=== PATIENT | male | born 1960 | race Caucasian/White ===

== ENCOUNTER 2024-03-14 17:17 | Inpatient (IN) | payer MEDICARE, SELFPAY ==
[2024-03-14] VITALS (10 sets, daily range): BP systolic 117–171; BP diastolic 55–83; PULSE 87–112; RESP 10–32; TEMP 37.6–38.9; O2SAT 90–95; BMI 43.5
--- NOTE | ~2024-03-14 | XR_ITS ---
EXAMINATION: XR CHEST CLINICAL INFORMATION: ET tube and OG tube placement COMPARISON: Earlier same day, and 03/14/2024. TECHNIQUE: AP portable view of the chest was obtained. FINDINGS: ET tube has been placed, lying approximately 1.9 cm above the krystyna. This is satisfactory although retraction of approximately 1 cm should be considered for ideal placement. Enteric tube has been place, with sidehole and tip subdiaphragmatic in the fundus of the stomach. Cardiomegaly and pulmonary abnormalities are unchanged. There is no pneumothorax. No soft tissue or bone abnormality. XR/XR chest 1V IMPRESSION: 1. ET tube and OG tube as detailed. 2. Otherwise no change. No pneumothorax. Electronically signed by: Moose Silva MD 03/19/2024 02:57 PM [facility]
--- NOTE | ~2024-03-14 | CT_ITS ---
CLINICAL HISTORY: altered mentation CT head without contrast Comparison: None Findings: No intra-axial mass, midline shift, hydrocephalus, or acute hemorrhage. There is bilateral frontal encephalomalacia. No significant atrophy-like change or white matter disease. The visualized paranasal sinuses and mastoid air cells are normal. The orbits are within normal limits. No skull fracture. IMPRESSION: 1. No acute intracranial findings. This document has been electronically signed by: Hira Garza MD on 03/14/2024 20:34:26
--- NOTE | ~2024-03-14 | CT_ITS ---
CLINICAL HISTORY: Hypoxia and dyspnea, sudden onset CT angiography chest with contrast. 3D Postprocessing. Comparison: None Findings: The heart size is normal. RV/LV ratio is normal. Unremarkable thoracic aorta and great vessels. No aneurysm. No pulmonary artery filling defects. There is coronary arterial calcification. The visualized thyroid and mediastinum are otherwise unremarkable. There is calcified left pleural plaque and underlying pulmonary scarring versus atelectasis.. The visualized upper abdomen is unremarkable. The bones are intact. IMPRESSION: 1. No pulmonary emboli. This document has been electronically signed by: Hira Garza MD on 03/14/2024 20:36:54
--- NOTE | ~2024-03-14 | CT_ITS ---
CLINICAL HISTORY: Abdominal bloating, unable to obtain history CT abdomen and pelvis with contrast Comparison: None Findings: See report from today's contemporaneously performed chest CT for information regarding findings in the lower chest There are gallstones in a contracted gallbladder with the gallbladder otherwise unremarkable. Unremarkable solid organs. There is right renal parenchymal calculus. There is minimal right hydroureteronephrosis without readily apparent etiology. Correlate for recently passed calculus No bowel obstruction, pneumoperitoneum, or pneumatosis. Urinary bladder is decompressed with indwelling Martins catheter limiting evaluation. Pelvic contents are otherwise unremarkable. Normal appendix. The bones are intact. IMPRESSION: Minimal right hydroureteronephrosis possibly related to recently passed calculus. Correlate clinically.. This document has been electronically signed by: Hira Garza MD on 03/14/2024 20:42:21
--- NOTE | ~2024-03-14 | XR_ITS ---
CLINICAL HISTORY: hypoxia and dyspnea 1 view chest x-ray Comparison: None Findings: Portions of the exam are obscured by overlying material. There is consolidation in the left upper lobe, possible pneumonia, atelectasis, or scarring. Normal size heart. No acute fracture. IMPRESSION: 1. Left upper lobe consolidation, differential considerations noted. This document has been electronically signed by: Hira Garza MD on 03/14/2024 18:22:07
--- NOTE | ~2024-03-14 | XR_ITS ---
EXAMINATION: XR CHEST CLINICAL INFORMATION: f/u PNA COMPARISON: 03/14/2024 chest x-ray and CTPA. TECHNIQUE: Frontal view of the chest was obtained. FINDINGS: Cardiomegaly redemonstrated. Prominence of the vascular pedicle, likely magnification from AP technique. Aortic calcifications. Mild vascular engorgement in the hilar regions. There has been development of nodular appearing parenchymal opacities in the right lower lung, and there are stable linear segmental opacities in the retrocardiac region left lower lobe. Suspect a small left effusion. No discrete soft tissue or osseous abnormality. XR/XR chest 1V IMPRESSION: 1. Developing/worsening nodular opacities right lower lobe, suspect worsening pneumonia. 2. Stable linear segmental opacities at left lower lobe, atelectasis versus pneumonia. 3. Cardiomegaly with vascular congestion in the hilar regions. There may be a mild component of underlying interstitial pulmonary edema. Electronically signed by: Moose Silva MD 03/19/2024 09:12 AM [facility]
--- NOTE | ~2024-03-14 | XR_ITS ---
CLINICAL HISTORY: ?Aspiration 1 view chest x-ray Comparison: 03/19/2024 Findings: Stable left basilar densities noted. Right lung remains clear. No pneumothorax. Heart size enlarged. No acute bony abnormalities. Impression: Stable left basilar findings without new abnormality This document has been electronically signed by: Orlando Healy MD on 04/02/2024 20:34:20
--- NOTE | 2024-03-14 17:31 | ECG_ITS ---
Test Reason : SOB Blood Pressure : */* mmHG Vent. Rate : 110 BPM Atrial Rate : 110 BPM P-R Int : 184 ms QRS Dur : 150 ms QT Int : 362 ms P-R-T Axes : 100 266 57 degrees QTcB Int : 489 ms Suspect limb lead reversal, interpretation assumes no reversal Sinus tachycardia Right bundle branch block Possible Lateral infarct , age undetermined Abnormal ECG No previous ECGs available Referred By: Jaspal Calvo Electronically Signed By: Gabe Sloan
[2024-03-14] MEDS: methylPREDNISolone Sod Succ 125 MG/2 ML VIAL IVPUSH (17:47)
[2024-03-14] MEDS: Albuterol Sulfate 5 MG, Albuterol/Iprat 2.5/0.5MG 3 ML 3 ML INHALE (17:54)
[2024-03-14 17:56] LABS: MANUAL DIFF FLAG NO
--- NOTE | 2024-03-14 17:58 | ED.SOB ---
HPI - SOB/Dyspnea General Chief Complaint: Dyspnea Stated Complaint: sob from snf, cyanotic per rn Time Seen by Provider: 03/14/24 17:31 Source: EMS and RN notes reviewed Mode of arrival: EMS Limitations: altered mental status History of Present Illness ED Provider: Jaspal Calvo DO HPI Narrative: 63-year-old DNR/DNI (per VIVIANAShlomo Carly Tran [phone]) male with past medical history of COPD unknown if he is on O2 with prescriptions noted to include Breo Ellipta and Spiriva, hyperlipidemia, insulin-dependent diabetes, traumatic brain injury with seizures on topiramate, schizophrenia, BPH, obstructive sleep apnea, coronary artery disease, insomnia, current tobacco use and obesity who presents to the ED due to hypoxia and cyanosis as well as tachypnea that was noticed to progressively worsened over the last hour prior to arrival. EMS reports the patient was still hypoxic on 15 L of non-rebreather. They administered [address] CP[address] with improvement in saturations. They state the patient was not allowing for them to obtain an IV but was not providing any additional history due to his condition. At this time history is unavailable from the patient secondary to his condition. Due to concern for immediate deterioration, the patient required my immediate attention. When daughter arrives, she confirms that the patient is DNR/DNI and not on oxygen. Related Data Allergies Allergy/AdvReac Type Severity Reaction Status Date / Time No Known Allergies Allergy Verified 03/14/24 17:49 Review of Systems Review of Systems: Yes Unobtainable due to mental condition PMFSH Social History Social History Advance Directives: No Advance Directives Information Provided: No Do you have a plan to hurt others: No Plan Physical Exam Vital Signs: Vital Signs: Last Vital Signs Temp 99.7 F 03/14/24 21:16 Pulse 87 03/14/24 21:16 Resp 10 L 03/14/24 21:16 BP 117/55 L 03/14/24 21:16 Pulse Ox 91 L 03/14/24 21:16 O2 Del Method High Flow Nasal C annula, Oxymask 03/14/24 21:16 BMI result Body Mass Index 43.5 Constitutional: ?Obtunded, but responds to light physical stimuli, opening his eyes, not speaking HEENT: ?Normocephalic, atraumatic. Eyes: ?PERRL, EOMI Neck: ?Supple, nontender Chest: ?No chest wall tenderness Respiratory: ?Tachypnea, increased work of breathing, diminished lung sounds throughout all lung coffey, no inspiratory crackles, BiPAP in place Cardio: ?Tachycardic with regular rhythm, no murmur, 1+ radial and DP pulses symmetrically GI: ?Soft, nondistended, nontender Back: ?Unable to sit up on his own. Nontender back. Skin: ?No rash, no lesions Neuro: ?Confused, limited exam due to medical condition, moves all 4 extremities, no focal deficits Extremities: ?No swelling or tenderness, full range of motion Psych: ?Calm, alert and cooperative, appropriate behavior Medications Administered Discontinued Medications Generic Name Dose Route Start Last Admin Trade Name Freq PRN Reason Stop Dose Admin Ceftriaxone Sodium 1 gm 03/14/24 18:26 03/14/24 18:38 Ceftriaxone Sodium 1 Gm Vial IVPUSH 03/14/24 18:27 1 gm ONCE ONE Administration Albuterol Sulfate 5 mg/ 0 mg 03/14/24 17:39 03/14/24 17:54 Albuterol/Ipratropium 3 ml INHALE 03/14/24 17:40 7.5 each ONCE ONE Administration Azithromycin 500 mg/ Sodium 250 mls @ 125 mls/hr 03/14/24 18:26 03/14/24 20:47 Chloride IV 03/14/24 20:25 Infused ONCE ONE Infusion Acetaminophen 1,000 mg in 100 mls @ 400 mls/hr 03/14/24 18:37 03/14/24 19:13 Ofirmev IV 03/14/24 18:51 Infused ONCE ONE Infusion Iohexol 100 ml 03/14/24 19:45 03/14/24 19:45 Iohexol 350 Mg/Ml 100 Ml Infus..Btl IV 03/14/24 19:46 100 ml ONCE ONE Administration Methylprednisolone Sodium Succinate 125 mg 03/14/24 17:33 03/14/24 17:47 Methylprednisolone Sod Succ 125 Mg/2 Ml Vial IVPUSH 03/14/24 17:34 125 mg ONCE ONE Administration Medical Decision Making Medical Decision Making [facility] Narrative: This is a critically ill patient presenting with hypoxia, dyspnea and tachypnea. The patient is saturating at 78% on nasal cannula upon arrival and is immediately placed on BiPAP with escalating pressure is to 20/8. Lungs do not show any signs of fluid with absence of B lines on bedside pocus. There is no peripheral edema. Differential diagnosis includes respiratory infection, COPD exacerbation, unlikely CHF exacerbation, ischemia. The patient started to have some improvement on BiPAP and is not requiring intubation immediately but we will continue to evaluate. He is also receiving methylprednisolone and a broad workup for any etiologies of his symptoms. Unstable for CT imaging at this time. Patient improved on BiPAP therapy requiring less IPAP to maintain good volumes in the 6-700 mL range. He remains obtunded. He has had no vomiting. He has increased elevation in his troponin over 100% and will be provided rectal aspirin. CT imaging of the brain shows no acute findings. CT imaging of the chest, abdomen and pelvis shows atelectasis and possible pyelonephritis per Radiology. I spoke to the radiologist on the phone. My review of the CT images show a possible pneumonia. The patient received his antibiotics. His urinalysis is unremarkable. Unfortunately the patient's venous blood gas on high-flow nasal cannula at worsened to 7.18 and pCO2 of 99. He will you placed on BiPAP therapy. No available ICU beds at this hospital currently. The patient will be signed out to the next provider pending transfer to another facility for ICU level of care. Admission/Observation Consideration of admission/observation: Escalation of care including admission/observation considered Lab Data MDM Lab Attestation statement: I reviewed the patient's lab results. No other labs to compare. Patient has a neutrophilic predominant leukocytosis at 21.8, a venous blood gas showing mild respiratory acidosis with a pH of 7.32 and a pCO2 of 68 as well as a metabolic alkalosis with a bicarb of 35, equivocal BNP at 130, mild elevation of troponin to 21. Elevated bicarb to 31, otherwise unremarkable CMP. Negative COVID, influenza and RSV. There is blood and protein in the urine but no signs of cystitis. 03/14/24 17:45 03/14/24 18:33 Labs: Lab Results 03/14/24 03/14/24 03/14/24 Range/Units 17:45 17:56 18:33 WBC 21.8 H (4.8-10.8) X10*3/uL RBC 5.07 (4.60-5.80) X10*6/uL Hgb 14.8 (14.0-18.0) g/dl Hct 47.5 (42.0-52.0) % MCV 93.7 (80.0-98.0) fL MCH 29.2 (27.0-33.0) pg MCHC 31.2 (31.0-36.0) g/dl RDW 14.2 (11.0-16.0) % Plt Count 197 (160-400) X10*3/uL MPV 10.5 (9.4-12.4) fL Immature Gran % (Auto) 0.6 H (0.0-0.4) % Neut % (Auto) 86.0 H (45-73) % Lymph % (Auto) 6.3 L (20-40) % Wilcox % (Auto) 5.7 (2-11) % Eos % (Auto) 1.1 (0-4) % Baso % (Auto) 0.3 (0-2) % Lymph # (Auto) 1.4 (1.2-4.9) X10*3/uL Wilcox # (Auto) 1.2 (0.1-1.2) X10*3/uL Eos # (Auto) 0.2 (0.0-0.4) X10*3/uL Baso # (Auto) 0.1 (0.0-0.2) X10*3/uL Abs Immat Gran (auto) 0.13 H (0.00-0.03) X10*3/uL Absolute Neuts (auto) 18.8 H (2.0-8.3) x10*3/uL Absolute Nucleated RBC 0.000 (0.0-0.012) X10*3/uL Nucleated RBC % (auto) 0.0 (0.0-0.2) /100WBC VBG pH 7.32 (7.32-7.43) VBG pCO2 68 mmHg VBG pO2 53 mmHg VBG HCO3 35 H (22-26) mmol/L VBG O2 Saturation 81.0 % VBG Base Excess 6.8 mmol/L Sodium 137 (135-145) mmol/L Potassium 4.3 (3.3-5.1) mmol/L Chloride 98 (96-108) mmol/L Carbon Dioxide 31 H (22-29) mmol/L Anion Gap 12 (12-20) BUN 17 H (9-16) mg/dL Creatinine 0.91 (0.5-1.4) mg/dL Estim Creat Clear Calc 123.4 Estimated GFR > 60 Random Glucose 210 H (60-115) mg/dL Lactic Acid 1.4 (0.5-2.0) mmol/L Calcium 8.6 (8.4-10.2) mg/dL Magnesium 2.2 (1.6-2.6) mg/dL Total Bilirubin 0.5 (0.0-1.0) mg/dL AST 19 (5-37) U/L ALT 17 (0-40) U/L Alkaline Phosphatase 86 (39-117) U/L Troponin I High Sens 21.2 (<3.5-35.0) ng/L B-Natriuretic Peptide 130 H (<100) pg/mL Total Protein 7.7 (6.5-8.0) g/dL Albumin 3.8 (3.5-5.0) g/dL Lipase 21 (8-78) U/L Urine Color Urine Appearance Urine pH (5.0-9.0) Ur Specific [place] (1.005-1.025) Urine Protein (Neg-Trace) mg/dL Urine Glucose (UA) (Negative) mg/dL Urine Ketones (Negative) mg/dL Urine Blood (Negative) Urine Nitrite (Negative) Ur Leukocyte Esterase (Negative) Urine RBC (0-2) /HPF Urine WBC (0-5) /HPF Ur Squamous Epith Cells (0-2) /HPF Urine Bacteria (None Seen) Hyaline Casts (0-2) /LPF Influenza Type A (PCR) NEGATIVE (Negative) Influenza Type B (PCR) NEGATIVE (Negative) RSV RNA Qual (PCR) NEGATIVE (Negative) SARS-CoV-2 RNA (RT-PCR) NEGATIVE (Negative) 03/14/24 03/14/24 03/14/24 Range/Units 18:36 20:52 21:27 WBC (4.8-10.8) X10*3/uL RBC (4.60-5.80) X10*6/uL Hgb (14.0-18.0) g/dl Hct (42.0-52.0) % MCV (80.0-98.0) fL MCH (27.0-33.0) pg MCHC (31.0-36.0) g/dl RDW (11.0-16.0) % Plt Count (160-400) X10*3/uL MPV (9.4-12.4) fL Immature Gran % (Auto) (0.0-0.4) % Neut % (Auto) (45-73) % Lymph % (Auto) (20-40) % Wilcox % (Auto) (2-11) % Eos % (Auto) (0-4) % Baso % (Auto) (0-2) % Lymph # (Auto) (1.2-4.9) X10*3/uL Wilcox # (Auto) (0.1-1.2) X10*3/uL Eos # (Auto) (0.0-0.4) X10*3/uL Baso # (Auto) (0.0-0.2) X10*3/uL Abs Immat Gran (auto) (0.00-0.03) X10*3/uL Absolute Neuts (auto) (2.0-8.3) x10*3/uL Absolute Nucleated RBC (0.0-0.012) X10*3/uL Nucleated RBC % (auto) (0.0-0.2) /100WBC VBG pH 7.18 L* (7.32-7.43) VBG pCO2 99 mmHg VBG pO2 62 mmHg VBG HCO3 37 H (22-26) mmol/L VBG O2 Saturation 84.0 % VBG Base Excess 4.8 mmol/L Sodium (135-145) mmol/L Potassium (3.3-5.1) mmol/L Chloride (96-108) mmol/L Carbon Dioxide (22-29) mmol/L Anion Gap (12-20) BUN (9-16) mg/dL Creatinine (0.5-1.4) mg/dL Estim Creat Clear Calc Estimated GFR Random Glucose (60-115) mg/dL Lactic Acid (0.5-2.0) mmol/L Calcium (8.4-10.2) mg/dL Magnesium (1.6-2.6) mg/dL Total Bilirubin (0.0-1.0) mg/dL AST (5-37) U/L ALT (0-40) U/L Alkaline Phosphatase (39-117) U/L Troponin I High Sens 46.2 H D (<3.5-35.0) ng/L B-Natriuretic Peptide (<100) pg/mL Total Protein (6.5-8.0) g/dL Albumin (3.5-5.0) g/dL Lipase (8-78) U/L Urine Color Yellow Urine Appearance Clear Urine pH 6.0 (5.0-9.0) Ur Specific [place] 1.015 (1.005-1.025) Urine Protein 300 (3+) H (Neg-Trace) mg/dL Urine Glucose (UA) Negative (Negative) mg/dL Urine Ketones Negative (Negative) mg/dL Urine Blood Large (3+) H (Negative) Urine Nitrite Negative (Negative) Ur Leukocyte Esterase Negative (Negative) Urine RBC >20 H (0-2) /HPF Urine WBC 0-5 (0-5) /HPF Ur Squamous Epith Cells 0-2 (0-2) /HPF Urine Bacteria None Seen (None Seen) Hyaline Casts 3-5 (0-2) /LPF Influenza Type A (PCR) (Negative) Influenza Type B (PCR) (Negative) RSV RNA Qual (PCR) (Negative) SARS-CoV-2 RNA (RT-PCR) (Negative) Independent Interpretation I performed an independent interpretation of an: EKG Interpretation: Sinus tachycardia at 110 beats per minute, right bundle-branch block, no diagnostic ST wave abnormalities, unremarkable intervals otherwise and no prior for comparison. Critical Care Time Critical Care Time Critical Care Time: Yes Total Critical Care Time: 75 Attestation: Patient requiring immediate attention at the bedside for impending respiratory and airway deterioration, placed on BiPAP therapy, provided bronchodilator therapy and assess for mental status improvements. Transitioned to high-flow nasal cannula. Administered aspirin for NSTEMI, likely demand ischemia. Spoke to family at the bedside about patient's wishes. Spoke to hospitalist and social work specialist. Jaspal Calvo, DO Discharge Plan Discharge Clinical Impression: Acute exacerbation of chronic obstructive pulmonary disease (COPD), Respiratory failure with hypoxia and hypercapnia, Non-ST elevation [place] (NSTEMI), Pneumonia, Encephalopathy Patient Disposition: Still a Patient Print Language: Latvian
[2024-03-14 18:03] LABS: VBG Base Excess 6.8 mmol/L; VBG HCO3 35 mmol/L (22-26); VBG pCO2 68 mmHg; VBG pH 7.32 (7.32-7.43); VBG pO2 53 mmHg
[2024-03-14 18:05] LABS: Venous Blood Gas Refer to POC result
[2024-03-14 18:06] LABS: Basophils Absolute Auto 0.1 X10*3/uL (0.0-0.2); Basophils Percent Auto 0.3 % (0-2); Eosinophils Absolute Auto 0.2 X10*3/uL (0.0-0.4); Eosinophils Percent Auto 1.1 % (0-4); Hematocrit 47.5 % (42.0-52.0); Hemoglobin 14.8 g/dl (14.0-18.0); Imm Gran Abs Auto 0.13 X10*3/uL (0.00-0.03); Imm Gran Pct Auto 0.6 % (0.0-0.4); Lymphocytes Absolute Auto 1.4 X10*3/uL (1.2-4.9); Lymphocytes Percent Auto 6.3 % (20-40); Mean Corpuscular HGB Conc 31.2 g/dl (31.0-36.0); Mean Corpuscular Hemoglobin 29.2 pg (27.0-33.0); Mean Corpuscular Volume 93.7 fL (80.0-98.0); Mean Platelet Volume 10.5 fL (9.4-12.4); Monocytes Absolute Auto 1.2 X10*3/uL (0.1-1.2); Monocytes Percent Auto 5.7 % (2-11); Neutrophils Absolute Auto 18.8 x10*3/uL (2.0-8.3); Platelet Count 197 X10*3/uL (160-400); Red Blood Count 5.07 X10*6/uL (4.60-5.80); Red Cell Distribution Width 14.2 % (11.0-16.0); White Blood Count 21.8 X10*3/uL (4.8-10.8)
[2024-03-14 18:11] LABS: Lactic Acid 1.4 mmol/L (0.5-2.0)
[2024-03-14 18:18] LABS: B Type Natriuretic Peptide 130 pg/mL (<100); Troponin-I High Sensitivity 21.2 ng/L (<3.5-35.0)
[2024-03-14] MEDS: cefTRIAXone sodium 1 GM VIAL IVPUSH (18:38)
[2024-03-14] MEDS: Azithromycin 500 MG in 0.9 % Sodium Chloride 250 ML 125 MG IV (18:38)
[2024-03-14] MEDS: Acetaminophen 1,000 MG/100 ML PIGGYBACK 400 MG IV (18:39)
[2024-03-14 19:00] LABS: Alanine Aminotransferase 17 U/L (0-40); Albumin Level 3.8 g/dL (3.5-5.0); Alkaline Phosphatase 86 U/L (39-117); Anion Gap 12 (12-20); Aspartate Amino Transferase 19 U/L (5-37); Bilirubin Total 0.5 mg/dL (0.0-1.0); Blood Urea Nitrogen 17 mg/dL (9-16); Calcium 8.6 mg/dL (8.4-10.2); Carbon Dioxide 31 mmol/L (22-29); Chloride 98 mmol/L (96-108); Creatinine Clr Calc Pharmacy 123.4; Estimated Glomerular Filt Rate > 60; Glucose Random 210 mg/dL (60-115); Lipase 21 U/L (8-78); Magnesium 2.2 mg/dL (1.6-2.6); Potassium 4.3 mmol/L (3.3-5.1); Sodium 137 mmol/L (135-145); Total Protein 7.7 g/dL (6.5-8.0)
[2024-03-14 19:07] LABS: Influenza A PCR NEGATIVE (Negative); Influenza B PCR NEGATIVE (Negative); Resp Syncy Virus RNA Qual PCR NEGATIVE (Negative); SARS COV2 PCR INHOUSE NEGATIVE (Negative)
[2024-03-14 19:15] LABS: Appearance Urine Clear; Color Urine Yellow; Glucose Urine UA Negative (Negative); Leukocyte Esterase Urine Negative (Negative); Nitrite Urine Negative (Negative); Specific Gravity - Urine 1.015 (1.005-1.025); UMIC TRIGGER UACC YES; Urine Blood Large (3+) (Negative); Urine Ketones Negative (Negative); Urine Protein 300 (3+) mg/dL (Neg-Trace)
[2024-03-14 19:20] LABS: Bacteria Urine None Seen (None Seen); RBC Urine >20 /HPF (0-2); Squamous Epithelial Cell Urine 0-2 /HPF (0-2); WBC Urine 0-5 /HPF (0-5)
[2024-03-14] MEDS: iohexoL 350 MG/ML 100 ML INFUS..BTL IV (19:45)
--- NOTE | 2024-03-14 21:11 | PC.NURSE ---
patient oxygen at 86% on hiflow reached out to respiratory, d/t patient having mouth open suggested this RN place oxymask. 4LOxymask placed over hi flow O2 at 90%
[2024-03-14 21:22] LABS: Troponin-I High Sensitivity 46.2 ng/L (<3.5-35.0)
[2024-03-14 21:35] LABS: VBG Base Excess 4.8 mmol/L; VBG HCO3 37 mmol/L (22-26); VBG pCO2 99 mmHg; VBG pH 7.18 (7.32-7.43); VBG pO2 62 mmHg
[2024-03-14 21:35] LABS: Venous Blood Gas Refer to POC result
[2024-03-14] MEDS: Aspirin 300 MG SUPP.RECT PR (21:43)
[2024-03-15] VITALS (18 sets, daily range): BP systolic 99–130; BP diastolic 52–89; PULSE 63–92; RESP 13–24; TEMP 36.5–37.4; O2SAT 88–95
[2024-03-15 01:28] LABS: Venous Blood Gas Refer to POC result
--- NOTE | 2024-03-15 01:31 | PC.NURSE ---
patient riping off Bipap, swearing at this RN stating this RN needs to get away from him and stop bothering him, O2 when off BIPAP down to 79%, placed oxymask at 5L and 02 at 96%
[2024-03-15 01:32] LABS: VBG Base Excess 4.1 mmol/L; VBG HCO3 35 mmol/L (22-26); VBG pCO2 85 mmHg; VBG pH 7.22 (7.32-7.43); VBG pO2 31 mmHg
[2024-03-15] MEDS: Albuterol/Iprat 2.5/0.5MG 3 ML AMPUL.NEB INHALE ×4 (02:11→19:57)
[2024-03-15] MEDS: methylPREDNISolone Sod Succ 125 MG/2 ML VIAL 60 MG IVPUSH (03:04)
[2024-03-15 03:32] LABS: Troponin-I High Sensitivity 22.3 ng/L (<3.5-35.0)
--- NOTE | 2024-03-15 03:35 | PC.NURSE ---
Patient taking BIPAP off again, this RN educated patient on importance of wearing the mask patient swearing and stated i dont care , BIPAP removed by patient O2 dropped to 79% placed Oxymask and 4L and pt at 94%
--- NOTE | 2024-03-15 03:50 | PC.NURSE ---
Doctor at bedside d/t patient noncompliance with BIPAP. educated patient again on risks of not wearing BIPAP and patient declined and stated he was okay with the risks, oxymask still in place and decreased to 4L
--- NOTE | 2024-03-15 05:58 | P.HPHOSP_ITS ---
History of Present Illness Date of Service: 03/15/24 Chief Complaint: COPD Exacerbation A 63 years old male with PMH of TBI, seizure disorder, COPD not on O2 presented from snf with sudden onset SOB, dyspnea and hypoxia. DNR\DNI per HCP (his sister). The patient was unable to provide much of history. he reported feeling SOB and having (breathing problem). placed on Bipap and weaned down to high flow oxygen. The patient became obtunded and repeat blood gas showed hypercapnia and respiratory acidosis. he was placed on BiPap again and plan was to transfer him to different hospital. He improved and started to remove the bipap and asking not to be moved. his HCP was contacted by ER provider and reported not to try to bother him with BiPAP if he refuses it. the patient looks more alert at time of interview and reports feeling better but was confused about his time in ER. CXR negative for any acute findings. Negative for Covid,RSV and Flu. Has Leukocytosis, and elevated tro that trended down. Admitted for further management and treatment. Review of Systems 2 Review of Systems: No fever, chills or weakness No chest pain, palpitation reporting shortness of breath or coughing No abdominal pain, nausea or vomiting No urinary symptoms No any rash or wounds [facility] Medical History (Updated 03/17/24 @ 16:45 by Bee Garcia MD) Leukocytosis COPD (chronic obstructive pulmonary disease) TBI (traumatic brain injury) Social History Household Members: None Housing: Assisted Living Facility Do you presently have visiting nurse or other home services: No ([facility]) Patient Tobacco Use Status: Current everyday Tobacco user Tobacco use type: Cigarette Cigarettes Per Day: 8 e-Cigarette/Vaping Use: Never Used Second Hand Smoke Exposure: No Advance Directives Date on File: 03/15/24 Meds Allergies Allergy/AdvReac Type Severity Reaction Status Date / Time No Known Allergies Allergy Verified 03/14/24 17:49 Home Medications ?Medication ?Instructions ?Recorded ?Confirmed ?Last Taken ?Type acetaminophen 325 mg tablet 650 mg PO Q6H PRN Fever Or Pain 03/15/24 03/15/24 Unknown History albuterol sulfate 90 mcg/actuation 2 puff inhalation Q6H PRN 03/15/24 03/15/24 Unknown History aerosol inhaler Bronchospasm aspirin 81 mg tablet,delayed 81 mg PO DAILY 03/15/24 03/15/24 Unknown History release atorvastatin 10 mg tablet 10 mg PO BEDTIME 03/15/24 03/15/24 Unknown History bisacodyl 10 mg rectal suppository 10 mg SD DAILY PRN constipation if 03/15/24 03/15/24 Unknown History senna ineffective fexofenadine 180 mg tablet 180 mg PO DAILY 03/15/24 03/15/24 Unknown History fluticasone furoate 100 1 inh inhalation DAILY 03/15/24 03/15/24 Unknown History mcg-vilanterol 25 mcg/dose inhalation powder (Breo Ellipta) guaifenesin 200 mg/5 mL oral liquid 400 mg PO Q4H PRN Congestion 03/15/24 03/15/24 Unknown History ibuprofen 600 mg tablet 600 mg PO Q8H PRN Pain 03/15/24 03/15/24 Unknown History insulin NPH isoph U-100 human 100 12 unit subcut BEDTIME 03/15/24 03/15/24 Unknown History unit/mL subcutaneous suspension (Humulin N NPH U-100 Insulin (isophane susp)) insulin NPH isoph U-100 human 100 18 unit subcut DAILY 03/15/24 03/15/24 Unknown History unit/mL subcutaneous suspension (Humulin N NPH U-100 Insulin (isophane susp)) lithium carbonate 150 mg capsule 150 mg PO BID 03/15/24 03/15/24 Unknown History lithium carbonate 300 mg capsule 300 mg PO BID 03/15/24 03/15/24 Unknown History lorazepam 1 mg tablet 1 mg PO BID 03/15/24 03/15/24 Unknown History melatonin 3 mg tablet 9 mg PO BEDTIME 03/15/24 03/15/24 Unknown History metformin 500 mg tablet 500 mg PO BID 03/15/24 03/15/24 Unknown History ondansetron HCl 8 mg tablet 8 mg PO Q6H PRN nausea/vomiting 03/15/24 03/15/24 Unknown History peg [id number] 1 2 drp ophthalmic (eye) Q8H PRN 03/15/24 03/15/24 Unknown History %-0.2 %-0.2 % eye drops itchy eyes (Artificial Tears ([id number])) propranolol 10 mg tablet 5 mg PO BID 03/15/24 03/15/24 Unknown History sennosides 8.6 mg-docusate sodium 1 tab-cap PO BID 03/15/24 03/15/24 Unknown History 50 mg tablet (Senna with Docusate Sodium) simethicone 80 mg tablet 80 mg PO Q6H PRN 03/15/24 03/15/24 Unknown History flatulence/bloating sodium phosphates 19 gram-7 118 ml SD DAILY PRN constipation 03/15/24 03/15/24 Unknown History gram/118 mL enema (Fleet Enema) if bisacodyl supp ineffective tamsulosin 0.4 mg capsule 0.4 mg PO BEDTIME 03/15/24 03/15/24 Unknown History tiotropium bromide 2.5 2 puff inhalation DAILY 03/15/24 03/15/24 Unknown History mcg/actuation mist for inhalation (Spiriva Respimat) topiramate 50 mg tablet 50 mg PO BID 03/15/24 03/15/24 Unknown History trazodone 50 mg tablet 75 mg PO BEDTIME 03/15/24 03/15/24 Unknown History Physical Exam 2 Vital Signs and Narrative: Vital Signs: Last Vital Signs Temp 98.2 F 03/15/24 03:11 Pulse 76 03/15/24 03:11 Resp 16 03/15/24 03:11 BP 130/58 L 03/15/24 03:11 Pulse Ox 90 L 03/15/24 03:11 O2 Del Method BiPAP 03/15/24 03:11 O2 Flow Rate 5 03/15/24 01:32 BMI result Body Mass Index 43.5 Const: Other: Constitutional : Awake, interactive, not in distress Neck : Normal inspection, Supple Cardiovascular : RRR, no JVP, no lower extremity edema Respiratory : decreased bilateral air entry, no crackles, bilateral expiratory wheezes Gastrointestinal: soft, lax, Normal bowel sounds, Non tender Skin : Warm, Dry Neurological : Alert & oriented to self and place, No focal deficit Results Labs 03/19/24 06:12 03/19/24 06:11 Labs: Laboratory Results - last 24 hr 03/14/24 03/14/24 03/14/24 17:45 17:56 18:33 MCV 93.7 MCH 29.2 MCHC 31.2 RDW 14.2 Plt Count 197 MPV 10.5 Immature Gran % (Auto) 0.6 H Neut % (Auto) 86.0 H Lymph % (Auto) 6.3 L [place] % (Auto) 5.7 Eos % (Auto) 1.1 Baso % (Auto) 0.3 Lymph # (Auto) 1.4 [place] # (Auto) 1.2 Eos # (Auto) 0.2 Baso # (Auto) 0.1 Abs Immat Gran (auto) 0.13 H Absolute Neuts (auto) 18.8 H Absolute Nucleated RBC 0.000 Nucleated RBC % (auto) 0.0 VBG pH 7.32 VBG pCO2 68 VBG pO2 53 VBG HCO3 35 H VBG O2 Saturation 81.0 VBG Base Excess 6.8 Anion Gap 12 Estim Creat Clear Calc 123.4 Estimated GFR > 60 Random Glucose 210 H Lactic Acid 1.4 Calcium 8.6 Magnesium 2.2 Total Bilirubin 0.5 AST 19 ALT 17 Alkaline Phosphatase 86 Troponin I High Sens 21.2 B-Natriuretic Peptide 130 H Total Protein 7.7 Albumin 3.8 Lipase 21 Urine Color Urine Appearance Urine pH Ur Specific [place] Urine Protein Urine Glucose (UA) Urine Ketones Urine Blood Urine Nitrite Ur Leukocyte Esterase Urine RBC Urine WBC Ur Squamous Epith Cells Urine Bacteria Hyaline Casts Influenza Type A (PCR) NEGATIVE Influenza Type B (PCR) NEGATIVE RSV RNA Qual (PCR) NEGATIVE SARS-CoV-2 RNA (RT-PCR) NEGATIVE 03/14/24 03/14/24 03/14/24 18:36 20:52 21:27 MCV MCH MCHC RDW Plt Count MPV Immature Gran % (Auto) Neut % (Auto) Lymph % (Auto) [place] % (Auto) Eos % (Auto) Baso % (Auto) Lymph # (Auto) [place] # (Auto) Eos # (Auto) Baso # (Auto) Abs Immat Gran (auto) Absolute Neuts (auto) Absolute Nucleated RBC Nucleated RBC % (auto) VBG pH 7.18 L* VBG pCO2 99 VBG pO2 62 VBG HCO3 37 H VBG O2 Saturation 84.0 VBG Base Excess 4.8 Anion Gap Estim Creat Clear Calc Estimated GFR Random Glucose Lactic Acid Calcium Magnesium Total Bilirubin AST ALT Alkaline Phosphatase Troponin I High Sens 46.2 H D B-Natriuretic Peptide Total Protein Albumin Lipase Urine Color Yellow Urine Appearance Clear Urine pH 6.0 Ur Specific [place] 1.015 Urine Protein 300 (3+) H Urine Glucose (UA) Negative Urine Ketones Negative Urine Blood Large (3+) H Urine Nitrite Negative Ur Leukocyte Esterase Negative Urine RBC >20 H Urine WBC 0-5 Ur Squamous Epith Cells 0-2 Urine Bacteria None Seen Hyaline Casts 3-5 Influenza Type A (PCR) Influenza Type B (PCR) RSV RNA Qual (PCR) SARS-CoV-2 RNA (RT-PCR) 03/15/24 03/15/24 01:26 03:09 MCV MCH MCHC RDW Plt Count MPV Immature Gran % (Auto) Neut % (Auto) Lymph % (Auto) [place] % (Auto) Eos % (Auto) Baso % (Auto) Lymph # (Auto) [place] # (Auto) Eos # (Auto) Baso # (Auto) Abs Immat Gran (auto) Absolute Neuts (auto) Absolute Nucleated RBC Nucleated RBC % (auto) VBG pH 7.22 L VBG pCO2 85 VBG pO2 31 VBG HCO3 35 H VBG O2 Saturation 33.0 VBG Base Excess 4.1 Anion Gap Estim Creat Clear Calc Estimated GFR Random Glucose Lactic Acid Calcium Magnesium Total Bilirubin AST ALT Alkaline Phosphatase Troponin I High Sens 22.3 D B-Natriuretic Peptide Total Protein Albumin Lipase Urine Color Urine Appearance Urine pH Ur Specific [place] Urine Protein Urine Glucose (UA) Urine Ketones Urine Blood Urine Nitrite Ur Leukocyte Esterase Urine RBC Urine WBC Ur Squamous Epith Cells Urine Bacteria Hyaline Casts Influenza Type A (PCR) Influenza Type B (PCR) RSV RNA Qual (PCR) SARS-CoV-2 RNA (RT-PCR) Assessment and Plan (1) Encephalopathy: Qualifiers: Encephalopathy type: unspecified encephalopathy Qualified Code(s): G 93.40 - Encephalopathy, unspecified Status: Acute (2) Respiratory failure with hypoxia and hypercapnia: Qualifiers: Chronicity: acute Qualified Code(s): J96.01 - Acute respiratory failure with hypoxia; J96.02 - Acute respiratory failure with hypercapnia Status: Acute (3) Acute exacerbation of chronic obstructive pulmonary disease (COPD): Status: Acute Plan A 63 years old male with PMH of TBI, seizure disorder, COPD not on O2 presented from snf with sudden onset SOB, dyspnea and hypoxia. DNR\DNI per HCP (his sister). Acute hypoxic\hypercapnic respiratory failure 2/2 COPD exacerbation complicated with acute metabolic encephalopathy CXR, CTA chest negative for any acute findings IV steroids repeat VBG Bronchodilator nebulizers received Abx in ED, Azithromycin for pleomorphic effect Wean O2 down as tolerated (Highflow caused resp acidosis requiring Bipap) he is DNR\DNI, BiPAP as needed (confirm HCP: sister is POA and HCP?) DMII w hyperglycemia SSI, diabetic diet Hx seizure post TBI we do not have medication list Lorazepam PRN if any seizures pending Med Rec DVT PPX Lovenox The patient will need 2 overnight hospital stay for treatment of acute hypoxic\hypercapnic failure pending weaning down O2 Quality Stroke Does the patient have a stroke diagnosis?: No VTE Prior VTE?: No VTE Risk Level:: Medical - moderate - high VTE Device Contraindication: Treatment Not Indicated VTE Drug Contraindication: N/A - Med Ordered
[2024-03-15 07:33] LABS: Glucose, Whole Blood 280 mg/dL (60-115)
--- NOTE | 2024-03-15 07:47 | HO.PM.IMPN ---
Subjective Subjective Date of Service: 03/15/24 Interval History: f/u on acute hypoxic, hypercarbic resp failure d/t copd, pna causing metabolic encephalopathy with periods of aggression, refusing bipap and care Physical Exam Vital Signs: Vital Signs: Last Vital Signs Temp 98.8 F 03/15/24 07:39 Pulse 77 03/15/24 07:39 Resp 18 03/15/24 07:39 BP 105/89 03/15/24 07:39 Pulse Ox 95 03/15/24 07:39 O2 Del Method Oxymask 03/15/24 07:39 O2 Flow Rate 3 03/15/24 07:39 BMI result Body Mass Index 43.5 Const: Other: General: Awake, alert and very agresive stating he's going ot sing himself out Resp: no wheezes, normal effort CVS: S1,S2,RRR GI: +BS, NT, no distention Skin: No rash Neuro: motor grossly intact Psych: appropriate affect Objective Data Active Medications Acetaminophen (Acetaminophen 325 Mg Tablet) 650 mg PO Q6H PRN PRN Reason: Pain, Mild 1-3,fever,headache Albuterol Sulfate (Albuterol Sulfate (0.083%) 2.5 Mg/3 Ml Vial.Neb) 2.5 mg INHALE Q4H PRN PRN Reason: Shortness of Breath/Wheezing Albuterol/Ipratropium (Albuterol/Iprat 2.5/0.5mg 3 Ml Ampul.Neb) 3 ml INHALE RQ4H WHILE AWAKE JENNIFER Benzonatate (Benzonatate 100 Mg Capsule) 100 mg PO TID PRN PRN Reason: Cough Calcium Carbonate (Calcium Carbonate 750 Mg Tab.Chew) 750 mg PO Q4H PRN PRN Reason: Heartburn Enoxaparin Sodium (Enoxaparin Sodium 40 Mg/0.4 Ml Syringe) 40 mg SUBCUT Q24H JENNIFER Guaifenesin (Guaifenesin [place] 600 Mg Tab.Er.12h) 600 mg PO BID JENNIFER Azithromycin 500 mg/ Sodium (Chloride) 250 mls @ 125 mls/hr IV Q24H [facility] Insulin Human Lispro (Insulin Lispro 100 Unit/Ml 3 Ml Vial) 0 unit SUBCUT QIDACHS JENNIFER; Protocol Lorazepam (Lorazepam 2 Mg/Ml Vial) 2 mg IVPUSH ONCE PRN PRN Reason: Seizures Magnesium Hydroxide (Milk Of Magnesia 30 Ml Oral.Susp) 30 ml PO DAILY PRN PRN Reason: Constipation Melatonin (Melatonin 3 Mg Tablet) 6 mg PO BEDTIME PRN PRN Reason: Insomnia Methylprednisolone Sodium Succinate (Methylprednisolone Sod Succ 40 Mg/Ml Vial) 40 mg IVPUSH Q12H [facility] Ondansetron HCl (Ondansetron Hcl 4 Mg/2 Ml Vial) 4 mg IVPUSH Q8H PRN PRN Reason: Nausea and Vomiting Sodium Chloride (0.9 % Sodium Chloride Flush 3 Ml Syringe) 3 ml IVFLUSH QSHIFT [facility] Labs 03/15/24 09:38 03/15/24 09:38 Labs: Laboratory Results - last 24 hr 03/14/24 03/14/24 03/14/24 17:45 17:56 18:33 MCV 93.7 MCH 29.2 MCHC 31.2 RDW 14.2 Plt Count 197 MPV 10.5 Immature Gran % (Auto) 0.6 H Neut % (Auto) 86.0 H Lymph % (Auto) 6.3 L [place] % (Auto) 5.7 Eos % (Auto) 1.1 Baso % (Auto) 0.3 Lymph # (Auto) 1.4 [place] # (Auto) 1.2 Eos # (Auto) 0.2 Baso # (Auto) 0.1 Abs Immat Gran (auto) 0.13 H Absolute Neuts (auto) 18.8 H Absolute Nucleated RBC 0.000 Nucleated RBC % (auto) 0.0 VBG pH 7.32 VBG pCO2 68 VBG pO2 53 VBG HCO3 35 H VBG O2 Saturation 81.0 VBG Base Excess 6.8 Anion Gap 12 Estim Creat Clear Calc 123.4 Estimated GFR > 60 POC Glucose Random Glucose 210 H Lactic Acid 1.4 Calcium 8.6 Magnesium 2.2 Total Bilirubin 0.5 AST 19 ALT 17 Alkaline Phosphatase 86 Troponin I High Sens 21.2 B-Natriuretic Peptide 130 H Total Protein 7.7 Albumin 3.8 Lipase 21 Urine Color Urine Appearance Urine pH Ur Specific [place] Urine Protein Urine Glucose (UA) Urine Ketones Urine Blood Urine Nitrite Ur Leukocyte Esterase Urine RBC Urine WBC Ur Squamous Epith Cells Urine Bacteria Hyaline Casts Influenza Type A (PCR) NEGATIVE Influenza Type B (PCR) NEGATIVE RSV RNA Qual (PCR) NEGATIVE SARS-CoV-2 RNA (RT-PCR) NEGATIVE 03/14/24 03/14/24 03/14/24 18:36 20:52 21:27 MCV MCH MCHC RDW Plt Count MPV Immature Gran % (Auto) Neut % (Auto) Lymph % (Auto) [place] % (Auto) Eos % (Auto) Baso % (Auto) Lymph # (Auto) [place] # (Auto) Eos # (Auto) Baso # (Auto) Abs Immat Gran (auto) Absolute Neuts (auto) Absolute Nucleated RBC Nucleated RBC % (auto) VBG pH 7.18 L* VBG pCO2 99 VBG pO2 62 VBG HCO3 37 H VBG O2 Saturation 84.0 VBG Base Excess 4.8 Anion Gap Estim Creat Clear Calc Estimated GFR POC Glucose Random Glucose Lactic Acid Calcium Magnesium Total Bilirubin AST ALT Alkaline Phosphatase Troponin I High Sens 46.2 H D B-Natriuretic Peptide Total Protein Albumin Lipase Urine Color Yellow Urine Appearance Clear Urine pH 6.0 Ur Specific [place] 1.015 Urine Protein 300 (3+) H Urine Glucose (UA) Negative Urine Ketones Negative Urine Blood Large (3+) H Urine Nitrite Negative Ur Leukocyte Esterase Negative Urine RBC >20 H Urine WBC 0-5 Ur Squamous Epith Cells 0-2 Urine Bacteria None Seen Hyaline Casts 3-5 Influenza Type A (PCR) Influenza Type B (PCR) RSV RNA Qual (PCR) SARS-CoV-2 RNA (RT-PCR) 03/15/24 03/15/24 03/15/24 01:26 03:09 07:13 MCV MCH MCHC RDW Plt Count MPV Immature Gran % (Auto) Neut % (Auto) Lymph % (Auto) [place] % (Auto) Eos % (Auto) Baso % (Auto) Lymph # (Auto) [place] # (Auto) Eos # (Auto) Baso # (Auto) Abs Immat Gran (auto) Absolute Neuts (auto) Absolute Nucleated RBC Nucleated RBC % (auto) VBG pH 7.22 L VBG pCO2 85 VBG pO2 31 VBG HCO3 35 H VBG O2 Saturation 33.0 VBG Base Excess 4.1 Anion Gap Estim Creat Clear Calc Estimated GFR POC Glucose 280 H Random Glucose Lactic Acid Calcium Magnesium Total Bilirubin AST ALT Alkaline Phosphatase Troponin I High Sens 22.3 D B-Natriuretic Peptide Total Protein Albumin Lipase Urine Color Urine Appearance Urine pH Ur Specific [place] Urine Protein Urine Glucose (UA) Urine Ketones Urine Blood Urine Nitrite Ur Leukocyte Esterase Urine RBC Urine WBC Ur Squamous Epith Cells Urine Bacteria Hyaline Casts Influenza Type A (PCR) Influenza Type B (PCR) RSV RNA Qual (PCR) SARS-CoV-2 RNA (RT-PCR) Assessment and Plan (1) Acute exacerbation of chronic obstructive pulmonary disease (COPD): Status: Acute (2) Respiratory failure with hypoxia and hypercapnia: Status: Acute (3) Pneumonia: Status: Acute Plan A 63 years old male with PMH of TBI, history of schizophrenia, seizure disorder, COPD not on O2 [facility] with sudden onset SOB, dyspnea and hypoxia. DNR\DNI per HCP (his sister). He has COPD exacerbation with hypoxia and hypercarbia. Acute hypoxic\hypercapnic respiratory failure d/t COPD exacerbation complicated by acute metabolic encephalopathy, and resp acidodis he has been refusing bipap blood gas seems to be improving from earlier initially discussed with sister who is HCP and was ok with patient refusing care, i had another conversation with her and she was ok with rescue bipap, and sedation if needed, one ought to be very careful with Psychotropics given history history neuroleptic malignant syndrome and therefore use ativan if needed for anxiety. ICU/pulmonology consulation. Repeat ABG later CXR [place] PNA, however CTA chest negative for any acute findings IV steroids Bronchodilator by nebulizers Azithro + Ceftriaxone for proable PNA BiPAP if retaining CO2 DMII w hyperglycemia He is on NPH 18 in am and 12 at night, and metformin add Lantus 12 in am, 8 at night, slidding scale and diabetic diet Hx seizure post TBI, schizophrenia, mood d/o restart home med including lithium, topomax, trazadone, ativan HLD--statin BPH--flomax HCP is sister Tran Pillai, I confirmed DNR/DNI status, bipap OK, and [facility] proxy invoked DVT PPX Lovenox The patient will need 2 overnight hospital stay for treatment of acute hypoxic\hypercapnic failure pending weaning down O2 Quality Stroke Does the patient have a stroke diagnosis?: No VTE Prior VTE?: No VTE Risk Level:: Medical - moderate - high VTE Device Contraindication: Treatment Not Indicated VTE Drug Contraindication: N/A - Med Ordered
[2024-03-15 08:14] LABS: ABG Base Excess 6.2 mmol/L; ABG HCO3 36 mmol/L (22-26); ABG pCO2 75 mmHg (32-45); ABG pH 7.28 (7.35-7.45); ABG pO2 108 mmHg (83-108)
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
[2024-03-15 08:40] LABS: ABG Refer to POC result
--- NOTE | 2024-03-15 08:50 | PC.RT ---
Repeat ABG this am shows a respiratory acidosis. RT attempted to place pt on bipap, pt began yelling and shoving mask away. Pt refusing to wear bipap. RT explained the necessity of bipap and the severity of the blood test, pt states he does not care and won't wear it. MD Grover aware of pt refusal. Pt on oxy mask at this time.
[2024-03-15] MEDS: methylPREDNISolone Sod Succ 40 MG/ML VIAL IVPUSH (09:06)
[2024-03-15] MEDS: Enoxaparin Sodium 40 MG/0.4 ML SYRINGE SUBCUT (09:06)
[2024-03-15] MEDS: Insulin Lispro 100 UNIT/ML 3 ML VIAL SUBCUT ×4 (09:14→20:24)
[2024-03-15] MEDS: 0.9 % Sodium Chloride Flush 3 ML SYRINGE IVFLUSH ×3 (09:15→20:27)
[2024-03-15] MEDS: guaiFENesin LA 600 MG TAB.ER.12H PO (09:16)
--- NOTE | 2024-03-15 09:18 | PC.NURSE ---
Patient able to be redirected, currently calm and cooperative. Ate well for breakfast, agreeable to take am meds that he initially declined. Sitting up in bed watching t.v at this time. Patient declining bipap and oxy mask. Sating 90% on 2.5 liters 02.
[2024-03-15 09:45] LABS: Hematocrit 43.3 % (42.0-52.0); Hemoglobin 13.3 g/dl (14.0-18.0); Mean Corpuscular HGB Conc 30.7 g/dl (31.0-36.0); Mean Corpuscular Hemoglobin 29.5 pg (27.0-33.0); Mean Platelet Volume 10.6 fL (9.4-12.4); Platelet Count 178 X10*3/uL (160-400); Red Blood Count 4.51 X10*6/uL (4.60-5.80); Red Cell Distribution Width 14.5 % (11.0-16.0); White Blood Count 26.4 X10*3/uL (4.8-10.8)
[2024-03-15 09:47] LABS: Venous Blood Gas Refer to POC result
[2024-03-15 09:48] LABS: VBG Base Excess 3.7 mmol/L; VBG HCO3 33 mmol/L (22-26); VBG pCO2 72 mmHg; VBG pH 7.26 (7.32-7.43); VBG pO2 32 mmHg
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
--- NOTE | 2024-03-15 09:57 | PHA.MEDREC ---
Pharmacy Consult ? Medication Reconciliation Pharmacy has completed the medication reconciliation, utilized list from [facility].
[2024-03-15 10:17] LABS: Anion Gap 16 (12-20); Blood Urea Nitrogen 25 mg/dL (9-16); Calcium 8.6 mg/dL (8.4-10.2); Carbon Dioxide 28 mmol/L (22-29); Chloride 94 mmol/L (96-108); Creatinine Clr Calc Pharmacy 95.9; Estimated Glomerular Filt Rate > 60; Glucose Random 385 mg/dL (60-115); Potassium 5.2 mmol/L (3.3-5.1); Sodium 133 mmol/L (135-145)
--- NOTE | 2024-03-15 10:42 | MHC.EDTECH ---
Pt is verbally aggressive towards staff. States unhappy, states getting sued, requests help then states to leave the room.
[2024-03-15] MEDS: LORazepam 2 MG/ML VIAL IVPUSH (11:08)
[2024-03-15 11:15] LABS: Venous Blood Gas Refer to POC result
[2024-03-15 11:16] LABS: VBG Base Excess 3.8 mmol/L; VBG HCO3 33 mmol/L (22-26); VBG pCO2 74 mmHg; VBG pH 7.26 (7.32-7.43); VBG pO2 48 mmHg
[2024-03-15 11:56] LABS: MRSA Nasal PCR NEGATIVE (Negative); SA Nasal PCR NEGATIVE (Negative)
--- NOTE | 2024-03-15 12:10 | PC.RT ---
Pt SATs reading low 80'2 on monitor. RT found pt w O2 off. RT attempted to place pt back on oxy mask (which was on pt forehead). Pt started yelling and said he won't wear it. RT asked pt if he would rather wear a NC. Pt agreed. NC 2L in pt nose at this time, SATs increased to 93%.
--- NOTE | 2024-03-15 12:19 | PC.NURSE ---
Report called to JAIRON Soto/ICU
[2024-03-15 12:38] LABS: Glucose, Whole Blood 327 mg/dL (60-115)
[2024-03-15] MEDS: Aspirin Enteric Coated 81 MG TABLET.DR PO (13:01)
[2024-03-15] MEDS: Topiramate 25 MG TABLET 50 MG PO ×2 (13:01→20:19)
--- NOTE | 2024-03-15 13:01 | PM.CCPN ---
Subjective Subjective Date of Service: 03/15/24 Interval History: 63-year-old gentleman with underlying diabetes mellitus, TBI, seizure disorder, COPD admitted on 03/15/2024 with dyspnea. Patient initially noted to be in respiratory acidosis that improved with application of BiPAP. Patient was titrated to nasal cannula, however he started to retain CO2 again and was to intensive care unit for close monitoring. His respiratory viral panel is negative. CT angio chest showed evidence of pulmonary emboli, but some pulmonary edema. Critical Care Time (minutes): 0 Physical Exam Vital Signs: Vital Signs: Last Vital Signs Temp 99.3 F 03/15/24 12:15 Pulse 92 03/15/24 12:15 Resp 24 H 03/15/24 12:15 BP 115/53 L 03/15/24 12:15 Pulse Ox 92 03/15/24 12:15 O2 Del Method Nasal Cannula 03/15/24 12:15 O2 Flow Rate 2.5 03/15/24 12:15 BMI result Body Mass Index 43.5 Const: General: no acute distress, alert and awake Nutritional Appearance: obese Eyes: Sclerae: sclerae normal EOM: EOMs intact bilaterally Neck: Neck: Yes no lymphadenopathy, Yes trachea midline and Yes supple Resp: Effort & Inspection: normal respiratory effort and no respiratory distress Auscultation: crackles bilateral Cardio: Rate: regular rate Rhythm: regular rhythm Heart sounds: no gallops, no murmurs and no rubs GI: Palpation (GI): Soft to palpation and Other GI palpation findings present ( Nontender) Auscultation: normal bowel sounds Extrem: General: No clubbing, No cyanosis and Yes edema (Trace bilateral) Objective Data Labs 03/15/24 09:38 03/15/24 09:38 Labs: Laboratory Results - last 24 hr 03/14/24 03/14/24 03/14/24 17:45 17:56 18:33 WBC 21.8 H RBC 5.07 Hgb 14.8 Hct 47.5 MCV 93.7 MCH 29.2 MCHC 31.2 RDW 14.2 Plt Count 197 MPV 10.5 Immature Gran % (Auto) 0.6 H Neut % (Auto) 86.0 H Lymph % (Auto) 6.3 L Simpson % (Auto) 5.7 Eos % (Auto) 1.1 Baso % (Auto) 0.3 Lymph # (Auto) 1.4 Simpson # (Auto) 1.2 Eos # (Auto) 0.2 Baso # (Auto) 0.1 Abs Immat Gran (auto) 0.13 H Absolute Neuts (auto) 18.8 H Absolute Nucleated RBC 0.000 Nucleated RBC % (auto) 0.0 O2 Saturation ABG pH at Pt Temp ABG pCO2 at Pt Temp ABG pO2 at Pt Temp ABG HCO3 ABG Base Excess (Actual) VBG pH 7.32 VBG pCO2 68 VBG pO2 53 VBG HCO3 35 H VBG O2 Saturation 81.0 VBG Base Excess 6.8 Sodium 137 Potassium 4.3 Chloride 98 Carbon Dioxide 31 H Anion Gap 12 BUN 17 H Creatinine 0.91 Estim Creat Clear Calc 123.4 Estimated GFR > 60 POC Glucose Random Glucose 210 H Lactic Acid 1.4 Calcium 8.6 Magnesium 2.2 Total Bilirubin 0.5 AST 19 ALT 17 Alkaline Phosphatase 86 Troponin I High Sens 21.2 B-Natriuretic Peptide 130 H Total Protein 7.7 Albumin 3.8 Lipase 21 Urine Color Urine Appearance Urine pH Ur Specific [place] Urine Protein Urine Glucose (UA) Urine Ketones Urine Blood Urine Nitrite Ur Leukocyte Esterase Urine RBC Urine WBC Ur Squamous Epith Cells Urine Bacteria Hyaline Casts Nasal Screen MRSA (PCR) Nasal S. aureus Screen Nasal MRSA/S.aureus Interp Influenza Type A (PCR) NEGATIVE Influenza Type B (PCR) NEGATIVE RSV RNA Qual (PCR) NEGATIVE SARS-CoV-2 RNA (RT-PCR) NEGATIVE 03/14/24 03/14/24 03/14/24 18:36 20:52 21:27 WBC RBC Hgb Hct MCV MCH MCHC RDW Plt Count MPV Immature Gran % (Auto) Neut % (Auto) Lymph % (Auto) [place] % (Auto) Eos % (Auto) Baso % (Auto) Lymph # (Auto) [place] # (Auto) Eos # (Auto) Baso # (Auto) Abs Immat Gran (auto) Absolute Neuts (auto) Absolute Nucleated RBC Nucleated RBC % (auto) O2 Saturation ABG pH at Pt Temp ABG pCO2 at Pt Temp ABG pO2 at Pt Temp ABG HCO3 ABG Base Excess (Actual) VBG pH 7.18 L* VBG pCO2 99 VBG pO2 62 VBG HCO3 37 H VBG O2 Saturation 84.0 VBG Base Excess 4.8 Sodium Potassium Chloride Carbon Dioxide Anion Gap BUN Creatinine Estim Creat Clear Calc Estimated GFR POC Glucose Random Glucose Lactic Acid Calcium Magnesium Total Bilirubin AST ALT Alkaline Phosphatase Troponin I High Sens 46.2 H D B-Natriuretic Peptide Total Protein Albumin Lipase Urine Color Yellow Urine Appearance Clear Urine pH 6.0 Ur Specific [place] 1.015 Urine Protein 300 (3+) H Urine Glucose (UA) Negative Urine Ketones Negative Urine Blood Large (3+) H Urine Nitrite Negative Ur Leukocyte Esterase Negative Urine RBC >20 H Urine WBC 0-5 Ur Squamous Epith Cells 0-2 Urine Bacteria None Seen Hyaline Casts 3-5 Nasal Screen MRSA (PCR) NEGATIVE Nasal S. aureus Screen NEGATIVE Nasal MRSA/S.aureus Interp SEE NOTE Influenza Type A (PCR) Influenza Type B (PCR) RSV RNA Qual (PCR) SARS-CoV-2 RNA (RT-PCR) 03/15/24 03/15/24 03/15/24 01:26 03:09 07:13 WBC RBC Hgb Hct MCV MCH MCHC RDW Plt Count MPV Immature Gran % (Auto) Neut % (Auto) Lymph % (Auto) Simpson % (Auto) Eos % (Auto) Baso % (Auto) Lymph # (Auto) Simpson # (Auto) Eos # (Auto) Baso # (Auto) Abs Immat Gran (auto) Absolute Neuts (auto) Absolute Nucleated RBC Nucleated RBC % (auto) O2 Saturation ABG pH at Pt Temp ABG pCO2 at Pt Temp ABG pO2 at Pt Temp ABG HCO3 ABG Base Excess (Actual) VBG pH 7.22 L VBG pCO2 85 VBG pO2 31 VBG HCO3 35 H VBG O2 Saturation 33.0 VBG Base Excess 4.1 Sodium Potassium Chloride Carbon Dioxide Anion Gap BUN Creatinine Estim Creat Clear Calc Estimated GFR POC Glucose 280 H Random Glucose Lactic Acid Calcium Magnesium Total Bilirubin AST ALT Alkaline Phosphatase Troponin I High Sens 22.3 D B-Natriuretic Peptide Total Protein Albumin Lipase Urine Color Urine Appearance Urine pH Ur Specific [place] Urine Protein Urine Glucose (UA) Urine Ketones Urine Blood Urine Nitrite Ur Leukocyte Esterase Urine RBC Urine WBC Ur Squamous Epith Cells Urine Bacteria Hyaline Casts Nasal Screen MRSA (PCR) Nasal S. aureus Screen Nasal MRSA/S.aureus Interp Influenza Type A (PCR) Influenza Type B (PCR) RSV RNA Qual (PCR) SARS-CoV-2 RNA (RT-PCR) 03/15/24 03/15/24 03/15/24 08:04 09:38 09:42 WBC 26.4 H RBC 4.51 L Hgb 13.3 L Hct 43.3 MCV 96.0 MCH 29.5 MCHC 30.7 L RDW 14.5 Plt Count 178 MPV 10.6 Immature Gran % (Auto) Neut % (Auto) Lymph % (Auto) Simpson % (Auto) Eos % (Auto) Baso % (Auto) Lymph # (Auto) Simpson # (Auto) Eos # (Auto) Baso # (Auto) Abs Immat Gran (auto) Absolute Neuts (auto) Absolute Nucleated RBC 0.000 Nucleated RBC % (auto) 0.0 O2 Saturation 100.0 ABG pH at Pt Temp 7.28 L ABG pCO2 at Pt Temp 75 H* ABG pO2 at Pt Temp 108 ABG HCO3 36 H ABG Base Excess (Actual) 6.2 VBG pH 7.26 L VBG pCO2 72 VBG pO2 32 VBG HCO3 33 H VBG O2 Saturation 44.0 VBG Base Excess 3.7 Sodium 133 L Potassium 5.2 H D Chloride 94 L Carbon Dioxide 28 Anion Gap 16 BUN 25 H Creatinine 1.17 Estim Creat Clear Calc 95.9 Estimated GFR > 60 POC Glucose Random Glucose 385 H* Lactic Acid Calcium 8.6 Magnesium Total Bilirubin AST ALT Alkaline Phosphatase Troponin I High Sens B-Natriuretic Peptide Total Protein Albumin Lipase Urine Color Urine Appearance Urine pH Ur Specific [place] Urine Protein Urine Glucose (UA) Urine Ketones Urine Blood Urine Nitrite Ur Leukocyte Esterase Urine RBC Urine WBC Ur Squamous Epith Cells Urine Bacteria Hyaline Casts Nasal Screen MRSA (PCR) Nasal S. aureus Screen Nasal MRSA/S.aureus Interp Influenza Type A (PCR) Influenza Type B (PCR) RSV RNA Qual (PCR) SARS-CoV-2 RNA (RT-PCR) 03/15/24 03/15/24 11:08 12:34 WBC RBC Hgb Hct MCV MCH MCHC RDW Plt Count MPV Immature Gran % (Auto) Neut % (Auto) Lymph % (Auto) Simpson % (Auto) Eos % (Auto) Baso % (Auto) Lymph # (Auto) Simpson # (Auto) Eos # (Auto) Baso # (Auto) Abs Immat Gran (auto) Absolute Neuts (auto) Absolute Nucleated RBC Nucleated RBC % (auto) O2 Saturation ABG pH at Pt Temp ABG pCO2 at Pt Temp ABG pO2 at Pt Temp ABG HCO3 ABG Base Excess (Actual) VBG pH 7.26 L VBG pCO2 74 VBG pO2 48 VBG HCO3 33 H VBG O2 Saturation 77.0 VBG Base Excess 3.8 Sodium Potassium Chloride Carbon Dioxide Anion Gap BUN Creatinine Estim Creat Clear Calc Estimated GFR POC Glucose 327 H Random Glucose Lactic Acid Calcium Magnesium Total Bilirubin AST ALT Alkaline Phosphatase Troponin I High Sens B-Natriuretic Peptide Total Protein Albumin Lipase Urine Color Urine Appearance Urine pH Ur Specific [place] Urine Protein Urine Glucose (UA) Urine Ketones Urine Blood Urine Nitrite Ur Leukocyte Esterase Urine RBC Urine WBC Ur Squamous Epith Cells Urine Bacteria Hyaline Casts Nasal Screen MRSA (PCR) Nasal S. aureus Screen Nasal MRSA/S.aureus Interp Influenza Type A (PCR) Influenza Type B (PCR) RSV RNA Qual (PCR) SARS-CoV-2 RNA (RT-PCR) Progress Note: A&P Assessment and plan (1) Acute respiratory failure with hypercapnia: Status: Acute (2) COPD (chronic obstructive pulmonary disease): Status: Acute (3) Pulmonary edema: Status: Acute Plan Assessment: 63-year-old gentleman with underlying TBI, seizure disorder, and COPD admitted with acute hypercapnic respiratory failure secondary pulmonary edema. Plan: Neuro: No acute issues. Underlying TBI/seizure disorder, continue lithium and topiramate. Cardiac: No acute issues. Pulmonary: Acute hypercapnic respiratory failure secondary to pulmonary edema improved with BiPAP, but record off BiPAP requiring close monitoring, expect to improve with diuresis. Underlying COPD. Renal: No acute issues. Endo: No acute issues. Underlying diabetes mellitus, continue Lantus/sliding scale insulin. GI: No acute issues. ID: No acute issues Heme/Onc: No acute issues. Psych: No acute issues. Miscellaneous: No acute issues. Prophylaxis: Lovenox Diet: Diabetic Quality Stroke Does the patient have a stroke diagnosis?: No VTE Prior VTE?: No VTE Risk Level:: Medical - moderate - high VTE Device Contraindication: Treatment Not Indicated VTE Drug Contraindication: N/A - Med Ordered
[2024-03-15] MEDS: Lithium Carbonate 300 MG CAPSULE PO ×2 (13:02→20:18)
[2024-03-15] MEDS: Insulin Glargine,Hum.rec.anlog 100 UNIT/ML 10 ML VIAL 12 UNIT SUBCUT (13:02)
[2024-03-15] MEDS: Furosemide 40 MG/4 ML VIAL IVPUSH (13:50)
[2024-03-15 16:24] LABS: Glucose, Whole Blood 271 mg/dL (60-115)
[2024-03-15 17:31] LABS: Lithium 0.94 mmol/L (0.60-1.20)
[2024-03-15] MEDS: cefTRIAXone sodium 1 GM VIAL IVPUSH (17:52)
[2024-03-15] MEDS: Azithromycin 500 MG in 0.9 % Sodium Chloride 250 ML 125 MG IV (17:52)
[2024-03-15] MEDS: Melatonin 3 MG TABLET 9 MG PO (20:18)
[2024-03-15] MEDS: Lithium Carbonate 300 MG TABLET 150 MG PO (20:18)
[2024-03-15] MEDS: traZODone HCL 25 MG HALFTAB 75 MG PO (20:19)
[2024-03-15] MEDS: LORazepam 1 MG TABLET PO (20:19)
[2024-03-15] MEDS: Tamsulosin HCL 0.4 MG CAPSULE PO (20:19)
[2024-03-15] MEDS: Propranolol HCL 10 MG TABLET 5 MG PO (20:19)
[2024-03-15] MEDS: Sennosides/Docusate Sodium TABLET 1 TAB PO (20:19)
[2024-03-15 20:23] LABS: Glucose, Whole Blood 295 mg/dL (60-115)
[2024-03-15 20:31] LABS: Anion Gap 13 (12-20); Blood Urea Nitrogen 29 mg/dL (9-16); Calcium 8.5 mg/dL (8.4-10.2); Carbon Dioxide 30 mmol/L (22-29); Chloride 93 mmol/L (96-108); Creatinine Clr Calc Pharmacy 114.5; Estimated Glomerular Filt Rate > 60; Glucose Random 287 mg/dL (60-115); Potassium 5.2 mmol/L (3.3-5.1); Sodium 131 mmol/L (135-145)
[2024-03-15 20:34] LABS: VBG Base Excess 5.7 mmol/L; VBG HCO3 33 mmol/L (22-26); VBG pCO2 62 mmHg; VBG pH 7.33 (7.32-7.43); VBG pO2 37 mmHg
[2024-03-15 22:07] LABS: Venous Blood Gas Refer to POC result
[2024-03-16] VITALS (14 sets, daily range): BP systolic 105–146; BP diastolic 52–85; PULSE 56–103; RESP 12–20; TEMP 36.4–37.6; O2SAT 92–100; BMI 33.2
[2024-03-16 05:23] LABS: VBG Base Excess 10.2 mmol/L; VBG HCO3 38 mmol/L (22-26); VBG pCO2 62 mmHg; VBG pH 7.38 (7.32-7.43); VBG pO2 30 mmHg
[2024-03-16 05:32] LABS: Basophils Absolute Auto 0.1 X10*3/uL (0.0-0.2); Basophils Percent Auto 0.3 % (0-2); Eosinophils Percent Auto 0.1 % (0-4); Hemoglobin 13.1 g/dl (14.0-18.0); Imm Gran Abs Auto 0.27 X10*3/uL (0.00-0.03); Imm Gran Pct Auto 1.1 % (0.0-0.4); Lymphocytes Absolute Auto 1.1 X10*3/uL (1.2-4.9); Lymphocytes Percent Auto 4.5 % (20-40); MANUAL DIFF FLAG SCAN; Mean Corpuscular HGB Conc 31.2 g/dl (31.0-36.0); Mean Corpuscular Hemoglobin 29.6 pg (27.0-33.0); Mean Corpuscular Volume 94.8 fL (80.0-98.0); Mean Platelet Volume 10.6 fL (9.4-12.4); Monocytes Percent Auto 3.8 % (2-11); Neutrophils Absolute Auto 22.8 x10*3/uL (2.0-8.3); Neutrophils Percent Auto 90.2 % (45-73); Platelet Count 168 X10*3/uL (160-400); Red Blood Count 4.43 X10*6/uL (4.60-5.80); Red Cell Distribution Width 14.3 % (11.0-16.0); SCAN SMEAR FLAG 1; White Blood Count 25.3 X10*3/uL (4.8-10.8)
[2024-03-16 05:51] LABS: Albumin Level 3.6 g/dL (3.5-5.0); Anion Gap 13 (12-20); Blood Urea Nitrogen 29 mg/dL (9-16); Calcium 8.9 mg/dL (8.4-10.2); Carbon Dioxide 31 mmol/L (22-29); Chloride 94 mmol/L (96-108); Creatinine Clr Calc Pharmacy 97.4; Estimated Glomerular Filt Rate > 60; Glucose Random 153 mg/dL (60-115); Magnesium 2.8 mg/dL (1.6-2.6); Phosphorus 2.5 mg/dL (2.7-4.5); Potassium 5.1 mmol/L (3.3-5.1); SLIDE REVIEW VERIFIED; Sodium 133 mmol/L (135-145)
[2024-03-16 06:32] LABS: Venous Blood Gas Refer to POC result
--- NOTE | 2024-03-16 07:00 | CA_ITS ---
Transthoracic Echocardiogram Patient (Last, First, Middle): Orlando Gilbert, Gender: Male Date of : 1960 Age: 63 Procedure Date: 03/16/2024 Procedure Type: Transthoracic Echocardiogram Location: [facility] [place] Height: 185.42 cm Weight: 113.85 kg BSA: 2.37 m2 Heart Rate: bpm BP: 121 / 52 mmHg Hand Sprayer: ANA LILIA Referring MD: Daniel Blanton MD Symptoms: dyspnea Study Quality: Adequate ECG Rhythm: Sinus Conclusions: - Normal left ventricular size and systolic function. There is mildly increased left ventricular wall thickness. The visually estimated ejection fraction is between 60-65%. - E/E prime ratio is between 8 and 15 consistent with indeterminate filling pressures. - Mildly increased right ventricular cavity size. There is normal right ventricular systolic function. - There is mild dilatation of the sinuses of Valsalva measuring 3.80 cm. Findings Procedure Information Contrast agent, definity, is being given per protocol without apparent complications. Left Ventricle Normal left ventricular size and systolic function. There is mildly increased left ventricular wall thickness. The visually estimated ejection fraction is between 60-65%. There is no evidence of regional wall motion abnormalities. Abnormal diastolic function is noted. Spectral Doppler is indicative of a pseudonormal filling pattern. E/E prime ratio is between 8 and 15 consistent with indeterminate filling pressures. Right Ventricle Mildly increased right ventricular cavity size. There is normal right ventricular systolic function. Atria The left atrium is normal in size. The right atrium is normal in size. Aortic Valve There is a normal trileaflet aortic valve. There is no aortic valve stenosis. There is no aortic valve regurgitation. Mitral Valve The mitral valve appears normal. There is trace mitral valve regurgitation. There is no mitral valve stenosis. Pulmonic Valve The pulmonic valve is likely normal. Tricuspid Valve Normal tricuspid valve structure. There is trace tricuspid valve regurgitation. Indeterminate right atrial pressure. Great Vessels There is mild dilatation of the sinuses of Valsalva measuring 3.80 cm. Venous The inferior vena cava was not well visualized. Pericardium/Pleural There is no evidence of pericardial effusion. Prior Study Comparison No prior study available for comparison. Measurements 2D Linear Measurements IVSd: 1.17 0.6-0.9/0.6-1.0 cm LVIDd: 4.85 3.9-5.3/4.2-5.9 cm LVIDd Index: 2.05 2.4-3.2/2.2-3.1 cm/m2 LVIDs: 2.79 2.0-3.6 cm LVPWd: 1.22 0.7-1.1 cm Ao Root: 3.80 2.1-3.5 cm LA Diam: 3.80 2.7-3.8/3.0-4.0 cm LAIDs Index: 1.60 1.5-2.3 cm/m2 LV Mass: 276.04 67-162/88-224 g LV Mass Index: 116.47 43-95/49-115 g/m2 LVOT Diam: 2.20 3.0+(-)1.3 cm 2D Systolic Function EF 4C: 71.70 >55% EF 2C: 65.30 >55% EF BiP: 68.80 >55% Mitral Valve MV Pk E: 1.00 MV PK A: 0.66 MV Decel Time: 151.00 E/A: 1.50 E'Lateral: 9.57 E'Medial: 5.55 E/E' Med: 18.00 E/E' Lat: 10.40 PHT: 44.00 MVA PHT: 5.00 Decel [place]: 6.63 Aortic Valve AoV Pk Aki: 1.43 AoV Mn Aki: 0.94 AoV VTI: 0.26 AoV Pk Grad: 8.00 Aov Mn Grad: 4.00 TANIKA Cont.VTI: 3.42 LVOT LVOT Pk Aki: 1.02 LVOT Mn Aki: 0.81 LVOT VTI: 0.23 LVOT Pk Grad: 4.00 LVOT Mn Grad: 3.00 LVOT Diam: 2.20 LVOT Area: 3.80 Diastolic Function MV Pk E: 1.00 MV Pk A: 0.66 E/A: 1.50 E'Medial: 5.55 E/E' Med: 18.00 E' Laterial: 9.57 E/E' Lat: 10.40 Right Ventricle TAPSE (mm): 28.00 TVS' Aki: 12.00 Tricuspid Valve TR Pk Aki: 1.59 TR Pk Grad: 10.00 RA Press: 3.00 RVSP: 13.00 Great Vessels Aorta Ao Root-2D: 3.80 2.0-3.7 cm Sinus of Valsalva: 3.80 2.0-3.5 cm Ao Asc: 3.30 2.1-3.4 cm Pulmonary Valve PV Pk Aki: 0.95 Peak PV Grad: 4.00 Updated in Other Vendor System with Status of Final Gabe Sloan MD electronically signed on 03/16/2024 7:39:03 PM with status of Final
[2024-03-16 07:13] LABS: Glucose, Whole Blood 146 mg/dL (60-115)
[2024-03-16] MEDS: 0.9 % Sodium Chloride Flush 3 ML SYRINGE IVFLUSH ×3 (07:15→20:31)
[2024-03-16] MEDS: Albuterol/Iprat 2.5/0.5MG 3 ML AMPUL.NEB INHALE ×3 (08:00→19:47)
[2024-03-16] MEDS: Lithium Carbonate 300 MG TABLET 150 MG PO ×2 (08:04→20:33)
[2024-03-16] MEDS: Insulin Glargine,Hum.rec.anlog 100 UNIT/ML 10 ML VIAL 12 UNIT SUBCUT (08:04)
[2024-03-16] MEDS: Topiramate 25 MG TABLET 50 MG PO ×2 (08:05→20:33)
[2024-03-16] MEDS: Sennosides/Docusate Sodium TABLET 1 TAB PO ×2 (08:05→20:33)
[2024-03-16] MEDS: Propranolol HCL 10 MG TABLET 5 MG PO ×2 (08:05→20:34)
[2024-03-16] MEDS: Aspirin Enteric Coated 81 MG TABLET.DR PO (08:05)
[2024-03-16] MEDS: Lithium Carbonate 300 MG CAPSULE PO ×2 (08:05→20:33)
[2024-03-16] MEDS: LORazepam 1 MG TABLET PO ×2 (08:05→20:33)
[2024-03-16] MEDS: Sodium,Potassium Phosphates POWD.PACK 1 PACKET PO (08:19)
[2024-03-16] MEDS: Enoxaparin Sodium 40 MG/0.4 ML SYRINGE SUBCUT (08:33)
--- NOTE | 2024-03-16 09:24 | P.PNCC_ITS ---
Subjective Subjective Date of Service: 03/16/24 Interval History: 63-year-old gentleman with underlying diabetes mellitus, TBI, seizure disorder, COPD admitted on 03/15/2024 with dyspnea. Patient initially noted to be in respiratory acidosis that improved with application of BiPAP. Patient was titrated to nasal cannula, however he started to retain CO2 again and was to intensive care unit for close monitoring. His respiratory viral panel is negative. CT angio chest showed no evidence of pulmonary emboli, but some pulmonary edema. Patient started on empiric diuresis with significant improvement. No events overnight. Critical Care Time (minutes): 0 Physical Exam 2 Vital Signs: Vital Signs: Last Vital Signs Temp 97.5 F 03/16/24 06:00 Pulse 71 03/16/24 08:05 Resp 18 03/16/24 08:00 BP 121/52 L 03/16/24 08:05 Pulse Ox 100 03/16/24 08:00 O2 Del Method Nasal Cannula 03/16/24 08:00 O2 Flow Rate 1 03/16/24 08:00 BMI result Body Mass Index 33.2 Const: General: no acute distress, alert and awake Eyes: Sclerae: sclerae normal EOM: EOMs intact bilaterally Neck: Neck: Yes no lymphadenopathy, Yes trachea midline and Yes supple Resp: Effort & Inspection: normal respiratory effort and no respiratory distress Auscultation: clear to auscultation bilaterally Cardio: Rate: regular rate Rhythm: regular rhythm Heart sounds: no gallops, no murmurs and no rubs GI: Palpation (GI): Soft to palpation and Other GI palpation findings present ( Nontender) Auscultation: normal bowel sounds Extrem: General: No clubbing, No cyanosis and Yes edema (trace bilateral) Objective Data Labs 03/16/24 05:18 03/16/24 05:18 Labs: Laboratory Results - last 24 hr 03/14/24 03/15/24 03/15/24 20:52 09:38 09:42 WBC 26.4 H RBC 4.51 L Hgb 13.3 L Hct 43.3 MCV 96.0 MCH 29.5 MCHC 30.7 L RDW 14.5 Plt Count 178 MPV 10.6 Immature Gran % (Auto) Neut % (Auto) Lymph % (Auto) [place] % (Auto) Eos % (Auto) Baso % (Auto) Lymph # (Auto) [place] # (Auto) Eos # (Auto) Baso # (Auto) Abs Immat Gran (auto) Absolute Neuts (auto) Absolute Nucleated RBC 0.000 Nucleated RBC % (auto) 0.0 Smear Tech's Comments Hold Purple Top VBG pH 7.26 L VBG pCO2 72 VBG pO2 32 VBG HCO3 33 H VBG O2 Saturation 44.0 VBG Base Excess 3.7 Sodium 133 L Potassium 5.2 H D Chloride 94 L Carbon Dioxide 28 Anion Gap 16 BUN 25 H Creatinine 1.17 Estim Creat Clear Calc 95.9 Estimated GFR > 60 POC Glucose Random Glucose 385 H* Calcium 8.6 Phosphorus Magnesium Albumin Nasal Screen MRSA (PCR) NEGATIVE Nasal S. aureus Screen NEGATIVE Nasal MRSA/S.aureus Interp SEE NOTE [place] 03/15/24 03/15/24 03/15/24 11:08 12:34 16:21 WBC RBC Hgb Hct MCV MCH MCHC RDW Plt Count MPV Immature Gran % (Auto) Neut % (Auto) Lymph % (Auto) [place] % (Auto) Eos % (Auto) Baso % (Auto) Lymph # (Auto) [place] # (Auto) Eos # (Auto) Baso # (Auto) Abs Immat Gran (auto) Absolute Neuts (auto) Absolute Nucleated RBC Nucleated RBC % (auto) Smear Tech's Comments Hold Purple Top VBG pH 7.26 L VBG pCO2 74 VBG pO2 48 VBG HCO3 33 H VBG O2 Saturation 77.0 VBG Base Excess 3.8 Sodium Potassium Chloride Carbon Dioxide Anion Gap BUN Creatinine Estim Creat Clear Calc Estimated GFR POC Glucose 327 H 271 H Random Glucose Calcium Phosphorus Magnesium Albumin Nasal Screen MRSA (PCR) Nasal S. aureus Screen Nasal MRSA/S.aureus Interp [place] 03/15/24 03/15/24 03/15/24 16:58 20:19 20:22 WBC RBC Hgb Hct MCV MCH MCHC RDW Plt Count MPV Immature Gran % (Auto) Neut % (Auto) Lymph % (Auto) [place] % (Auto) Eos % (Auto) Baso % (Auto) Lymph # (Auto) [place] # (Auto) Eos # (Auto) Baso # (Auto) Abs Immat Gran (auto) Absolute Neuts (auto) Absolute Nucleated RBC Nucleated RBC % (auto) Smear Tech's Comments Hold Purple Top SEE NOTE VBG pH 7.33 VBG pCO2 62 VBG pO2 37 VBG HCO3 33 H VBG O2 Saturation 57.0 VBG Base Excess 5.7 Sodium 131 L Potassium 5.2 H Chloride 93 L Carbon Dioxide 30 H Anion Gap 13 BUN 29 H Creatinine 0.98 Estim Creat Clear Calc 114.5 Estimated GFR > 60 POC Glucose 295 H Random Glucose 287 H Calcium 8.5 Phosphorus Magnesium Albumin Nasal Screen MRSA (PCR) Nasal S. aureus Screen Nasal MRSA/S.aureus Interp [place] 0.94 03/16/24 03/16/24 03/16/24 05:12 05:18 07:06 WBC 25.3 H RBC 4.43 L Hgb 13.1 L Hct 42.0 MCV 94.8 MCH 29.6 MCHC 31.2 RDW 14.3 Plt Count 168 MPV 10.6 Immature Gran % (Auto) 1.1 H Neut % (Auto) 90.2 H Lymph % (Auto) 4.5 L [place] % (Auto) 3.8 Eos % (Auto) 0.1 Baso % (Auto) 0.3 Lymph # (Auto) 1.1 L [place] # (Auto) 1.0 Eos # (Auto) 0.0 Baso # (Auto) 0.1 Abs Immat Gran (auto) 0.27 H Absolute Neuts (auto) 22.8 H Absolute Nucleated RBC 0.000 Nucleated RBC % (auto) 0.0 Smear Tech's Comments VERIFIED Hold Purple Top VBG pH 7.38 VBG pCO2 62 VBG pO2 30 VBG HCO3 38 H VBG O2 Saturation 43.0 VBG Base Excess 10.2 Sodium 133 L Potassium 5.1 Chloride 94 L Carbon Dioxide 31 H Anion Gap 13 BUN 29 H Creatinine 1.00 Estim Creat Clear Calc 97.4 Estimated GFR > 60 POC Glucose 146 H Random Glucose 153 H Calcium 8.9 Phosphorus 2.5 L Magnesium 2.8 H Albumin 3.6 Nasal Screen MRSA (PCR) Nasal S. aureus Screen Nasal MRSA/S.aureus Interp [place] Microbiology Microbiology Results: Microbiology 03/14/24 17:45 Blood - Venous Blood Culture - Preliminary No growth after 24 hours. 03/14/24 17:45 Blood - Venous Blood Culture - Preliminary No growth after 24 hours. Progress Note: A&P Assessment and plan (1) Pulmonary edema: Status: Acute (2) Respiratory failure with hypoxia and hypercapnia: Status: Acute (3) COPD (chronic obstructive pulmonary disease): Status: Acute Plan Assessment: 63-year-old gentleman with underlying TBI, seizure disorder, and COPD admitted with acute hypercapnic respiratory failure secondary pulmonary edema. Plan: Neuro: No acute issues. Underlying TBI/seizure disorder, continue lithium and topiramate. Cardiac: No acute issues. Suspicion for underlying undiagnosed congestive heart failure 2D echo is pending. Pulmonary: Acute hypercapnic respiratory failure secondary to pulmonary edema improved with BiPAP, but recurred off BiPAP requiring close monitoring, resolved with diuresis. Underlying COPD. Renal: No acute issues. Endo: No acute issues. Underlying diabetes mellitus, continue Lantus/sliding scale insulin. GI: No acute issues. ID: No acute issues Heme/Onc: No acute issues. Psych: No acute issues. Miscellaneous: No acute issues. Prophylaxis: Lovenox Diet: Diabetic Quality Stroke Does the patient have a stroke diagnosis?: No VTE Prior VTE?: No VTE Risk Level:: Medical - moderate - high VTE Device Contraindication: Treatment Not Indicated VTE Drug Contraindication: N/A - Med Ordered
--- NOTE | 2024-03-16 09:26 | P.CDIM_ITS ---
PROVIDER RESPONSE TEXT: To clarify, the appropriate diagnosis supported by the clinical indicators: Other (explain): likely underlying undiagnosed congestive heart failure QUERY TEXT: PHYSICIAN'S DOCUMENTATION REQUEST Date of Query: 03/16/2024 08:55 AM EST Patient Name: Orlando Gilbert Admit Date: 03/15/2024 Dear Daniel Blanton MD, A review of the medical record indicates additional documentation may be needed. Please review below and update the documentation accordingly. Clinical Indicators: Patient admitted with COPD with acute hypercapnic respiratory failure secondary to pulmonary edema. CT angio chest showed evidence of pulmonary emboli, but some pulmonary edema. Patient titrated to NC however he started to retain CO2 again and was to intensive care unit for clos e monitoring. Based on the above, could you please provide, in the Progress Notes, further specificity regarding th e acuity of the documented pulmonary edema within the written Plan: Acute non-cardiac pulmonary edema Chronic pulmonary edema due to non-cardiac etiology Other specifics to the pulmonary edema Other (explain) Clinically unable to determine (explain) Thank you, Jacqui Mckeon, CCS, CDIS Use of terms such as suspected, likely, concern for, or probable (associated with a specific diagnosi s that is being evaluated, monitored, or treated as if it exists) are acceptable and can be coded in the inpatient se tting, when documented at the time of discharge. Please use your independent medical judgment in providing your response. THIS QUERY IS PART OF THE PERMANENT MEDICAL RECORD
--- NOTE | 2024-03-16 10:38 | PC.NURSE ---
Med-tele transfer ordered - Eliezer removed in ICU - DTV [id number]. Handoff given to Christina Arciniega RN. Transport called.
[2024-03-16 11:32] LABS: Glucose, Whole Blood 170 mg/dL (60-115)
--- NOTE | 2024-03-16 12:52 | MHC.CM.PN ---
JOSE received a call from Pt. sister, Tran Shanks, she is his DPOA for health care. She said that pt. has a DNR from a long time ago, but he recently said he wants to be a full code. She wants to honor his wish. JOSE rec. she come in to complete a MOLST with here, she lives in [place], [place] and said she will try to come in. Pt. lives at [facility], JOSE messaged them to request updated MOLST be faxed here, sister said they may have it. notified of POA's wishes.
[2024-03-16 16:14] LABS: Glucose, Whole Blood 170 mg/dL (60-115)
[2024-03-16] MEDS: Azithromycin 500 MG in 0.9 % Sodium Chloride 250 ML 125 MG IV ×2 (18:18→22:13)
[2024-03-16] MEDS: Insulin Lispro 100 UNIT/ML 3 ML VIAL SUBCUT ×2 (18:19→21:38)
[2024-03-16] MEDS: Melatonin 3 MG TABLET 9 MG PO (20:32)
[2024-03-16] MEDS: traZODone HCL 25 MG HALFTAB 75 MG PO (20:33)
[2024-03-16] MEDS: Tamsulosin HCL 0.4 MG CAPSULE PO (20:33)
[2024-03-16 21:23] LABS: Glucose, Whole Blood 211 mg/dL (60-115)
--- NOTE | 2024-03-16 21:55 | PC.NURSE ---
During report this RN told by previous RN pt's ABX was running. When this RN went into assess pt, ABX was mixed, spiked, and hung but not running. Called pharmacy to re-time ABX and administer. Pt has been verbally abusive to staff. This RN has spoken w/ pt about not swearing at staff and to please be polite. Pt continues to swear at staff.
--- NOTE | 2024-03-17 03:30 | PC.NURSE ---
Pt noncompliant w/IV ABX. Pt continually bending arm so IV would stop and pump would beep. Then he would complain about the beeping. It was explained to the pt multiple times by different staff members to do his best to leave his arm straight so the ABX could infuse. Pt continued to bend his arm and complain. Pt then threatening to remove IV and leave and I'll see you all in court . Eventually this RN stopped the infusion d/t the pt repeatedly and rapidly bending his arm. Pt also continues to verbally berate staff, security called bedside for help in de-escalating pt's aggressiveness.
[2024-03-17 03:59] VITALS: BP 133/63; PULSE 88; TEMP 36.3; O2SAT 98
[2024-03-17 06:52] VITALS: BP 130/62; PULSE 88; RESP 20; TEMP 36.5; O2SAT 98
[2024-03-17 06:55] LABS: Glucose, Whole Blood 154 mg/dL (60-115)
[2024-03-17 07:33] LABS: Basophils Absolute Auto 0.1 X10*3/uL (0.0-0.2); Basophils Percent Auto 0.2 % (0-2); Eosinophils Absolute Auto 0.8 X10*3/uL (0.0-0.4); Eosinophils Percent Auto 2.5 % (0-4); Hematocrit 48.1 % (42.0-52.0); Hemoglobin 14.8 g/dl (14.0-18.0); Imm Gran Abs Auto 0.67 X10*3/uL (0.00-0.03); Imm Gran Pct Auto 2.2 % (0.0-0.4); Lymphocytes Absolute Auto 1.2 X10*3/uL (1.2-4.9); Lymphocytes Percent Auto 3.8 % (20-40); MANUAL DIFF FLAG SCAN; Mean Corpuscular HGB Conc 30.8 g/dl (31.0-36.0); Mean Corpuscular Hemoglobin 29.4 pg (27.0-33.0); Mean Corpuscular Volume 95.6 fL (80.0-98.0); Mean Platelet Volume 10.3 fL (9.4-12.4); Monocytes Absolute Auto 1.2 X10*3/uL (0.1-1.2); Monocytes Percent Auto 4.1 % (2-11); Neutrophils Absolute Auto 26.2 x10*3/uL (2.0-8.3); Neutrophils Percent Auto 87.2 % (45-73); Platelet Count 193 X10*3/uL (160-400); Red Blood Count 5.03 X10*6/uL (4.60-5.80); Red Cell Distribution Width 14.6 % (11.0-16.0); SCAN SMEAR FLAG 1
[2024-03-17 07:35] LABS: VBG Base Excess 7.9 mmol/L; VBG HCO3 39 mmol/L (22-26); VBG pCO2 90 mmHg; VBG pH 7.25 (7.32-7.43); VBG pO2 58 mmHg
[2024-03-17 07:39] LABS: Venous Blood Gas Refer to POC result
[2024-03-17 07:52] LABS: SLIDE REVIEW VERIFIED
[2024-03-17 07:55] LABS: Albumin Level 3.5 g/dL (3.5-5.0); Anion Gap 12 (12-20); Blood Urea Nitrogen 29 mg/dL (9-16); Calcium 8.6 mg/dL (8.4-10.2); Carbon Dioxide 33 mmol/L (22-29); Chloride 91 mmol/L (96-108); Creatinine Clr Calc Pharmacy 86.9; Estimated Glomerular Filt Rate > 60; Glucose Random 185 mg/dL (60-115); Magnesium 2.6 mg/dL (1.6-2.6); Phosphorus 3.1 mg/dL (2.7-4.5); Potassium 4.5 mmol/L (3.3-5.1); Sodium 131 mmol/L (135-145)
[2024-03-17] MEDS: Albuterol/Iprat 2.5/0.5MG 3 ML AMPUL.NEB INHALE (07:58)
[2024-03-17 08:00] VITALS: PULSE 77; RESP 20; O2SAT 94
[2024-03-17] MEDS: LORazepam 1 MG TABLET PO ×2 (10:05→19:54)
[2024-03-17] MEDS: Piperacillin Sodium/Tazobactam 4.5 GM in 0.9 % Sodium Chloride 100 ML IV ×3 (10:23→19:49)
[2024-03-17] MEDS: methylPREDNISolone Sod Succ 125 MG/2 ML VIAL IVPUSH (10:24)
[2024-03-17] MEDS: Lithium Carbonate 300 MG TABLET 150 MG PO ×2 (10:25→19:58)
[2024-03-17] MEDS: Topiramate 25 MG TABLET 50 MG PO ×2 (10:26→19:54)
[2024-03-17] MEDS: 0.9 % Sodium Chloride Flush 3 ML SYRINGE IVFLUSH ×3 (10:26→20:02)
[2024-03-17] MEDS: Sennosides/Docusate Sodium TABLET 1 TAB PO ×2 (10:26→19:58)
[2024-03-17] MEDS: Propranolol HCL 10 MG TABLET 5 MG PO ×2 (10:26→19:51)
[2024-03-17] MEDS: Lithium Carbonate 300 MG CAPSULE PO ×2 (10:27→19:55)
[2024-03-17] MEDS: Aspirin Enteric Coated 81 MG TABLET.DR PO (10:27)
[2024-03-17] MEDS: diphenhydrAMINE HCL 50 MG/ML VIAL 25 MG IVPUSH (10:27)
[2024-03-17] MEDS: Insulin Glargine,Hum.rec.anlog 100 UNIT/ML 10 ML VIAL 12 UNIT SUBCUT (10:29)
[2024-03-17] MEDS: Insulin Lispro 100 UNIT/ML 3 ML VIAL SUBCUT ×3 (10:29→19:50)
[2024-03-17 10:47] VITALS: BP 130/70; PULSE 81; RESP 20; TEMP 36.7; O2SAT 98
[2024-03-17 10:55] LABS: Glucose, Whole Blood 182 mg/dL (60-115)
--- NOTE | 2024-03-17 12:17 | P.PNIM_ITS ---
Subjective Subjective Date of Service: 03/17/24 Interval History: Showed a vegetation overnight. Noted to have a diffuse erythematous reaction over all his body this a.m.. No respiratory distress Physical Exam 2 Vital Signs: Vital Signs: Last Vital Signs Temp 98.0 F 03/17/24 10:47 Pulse 81 03/17/24 10:47 Resp 20 03/17/24 10:47 BP 130/70 03/17/24 10:47 Pulse Ox 98 03/17/24 10:47 O2 Del Method Nasal Cannula 03/17/24 10:47 O2 Flow Rate 4 03/17/24 10:47 BMI result Body Mass Index 33.2 Objective Data Active Medications Albuterol/Ipratropium (Albuterol/Iprat 2.5/0.5mg 3 Ml Ampul.Neb) 3 ml INHALE RQ6H WHILE AWAKE [facility] Last Admin: 03/17/24 07:58 Dose: 3 ml Documented By: KENZIE Aspirin (Aspirin Enteric Coated 81 Mg Tablet.Dr) 81 mg PO DAILY [facility] Last Admin: 03/17/24 10:27 Dose: 81 mg Documented By: BERNARDO Enoxaparin Sodium (Enoxaparin Sodium 40 Mg/0.4 Ml Syringe) 40 mg SUBCUT Q24H [facility] Last Admin: 03/17/24 11:09 Dose: Not Given Documented By: BERNARDO Non-Admin Reason: Patient Refused Piperacillin Sod/Tazobactam (Sod 4.5 gm/ Sodium Chloride) 100 mls @ 200 mls/hr IV Q6H [facility] Last Admin: 03/17/24 10:23 Dose: 200 mls/hr Documented By: BERNARDO Insulin Glargine (Insulin Glargine,Hum.Rec.Anlog 100 Unit/Ml 10 Ml Vial) 12 unit SUBCUT DAILY [facility] Last Admin: 03/17/24 10:29 Dose: 12 unit Documented By: BERNARDO Insulin Human Lispro (Insulin Lispro 100 Unit/Ml 3 Ml Vial) 0 unit SUBCUT QIDACHS [facility]; Protocol Last Admin: 03/17/24 10:29 Dose: 2 unit Documented By: BERNARDO [place] Carbonate ([place] Carbonate 300 Mg Capsule) 300 mg PO BID [facility] Last Admin: 03/17/24 10:27 Dose: 300 mg Documented By: BERNARDO [place] Carbonate ([place] Carbonate 300 Mg Tablet) 150 mg PO BID [facility] Last Admin: 03/17/24 10:25 Dose: 150 mg Documented By: BERNARDO Lorazepam (Lorazepam 2 Mg/Ml Vial) 2 mg IVPUSH ONCE PRN PRN Reason: Seizures Lorazepam (Lorazepam 2 Mg/Ml Vial) 2 mg IVPUSH Q4H PRN PRN Reason: anxiety/restlessness Last Admin: 03/15/24 11:08 Dose: 2 mg Documented By: CARMELITA Lorazepam (Lorazepam 1 Mg Tablet) 1 mg PO BID [facility] Last Admin: 03/17/24 10:05 Dose: 1 mg Documented By: BERNARDO Melatonin (Melatonin 3 Mg Tablet) 9 mg PO BEDTIME [facility] Last Admin: 03/16/24 20:32 Dose: 9 mg Documented By: MARANDA Ondansetron HCl (Ondansetron Hcl 4 Mg/2 Ml Vial) 4 mg IVPUSH Q8H PRN PRN Reason: Nausea and Vomiting Pharmacy Consult (Consult Rx Vancomycin Dosing) 1 each MISCELLANE DAILY PRN PRN Reason: Consult order Propranolol HCl (Propranolol Hcl 10 Mg Tablet) 5 mg PO BID [facility]; Protocol Last Admin: 03/17/24 10:26 Dose: 5 mg Documented By: BERNARDO Comments: Senna/Docusate Sodium (Sennosides/Docusate Sodium Tablet) 1 tab PO BID [facility] Last Admin: 03/17/24 10:26 Dose: 1 tab Documented By: BERNARDO Sodium Chloride (0.9 % Sodium Chloride Flush 3 Ml Syringe) 3 ml IVFLUSH [facility] Last Admin: 03/17/24 10:26 Dose: 3 ml Documented By: BERNARDO Tamsulosin HCl (Tamsulosin Hcl 0.4 Mg Capsule) 0.4 mg PO BEDTIME [facility] Last Admin: 03/16/24 20:33 Dose: 0.4 mg Documented By: MARANDA Topiramate (Topiramate 25 Mg Tablet) 50 mg PO BID [facility] Last Admin: 03/17/24 10:26 Dose: 50 mg Documented By: BERNARDO Trazodone HCl (Trazodone Hcl 25 Mg Halftab) 75 mg PO BEDTIME [facility] Last Admin: 03/16/24 20:33 Dose: 75 mg Documented By: MARANDA Labs 03/17/24 07:19 03/17/24 07:19 Labs: Laboratory Results - last 24 hr 03/16/24 03/16/24 03/17/24 16:09 20:47 06:51 MCV MCH MCHC RDW Plt Count MPV Immature Gran % (Auto) Neut % (Auto) Lymph % (Auto) [place] % (Auto) Eos % (Auto) Baso % (Auto) Lymph # (Auto) [place] # (Auto) Eos # (Auto) Baso # (Auto) Abs Immat Gran (auto) Absolute Neuts (auto) Absolute Nucleated RBC Nucleated RBC % (auto) Smear Tech's Comments VBG pH VBG pCO2 VBG pO2 VBG HCO3 VBG O2 Saturation VBG Base Excess Anion Gap Estim Creat Clear Calc Estimated GFR POC Glucose 170 H 211 H 154 H Random Glucose Calcium Phosphorus Magnesium Albumin 03/17/24 03/17/24 03/17/24 07:19 07:30 10:48 MCV 95.6 MCH 29.4 MCHC 30.8 L RDW 14.6 Plt Count 193 MPV 10.3 Immature Gran % (Auto) 2.2 H Neut % (Auto) 87.2 H Lymph % (Auto) 3.8 L [place] % (Auto) 4.1 Eos % (Auto) 2.5 Baso % (Auto) 0.2 Lymph # (Auto) 1.2 [place] # (Auto) 1.2 Eos # (Auto) 0.8 H Baso # (Auto) 0.1 Abs Immat Gran (auto) 0.67 H Absolute Neuts (auto) 26.2 H Absolute Nucleated RBC 0.000 Nucleated RBC % (auto) 0.0 Smear Tech's Comments VERIFIED VBG pH 7.25 L VBG pCO2 90 VBG pO2 58 VBG HCO3 39 H VBG O2 Saturation 84.0 VBG Base Excess 7.9 Anion Gap 12 Estim Creat Clear Calc 86.9 Estimated GFR > 60 POC Glucose 182 H Random Glucose 185 H Calcium 8.6 Phosphorus 3.1 Magnesium 2.6 Albumin 3.5 Microbiology Microbiology Results: Microbiology 03/14/24 17:45 Blood Culture - Preliminary Blood - Venous No growth after 48 hours. 03/14/24 17:45 Blood Culture - Preliminary Blood - Venous No growth after 48 hours. Assessment and Plan (1) Pneumonia: Status: Acute (2) Acute respiratory failure with hypercapnia: Status: Acute Plan A 63 years old male with PMH of TBI, history of schizophrenia, seizure disorder, COPD not on O2 presented from long-term with sudden onset SOB, dyspnea and hypoxia. DNR\DNI per HCP (his sister). He has COPD exacerbation with hypoxia and hypercarbia. Transferred to ICU briefly for BiPAP then transferred out to general medical floor. Sister has revoked DNR DNI in favor of full code [facility] stand at [facility] 1.Acute hypoxic\hypercapnic respiratory failure d/t COPD exacerbation complicated by acute metabolic encephalopathy, and resp acidodis -encourage BiPAP use -avoid Haldol for agitation 2. Left upper lobe pneumonia -experienced a generalized red rash overall torso and arms and legs -question allergic reaction to azithromycin; given Benadryl and Solu-Medrol -given white count, broaden antibiotic coverage to vanco and Zosyn (1) -ID consult 3.DMII requiring insulin -acceptable control on outpatient therapies -lispro correctional scale -adjust as indicated 4.Hx seizure post TBI, schizophrenia, mood d/o -topomax, trazadone, ativan Full code Lovenox Patient will require ongoing hospitalization for ID consult and continue antibiotics to pneumonia along with specialty consultation Quality Stroke Does the patient have a stroke diagnosis?: No VTE Prior VTE?: No VTE Risk Level:: Medical - moderate - high VTE Device Contraindication: Treatment Not Indicated VTE Drug Contraindication: N/A - Med Ordered
--- NOTE | 2024-03-17 13:26 | PC.NURSE ---
unable to administer vanko at scheduled time due to lack of iv access md dela cruz
--- NOTE | 2024-03-17 13:44 | MHC.CM.PN ---
Per rounds, pt in not ready to DC. He will DC to [facility] [place] where he lives LTC, when DC. CM to follow for DC needs.
[2024-03-17 15:34] VITALS: BP 121/68; PULSE 76; RESP 23; TEMP 36.1; O2SAT 98
[2024-03-17 15:37] LABS: Glucose, Whole Blood 142 mg/dL (60-115)
--- NOTE | 2024-03-17 16:41 | P.CNID_ITS ---
History of Present Illness Data of Consult Service Date: 03/17/24 Requesting physician: Hilario Blank Primary Care Provider: Hilario Blank DO HPI Reason for consult: leukocytosis He presents on 03/14 with shortness of breath. He did receive 60 mg solumedrol in ER. He has [place] pneumonia with some consolidation. He has COPD,DM with TBI and schizophrenia. His WBC count was 21.8 and now 30,000. He has blood cultures / negative x2 x 48 hours. He has no lymphadenopathy or cavities reported in lung. Review of Systems 2 Review of Systems: Yes Unobtainable due to mental condition COUNTS INCLUDE 234 BEDS AT THE [facility] Past Medical History Medical History (Updated 03/17/24 @ 16:45 by Bee Garcia MD) Leukocytosis COPD (chronic obstructive pulmonary disease) TBI (traumatic brain injury) Family History Family history: reviewed and not pertinent Social History Social History Household Members: None Housing: Assisted Living Facility Do you presently have visiting nurse or other home services: No ([facility]ident) Patient Tobacco Use Status: Current everyday Tobacco user Tobacco use type: Cigarette Cigarettes Per Day: 8 e-Cigarette/Vaping Use: Never Used Second Hand Smoke Exposure: No Advance Directives Date on File: 03/15/24 Meds Allergies Allergy/AdvReac Type Severity Reaction Status Date / Time No Known Allergies Allergy Verified 03/14/24 17:49 Active Medications: Current Medications Albuterol/Ipratropium (Albuterol/Iprat 2.5/0.5mg 3 Ml Ampul.Neb) 3 ml INHALE RQ6H WHILE AWAKE [facility] Last Admin: 03/17/24 14:59 Dose: Not Given Aspirin (Aspirin Enteric Coated 81 Mg Tablet.) 81 mg PO DAILY [facility] Last Admin: 03/17/24 10:27 Dose: 81 mg Enoxaparin Sodium (Enoxaparin Sodium 40 Mg/0.4 Ml Syringe) 40 mg SUBCUT Q24H [facility] Last Admin: 03/17/24 11:09 Dose: Not Given Piperacillin Sod/Tazobactam (Sod 4.5 gm/ Sodium Chloride) 100 mls @ 200 mls/hr IV Q6H [facility] Last Infusion: 03/17/24 13:17 Dose: Infused Insulin Glargine (Insulin Glargine,Hum.Rec.Anlog 100 Unit/Ml 10 Ml Vial) 12 unit SUBCUT DAILY [facility] Last Admin: 03/17/24 10:29 Dose: 12 unit Insulin Human Lispro (Insulin Lispro 100 Unit/Ml 3 Ml Vial) 0 unit SUBCUT QIDACHS [facility]; Protocol Last Admin: 03/17/24 16:31 Dose: Not Given [place] Carbonate ([place] Carbonate 300 Mg Capsule) 300 mg PO BID [facility] Last Admin: 03/17/24 10:27 Dose: 300 mg [place] Carbonate ([place] Carbonate 300 Mg Tablet) 150 mg PO BID [facility] Last Admin: 03/17/24 10:25 Dose: 150 mg Lorazepam (Lorazepam 2 Mg/Ml Vial) 2 mg IVPUSH ONCE PRN PRN Reason: Seizures Lorazepam (Lorazepam 2 Mg/Ml Vial) 2 mg IVPUSH Q4H PRN PRN Reason: anxiety/restlessness Last Admin: 03/15/24 11:08 Dose: 2 mg Lorazepam (Lorazepam 1 Mg Tablet) 1 mg PO BID [facility] Last Admin: 03/17/24 10:05 Dose: 1 mg Melatonin (Melatonin 3 Mg Tablet) 9 mg PO BEDTIME [facility] Last Admin: 03/16/24 20:32 Dose: 9 mg Ondansetron HCl (Ondansetron Hcl 4 Mg/2 Ml Vial) 4 mg IVPUSH Q8H PRN PRN Reason: Nausea and Vomiting Propranolol HCl (Propranolol Hcl 10 Mg Tablet) 5 mg PO BID [facility]; Protocol Last Admin: 03/17/24 10:26 Dose: 5 mg Senna/Docusate Sodium (Sennosides/Docusate Sodium Tablet) 1 tab PO BID [facility] Last Admin: 03/17/24 10:26 Dose: 1 tab Sodium Chloride (0.9 % Sodium Chloride Flush 3 Ml Syringe) 3 ml IVFLUSH QSHIFT [facility] Last Admin: 03/17/24 10:26 Dose: 3 ml Tamsulosin HCl (Tamsulosin Hcl 0.4 Mg Capsule) 0.4 mg PO BEDTIME [facility] Last Admin: 03/16/24 20:33 Dose: 0.4 mg Topiramate (Topiramate 25 Mg Tablet) 50 mg PO BID [facility] Last Admin: 03/17/24 10:26 Dose: 50 mg Trazodone HCl (Trazodone Hcl 25 Mg Halftab) 75 mg PO BEDTIME [facility] Last Admin: 03/16/24 20:33 Dose: 75 mg Home Medications ?Medication ?Instructions ?Recorded ?Confirmed ?Last Taken ?Type acetaminophen 325 mg tablet 650 mg PO Q6H PRN Fever Or Pain 03/15/24 03/15/24 Unknown History albuterol sulfate 90 mcg/actuation 2 puff inhalation Q6H PRN 03/15/24 03/15/24 Unknown History aerosol inhaler Bronchospasm aspirin 81 mg tablet,delayed 81 mg PO DAILY 03/15/24 03/15/24 Unknown History release atorvastatin 10 mg tablet 10 mg PO BEDTIME 03/15/24 03/15/24 Unknown History bisacodyl 10 mg rectal suppository 10 mg MS DAILY PRN constipation if 03/15/24 03/15/24 Unknown History senna ineffective fexofenadine 180 mg tablet 180 mg PO DAILY 03/15/24 03/15/24 Unknown History fluticasone furoate 100 1 inh inhalation DAILY 03/15/24 03/15/24 Unknown History mcg-vilanterol 25 mcg/dose inhalation powder (Breo Ellipta) guaifenesin 200 mg/5 mL oral liquid 400 mg PO Q4H PRN Congestion 03/15/24 03/15/24 Unknown History ibuprofen 600 mg tablet 600 mg PO Q8H PRN Pain 03/15/24 03/15/24 Unknown History insulin NPH isoph U-100 human 100 12 unit subcut BEDTIME 03/15/24 03/15/24 Unknown History unit/mL subcutaneous suspension (Humulin N NPH U-100 Insulin (isophane susp)) insulin NPH isoph U-100 human 100 18 unit subcut DAILY 03/15/24 03/15/24 Unknown History unit/mL subcutaneous suspension (Humulin N NPH U-100 Insulin (isophane susp)) lithium carbonate 150 mg capsule 150 mg PO BID 03/15/24 03/15/24 Unknown History lithium carbonate 300 mg capsule 300 mg PO BID 03/15/24 03/15/24 Unknown History lorazepam 1 mg tablet 1 mg PO BID 03/15/24 03/15/24 Unknown History melatonin 3 mg tablet 9 mg PO BEDTIME 03/15/24 03/15/24 Unknown History metformin 500 mg tablet 500 mg PO BID 03/15/24 03/15/24 Unknown History ondansetron HCl 8 mg tablet 8 mg PO Q6H PRN nausea/vomiting 03/15/24 03/15/24 Unknown History peg [id number] 1 2 drp ophthalmic (eye) Q8H PRN 03/15/24 03/15/24 Unknown History %-0.2 %-0.2 % eye drops itchy eyes (Artificial Tears ([id number])) propranolol 10 mg tablet 5 mg PO BID 03/15/24 03/15/24 Unknown History sennosides 8.6 mg-docusate sodium 1 tab-cap PO BID 03/15/24 03/15/24 Unknown History 50 mg tablet (Senna with Docusate Sodium) simethicone 80 mg tablet 80 mg PO Q6H PRN 03/15/24 03/15/24 Unknown History flatulence/bloating sodium phosphates 19 gram-7 118 ml MS DAILY PRN constipation 03/15/24 03/15/24 Unknown History gram/118 mL enema (Fleet Enema) if bisacodyl supp ineffective tamsulosin 0.4 mg capsule 0.4 mg PO BEDTIME 03/15/24 03/15/24 Unknown History tiotropium bromide 2.5 2 puff inhalation DAILY 03/15/24 03/15/24 Unknown History mcg/actuation mist for inhalation (Spiriva Respimat) topiramate 50 mg tablet 50 mg PO BID 03/15/24 03/15/24 Unknown History trazodone 50 mg tablet 75 mg PO BEDTIME 03/15/24 03/15/24 Unknown History Physical Exam 2 Vital Signs: Vital Signs: Last Vital Signs Temp 96.9 F 03/17/24 15:34 Pulse 76 03/17/24 15:34 Resp 23 H 03/17/24 15:34 BP 121/68 03/17/24 15:34 Pulse Ox 98 03/17/24 15:34 O2 Del Method Room Air 03/17/24 15:34 O2 Flow Rate 4 03/17/24 10:47 BMI result Body Mass Index 33.2 Const: General: cooperative HEENT: Head: Yes normal to inspection Face and sinus: Yes normal facial exam Mouth: Normal oral and palatal mucosa present Teeth and gingiva: d entition normal Eyes: General: appearance normal, both eyes and all related structures P upils: Equal, round and reactive pupils present Resp: Other: decreased breath sounds bases Cardio: Rate: regular rate Rhythm: regular rhythm GI: Palpation (GI): Soft to palpation and nontender : General: Yes no CVA tenderness Back/Spine/Pelvis: Back: no CVA tenderness Skin: General skin exam: no rashes or lesions noted Neuro: General: moves all extremities Cranial nerves: Yes Equal, round and reactive pupils present Extrem: General: Yes normal to inspection Psych: Appearance: grossly normal Results Labs 03/17/24 07:19 03/17/24 07:19 Labs: Short CBC 03/17/24 Range/Units 07:19 WBC 30.0 H* (4.8-10.8) X10*3/uL Hgb 14.8 (14.0-18.0) g/dl Hct 48.1 (42.0-52.0) % Plt Count 193 (160-400) X10*3/uL BMP 03/17/24 07:19 Sodium 131 L Potassium 4.5 Chloride 91 L Carbon Dioxide 33 H BUN 29 H Creatinine 1.12 Calcium 8.6 Liver Function 03/17/24 Range/Units 07:19 Albumin 3.5 (3.5-5.0) g/dL Microbiology Microbiology Results: Microbiology 03/14/24 17:45 Blood - Venous Blood Culture - Preliminary No growth after 48 hours. 03/14/24 17:45 Blood - Venous Blood Culture - Preliminary No growth after 48 hours. Assessment and Plan (1) Pulmonary edema: Status: Acute (2) COPD (chronic obstructive pulmonary disease): Status: Acute (3) Leukocytosis: Status: Acute Plan He has leukocytosis likely due to pneumonia and persists into leukemoid response after steroids. THere is no ongoing sepsis and no PE or bacteremia seen. He has nonobstructive hydronephrosis. He is on piperacillin/tazobactam. There is no HIV risk known. Would consider HIV test. He has oxygen saturation in mid 90s on 2l Would change to po Augmentin and Doxycycline for seven days outpatient as long as remains off oxygen.
[2024-03-17 19:35] VITALS: BP 146/70; PULSE 97; RESP 23; TEMP 35.8; O2SAT 95
[2024-03-17] MEDS: Tamsulosin HCL 0.4 MG CAPSULE PO (19:51)
[2024-03-17 19:52] LABS: Glucose, Whole Blood 223 mg/dL (60-115)
[2024-03-17] MEDS: traZODone HCL 25 MG HALFTAB 75 MG PO (19:56)
[2024-03-17] MEDS: Melatonin 3 MG TABLET 9 MG PO (19:58)
[2024-03-18] VITALS (14 sets, daily range): BP systolic 120–180; BP diastolic 58–115; PULSE 77–98; RESP 18–22; TEMP 36.1–36.8; O2SAT 57–98
[2024-03-18] MEDS: Piperacillin Sodium/Tazobactam 4.5 GM in 0.9 % Sodium Chloride 100 ML IV ×2 (03:00→09:23)
[2024-03-18 06:59] LABS: Glucose, Whole Blood 172 mg/dL (60-115)
[2024-03-18 07:54] LABS: Hematocrit 46.6 % (42.0-52.0); Hemoglobin 14.2 g/dl (14.0-18.0); Mean Corpuscular HGB Conc 30.5 g/dl (31.0-36.0); Mean Corpuscular Hemoglobin 29.2 pg (27.0-33.0); Mean Corpuscular Volume 95.7 fL (80.0-98.0); Mean Platelet Volume 10.2 fL (9.4-12.4); Platelet Count 198 X10*3/uL (160-400); Red Blood Count 4.87 X10*6/uL (4.60-5.80); Red Cell Distribution Width 14.1 % (11.0-16.0); White Blood Count 25.3 X10*3/uL (4.8-10.8)
[2024-03-18 08:22] LABS: SLIDE REVIEW MANUAL DIFF
[2024-03-18 08:25] LABS: Band Neutrophils Percent 3 % (3-5); Lymphocytes Percent Manual 4 % (20-40); Neutrophils Absolute Manual 24.3 X10*3/uL (2.0-8.3); Neutrophils Percent Manual 93 % (45-73); Platelet Estimate NORMAL (NORMAL); Platelet Morphology Comment NORMAL; RBC Morphology NORMAL
[2024-03-18] MEDS: LORazepam 1 MG TABLET PO (09:20)
[2024-03-18] MEDS: Aspirin Enteric Coated 81 MG TABLET.DR PO (09:20)
[2024-03-18] MEDS: Topiramate 25 MG TABLET 50 MG PO (09:20)
[2024-03-18] MEDS: Sennosides/Docusate Sodium TABLET 1 TAB PO (09:20)
[2024-03-18] MEDS: Propranolol HCL 10 MG TABLET 5 MG PO (09:21)
[2024-03-18] MEDS: Lithium Carbonate 300 MG TABLET 150 MG PO (09:21)
[2024-03-18] MEDS: Lithium Carbonate 300 MG CAPSULE PO (09:21)
[2024-03-18] MEDS: 0.9 % Sodium Chloride Flush 3 ML SYRINGE IVFLUSH ×2 (09:22→17:02)
[2024-03-18] MEDS: Insulin Glargine,Hum.rec.anlog 100 UNIT/ML 10 ML VIAL 12 UNIT SUBCUT (09:22)
[2024-03-18] MEDS: Insulin Lispro 100 UNIT/ML 3 ML VIAL SUBCUT ×3 (09:22→22:52)
[2024-03-18] MEDS: Enoxaparin Sodium 40 MG/0.4 ML SYRINGE SUBCUT (09:35)
[2024-03-18 10:53] LABS: Glucose, Whole Blood 170 mg/dL (60-115)
[2024-03-18 14:24] LABS: VBG Base Excess 15.5 mmol/L; VBG HCO3 46 mmol/L (22-26); VBG pCO2 87 mmHg; VBG pH 7.33 (7.32-7.43); VBG pO2 44 mmHg
[2024-03-18 14:24] LABS: Venous Blood Gas Refer to POC result
[2024-03-18 14:35] LABS: Anion Gap 12 (12-20); Blood Urea Nitrogen 31 mg/dL (9-16); Calcium 9.2 mg/dL (8.4-10.2); Carbon Dioxide 38 mmol/L (22-29); Chloride 96 mmol/L (96-108); Creatinine Clr Calc Pharmacy 95.5; Estimated Glomerular Filt Rate > 60; Glucose Random 136 mg/dL (60-115); Potassium 4.6 mmol/L (3.3-5.1); Sodium 141 mmol/L (135-145)
[2024-03-18] MEDS: Doxycycline Hyclate 100 MG in 0.9 % Sodium Chloride 250 ML 166.67 MG IV (14:41)
--- NOTE | 2024-03-18 14:42 | HO.PM.IMPN ---
Subjective Subjective Date of Service: 03/18/24 Interval History: generalized redness no respiratory distress no fever trying to refuse Physical Exam Vital Signs: Vital Signs: Last Vital Signs Temp 98.0 F 03/18/24 11:05 Pulse 77 03/18/24 11:05 Resp 22 H 03/18/24 11:05 BP 133/58 L 03/18/24 11:05 Pulse Ox 93 03/18/24 11:05 O2 Del Method Nasal Cannula 03/18/24 11:05 O2 Flow Rate 4 03/18/24 11:05 BMI result Body Mass Index 33.2 Gen: in no acute distress HEENT: sclera anicteric, moist mucus membranes Neck: supple Lungs: diminished Heart: regular rate and rhythm, no murmurs Abd: soft, non-tender, non-distended Ext: no edema Skin: warm/well-perfused Neuro: alert and oriented to self + place, moving all extremities Psych: appropriate affect Objective Data Active Medications Albuterol/Ipratropium (Albuterol/Iprat 2.5/0.5mg 3 Ml Ampul.Neb) 3 ml INHALE RQ6H WHILE AWAKE [facility] Last Admin: 03/18/24 11:12 Dose: Not Given Documented By: KENZIE Non-Admin Reason: Patient Asleep Aspirin (Aspirin Enteric Coated 81 Mg Tablet.) 81 mg PO DAILY [facility] Last Admin: 03/18/24 09:20 Dose: 81 mg Documented By: RETA Enoxaparin Sodium (Enoxaparin Sodium 40 Mg/0.4 Ml Syringe) 40 mg SUBCUT Q24H [facility] Last Admin: 03/18/24 09:35 Dose: 40 mg Documented By: RETA Piperacillin Sod/Tazobactam (Sod 4.5 gm/ Sodium Chloride) 100 mls @ 200 mls/hr IV Q6H [facility] Last Infusion: 03/18/24 10:37 Dose: Infused Documented By: RETA Doxycycline Hyclate 100 mg/ (Sodium Chloride) 250 mls @ 166.67 mls/hr IV Q12H [facility] Insulin Glargine (Insulin Glargine,Hum.Rec.Anlog 100 Unit/Ml 10 Ml Vial) 12 unit SUBCUT DAILY [facility] Last Admin: 03/18/24 09:22 Dose: 12 unit Documented By: RETA Insulin Human Lispro (Insulin Lispro 100 Unit/Ml 3 Ml Vial) 0 unit SUBCUT QIDACHS [facility]; Protocol Last Admin: 03/18/24 12:15 Dose: 2 unit Documented By: RETA [place] Carbonate ([place] Carbonate 300 Mg Capsule) 300 mg PO BID [facility] Last Admin: 03/18/24 09:21 Dose: 300 mg Documented By: RETA [place] Carbonate ([place] Carbonate 300 Mg Tablet) 150 mg PO BID [facility] Last Admin: 03/18/24 09:21 Dose: 150 mg Documented By: RETA Lorazepam (Lorazepam 2 Mg/Ml Vial) 2 mg IVPUSH ONCE PRN PRN Reason: Seizures Lorazepam (Lorazepam 2 Mg/Ml Vial) 2 mg IVPUSH Q4H PRN PRN Reason: anxiety/restlessness Last Admin: 03/15/24 11:08 Dose: 2 mg Documented By: CARMELITA Lorazepam (Lorazepam 1 Mg Tablet) 1 mg PO BID [facility] Last Admin: 03/18/24 09:20 Dose: 1 mg Documented By: RETA Melatonin (Melatonin 3 Mg Tablet) 9 mg PO BEDTIME [facility] Last Admin: 03/17/24 19:58 Dose: 9 mg Documented By: MARKUS Ondansetron HCl (Ondansetron Hcl 4 Mg/2 Ml Vial) 4 mg IVPUSH Q8H PRN PRN Reason: Nausea and Vomiting Propranolol HCl (Propranolol Hcl 10 Mg Tablet) 5 mg PO BID [facility]; Protocol Last Admin: 03/18/24 09:21 Dose: 5 mg Documented By: RETA Senna/Docusate Sodium (Sennosides/Docusate Sodium Tablet) 1 tab PO BID [facility] Last Admin: 03/18/24 09:20 Dose: 1 tab Documented By: RETA Sodium Chloride (0.9 % Sodium Chloride Flush 3 Ml Syringe) [facility] Last Admin: 03/18/24 09:22 Dose: 3 ml Documented By: RETA Tamsulosin HCl (Tamsulosin Hcl 0.4 Mg Capsule) 0.4 mg PO BEDTIME [facility] Last Admin: 03/17/24 19:51 Dose: 0.4 mg Documented By: MARKUS Topiramate (Topiramate 25 Mg Tablet) 50 mg PO BID [facility] Last Admin: 03/18/24 09:20 Dose: 50 mg Documented By: RETA Trazodone HCl (Trazodone Hcl 25 Mg Halftab) 75 mg PO BEDTIME [facility] Last Admin: 03/17/24 19:56 Dose: 75 mg Documented By: MARKUS Labs 03/18/24 07:33 03/18/24 14:12 Labs: Laboratory Results - last 24 hr 03/17/24 03/17/24 03/18/24 15:31 19:49 06:55 MCV MCH MCHC RDW Plt Count MPV Immature Gran % (Auto) Neut % (Auto) Lymph % (Auto) [place] % (Auto) Eos % (Auto) Baso % (Auto) Lymph # (Auto) [place] # (Auto) Eos # (Auto) Baso # (Auto) Abs Immat Gran (auto) Absolute Neuts (auto) Absolute Nucleated RBC Nucleated RBC % (auto) Neutrophils % (Manual) Band Neutrophils % Lymphocytes % (Manual) Abs Neuts (Manual) Lymphocytes # (Manual) Platelet Estimate Plt Morphology Comment RBC Morphology Smear Tech's Comments VBG pH VBG pCO2 VBG pO2 VBG HCO3 VBG O2 Saturation VBG Base Excess Anion Gap Estim Creat Clear Calc Estimated GFR POC Glucose 142 H 223 H 172 H Random Glucose Calcium 03/18/24 03/18/24 03/18/24 07:33 10:50 14:12 MCV 95.7 MCH 29.2 MCHC 30.5 L RDW 14.1 Plt Count 198 MPV 10.2 Immature Gran % (Auto) Cancelled Neut % (Auto) Cancelled Lymph % (Auto) Cancelled [place] % (Auto) Cancelled Eos % (Auto) Cancelled Baso % (Auto) Cancelled Lymph # (Auto) Cancelled [place] # (Auto) Cancelled Eos # (Auto) Cancelled Baso # (Auto) Cancelled Abs Immat Gran (auto) Cancelled Absolute Neuts (auto) Cancelled Absolute Nucleated RBC 0.000 Nucleated RBC % (auto) 0.0 Neutrophils % (Manual) 93 H Band Neutrophils % 3 Lymphocytes % (Manual) 4 L Abs Neuts (Manual) 24.3 H Lymphocytes # (Manual) 1.0 L Platelet Estimate NORMAL Plt Morphology Comment NORMAL RBC Morphology NORMAL Smear Tech's Comments MANUAL DIFF VBG pH VBG pCO2 VBG pO2 VBG HCO3 VBG O2 Saturation VBG Base Excess Anion Gap 12 Estim Creat Clear Calc 95.5 Estimated GFR > 60 POC Glucose 170 H Random Glucose 136 H Calcium 9.2 D 03/18/24 14:18 MCV MCH MCHC RDW Plt Count MPV Immature Gran % (Auto) Neut % (Auto) Lymph % (Auto) [place] % (Auto) Eos % (Auto) Baso % (Auto) Lymph # (Auto) [place] # (Auto) Eos # (Auto) Baso # (Auto) Abs Immat Gran (auto) Absolute Neuts (auto) Absolute Nucleated RBC Nucleated RBC % (auto) Neutrophils % (Manual) Band Neutrophils % Lymphocytes % (Manual) Abs Neuts (Manual) Lymphocytes # (Manual) Platelet Estimate Plt Morphology Comment RBC Morphology Smear Tech's Comments VBG pH 7.33 VBG pCO2 87 VBG pO2 44 VBG HCO3 46 H VBG O2 Saturation 74.0 VBG Base Excess 15.5 Anion Gap Estim Creat Clear Calc Estimated GFR POC Glucose Random Glucose Calcium Assessment and Plan (1) Respiratory failure with hypoxia and hypercapnia: Status: Acute (2) Pneumonia: Status: Acute (3) Acute respiratory failure with hypercapnia: Status: Acute Plan d4 for 63yo M resident of [facility] with TBI, schizophrenia, seizure disorder, COPD not on O2 sent in with dyspnea + hypoxia, admitted for COPD exacerbation with hypoxia + hypercarbia transferred to ICU 03/15 for BiPAP but refused it, transferred to telemetry unit 03/16 acute/chronic hypoxic/hypercapneic respiratory failure due to COPD exacerbation + pneumonia - continue IV methylprednisolone [he got 125mg on 03/14, 60mg + 40mg on 03/15, nothing on 03/16, and 125 mg on 03/17] 40 mg bid, nebs - ID consulted, continue piperacillin-tazobactam 03/17- and add doxycycline 03/18- [possibly had allergic reaction to azithromycin, for which given methylprednisolone + diphenhydramine] - blood cultures negative, MRSA swab negative, trend PCT, send urinary antigens for Legionella and pneumococcus - goal SaO2 no greater than 92% given hypercarbia [which is compensated] - TTE 03/16/24: - Normal left ventricular size and systolic function. There is mildly increased left ventricular wall thickness. The visually estimated ejection fraction is between 60-65%. - E/E prime ratio is between 8 and 15 consistent with indeterminate filling pressures. - Mildly increased right ventricular cavity size. There is normal right ventricular systolic function. - There is mild dilatation of the sinuses of Valsalva measuring 3.80 cm. DM2 - basal-bolus insulin HTN - propranolol seizure disorder - topiramate schizoaffective disorder - trazodone, lithium, lorazepam VTE prophylaxis - enoxaparin dispo - eventual return to [facility] In my clinical judgment, the patient requires continued inpatient hospitalization for the following reasons: IV ABX, hypercarbia Total time managing care of this patient today: 45 minutes. Quality Stroke Does the patient have a stroke diagnosis?: No VTE Prior VTE?: No VTE Risk Level:: Medical - moderate - high VTE Device Contraindication: Treatment Not Indicated VTE Drug Contraindication: N/A - Med Ordered
[2024-03-18 15:19] LABS: Glucose, Whole Blood 122 mg/dL (60-115)
[2024-03-18] MEDS: methylPREDNISolone Sod Succ 40 MG/ML VIAL IVPUSH (15:26)
[2024-03-18] MEDS: Furosemide 40 MG/4 ML VIAL IVPUSH (15:26)
[2024-03-18] MEDS: LORazepam 2 MG/ML VIAL IVPUSH (15:36)
--- NOTE | 2024-03-18 15:54 | PM.EVENT ---
Event Note Date of Service: 03/18/24 Event Note: SENIOR CLINICAL DATA COORDINATOR called for pt becoming hypoxic and having difficulty breathing. SaO2 down to 57. Tachypneic with wet crackles. Given Lasix 40 mg IV + Solumedrol 40 mg IV Pt has been repeatedly pulling off oxygen and reportedly was actually never on BiPAP or HFNC in the ICU because he kept pulling it off. VBG 7.33/87 Placed on oxymask then NC, SaO2 now 90 and pt more comfortable. Will consult Pulm Time Spent With Patient Time: Total time managing care of this patient today ____ minutes.
[2024-03-18 16:17] LABS: Procalcitonin 0.09 ng/mL
[2024-03-18] MEDS: levoFLOXacin/D5W 500 MG/100 ML PIGGYBACK 100 MG IV (17:01)
[2024-03-18] MEDS: levoFLOXacin/D5W 250 MG/50 ML PIGGYBACK 50 MG IV (17:02)
[2024-03-18] MEDS: acetaZOLAMIDE sodium 500 MG VIAL 250 MG IVPUSH (17:02)
[2024-03-18 21:33] LABS: Glucose, Whole Blood 171 mg/dL (60-115)
[2024-03-19] VITALS (27 sets, daily range): BP systolic 77–171; BP diastolic 40–83; PULSE 52–96; RESP 16–26; TEMP 34.7–38.4; O2SAT 90–100
[2024-03-19 00:13] LABS: Strep Pneumo Ag urine Not Detected (Not Detected)
[2024-03-19] MEDS: Doxycycline Hyclate 100 MG in 0.9 % Sodium Chloride 250 ML 166.67 MG IV ×2 (00:30→13:00)
--- NOTE | 2024-03-19 02:33 | PC.RT ---
Attempted ABG with help of RN and tech. Patient became combative. This RT as well as the RN agree that it is unsafe to proceed. RN contacted MD to notify of patients behaviors.
[2024-03-19] MEDS: methylPREDNISolone Sod Succ 40 MG/ML VIAL IVPUSH (03:02)
[2024-03-19 06:53] LABS: Hematocrit 46.3 % (42.0-52.0); Hemoglobin 13.8 g/dl (14.0-18.0); Mean Corpuscular HGB Conc 29.8 g/dl (31.0-36.0); Mean Corpuscular Hemoglobin 29.5 pg (27.0-33.0); Mean Corpuscular Volume 98.9 fL (80.0-98.0); Mean Platelet Volume 10.4 fL (9.4-12.4); Platelet Count 197 X10*3/uL (160-400); Red Blood Count 4.68 X10*6/uL (4.60-5.80); Red Cell Distribution Width 14.1 % (11.0-16.0); White Blood Count 25.6 X10*3/uL (4.8-10.8)
[2024-03-19 07:29] LABS: Alanine Aminotransferase 32 U/L (0-40); Albumin Level 3.6 g/dL (3.5-5.0); Alkaline Phosphatase 117 U/L (39-117); Anion Gap 14 (12-20); Aspartate Amino Transferase 18 U/L (5-37); B Type Natriuretic Peptide 64 pg/mL (<100); Bilirubin Total 0.4 mg/dL (0.0-1.0); Blood Urea Nitrogen 35 mg/dL (9-16); Calcium 8.6 mg/dL (8.4-10.2); Carbon Dioxide 38 mmol/L (22-29); Chloride 95 mmol/L (96-108); Creatinine Clr Calc Pharmacy 99.4; Estimated Glomerular Filt Rate > 60; Glucose Fasting 147 mg/dL (60-99); Glucose Random 146 mg/dL (60-115); Potassium 4.2 mmol/L (3.3-5.1); Sodium 143 mmol/L (135-145); Total Protein 7.4 g/dL (6.5-8.0)
[2024-03-19 07:45] LABS: Procalcitonin 0.07 ng/mL
[2024-03-19 07:50] LABS: Glucose, Whole Blood 159 mg/dL (60-115)
[2024-03-19 07:58] LABS: HIV AB/AG Nonreactive (Nonreactive); HIV Num 1 0.05 S/CO (0.00-0.99)
[2024-03-19 08:27] LABS: Venous Blood Gas Refer to POC result
[2024-03-19 08:29] LABS: VBG Base Excess 12.6 mmol/L; VBG HCO3 44 mmol/L (22-26); VBG pCO2 88 mmHg; VBG pO2 60 mmHg
[2024-03-19 09:44] LABS: Glucose, Whole Blood 169 mg/dL (60-115)
[2024-03-19] MEDS: LORazepam 2 MG/ML VIAL IVPUSH (10:15)
[2024-03-19] MEDS: Enoxaparin Sodium 40 MG/0.4 ML SYRINGE SUBCUT (10:19)
[2024-03-19] MEDS: Insulin Glargine,Hum.rec.anlog 100 UNIT/ML 10 ML VIAL 12 UNIT SUBCUT (10:19)
--- NOTE | 2024-03-19 10:42 | P.CONPL_ITS ---
History of Present Illness History of Present Illness Consult date: 03/19/24 Chief complaint: Hypercapnia, Hypoxia Narrative: 63-year-old gentleman with underlying diabetes mellitus, TBI, seizure disorder, COPD admitted on 03/15/2024 with dyspnea. Patient initially noted to be in respiratory acidosis that improved with application of BiPAP. Patient was titrated to nasal cannula, however he started to retain CO2 again and was admitted to intensive care unit for close monitoring. His respiratory viral panel was negative. CT angio chest showed evidence of pulmonary emboli, but some pulmonary edema. He was treated with diuretic with improvement in his blood gases and downgraded to telemetry victoria. Patient continued with intermittent CO2 retention and noncompliance with nocturnal BiPAP therapy. Review of Systems 2 Review of Systems: Yes Unobtainable due to mental condition [facility] Past Medical History Medical History (Updated 03/17/24 @ 16:45 by Bee Garcia MD) Leukocytosis COPD (chronic obstructive pulmonary disease) TBI (traumatic brain injury) Family History Family history: reviewed and not pertinent Social History Social History Household Members: None Housing: Assisted Living Facility Do you presently have visiting nurse or other home services: No ([facility]) Patient Tobacco Use Status: Current everyday Tobacco user Tobacco use type: Cigarette Cigarettes Per Day: 8 e-Cigarette/Vaping Use: Never Used Second Hand Smoke Exposure: No Advance Directives Date on File: 03/15/24 Meds Allergies Allergy/AdvReac Type Severity Reaction Status Date / Time No Known Allergies Allergy Verified 03/14/24 17:49 Active Medications: Current Medications Acetazolamide (Acetazolamide Sodium 500 Mg Vial) 500 mg IVPUSH ONCE ONE Stop: 03/19/24 10:25 Albuterol/Ipratropium (Albuterol/Iprat 2.5/0.5mg 3 Ml Ampul.Neb) 3 ml INHALE RQ6H WHILE AWAKE [facility] Last Admin: 03/19/24 07:51 Dose: Not Given Aspirin (Aspirin Enteric Coated 81 Mg Tablet.) 81 mg PO DAILY [facility] Last Admin: 03/19/24 10:20 Dose: Not Given Diphenhydramine HCl (Diphenhydramine Hcl 50 Mg/Ml Vial) 25 mg IVPUSH Q6H PRN PRN Reason: itching Enoxaparin Sodium (Enoxaparin Sodium 40 Mg/0.4 Ml Syringe) 40 mg SUBCUT Q24H [facility] Last Admin: 03/19/24 10:19 Dose: 40 mg Doxycycline Hyclate 100 mg/ (Sodium Chloride) 250 mls @ 166.67 mls/hr IV Q12H [facility] Last Infusion: 03/19/24 02:38 Dose: Infused Insulin Glargine (Insulin Glargine,Hum.Rec.Anlog 100 Unit/Ml 10 Ml Vial) 12 unit SUBCUT DAILY [facility] Last Admin: 03/19/24 10:19 Dose: 12 unit Insulin Human Lispro (Insulin Lispro 100 Unit/Ml 3 Ml Vial) 0 unit SUBCUT QIDACHS [facility]; Protocol Last Admin: 03/19/24 10:20 Dose: Not Given Levofloxacin (Levofloxacin 750 Mg Tablet) 750 mg PO Q24H [facility] [place] Carbonate ([place] Carbonate 300 Mg Capsule) 300 mg PO BID [facility] Last Admin: 03/19/24 10:21 Dose: Not Given [place] Carbonate ([place] Carbonate 300 Mg Tablet) 150 mg PO BID [facility] Last Admin: 03/19/24 10:21 Dose: Not Given Lorazepam (Lorazepam 2 Mg/Ml Vial) 2 mg IVPUSH ONCE PRN PRN Reason: Seizures Lorazepam (Lorazepam 2 Mg/Ml Vial) 2 mg IVPUSH Q4H PRN PRN Reason: anxiety/restlessness Last Admin: 03/19/24 10:15 Dose: 2 mg Lorazepam (Lorazepam 1 Mg Tablet) 1 mg PO BID [facility] Last Admin: 03/19/24 10:21 Dose: Not Given Melatonin (Melatonin 3 Mg Tablet) 9 mg PO BEDTIME [facility] Last Admin: 03/18/24 22:50 Dose: Not Given Methylprednisolone Sodium Succinate (Methylprednisolone Sod Succ 40 Mg/Ml Vial) 40 mg IVPUSH Q12H [facility] Last Admin: 03/19/24 03:02 Dose: 40 mg Ondansetron HCl (Ondansetron Hcl 4 Mg/2 Ml Vial) 4 mg IVPUSH Q8H PRN PRN Reason: Nausea and Vomiting Propranolol HCl (Propranolol Hcl 10 Mg Tablet) 5 mg PO BID [facility]; Protocol Last Admin: 03/19/24 10:21 Dose: Not Given Senna/Docusate Sodium (Sennosides/Docusate Sodium Tablet) 1 tab PO BID [facility] Last Admin: 03/19/24 10:21 Dose: Not Given Sodium Chloride (0.9 % Sodium Chloride Flush 3 Ml Syringe) 3 ml IVFLUSH QSHIFT [facility] Last Admin: 03/18/24 23:26 Dose: Not Given Tamsulosin HCl (Tamsulosin Hcl 0.4 Mg Capsule) 0.4 mg PO BEDTIME [facility] Last Admin: 03/18/24 22:51 Dose: Not Given Topiramate (Topiramate 25 Mg Tablet) 50 mg PO BID [facility] Last Admin: 03/19/24 10:21 Dose: Not Given Trazodone HCl (Trazodone Hcl 25 Mg Halftab) 75 mg PO BEDTIME [facility] Last Admin: 03/18/24 22:51 Dose: Not Given Home Medications ?Medication ?Instructions ?Recorded ?Confirmed ?Last Taken ?Type acetaminophen 325 mg tablet 650 mg PO Q6H PRN Fever Or Pain 03/15/24 03/15/24 Unknown History albuterol sulfate 90 mcg/actuation 2 puff inhalation Q6H PRN 03/15/24 03/15/24 Unknown History aerosol inhaler Bronchospasm aspirin 81 mg tablet,delayed 81 mg PO DAILY 03/15/24 03/15/24 Unknown History release atorvastatin 10 mg tablet 10 mg PO BEDTIME 03/15/24 03/15/24 Unknown History bisacodyl 10 mg rectal suppository 10 mg MS DAILY PRN constipation if 03/15/24 03/15/24 Unknown History senna ineffective fexofenadine 180 mg tablet 180 mg PO DAILY 03/15/24 03/15/24 Unknown History fluticasone furoate 100 1 inh inhalation DAILY 03/15/24 03/15/24 Unknown History mcg-vilanterol 25 mcg/dose inhalation powder (Breo Ellipta) guaifenesin 200 mg/5 mL oral liquid 400 mg PO Q4H PRN Congestion 03/15/24 03/15/24 Unknown History ibuprofen 600 mg tablet 600 mg PO Q8H PRN Pain 03/15/24 03/15/24 Unknown History insulin NPH isoph U-100 human 100 12 unit subcut BEDTIME 03/15/24 03/15/24 Unknown History unit/mL subcutaneous suspension (Humulin N NPH U-100 Insulin (isophane susp)) insulin NPH isoph U-100 human 100 18 unit subcut DAILY 03/15/24 03/15/24 Unknown History unit/mL subcutaneous suspension (Humulin N NPH U-100 Insulin (isophane susp)) lithium carbonate 150 mg capsule 150 mg PO BID 03/15/24 03/15/24 Unknown History lithium carbonate 300 mg capsule 300 mg PO BID 03/15/24 03/15/24 Unknown History lorazepam 1 mg tablet 1 mg PO BID 03/15/24 03/15/24 Unknown History melatonin 3 mg tablet 9 mg PO BEDTIME 03/15/24 03/15/24 Unknown History metformin 500 mg tablet 500 mg PO BID 03/15/24 03/15/24 Unknown History ondansetron HCl 8 mg tablet 8 mg PO Q6H PRN nausea/vomiting 03/15/24 03/15/24 Unknown History peg [id number] 1 2 drp ophthalmic (eye) Q8H PRN 03/15/24 03/15/24 Unknown History %-0.2 %-0.2 % eye drops itchy eyes (Artificial Tears ([id number])) propranolol 10 mg tablet 5 mg PO BID 03/15/24 03/15/24 Unknown History sennosides 8.6 mg-docusate sodium 1 tab-cap PO BID 03/15/24 03/15/24 Unknown History 50 mg tablet (Senna with Docusate Sodium) simethicone 80 mg tablet 80 mg PO Q6H PRN 03/15/24 03/15/24 Unknown History flatulence/bloating sodium phosphates 19 gram-7 118 ml MS DAILY PRN constipation 03/15/24 03/15/24 Unknown History gram/118 mL enema (Fleet Enema) if bisacodyl supp ineffective tamsulosin 0.4 mg capsule 0.4 mg PO BEDTIME 03/15/24 03/15/24 Unknown History tiotropium bromide 2.5 2 puff inhalation DAILY 03/15/24 03/15/24 Unknown History mcg/actuation mist for inhalation (Spiriva Respimat) topiramate 50 mg tablet 50 mg PO BID 03/15/24 03/15/24 Unknown History trazodone 50 mg tablet 75 mg PO BEDTIME 03/15/24 03/15/24 Unknown History Physical Exam 2 Vital Signs: Vital Signs: Last Vital Signs Temp 98.6 F 03/19/24 08:00 Pulse 83 03/19/24 08:00 Resp 20 03/19/24 10:32 BP 145/68 H 03/19/24 08:00 Pulse Ox 94 03/19/24 08:00 O2 Del Method Nasal Cannula 03/19/24 08:00 O2 Flow Rate 7 03/19/24 08:00 Oxygen Flow Rate 11 03/18/24 15:30 BMI result Body Mass Index 33.2 Const: General: no acute distress, alert and awake Eyes: Sclerae: sclerae normal EOM: EOMs intact bilaterally Neck: Neck: Yes no lymphadenopathy, Yes trachea midline and Yes supple Resp: Effort & Inspection: normal respiratory effort and no respiratory distress Auscultation: clear to auscultation bilaterally Cardio: Rate: regular rate Rhythm: regular rhythm Heart sounds: no gallops, no murmurs and no rubs GI: Palpation (GI): Soft to palpation and Other GI palpation findings present ( Nontender) Auscultation: normal bowel sounds Extrem: General: No clubbing, No cyanosis, Yes edema (Trace bilateral) and Yes venous stasis dermatitis Results Laboratory Findings 03/19/24 06:12 03/19/24 06:11 Abnormal lab findings: Abnormal Labs 03/14/24 03/14/24 03/14/24 17:45 17:56 18:33 WBC 21.8 H RBC Hgb MCV MCHC Immature Gran % (Auto) 0.6 H Neut % (Auto) 86.0 H Lymph % (Auto) 6.3 L Lymph # (Auto) Eos # (Auto) Abs Immat Gran (auto) 0.13 H Absolute Neuts (auto) 18.8 H Neutrophils % (Manual) Lymphocytes % (Manual) Abs Neuts (Manual) Lymphocytes # (Manual) ABG pH at Pt Temp ABG pCO2 at Pt Temp ABG HCO3 VBG pH VBG HCO3 35 H Sodium Potassium Chloride Carbon Dioxide 31 H BUN 17 H POC Glucose Random Glucose 210 H Fasting Glucose Phosphorus Magnesium Troponin I High Sens B-Natriuretic Peptide 130 H Urine Protein Urine Blood Urine RBC 03/14/24 03/14/24 03/14/24 18:36 20:52 21:27 WBC RBC Hgb MCV MCHC Immature Gran % (Auto) Neut % (Auto) Lymph % (Auto) Lymph # (Auto) Eos # (Auto) Abs Immat Gran (auto) Absolute Neuts (auto) Neutrophils % (Manual) Lymphocytes % (Manual) Abs Neuts (Manual) Lymphocytes # (Manual) ABG pH at Pt Temp ABG pCO2 at Pt Temp ABG HCO3 VBG pH 7.18 L* VBG HCO3 37 H Sodium Potassium Chloride Carbon Dioxide BUN POC Glucose Random Glucose Fasting Glucose Phosphorus Magnesium Troponin I High Sens 46.2 H D B-Natriuretic Peptide Urine Protein 300 (3+) H Urine Blood Large (3+) H Urine RBC >20 H 03/15/24 03/15/24 03/15/24 01:26 07:13 08:04 WBC RBC Hgb MCV MCHC Immature Gran % (Auto) Neut % (Auto) Lymph % (Auto) Lymph # (Auto) Eos # (Auto) Abs Immat Gran (auto) Absolute Neuts (auto) Neutrophils % (Manual) Lymphocytes % (Manual) Abs Neuts (Manual) Lymphocytes # (Manual) ABG pH at Pt Temp 7.28 L ABG pCO2 at Pt Temp 75 H* ABG HCO3 36 H VBG pH 7.22 L VBG HCO3 35 H Sodium Potassium Chloride Carbon Dioxide BUN POC Glucose 280 H Random Glucose Fasting Glucose Phosphorus Magnesium Troponin I High Sens B-Natriuretic Peptide Urine Protein Urine Blood Urine RBC 03/15/24 03/15/24 03/15/24 09:38 09:42 11:08 WBC 26.4 H RBC 4.51 L Hgb 13.3 L MCV MCHC 30.7 L Immature Gran % (Auto) Neut % (Auto) Lymph % (Auto) Lymph # (Auto) Eos # (Auto) Abs Immat Gran (auto) Absolute Neuts (auto) Neutrophils % (Manual) Lymphocytes % (Manual) Abs Neuts (Manual) Lymphocytes # (Manual) ABG pH at Pt Temp ABG pCO2 at Pt Temp ABG HCO3 VBG pH 7.26 L 7.26 L VBG HCO3 33 H 33 H Sodium 133 L Potassium 5.2 H D Chloride 94 L Carbon Dioxide BUN 25 H POC Glucose Random Glucose 385 H* Fasting Glucose Phosphorus Magnesium Troponin I High Sens B-Natriuretic Peptide Urine Protein Urine Blood Urine RBC 03/15/24 03/15/24 03/15/24 12:34 16:21 16:58 WBC RBC Hgb MCV MCHC Immature Gran % (Auto) Neut % (Auto) Lymph % (Auto) Lymph # (Auto) Eos # (Auto) Abs Immat Gran (auto) Absolute Neuts (auto) Neutrophils % (Manual) Lymphocytes % (Manual) Abs Neuts (Manual) Lymphocytes # (Manual) ABG pH at Pt Temp ABG pCO2 at Pt Temp ABG HCO3 VBG pH VBG HCO3 Sodium 131 L Potassium 5.2 H Chloride 93 L Carbon Dioxide 30 H BUN 29 H POC Glucose 327 H 271 H Random Glucose 287 H Fasting Glucose Phosphorus Magnesium Troponin I High Sens B-Natriuretic Peptide Urine Protein Urine Blood Urine RBC 03/15/24 03/15/24 03/16/24 20:19 20:22 05:12 WBC RBC Hgb MCV MCHC Immature Gran % (Auto) Neut % (Auto) Lymph % (Auto) Lymph # (Auto) Eos # (Auto) Abs Immat Gran (auto) Absolute Neuts (auto) Neutrophils % (Manual) Lymphocytes % (Manual) Abs Neuts (Manual) Lymphocytes # (Manual) ABG pH at Pt Temp ABG pCO2 at Pt Temp ABG HCO3 VBG pH VBG HCO3 33 H 38 H Sodium Potassium Chloride Carbon Dioxide BUN POC Glucose 295 H Random Glucose Fasting Glucose Phosphorus Magnesium Troponin I High Sens B-Natriuretic Peptide Urine Protein Urine Blood Urine RBC 03/16/24 03/16/24 03/16/24 05:18 07:06 11:26 WBC 25.3 H RBC 4.43 L Hgb 13.1 L MCV MCHC Immature Gran % (Auto) 1.1 H Neut % (Auto) 90.2 H Lymph % (Auto) 4.5 L Lymph # (Auto) 1.1 L Eos # (Auto) Abs Immat Gran (auto) 0.27 H Absolute Neuts (auto) 22.8 H Neutrophils % (Manual) Lymphocytes % (Manual) Abs Neuts (Manual) Lymphocytes # (Manual) ABG pH at Pt Temp ABG pCO2 at Pt Temp ABG HCO3 VBG pH VBG HCO3 Sodium 133 L Potassium Chloride 94 L Carbon Dioxide 31 H BUN 29 H POC Glucose 146 H 170 H Random Glucose 153 H Fasting Glucose Phosphorus 2.5 L Magnesium 2.8 H Troponin I High Sens B-Natriuretic Peptide Urine Protein Urine Blood Urine RBC 03/16/24 03/16/24 03/17/24 16:09 20:47 06:51 WBC RBC Hgb MCV MCHC Immature Gran % (Auto) Neut % (Auto) Lymph % (Auto) Lymph # (Auto) Eos # (Auto) Abs Immat Gran (auto) Absolute Neuts (auto) Neutrophils % (Manual) Lymphocytes % (Manual) Abs Neuts (Manual) Lymphocytes # (Manual) ABG pH at Pt Temp ABG pCO2 at Pt Temp ABG HCO3 VBG pH VBG HCO3 Sodium Potassium Chloride Carbon Dioxide BUN POC Glucose 170 H 211 H 154 H Random Glucose Fasting Glucose Phosphorus Magnesium Troponin I High Sens B-Natriuretic Peptide Urine Protein Urine Blood Urine RBC 03/17/24 03/17/24 03/17/24 07:19 07:30 10:48 WBC 30.0 H* RBC Hgb MCV MCHC 30.8 L Immature Gran % (Auto) 2.2 H Neut % (Auto) 87.2 H Lymph % (Auto) 3.8 L Lymph # (Auto) Eos # (Auto) 0.8 H Abs Immat Gran (auto) 0.67 H Absolute Neuts (auto) 26.2 H Neutrophils % (Manual) Lymphocytes % (Manual) Abs Neuts (Manual) Lymphocytes # (Manual) ABG pH at Pt Temp ABG pCO2 at Pt Temp ABG HCO3 VBG pH 7.25 L VBG HCO3 39 H Sodium 131 L Potassium Chloride 91 L Carbon Dioxide 33 H BUN 29 H POC Glucose 182 H Random Glucose 185 H Fasting Glucose Phosphorus Magnesium Troponin I High Sens B-Natriuretic Peptide Urine Protein Urine Blood Urine RBC 03/17/24 03/17/24 03/18/24 15:31 19:49 06:55 WBC RBC Hgb MCV MCHC Immature Gran % (Auto) Neut % (Auto) Lymph % (Auto) Lymph # (Auto) Eos # (Auto) Abs Immat Gran (auto) Absolute Neuts (auto) Neutrophils % (Manual) Lymphocytes % (Manual) Abs Neuts (Manual) Lymphocytes # (Manual) ABG pH at Pt Temp ABG pCO2 at Pt Temp ABG HCO3 VBG pH VBG HCO3 Sodium Potassium Chloride Carbon Dioxide BUN POC Glucose 142 H 223 H 172 H Random Glucose Fasting Glucose Phosphorus Magnesium Troponin I High Sens B-Natriuretic Peptide Urine Protein Urine Blood Urine RBC 03/18/24 03/18/24 03/18/24 07:33 10:50 14:12 WBC 25.3 H RBC Hgb MCV MCHC 30.5 L Immature Gran % (Auto) Neut % (Auto) Lymph % (Auto) Lymph # (Auto) Eos # (Auto) Abs Immat Gran (auto) Absolute Neuts (auto) Neutrophils % (Manual) 93 H Lymphocytes % (Manual) 4 L Abs Neuts (Manual) 24.3 H Lymphocytes # (Manual) 1.0 L ABG pH at Pt Temp ABG pCO2 at Pt Temp ABG HCO3 VBG pH VBG HCO3 Sodium Potassium Chloride Carbon Dioxide 38 H BUN 31 H POC Glucose 170 H Random Glucose 136 H Fasting Glucose Phosphorus Magnesium Troponin I High Sens B-Natriuretic Peptide Urine Protein Urine Blood Urine RBC 03/18/24 03/18/24 03/18/24 14:18 15:16 21:29 WBC RBC Hgb MCV MCHC Immature Gran % (Auto) Neut % (Auto) Lymph % (Auto) Lymph # (Auto) Eos # (Auto) Abs Immat Gran (auto) Absolute Neuts (auto) Neutrophils % (Manual) Lymphocytes % (Manual) Abs Neuts (Manual) Lymphocytes # (Manual) ABG pH at Pt Temp ABG pCO2 at Pt Temp ABG HCO3 VBG pH VBG HCO3 46 H Sodium Potassium Chloride Carbon Dioxide BUN POC Glucose 122 H 171 H Random Glucose Fasting Glucose Phosphorus Magnesium Troponin I High Sens B-Natriuretic Peptide Urine Protein Urine Blood Urine RBC 03/19/24 03/19/24 03/19/24 06:11 06:12 07:27 WBC 25.6 H RBC Hgb 13.8 L MCV 98.9 H MCHC 29.8 L Immature Gran % (Auto) Neut % (Auto) Lymph % (Auto) Lymph # (Auto) Eos # (Auto) Abs Immat Gran (auto) Absolute Neuts (auto) Neutrophils % (Manual) Lymphocytes % (Manual) Abs Neuts (Manual) Lymphocytes # (Manual) ABG pH at Pt Temp ABG pCO2 at Pt Temp ABG HCO3 VBG pH VBG HCO3 Sodium Potassium Chloride 95 L Carbon Dioxide 38 H BUN 35 H POC Glucose 159 H Random Glucose 146 H Fasting Glucose 147 H Phosphorus Magnesium Troponin I High Sens B-Natriuretic Peptide Urine Protein Urine Blood Urine RBC 03/19/24 03/19/24 08:24 09:32 WBC RBC Hgb MCV MCHC Immature Gran % (Auto) Neut % (Auto) Lymph % (Auto) Lymph # (Auto) Eos # (Auto) Abs Immat Gran (auto) Absolute Neuts (auto) Neutrophils % (Manual) Lymphocytes % (Manual) Abs Neuts (Manual) Lymphocytes # (Manual) ABG pH at Pt Temp ABG pCO2 at Pt Temp ABG HCO3 VBG pH 7.30 L VBG HCO3 44 H Sodium Potassium Chloride Carbon Dioxide BUN POC Glucose 169 H Random Glucose Fasting Glucose Phosphorus Magnesium Troponin I High Sens B-Natriuretic Peptide Urine Protein Urine Blood Urine RBC Microbiology: Microbiology 03/14/24 17:45 Blood - Venous Blood Culture - Preliminary No growth after 48 hours. 03/14/24 17:45 Blood - Venous Blood Culture - Preliminary No growth after 48 hours. Assessment and Plan (1) Acute respiratory failure with hypercapnia: Status: Acute (2) COPD (chronic obstructive pulmonary disease): Status: Acute Plan Impression: 63-year-old gentleman with underlying TBI, COPD, and CO2 retention admitted with dyspnea secondary to acute on chronic respiratory failure with hypoxia and hypercapnia intermittently requiring BiPAP support with suboptimal compliance with BiPAP. Patient continues with intermittent episode of hypercapnia as his somewhat resistant to scheduled BiPAP use. Recommendations: Agree with BiPAP trial. Would continue with nocturnal BiPAP consider tapering off systemic glucocorticoids. Agree with empiric CAP coverage. Agree with scheduled acetazolamide. Procedures Date of Service Date of Service: 03/19/24
[2024-03-19] MEDS: acetaZOLAMIDE sodium 500 MG VIAL IVPUSH (10:49)
[2024-03-19] MEDS: 0.9 % Sodium Chloride Flush 3 ML SYRINGE IVFLUSH ×2 (10:59→17:43)
[2024-03-19 11:27] LABS: ABG Base Excess 11.2 mmol/L; ABG HCO3 42 mmol/L (22-26); ABG pCO2 85 mmHg (32-45); ABG pO2 66 mmHg (83-108)
[2024-03-19] MEDS: diphenhydrAMINE HCL 50 MG/ML VIAL 25 MG IVPUSH (11:28)
--- NOTE | 2024-03-19 11:38 | MHC.CM.PN ---
Per rounds and EMR review, pt is not ready to DC, he requires ongoing treatment for hypercarbia and he is on IV ABX. DCP is for pt to return tO LTC at [facility] via [facility].
[2024-03-19 11:40] LABS: Glucose, Whole Blood 188 mg/dL (60-115)
[2024-03-19] MEDS: Insulin Lispro 100 UNIT/ML 3 ML VIAL SUBCUT ×2 (11:54→17:59)
--- NOTE | 2024-03-19 12:43 | HO.PM.IMPN ---
Subjective Subjective Date of Service: 03/19/24 Interval History: This AM was on 7L O2 with SaO2 98%. I decreased to 2L O2 with SaO2 90-91%. Subsequently pt became cyanotic and hypoxic with SaO2 57%. He finally agreed to BiPAP. Review of Systems Review of Systems: Yes Unobtainable due to mental status Physical Exam Vital Signs: Vital Signs: Last Vital Signs Temp 97.8 F 03/19/24 11:34 Pulse 96 03/19/24 11:34 Resp 26 H 03/19/24 11:34 BP 149/83 H 03/19/24 11:34 Pulse Ox 92 03/19/24 11:34 O2 Del Method BiPAP 03/19/24 11:34 O2 Flow Rate 7 03/19/24 08:00 FiO2 30 03/19/24 11:34 Oxygen Flow Rate 11 03/18/24 15:30 BMI result Body Mass Index 33.2 Gen: comfortable on BiPAP HEENT: sclera anicteric, moist mucus membranes Neck: supple Lungs: diminished Heart: regular rate and rhythm, no murmurs Abd: soft, non-tender, non-distended Ext: no edema Skin: warm/well-perfused Neuro: alert and oriented to self + place, moving all extremities Psych: appropriate affect Objective Data Active Medications Albuterol/Ipratropium (Albuterol/Iprat 2.5/0.5mg 3 Ml Ampul.Neb) 3 ml INHALE RQ6H WHILE AWAKE [facility] Last Admin: 03/19/24 07:51 Dose: Not Given Documented By: INDIRA Non-Admin Reason: Agitation Aspirin (Aspirin Enteric Coated 81 Mg Tablet.) 81 mg PO DAILY [facility] Last Admin: 03/19/24 10:20 Dose: Not Given Documented By: BHAVIN Non-Admin Reason: Physician Held Med Diphenhydramine HCl (Diphenhydramine Hcl 50 Mg/Ml Vial) 25 mg IVPUSH Q6H PRN PRN Reason: itching Last Admin: 03/19/24 11:28 Dose: 25 mg Documented By: BHAVIN Enoxaparin Sodium (Enoxaparin Sodium 40 Mg/0.4 Ml Syringe) 40 mg SUBCUT Q24H [facility] Last Admin: 03/19/24 10:19 Dose: 40 mg Documented By: BHAVIN Doxycycline Hyclate 100 mg/ (Sodium Chloride) 250 mls @ 166.67 mls/hr IV Q12H [facility] Last Infusion: 03/19/24 02:38 Dose: Infused Documented By: MAYCOL Insulin Glargine (Insulin Glargine,Hum.Rec.Anlog 100 Unit/Ml 10 Ml Vial) 12 unit SUBCUT DAILY [facility] Last Admin: 03/19/24 10:19 Dose: 12 unit Documented By: BHAVIN Insulin Human Lispro (Insulin Lispro 100 Unit/Ml 3 Ml Vial) 0 unit SUBCUT QIDACHS [facility]; Protocol Last Admin: 03/19/24 11:54 Dose: 2 unit Documented By: BHAVIN Levofloxacin (Levofloxacin 750 Mg Tablet) 750 mg PO Q24H [facility] [place] Carbonate ([place] Carbonate 300 Mg Capsule) 300 mg PO BID [facility] Last Admin: 03/19/24 10:21 Dose: Not Given Documented By: BHAVIN Non-Admin Reason: Physician Held Med [place] Carbonate ([place] Carbonate 300 Mg Tablet) 150 mg PO BID [facility] Last Admin: 03/19/24 10:21 Dose: Not Given Documented By: BHAVIN Non-Admin Reason: Physician Held Med Lorazepam (Lorazepam 2 Mg/Ml Vial) 2 mg IVPUSH ONCE PRN PRN Reason: Seizures Lorazepam (Lorazepam 2 Mg/Ml Vial) 2 mg IVPUSH Q4H PRN PRN Reason: anxiety/restlessness Last Admin: 03/19/24 10:15 Dose: 2 mg Documented By: BHAVIN Lorazepam (Lorazepam 1 Mg Tablet) 1 mg PO BID [facility] Last Admin: 03/19/24 10:21 Dose: Not Given Documented By: BHAVIN Non-Admin Reason: Physician Held Med Melatonin (Melatonin 3 Mg Tablet) 9 mg PO BEDTIME [facility] Last Admin: 03/18/24 22:50 Dose: Not Given Documented By: MAYCOL Non-Admin Reason: Patient Refused Ondansetron HCl (Ondansetron Hcl 4 Mg/2 Ml Vial) 4 mg IVPUSH Q8H PRN PRN Reason: Nausea and Vomiting Propranolol HCl (Propranolol Hcl 10 Mg Tablet) 5 mg PO BID [facility]; Protocol Last Admin: 03/19/24 10:21 Dose: Not Given Documented By: BHAVIN Non-Admin Reason: Physician Held Med [place]/Docusate Sodium (Sennosides/Docusate Sodium Tablet) 1 tab PO BID [facility] Last Admin: 03/19/24 10:21 Dose: Not Given Documented By: BHAVIN Non-Admin Reason: Physician Held Med Sodium Chloride (0.9 % Sodium Chloride Flush 3 Ml Syringe) 3 ml IVFLUSH QSHIFT [facility] Last Admin: 03/19/24 10:59 Dose: 3 ml Documented By: BHAVIN Tamsulosin HCl (Tamsulosin Hcl 0.4 Mg Capsule) 0.4 mg PO BEDTIME [facility] Last Admin: 03/18/24 22:51 Dose: Not Given Documented By: MAYCOL Non-Admin Reason: Patient Refused Topiramate (Topiramate 25 Mg Tablet) 50 mg PO BID [facility] Last Admin: 03/19/24 10:21 Dose: Not Given Documented By: BHAVIN Non-Admin Reason: Physician Held Med Trazodone HCl (Trazodone Hcl 25 Mg Halftab) 75 mg PO BEDTIME [facility] Last Admin: 03/18/24 22:51 Dose: Not Given Documented By: MAYCOL Non-Admin Reason: Patient Refused Labs 03/19/24 06:12 03/19/24 06:11 Labs: Laboratory Results - last 24 hr 03/14/24 03/18/24 03/18/24 18:36 14:12 14:18 MCV MCH MCHC RDW Plt Count MPV Absolute Nucleated RBC Nucleated RBC % (auto) O2 Saturation ABG pH at Pt Temp ABG pCO2 at Pt Temp ABG pO2 at Pt Temp ABG HCO3 ABG Base Excess (Actual) VBG pH 7.33 VBG pCO2 87 VBG pO2 44 VBG HCO3 46 H VBG O2 Saturation 74.0 VBG Base Excess 15.5 Anion Gap 12 Estim Creat Clear Calc 95.5 Estimated GFR > 60 POC Glucose Random Glucose 136 H Fasting Glucose Calcium 9.2 D Total Bilirubin AST ALT Alkaline Phosphatase B-Natriuretic Peptide Total Protein Albumin Procalcitonin 0.09 HIV 1&2 Ab/P24 Ag 4thGn Ur Strep pneumoniae Ag Not Detected 03/18/24 03/18/24 03/19/24 15:16 21:29 06:11 MCV MCH MCHC RDW Plt Count MPV Absolute Nucleated RBC Nucleated RBC % (auto) O2 Saturation ABG pH at Pt Temp ABG pCO2 at Pt Temp ABG pO2 at Pt Temp ABG HCO3 ABG Base Excess (Actual) VBG pH VBG pCO2 VBG pO2 VBG HCO3 VBG O2 Saturation VBG Base Excess Anion Gap 14 Estim Creat Clear Calc 99.4 Estimated GFR > 60 POC Glucose 122 H 171 H Random Glucose 146 H Fasting Glucose 147 H Calcium 8.6 D Total Bilirubin 0.4 AST 18 ALT 32 Alkaline Phosphatase 117 B-Natriuretic Peptide 64 Total Protein 7.4 Albumin 3.6 Procalcitonin 0.07 HIV 1&2 Ab/P24 Ag 4thGn Nonreactive Ur Strep pneumoniae Ag 03/19/24 03/19/24 03/19/24 06:12 07:27 08:24 MCV 98.9 H MCH 29.5 MCHC 29.8 L RDW 14.1 Plt Count 197 MPV 10.4 Absolute Nucleated RBC 0.000 Nucleated RBC % (auto) 0.0 O2 Saturation ABG pH at Pt Temp ABG pCO2 at Pt Temp ABG pO2 at Pt Temp ABG HCO3 ABG Base Excess (Actual) VBG pH 7.30 L VBG pCO2 88 VBG pO2 60 VBG HCO3 44 H VBG O2 Saturation 86.0 VBG Base Excess 12.6 Anion Gap Estim Creat Clear Calc Estimated GFR POC Glucose 159 H Random Glucose Fasting Glucose Calcium Total Bilirubin AST ALT Alkaline Phosphatase B-Natriuretic Peptide Total Protein Albumin Procalcitonin HIV 1&2 Ab/P24 Ag 4thGn Ur Strep pneumoniae Ag 03/19/24 03/19/24 03/19/24 09:32 11:23 11:31 MCV MCH MCHC RDW Plt Count MPV Absolute Nucleated RBC Nucleated RBC % (auto) O2 Saturation 90.0 ABG pH at Pt Temp 7.30 L ABG pCO2 at Pt Temp 85 H* ABG pO2 at Pt Temp 66 L ABG HCO3 42 H ABG Base Excess (Actual) 11.2 VBG pH VBG pCO2 VBG pO2 VBG HCO3 VBG O2 Saturation VBG Base Excess Anion Gap Estim Creat Clear Calc Estimated GFR POC Glucose 169 H 188 H Random Glucose Fasting Glucose Calcium Total Bilirubin AST ALT Alkaline Phosphatase B-Natriuretic Peptide Total Protein Albumin Procalcitonin HIV 1&2 Ab/P24 Ag 4thGn Ur Strep pneumoniae Ag Assessment and Plan (1) Respiratory failure with hypoxia and hypercapnia: Status: Acute (2) Pneumonia: Status: Acute (3) Acute respiratory failure with hypercapnia: Status: Acute Plan d5 for 63yo M resident of [facility] with TBI, schizophrenia, seizure disorder, COPD not on O2 sent in with dyspnea + hypoxia, admitted for COPD exacerbation with hypoxia + hypercarbia transferred to ICU 03/15 for BiPAP but refused it, transferred to telemetry unit 03/16 acute/chronic hypoxic/hypercapnic respiratory failure due to COPD exacerbation + pneumonia - continue steroids, nebs, levofloxacin, doxycycline - MRSA negative, pneumococcal urine antigen negative, Legionella pending, HIV negative, procalcitonin low - will give another dose of acetazolamide now - now on BiPAP, transfer to ICU for monitoring given respiratory acidosis - goal SaO2 no greater than 92% given hypercarbia - TTE 03/16/24: - Normal left ventricular size and systolic function. There is mildly increased left ventricular wall thickness. The visually estimated ejection fraction is between 60-65%. - E/E prime ratio is between 8 and 15 consistent with indeterminate filling pressures. - Mildly increased right ventricular cavity size. There is normal right ventricular systolic function. - There is mild dilatation of the sinuses of Valsalva measuring 3.80 cm. DM2 - basal-bolus insulin HTN - propranolol seizure disorder - topiramate schizoaffective disorder - trazodone, lithium, lorazepam VTE prophylaxis - enoxaparin dispo - eventual return to [facility] In my clinical judgment, the patient requires continued inpatient hospitalization for the following reasons: IV ABX, hypercarbic resp failure Total time managing care of this patient today: 50 minutes. Quality Stroke Does the patient have a stroke diagnosis?: No VTE Prior VTE?: No VTE Risk Level:: Medical - moderate - high VTE Device Contraindication: Treatment Not Indicated VTE Drug Contraindication: N/A - Med Ordered
[2024-03-19] MEDS: Albuterol/Iprat 2.5/0.5MG 3 ML AMPUL.NEB INHALE ×2 (12:53→20:47)
[2024-03-19] MEDS: dexmedeTOMIDidine HCL/NS 400 MCG/100 ML INFUS..BTL 42.75 MCG IVCONT (12:55)
--- NOTE | 2024-03-19 13:00 | PM.CCN ---
Critical Care Event Note Summary Date of Service: 03/19/24 Code activated: No Narrative: Patient with on-going CO2 retention despite BiPAP support and also with increased agitation taken off his BiPAP despite maximum rate of Precedex drip requiring emergent intubation for acute hypercapnic respiratory failure. Critical Care Time (minutes): 45
[2024-03-19 13:47] LABS: ABG HCO3 42 mmol/L (22-26); ABG pCO2 77 mmHg (32-45); ABG pH 7.34 (7.35-7.45); ABG pO2 58 mmHg (83-108)
[2024-03-19 14:16] LABS: ABG Refer to POC result
[2024-03-19 14:18] LABS: ABG Refer to POC result
[2024-03-19] MEDS: propofoL 200 MG/20 ML VIAL 100 MG IVPUSH (14:25)
[2024-03-19] MEDS: Cisatracurium Besylate 20 MG/10 ML VIAL IVPUSH (14:28)
[2024-03-19] MEDS: propofoL 1,000 MG/100 ML VIAL 20.52 MG IVCONT (14:28)
--- NOTE | 2024-03-19 14:29 | MHC.CM.PN ---
Addendum entered by Kierra Rae 03/19/24 14:39: Per conversion w/[facility] RN Cynthia: Pt is listed as FULL CODE at the facility Original Note: Pt transferred to ICU for worsening ABG's despite Bipap. Combative and required Precedex for behavior management. Pt is a LTC resident from [facility] and will return when medically stable via BLS. CM to follow
[2024-03-19] MEDS: Norepinephrine Bitartrate/D5W 8 MG/250 ML PLAST..BAG 10.69 MG IVCONT (14:30)
--- NOTE | 2024-03-19 14:40 | PC.RT ---
Pt had hypercarbia and respiratory acidosis on bipap w/o significant improvement. Pt was uncooperative to bipap mask and MD ordered to intubate pt per code status. Pt control intubated in the ICU by MD w/o difficultly. 7.5 ETT 26 cm @lip. Tube confirmed w./ colormetric, bilateral breath sounds and chest rise, condensation, and CXR. Pt placed on mechanical ventilation ACPC settings as documented. Will repeat ABG as ordered and continue to monitor.
--- NOTE | 2024-03-19 14:46 | W.PM.CCHP ---
Procedures Date of Service Date of Service: 03/19/24 Intubation Intubation Comments: Emergently intubated for acute hypercapnic respiratory failure noncompliant with BiPAP therapy with 7.5 cuffed ET tube under glide scope guidance with no immediate complications. ET tube position verified on chest x-ray. Consent for Procedure: Emergent-no informed consent obtained Sedative: propofol Mg given: 100
[2024-03-19 15:13] LABS: ABG Base Excess 14.2 mmol/L; ABG HCO3 39 mmol/L (22-26); ABG pCO2 50 mmHg (32-45); ABG pO2 111 mmHg (83-108)
[2024-03-19] MEDS: levoFLOXacin 750 MG TABLET PO (17:43)
[2024-03-19] MEDS: propofoL 1,000 MG/100 ML VIAL 34.2 MG IVCONT ×3 (17:43→23:18)
[2024-03-19] MEDS: Chlorhexidine Gluc Oral Rinse 15 ML MOUTHWASH BUCCAL ×2 (17:43→20:20)
[2024-03-19 17:54] LABS: Glucose, Whole Blood 162 mg/dL (60-115)
--- NOTE | 2024-03-19 18:10 | PC.NURSE ---
Assumed care at approx 0915- Pt. drowsy, arouses to loud repeated verbal stimuli, AO to self only. Pt. occasionally answers questions and follows commands, but is resistive to care and combative at times. Frequently pulling at tubes/wires. 1:[address] for pt[address] safety[address] Pt. on 2L NC, O2 88-92%, RR 12-18, respirations even and unlabored. At approx 0956, pt. Cyanotic, shallow respirations, O2 sat 50s. MD, RT, and monorail charger operator called to bedside. Responsive to sternal rub. O2 titrated to maintain O2 sat 88-92%. Pt. placed on bipap per MD. Pt. unable to tolerate bipap, continuously pulling off mask- PRN ativan given per APR with slight effect.? At Approx 1045 Pt. pulled off bipap, combative, refusing for bipap to be replaced. Pt. O2 sat 60s-70s. MD called to the bedside again. This RN discussed concern for pt. deterioration in respiratory status without bipap in place. VBG ordered by Hospitalist- see results. Hospitalist discussing ICU transfer with disability rater.RN able to replace bipap.?Pt. c/o full body itching, diffuse red rash. aware. PRN benadryl given per APR.? Pt. transferred to ICU by this RN and RT at approx 1245. This RN continues to care for Pt. in ICU. Pt. continues to pull at lines/remove bipap mask. Precedex gtt started and titrated per APR. 1:[address]. Repeat VBG done at approx 1345- see results.? Pt. continues to pull off bipap on max precedex rate. called to bedside-decision made by to intubate. MD, RT, and this RN at bedside- 100mg propofol IVP given per APR, pt. Intubated at 1426 with 7.5 ETT 26cm at the lip. Propofol gtt started per APR. Pt. dyssynchronous with vent- 20 mg Nimbex given per APR with good effect. SBPs 80s with MAPs <65- norepinephrine gtt started and titrated per APR. HR sustaining 50s-60s, MD aware. OGT placed by this RN, CXR obtained to confirm ETT and OGT placement- see report. Repeat ABG obtained post intubation- see results.? Pt. with no spontaneous void since approx 1000- pt. Bladder scanned at 1730 for 507 cc. MD notified, samuels placed per MD order with 500cc dark yellow output initially.? Currently pt. RASS -2/-3, tolerating vent on sedation. HR 61, O2 sat 95% on ACPC 16 16/8 40%, BP 131/60 (89). Q2 oral care and repositioning performed. B/L soft wrist restraints in place per MD order. Plan of care ongoing.
[2024-03-19 20:28] LABS: ABG Refer to POC result
[2024-03-19 20:28] LABS: ABG Refer to POC result
[2024-03-19] MEDS: Sennosides Oral Syrup 8.8 MG/5 ML PO (22:12)
[2024-03-19 23:44] LABS: Glucose, Whole Blood 129 mg/dL (60-115)
[2024-03-20] VITALS (44 sets, daily range): BP systolic 84–139; BP diastolic 42–71; PULSE 42–62; RESP 18–19; TEMP 34.3–38.7; O2SAT 92–98; BMI 31.8
[2024-03-20] MEDS: 0.9 % Sodium Chloride Flush 3 ML SYRINGE IVFLUSH ×3 (00:37→15:23)
[2024-03-20] MEDS: Doxycycline Hyclate 100 MG in 0.9 % Sodium Chloride 250 ML 166 MG IV (00:37)
[2024-03-20] MEDS: propofoL 1,000 MG/100 ML VIAL 34.2 MG IVCONT ×4 (01:50→10:43)
[2024-03-20] MEDS: Acetaminophen Oral Liquid 650 MG/20.3 ML SOLUTION PO (03:00)
[2024-03-20 04:53] LABS: VBG Base Excess 14.3 mmol/L; VBG HCO3 38 mmol/L (22-26); VBG pCO2 46 mmHg; VBG pH 7.53 (7.32-7.43); VBG pO2 76 mmHg
[2024-03-20 05:30] LABS: Basophils Percent Auto 0.2 % (0-2); Eosinophils Absolute Auto 0.3 X10*3/uL (0.0-0.4); Eosinophils Percent Auto 1.3 % (0-4); Hematocrit 41.8 % (42.0-52.0); Hemoglobin 12.6 g/dl (14.0-18.0); Imm Gran Abs Auto 0.22 X10*3/uL (0.00-0.03); Imm Gran Pct Auto 0.9 % (0.0-0.4); Lymphocytes Absolute Auto 1.2 X10*3/uL (1.2-4.9); Lymphocytes Percent Auto 4.7 % (20-40); MANUAL DIFF FLAG SCAN; Mean Corpuscular HGB Conc 30.1 g/dl (31.0-36.0); Mean Corpuscular Hemoglobin 28.9 pg (27.0-33.0); Mean Corpuscular Volume 95.9 fL (80.0-98.0); Mean Platelet Volume 10.3 fL (9.4-12.4); Monocytes Absolute Auto 1.5 X10*3/uL (0.1-1.2); Monocytes Percent Auto 5.7 % (2-11); Neutrophils Absolute Auto 22.5 x10*3/uL (2.0-8.3); Neutrophils Percent Auto 87.2 % (45-73); Platelet Count 205 X10*3/uL (160-400); Red Blood Count 4.36 X10*6/uL (4.60-5.80); Red Cell Distribution Width 14.4 % (11.0-16.0); SCAN SMEAR FLAG 1; White Blood Count 25.8 X10*3/uL (4.8-10.8)
[2024-03-20 05:47] LABS: Alanine Aminotransferase 16 U/L (0-40); Albumin Level 3.2 g/dL (3.5-5.0); Alkaline Phosphatase 87 U/L (39-117); Anion Gap 14 (12-20); Aspartate Amino Transferase 16 U/L (5-37); Bilirubin Total 0.6 mg/dL (0.0-1.0); Blood Urea Nitrogen 38 mg/dL (9-16); Calcium 8.7 mg/dL (8.4-10.2); Carbon Dioxide 32 mmol/L (22-29); Chloride 100 mmol/L (96-108); Creatinine Clr Calc Pharmacy 96.4; Estimated Glomerular Filt Rate > 60; Glucose Random 181 mg/dL (60-115); Magnesium 2.5 mg/dL (1.6-2.6); Phosphorus 0.9 mg/dL (2.7-4.5); Potassium 3.9 mmol/L (3.3-5.1); SLIDE REVIEW VERIFIED; Sodium 142 mmol/L (135-145); Total Protein 6.5 g/dL (6.5-8.0)
[2024-03-20] MEDS: Insulin Lispro 100 UNIT/ML 3 ML VIAL SUBCUT (06:06)
[2024-03-20] MEDS: Potassium Phosphate/NS 15 MMOL/250 ML PLAST..BAG 62.5 MMOL IV ×4 (06:28→20:12)
[2024-03-20] MEDS: Albuterol/Iprat 2.5/0.5MG 3 ML AMPUL.NEB INHALE ×3 (08:00→21:13)
[2024-03-20] MEDS: Chlorhexidine Gluc Oral Rinse 15 ML MOUTHWASH BUCCAL ×3 (08:03→20:16)
[2024-03-20] MEDS: Insulin Glargine,Hum.rec.anlog 100 UNIT/ML 10 ML VIAL 12 UNIT SUBCUT (08:04)
[2024-03-20] MEDS: Famotidine/PF 20 MG/2 ML VIAL IVPUSH (08:04)
[2024-03-20] MEDS: Enoxaparin Sodium 40 MG/0.4 ML SYRINGE SUBCUT (08:45)
--- NOTE | 2024-03-20 10:13 | PM.CCPN ---
Subjective Subjective Date of Service: 03/20/24 Interval History: 63-year-old gentleman with underlying diabetes mellitus, TBI, seizure disorder, COPD admitted on 03/15/2024 with dyspnea. Patient initially noted to be in respiratory acidosis that improved with application of BiPAP. Patient was titrated to nasal cannula, however he started to retain CO2 again and was admitted to intensive care unit for close monitoring. His respiratory viral panel was negative. CT angio chest showed evidence of pulmonary emboli, but some pulmonary edema. He was treated with diuretic with improvement in his blood gases and downgraded to telemetry victoria. Patient continued with intermittent CO2 retention and noncompliance with nocturnal BiPAP therapy resulting worsening CO2 retention requiring daytime BiPAP application. However, patient was not compliant with daytime BiPAP requiring intubation and ventilatory support. Critical Care Time (minutes): 45 Physical Exam Vital Signs: Vital Signs: Last Vital Signs Temp 100.2 F 03/20/24 09:00 Pulse 61 03/20/24 09:00 Resp 18 03/20/24 09:00 BP 121/58 L 03/20/24 09:00 Pulse Ox 97 03/20/24 09:00 O2 Del Method Mechanical Ventil ation 03/20/24 09:00 O2 Flow Rate 7 03/19/24 08:00 FiO2 35 03/20/24 09:00 Oxygen Flow Rate 11 03/18/24 15:30 BMI result Body Mass Index 31.8 Const: General: no acute distress and other (Sedated on ventilatory support) Eyes: Sclerae: sclerae normal EOM: EOMs intact bilaterally Neck: Neck: Yes no lymphadenopathy, Yes trachea midline and Yes supple Resp: Auscultation: clear to auscultation bilaterally Cardio: Rate: bradycardic Rhythm: regular rhythm Heart sounds: no gallops, no murmurs and no rubs GI: Palpation (GI): Soft to palpation and Other GI palpation findings present ( Nontender) Auscultation: normal bowel sounds Extrem: General: Yes no pedal edema, No clubbing and No cyanosis Objective Data Labs 03/20/24 04:47 03/20/24 04:47 Labs: Laboratory Results - last 24 hr 03/19/24 03/19/24 03/19/24 11:23 11:31 13:44 WBC RBC Hgb Hct MCV MCH MCHC RDW Plt Count MPV Immature Gran % (Auto) Neut % (Auto) Lymph % (Auto) [place] % (Auto) Eos % (Auto) Baso % (Auto) Lymph # (Auto) [place] # (Auto) Eos # (Auto) Baso # (Auto) Abs Immat Gran (auto) Absolute Neuts (auto) Absolute Nucleated RBC Nucleated RBC % (auto) Smear Tech's Comments O2 Saturation 90.0 86.0 ABG pH at Pt Temp 7.30 L 7.34 L ABG pCO2 at Pt Temp 85 H* 77 H* ABG pO2 at Pt Temp 66 L 58 L ABG HCO3 42 H 42 H ABG Base Excess (Actual) 11.2 13.0 VBG pH VBG pCO2 VBG pO2 VBG HCO3 VBG O2 Saturation VBG Base Excess Sodium Potassium Chloride Carbon Dioxide Anion Gap BUN Creatinine Estim Creat Clear Calc Estimated GFR POC Glucose 188 H Random Glucose Calcium Phosphorus Magnesium Total Bilirubin AST ALT Alkaline Phosphatase Total Protein Albumin 03/19/24 03/19/24 03/19/24 15:08 17:50 23:41 WBC RBC Hgb Hct MCV MCH MCHC RDW Plt Count MPV Immature Gran % (Auto) Neut % (Auto) Lymph % (Auto) [place] % (Auto) Eos % (Auto) Baso % (Auto) Lymph # (Auto) [place] # (Auto) Eos # (Auto) Baso # (Auto) Abs Immat Gran (auto) Absolute Neuts (auto) Absolute Nucleated RBC Nucleated RBC % (auto) Smear Tech's Comments O2 Saturation 100.0 ABG pH at Pt Temp 7.50 H ABG pCO2 at Pt Temp 50 H ABG pO2 at Pt Temp 111 H ABG HCO3 39 H ABG Base Excess (Actual) 14.2 VBG pH VBG pCO2 VBG pO2 VBG HCO3 VBG O2 Saturation VBG Base Excess Sodium Potassium Chloride Carbon Dioxide Anion Gap BUN Creatinine Estim Creat Clear Calc Estimated GFR POC Glucose 162 H 129 H Random Glucose Calcium Phosphorus Magnesium Total Bilirubin AST ALT Alkaline Phosphatase Total Protein Albumin 03/20/24 03/20/24 04:47 04:49 WBC 25.8 H RBC 4.36 L Hgb 12.6 L Hct 41.8 L MCV 95.9 MCH 28.9 MCHC 30.1 L RDW 14.4 Plt Count 205 MPV 10.3 Immature Gran % (Auto) 0.9 H Neut % (Auto) 87.2 H Lymph % (Auto) 4.7 L [place] % (Auto) 5.7 Eos % (Auto) 1.3 Baso % (Auto) 0.2 Lymph # (Auto) 1.2 [place] # (Auto) 1.5 H Eos # (Auto) 0.3 Baso # (Auto) 0.0 Abs Immat Gran (auto) 0.22 H Absolute Neuts (auto) 22.5 H Absolute Nucleated RBC 0.000 Nucleated RBC % (auto) 0.0 Smear Tech's Comments VERIFIED O2 Saturation ABG pH at Pt Temp ABG pCO2 at Pt Temp ABG pO2 at Pt Temp ABG HCO3 ABG Base Excess (Actual) VBG pH 7.53 H VBG pCO2 46 VBG pO2 76 VBG HCO3 38 H VBG O2 Saturation 97.0 VBG Base Excess 14.3 Sodium 142 Potassium 3.9 Chloride 100 Carbon Dioxide 32 H Anion Gap 14 BUN 38 H Creatinine 0.99 Estim Creat Clear Calc 96.4 Estimated GFR > 60 POC Glucose Random Glucose 181 H Calcium 8.7 Phosphorus 0.9 L* Magnesium 2.5 Total Bilirubin 0.6 AST 16 ALT 16 Alkaline Phosphatase 87 Total Protein 6.5 Albumin 3.2 L Microbiology Microbiology Results: Microbiology 03/14/24 17:45 Blood - Venous Blood Culture - Final No growth after 5 days. 03/14/24 17:45 Blood - Venous Blood Culture - Final No growth after 5 days. Progress Note: A&P Assessment and plan (1) Acute respiratory failure with hypercapnia: Status: Acute (2) COPD (chronic obstructive pulmonary disease): Status: Acute Plan Assessment: 63-year-old gentleman with acute on chronic hypercapnic respiratory failure requiring ventilatory support Plan: Neuro: No acute issues. Underlying TBI. Cardiac: No acute issues. Pulmonary: Acute hypercapnic respiratory failure requiring ventilatory support. Continue to titrate off as tolerated. Renal: No acute issues. Endo: No acute issues. GI: No acute issues. ID: No acute issues Heme/Onc: No acute issues. Psych: No acute issues. Miscellaneous: No acute issues. Prophylaxis: Heparin, famotidine Diet: Tube feeds Critical care time spent: 45 minute Quality Stroke Does the patient have a stroke diagnosis?: No VTE Prior VTE?: No VTE Risk Level:: Medical - moderate - high VTE Device Contraindication: Treatment Not Indicated VTE Drug Contraindication: N/A - Med Ordered
[2024-03-20] MEDS: fentaNYL citrate/NS 1,000 MCG/100 ML PLAST..BAG 2.5 MCG IVCONT (10:40)
[2024-03-20 11:34] LABS: Glucose, Whole Blood 115 mg/dL (60-115)
[2024-03-20 12:23] LABS: Venous Blood Gas Refer to POC result
[2024-03-20] MEDS: propofoL 1,000 MG/100 ML VIAL 27.36 MG IVCONT ×4 (13:05→23:36)
[2024-03-20 17:27] LABS: Glucose, Whole Blood 113 mg/dL (60-115)
--- NOTE | 2024-03-20 19:41 | PC.NURSE ---
patient continues to be sedated and intubated, on pressors see MAR, Fentanyl started and Propofol titrated, see MAR. HR decreased to low of 38, MD aware no new orders, asmuels patient and draining. OG tube clamped.
[2024-03-20] MEDS: Norepinephrine Bitartrate/D5W 8 MG/250 ML PLAST..BAG 4.28 MG IVCONT (20:14)
[2024-03-20] MEDS: Lithium Carbonate 300 MG CAPSULE PO (20:20)
[2024-03-20] MEDS: Lithium Carbonate 300 MG TABLET 150 MG PO (20:21)
[2024-03-20 23:56] LABS: Glucose, Whole Blood 119 mg/dL (60-115)
[2024-03-21] VITALS (39 sets, daily range): BP systolic 102–146; BP diastolic 47–66; PULSE 44–62; RESP 15–19; TEMP 34.7–37.7; O2SAT 94–98; BMI 31.7
[2024-03-21] MEDS: 0.9 % Sodium Chloride Flush 3 ML SYRINGE IVFLUSH ×4 (00:31→23:22)
[2024-03-21] MEDS: propofoL 1,000 MG/100 ML VIAL 27.36 MG IVCONT ×6 (02:49→20:01)
--- NOTE | 2024-03-21 04:38 | PC.NURSE ---
Patient intubated on ventilator. Sedated with propofol and fentanyl. Remained on low dose of levophed. Patient sinus bradycardia on telemetry, Rupesh Garcia NP aware. Promote tube feeding started at 11:00 pm, currently infusing at 30ml/hr, goal is 50ml/hr.
[2024-03-21 05:12] LABS: VBG HCO3 35 mmol/L (22-26); VBG pCO2 50 mmHg; VBG pH 7.45 (7.32-7.43); VBG pO2 65 mmHg
[2024-03-21 05:15] LABS: MANUAL DIFF FLAG NO
[2024-03-21 05:18] LABS: Basophils Percent Auto 0.2 % (0-2); Eosinophils Absolute Auto 0.8 X10*3/uL (0.0-0.4); Eosinophils Percent Auto 5.4 % (0-4); Hematocrit 40.4 % (42.0-52.0); Hemoglobin 12.4 g/dl (14.0-18.0); Imm Gran Abs Auto 0.13 X10*3/uL (0.00-0.03); Imm Gran Pct Auto 0.9 % (0.0-0.4); Lymphocytes Absolute Auto 1.7 X10*3/uL (1.2-4.9); Lymphocytes Percent Auto 11.6 % (20-40); Mean Corpuscular HGB Conc 30.7 g/dl (31.0-36.0); Mean Corpuscular Hemoglobin 29.1 pg (27.0-33.0); Mean Corpuscular Volume 94.8 fL (80.0-98.0); Mean Platelet Volume 9.8 fL (9.4-12.4); Monocytes Absolute Auto 0.9 X10*3/uL (0.1-1.2); Monocytes Percent Auto 6.1 % (2-11); Neutrophils Absolute Auto 10.8 x10*3/uL (2.0-8.3); Neutrophils Percent Auto 75.8 % (45-73); Platelet Count 159 X10*3/uL (160-400); Red Blood Count 4.26 X10*6/uL (4.60-5.80); Red Cell Distribution Width 14.9 % (11.0-16.0); White Blood Count 14.2 X10*3/uL (4.8-10.8)
[2024-03-21 05:34] LABS: Anion Gap 11 (12-20); Blood Urea Nitrogen 31 mg/dL (9-16); Calcium 8.2 mg/dL (8.4-10.2); Carbon Dioxide 32 mmol/L (22-29); Chloride 104 mmol/L (96-108); Creatinine Clr Calc Pharmacy 96.4; Estimated Glomerular Filt Rate > 60; Glucose Random 173 mg/dL (60-115); Magnesium 2.6 mg/dL (1.6-2.6); Phosphorus 3.6 mg/dL (2.7-4.5); Potassium 3.4 mmol/L (3.3-5.1); Sodium 144 mmol/L (135-145)
[2024-03-21] MEDS: Insulin Lispro 100 UNIT/ML 3 ML VIAL SUBCUT ×4 (06:18→23:31)
[2024-03-21] MEDS: Potassium Chloride Packet 20 MEQ PACKET 40 MEQ PO (06:19)
[2024-03-21 06:39] LABS: Venous Blood Gas Refer to POC result
[2024-03-21] MEDS: Albuterol/Iprat 2.5/0.5MG 3 ML AMPUL.NEB INHALE ×3 (07:49→20:21)
[2024-03-21] MEDS: Chlorhexidine Gluc Oral Rinse 15 ML MOUTHWASH BUCCAL ×3 (08:04→20:23)
[2024-03-21] MEDS: Lithium Carbonate 300 MG CAPSULE PO ×2 (08:04→20:25)
[2024-03-21] MEDS: Lithium Carbonate 300 MG TABLET 150 MG PO ×2 (08:05→20:25)
[2024-03-21] MEDS: Famotidine/PF 20 MG/2 ML VIAL IVPUSH (08:06)
[2024-03-21] MEDS: Insulin Glargine,Hum.rec.anlog 100 UNIT/ML 10 ML VIAL 12 UNIT SUBCUT (08:06)
[2024-03-21] MEDS: Enoxaparin Sodium 40 MG/0.4 ML SYRINGE SUBCUT (09:30)
--- NOTE | 2024-03-21 10:07 | P.PNCC_ITS ---
Subjective Subjective Date of Service: 03/21/24 Interval History: 63-year-old gentleman with underlying diabetes mellitus, TBI, seizure disorder, COPD admitted on 03/15/2024 with dyspnea. Patient initially noted to be in respiratory acidosis that improved with application of BiPAP. Patient was titrated to nasal cannula, however he started to retain CO2 again and was admitted to intensive care unit for close monitoring. His respiratory viral panel was negative. CT angio chest showed evidence of pulmonary emboli, but some pulmonary edema. He was treated with diuretic with improvement in his blood gases and downgraded to telemetry victoria. Patient continued with intermittent CO2 retention and noncompliance with nocturnal BiPAP therapy resulting worsening CO2 retention requiring daytime BiPAP application. However, patient was not compliant with daytime BiPAP requiring intubation and ventilatory support. No events overnight. Critical Care Time (minutes): 45 Physical Exam 2 Vital Signs: Vital Signs: Last Vital Signs Temp 98.6 F 03/21/24 09:00 Pulse 59 03/21/24 09:00 Resp 18 03/21/24 09:00 BP 140/62 H 03/21/24 09:00 Pulse Ox 95 03/21/24 09:00 O2 Del Method Mechanical Ventil ation 03/21/24 09:00 O2 Flow Rate 7 03/19/24 08:00 FiO2 35 03/21/24 09:00 Oxygen Flow Rate 11 03/18/24 15:30 BMI result Body Mass Index 31.7 Const: General: no acute distress and other (Sedated on the vent) N utritional Appearance: obese Eyes: Sclerae: sclerae normal EOM: EOMs intact bilaterally Neck: Neck: Yes no lymphadenopathy, Yes trachea midline and Yes supple Resp: Auscultation: clear to auscultation bilaterally Cardio: Rate: bradycardic Rhythm: regular rhythm Heart sounds: no gallops, no murmurs and no rubs GI: Palpation (GI): Soft to palpation and Other GI palpation findings present ( Nontender) Auscultation: normal bowel sounds Extrem: General: Yes no pedal edema, No clubbing and No cyanosis Objective Data Labs 03/21/24 05:06 03/21/24 05:06 Labs: Laboratory Results - last 24 hr 03/20/24 03/20/24 03/20/24 11:29 17:23 23:53 WBC RBC Hgb Hct MCV MCH MCHC RDW Plt Count MPV Immature Gran % (Auto) Neut % (Auto) Lymph % (Auto) [place] % (Auto) Eos % (Auto) Baso % (Auto) Lymph # (Auto) [place] # (Auto) Eos # (Auto) Baso # (Auto) Abs Immat Gran (auto) Absolute Neuts (auto) Absolute Nucleated RBC Nucleated RBC % (auto) VBG pH VBG pCO2 VBG pO2 VBG HCO3 VBG O2 Saturation VBG Base Excess Sodium Potassium Chloride Carbon Dioxide Anion Gap BUN Creatinine Estim Creat Clear Calc Estimated GFR POC Glucose 115 113 119 H Random Glucose Calcium Phosphorus Magnesium Albumin 03/21/24 03/21/24 05:06 05:08 WBC 14.2 H RBC 4.26 L Hgb 12.4 L Hct 40.4 L MCV 94.8 MCH 29.1 MCHC 30.7 L RDW 14.9 Plt Count 159 L MPV 9.8 Immature Gran % (Auto) 0.9 H Neut % (Auto) 75.8 H Lymph % (Auto) 11.6 L [place] % (Auto) 6.1 Eos % (Auto) 5.4 H Baso % (Auto) 0.2 Lymph # (Auto) 1.7 [place] # (Auto) 0.9 Eos # (Auto) 0.8 H Baso # (Auto) 0.0 Abs Immat Gran (auto) 0.13 H Absolute Neuts (auto) 10.8 H Absolute Nucleated RBC 0.000 Nucleated RBC % (auto) 0.0 VBG pH 7.45 H VBG pCO2 50 VBG pO2 65 VBG HCO3 35 H VBG O2 Saturation 91.0 VBG Base Excess 10.0 Sodium 144 Potassium 3.4 Chloride 104 Carbon Dioxide 32 H Anion Gap 11 L BUN 31 H Creatinine 0.99 Estim Creat Clear Calc 96.4 Estimated GFR > 60 POC Glucose Random Glucose 173 H Calcium 8.2 L Phosphorus 3.6 Magnesium 2.6 Albumin 3.0 L Microbiology Microbiology Results: Microbiology 03/14/24 17:45 Blood - Venous Blood Culture - Final No growth after 5 days. 03/14/24 17:45 Blood - Venous Blood Culture - Final No growth after 5 days. Progress Note: A&P Assessment and plan (1) Acute respiratory failure with hypercapnia: Status: Acute (2) COPD (chronic obstructive pulmonary disease): Status: Acute (3) TBI (traumatic brain injury): Status: Acute (4) Leukocytosis: Status: Acute Plan Assessment: 63-year-old gentleman with acute on chronic hypercapnic respiratory failure requiring ventilatory support Plan: Neuro: No acute issues. Underlying TBI. Continue lithium, unable to crush topiramate. Cardiac: No acute issues. Pulmonary: Acute hypercapnic respiratory failure requiring ventilatory support. Continue to titrate off as tolerated. Renal: No acute issues. Endo: No acute issues. GI: No acute issues. ID: Leukocytosis is improving. Cultures negative to date. Continue to monitor off antibiotics. Heme/Onc: No acute issues. Psych: No acute issues. Miscellaneous: No acute issues. Prophylaxis: Heparin, famotidine Diet: Tube feeds Critical care time spent: 45 minute Quality Stroke Does the patient have a stroke diagnosis?: No VTE Prior VTE?: No VTE Risk Level:: Medical - moderate - high VTE Device Contraindication: Treatment Not Indicated VTE Drug Contraindication: N/A - Med Ordered
[2024-03-21 11:51] LABS: Glucose, Whole Blood 161 mg/dL (60-115)
[2024-03-21] MEDS: fentaNYL citrate/NS 1,000 MCG/100 ML PLAST..BAG 2.5 MCG IVCONT (14:50)
[2024-03-21 17:40] LABS: Glucose, Whole Blood 164 mg/dL (60-115)
--- NOTE | 2024-03-21 18:48 | PC.NURSE ---
patient continues to be intubated and sedated, asynchrony noted and sedation adjusted, see APR. 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 tube feeds increased to goal of 50ml/hr, residual at 10ml or less this shift.
[2024-03-21] MEDS: propofoL 1,000 MG/100 ML VIAL 34.2 MG IVCONT (23:22)
[2024-03-21 23:30] LABS: Glucose, Whole Blood 192 mg/dL (60-115)
[2024-03-22] VITALS (39 sets, daily range): BP systolic 85–137; BP diastolic 40–61; PULSE 51–70; RESP 18–20; TEMP 34.6–38.3; O2SAT 87–98; BMI 31.7
[2024-03-22] MEDS: propofoL 1,000 MG/100 ML VIAL 34.2 MG IVCONT ×4 (01:33→09:46)
[2024-03-22 05:47] LABS: Glucose, Whole Blood 189 mg/dL (60-115)
[2024-03-22] MEDS: Insulin Lispro 100 UNIT/ML 3 ML VIAL SUBCUT ×2 (05:50→11:42)
[2024-03-22] MEDS: fentaNYL citrate/NS 1,000 MCG/100 ML PLAST..BAG 10 MCG IVCONT ×2 (05:52→14:32)
[2024-03-22] MEDS: Albuterol/Iprat 2.5/0.5MG 3 ML AMPUL.NEB INHALE ×2 (07:18→13:01)
[2024-03-22] MEDS: 0.9 % Sodium Chloride Flush 3 ML SYRINGE IVFLUSH ×3 (08:01→23:14)
[2024-03-22] MEDS: Lithium Carbonate 300 MG CAPSULE PO ×2 (08:01→20:10)
[2024-03-22] MEDS: Enoxaparin Sodium 40 MG/0.4 ML SYRINGE SUBCUT (08:01)
[2024-03-22] MEDS: Chlorhexidine Gluc Oral Rinse 15 ML MOUTHWASH BUCCAL ×3 (08:01→20:09)
[2024-03-22] MEDS: Insulin Glargine,Hum.rec.anlog 100 UNIT/ML 10 ML VIAL 12 UNIT SUBCUT (08:01)
[2024-03-22] MEDS: Lithium Carbonate 300 MG TABLET 150 MG PO ×2 (08:01→20:10)
[2024-03-22] MEDS: Famotidine/PF 20 MG/2 ML VIAL IVPUSH (08:01)
[2024-03-22 09:14] LABS: MANUAL DIFF FLAG NO
[2024-03-22 09:15] LABS: Basophils Percent Auto 0.2 % (0-2); Eosinophils Absolute Auto 0.6 X10*3/uL (0.0-0.4); Eosinophils Percent Auto 5.3 % (0-4); Hemoglobin 13.2 g/dl (14.0-18.0); Imm Gran Pct Auto 0.9 % (0.0-0.4); Lymphocytes Absolute Auto 1.2 X10*3/uL (1.2-4.9); Lymphocytes Percent Auto 10.5 % (20-40); Mean Corpuscular Hemoglobin 29.7 pg (27.0-33.0); Mean Corpuscular Volume 98.9 fL (80.0-98.0); Mean Platelet Volume 10.3 fL (9.4-12.4); Monocytes Absolute Auto 0.6 X10*3/uL (0.1-1.2); Monocytes Percent Auto 5.3 % (2-11); Neutrophils Absolute Auto 8.5 x10*3/uL (2.0-8.3); Neutrophils Percent Auto 77.8 % (45-73); Platelet Count 134 X10*3/uL (160-400); Red Blood Count 4.45 X10*6/uL (4.60-5.80); Red Cell Distribution Width 14.8 % (11.0-16.0)
[2024-03-22 09:18] LABS: Venous Blood Gas Refer to POC result
[2024-03-22 09:19] LABS: VBG Base Excess 11.8 mmol/L; VBG HCO3 39 mmol/L (22-26); VBG pCO2 61 mmHg; VBG pH 7.41 (7.32-7.43); VBG pO2 48 mmHg
[2024-03-22 09:32] LABS: Alanine Aminotransferase 22 U/L (0-40); Alkaline Phosphatase 76 U/L (39-117); Anion Gap 10 (12-20); Aspartate Amino Transferase 24 U/L (5-37); Bilirubin Total 0.6 mg/dL (0.0-1.0); Blood Urea Nitrogen 23 mg/dL (9-16); Calcium 8.4 mg/dL (8.4-10.2); Carbon Dioxide 32 mmol/L (22-29); Chloride 107 mmol/L (96-108); Creatinine Clr Calc Pharmacy 109.5; Estimated Glomerular Filt Rate > 60; Glucose Random 190 mg/dL (60-115); Magnesium 2.7 mg/dL (1.6-2.6); Phosphorus 3.7 mg/dL (2.7-4.5); Potassium 3.8 mmol/L (3.3-5.1); Sodium 145 mmol/L (135-145); Total Protein 6.3 g/dL (6.5-8.0)
[2024-03-22] MEDS: polyethylene glycoL 3350 17 GM POWD.PACK PO (09:46)
[2024-03-22] MEDS: bisacodyL 10 MG SUPP.RECT PR (09:46)
[2024-03-22 11:25] LABS: Glucose, Whole Blood 156 mg/dL (60-115)
[2024-03-22] MEDS: propofoL 1,000 MG/100 ML VIAL 27.36 MG IVCONT ×4 (11:52→22:36)
--- NOTE | 2024-03-22 12:11 | MHC.CLN ---
PT REQUIRES TF FOR NUTRITION SUPPORT R/T PROLONGED NPO STATUS PT IS INTUBATED AND SEDATED PT RECEIVING PROMOTE AT 50ML/HR PROVIDES 1200KCALS (2103KCALS WITH SEDATION; 23KCALS/KG), 75G PROTEIN (.8G/KG), 1007ML FREE WATER FROM FORMULA RECOMMEND ADDING 240ML FREE WATER FLUSHES Q 6 HRS TO PROVIDE 1967ML TOTAL FREE WATER FROM FORMULA AND FLUSHES (23ML/KG) MONITOR TOLERANCE AND LYTES SEE ALSO FULL CLINICAL NUTRITION ASSESSMENT
--- NOTE | 2024-03-22 14:49 | MHC.CM.PN ---
Pt transferred to ICU for worsening respiratory function in the setting of non compliance with BiPAP. Intubated: Pt is a L[facility] resident [facility]: HCP completed in [place] from 2011 in chart: lists his sister Tran as his agent. No plans to wean today: clinical updates sent to [facility] Jan[facility]
--- NOTE | 2024-03-22 16:44 | P.PNCC_ITS ---
Subjective Subjective Date of Service: 03/22/24 Critical Care Time (minutes): 35 Comment: Remains on ventilator support this morning No new events overnight Had rashes from vancomycin which is improving Physical Exam 2 Vital Signs: Vital Signs: Last Vital Signs Temp 100.2 F 03/22/24 16:00 Pulse 64 03/22/24 16:00 Resp 18 03/22/24 16:00 BP 111/53 L 03/22/24 16:00 Pulse Ox 90 L 03/22/24 15:18 O2 Del Method Mechanical Ventil ation 03/22/24 16:00 O2 Flow Rate 7 03/19/24 08:00 FiO2 25 03/22/24 16:00 Oxygen Flow Rate 11 03/18/24 15:30 BMI result Body Mass Index 31.7 General: In somewhat acute distress, ill appearing and tired appearing Nutritional Appearance: well nourished and overweight Eyes: appearance normal, both eyes and all related structures; Alignment and Position: alignment normal and position normal Neck: No lymphadenopathy, no thyromegaly Resp: bilateral air entry equal, occasional added sounds present Cardio: Regular rate, regular rhythm; Heart sounds: S1 normal heart sound present and S2 normal heart sound present GI: soft, nontender, no guarding, no hepatosplenomegaly : bladder normal to inspection, bladder normal to palpation, no renal angle tenderness Skin: no rashes or lesions noted and elasticity normal Neuro: Sedated, not following any commands Objective Data Labs 03/22/24 09:08 03/22/24 09:08 Labs: Laboratory Results - last 24 hr 03/18/24 03/18/24 03/18/24 06:55 07:33 10:50 WBC 25.3 H RBC 4.87 Hgb 14.2 Hct 46.6 MCV 95.7 MCH 29.2 MCHC 30.5 L RDW 14.1 Plt Count 198 MPV 10.2 Immature Gran % (Auto) Cancelled Neut % (Auto) Cancelled Lymph % (Auto) Cancelled [place] % (Auto) Cancelled Eos % (Auto) Cancelled Baso % (Auto) Cancelled Lymph # (Auto) Cancelled [place] # (Auto) Cancelled Eos # (Auto) Cancelled Baso # (Auto) Cancelled Abs Immat Gran (auto) Cancelled Absolute Neuts (auto) Cancelled Absolute Nucleated RBC 0.000 Nucleated RBC % (auto) 0.0 Neutrophils % (Manual) 93 H Band Neutrophils % 3 Lymphocytes % (Manual) 4 L Abs Neuts (Manual) 24.3 H Lymphocytes # (Manual) 1.0 L Platelet Estimate NORMAL Plt Morphology Comment NORMAL RBC Morphology NORMAL Smear Tech's Comments MANUAL DIFF O2 Saturation ABG pH at Pt Temp ABG pCO2 at Pt Temp ABG pO2 at Pt Temp ABG HCO3 ABG Base Excess (Actual) VBG pH VBG pCO2 VBG pO2 VBG HCO3 VBG O2 Saturation VBG Base Excess Sodium Potassium Chloride Carbon Dioxide Anion Gap BUN Creatinine Estim Creat Clear Calc Estimated GFR POC Glucose 172 H 170 H Random Glucose Fasting Glucose Calcium Phosphorus Magnesium Total Bilirubin AST ALT Alkaline Phosphatase B-Natriuretic Peptide Total Protein Albumin Procalcitonin HIV 1&2 Ab/P24 Ag 4thGn 03/18/24 03/18/24 03/18/24 14:12 14:18 15:16 WBC RBC Hgb Hct MCV MCH MCHC RDW Plt Count MPV Immature Gran % (Auto) Neut % (Auto) Lymph % (Auto) [place] % (Auto) Eos % (Auto) Baso % (Auto) Lymph # (Auto) [place] # (Auto) Eos # (Auto) Baso # (Auto) Abs Immat Gran (auto) Absolute Neuts (auto) Absolute Nucleated RBC Nucleated RBC % (auto) Neutrophils % (Manual) Band Neutrophils % Lymphocytes % (Manual) Abs Neuts (Manual) Lymphocytes # (Manual) Platelet Estimate Plt Morphology Comment RBC Morphology Smear Tech's Comments O2 Saturation ABG pH at Pt Temp ABG pCO2 at Pt Temp ABG pO2 at Pt Temp ABG HCO3 ABG Base Excess (Actual) VBG pH 7.33 VBG pCO2 87 VBG pO2 44 VBG HCO3 46 H VBG O2 Saturation 74.0 VBG Base Excess 15.5 Sodium 141 Potassium 4.6 Chloride 96 Carbon Dioxide 38 H Anion Gap 12 BUN 31 H Creatinine 1.02 Estim Creat Clear Calc 95.5 Estimated GFR > 60 POC Glucose 122 H Random Glucose 136 H Fasting Glucose Calcium 9.2 D Phosphorus Magnesium Total Bilirubin AST ALT Alkaline Phosphatase B-Natriuretic Peptide Total Protein Albumin Procalcitonin 0.09 HIV 1&2 Ab/P24 Ag 4thGn 03/18/24 03/19/24 03/19/24 21:29 06:11 06:12 WBC 25.6 H RBC 4.68 Hgb 13.8 L Hct 46.3 MCV 98.9 H MCH 29.5 MCHC 29.8 L RDW 14.1 Plt Count 197 MPV 10.4 Immature Gran % (Auto) Neut % (Auto) Lymph % (Auto) [place] % (Auto) Eos % (Auto) Baso % (Auto) Lymph # (Auto) [place] # (Auto) Eos # (Auto) Baso # (Auto) Abs Immat Gran (auto) Absolute Neuts (auto) Absolute Nucleated RBC 0.000 Nucleated RBC % (auto) 0.0 Neutrophils % (Manual) Band Neutrophils % Lymphocytes % (Manual) Abs Neuts (Manual) Lymphocytes # (Manual) Platelet Estimate Plt Morphology Comment RBC Morphology Smear Tech's Comments O2 Saturation ABG pH at Pt Temp ABG pCO2 at Pt Temp ABG pO2 at Pt Temp ABG HCO3 ABG Base Excess (Actual) VBG pH VBG pCO2 VBG pO2 VBG HCO3 VBG O2 Saturation VBG Base Excess Sodium 143 Potassium 4.2 Chloride 95 L Carbon Dioxide 38 H Anion Gap 14 BUN 35 H Creatinine 0.98 Estim Creat Clear Calc 99.4 Estimated GFR > 60 POC Glucose 171 H Random Glucose 146 H Fasting Glucose 147 H Calcium 8.6 D Phosphorus Magnesium Total Bilirubin 0.4 AST 18 ALT 32 Alkaline Phosphatase 117 B-Natriuretic Peptide 64 Total Protein 7.4 Albumin 3.6 Procalcitonin 0.07 HIV 1&2 Ab/P24 Ag 4thGn Nonreactive 03/19/24 03/19/24 03/19/24 07:27 08:24 09:32 WBC RBC Hgb Hct MCV MCH MCHC RDW Plt Count MPV Immature Gran % (Auto) Neut % (Auto) Lymph % (Auto) [place] % (Auto) Eos % (Auto) Baso % (Auto) Lymph # (Auto) [place] # (Auto) Eos # (Auto) Baso # (Auto) Abs Immat Gran (auto) Absolute Neuts (auto) Absolute Nucleated RBC Nucleated RBC % (auto) Neutrophils % (Manual) Band Neutrophils % Lymphocytes % (Manual) Abs Neuts (Manual) Lymphocytes # (Manual) Platelet Estimate Plt Morphology Comment RBC Morphology Smear Tech's Comments O2 Saturation ABG pH at Pt Temp ABG pCO2 at Pt Temp ABG pO2 at Pt Temp ABG HCO3 ABG Base Excess (Actual) VBG pH 7.30 L VBG pCO2 88 VBG pO2 60 VBG HCO3 44 H VBG O2 Saturation 86.0 VBG Base Excess 12.6 Sodium Potassium Chloride Carbon Dioxide Anion Gap BUN Creatinine Estim Creat Clear Calc Estimated GFR POC Glucose 159 H 169 H Random Glucose Fasting Glucose Calcium Phosphorus Magnesium Total Bilirubin AST ALT Alkaline Phosphatase B-Natriuretic Peptide Total Protein Albumin Procalcitonin HIV 1&2 Ab/P24 Ag 4thGn 03/19/24 03/19/24 03/19/24 11:23 11:31 13:44 WBC RBC Hgb Hct MCV MCH MCHC RDW Plt Count MPV Immature Gran % (Auto) Neut % (Auto) Lymph % (Auto) [place] % (Auto) Eos % (Auto) Baso % (Auto) Lymph # (Auto) [place] # (Auto) Eos # (Auto) Baso # (Auto) Abs Immat Gran (auto) Absolute Neuts (auto) Absolute Nucleated RBC Nucleated RBC % (auto) Neutrophils % (Manual) Band Neutrophils % Lymphocytes % (Manual) Abs Neuts (Manual) Lymphocytes # (Manual) Platelet Estimate Plt Morphology Comment RBC Morphology Smear Tech's Comments O2 Saturation 90.0 86.0 ABG pH at Pt Temp 7.30 L 7.34 L ABG pCO2 at Pt Temp 85 H* 77 H* ABG pO2 at Pt Temp 66 L 58 L ABG HCO3 42 H 42 H ABG Base Excess (Actual) 11.2 13.0 VBG pH VBG pCO2 VBG pO2 VBG HCO3 VBG O2 Saturation VBG Base Excess Sodium Potassium Chloride Carbon Dioxide Anion Gap BUN Creatinine Estim Creat Clear Calc Estimated GFR POC Glucose 188 H Random Glucose Fasting Glucose Calcium Phosphorus Magnesium Total Bilirubin AST ALT Alkaline Phosphatase B-Natriuretic Peptide Total Protein Albumin Procalcitonin HIV 1&2 Ab/P24 Ag 4thGn 03/19/24 03/19/24 03/19/24 15:08 17:50 23:41 WBC RBC Hgb Hct MCV MCH MCHC RDW Plt Count MPV Immature Gran % (Auto) Neut % (Auto) Lymph % (Auto) [place] % (Auto) Eos % (Auto) Baso % (Auto) Lymph # (Auto) [place] # (Auto) Eos # (Auto) Baso # (Auto) Abs Immat Gran (auto) Absolute Neuts (auto) Absolute Nucleated RBC Nucleated RBC % (auto) Neutrophils % (Manual) Band Neutrophils % Lymphocytes % (Manual) Abs Neuts (Manual) Lymphocytes # (Manual) Platelet Estimate Plt Morphology Comment RBC Morphology Smear Tech's Comments O2 Saturation 100.0 ABG pH at Pt Temp 7.50 H ABG pCO2 at Pt Temp 50 H ABG pO2 at Pt Temp 111 H ABG HCO3 39 H ABG Base Excess (Actual) 14.2 VBG pH VBG pCO2 VBG pO2 VBG HCO3 VBG O2 Saturation VBG Base Excess Sodium Potassium Chloride Carbon Dioxide Anion Gap BUN Creatinine Estim Creat Clear Calc Estimated GFR POC Glucose 162 H 129 H Random Glucose Fasting Glucose Calcium Phosphorus Magnesium Total Bilirubin AST ALT Alkaline Phosphatase B-Natriuretic Peptide Total Protein Albumin Procalcitonin HIV 1&2 Ab/P24 Ag 4thGn 03/21/24 03/21/24 03/22/24 17:37 23:25 05:44 WBC RBC Hgb Hct MCV MCH MCHC RDW Plt Count MPV Immature Gran % (Auto) Neut % (Auto) Lymph % (Auto) [place] % (Auto) Eos % (Auto) Baso % (Auto) Lymph # (Auto) [place] # (Auto) Eos # (Auto) Baso # (Auto) Abs Immat Gran (auto) Absolute Neuts (auto) Absolute Nucleated RBC Nucleated RBC % (auto) Neutrophils % (Manual) Band Neutrophils % Lymphocytes % (Manual) Abs Neuts (Manual) Lymphocytes # (Manual) Platelet Estimate Plt Morphology Comment RBC Morphology Smear Tech's Comments O2 Saturation ABG pH at Pt Temp ABG pCO2 at Pt Temp ABG pO2 at Pt Temp ABG HCO3 ABG Base Excess (Actual) VBG pH VBG pCO2 VBG pO2 VBG HCO3 VBG O2 Saturation VBG Base Excess Sodium Potassium Chloride Carbon Dioxide Anion Gap BUN Creatinine Estim Creat Clear Calc Estimated GFR POC Glucose 164 H 192 H 189 H Random Glucose Fasting Glucose Calcium Phosphorus Magnesium Total Bilirubin AST ALT Alkaline Phosphatase B-Natriuretic Peptide Total Protein Albumin Procalcitonin HIV 1&2 Ab/P24 Ag 4thGn 03/22/24 03/22/24 03/22/24 09:08 09:13 11:21 WBC 11.0 H RBC 4.45 L Hgb 13.2 L Hct 44.0 MCV 98.9 H MCH 29.7 MCHC 30.0 L RDW 14.8 Plt Count 134 L MPV 10.3 Immature Gran % (Auto) 0.9 H Neut % (Auto) 77.8 H Lymph % (Auto) 10.5 L [place] % (Auto) 5.3 Eos % (Auto) 5.3 H Baso % (Auto) 0.2 Lymph # (Auto) 1.2 [place] # (Auto) 0.6 Eos # (Auto) 0.6 H Baso # (Auto) 0.0 Abs Immat Gran (auto) 0.10 H Absolute Neuts (auto) 8.5 H Absolute Nucleated RBC 0.000 Nucleated RBC % (auto) 0.0 Neutrophils % (Manual) Band Neutrophils % Lymphocytes % (Manual) Abs Neuts (Manual) Lymphocytes # (Manual) Platelet Estimate Plt Morphology Comment RBC Morphology Smear Tech's Comments O2 Saturation ABG pH at Pt Temp ABG pCO2 at Pt Temp ABG pO2 at Pt Temp ABG HCO3 ABG Base Excess (Actual) VBG pH 7.41 VBG pCO2 61 VBG pO2 48 VBG HCO3 39 H VBG O2 Saturation 81.0 VBG Base Excess 11.8 Sodium 145 Potassium 3.8 Chloride 107 Carbon Dioxide 32 H Anion Gap 10 L BUN 23 H Creatinine 0.87 Estim Creat Clear Calc 109.5 Estimated GFR > 60 POC Glucose 156 H Random Glucose 190 H Fasting Glucose Calcium 8.4 Phosphorus 3.7 Magnesium 2.7 H Total Bilirubin 0.6 AST 24 ALT 22 Alkaline Phosphatase 76 B-Natriuretic Peptide Total Protein 6.3 L Albumin 3.0 L Procalcitonin HIV 1&2 Ab/P24 Ag 4thGn Microbiology Microbiology Results: Microbiology 03/14/24 17:45 Blood - Venous Blood Culture - Final No growth after 5 days. 03/14/24 17:45 Blood - Venous Blood Culture - Final No growth after 5 days. Progress Note: A&P Assessment and plan (1) Acute exacerbation of chronic obstructive pulmonary disease (COPD): Status: Acute (2) Respiratory failure with hypoxia and hypercapnia: Status: Acute (3) Pneumonia: Status: Acute (4) COPD (chronic obstructive pulmonary disease): Status: Acute (5) Acute respiratory failure with hypercapnia: Status: Acute (6) Pulmonary edema: Status: Acute Plan 63-year-old gentleman with underlying diabetes mellitus, TBI, seizure disorder, COPD admitted on 03/15/2024 with dyspnea. Patient initially noted to be in respiratory acidosis that improved with application of BiPAP. Patient was titrated to nasal cannula, however he started to retain CO2 again and was admitted to intensive care unit for close monitoring. His respiratory viral panel was negative. CT angio chest showed evidence of pulmonary emboli, but some pulmonary edema. He was treated with diuretic with improvement in his blood gases and downgraded to telemetry victoria. Patient continued with intermittent CO2 retention and noncompliance with nocturnal BiPAP therapy resulting worsening CO2 retention requiring daytime BiPAP application. However, patient was not compliant with daytime BiPAP requiring intubation and ventilatory support. Neuro: Acute encephalopathy possibly due to metabolic encephalopathy On propofol for sedation, fentanyl for analgesia Close neurological status monitoring in the ICU every hour Continue lithium and topiramate given significant history of schizoaffective disorder Cardiac: Shock: Possibly secondary to positive pressure ventilation On Levophed support, titrate Levophed to keep map above 65 mm Hg TTE showed normal EF Respiratory: Acute hypoxemic respiratory failure due to Currently on ventilator support On PRVC mode FiO2 35%, PEEP 5, TV 400, RR 20 Peak pressures and plateau pressures are under the curve Ventilator management bundle with head end elevation, aspiration precaution, chlorhexidine mouthwash, daily awakening trials, daily spontaneous breathing trials GI: Continue tube feeds Renal: Normal renal function We will closely monitor I's and O's Avoid nephrotoxic medications Heme: Chronic anemia, closely monitor H&H, transfuse for hemoglobin less than 7 grams/deciliter Endocrine: Diabetes mellitus: Blood sugars under control On Lantus 12 units nightly Sliding scale insulin as needed Infectious disease: Pancultures negative, leukocytosis improving Musculoskeletal: Decubitus ulcer prevention protocol Lines: Prophylaxis: Heparin, famotidine Quality Stroke Does the patient have a stroke diagnosis?: No VTE Prior VTE?: No VTE Risk Level:: Medical - moderate - high VTE Device Contraindication: Treatment Not Indicated VTE Drug Contraindication: N/A - Med Ordered
[2024-03-22 17:09] LABS: Glucose, Whole Blood 142 mg/dL (60-115)
--- NOTE | 2024-03-22 18:41 | PC.NURSE ---
Assumed care at 0700- pt. remains intubated and sedated through shift. Sedation titrated as tolerated per MAR. No BM since 03/14, faint bowel sounds auscultated- MD notified. Miralax and bisacodyl suppository given per MAR. Approx 1600 pt. with small white/cohen gelatinous BM- MD aware, no new orders at this time. Currently Pt. on ACPC settings- see vent assessment. Current VS HR 62, RR 18, Spo2 90%, 129/57 (74). Oral care and repositioning performed Q2HR, hovermat system in place. Plan of care ongoing.
[2024-03-22] MEDS: Norepinephrine Bitartrate/D5W 8 MG/250 ML PLAST..BAG 10.69 MG IVCONT (20:44)
[2024-03-22 21:28] LABS: Glucose, Whole Blood 183 mg/dL (60-115)
[2024-03-22 23:52] LABS: Glucose, Whole Blood 212 mg/dL (60-115)
[2024-03-23] VITALS (36 sets, daily range): BP systolic 95–144; BP diastolic 47–78; PULSE 50–85; RESP 17–94; TEMP 34.9–39; O2SAT 86–99
[2024-03-23] MEDS: Insulin Lispro 100 UNIT/ML 3 ML VIAL SUBCUT ×4 (00:05→17:53)
[2024-03-23] MEDS: fentaNYL citrate/NS 1,000 MCG/100 ML PLAST..BAG 7.5 MCG IVCONT (01:11)
[2024-03-23] MEDS: propofoL 1,000 MG/100 ML VIAL 27.36 MG IVCONT ×2 (02:02→04:52)
[2024-03-23 05:14] LABS: VBG HCO3 34 mmol/L (22-26); VBG pCO2 58 mmHg; VBG pH 7.37 (7.32-7.43); VBG pO2 48 mmHg
[2024-03-23 05:15] LABS: MANUAL DIFF FLAG NO
[2024-03-23 05:19] LABS: Basophils Absolute Auto 0.1 X10*3/uL (0.0-0.2); Basophils Percent Auto 0.4 % (0-2); Eosinophils Absolute Auto 0.7 X10*3/uL (0.0-0.4); Eosinophils Percent Auto 5.1 % (0-4); Hematocrit 45.8 % (42.0-52.0); Hemoglobin 13.6 g/dl (14.0-18.0); Imm Gran Pct Auto 1.4 % (0.0-0.4); Lymphocytes Absolute Auto 1.7 X10*3/uL (1.2-4.9); Lymphocytes Percent Auto 11.5 % (20-40); Mean Corpuscular HGB Conc 29.7 g/dl (31.0-36.0); Mean Corpuscular Hemoglobin 28.9 pg (27.0-33.0); Mean Corpuscular Volume 97.4 fL (80.0-98.0); Mean Platelet Volume 10.7 fL (9.4-12.4); Monocytes Absolute Auto 0.7 X10*3/uL (0.1-1.2); Monocytes Percent Auto 5.1 % (2-11); Neutrophils Percent Auto 76.5 % (45-73); Platelet Count 162 X10*3/uL (160-400); White Blood Count 14.4 X10*3/uL (4.8-10.8)
[2024-03-23 05:22] LABS: Venous Blood Gas Refer to POC result
[2024-03-23 05:49] LABS: Legionella Ag Urine Not Detected (Not Detected)
[2024-03-23 05:49] LABS: Alanine Aminotransferase 28 U/L (0-40); Albumin Level 3.2 g/dL (3.5-5.0); Alkaline Phosphatase 89 U/L (39-117); Anion Gap 10 (12-20); Aspartate Amino Transferase 35 U/L (5-37); Bilirubin Total 0.7 mg/dL (0.0-1.0); Blood Urea Nitrogen 20 mg/dL (9-16); Calcium 8.7 mg/dL (8.4-10.2); Carbon Dioxide 32 mmol/L (22-29); Chloride 104 mmol/L (96-108); Creatinine Clr Calc Pharmacy 109.5; Estimated Glomerular Filt Rate > 60; Glucose Random 217 mg/dL (60-115); Magnesium 2.6 mg/dL (1.6-2.6); Phosphorus 3.6 mg/dL (2.7-4.5); Potassium 3.9 mmol/L (3.3-5.1); Sodium 142 mmol/L (135-145)
--- NOTE | 2024-03-23 06:29 | PC.NURSE ---
Upon initial assessment at 1930, patient remains intubated sedated. Patient's ETT noted to be 19cm?@ lip, previously 26cm. CÉSAR Merino and RT notified immediately. RT advanced ETT back to 26cm?@ lip without issue. SB on tele, HR 50s. Patient remains edematous to BUE. Patient continues on mechanical ventilation, see vent assessment for settings. Abdomen large and round, bowel sounds auscultated x4. TF infusing at goal and tolerating well. Martins draining clear pale green urine, approx 50-100mL/hr. Skin persistently red with diffuse rash, showing signs of slight improvement. Gluteal fold and perineal area macerated, cleaned thoroughly and interdry applied. Prophylactic foam dressing to coccyx clean dry and intact. Oral care and repositioning provided Q2H, bed locked in lowest possible position, bed alarm on.? 2044: SBPs noted to be 80s persistently, Levophed gtt started per CÉSAR Merino, see MAR for titrations. 2100: Patient's sister Tran updated via phone by this RN.? No other acute changes, plan of care ongoing.?
[2024-03-23] MEDS: propofoL 1,000 MG/100 ML VIAL 20.52 MG IVCONT (08:33)
[2024-03-23] MEDS: Lithium Carbonate 300 MG CAPSULE PO ×2 (08:34→20:15)
[2024-03-23] MEDS: Lithium Carbonate 300 MG TABLET 150 MG PO ×2 (08:34→20:15)
[2024-03-23] MEDS: 0.9 % Sodium Chloride Flush 3 ML SYRINGE IVFLUSH ×2 (08:34→14:36)
[2024-03-23] MEDS: Insulin Glargine,Hum.rec.anlog 100 UNIT/ML 10 ML VIAL 12 UNIT SUBCUT (08:34)
[2024-03-23] MEDS: Enoxaparin Sodium 40 MG/0.4 ML SYRINGE SUBCUT (08:34)
[2024-03-23] MEDS: Famotidine/PF 20 MG/2 ML VIAL IVPUSH (08:34)
[2024-03-23] MEDS: Chlorhexidine Gluc Oral Rinse 15 ML MOUTHWASH BUCCAL ×3 (08:34→20:15)
[2024-03-23] MEDS: polyethylene glycoL 3350 17 GM POWD.PACK PO (08:34)
[2024-03-23] MEDS: Furosemide 20 MG/2 ML VIAL 40 MG IVPUSH (09:35)
[2024-03-23] MEDS: Lactulose 20 GM/30 ML SOLUTION 40 GM PO (10:14)
[2024-03-23] MEDS: bisacodyL 5 MG TABLET.DR 10 MG PO (10:14)
[2024-03-23 11:17] LABS: Glucose, Whole Blood 224 mg/dL (60-115)
--- NOTE | 2024-03-23 11:23 | MHC.CLN ---
F/U PT REMAINS INTUBATED AND SEDATED PT RECEIVING PROMOTE AT 50ML/HR 240ML FREE WATER FLUSHES Q 6 HRS PROVIDES 1200KCALS (1742KCALS WITH SEDATION), 75G PROTEIN (.8G/KG), 1967ML TOTAL FREE WATER FROM FORMULA AND FLUSHES (23ML/KG) RECOMMEND INCREASING TF PROMOTE AT MAX GOAL RATE 70ML/HR WITH 240ML Q 8 HRS TO PROVIDE 1680KCALS (2222KCALS WITH SEDATION; 24KCALS/KG BASED ON CMW), 105G PROTEIN (1.1G/KG), 2129ML TOTAL WATER FROM FORMULA AND FLUSHES (25KCALS/KG BASED ON IBW) MONITOR TOLERANCE AND LYTES
--- NOTE | 2024-03-23 11:55 | P.PNCC_ITS ---
Subjective Subjective Date of Service: 03/23/24 Critical Care Time (minutes): 35 Comment: Still remains on ventilator support this morning Tapering off fentanyl and propofol for weaning from ventilator Physical Exam 2 Vital Signs: Vital Signs: Last Vital Signs Temp 100.2 F 03/23/24 11:00 Pulse 85 03/23/24 11:00 Resp 23 H 03/23/24 11:00 BP 138/76 03/23/24 11:00 Pulse Ox 90 L 03/23/24 11:31 O2 Del Method Mechanical Ventil ation 03/23/24 11:00 O2 Flow Rate 7 03/19/24 08:00 FiO2 25 03/23/24 11:31 Oxygen Flow Rate 11 03/18/24 15:30 BMI result Body Mass Index 31.7 General: In somewhat acute distress, ill appearing and tired appearing Nutritional Appearance: well nourished and overweight Eyes: appearance normal, both eyes and all related structures; Alignment and Position: alignment normal and position normal Neck: No lymphadenopathy, no thyromegaly Resp: bilateral air entry equal, bilateral wheeze heard Cardio: Regular rate, regular rhythm; Heart sounds: S1 normal heart sound present and S2 normal heart sound present GI: soft, nontender, no guarding, no hepatosplenomegaly : bladder normal to inspection, bladder normal to palpation, no renal angle tenderness Skin: no rashes or lesions noted and elasticity normal Neuro: Sedated, no focal deficits moves all extremities Objective Data Labs 03/23/24 05:08 03/23/24 05:08 Labs: Laboratory Results - last 24 hr 03/14/24 03/18/24 03/18/24 18:36 06:55 07:33 WBC 25.3 H RBC 4.87 Hgb 14.2 Hct 46.6 MCV 95.7 MCH 29.2 MCHC 30.5 L RDW 14.1 Plt Count 198 MPV 10.2 Immature Gran % (Auto) Cancelled Neut % (Auto) Cancelled Lymph % (Auto) Cancelled [place] % (Auto) Cancelled Eos % (Auto) Cancelled Baso % (Auto) Cancelled Lymph # (Auto) Cancelled [place] # (Auto) Cancelled Eos # (Auto) Cancelled Baso # (Auto) Cancelled Abs Immat Gran (auto) Cancelled Absolute Neuts (auto) Cancelled Absolute Nucleated RBC 0.000 Nucleated RBC % (auto) 0.0 Neutrophils % (Manual) 93 H Band Neutrophils % 3 Lymphocytes % (Manual) 4 L Abs Neuts (Manual) 24.3 H Lymphocytes # (Manual) 1.0 L Platelet Estimate NORMAL Plt Morphology Comment NORMAL RBC Morphology NORMAL Smear Tech's Comments MANUAL DIFF O2 Saturation ABG pH at Pt Temp ABG pCO2 at Pt Temp ABG pO2 at Pt Temp ABG HCO3 ABG Base Excess (Actual) VBG pH VBG pCO2 VBG pO2 VBG HCO3 VBG O2 Saturation VBG Base Excess Sodium Potassium Chloride Carbon Dioxide Anion Gap BUN Creatinine Estim Creat Clear Calc Estimated GFR POC Glucose 172 H Random Glucose Fasting Glucose Calcium Phosphorus Magnesium Total Bilirubin AST ALT Alkaline Phosphatase B-Natriuretic Peptide Total Protein Albumin Procalcitonin HIV 1&2 Ab/P24 Ag 4thGn Ur L.pneumophila Ag Not Detected 03/18/24 03/18/24 03/18/24 10:50 14:18 15:16 WBC RBC Hgb Hct MCV MCH MCHC RDW Plt Count MPV Immature Gran % (Auto) Neut % (Auto) Lymph % (Auto) [place] % (Auto) Eos % (Auto) Baso % (Auto) Lymph # (Auto) [place] # (Auto) Eos # (Auto) Baso # (Auto) Abs Immat Gran (auto) Absolute Neuts (auto) Absolute Nucleated RBC Nucleated RBC % (auto) Neutrophils % (Manual) Band Neutrophils % Lymphocytes % (Manual) Abs Neuts (Manual) Lymphocytes # (Manual) Platelet Estimate Plt Morphology Comment RBC Morphology Smear Tech's Comments O2 Saturation ABG pH at Pt Temp ABG pCO2 at Pt Temp ABG pO2 at Pt Temp ABG HCO3 ABG Base Excess (Actual) VBG pH 7.33 VBG pCO2 87 VBG pO2 44 VBG HCO3 46 H VBG O2 Saturation 74.0 VBG Base Excess 15.5 Sodium Potassium Chloride Carbon Dioxide Anion Gap BUN Creatinine Estim Creat Clear Calc Estimated GFR POC Glucose 170 H 122 H Random Glucose Fasting Glucose Calcium Phosphorus Magnesium Total Bilirubin AST ALT Alkaline Phosphatase B-Natriuretic Peptide Total Protein Albumin Procalcitonin HIV 1&2 Ab/P24 Ag 4thGn Ur L.pneumophila Ag 03/18/24 03/19/24 03/19/24 21:29 06:11 06:12 WBC 25.6 H RBC 4.68 Hgb 13.8 L Hct 46.3 MCV 98.9 H MCH 29.5 MCHC 29.8 L RDW 14.1 Plt Count 197 MPV 10.4 Immature Gran % (Auto) Neut % (Auto) Lymph % (Auto) [place] % (Auto) Eos % (Auto) Baso % (Auto) Lymph # (Auto) [place] # (Auto) Eos # (Auto) Baso # (Auto) Abs Immat Gran (auto) Absolute Neuts (auto) Absolute Nucleated RBC 0.000 Nucleated RBC % (auto) 0.0 Neutrophils % (Manual) Band Neutrophils % Lymphocytes % (Manual) Abs Neuts (Manual) Lymphocytes # (Manual) Platelet Estimate Plt Morphology Comment RBC Morphology Smear Tech's Comments O2 Saturation ABG pH at Pt Temp ABG pCO2 at Pt Temp ABG pO2 at Pt Temp ABG HCO3 ABG Base Excess (Actual) VBG pH VBG pCO2 VBG pO2 VBG HCO3 VBG O2 Saturation VBG Base Excess Sodium 143 Potassium 4.2 Chloride 95 L Carbon Dioxide 38 H Anion Gap 14 BUN 35 H Creatinine 0.98 Estim Creat Clear Calc 99.4 Estimated GFR > 60 POC Glucose 171 H Random Glucose 146 H Fasting Glucose 147 H Calcium 8.6 D Phosphorus Magnesium Total Bilirubin 0.4 AST 18 ALT 32 Alkaline Phosphatase 117 B-Natriuretic Peptide 64 Total Protein 7.4 Albumin 3.6 Procalcitonin 0.07 HIV 1&2 Ab/P24 Ag 4thGn Nonreactive Ur L.pneumophila Ag 03/19/24 03/19/24 03/19/24 07:27 08:24 09:32 WBC RBC Hgb Hct MCV MCH MCHC RDW Plt Count MPV Immature Gran % (Auto) Neut % (Auto) Lymph % (Auto) [place] % (Auto) Eos % (Auto) Baso % (Auto) Lymph # (Auto) [place] # (Auto) Eos # (Auto) Baso # (Auto) Abs Immat Gran (auto) Absolute Neuts (auto) Absolute Nucleated RBC Nucleated RBC % (auto) Neutrophils % (Manual) Band Neutrophils % Lymphocytes % (Manual) Abs Neuts (Manual) Lymphocytes # (Manual) Platelet Estimate Plt Morphology Comment RBC Morphology Smear Tech's Comments O2 Saturation ABG pH at Pt Temp ABG pCO2 at Pt Temp ABG pO2 at Pt Temp ABG HCO3 ABG Base Excess (Actual) VBG pH 7.30 L VBG pCO2 88 VBG pO2 60 VBG HCO3 44 H VBG O2 Saturation 86.0 VBG Base Excess 12.6 Sodium Potassium Chloride Carbon Dioxide Anion Gap BUN Creatinine Estim Creat Clear Calc Estimated GFR POC Glucose 159 H 169 H Random Glucose Fasting Glucose Calcium Phosphorus Magnesium Total Bilirubin AST ALT Alkaline Phosphatase B-Natriuretic Peptide Total Protein Albumin Procalcitonin HIV 1&2 Ab/P24 Ag 4thGn Ur L.pneumophila Ag 03/19/24 03/19/24 03/19/24 11:23 11:31 13:44 WBC RBC Hgb Hct MCV MCH MCHC RDW Plt Count MPV Immature Gran % (Auto) Neut % (Auto) Lymph % (Auto) [place] % (Auto) Eos % (Auto) Baso % (Auto) Lymph # (Auto) [place] # (Auto) Eos # (Auto) Baso # (Auto) Abs Immat Gran (auto) Absolute Neuts (auto) Absolute Nucleated RBC Nucleated RBC % (auto) Neutrophils % (Manual) Band Neutrophils % Lymphocytes % (Manual) Abs Neuts (Manual) Lymphocytes # (Manual) Platelet Estimate Plt Morphology Comment RBC Morphology Smear Tech's Comments O2 Saturation 90.0 86.0 ABG pH at Pt Temp 7.30 L 7.34 L ABG pCO2 at Pt Temp 85 H* 77 H* ABG pO2 at Pt Temp 66 L 58 L ABG HCO3 42 H 42 H ABG Base Excess (Actual) 11.2 13.0 VBG pH VBG pCO2 VBG pO2 VBG HCO3 VBG O2 Saturation VBG Base Excess Sodium Potassium Chloride Carbon Dioxide Anion Gap BUN Creatinine Estim Creat Clear Calc Estimated GFR POC Glucose 188 H Random Glucose Fasting Glucose Calcium Phosphorus Magnesium Total Bilirubin AST ALT Alkaline Phosphatase B-Natriuretic Peptide Total Protein Albumin Procalcitonin HIV 1&2 Ab/P24 Ag 4thGn Ur L.pneumophila Ag 03/19/24 03/19/24 03/19/24 15:08 17:50 23:41 WBC RBC Hgb Hct MCV MCH MCHC RDW Plt Count MPV Immature Gran % (Auto) Neut % (Auto) Lymph % (Auto) [place] % (Auto) Eos % (Auto) Baso % (Auto) Lymph # (Auto) [place] # (Auto) Eos # (Auto) Baso # (Auto) Abs Immat Gran (auto) Absolute Neuts (auto) Absolute Nucleated RBC Nucleated RBC % (auto) Neutrophils % (Manual) Band Neutrophils % Lymphocytes % (Manual) Abs Neuts (Manual) Lymphocytes # (Manual) Platelet Estimate Plt Morphology Comment RBC Morphology Smear Tech's Comments O2 Saturation 100.0 ABG pH at Pt Temp 7.50 H ABG pCO2 at Pt Temp 50 H ABG pO2 at Pt Temp 111 H ABG HCO3 39 H ABG Base Excess (Actual) 14.2 VBG pH VBG pCO2 VBG pO2 VBG HCO3 VBG O2 Saturation VBG Base Excess Sodium Potassium Chloride Carbon Dioxide Anion Gap BUN Creatinine Estim Creat Clear Calc Estimated GFR POC Glucose 162 H 129 H Random Glucose Fasting Glucose Calcium Phosphorus Magnesium Total Bilirubin AST ALT Alkaline Phosphatase B-Natriuretic Peptide Total Protein Albumin Procalcitonin HIV 1&2 Ab/P24 Ag 4thGn Ur L.pneumophila Ag 03/22/24 03/22/24 03/22/24 17:01 21:05 23:42 WBC RBC Hgb Hct MCV MCH MCHC RDW Plt Count MPV Immature Gran % (Auto) Neut % (Auto) Lymph % (Auto) [place] % (Auto) Eos % (Auto) Baso % (Auto) Lymph # (Auto) [place] # (Auto) Eos # (Auto) Baso # (Auto) Abs Immat Gran (auto) Absolute Neuts (auto) Absolute Nucleated RBC Nucleated RBC % (auto) Neutrophils % (Manual) Band Neutrophils % Lymphocytes % (Manual) Abs Neuts (Manual) Lymphocytes # (Manual) Platelet Estimate Plt Morphology Comment RBC Morphology Smear Tech's Comments O2 Saturation ABG pH at Pt Temp ABG pCO2 at Pt Temp ABG pO2 at Pt Temp ABG HCO3 ABG Base Excess (Actual) VBG pH VBG pCO2 VBG pO2 VBG HCO3 VBG O2 Saturation VBG Base Excess Sodium Potassium Chloride Carbon Dioxide Anion Gap BUN Creatinine Estim Creat Clear Calc Estimated GFR POC Glucose 142 H 183 H 212 H Random Glucose Fasting Glucose Calcium Phosphorus Magnesium Total Bilirubin AST ALT Alkaline Phosphatase B-Natriuretic Peptide Total Protein Albumin Procalcitonin HIV 1&2 Ab/P24 Ag 4thGn Ur L.pneumophila Ag 03/23/24 03/23/24 03/23/24 05:08 05:09 11:08 WBC 14.4 H RBC 4.70 Hgb 13.6 L Hct 45.8 MCV 97.4 MCH 28.9 MCHC 29.7 L RDW 15.0 Plt Count 162 MPV 10.7 Immature Gran % (Auto) 1.4 H Neut % (Auto) 76.5 H Lymph % (Auto) 11.5 L [place] % (Auto) 5.1 Eos % (Auto) 5.1 H Baso % (Auto) 0.4 Lymph # (Auto) 1.7 [place] # (Auto) 0.7 Eos # (Auto) 0.7 H Baso # (Auto) 0.1 Abs Immat Gran (auto) 0.20 H Absolute Neuts (auto) 11.0 H Absolute Nucleated RBC 0.000 Nucleated RBC % (auto) 0.0 Neutrophils % (Manual) Band Neutrophils % Lymphocytes % (Manual) Abs Neuts (Manual) Lymphocytes # (Manual) Platelet Estimate Plt Morphology Comment RBC Morphology Smear Tech's Comments O2 Saturation ABG pH at Pt Temp ABG pCO2 at Pt Temp ABG pO2 at Pt Temp ABG HCO3 ABG Base Excess (Actual) VBG pH 7.37 VBG pCO2 58 VBG pO2 48 VBG HCO3 34 H VBG O2 Saturation 72.0 VBG Base Excess 7.0 Sodium 142 Potassium 3.9 Chloride 104 Carbon Dioxide 32 H Anion Gap 10 L BUN 20 H Creatinine 0.87 Estim Creat Clear Calc 109.5 Estimated GFR > 60 POC Glucose 224 H Random Glucose 217 H Fasting Glucose Calcium 8.7 Phosphorus 3.6 Magnesium 2.6 Total Bilirubin 0.7 AST 35 ALT 28 Alkaline Phosphatase 89 B-Natriuretic Peptide Total Protein 7.0 Albumin 3.2 L Procalcitonin HIV 1&2 Ab/P24 Ag 4thGn Ur L.pneumophila Ag Microbiology Microbiology Results: Microbiology 03/14/24 17:45 Blood - Venous Blood Culture - Final No growth after 5 days. 03/14/24 17:45 Blood - Venous Blood Culture - Final No growth after 5 days. Progress Note: A&P Assessment and plan (1) Pulmonary edema: Status: Acute (2) Acute respiratory failure with hypercapnia: Status: Acute (3) COPD (chronic obstructive pulmonary disease): Status: Acute (4) Acute exacerbation of chronic obstructive pulmonary disease (COPD): Status: Acute (5) Respiratory failure with hypoxia and hypercapnia: Status: Acute (6) Encephalopathy: Status: Acute Plan 63-year-old gentleman with underlying diabetes mellitus, TBI, seizure disorder, COPD admitted on 03/15/2024 with dyspnea. Patient initially noted to be in respiratory acidosis that improved with application of BiPAP. His respiratory viral panel was negative. CT angio chest showed evidence of pulmonary emboli, but some pulmonary edema. He was treated with diuretic with improvement in his blood gases and downgraded to telemetry victoria. Patient continued with intermittent CO2 retention and noncompliance with nocturnal BiPAP therapy resulting worsening CO2 retention requiring daytime BiPAP application. However, patient was not compliant with daytime BiPAP requiring intubation and ventilatory support. Neuro: Acute encephalopathy possibly due to metabolic encephalopathy On propofol for sedation, fentanyl for analgesia. Fentanyl turned off, tapering propofol for pressor support trials Close neurological status monitoring in the ICU every hour Continue lithium and topiramate given significant history of schizoaffective disorder Cardiac: Shock: Possibly secondary to positive pressure ventilation On Levophed support 0.07 this morning, titrate Levophed to keep map above 65 mm Hg TTE showed normal EF Respiratory: Acute hypoxemic respiratory failure due to Currently on ventilator support On PRVC mode FiO2 35%, PEEP 5, TV 400, RR 20, placing the patient on pressor support for weaning trials if he does well we will extubate the patient. However he has a high-risk for intubation given noncompliance to BiPAP had underlying severe COPD. This has been explained to his sister Tran, who stated that he had similar episode 1.5 years ago where he was intubated multiple times due to noncompliance to BiPAP at [facility]. He has been stable without BiPAP since then. If the time comes where he needs repeated re-intubation due to noncompliance to the BiPAP she might consider making him DNI. Peak pressures and plateau pressures are under the curve Ventilator management bundle with head end elevation, aspiration precaution, chlorhexidine mouthwash, daily awakening trials, daily spontaneous breathing trials GI: Continue tube feeds Renal: Normal renal function We will closely monitor I's and O's Avoid nephrotoxic medications Heme: Chronic anemia, closely monitor H&H, transfuse for hemoglobin less than 7 grams/deciliter Endocrine: Diabetes mellitus: Blood sugars under control On Lantus 12 units nightly Sliding scale insulin as needed Infectious disease: Pancultures negative, leukocytosis improving Musculoskeletal: Decubitus ulcer prevention protocol Lines: Prophylaxis: Heparin, famotidine Quality Stroke Does the patient have a stroke diagnosis?: No VTE Prior VTE?: No VTE Risk Level:: Medical - moderate - high VTE Device Contraindication: Treatment Not Indicated VTE Drug Contraindication: N/A - Med Ordered
[2024-03-23] MEDS: Piperacillin Sodium/Tazobactam 4.5 GM in 0.9 % Sodium Chloride 100 ML IV ×2 (15:09→20:15)
--- NOTE | 2024-03-23 15:12 | MHC.CM.PN ---
Pt to begin vent weaning today: concern is for pt's lack of compliance with BiPAP and repeated hypercapnic events: Pt was his own decision maker prior to admission with his sister as HCP. Pt is a LTC resident of [facility]. It may be helpful to assess pt's decision making ability via formal evaluation once his is able to respond for assistance with goals of care needs. CM to follow
[2024-03-23] MEDS: dexmedeTOMIDidine HCL/NS 400 MCG/100 ML INFUS..BTL 40.84 MCG IVCONT ×4 (16:21→23:30)
[2024-03-23 17:22] LABS: Glucose, Whole Blood 204 mg/dL (60-115)
[2024-03-23] MEDS: Acetaminophen Oral Liquid 650 MG/20.3 ML SOLUTION 975 MG PO (19:22)
--- NOTE | 2024-03-23 20:47 | PC.NURSE ---
Assumed care at 0700- pt mechanically vented and sedated on propofol and fentanyl gtts. Sedation Vacation performed- see APR for titrations. PSV trial initiated- see vent assessment. Pt. on PSV for approx 4 hours before he became fatigued as evidenced by decreasing TV and increasing RR. MD and RT notified, pt. placed back on ACPC to rest- precedex gtt started and titrated per APR. Tmax 102.2- MD notified- pt. packed with ice and one time tylenol dose given per APR- effectiveness pending. Scheduled IV abx started and administered per APR. No BM since 03/14- MD aware. PO bisacodyl and lactulose administered per APR this AM. At approx 1600, pt. still with no BM- MD notified, soap suds enema administered at approx 1800 with no effect, Wero LINDSEY notified. Currently pt. RASS -3 on precedex gtt, SR HR 50s, SBP 90s-110s with MAPs >65, O2 sat 96% on 35% FiO2. Oral care and repositioning performed Q2HR, hovermat system in place. Plan of care ongoing.
[2024-03-23 23:39] LABS: Glucose, Whole Blood 266 mg/dL (60-115)
[2024-03-24] VITALS (34 sets, daily range): BP systolic 90–137; BP diastolic 42–87; PULSE 45–77; RESP 18–28; TEMP 35–39.1; O2SAT 94–100
[2024-03-24] MEDS: 0.9 % Sodium Chloride Flush 3 ML SYRINGE IVFLUSH ×2 (00:26→23:03)
[2024-03-24] MEDS: Insulin Lispro 100 UNIT/ML 3 ML VIAL SUBCUT ×5 (00:27→23:43)
[2024-03-24] MEDS: fentaNYL citrate/PF 100 MCG/2 ML VIAL IVPUSH (01:36)
[2024-03-24] MEDS: dexmedeTOMIDidine HCL/NS 400 MCG/100 ML INFUS..BTL 35.39 MCG IVCONT ×2 (02:16→23:04)
[2024-03-24] MEDS: Piperacillin Sodium/Tazobactam 4.5 GM in 0.9 % Sodium Chloride 100 ML IV ×4 (04:26→20:32)
[2024-03-24] MEDS: dexmedeTOMIDidine HCL/NS 400 MCG/100 ML INFUS..BTL 40.84 MCG IVCONT ×3 (05:09→20:20)
[2024-03-24 05:16] LABS: VBG Base Excess 6.5 mmol/L; VBG HCO3 30 mmol/L (22-26); VBG pCO2 39 mmHg; VBG pH 7.49 (7.32-7.43); VBG pO2 53 mmHg
[2024-03-24 05:25] LABS: Venous Blood Gas Refer to POC result
[2024-03-24 05:32] LABS: Basophils Percent Auto 0.2 % (0-2); Imm Gran Abs Auto 0.18 X10*3/uL (0.00-0.03); Imm Gran Pct Auto 0.9 % (0.0-0.4); MANUAL DIFF FLAG SCAN; Monocytes Absolute Auto 0.6 X10*3/uL (0.1-1.2); Monocytes Percent Auto 3.1 % (2-11); Neutrophils Percent Auto 90.6 % (45-73); PLT CLUMP 1; SCAN SMEAR FLAG 1
[2024-03-24 05:33] LABS: Eosinophils Absolute Auto 0.4 X10*3/uL (0.0-0.4); Hematocrit 44.9 % (42.0-52.0); Hemoglobin 13.6 g/dl (14.0-18.0); Lymphocytes Absolute Auto 0.7 X10*3/uL (1.2-4.9); Lymphocytes Percent Auto 3.2 % (20-40); Mean Corpuscular HGB Conc 30.3 g/dl (31.0-36.0); Mean Corpuscular Hemoglobin 29.4 pg (27.0-33.0); Mean Corpuscular Volume 97.2 fL (80.0-98.0); Mean Platelet Volume 11.4 fL (9.4-12.4); Neutrophils Absolute Auto 18.6 x10*3/uL (2.0-8.3); Red Blood Count 4.62 X10*6/uL (4.60-5.80); Red Cell Distribution Width 14.7 % (11.0-16.0)
[2024-03-24 05:43] LABS: Platelet Count 137 X10*3/uL (160-400); White Blood Count 20.5 X10*3/uL (4.8-10.8)
[2024-03-24 05:53] LABS: Alanine Aminotransferase 28 U/L (0-40); Alkaline Phosphatase 88 U/L (39-117); Anion Gap 12 (12-20); Aspartate Amino Transferase 29 U/L (5-37); Bilirubin Total 0.9 mg/dL (0.0-1.0); Blood Urea Nitrogen 30 mg/dL (9-16); Calcium 8.3 mg/dL (8.4-10.2); Carbon Dioxide 27 mmol/L (22-29); Chloride 104 mmol/L (96-108); Creatinine Clr Calc Pharmacy 89.9; Estimated Glomerular Filt Rate > 60; Glucose Random 336 mg/dL (60-115); Magnesium 2.6 mg/dL (1.6-2.6); Phosphorus 3.2 mg/dL (2.7-4.5); Potassium 4.3 mmol/L (3.3-5.1); Sodium 139 mmol/L (135-145); Total Protein 6.8 g/dL (6.5-8.0)
[2024-03-24 05:55] LABS: SLIDE REVIEW VERIFIED
[2024-03-24 06:06] LABS: Glucose, Whole Blood 310 mg/dL (60-115)
--- NOTE | 2024-03-24 07:10 | HO.SKINPHOTO ---
Addendum entered by Yusef Oakes RN 03/24/24 07:18: additional photo. Original Note: Location: Upper Lip and Bilateral Inner Gums Category: MDPI Description: ET Tube tilley related maceration to skin. Additionally, pressure injury to skin externally and gums internally causing ulcer to mucous membranes.
--- NOTE | 2024-03-24 08:45 | PM.CCPN ---
Subjective Subjective Date of Service: 03/24/24 Critical Care Time (minutes): 35 Comment: Failed weaning trials yesterday due to tachypnea and low minute ventilation. Currently on volume control. On Precedex for anxiolysis Physical Exam Vital Signs: Vital Signs: Last Vital Signs Temp 100.7 F H 03/24/24 08:00 Pulse 56 03/24/24 08:00 Resp 23 H 03/24/24 08:00 BP 127/82 03/24/24 08:00 Pulse Ox 96 03/24/24 08:00 O2 Del Method Mechanical Ventil ation 03/24/24 08:00 O2 Flow Rate 7 03/19/24 08:00 FiO2 25 03/24/24 08:00 Oxygen Flow Rate 11 03/18/24 15:30 BMI result Body Mass Index 31.7 General: Patient is mild acute distress, ill appearing and tired appearing Nutritional Appearance: well nourished and overweight Eyes: appearance normal, both eyes and all related structures; Alignment and Position: alignment normal and position normal Neck: No lymphadenopathy, no thyromegaly Resp: bilateral air entry equal, bilateral occasional wheeze heard Cardio: Regular rate, regular rhythm; Heart sounds: S1 normal heart sound present and S2 normal heart sound present GI: soft, nontender, no guarding, no hepatosplenomegaly : bladder normal to inspection, bladder normal to palpation, no renal angle tenderness Skin: no rashes or lesions noted and elasticity normal Neuro: No focal deficit, moves all extremities Objective Data Labs 03/24/24 05:11 03/24/24 05:11 Labs: Laboratory Results - last 24 hr 03/23/24 03/23/24 03/23/24 11:08 17:09 23:35 WBC RBC Hgb Hct MCV MCH MCHC RDW Plt Count MPV Immature Gran % (Auto) Neut % (Auto) Lymph % (Auto) [place] % (Auto) Eos % (Auto) Baso % (Auto) Lymph # (Auto) [place] # (Auto) Eos # (Auto) Baso # (Auto) Abs Immat Gran (auto) Absolute Neuts (auto) Absolute Nucleated RBC Nucleated RBC % (auto) Smear Tech's Comments VBG pH VBG pCO2 VBG pO2 VBG HCO3 VBG O2 Saturation VBG Base Excess Sodium Potassium Chloride Carbon Dioxide Anion Gap BUN Creatinine Estim Creat Clear Calc Estimated GFR POC Glucose 224 H 204 H 266 H Random Glucose Calcium Phosphorus Magnesium Total Bilirubin AST ALT Alkaline Phosphatase Total Protein Albumin 03/24/24 03/24/24 03/24/24 05:11 05:12 05:47 WBC 20.5 H RBC 4.62 Hgb 13.6 L Hct 44.9 MCV 97.2 MCH 29.4 MCHC 30.3 L RDW 14.7 Plt Count 137 L MPV 11.4 Immature Gran % (Auto) 0.9 H Neut % (Auto) 90.6 H Lymph % (Auto) 3.2 L [place] % (Auto) 3.1 Eos % (Auto) 2.0 Baso % (Auto) 0.2 Lymph # (Auto) 0.7 L [place] # (Auto) 0.6 Eos # (Auto) 0.4 Baso # (Auto) 0.0 Abs Immat Gran (auto) 0.18 H Absolute Neuts (auto) 18.6 H Absolute Nucleated RBC 0.000 Nucleated RBC % (auto) 0.0 Smear Tech's Comments VERIFIED VBG pH 7.49 H VBG pCO2 39 VBG pO2 53 VBG HCO3 30 H VBG O2 Saturation 84.0 VBG Base Excess 6.5 Sodium 139 Potassium 4.3 Chloride 104 Carbon Dioxide 27 Anion Gap 12 BUN 30 H Creatinine 1.06 Estim Creat Clear Calc 89.9 Estimated GFR > 60 POC Glucose 310 H Random Glucose 336 H Calcium 8.3 L Phosphorus 3.2 Magnesium 2.6 Total Bilirubin 0.9 AST 29 ALT 28 Alkaline Phosphatase 88 Total Protein 6.8 Albumin 3.0 L Microbiology Microbiology Results: Microbiology 03/14/24 17:45 Blood - Venous Blood Culture - Final No growth after 5 days. 03/14/24 17:45 Blood - Venous Blood Culture - Final No growth after 5 days. Progress Note: A&P Assessment and plan (1) Acute exacerbation of chronic obstructive pulmonary disease (COPD): Status: Acute (2) Respiratory failure with hypoxia and hypercapnia: Status: Acute (3) Pneumonia: Status: Acute (4) COPD (chronic obstructive pulmonary disease): Status: Acute (5) Acute respiratory failure with hypercapnia: Status: Acute (6) Pulmonary edema: Status: Acute (7) Encephalopathy: Status: Acute Plan 63-year-old gentleman with underlying diabetes mellitus, TBI, seizure disorder, COPD admitted on 03/15/2024 with dyspnea. Patient initially noted to be in respiratory acidosis that improved with application of BiPAP. His respiratory viral panel was negative. CT angio chest showed evidence of pulmonary emboli, but some pulmonary edema. He was treated with diuretic with improvement in his blood gases and downgraded to telemetry victoria. Patient continued with intermittent CO2 retention and noncompliance with nocturnal BiPAP therapy resulting worsening CO2 retention requiring daytime BiPAP application. However, patient was not compliant with daytime BiPAP requiring intubation and ventilatory support. Neuro: Acute encephalopathy possibly due to metabolic encephalopathy Propofol and fentanyl has been weaned off. Currently only on Precedex for anxiolysis Close neurological status monitoring in the ICU every hour Continue lithium and topiramate given significant history of schizoaffective disorder Cardiac: Shock: Possibly secondary to positive pressure ventilation Improved, off vasopressor support this TTE showed normal EF Respiratory: Acute hypoxemic respiratory failure due to Currently on ventilator support On PRVC mode FiO2 35%, PEEP 5, TV 400, RR 20, failed weaning trials yesterday due to tachypnea low minute ventilation, we will place him back on the pressor support trials today. However he remains off high-risk for intubation given noncompliance to BiPAP had underlying severe COPD. This has been explained to his sister Tran, who stated that he had similar episode 1.5 years ago where he was intubated multiple times due to noncompliance to BiPAP at [facility]. He has been stable without BiPAP since then. If the time comes where he needs repeated re-intubation due to noncompliance to the BiPAP she might consider making him DNI. Peak pressures and plateau pressures are under the curve Ventilator management bundle with head end elevation, aspiration precaution, chlorhexidine mouthwash, daily awakening trials, daily spontaneous breathing trials GI: Continue tube feeds Renal: Normal renal function, good urine output; net negative 300cc We will closely monitor I's and O's Avoid nephrotoxic medications Heme: Chronic anemia, closely monitor H&H, transfuse for hemoglobin less than 7 grams/deciliter Endocrine: Diabetes mellitus: Blood sugars under control On Lantus 12 units nightly Sliding scale insulin as needed Infectious disease: Pancultures negative Leukocytosis up to 20 K, low-grade fevers started on Zosyn for aspiration pneumonia will send sputum culture Musculoskeletal: Decubitus ulcer prevention protocol Lines: Peripheral Prophylaxis: Lovenox, famotidine Quality Stroke Does the patient have a stroke diagnosis?: No VTE Prior VTE?: No VTE Risk Level:: Medical - moderate - high VTE Device Contraindication: Treatment Not Indicated VTE Drug Contraindication: N/A - Med Ordered
[2024-03-24] MEDS: Chlorhexidine Gluc Oral Rinse 15 ML MOUTHWASH BUCCAL ×3 (10:35→20:33)
[2024-03-24] MEDS: Famotidine/PF 20 MG/2 ML VIAL IVPUSH (10:35)
[2024-03-24] MEDS: Lithium Carbonate 300 MG CAPSULE PO ×2 (10:37→20:33)
[2024-03-24] MEDS: Lactulose 20 GM/30 ML SOLUTION 40 GM PO (10:37)
[2024-03-24] MEDS: Lithium Carbonate 300 MG TABLET 150 MG PO ×2 (10:37→20:33)
[2024-03-24] MEDS: Enoxaparin Sodium 40 MG/0.4 ML SYRINGE SUBCUT (10:39)
[2024-03-24] MEDS: polyethylene glycoL 3350 17 GM POWD.PACK PO (10:39)
--- NOTE | 2024-03-24 12:03 | MHC.CLN ---
F/U PT REMAINS INTUBATED AND SEDATED PT RECEIVING TF PROMOTE AT MAX GOAL RATE 70ML/HR WITH 240ML Q 8 HRS TO PROVIDE 1680KCALS (2222KCALS WITH SEDATION; 24KCALS/KG BASED ON CMW), 105G PROTEIN (1.1G/KG), 2129ML TOTAL WATER FROM FORMULA AND FLUSHES (25KCALS/KG BASED ON IBW) CONTINUE TO MONITOR TOLERANCE AND LYTES
[2024-03-24 12:17] LABS: Glucose, Whole Blood 282 mg/dL (60-115)
[2024-03-24] MEDS: dexmedeTOMIDidine HCL/NS 400 MCG/100 ML INFUS..BTL 13.61 MCG IVCONT (12:45)
[2024-03-24] MEDS: Insulin Glargine,Hum.rec.anlog 100 UNIT/ML 10 ML VIAL 20 UNIT SUBCUT (13:00)
--- NOTE | 2024-03-24 14:18 | MHC.CM.PN ---
Pt remains vented: will trial PSV again today with precedex d/c to assist with return of cognitive status. Pt is a LTC resident of [facility] and is expeced to return once clinically stable. Updates remitted to facility. CM to follow
--- NOTE | 2024-03-24 16:46 | HO.WOUND ---
Wound Consult: Initial 63yr old?male admitted to [facility] [place] on 03/15/24 - See progress notes and H&P for detailed history.? Wound consult placed for wound to lip - device related.? Patient is intubated and remains in ICU level of care. Upper Lip Swelling and pink blanchable tissue noted Upper Lip - area of friction and mucosa pressure injury noted - of note the patient was noted to have a thick perez that was not shaved prior to Fredy ET Tube [place] application. This likely impacted the development of the friction / mucosal injury noted to the outer upper lip. Since has been shaved and converted to the [place] Anchorfast inverted to sit on chin - off loading pressure from site and eliminating friction. 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 irregular Sarai wound: ? Intact moist mucosa with some firm Induration noted to periwound, No Fluctuance noted Goals of Treatment: ? Off load pressure continue to not use Fredy ET Tube [place] and Frequent mouth care. Of note the Fredy ET Tube [place] was used beginning 03/19/24 - this was converted back to the [place] Anchorfast inverted to sit on chin in order to off load pressure from the lips. The Fredy was noted to not allow for the ET tube to be moved to off load pressure. Recommendations: 1. Turn and Reposition every 2 hours and as needed for patient comfort.? Use pillows or wedges to support off loading positions. 2. Off Load all bony prominences with use of pillows and heel boots if needed.? Apply Preventative foams where needed. ? 3. Monitor for incontinence and moisture control, use barrier creams when needed for prevention and treatment. 4. Provide adequate and supplemental nutrition.? 5. Order low air loss mattress. 6. When applicable maintain blood glucose levels per Providers order. 7. Outer Upper Lip - Cleanse with NS moist gauze, pat dry. Apply skin prep allow to dry. may leave open to air at this time. 8. Bilateral Inner Upper and Lower Lip - Provide frequent oral care and continue to off load pressure with frequent movement of the Tube resting site and the ET Tube [place] Device should remain on chin while injury is resolving. Re-consult wound care Nurse for wound deterioration or wound changes.
[2024-03-24] MEDS: dexmedeTOMIDidine HCL/NS 400 MCG/100 ML INFUS..BTL 24.5 MCG IVCONT (16:59)
[2024-03-24 17:55] LABS: Glucose, Whole Blood 193 mg/dL (60-115)
--- NOTE | 2024-03-24 23:03 | P.PNID_ITS ---
Subjective Subjective Date of Service: 03/24/24 Critical Care Time (minutes): 15 Comment: he has RLL pneumonia was constipated ,now stool Objective Data Labs 03/24/24 05:11 03/24/24 05:11 Labs: Laboratory Results - last 24 hr 03/23/24 03/24/24 03/24/24 23:35 05:11 05:12 WBC 20.5 H RBC 4.62 Hgb 13.6 L Hct 44.9 MCV 97.2 MCH 29.4 MCHC 30.3 L RDW 14.7 Plt Count 137 L MPV 11.4 Immature Gran % (Auto) 0.9 H Neut % (Auto) 90.6 H Lymph % (Auto) 3.2 L [place] % (Auto) 3.1 Eos % (Auto) 2.0 Baso % (Auto) 0.2 Lymph # (Auto) 0.7 L [place] # (Auto) 0.6 Eos # (Auto) 0.4 Baso # (Auto) 0.0 Abs Immat Gran (auto) 0.18 H Absolute Neuts (auto) 18.6 H Absolute Nucleated RBC 0.000 Nucleated RBC % (auto) 0.0 Smear Tech's Comments VERIFIED VBG pH 7.49 H VBG pCO2 39 VBG pO2 53 VBG HCO3 30 H VBG O2 Saturation 84.0 VBG Base Excess 6.5 Sodium 139 Potassium 4.3 Chloride 104 Carbon Dioxide 27 Anion Gap 12 BUN 30 H Creatinine 1.06 Estim Creat Clear Calc 89.9 Estimated GFR > 60 POC Glucose 266 H Random Glucose 336 H Calcium 8.3 L Phosphorus 3.2 Magnesium 2.6 Total Bilirubin 0.9 AST 29 ALT 28 Alkaline Phosphatase 88 Total Protein 6.8 Albumin 3.0 L 03/24/24 03/24/24 03/24/24 05:47 11:19 17:44 WBC RBC Hgb Hct MCV MCH MCHC RDW Plt Count MPV Immature Gran % (Auto) Neut % (Auto) Lymph % (Auto) [place] % (Auto) Eos % (Auto) Baso % (Auto) Lymph # (Auto) [place] # (Auto) Eos # (Auto) Baso # (Auto) Abs Immat Gran (auto) Absolute Neuts (auto) Absolute Nucleated RBC Nucleated RBC % (auto) Smear Tech's Comments VBG pH VBG pCO2 VBG pO2 VBG HCO3 VBG O2 Saturation VBG Base Excess Sodium Potassium Chloride Carbon Dioxide Anion Gap BUN Creatinine Estim Creat Clear Calc Estimated GFR POC Glucose 310 H 282 H 193 H Random Glucose Calcium Phosphorus Magnesium Total Bilirubin AST ALT Alkaline Phosphatase Total Protein Albumin Microbiology Microbiology Results: Microbiology 03/24/24 14:50 Sputum - Suctioned Gram Stain - Final 03/14/24 17:45 Blood - Venous Blood Culture - Final No growth after 5 days. 03/14/24 17:45 Blood - Venous Blood Culture - Final No growth after 5 days. Physical Exam 2 Vital Signs: Vital Signs: Last Vital Signs Temp 99.3 F 03/24/24 20:00 Pulse 55 03/24/24 22:00 Resp 18 03/24/24 22:00 BP 98/57 L 03/24/24 22:00 Pulse Ox 97 03/24/24 22:00 O2 Del Method Mechanical Ventil ation 03/24/24 22:00 O2 Flow Rate 7 03/19/24 08:00 FiO2 35 03/24/24 22:00 Oxygen Flow Rate 11 03/18/24 15:30 BMI result Body Mass Index 31.7 Const: General: cooperative HEENT: Head: Yes normal to inspection Face and sinus: Yes normal facial exam Mouth: Normal oral and palatal mucosa present Teeth and gingiva: d entition normal Eyes: General: appearance normal, both eyes and all related structures P upils: Equal, round and reactive pupils present Resp: Effort & Inspection: normal respiratory effort Cardio: Rate: regular rate Rhythm: regular rhythm GI: Palpation (GI): Soft to palpation and nontender : General: Yes no CVA tenderness Back/Spine/Pelvis: Back: no CVA tenderness Skin: General skin exam: no rashes or lesions noted Neuro: General: moves all extremities Cranial nerves: Yes Equal, round and reactive pupils present Extrem: General: Yes normal to inspection Psych: Appearance: grossly normal Assessment and Plan Assessment and plan (1) Leukocytosis: Status: Acute Assessment and Plan: Continue Zosyn,day 04/17 cover aspiration RLL (2) Acute respiratory failure with hypercapnia: Status: Acute Time Spent With Patient Time: Total time managing care of this patient today ____ minutes.
[2024-03-24 23:22] LABS: Glucose, Whole Blood 241 mg/dL (60-115)
[2024-03-25] VITALS (34 sets, daily range): BP systolic 91–138; BP diastolic 48–82; PULSE 46–75; RESP 15–31; TEMP 34.9–38.9; O2SAT 92–97
[2024-03-25] MEDS: dexmedeTOMIDidine HCL/NS 400 MCG/100 ML INFUS..BTL 35.39 MCG IVCONT ×2 (01:49→04:39)
[2024-03-25] MEDS: Piperacillin Sodium/Tazobactam 4.5 GM in 0.9 % Sodium Chloride 100 ML IV ×4 (03:20→20:41)
[2024-03-25 05:14] LABS: VBG HCO3 33 mmol/L (22-26); VBG pCO2 42 mmHg; VBG pO2 49 mmHg
[2024-03-25 05:38] LABS: Glucose, Whole Blood 289 mg/dL (60-115)
[2024-03-25 06:03] LABS: Alanine Aminotransferase 46 U/L (0-40); Albumin Level 2.9 g/dL (3.5-5.0); Alkaline Phosphatase 101 U/L (39-117); Anion Gap 14 (12-20); Aspartate Amino Transferase 46 U/L (5-37); Bilirubin Total 0.5 mg/dL (0.0-1.0); Blood Urea Nitrogen 27 mg/dL (9-16); Calcium 8.5 mg/dL (8.4-10.2); Carbon Dioxide 28 mmol/L (22-29); Chloride 104 mmol/L (96-108); Creatinine Clr Calc Pharmacy 103.6; Estimated Glomerular Filt Rate > 60; Glucose Random 288 mg/dL (60-115); Magnesium 2.7 mg/dL (1.6-2.6); Phosphorus 2.6 mg/dL (2.7-4.5); Potassium 4.5 mmol/L (3.3-5.1); Sodium 141 mmol/L (135-145); Total Protein 6.5 g/dL (6.5-8.0)
[2024-03-25] MEDS: Insulin Lispro 100 UNIT/ML 3 ML VIAL SUBCUT ×3 (06:03→19:10)
[2024-03-25 06:04] LABS: MANUAL DIFF FLAG NO
[2024-03-25 06:16] LABS: Basophils Percent Auto 0.2 % (0-2); Eosinophils Absolute Auto 0.5 X10*3/uL (0.0-0.4); Eosinophils Percent Auto 2.4 % (0-4); Hematocrit 39.3 % (42.0-52.0); Imm Gran Abs Auto 0.11 X10*3/uL (0.00-0.03); Imm Gran Pct Auto 0.6 % (0.0-0.4); Lymphocytes Absolute Auto 1.2 X10*3/uL (1.2-4.9); Lymphocytes Percent Auto 6.5 % (20-40); Mean Corpuscular HGB Conc 30.5 g/dl (31.0-36.0); Mean Corpuscular Hemoglobin 29.6 pg (27.0-33.0); Mean Corpuscular Volume 96.8 fL (80.0-98.0); Monocytes Absolute Auto 0.7 X10*3/uL (0.1-1.2); Monocytes Percent Auto 3.7 % (2-11); Neutrophils Absolute Auto 16.5 x10*3/uL (2.0-8.3); Neutrophils Percent Auto 86.6 % (45-73); Platelet Count 146 X10*3/uL (160-400); Red Blood Count 4.06 X10*6/uL (4.60-5.80); Red Cell Distribution Width 14.5 % (11.0-16.0)
[2024-03-25 06:48] LABS: Venous Blood Gas Refer to POC result
[2024-03-25] MEDS: dexmedeTOMIDidine HCL/NS 400 MCG/100 ML INFUS..BTL 40.84 MCG IVCONT ×5 (07:08→20:42)
[2024-03-25] MEDS: Aspirin Enteric Coated 81 MG TABLET.DR PO (07:52)
[2024-03-25] MEDS: Enoxaparin Sodium 40 MG/0.4 ML SYRINGE SUBCUT (07:52)
[2024-03-25] MEDS: Famotidine/PF 20 MG/2 ML VIAL IVPUSH (07:52)
[2024-03-25] MEDS: Lithium Carbonate 300 MG TABLET 150 MG PO (07:52)
[2024-03-25] MEDS: Chlorhexidine Gluc Oral Rinse 15 ML MOUTHWASH BUCCAL ×3 (07:52→20:44)
[2024-03-25] MEDS: Lithium Carbonate 300 MG CAPSULE PO (07:52)
[2024-03-25] MEDS: Insulin Glargine,Hum.rec.anlog 100 UNIT/ML 10 ML VIAL 20 UNIT SUBCUT (07:53)
[2024-03-25] MEDS: 0.9 % Sodium Chloride Flush 3 ML SYRINGE IVFLUSH ×3 (07:54→23:35)
--- NOTE | 2024-03-25 09:29 | PM.CCPN ---
Subjective Subjective Date of Service: 03/25/24 Critical Care Time (minutes): 35 Comment: continues to be on ventilator support precedex 1.5 for anxiolysis Physical Exam Vital Signs: Vital Signs: Last Vital Signs Temp 101.5 F H 03/25/24 09:00 Pulse 55 03/25/24 09:00 Resp 20 03/25/24 09:00 BP 118/74 03/25/24 09:00 Pulse Ox 97 03/25/24 09:00 O2 Del Method Mechanical Ventil ation 03/25/24 09:00 O2 Flow Rate 7 03/19/24 08:00 FiO2 30 03/25/24 09:00 Oxygen Flow Rate 11 03/18/24 15:30 BMI result Body Mass Index 31.7 General: In mild acute distress, chronically ill and tired appearing Nutritional Appearance: well nourished and overweight Eyes: appearance normal, both eyes and all related structures; Alignment and Position: alignment normal and position normal Neck: No lymphadenopathy, no thyromegaly Resp: bilateral air entry equal, bilateral wheezes heard Cardio: Regular rate, regular rhythm; Heart sounds: S1 normal heart sound present and S2 normal heart sound present GI: soft, nontender, no guarding, no hepatosplenomegaly : bladder normal to inspection, bladder normal to palpation, no renal angle tenderness Skin: no rashes or lesions noted and elasticity normal Neuro: No focal deficits, moves all extremities Objective Data Labs 03/25/24 04:46 03/25/24 04:46 Labs: Laboratory Results - last 24 hr 03/24/24 03/24/24 03/24/24 11:19 17:44 23:10 WBC RBC Hgb Hct MCV MCH MCHC RDW Plt Count MPV Immature Gran % (Auto) Neut % (Auto) Lymph % (Auto) [place] % (Auto) Eos % (Auto) Baso % (Auto) Lymph # (Auto) [place] # (Auto) Eos # (Auto) Baso # (Auto) Abs Immat Gran (auto) Absolute Neuts (auto) Absolute Nucleated RBC Nucleated RBC % (auto) VBG pH VBG pCO2 VBG pO2 VBG HCO3 VBG O2 Saturation VBG Base Excess Sodium Potassium Chloride Carbon Dioxide Anion Gap BUN Creatinine Estim Creat Clear Calc Estimated GFR POC Glucose 282 H 193 H 241 H Random Glucose Calcium Phosphorus Magnesium Total Bilirubin AST ALT Alkaline Phosphatase Total Protein Albumin 0203/25/24 03/25/24 04:46 04:52 05:35 WBC 19.0 H RBC 4.06 L Hgb 12.0 L Hct 39.3 L MCV 96.8 MCH 29.6 MCHC 30.5 L RDW 14.5 Plt Count 146 L MPV 12.0 Immature Gran % (Auto) 0.6 H Neut % (Auto) 86.6 H Lymph % (Auto) 6.5 L [place] % (Auto) 3.7 Eos % (Auto) 2.4 Baso % (Auto) 0.2 Lymph # (Auto) 1.2 [place] # (Auto) 0.7 Eos # (Auto) 0.5 H Baso # (Auto) 0.0 Abs Immat Gran (auto) 0.11 H Absolute Neuts (auto) 16.5 H Absolute Nucleated RBC 0.000 Nucleated RBC % (auto) 0.0 VBG pH 7.50 H VBG pCO2 42 VBG pO2 49 VBG HCO3 33 H VBG O2 Saturation 82.0 VBG Base Excess 9.0 Sodium 141 Potassium 4.5 Chloride 104 Carbon Dioxide 28 Anion Gap 14 BUN 27 H Creatinine 0.92 Estim Creat Clear Calc 103.6 Estimated GFR > 60 POC Glucose 289 H Random Glucose 288 H Calcium 8.5 Phosphorus 2.6 L Magnesium 2.7 H Total Bilirubin 0.5 AST 46 H ALT 46 H Alkaline Phosphatase 101 Total Protein 6.5 Albumin 2.9 L Microbiology Microbiology Results: Microbiology 03/24/24 14:50 Sputum - Suctioned Gram Stain - Final 03/14/24 17:45 Blood - Venous Blood Culture - Final No growth after 5 days. 03/14/24 17:45 Blood - Venous Blood Culture - Final No growth after 5 days. Progress Note: A&P Assessment and plan (1) Non-ST elevation [place] (NSTEMI): Status: Acute (2) Leukocytosis: Status: Acute (3) Encephalopathy: Status: Acute (4) Acute exacerbation of chronic obstructive pulmonary disease (COPD): Status: Acute (5) Respiratory failure with hypoxia and hypercapnia: Status: Acute (6) Pneumonia: Status: Acute (7) COPD (chronic obstructive pulmonary disease): Status: Acute (8) Acute respiratory failure with hypercapnia: Status: Acute (9) Pulmonary edema: Status: Acute Plan 63-year-old gentleman with underlying diabetes mellitus, TBI, seizure disorder, COPD admitted on 03/15/2024 with dyspnea. Patient initially noted to be in respiratory acidosis that improved with application of BiPAP. His respiratory viral panel was negative. CT angio chest showed evidence of pulmonary emboli, but some pulmonary edema. He was treated with diuretic with improvement in his blood gases and downgraded to telemetry victoria. Patient continued with intermittent CO2 retention and noncompliance with nocturnal BiPAP therapy resulting worsening CO2 retention requiring daytime BiPAP application. However, patient was not compliant with daytime BiPAP requiring intubation and ventilatory support. Neuro: Acute encephalopathy possibly due to metabolic encephalopathy Propofol and fentanyl has been weaned off. Currently only on Precedex for anxiolysis, weaning for pressure support trials Close neurological status monitoring in the ICU every hour Continue lithium and topiramate given significant history of schizoaffective disorder Cardiac: Shock: Improved, off vasopressor support TTE showed normal EF Respiratory: Acute hypoxemic respiratory failure due to Currently on ventilator support On PRVC mode FiO2 35%, PEEP 5, TV 400, RR 20, tolerated pressure support all night and this morning had poor minute ventilation. However he remains off high-risk for intubation given noncompliance to BiPAP had underlying severe COPD. This has been explained to his sister Tran, who stated that he had similar episode 1.5 years ago where he was intubated multiple times due to noncompliance to BiPAP at [facility]. He has been stable without BiPAP since then. If the time comes where he needs repeated re-intubation due to noncompliance to the BiPAP she might consider making him DNI. Peak pressures and plateau pressures are under the curve Ventilator management bundle with head end elevation, aspiration precaution, chlorhexidine mouthwash, daily awakening trials, daily spontaneous breathing trials GI: Continue tube feeds Renal: Normal renal function, good urine output We will closely monitor I's and O's Avoid nephrotoxic medications Heme: Chronic anemia, closely monitor H&H, transfuse for hemoglobin less than 7 grams/deciliter Endocrine: Diabetes mellitus: Blood sugars not under control On Lantus 20 units daily, will increase to 25U Sliding scale insulin as needed Infectious disease: Pancultures negative Leukocytosis slightly better 19k, low-grade fevers started on Zosyn for aspiration pneumonia pending sputum culture Musculoskeletal: Decubitus ulcer prevention protocol Lines: Peripheral Prophylaxis: Lovenox, famotidine Quality Stroke Does the patient have a stroke diagnosis?: No VTE Prior VTE?: No VTE Risk Level:: Medical - moderate - high VTE Device Contraindication: Treatment Not Indicated VTE Drug Contraindication: N/A - Med Ordered
--- NOTE | 2024-03-25 12:08 | HO.WOUND ---
Wound Consult: Follow up 63yr old?[place] [facility] [place] - See progress notes and H&P for detailed history.? Wound consult follow up for wound to lip - device related.? Patient is intubated and remains in ICU level of care. Upper lip pictures above. Significant improvment noted - the redness and swelling has resolved from the upper lip. The left site remains nonblanchable but is resolving. The upper inner lip was assessed again noted for decreased swelling. The site continues with yellow slough - suspect pseudo slough to wound bed given assessment of lower inner lip. Continue oral care and off loading site. The inner lower lip was assessed and too showed signs of tissue improvement the wound bed appears red moist and no observed yellow slough noted to the wound bed. Given the speed of the improvement pseudo slough may have been present. No new topical recommendations needed at this time. Continue to off load and perform oral care. Outer Upper Lip - Cleanse with NS moist gauze, pat dry. Apply skin prep allow to dry. may leave open to air at this time. Bilateral Inner Upper and Lower Lip - Provide frequent oral care and continue to off load pressure with frequent movement of the Tube resting site and the ET Tube [place] Device should remain on chin while injury is resolving. Detailed from previous admission: Upper Lip Swelling and pink blanchable tissue noted Upper Lip - area of friction and mucosa pressure injury noted - of note the patient was noted to have a thick perez that was not shaved prior to Fredy ET Tube [place] application. This likely impacted the development of the friction / mucosal injury noted to the outer upper lip. Since has been shaved and converted to the [place] Anchorfast inverted to sit on chin - off loading pressure from site and eliminating friction. 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 irregular Sarai wound: ? Intact moist mucosa with some firm Induration noted to periwound, No Fluctuance noted Goals of Treatment: ? Off load pressure continue to not use Fredy ET Tube [place] and Frequent mouth care. Of note the Fredy ET Tube [place] was used beginning 03/19/24 - this was converted back to the [place] Anchorfast inverted to sit on chin in order to off load pressure from the lips. The Fredy was noted to not allow for the ET tube to be moved to off load pressure. Recommendations: 1. Turn and Reposition every 2 hours and as needed for patient comfort.? Use pillows or wedges to support off loading positions. 2. Off Load all bony prominences with use of pillows and heel boots if needed.? Apply Preventative foams where needed. ? 3. Monitor for incontinence and moisture control, use barrier creams when needed for prevention and treatment. 4. Provide adequate and supplemental nutrition.? 5. Order low air loss mattress. 6. When applicable maintain blood glucose levels per Providers order. 7. Outer Upper Lip - Cleanse with NS moist gauze, pat dry. Apply skin prep allow to dry. may leave open to air at this time. 8. Bilateral Inner Upper and Lower Lip - Provide frequent oral care and continue to off load pressure with frequent movement of the Tube resting site and the ET Tube [place] Device should remain on chin while injury is resolving. Re-consult wound care Nurse for wound deterioration or wound changes.
[2024-03-25 12:14] LABS: Glucose, Whole Blood 299 mg/dL (60-115)
--- NOTE | 2024-03-25 14:46 | MHC.CM.PN ---
Pt remains intubated - slow weaning attempts in progress. Pt is a LTC resident of [facility] and will return when medically stable. CM to follow
[2024-03-25] MEDS: dexmedeTOMIDidine HCL/NS 400 MCG/100 ML INFUS..BTL 13.61 MCG IVCONT (17:26)
[2024-03-25 17:56] LABS: Glucose, Whole Blood 194 mg/dL (60-115)
[2024-03-25 23:23] LABS: Glucose, Whole Blood 143 mg/dL (60-115)
[2024-03-25] MEDS: dexmedeTOMIDidine HCL/NS 400 MCG/100 ML INFUS..BTL 27.23 MCG IVCONT (23:33)
[2024-03-26] VITALS (24 sets, daily range): BP systolic 92–122; BP diastolic 48–75; PULSE 45–61; RESP 13–32; TEMP 36.7–38.1; O2SAT 89–98; BMI 31.7
[2024-03-26] MEDS: Piperacillin Sodium/Tazobactam 4.5 GM in 0.9 % Sodium Chloride 100 ML IV ×4 (02:46→21:09)
[2024-03-26] MEDS: dexmedeTOMIDidine HCL/NS 400 MCG/100 ML INFUS..BTL 21.78 MCG IVCONT ×5 (03:15→21:18)
[2024-03-26 05:12] LABS: VBG Base Excess 8.6 mmol/L; VBG HCO3 36 mmol/L (22-26); VBG pCO2 66 mmHg; VBG pH 7.35 (7.32-7.43); VBG pO2 45 mmHg
[2024-03-26 05:39] LABS: MANUAL DIFF FLAG NO
[2024-03-26 05:42] LABS: Basophils Absolute Auto 0.1 X10*3/uL (0.0-0.2); Basophils Percent Auto 0.3 % (0-2); Eosinophils Absolute Auto 0.4 X10*3/uL (0.0-0.4); Eosinophils Percent Auto 2.7 % (0-4); Hemoglobin 12.4 g/dl (14.0-18.0); Imm Gran Abs Auto 0.11 X10*3/uL (0.00-0.03); Imm Gran Pct Auto 0.7 % (0.0-0.4); Lymphocytes Absolute Auto 1.4 X10*3/uL (1.2-4.9); Lymphocytes Percent Auto 8.8 % (20-40); Mean Corpuscular HGB Conc 30.2 g/dl (31.0-36.0); Mean Corpuscular Hemoglobin 29.7 pg (27.0-33.0); Mean Corpuscular Volume 98.3 fL (80.0-98.0); Mean Platelet Volume 11.7 fL (9.4-12.4); Monocytes Absolute Auto 0.8 X10*3/uL (0.1-1.2); Monocytes Percent Auto 4.8 % (2-11); Neutrophils Percent Auto 82.7 % (45-73); Platelet Count 155 X10*3/uL (160-400); Red Blood Count 4.17 X10*6/uL (4.60-5.80); Red Cell Distribution Width 14.5 % (11.0-16.0); White Blood Count 15.7 X10*3/uL (4.8-10.8)
[2024-03-26 05:44] LABS: Venous Blood Gas Refer to POC result
[2024-03-26 06:03] LABS: Alanine Aminotransferase 56 U/L (0-40); Alkaline Phosphatase 100 U/L (39-117); Anion Gap 13 (12-20); Aspartate Amino Transferase 41 U/L (5-37); Bilirubin Total 0.7 mg/dL (0.0-1.0); Blood Urea Nitrogen 24 mg/dL (9-16); Calcium 8.6 mg/dL (8.4-10.2); Carbon Dioxide 33 mmol/L (22-29); Chloride 105 mmol/L (96-108); Creatinine Clr Calc Pharmacy 101.3; Estimated Glomerular Filt Rate > 60; Glucose Random 154 mg/dL (60-115); Magnesium 2.7 mg/dL (1.6-2.6); Phosphorus 3.9 mg/dL (2.7-4.5); Potassium 4.7 mmol/L (3.3-5.1); Sodium 146 mmol/L (135-145); Total Protein 6.7 g/dL (6.5-8.0)
[2024-03-26 06:22] LABS: Glucose, Whole Blood 152 mg/dL (60-115)
--- NOTE | 2024-03-26 06:27 | HO.SKINPHOTO ---
Location: coccyx Category: Stage: Length: Width: Depth: cm Location:Stage: Length: Width: Depth: cm Location: Category: Stage: Length: Width: Depth: cm Location: Category: Stage: Length: Width: Depth: cm Location: Category: Stage: Length: Width: Depth: cm Category: Location: Category: Stage: Length: Width: Depth: cm
[2024-03-26] MEDS: Enoxaparin Sodium 40 MG/0.4 ML SYRINGE SUBCUT (08:20)
[2024-03-26] MEDS: Famotidine/PF 20 MG/2 ML VIAL IVPUSH (08:21)
[2024-03-26] MEDS: Insulin Glargine,Hum.rec.anlog 100 UNIT/ML 10 ML VIAL 15 UNIT SUBCUT (08:37)
--- NOTE | 2024-03-26 09:00 | PM.CCPN ---
Subjective Subjective Date of Service: 03/26/24 Critical Care Time (minutes): 35 Comment: Extubated yesterday, significant psychosis present and he is refusing BiPAP and oxygen support. Poor swallow, will withold feeds Physical Exam Vital Signs: Vital Signs: Last Vital Signs Temp 99.0 F 03/26/24 08:00 Pulse 57 03/26/24 08:00 Resp 25 H 03/26/24 08:00 BP 117/75 03/26/24 08:00 Pulse Ox 98 03/26/24 08:00 O2 Del Method Oxymask 03/26/24 08:00 O2 Flow Rate 2 03/26/24 08:00 FiO2 35 03/25/24 19:05 Oxygen Flow Rate 11 03/18/24 15:30 BMI result Body Mass Index 31.7 General: Not in acute distress, confused, lying in the bed Nutritional Appearance: well nourished and overweight Eyes: appearance normal, both eyes and all related structures; Alignment and Position: alignment normal and position normal Neck: No lymphadenopathy, no thyromegaly Resp: bilateral air entry equal, occasional added sounds present Cardio: Regular rate, regular rhythm; Heart sounds: S1 normal heart sound present and S2 normal heart sound present GI: soft, nontender, no guarding, no hepatosplenomegaly : bladder normal to inspection, bladder normal to palpation, no renal angle tenderness Skin: no rashes or lesions noted and elasticity normal Neuro: Confused, psychotic, no focal deficits moves all extremities Objective Data Labs 03/26/24 05:04 03/26/24 05:04 Labs: Laboratory Results - last 24 hr 03/25/24 03/25/24 03/25/24 12:10 17:52 23:15 WBC RBC Hgb Hct MCV MCH MCHC RDW Plt Count MPV Immature Gran % (Auto) Neut % (Auto) Lymph % (Auto) [place] % (Auto) Eos % (Auto) Baso % (Auto) Lymph # (Auto) [place] # (Auto) Eos # (Auto) Baso # (Auto) Abs Immat Gran (auto) Absolute Neuts (auto) Absolute Nucleated RBC Nucleated RBC % (auto) VBG pH VBG pCO2 VBG pO2 VBG HCO3 VBG O2 Saturation VBG Base Excess Sodium Potassium Chloride Carbon Dioxide Anion Gap BUN Creatinine Estim Creat Clear Calc Estimated GFR POC Glucose 299 H 194 H 143 H Random Glucose Calcium Phosphorus Magnesium Total Bilirubin AST ALT Alkaline Phosphatase Total Protein Albumin 03/26/24 03/26/24 03/26/24 05:04 05:06 06:18 WBC 15.7 H RBC 4.17 L Hgb 12.4 L Hct 41.0 L MCV 98.3 H MCH 29.7 MCHC 30.2 L RDW 14.5 Plt Count 155 L MPV 11.7 Immature Gran % (Auto) 0.7 H Neut % (Auto) 82.7 H Lymph % (Auto) 8.8 L [place] % (Auto) 4.8 Eos % (Auto) 2.7 Baso % (Auto) 0.3 Lymph # (Auto) 1.4 [place] # (Auto) 0.8 Eos # (Auto) 0.4 Baso # (Auto) 0.1 Abs Immat Gran (auto) 0.11 H Absolute Neuts (auto) 13.0 H Absolute Nucleated RBC 0.000 Nucleated RBC % (auto) 0.0 VBG pH 7.35 VBG pCO2 66 VBG pO2 45 VBG HCO3 36 H VBG O2 Saturation 68.0 VBG Base Excess 8.6 Sodium 146 H Potassium 4.7 Chloride 105 Carbon Dioxide 33 H Anion Gap 13 BUN 24 H Creatinine 0.94 Estim Creat Clear Calc 101.3 Estimated GFR > 60 POC Glucose 152 H Random Glucose 154 H Calcium 8.6 Phosphorus 3.9 Magnesium 2.7 H Total Bilirubin 0.7 AST 41 H ALT 56 H Alkaline Phosphatase 100 Total Protein 6.7 Albumin 3.0 L Microbiology Microbiology Results: Microbiology 03/24/24 14:50 Sputum - Suctioned Gram Stain - Final 03/24/24 14:50 Sputum - Suctioned Sputum Culture - Preliminary Culture in progress. 03/14/24 17:45 Blood - Venous Blood Culture - Final No growth after 5 days. 03/14/24 17:45 Blood - Venous Blood Culture - Final No growth after 5 days. Progress Note: A&P Assessment and plan (1) Non-ST elevation [place] (NSTEMI): Status: Acute (2) Acute exacerbation of chronic obstructive pulmonary disease (COPD): Status: Acute (3) Respiratory failure with hypoxia and hypercapnia: Status: Acute (4) Pneumonia: Status: Acute (5) COPD (chronic obstructive pulmonary disease): Status: Acute Plan 63-year-old gentleman with underlying diabetes mellitus, TBI, seizure disorder, COPD admitted on 03/15/2024 with dyspnea. Patient initially noted to be in respiratory acidosis that improved with application of BiPAP. His respiratory viral panel was negative. CT angio chest showed evidence of pulmonary emboli, but some pulmonary edema. He was treated with diuretic with improvement in his blood gases and downgraded to telemetry victoria. Patient continued with intermittent CO2 retention and noncompliance with nocturnal BiPAP therapy resulting worsening CO2 retention requiring daytime BiPAP application. However, patient was not compliant with daytime BiPAP requiring intubation and ventilatory support. Neuro: Acute encephalopathy possibly due to significant psych history On Precedex drip due to significant agitation, Close neurological status monitoring in the ICU every hour Can not give lithium and topiramate due to failed swallow eval, he has a significant history of schizoaffective disorder we will consult Psychiatry Cardiac: TTE showed normal EF Respiratory: Acute hypoxemic respiratory failure due to Extubated yesterday, currently saturations okay on OxyMask but patient continuously pulling the OxyMask. However he remains off high-risk for intubation given noncompliance to BiPAP had underlying severe COPD. This has been explained to his sister Tran, who stated that he had similar episode 1.5 years ago where he was intubated multiple times due to noncompliance to BiPAP at [facility]. He has been stable without BiPAP since then. If the time comes where he needs repeated re-intubation due to noncompliance to the BiPAP she might consider making him DNI. GI: Continue tube feeds Renal: Normal renal function, good urine output We will closely monitor I's and O's Avoid nephrotoxic medications Heme: Chronic anemia, closely monitor H&H, transfuse for hemoglobin less than 7 grams/deciliter Endocrine: Diabetes mellitus: Blood sugars under control On Lantus 20 units daily, will decrease to 15 units as he is NPO Sliding scale insulin as needed Infectious disease: Pancultures negative Leukocytosis slightly better 19k, low-grade fevers started on Zosyn for aspiration pneumonia pending sputum culture Musculoskeletal: Decubitus ulcer prevention protocol Lines: Peripheral Martins- will take it off Prophylaxis: Lovenox, famotidine Quality Stroke Does the patient have a stroke diagnosis?: No VTE Prior VTE?: No VTE Risk Level:: Medical - moderate - high VTE Device Contraindication: Treatment Not Indicated VTE Drug Contraindication: N/A - Med Ordered
--- NOTE | 2024-03-26 10:28 | MHC.CLN ---
Addendum entered by Beatriz Mckeon RD 03/26/24 13:49: SEEN BY DEPUTY DIRECTOR WITH REC FOR GROUND DIET WITH NECTAR THICK LIQUIDS. ORDER CHANGED PER MD. FOLLOW FOR PO INTAKE AND DIET TOLERANCE. Original Note: F/U PATIENT EXTUBATED 03/25 IN PM. DIET=NPO DUE TO POOR SWALLOW. FOLLOW FOR PLAN OF CARE FOR ALTERNATE NUTRITION.
[2024-03-26 12:08] LABS: Glucose, Whole Blood 126 mg/dL (60-115)
[2024-03-26] MEDS: Lithium Carbonate 300 MG CAPSULE PO ×2 (13:58→21:12)
[2024-03-26] MEDS: Aspirin Enteric Coated 81 MG TABLET.DR PO (13:58)
[2024-03-26] MEDS: Lithium Carbonate 300 MG TABLET 150 MG PO ×2 (13:58→21:12)
--- NOTE | 2024-03-26 14:07 | PC.NURSE ---
Addendum entered by Yohan Odonnell RN 03/26/24 17:13: MD stated to have RT deep suction pt and place pt on Bipap. RT informed Original Note: per ok to administer PO meds late now that pt was evaluated by ST and has diet order
--- NOTE | 2024-03-26 14:29 | MHC.SL.SWA ---
Speech Pathologist Impression: Risk of Aspiration Due to: Neurological Condition History of Pneumonia Hx of Recent Extubation Reduced Cognition Dysphasia Diet Status: Liquid Consistency and Strategies for Safe Swallow: Liquid Intake Recommendation: [place] Thick Liquid Intake Strategies: Small Sips Solid Food Consistency: Dietary Recommendations: Grnd/Mech Altered (NDD2) Additional Modifications to Solid Foods: Patient is able to move upper extremities and attempts to feed self, but is clumsy and will need direct assistance initially with meals. Patient should have at a minimum nasal cannula with meals, along with available oxy mask for frequent O2 breaks during meal and will need direction and assistance with this. Oral Medication Intake: Whole with Puree Please contact the pharmacy regarding appropriate crushable or liquid drug formulations that are available whenever modified delivery is recommended. Compensatory Strategies and Precautions to be Taken for Safe Swallow: Sitting Upright (90 deg) Liquids from Cup Liquids from Spoon Small Bites and Sips Alternate Liquids/Solids Supervision While Eating and Drinking for Safe Swallow: Total Supervision (1:1) Foods to Avoid: Conservative diet to start secondary to recent extubation and respiratory status. CHAMBER WALKER will follow and advance diet as indicated (Baseline is Regular/thin) Swallowing Recommended Treatments: Compens. Strategy Educat. Recommendation for Speech: Inpatient Speech Therapy Comment: Patient is s/p intubation and presents with vulnerable respiratory status, quickly de-sats when eating and off oxygen. Patient presents with mild to moderate oral phase dysphagia today, with difficulties secondary to oral coordination/bolus management. Recommend START diet of Ground/Mechanical (NDD2) with NECTAR THICK liquids by tsp or controlled cup sip, pills crushed or whole in puree. Patient demonstrates high level of impulsivity, may try to chug liquids if given cup. Patient will require nasal cannula during meals AND frequent breaks on 02 mask due to rapid desaturation noted off oxygen. Supervision of these elements with assistance as needed is required for meals at this time. MD, RN, RD notified of recommendation by secure text, also discussed with MD in person. CHAMBER WALKER will continue to follow. Frequency/Duration: M-F while inpatient. Date Range for Service Req: Timeline to reassess: Coffee Brewer Clinican/Clinical Fellow: No Supervisory Statement: I have reviewed and agree with the student/clinical fellow's documentation: N/A Speech Language Pathologist: Hali Barrera M.A., [facility]
--- NOTE | 2024-03-26 15:55 | P.CNHOSGPS_ITS ---
History of Present Illness Data of Consult Service Date: 03/26/24 Requesting physician: Emmett Comer Primary Care Provider: DO AGUSTO Dueñas Reason for consult: Assessment of psychosis The patient is a 63-year-old male with a past history of traumatic brain injury, pulmonary edema, COPD, acute respiratory failure was brought in admitted into the hospital after he was in respiratory failure. He was initially treated and later on transferred to ICU and intubated. The patient had been poorly compliant with BiPAP. On interview the patient was able to recall some of the facts how he come into the hospital, he has very poor memory he was confused at times but easily redirectable. He reported that he takes medications for Psychiatry but he does not know what kind of treatment. According to the chart, and discontinue records that we have from mental health, the patient has a diagnosis of traumatic brain injury and most likely mood disorder since he is on lithium but there is no evidence of use of antipsychotics. The case was discussed with Dr. Comer and most likely it will be dumont to start a low dose of Haldol and p.r.n. and stay away benzodiazepines the kill worsen his delirium. [facility] Medical History (Updated 03/21/24 @ 10:09 by Daniel Blanton MD) Leukocytosis COPD (chronic obstructive pulmonary disease) TBI (traumatic brain injury) Functional capacity: bed bound Social History Household Members: None Housing: Assisted Living Facility Do you presently have visiting nurse or other home services: No ([facility]) Patient Tobacco Use Status: Current everyday Tobacco user Tobacco use type: Cigarette Cigarettes Per Day: 8 e-Cigarette/Vaping Use: Never Used Second Hand Smoke Exposure: No Advance Directives Date on File: 03/15/24 Meds Allergies Allergy/AdvReac Type Severity Reaction Status Date / Time vancomycin Allergy Severe Redness of Verified 03/24/24 11:27 Skin Active Medications: Current Medications Aspirin (Aspirin Enteric Coated 81 Mg Tablet.) 81 mg PO DAILY [facility] Last Admin: 03/26/24 13:58 Dose: 81 mg Bisacodyl (Bisacodyl 5 Mg Tablet.) 10 mg PO BEDTIME [facility] Last Admin: 03/25/24 20:44 Dose: Not Given Chlorhexidine Gluconate (Chlorhexidine Gluc Oral Rinse 15 Ml Mouthwash) 15 ml BUCCAL TID [facility] Last Admin: 03/26/24 13:41 Dose: Not Given Diphenhydramine HCl (Diphenhydramine Hcl 50 Mg/Ml Vial) 25 mg IVPUSH Q6H PRN PRN Reason: itching Last Admin: 03/19/24 11:28 Dose: 25 mg Enoxaparin Sodium (Enoxaparin Sodium 40 Mg/0.4 Ml Syringe) 40 mg SUBCUT Q24H [facility] Last Admin: 03/26/24 08:20 Dose: 40 mg Famotidine (Famotidine/Pf 20 Mg/2 Ml Vial) 20 mg IVPUSH DAILY [facility] Last Admin: 03/26/24 08:21 Dose: 20 mg Norepinephrine Bitartrate (Levophed) 8 mg in 250 mls @ 0 mls/hr IVCONT .Q0M JENNIFER; Protocol Last Titration: 03/25/24 01:11 Dose: Infused Propofol (Diprivan) 1,000 mg in 100 mls @ 0 mls/hr IVCONT .Q0M JENNIFER; Protocol Last Titration: 03/23/24 14:36 Dose: Infused Dexmedetomidine HCl (Precedex) 400 mcg in 100 mls @ 0 mls/hr IVCONT .Q0M JENNIFER; Protocol Last Admin: 03/26/24 12:17 Dose: 0.8 mcg/kg/hr, 21.78 mls/hr Piperacillin Sod/Tazobactam (Sod 4.5 gm/ Sodium Chloride) 100 mls @ 200 mls/hr IV Q6H [facility] Last Infusion: 03/26/24 15:45 Dose: Infused Insulin Glargine (Insulin Glargine,Hum.Rec.Anlog 100 Unit/Ml 10 Ml Vial) 15 unit SUBCUT DAILY [facility] Last Admin: 03/26/24 08:37 Dose: 15 unit Insulin Human Lispro (Insulin Lispro 100 Unit/Ml 3 Ml Vial) 0 unit SUBCUT Q6H [facility]; Protocol Last Admin: 03/26/24 11:42 Dose: Not Given Marine Carbonate (Marine Carbonate 300 Mg Capsule) 300 mg PO BID [facility] Last Admin: 03/26/24 13:58 Dose: 300 mg Marine Carbonate (Marine Carbonate 300 Mg Tablet) 150 mg PO BID [facility] Last Admin: 03/26/24 13:58 Dose: 150 mg Ondansetron HCl (Ondansetron Hcl 4 Mg/2 Ml Vial) 4 mg IVPUSH Q8H PRN PRN Reason: Nausea and Vomiting Polyethylene Glycol (Polyethylene Glycol 3350 17 Gm Powd.Pack) 17 gm PO DAILY [facility] Last Admin: 03/26/24 07:59 Dose: Not Given Senna/Docusate Sodium (Sennosides/Docusate Sodium Tablet) 1 tab PO BID PRN PRN Reason: Constipation Sodium Chloride (0.9 % Sodium Chloride Flush 3 Ml Syringe) 3 ml IVFLUSH QSHIFT [facility] Last Admin: 03/26/24 14:01 Dose: Not Given Tamsulosin HCl (Tamsulosin Hcl 0.4 Mg Capsule) 0.4 mg PO BEDTIME [facility] Last Admin: 03/18/24 22:51 Dose: Not Given Topiramate (Topiramate 25 Mg Tablet) 50 mg PO BID [facility] Last Admin: 03/19/24 10:21 Dose: Not Given Home Medications ?Medication ?Instructions ?Recorded ?Confirmed ?Last Taken ?Type acetaminophen 325 mg tablet 650 mg PO Q6H PRN Fever Or Pain 03/15/24 03/15/24 Unknown History albuterol sulfate 90 mcg/actuation 2 puff inhalation Q6H PRN 03/15/24 03/15/24 Unknown History aerosol inhaler Bronchospasm aspirin 81 mg tablet,delayed 81 mg PO DAILY 03/15/24 03/15/24 Unknown History release atorvastatin 10 mg tablet 10 mg PO BEDTIME 03/15/24 03/15/24 Unknown History bisacodyl 10 mg rectal suppository 10 mg WA DAILY PRN constipation if 03/15/24 03/15/24 Unknown History senna ineffective fexofenadine 180 mg tablet 180 mg PO DAILY 03/15/24 03/15/24 Unknown History fluticasone furoate 100 1 inh inhalation DAILY 03/15/24 03/15/24 Unknown History mcg-vilanterol 25 mcg/dose inhalation powder (Breo Ellipta) guaifenesin 200 mg/5 mL oral liquid 400 mg PO Q4H PRN Congestion 03/15/24 03/15/24 Unknown History ibuprofen 600 mg tablet 600 mg PO Q8H PRN Pain 03/15/24 03/15/24 Unknown History insulin NPH isoph U-100 human 100 12 unit subcut BEDTIME 03/15/24 03/15/24 Unknown History unit/mL subcutaneous suspension (Humulin N NPH U-100 Insulin (isophane susp)) insulin NPH isoph U-100 human 100 18 unit subcut DAILY 03/15/24 03/15/24 Unknown History unit/mL subcutaneous suspension (Humulin N NPH U-100 Insulin (isophane susp)) lithium carbonate 150 mg capsule 150 mg PO BID 03/15/24 03/15/24 Unknown History lithium carbonate 300 mg capsule 300 mg PO BID 03/15/24 03/15/24 Unknown History lorazepam 1 mg tablet 1 mg PO BID 03/15/24 03/15/24 Unknown History melatonin 3 mg tablet 9 mg PO BEDTIME 03/15/24 03/15/24 Unknown History metformin 500 mg tablet 500 mg PO BID 03/15/24 03/15/24 Unknown History ondansetron HCl 8 mg tablet 8 mg PO Q6H PRN nausea/vomiting 03/15/24 03/15/24 Unknown History peg [id number] 1 2 drp ophthalmic (eye) Q8H PRN 03/15/24 03/15/24 Unknown History %-0.2 %-0.2 % eye drops itchy eyes (Artificial Tears ([id number])) propranolol 10 mg tablet 5 mg PO BID 03/15/24 03/15/24 Unknown History sennosides 8.6 mg-docusate sodium 1 tab-cap PO BID 03/15/24 03/15/24 Unknown History 50 mg tablet (Senna with Docusate Sodium) simethicone 80 mg tablet 80 mg PO Q6H PRN 03/15/24 03/15/24 Unknown History flatulence/bloating sodium phosphates 19 gram-7 118 ml [place] DAILY PRN constipation 03/15/24 03/15/24 Unknown History gram/118 mL enema (Fleet Enema) if bisacodyl supp ineffective tamsulosin 0.4 mg capsule 0.4 mg PO BEDTIME 03/15/24 03/15/24 Unknown History tiotropium bromide 2.5 2 puff inhalation DAILY 03/15/24 03/15/24 Unknown History mcg/actuation mist for inhalation (Spiriva Respimat) topiramate 50 mg tablet 50 mg PO BID 03/15/24 03/15/24 Unknown History trazodone 50 mg tablet 75 mg PO BEDTIME 03/15/24 03/15/24 Unknown History Results Labs 03/26/24 05:04 03/26/24 05:04 Labs: Laboratory Results - last 24 hr 03/25/24 03/25/24 03/26/24 17:52 23:15 05:04 MCV 98.3 H MCH 29.7 MCHC 30.2 L RDW 14.5 Plt Count 155 L MPV 11.7 Immature Gran % (Auto) 0.7 H Neut % (Auto) 82.7 H Lymph % (Auto) 8.8 L [place] % (Auto) 4.8 Eos % (Auto) 2.7 Baso % (Auto) 0.3 Lymph # (Auto) 1.4 [place] # (Auto) 0.8 Eos # (Auto) 0.4 Baso # (Auto) 0.1 Abs Immat Gran (auto) 0.11 H Absolute Neuts (auto) 13.0 H Absolute Nucleated RBC 0.000 Nucleated RBC % (auto) 0.0 VBG pH VBG pCO2 VBG pO2 VBG HCO3 VBG O2 Saturation VBG Base Excess Anion Gap 13 Estim Creat Clear Calc 101.3 Estimated GFR > 60 POC Glucose 194 H 143 H Random Glucose 154 H Calcium 8.6 Phosphorus 3.9 Magnesium 2.7 H Total Bilirubin 0.7 AST 41 H ALT 56 H Alkaline Phosphatase 100 Total Protein 6.7 Albumin 3.0 L 03/26/24 03/26/24 03/26/24 05:06 06:18 11:38 MCV MCH MCHC RDW Plt Count MPV Immature Gran % (Auto) Neut % (Auto) Lymph % (Auto) [place] % (Auto) Eos % (Auto) Baso % (Auto) Lymph # (Auto) [place] # (Auto) Eos # (Auto) Baso # (Auto) Abs Immat Gran (auto) Absolute Neuts (auto) Absolute Nucleated RBC Nucleated RBC % (auto) VBG pH 7.35 VBG pCO2 66 VBG pO2 45 VBG HCO3 36 H VBG O2 Saturation 68.0 VBG Base Excess 8.6 Anion Gap Estim Creat Clear Calc Estimated GFR POC Glucose 152 H 126 H Random Glucose Calcium Phosphorus Magnesium Total Bilirubin AST ALT Alkaline Phosphatase Total Protein Albumin Assessment and Plan (1) Encephalopathy: Qualifiers: Encephalopathy type: unspecified encephalopathy Qualified Code(s): G 93.40 - Encephalopathy, unspecified Status: Acute (2) TBI (traumatic brain injury): Status: Acute (3) COPD (chronic obstructive pulmonary disease): Status: Acute (4) Pulmonary edema: Status: Acute (5) Acute respiratory failure with hypercapnia: Status: Acute Plan The patient is a 63-year-old male, with a past history of traumatic brain injury, encephalopathy, COPD pulmonary edema admitted for respiratory failure that needed to be intubated the certain point. The patient has a past history of mental illness he is a very poor historian but apparently he lives in a fpc and suddenly he had respiratory symptoms and was admitted into the hospital for medical stabilization. The present consult was asked to assess for disorganized behavior. On interview, the patient was able to provide some information but he looks sporadically confused most likely on delirium. Diagnosis 1. Delirium induced to hypoxemia. 2. Traumatic brain injury 3. Mood disorder. Plan 1. Keep lithium as prescribed. Recheck levels in 3 days when he is more consistent and compliant.. 2. Haldol 0.5 p.o. t.i.d. to target delirium. 3. Avoid benzodiazepines that it could worsen the delirium and has a paradoxical response. 4. If the patient gets agitated add Haldol 1 mg p.o. Q 8 hours p.r.n. agitation. Did not use more than 5 mg of Haldol a day. 5. Reassessment as demand Total time managing care of this patient today: 40 minutes. Physical Exam Vital Signs: Last Vital Signs Temp 99.9 F 03/26/24 09:00 Pulse 60 03/26/24 15:00 Resp 20 03/26/24 15:00 BP 114/63 03/26/24 15:00 Pulse Ox 96 03/26/24 15:00 O2 Del Method Oxymask 03/26/24 15:00 O2 Flow Rate 2 03/26/24 15:00 FiO2 35 03/25/24 19:05 Oxygen Flow Rate 11 03/18/24 15:30 BMI result Body Mass Index 31.7 Neuro Cranial nerves: Yes CN's II-XII intact bilaterally Psych Appearance: disheveled Speech and movement: Slurred speech present Affect: Labile affect present Attitude: Guarded attititude/behavior present Thought process: Circumstantial thought process present Thought content: other (Poverty of content) Insight: Limited insight present (Psych) Judgement: Limited judgement present (Psych)
[2024-03-26] MEDS: Topiramate 25 MG TABLET 50 MG PO (21:11)
[2024-03-26] MEDS: bisacodyL 5 MG TABLET.DR 10 MG PO (21:11)
[2024-03-26] MEDS: Tamsulosin HCL 0.4 MG CAPSULE PO (21:11)
[2024-03-26] MEDS: HaloperidoL 0.5 MG TABLET PO (21:12)
[2024-03-26 23:50] LABS: Glucose, Whole Blood 128 mg/dL (60-115)
[2024-03-26 23:58] LABS: Glucose, Whole Blood 190 mg/dL (60-115)
[2024-03-27] VITALS (28 sets, daily range): BP systolic 96–162; BP diastolic 50–90; PULSE 46–94; RESP 14–30; TEMP 36.1–36.9; O2SAT 88–99
[2024-03-27] MEDS: Insulin Lispro 100 UNIT/ML 3 ML VIAL SUBCUT ×2 (00:01→12:11)
[2024-03-27] MEDS: 0.9 % Sodium Chloride Flush 3 ML SYRINGE IVFLUSH ×4 (00:03→20:09)
[2024-03-27] MEDS: dexmedeTOMIDidine HCL/NS 400 MCG/100 ML INFUS..BTL 32.67 MCG IVCONT (01:05)
[2024-03-27] MEDS: Piperacillin Sodium/Tazobactam 4.5 GM in 0.9 % Sodium Chloride 100 ML IV ×4 (02:32→20:18)
[2024-03-27] MEDS: dexmedeTOMIDidine HCL/NS 400 MCG/100 ML INFUS..BTL 27.23 MCG IVCONT ×2 (03:50→07:43)
[2024-03-27 04:19] LABS: VBG Base Excess 8.4 mmol/L; VBG HCO3 32 mmol/L (22-26); VBG pCO2 42 mmHg; VBG pH 7.49 (7.32-7.43); VBG pO2 69 mmHg
[2024-03-27 04:21] LABS: Venous Blood Gas Refer to POC result
[2024-03-27 04:36] LABS: Alkaline Phosphatase 95 U/L (39-117)
[2024-03-27 04:37] LABS: Alanine Aminotransferase 72 U/L (0-40); Albumin Level 2.8 g/dL (3.5-5.0); Anion Gap 14 (12-20); Aspartate Amino Transferase 64 U/L (5-37); Bilirubin Total 0.8 mg/dL (0.0-1.0); Blood Urea Nitrogen 22 mg/dL (9-16); Calcium 8.6 mg/dL (8.4-10.2); Carbon Dioxide 28 mmol/L (22-29); Chloride 109 mmol/L (96-108); Creatinine Clr Calc Pharmacy 105.9; Estimated Glomerular Filt Rate > 60; Glucose Random 168 mg/dL (60-115); Magnesium 2.8 mg/dL (1.6-2.6); Phosphorus 3.8 mg/dL (2.7-4.5); Potassium 5.8 mmol/L (3.3-5.1); Sodium 145 mmol/L (135-145); Total Protein 7.2 g/dL (6.5-8.0)
[2024-03-27 05:03] LABS: Basophils Absolute Auto 0.1 X10*3/uL (0.0-0.2); Basophils Percent Auto 0.4 % (0-2); Eosinophils Absolute Auto 0.4 X10*3/uL (0.0-0.4); Eosinophils Percent Auto 2.8 % (0-4); Hematocrit 42.1 % (42.0-52.0); Hemoglobin 12.7 g/dl (14.0-18.0); Imm Gran Abs Auto 0.23 X10*3/uL (0.00-0.03); Imm Gran Pct Auto 1.5 % (0.0-0.4); Lymphocytes Absolute Auto 1.3 X10*3/uL (1.2-4.9); Lymphocytes Percent Auto 8.5 % (20-40); MANUAL DIFF FLAG NO; Mean Corpuscular HGB Conc 30.2 g/dl (31.0-36.0); Mean Corpuscular Hemoglobin 29.3 pg (27.0-33.0); Mean Platelet Volume 11.7 fL (9.4-12.4); Monocytes Absolute Auto 0.9 X10*3/uL (0.1-1.2); Monocytes Percent Auto 5.5 % (2-11); Neutrophils Absolute Auto 12.9 x10*3/uL (2.0-8.3); Neutrophils Percent Auto 81.3 % (45-73); Platelet Count 163 X10*3/uL (160-400); Red Blood Count 4.34 X10*6/uL (4.60-5.80); Red Cell Distribution Width 14.2 % (11.0-16.0); White Blood Count 15.8 X10*3/uL (4.8-10.8)
[2024-03-27] MEDS: Albuterol Sulfate (0.083%) 2.5 MG/3 ML VIAL.NEB 5 MG INHALE (05:45)
[2024-03-27] MEDS: Dextrose 50 % 25 GM/50 ML SYRINGE IVPUSH (06:06)
[2024-03-27] MEDS: Insulin Regular, Human 100 UNIT/ML 10 ML VIAL IVPUSH (06:07)
--- NOTE | 2024-03-27 06:33 | PC.NURSE ---
Upon initial assessment, patient alert and oriented to self and place, vague to situation and time. Moves all extremities spontaneously, grasp weaker to the right hand. Able to follow commands, but resistive to care, often yelling and demanding. SB on tele, HR 40s-50s. Lung sounds rhonchorous, wet loose cough intermittently, able to cough up thick yellow sputum.? Abdomen large round and nontender, hypoactive bowel sounds. Patient 1-1 feed, see diet order for details. Martins catheter removed by previous shift, male purewick in place. Voiding concentrated light cody urine. Skin rash resolving, maceration?to perineal area, see skin assessment. MDPI to bilateral lips, see wound note. Oral care provided as tolerated, patient remains resistive. Denies pain. Patient able to reposition self, refuses help when offered. Bed in lowest possible position, bed alarm on, avasys camera in place for safety. PA aware of all critical labs and changes in patient status.
[2024-03-27] MEDS: Aspirin Enteric Coated 81 MG TABLET.DR PO (08:43)
[2024-03-27] MEDS: Topiramate 25 MG TABLET 50 MG PO ×2 (08:43→20:08)
[2024-03-27] MEDS: HaloperidoL 0.5 MG TABLET PO ×3 (08:44→20:06)
[2024-03-27] MEDS: Insulin Glargine,Hum.rec.anlog 100 UNIT/ML 10 ML VIAL 15 UNIT SUBCUT (08:44)
[2024-03-27] MEDS: Lithium Carbonate 300 MG TABLET 150 MG PO ×2 (08:44→20:06)
[2024-03-27] MEDS: Famotidine/PF 20 MG/2 ML VIAL IVPUSH (08:44)
[2024-03-27] MEDS: Lithium Carbonate 300 MG CAPSULE PO ×2 (08:44→20:09)
[2024-03-27] MEDS: Enoxaparin Sodium 40 MG/0.4 ML SYRINGE SUBCUT (08:45)
[2024-03-27] MEDS: polyethylene glycoL 3350 17 GM POWD.PACK PO (08:45)
[2024-03-27 10:13] LABS: Anion Gap 11 (12-20); Blood Urea Nitrogen 21 mg/dL (9-16); Calcium 8.8 mg/dL (8.4-10.2); Carbon Dioxide 34 mmol/L (22-29); Chloride 107 mmol/L (96-108); Creatinine Clr Calc Pharmacy 100.3; Estimated Glomerular Filt Rate > 60; Glucose Random 266 mg/dL (60-115); Potassium 4.8 mmol/L (3.3-5.1); Sodium 147 mmol/L (135-145)
[2024-03-27 11:59] LABS: Glucose, Whole Blood 262 mg/dL (60-115)
--- NOTE | 2024-03-27 12:59 | PC.RT ---
RT to pt room, ? aspiration of food. Pt color very dusky, spo2 in the 50's with poor to fair pleth. Pt was awke, and using a manual resuscitator was bagged via 100% with MD assist. Pt spo2 recovered, pt transitioned to PNRB, pt spo2 97% returned to 5 lpm n/c. Pt in no distress at this time.
--- NOTE | 2024-03-27 13:56 | PM.CCPN ---
Subjective Subjective Date of Service: 03/27/24 Critical Care Time (minutes): 35 Comment: Patient had episode of desaturations down to 30-40% SpO2 following an aspiration event after having lunch. Precedex tapered off Physical Exam Vital Signs: Vital Signs: Last Vital Signs Temp 98.5 F 03/27/24 12:00 Pulse 92 03/27/24 13:00 Resp 28 H 03/27/24 13:00 BP 162/69 H 03/27/24 13:00 Pulse Ox 98 03/27/24 13:00 O2 Del Method Nasal Cannula 03/27/24 13:00 O2 Flow Rate 4 03/27/24 13:00 FiO2 30 03/27/24 03:00 Oxygen Flow Rate 11 03/18/24 15:30 BMI result Body Mass Index 31.7 General: In somewhat acute distress, ill appearing and tired appearing Nutritional Appearance: well nourished and overweight Eyes: appearance normal, both eyes and all related structures; Alignment and Position: alignment normal and position normal Neck: No lymphadenopathy, no thyromegaly Resp: bilateral air entry equal, occasional added sounds present mostly in the lung bases, wheezes better Cardio: Regular rate, regular rhythm; Heart sounds: S1 normal heart sound present and S2 normal heart sound present GI: soft, nontender, no guarding, no hepatosplenomegaly : bladder normal to inspection, bladder normal to palpation, no renal angle tenderness Skin: no rashes or lesions noted and elasticity normal Neuro: Confusion present, moves all extremities Objective Data Labs 03/27/24 04:45 03/27/24 09:43 Labs: Laboratory Results - last 24 hr 03/26/24 03/26/24 03/27/24 17:35 23:50 04:07 WBC RBC Hgb Hct MCV MCH MCHC RDW Plt Count MPV Immature Gran % (Auto) Neut % (Auto) Lymph % (Auto) [place] % (Auto) Eos % (Auto) Baso % (Auto) Lymph # (Auto) [place] # (Auto) Eos # (Auto) Baso # (Auto) Abs Immat Gran (auto) Absolute Neuts (auto) Absolute Nucleated RBC Nucleated RBC % (auto) VBG pH VBG pCO2 VBG pO2 VBG HCO3 VBG O2 Saturation VBG Base Excess Sodium 145 Potassium 5.8 H D Chloride 109 H Carbon Dioxide 28 Anion Gap 14 BUN 22 H Creatinine 0.90 Estim Creat Clear Calc 105.9 Estimated GFR > 60 POC Glucose 128 H 190 H Random Glucose 168 H Calcium 8.6 Phosphorus 3.8 Magnesium 2.8 H Total Bilirubin 0.8 AST 64 H ALT 72 H Alkaline Phosphatase 95 Total Protein 7.2 Albumin 2.8 L 03/27/24 03/27/24 03/27/24 04:15 04:45 09:43 WBC 15.8 H RBC 4.34 L Hgb 12.7 L Hct 42.1 MCV 97.0 MCH 29.3 MCHC 30.2 L RDW 14.2 Plt Count 163 MPV 11.7 Immature Gran % (Auto) 1.5 H Neut % (Auto) 81.3 H Lymph % (Auto) 8.5 L [place] % (Auto) 5.5 Eos % (Auto) 2.8 Baso % (Auto) 0.4 Lymph # (Auto) 1.3 [place] # (Auto) 0.9 Eos # (Auto) 0.4 Baso # (Auto) 0.1 Abs Immat Gran (auto) 0.23 H Absolute Neuts (auto) 12.9 H Absolute Nucleated RBC 0.000 Nucleated RBC % (auto) 0.0 VBG pH 7.49 H VBG pCO2 42 VBG pO2 69 VBG HCO3 32 H VBG O2 Saturation 96.0 VBG Base Excess 8.4 Sodium 147 H Potassium 4.8 Chloride 107 Carbon Dioxide 34 H Anion Gap 11 L BUN 21 H Creatinine 0.95 Estim Creat Clear Calc 100.3 Estimated GFR > 60 POC Glucose Random Glucose 266 H Calcium 8.8 Phosphorus Magnesium Total Bilirubin AST ALT Alkaline Phosphatase Total Protein Albumin 03/27/24 11:38 WBC RBC Hgb Hct MCV MCH MCHC RDW Plt Count MPV Immature Gran % (Auto) Neut % (Auto) Lymph % (Auto) [place] % (Auto) Eos % (Auto) Baso % (Auto) Lymph # (Auto) [place] # (Auto) Eos # (Auto) Baso # (Auto) Abs Immat Gran (auto) Absolute Neuts (auto) Absolute Nucleated RBC Nucleated RBC % (auto) VBG pH VBG pCO2 VBG pO2 VBG HCO3 VBG O2 Saturation VBG Base Excess Sodium Potassium Chloride Carbon Dioxide Anion Gap BUN Creatinine Estim Creat Clear Calc Estimated GFR POC Glucose 262 H Random Glucose Calcium Phosphorus Magnesium Total Bilirubin AST ALT Alkaline Phosphatase Total Protein Albumin Microbiology Microbiology Results: Microbiology 03/24/24 14:50 Sputum - Suctioned Gram Stain - Final 03/24/24 14:50 Sputum - Suctioned Sputum Culture - Final Esthela dubliniensis 03/14/24 17:45 Blood - Venous Blood Culture - Final No growth after 5 days. 03/14/24 17:45 Blood - Venous Blood Culture - Final No growth after 5 days. Progress Note: A&P Assessment and plan (1) Non-ST elevation HI (NSTEMI): Status: Acute (2) Acute exacerbation of chronic obstructive pulmonary disease (COPD): Status: Acute (3) Respiratory failure with hypoxia and hypercapnia: Status: Acute (4) Pneumonia: Status: Acute (5) COPD (chronic obstructive pulmonary disease): Status: Acute (6) Acute respiratory failure with hypercapnia: Status: Acute (7) Pulmonary edema: Status: Acute Plan 63-year-old gentleman with underlying diabetes mellitus, TBI, seizure disorder, COPD admitted on 03/15/2024 with dyspnea. Patient initially noted to be in respiratory acidosis that improved with application of BiPAP. His respiratory viral panel was negative. CT angio chest showed evidence of pulmonary emboli, but some pulmonary edema. He was treated with diuretic with improvement in his blood gases and downgraded to telemetry victoria. Patient continued with intermittent CO2 retention and noncompliance with nocturnal BiPAP therapy resulting worsening CO2 retention requiring daytime BiPAP application. However, patient was not compliant with daytime BiPAP requiring intubation and ventilatory support. Neuro: Acute encephalopathy possibly due to significant psych history Tapered off Precedex drip this morning Close neurological status monitoring in the ICU every hour We will continue lithium and topiramate with thick and puree Psychiatry on board, advised p.rlluvia Toribio Cardiac: TTE showed normal EF Respiratory: Acute hypoxemic respiratory failure due to Extubated 2days ago, currently saturations okay on OxyMask but patient continuously pulling the OxyMask. However he remains off high-risk for intubation given noncompliance to BiPAP had underlying severe COPD. This has been explained to his sister Tran, who stated that he had similar episode 1.5 years ago where he was intubated multiple times due to noncompliance to BiPAP at [facility]. He has been stable without BiPAP since then. If the time comes where he needs repeated re-intubation due to noncompliance to the BiPAP she might consider making him DNI. She had an episode of desaturation to 30 and 40s, turning cyanosed following lunch. We will keep him NPO for now GI: Continue tube feeds Renal: Normal renal function, good urine output We will closely monitor I's and O's Avoid nephrotoxic medications Heme: Chronic anemia, closely monitor H&H, transfuse for hemoglobin less than 7 grams/deciliter Endocrine: Diabetes mellitus: Blood sugars under control On Lantus 15 units daily, sugars slightly higher this afternoon but patient will be NPO again Sliding scale insulin as needed Infectious disease: Pancultures negative Leukocytosis slightly better 15k, continue 8 aspiration pneumonia pending sputum culture Musculoskeletal: Decubitus ulcer prevention protocol Lines: Peripheral off Martins Prophylaxis: Lovenox, famotidine Quality Stroke Does the patient have a stroke diagnosis?: No VTE Prior VTE?: No VTE Risk Level:: Medical - moderate - high VTE Device Contraindication: Treatment Not Indicated VTE Drug Contraindication: N/A - Med Ordered
[2024-03-27 17:29] LABS: Glucose, Whole Blood 95 mg/dL (60-115)
[2024-03-27] MEDS: HaloperidoL 1 MG TABLET PO (17:55)
[2024-03-27] MEDS: diphenhydrAMINE HCL 50 MG/ML VIAL 25 MG IVPUSH (18:14)
--- NOTE | 2024-03-27 19:18 | PC.NURSE ---
Patient alert, oriented to self only, confused, forgetful, needing frequent redirections, constantly yelling out, demanding. Patient on 4L NC sat's above 90%, external catheter replaced after patient removed it, patient also pulled one of the IVs. NPO order placed for patient after choking incident at lunch time. Patient was on ground, nectar thick but still was not able to safely swallow, choking/coughing. Abdomen large, round no BM this shift. Patient continues to cough but resistive to suction. Complaint with medication, takes well whole in pudding. Dry/peeling skin to bilat arms and legs, patient c/o itching, PRN Benadryl administered.
[2024-03-27] MEDS: Tamsulosin HCL 0.4 MG CAPSULE PO (20:06)
[2024-03-27] MEDS: bisacodyL 5 MG TABLET.DR 10 MG PO (20:08)
[2024-03-27 21:30] LABS: Anion Gap 12 (12-20); Blood Urea Nitrogen 16 mg/dL (9-16); Calcium 8.9 mg/dL (8.4-10.2); Carbon Dioxide 34 mmol/L (22-29); Chloride 109 mmol/L (96-108); Creatinine Clr Calc Pharmacy 122.1; Estimated Glomerular Filt Rate > 60; Glucose Random 99 mg/dL (60-115); Potassium 3.7 mmol/L (3.3-5.1); Sodium 151 mmol/L (135-145)
[2024-03-27 22:22] LABS: Glucose, Whole Blood 105 mg/dL (60-115)
[2024-03-28] VITALS (22 sets, daily range): BP systolic 130–165; BP diastolic 60–84; PULSE 65–92; RESP 12–30; TEMP 36.4–36.8; O2SAT 93–99
[2024-03-28] MEDS: HaloperidoL 1 MG TABLET PO ×2 (00:51→13:00)
[2024-03-28] MEDS: Piperacillin Sodium/Tazobactam 4.5 GM in 0.9 % Sodium Chloride 100 ML IV ×4 (02:31→19:53)
[2024-03-28 04:23] LABS: VBG Base Excess 9.8 mmol/L; VBG HCO3 36 mmol/L (22-26); VBG pCO2 57 mmHg; VBG pH 7.41 (7.32-7.43); VBG pO2 49 mmHg
[2024-03-28 04:36] LABS: Venous Blood Gas Refer to POC result
[2024-03-28 04:43] LABS: MANUAL DIFF FLAG NO
[2024-03-28 04:50] LABS: Basophils Percent Auto 0.3 % (0-2); Eosinophils Absolute Auto 0.4 X10*3/uL (0.0-0.4); Eosinophils Percent Auto 3.6 % (0-4); Hematocrit 46.5 % (42.0-52.0); Hemoglobin 13.7 g/dl (14.0-18.0); Imm Gran Abs Auto 0.04 X10*3/uL (0.00-0.03); Imm Gran Pct Auto 0.4 % (0.0-0.4); Lymphocytes Percent Auto 9.1 % (20-40); Mean Corpuscular HGB Conc 29.5 g/dl (31.0-36.0); Mean Corpuscular Hemoglobin 29.3 pg (27.0-33.0); Mean Corpuscular Volume 99.6 fL (80.0-98.0); Mean Platelet Volume 11.1 fL (9.4-12.4); Monocytes Absolute Auto 0.6 X10*3/uL (0.1-1.2); Monocytes Percent Auto 5.6 % (2-11); Neutrophils Absolute Auto 8.9 x10*3/uL (2.0-8.3); Platelet Count 192 X10*3/uL (160-400); Red Blood Count 4.67 X10*6/uL (4.60-5.80); Red Cell Distribution Width 13.9 % (11.0-16.0)
[2024-03-28 04:55] LABS: Glucose, Whole Blood 146 mg/dL (60-115)
[2024-03-28 05:10] LABS: Alanine Aminotransferase 70 U/L (0-40); Albumin Level 3.2 g/dL (3.5-5.0); Alkaline Phosphatase 97 U/L (39-117); Anion Gap 12 (12-20); Aspartate Amino Transferase 38 U/L (5-37); Bilirubin Total 0.9 mg/dL (0.0-1.0); Blood Urea Nitrogen 15 mg/dL (9-16); Calcium 9.2 mg/dL (8.4-10.2); Carbon Dioxide 31 mmol/L (22-29); Chloride 109 mmol/L (96-108); Creatinine Clr Calc Pharmacy 110.8; Estimated Glomerular Filt Rate > 60; Glucose Random 145 mg/dL (60-115); Magnesium 2.5 mg/dL (1.6-2.6); Phosphorus 2.9 mg/dL (2.7-4.5); Sodium 148 mmol/L (135-145); Total Protein 7.1 g/dL (6.5-8.0)
[2024-03-28] MEDS: 0.9 % Sodium Chloride Flush 3 ML SYRINGE IVFLUSH (08:25)
[2024-03-28] MEDS: Famotidine/PF 20 MG/2 ML VIAL IVPUSH (08:31)
[2024-03-28] MEDS: polyethylene glycoL 3350 17 GM POWD.PACK PO (08:34)
[2024-03-28] MEDS: Lithium Carbonate 300 MG CAPSULE PO ×2 (08:41→19:54)
[2024-03-28] MEDS: Topiramate 25 MG TABLET 50 MG PO ×2 (08:41→19:54)
[2024-03-28] MEDS: Chlorhexidine Gluc Oral Rinse 15 ML MOUTHWASH BUCCAL ×2 (08:42→15:55)
[2024-03-28] MEDS: HaloperidoL 0.5 MG TABLET PO ×3 (08:42→19:53)
[2024-03-28] MEDS: Aspirin Enteric Coated 81 MG TABLET.DR PO (08:42)
[2024-03-28] MEDS: Enoxaparin Sodium 40 MG/0.4 ML SYRINGE SUBCUT (08:50)
[2024-03-28] MEDS: Lithium Carbonate 300 MG TABLET 150 MG PO ×2 (08:50→19:53)
[2024-03-28] MEDS: Insulin Glargine,Hum.rec.anlog 100 UNIT/ML 10 ML VIAL 15 UNIT SUBCUT (09:59)
[2024-03-28 10:05] LABS: Glucose, Whole Blood 148 mg/dL (60-115)
--- NOTE | 2024-03-28 10:46 | MHC.CLN ---
F/U NPO STARTING 03/27. ASPIRATED WITH LUNCH 03/27. CONTINUE TO FOLLOW FOR PLAN OF CARE AND NEED FOR NUTRITION SUPPORT.
[2024-03-28 11:33] LABS: Glucose, Whole Blood 144 mg/dL (60-115)
[2024-03-28] MEDS: diphenhydrAMINE HCL 50 MG/ML VIAL 25 MG IVPUSH (11:36)
--- NOTE | 2024-03-28 14:32 | PM.CCPN ---
Subjective Subjective Date of Service: 03/28/24 Critical Care Time (minutes): 35 Comment: Doing okay except for couple of episodes of agitation Saturations stable on nasal cannula oxygen, hemodynamically stable Physical Exam Vital Signs: Vital Signs: Last Vital Signs Temp 98.3 F 03/28/24 06:55 Pulse 65 03/28/24 14:00 Resp 12 03/28/24 14:00 BP 157/76 H 03/28/24 13:00 Pulse Ox 95 03/28/24 14:00 O2 Del Method Nasal Cannula 03/28/24 14:00 O2 Flow Rate 4 03/28/24 14:00 FiO2 30 03/27/24 21:58 Oxygen Flow Rate 11 03/18/24 15:30 BMI result Body Mass Index 31.7 General: male ill appearing and tired appearing, not in acute distress Nutritional Appearance: well nourished and overweight Eyes: appearance normal, both eyes and all related structures; Alignment and Position: alignment normal and position normal Neck: No lymphadenopathy, no thyromegaly Resp: bilateral air entry equal, occasional added sounds present and also occasional wheezes Cardio: Regular rate, regular rhythm; Heart sounds: S1 normal heart sound present and S2 normal heart sound present GI: soft, nontender, no guarding, no hepatosplenomegaly : bladder normal to inspection, bladder normal to palpation, no renal angle tenderness Skin: no rashes or lesions noted and elasticity normal Neuro: Follows commands, no focal deficits, moves all extremities Objective Data Labs 03/28/24 04:09 03/28/24 04:32 Labs: Laboratory Results - last 24 hr 03/27/24 03/27/24 03/27/24 17:24 20:43 22:17 WBC RBC Hgb Hct MCV MCH MCHC RDW Plt Count MPV Immature Gran % (Auto) Neut % (Auto) Lymph % (Auto) [place] % (Auto) Eos % (Auto) Baso % (Auto) Lymph # (Auto) [place] # (Auto) Eos # (Auto) Baso # (Auto) Abs Immat Gran (auto) Absolute Neuts (auto) Absolute Nucleated RBC Nucleated RBC % (auto) VBG pH VBG pCO2 VBG pO2 VBG HCO3 VBG O2 Saturation VBG Base Excess Sodium 151 H Potassium 3.7 D Chloride 109 H Carbon Dioxide 34 H Anion Gap 12 BUN 16 Creatinine 0.78 Estim Creat Clear Calc 122.1 Estimated GFR > 60 POC Glucose 95 105 Random Glucose 99 Calcium 8.9 Phosphorus Magnesium Total Bilirubin AST ALT Alkaline Phosphatase Total Protein Albumin 03/28/24 03/28/24 03/28/24 04:09 04:20 04:32 WBC 11.0 H RBC 4.67 Hgb 13.7 L Hct 46.5 MCV 99.6 H MCH 29.3 MCHC 29.5 L RDW 13.9 Plt Count 192 MPV 11.1 Immature Gran % (Auto) 0.4 Neut % (Auto) 81.0 H Lymph % (Auto) 9.1 L [place] % (Auto) 5.6 Eos % (Auto) 3.6 Baso % (Auto) 0.3 Lymph # (Auto) 1.0 L [place] # (Auto) 0.6 Eos # (Auto) 0.4 Baso # (Auto) 0.0 Abs Immat Gran (auto) 0.04 H Absolute Neuts (auto) 8.9 H Absolute Nucleated RBC 0.000 Nucleated RBC % (auto) 0.0 VBG pH 7.41 VBG pCO2 57 VBG pO2 49 VBG HCO3 36 H VBG O2 Saturation 80.0 VBG Base Excess 9.8 Sodium 148 H Potassium 4.0 Chloride 109 H Carbon Dioxide 31 H Anion Gap 12 BUN 15 Creatinine 0.86 Estim Creat Clear Calc 110.8 Estimated GFR > 60 POC Glucose Random Glucose 145 H Calcium 9.2 Phosphorus 2.9 Magnesium 2.5 Total Bilirubin 0.9 AST 38 H ALT 70 H Alkaline Phosphatase 97 Total Protein 7.1 Albumin 3.2 L 03/28/24 03/28/24 03/28/24 04:49 09:58 11:25 WBC RBC Hgb Hct MCV MCH MCHC RDW Plt Count MPV Immature Gran % (Auto) Neut % (Auto) Lymph % (Auto) [place] % (Auto) Eos % (Auto) Baso % (Auto) Lymph # (Auto) [place] # (Auto) Eos # (Auto) Baso # (Auto) Abs Immat Gran (auto) Absolute Neuts (auto) Absolute Nucleated RBC Nucleated RBC % (auto) VBG pH VBG pCO2 VBG pO2 VBG HCO3 VBG O2 Saturation VBG Base Excess Sodium Potassium Chloride Carbon Dioxide Anion Gap BUN Creatinine Estim Creat Clear Calc Estimated GFR POC Glucose 146 H 148 H 144 H Random Glucose Calcium Phosphorus Magnesium Total Bilirubin AST ALT Alkaline Phosphatase Total Protein Albumin Microbiology Microbiology Results: Microbiology 03/24/24 14:50 Sputum - Suctioned Gram Stain - Final 03/24/24 14:50 Sputum - Suctioned Sputum Culture - Final Esthela dubliniensis 03/14/24 17:45 Blood - Venous Blood Culture - Final No growth after 5 days. 03/14/24 17:45 Blood - Venous Blood Culture - Final No growth after 5 days. Progress Note: A&P Assessment and plan (1) Pulmonary edema: Status: Acute (2) Acute respiratory failure with hypercapnia: Status: Acute (3) COPD (chronic obstructive pulmonary disease): Status: Acute (4) Pneumonia: Status: Acute (5) Respiratory failure with hypoxia and hypercapnia: Status: Acute (6) Acute exacerbation of chronic obstructive pulmonary disease (COPD): Status: Acute Plan 63-year-old gentleman with underlying diabetes mellitus, TBI, seizure disorder, COPD admitted on 03/15/2024 with dyspnea. Patient initially noted to be in respiratory acidosis that improved with application of BiPAP. His respiratory viral panel was negative. CT angio chest showed evidence of pulmonary emboli, but some pulmonary edema. He was treated with diuretic with improvement in his blood gases and downgraded to telemetry victoria. Patient continued with intermittent CO2 retention and noncompliance with nocturnal BiPAP therapy resulting worsening CO2 retention requiring daytime BiPAP application. However, patient was not compliant with daytime BiPAP requiring intubation and ventilatory support. Neuro: Acute encephalopathy possibly due to significant psych history Off Precedex since yesterday morning Close neurological status monitoring in the ICU every hour We will continue lithium and topiramate with stan and yaakove Psychiatry on board, advised p.r.n. Haldol along with scheduled Haldol Cardiac: TTE showed normal EF Respiratory: Acute hypoxemic respiratory failure due to aspiration pneumonia on top of underlying COPD Extubated 3 days ago, currently saturations okay on OxyMask but patient continuously pulling the OxyMas, agitated, trying to get out of the bed and pulling oxygen leading to hypoxia. However he remains off high-risk for reintubation given noncompliance to BiPAP as he has underlying severe COPD. This has been explained to his sister Tran, who stated that he had similar episode 1.5 years ago where he was intubated multiple times due to noncompliance to BiPAP at [facility]. He has been stable without BiPAP since then. If the time comes where he needs repeated re-intubation due to noncompliance to the BiPAP she might consider making him DNI. NPO currently as he had episodes of desaturation during lunch yesterday GI: Continue tube feeds Renal: Normal renal function, good urine output We will closely monitor I's and O's Avoid nephrotoxic medications Heme: Chronic anemia, closely monitor H&H, transfuse for hemoglobin less than 7 grams/deciliter Endocrine: Diabetes mellitus: Blood sugars under control On Lantus 15 units daily Sliding scale insulin as needed Infectious disease: Pancultures negative Leukocytosis slightly better 11k, continue 8 aspiration pneumonia pending sputum culture Musculoskeletal: Decubitus ulcer prevention protocol Lines: Peripheral off [place] Prophylaxis: Lovenox, famotidine Quality Stroke Does the patient have a stroke diagnosis?: No VTE Prior VTE?: No VTE Risk Level:: Medical - moderate - high VTE Device Contraindication: Treatment Not Indicated VTE Drug Contraindication: N/A - Med Ordered
[2024-03-28 17:33] LABS: Glucose, Whole Blood 89 mg/dL (60-115)
--- NOTE | 2024-03-28 18:45 | PC.NURSE ---
Pt weaned down to 3L n/c today with only desaturations when pt removed his O2 entirely. No s/s resp distress today. He tolerated thickened water controlled by RN with strict aspiration precautions approved by verbal order of Dr. Comer. Pt's primary complaints today are thirst and itching. IV benadryl with some + effect. Dr. Comer aware and Ammonium lactate lotion ordered and awaiting delivery by pharmacy. Pt oriented to self, 2nd floor of hospital but not which hospital. He knows it's March but not the day or year. He lacks situational and safety awareness displayed by pt having multiple attempts to get OOB unassisted, pulling off his O2 and tubes and lines. Camera and safety precautions maintained.
[2024-03-28] MEDS: bisacodyL 5 MG TABLET.DR 10 MG PO (19:54)
[2024-03-28] MEDS: Tamsulosin HCL 0.4 MG CAPSULE PO (19:55)
[2024-03-28 20:28] LABS: Glucose, Whole Blood 118 mg/dL (60-115)
[2024-03-29] VITALS (28 sets, daily range): BP systolic 116–167; BP diastolic 59–104; PULSE 65–85; RESP 15–28; TEMP 36.3–37.1; O2SAT 89–98
[2024-03-29 00:18] LABS: Glucose, Whole Blood 115 mg/dL (60-115)
[2024-03-29] MEDS: HaloperidoL 1 MG TABLET PO (01:03)
[2024-03-29] MEDS: diphenhydrAMINE HCL 50 MG/ML VIAL 25 MG IVPUSH (01:05)
[2024-03-29] MEDS: Piperacillin Sodium/Tazobactam 4.5 GM in 0.9 % Sodium Chloride 100 ML IV ×3 (03:00→14:39)
[2024-03-29 04:24] LABS: VBG Base Excess 8.6 mmol/L; VBG HCO3 35 mmol/L (22-26); VBG pCO2 54 mmHg; VBG pH 7.41 (7.32-7.43); VBG pO2 48 mmHg
[2024-03-29 04:29] LABS: Venous Blood Gas Refer to POC result
[2024-03-29 04:36] LABS: MANUAL DIFF FLAG NO
[2024-03-29 04:38] LABS: Basophils Absolute Auto 0.1 X10*3/uL (0.0-0.2); Basophils Percent Auto 0.6 % (0-2); Eosinophils Absolute Auto 0.4 X10*3/uL (0.0-0.4); Eosinophils Percent Auto 4.1 % (0-4); Hematocrit 42.9 % (42.0-52.0); Hemoglobin 12.7 g/dl (14.0-18.0); Imm Gran Abs Auto 0.05 X10*3/uL (0.00-0.03); Imm Gran Pct Auto 0.5 % (0.0-0.4); Lymphocytes Absolute Auto 1.2 X10*3/uL (1.2-4.9); Lymphocytes Percent Auto 11.2 % (20-40); Mean Corpuscular HGB Conc 29.6 g/dl (31.0-36.0); Mean Corpuscular Hemoglobin 29.4 pg (27.0-33.0); Mean Corpuscular Volume 99.3 fL (80.0-98.0); Mean Platelet Volume 10.8 fL (9.4-12.4); Monocytes Absolute Auto 0.5 X10*3/uL (0.1-1.2); Monocytes Percent Auto 5.1 % (2-11); Neutrophils Absolute Auto 8.3 x10*3/uL (2.0-8.3); Neutrophils Percent Auto 78.5 % (45-73); Platelet Count 206 X10*3/uL (160-400); Red Blood Count 4.32 X10*6/uL (4.60-5.80); White Blood Count 10.6 X10*3/uL (4.8-10.8)
[2024-03-29 04:57] LABS: Alanine Aminotransferase 52 U/L (0-40); Albumin Level 3.3 g/dL (3.5-5.0); Alkaline Phosphatase 89 U/L (39-117); Anion Gap 15 (12-20); Aspartate Amino Transferase 27 U/L (5-37); Bilirubin Total 0.9 mg/dL (0.0-1.0); Blood Urea Nitrogen 12 mg/dL (9-16); Calcium 8.9 mg/dL (8.4-10.2); Carbon Dioxide 32 mmol/L (22-29); Chloride 107 mmol/L (96-108); Creatinine Clr Calc Pharmacy 101.3; Estimated Glomerular Filt Rate > 60; Glucose Random 132 mg/dL (60-115); Magnesium 2.5 mg/dL (1.6-2.6); Phosphorus 3.6 mg/dL (2.7-4.5); Potassium 3.7 mmol/L (3.3-5.1); Sodium 150 mmol/L (135-145); Total Protein 7.4 g/dL (6.5-8.0)
[2024-03-29 06:41] LABS: Glucose, Whole Blood 199 mg/dL (60-115)
[2024-03-29] MEDS: Insulin Lispro 100 UNIT/ML 3 ML VIAL SUBCUT (06:41)
[2024-03-29] MEDS: polyethylene glycoL 3350 17 GM POWD.PACK PO (08:08)
[2024-03-29] MEDS: Chlorhexidine Gluc Oral Rinse 15 ML MOUTHWASH BUCCAL ×3 (08:09→20:24)
[2024-03-29] MEDS: 0.9 % Sodium Chloride Flush 3 ML SYRINGE IVFLUSH (08:10)
[2024-03-29] MEDS: Insulin Glargine,Hum.rec.anlog 100 UNIT/ML 10 ML VIAL 15 UNIT SUBCUT (08:11)
[2024-03-29] MEDS: Famotidine/PF 20 MG/2 ML VIAL IVPUSH (08:17)
[2024-03-29] MEDS: Sennosides/Docusate Sodium TABLET 1 TAB PO (08:22)
[2024-03-29] MEDS: Aspirin Enteric Coated 81 MG TABLET.DR PO (08:22)
[2024-03-29] MEDS: HaloperidoL 0.5 MG TABLET PO (08:22)
[2024-03-29] MEDS: Lithium Carbonate 300 MG CAPSULE PO ×2 (08:22→20:24)
[2024-03-29] MEDS: Lithium Carbonate 300 MG TABLET 150 MG PO ×2 (08:23→20:23)
[2024-03-29] MEDS: Topiramate 25 MG TABLET 50 MG PO ×2 (08:24→20:23)
[2024-03-29] MEDS: Enoxaparin Sodium 40 MG/0.4 ML SYRINGE SUBCUT (08:34)
[2024-03-29] MEDS: Ammonium Lactate 12 % Cream 140 GM TUBE 1 APPL TOPICAL ×2 (08:34→23:51)
--- NOTE | 2024-03-29 09:50 | PM.CCPN ---
Subjective Subjective Date of Service: 03/29/24 Critical Care Time (minutes): 60 Physical Exam Vital Signs: Vital Signs: Last Vital Signs Temp 97.8 F 03/29/24 08:00 Pulse 83 03/29/24 08:00 Resp 19 03/29/24 08:00 BP 148/81 H 03/29/24 08:00 Pulse Ox 89 L 03/29/24 08:00 O2 Del Method Nasal Cannula 03/29/24 08:00 O2 Flow Rate 2 03/29/24 08:00 FiO2 30 03/27/24 21:58 Oxygen Flow Rate 11 03/18/24 15:30 BMI result Body Mass Index 31.7 Const: General: cooperative, healthy appearing, comfortable, no acute distress, well developed, alert, awake and Physically active Orientation/consciousness: oriented to person HEENT: Head: Yes normal to inspection, Yes normocephalic and Yes atraumatic Eyes: General: appearance normal, both eyes and all related structures Neck: Neck: Yes normal visual inspection, Yes full ROM, Yes no meningeal signs, Yes trachea midline and Yes supple Chest: Chest palpation & inspection: normal inspection of the chest Resp: Other: diminished breath sounds throughout; no appreciable overt rales, rhonchi, wheezing Cardio: Rate: regular rate Rhythm: regular rhythm GI: Inspection: Yes normal to inspection, No Abdominal wall edema and No distended Palpation (GI): Soft to palpation, not firm, nontender, no guarding and not rigid Skin: General skin exam: no rashes or lesions noted Neuro: General: oriented to person, tone normal, moves all extremities, no meningeal signs and no focal motor deficits Extrem: General: Yes normal to inspection, Yes full ROM, Yes capillary refill normal and Yes no clubbing, cyanosis or edema Psych: Appearance: grossly normal Objective Data Labs 03/29/24 04:12 03/29/24 04:12 Labs: Laboratory Results - last 24 hr 03/28/24 03/28/24 03/28/24 09:58 11:25 17:27 WBC RBC Hgb Hct MCV MCH MCHC RDW Plt Count MPV Immature Gran % (Auto) Neut % (Auto) Lymph % (Auto) [place] % (Auto) Eos % (Auto) Baso % (Auto) Lymph # (Auto) [place] # (Auto) Eos # (Auto) Baso # (Auto) Abs Immat Gran (auto) Absolute Neuts (auto) Absolute Nucleated RBC Nucleated RBC % (auto) VBG pH VBG pCO2 VBG pO2 VBG HCO3 VBG O2 Saturation VBG Base Excess Sodium Potassium Chloride Carbon Dioxide Anion Gap BUN Creatinine Estim Creat Clear Calc Estimated GFR POC Glucose 148 H 144 H 89 Random Glucose Calcium Phosphorus Magnesium Total Bilirubin AST ALT Alkaline Phosphatase Total Protein Albumin 03/28/24 03/29/24 03/29/24 20:25 00:15 04:12 WBC 10.6 RBC 4.32 L Hgb 12.7 L Hct 42.9 MCV 99.3 H MCH 29.4 MCHC 29.6 L RDW 14.0 Plt Count 206 MPV 10.8 Immature Gran % (Auto) 0.5 H Neut % (Auto) 78.5 H Lymph % (Auto) 11.2 L [place] % (Auto) 5.1 Eos % (Auto) 4.1 H Baso % (Auto) 0.6 Lymph # (Auto) 1.2 [place] # (Auto) 0.5 Eos # (Auto) 0.4 Baso # (Auto) 0.1 Abs Immat Gran (auto) 0.05 H Absolute Neuts (auto) 8.3 Absolute Nucleated RBC 0.000 Nucleated RBC % (auto) 0.0 VBG pH VBG pCO2 VBG pO2 VBG HCO3 VBG O2 Saturation VBG Base Excess Sodium 150 H Potassium 3.7 Chloride 107 Carbon Dioxide 32 H Anion Gap 15 BUN 12 Creatinine 0.94 Estim Creat Clear Calc 101.3 Estimated GFR > 60 POC Glucose 118 H 115 Random Glucose 132 H Calcium 8.9 Phosphorus 3.6 Magnesium 2.5 Total Bilirubin 0.9 AST 27 ALT 52 H Alkaline Phosphatase 89 Total Protein 7.4 Albumin 3.3 L 03/29/24 03/29/24 04:21 06:37 WBC RBC Hgb Hct MCV MCH MCHC RDW Plt Count MPV Immature Gran % (Auto) Neut % (Auto) Lymph % (Auto) [place] % (Auto) Eos % (Auto) Baso % (Auto) Lymph # (Auto) [place] # (Auto) Eos # (Auto) Baso # (Auto) Abs Immat Gran (auto) Absolute Neuts (auto) Absolute Nucleated RBC Nucleated RBC % (auto) VBG pH 7.41 VBG pCO2 54 VBG pO2 48 VBG HCO3 35 H VBG O2 Saturation 77.0 VBG Base Excess 8.6 Sodium Potassium Chloride Carbon Dioxide Anion Gap BUN Creatinine Estim Creat Clear Calc Estimated GFR POC Glucose 199 H Random Glucose Calcium Phosphorus Magnesium Total Bilirubin AST ALT Alkaline Phosphatase Total Protein Albumin Microbiology Microbiology Results: Microbiology 03/24/24 14:50 Sputum - Suctioned Gram Stain - Final 03/24/24 14:50 Sputum - Suctioned Sputum Culture - Final Esthela dubliniensis 03/14/24 17:45 Blood - Venous Blood Culture - Final No growth after 5 days. 03/14/24 17:45 Blood - Venous Blood Culture - Final No growth after 5 days. Progress Note: A&P Assessment and plan (1) Respiratory failure with hypoxia and hypercapnia: Status: Acute (2) Aspiration into airway: Status: Acute Plan Patient is a 63 Y M w/ diabetes mellitus, TBI c/b epilepsy, COPD presenting initially to emergency department on 03/15 w/ dyspea, found to be in hypercarbic respiratory failure, necessitating BiPAP and upgraded to ICU, subsequently downgraded to floor, re-developed hypercarbic respiratory failure and re-upgraded to ICU, intubated on 03/19, extubated on 03/25, maintained in ICU d/t c/f persistent recurrent aspiration N: alert, though oriented to person only CV: no acute issues R: acute hypoxic respiratory failure, likely multi-factorial, d/t COPD, recurrent aspiration; wean oxygen as tolerated GI: NPO; speech/swallow evaluation : no acute issues; to closely monitor renal indices, electrolytes H: no acute issues ID: no overt stigmata of infection; to closely monitor E: diabetes mellitus; insulin regimen S: ongoing [id number] discussions, specifically re: intubation Quality Stroke Does the patient have a stroke diagnosis?: No VTE Prior VTE?: No VTE Risk Level:: Medical - moderate - high VTE Device Contraindication: N/A - Device Ordered VTE Drug Contraindication: N/A - Med Ordered
[2024-03-29] MEDS: acetaZOLAMIDE sodium 500 MG VIAL 250 MG IVPUSH (11:01)
[2024-03-29] MEDS: Albuterol/Iprat 2.5/0.5MG 3 ML AMPUL.NEB INHALE ×2 (13:32→19:45)
[2024-03-29 13:35] LABS: Glucose, Whole Blood 133 mg/dL (60-115)
--- NOTE | 2024-03-29 13:46 | MHC.CLN ---
F/U CONTINUES NPO SINCE 03/27. HX ASPIRATION. FIRST AID INSTRUCTOR CONSULT PENDING. CONTINUE TO FOLLOW FOR PLAN OF CARE AND NEED FOR NUTRITION SUPPORT.
--- NOTE | 2024-03-29 14:35 | W.MHC.ACPN ---
Advanced Care Planning Note Advanced Care Planning Note Discussed with: family member(s) Time spent (in minutes): 30 Narrative: of note, Mr. Gilbert is alert, oriented only to person and otherwise unable to engage in higher-level conversation; I called and introduced myself to Mr. Gilbert's sister, Tran; I offered updates and clarifications regarding Mr. Gilbert's hospital course; we also discussed Mr. Gilbert's code status; Tran reports that she and her have had conversations with Mr. Gilbert regarding his code status, which seemed to be DNR/DNI; however, when Mr. Gilbert was relocated to [facility], Tran was told Mr. Gilbert had a conversation with [facility]'s high school social studies teacher and physician regarding goals of care, and he had changed his code status to full code; given this change, Tran hopes that Mr. Gilbert will be less altered in the near future and participate in his own goals of care converstation again; Tran does wonder how many times a person can tolerate intubation, especially given Mr. Gilbert does not tolerate even non-invasive ventilation; Tran did make it clear that tracheostomy would never be within Mr. Gilbert's philosophy of care Problems Discussed (1) Respiratory failure with hypoxia and hypercapnia: (2) Aspiration into airway:
[2024-03-29] MEDS: diphenhydrAMINE HCL 25 MG CAPSULE PO ×2 (14:39→23:48)
--- NOTE | 2024-03-29 17:11 | MHC.SL.SWA ---
Speech Pathologist Impression: Pharyngeal dysphagia exaccerbation Risk of Aspiration Due to: Neurological Condition History of Pneumonia Hx of Recent Extubation Reduced Cognition Dysphasia Diet Status: Recc NPO except meds crushed in puree. DUDE RANCH MANAGER to re-assess tomorrow, anticipate improved pharyngeal closure within a day or two. Liquid Consistency and Strategies for Safe Swallow: Liquid Intake Recommendation: [place] Thick Liquid Intake Strategies: Small Sips Solid Food Consistency: Dietary Recommendations: NPO Additional Modifications to Solid Foods: Oral Medication Intake: Crushed with Puree Please contact the pharmacy regarding appropriate crushable or liquid drug formulations that are available whenever modified delivery is recommended. Compensatory Strategies and Precautions to be Taken for Safe Swallow: Sitting Upright (90 deg) Liquids from Cup Liquids from Spoon Small Bites and Sips Alternate Liquids/Solids Supervision While Eating and Drinking for Safe Swallow: Total Supervision (1:1) Foods to Avoid: Swallowing Recommended Treatments: Compens. Strategy Educat. Recommendation for Speech: Inpatient Speech Therapy Comment:Patient had episode of desaturations down to 30-40% SpO2 following an aspiration event after having lunch 03/27, seen 03/29 for re-evaluation. Recc NPO except meds crushed in puree, DUDE RANCH MANAGER to evaluate tomorrow. Frequency/Duration: M-F while inpatient. Date Range for Service Req: Timeline to reassess: Survey Research Analyst Clinican/Clinical Fellow: No Supervisory Statement: I have reviewed and agree with the student/clinical fellow's documentation: N/A Speech Language Pathologist: Marybeth Phan M.S., [facility]-DUDE RANCH MANAGER
[2024-03-29 18:01] LABS: Glucose, Whole Blood 132 mg/dL (60-115)
[2024-03-29] MEDS: Tamsulosin HCL 0.4 MG CAPSULE PO (20:23)
[2024-03-30] VITALS (15 sets, daily range): BP systolic 107–169; BP diastolic 39–98; PULSE 70–93; RESP 15–27; TEMP 36.2–36.8; O2SAT 90–96
[2024-03-30 00:06] LABS: Glucose, Whole Blood 127 mg/dL (60-115)
[2024-03-30] MEDS: Piperacillin Sodium/Tazobactam 4.5 GM in 0.9 % Sodium Chloride 100 ML IV ×4 (00:19→17:43)
[2024-03-30] MEDS: 0.9 % Sodium Chloride Flush 3 ML SYRINGE IVFLUSH ×2 (00:20→09:00)
[2024-03-30] MEDS: LORazepam 2 MG/ML VIAL 0.5 MG IVPUSH (01:32)
[2024-03-30 05:32] LABS: VBG Base Excess 8.1 mmol/L; VBG HCO3 35 mmol/L (22-26); VBG pCO2 57 mmHg; VBG pH 7.39 (7.32-7.43); VBG pO2 38 mmHg
[2024-03-30 05:45] LABS: Glucose, Whole Blood 136 mg/dL (60-115)
[2024-03-30 05:56] LABS: MANUAL DIFF FLAG NO
[2024-03-30 06:02] LABS: Basophils Absolute Auto 0.1 X10*3/uL (0.0-0.2); Basophils Percent Auto 0.4 % (0-2); Eosinophils Absolute Auto 0.5 X10*3/uL (0.0-0.4); Eosinophils Percent Auto 4.3 % (0-4); Hematocrit 45.9 % (42.0-52.0); Hemoglobin 13.1 g/dl (14.0-18.0); Imm Gran Abs Auto 0.04 X10*3/uL (0.00-0.03); Imm Gran Pct Auto 0.3 % (0.0-0.4); Lymphocytes Absolute Auto 1.5 X10*3/uL (1.2-4.9); Lymphocytes Percent Auto 12.6 % (20-40); Mean Corpuscular HGB Conc 28.5 g/dl (31.0-36.0); Mean Corpuscular Hemoglobin 28.9 pg (27.0-33.0); Mean Corpuscular Volume 101.3 fL (80.0-98.0); Mean Platelet Volume 10.9 fL (9.4-12.4); Monocytes Absolute Auto 0.5 X10*3/uL (0.1-1.2); Monocytes Percent Auto 4.3 % (2-11); Neutrophils Absolute Auto 9.1 x10*3/uL (2.0-8.3); Neutrophils Percent Auto 78.1 % (45-73); Platelet Count 237 X10*3/uL (160-400); Red Blood Count 4.53 X10*6/uL (4.60-5.80); White Blood Count 11.7 X10*3/uL (4.8-10.8)
[2024-03-30 06:18] LABS: Anion Gap 14 (12-20); Blood Urea Nitrogen 14 mg/dL (9-16); Calcium 8.9 mg/dL (8.4-10.2); Carbon Dioxide 27 mmol/L (22-29); Chloride 112 mmol/L (96-108); Creatinine Clr Calc Pharmacy 99.2; Estimated Glomerular Filt Rate > 60; Glucose Random 130 mg/dL (60-115); Magnesium 2.7 mg/dL (1.6-2.6); Phosphorus 3.6 mg/dL (2.7-4.5); Potassium 3.8 mmol/L (3.3-5.1); Sodium 149 mmol/L (135-145)
[2024-03-30 06:29] LABS: Venous Blood Gas Refer to POC result
--- NOTE | 2024-03-30 07:17 | PC.NURSE ---
Home School Coordinator assumed care of this patient at 23:00. Patient seen in ICU. Pt is A&Ox1 to self only. Impulsive and confused/disoriented. The pt did not have IV access on assuming care (pt had pulled out his IV, per handoff report). An ultrasound IV was placed in the LUE cephalic and IV zosyn was administered and rescheduled appropriately as discussed with DISPENSER OPERATOR. The pt was on bipap 10/5/30% on assuming care, frequently found to be pulling off the bipap as evidenced by an alarming bipap mask and in-room VMT camera alarming, patient found with mask off in his hand multiple times. Of note, this pt has a hx of TBI, copd, and poor bipap tolerance per chart review. The Bipap mask was frequently replaced and education and reassurance attempts provided. At 01:10 the pt pulled off the bipap again and became agitated, pt attempted to hit staff when trying to replace it. Covering DISPENSER OPERATOR Marylu Garcia was made aware and the pt was placed on an oxymask and given a 1x IVP ativan with some effect for a brief period of time. Pt tolerated the oxymask better than the bipap though continued to require frequent redirecting as he remained impulsive. Spo2 was maintained per co2 retainer oxygen protocol per order. Breathing appeared even and unlabored without distress during auto service writer?s care. Bed alarm on and safety measures in place. Plan of care continues. Please see shift assessments, tasks in worklist, and MAR for full details. Handoff report given to oncoming RN.
--- NOTE | 2024-03-30 07:42 | HO.PM.IMPN ---
Subjective Subjective Date of Service: 03/31/24 Interval History: multiple issues -copd,asp pneumonitis Review of Systems sob dumont seems more comfortable seems somewhat anxious Physical Exam Vital Signs: Vital Signs: Last Vital Signs Temp 98.3 F 03/30/24 04:00 Pulse 86 03/30/24 07:00 Resp 27 H 03/30/24 07:00 BP 143/68 H 03/30/24 07:00 Pulse Ox 94 03/30/24 07:00 O2 Del Method Oxymask 03/30/24 07:00 O2 Flow Rate 2 03/30/24 07:00 FiO2 30 03/30/24 00:00 Oxygen Flow Rate 11 03/18/24 15:30 BMI result Body Mass Index 31.7 Appearance: awake. cvs: rrr, [id number] . res: air entry similar ,diminshed at bases abd: no rebound or guarding ,nt, bs present. ext pulses present , no cyanosis. neuro: axo3 , nonfocal. Objective Data Active Medications Albuterol/Ipratropium (Albuterol/Iprat 2.5/0.5mg 3 Ml Ampul.Neb) 3 ml INHALE RQ6H WHILE AWAKE [facility] Last Admin: 03/29/24 19:45 Dose: 3 ml Documented By: RHETT Aspirin (Aspirin Enteric Coated 81 Mg Tablet.) 81 mg PO DAILY [facility] Last Admin: 03/29/24 08:22 Dose: 81 mg Documented By: ELVIN Chlorhexidine Gluconate (Chlorhexidine Gluc Oral Rinse 15 Ml Mouthwash) 15 ml BUCCAL TID [facility] Last Admin: 03/29/24 20:24 Dose: 15 ml Documented By: EZIO Diphenhydramine HCl (Diphenhydramine Hcl 25 Mg Capsule) 25 mg PO Q6H PRN PRN Reason: Rash Last Admin: 03/29/24 23:48 Dose: 25 mg Documented By: BEVERLY Enoxaparin Sodium (Enoxaparin Sodium 40 Mg/0.4 Ml Syringe) 40 mg SUBCUT Q24H [facility] Last Admin: 03/29/24 08:34 Dose: 40 mg Documented By: ELVIN Piperacillin Sod/Tazobactam (Sod 4.5 gm/ Sodium Chloride) 100 mls @ 200 mls/hr IV Q6H [facility] Last Infusion: 03/30/24 06:21 Dose: Infused Documented By: BEVERLY Dextrose/Sodium Chloride (D51/2ns) 1,000 mls @ 50 mls/hr IVCONT .Q20H [facility] Insulin Glargine (Insulin Glargine,Hum.Rec.Anlog 100 Unit/Ml 10 Ml Vial) 15 unit SUBCUT DAILY [facility] Last Admin: 03/29/24 08:11 Dose: 15 unit Documented By: ELVIN Insulin Human Lispro (Insulin Lispro 100 Unit/Ml 3 Ml Vial) 0 unit SUBCUT Q6H [facility]; Protocol Last Admin: 03/30/24 05:53 Dose: Not Given Documented By: BEVERLY Non-Admin Reason: glucose out of range 136 Lactic Acid (Ammonium Lactate 12 % Cream 140 Gm Tube) 1 appl TOPICAL BID PRN; Protocol PRN Reason: Dry Skin Last Admin: 03/29/24 23:51 Dose: 1 appl Documented By: BEVERLY [place] Carbonate ([place] Carbonate 300 Mg Capsule) 300 mg PO BID [facility] Last Admin: 03/29/24 20:24 Dose: 300 mg Documented By: EZIO [place] Carbonate ([place] Carbonate 300 Mg Tablet) 150 mg PO BID [facility] Last Admin: 03/29/24 20:23 Dose: 150 mg Documented By: EZIO Sodium Chloride (0.9 % Sodium Chloride Flush 3 Ml Syringe) 3 ml IVFLUSH QSHIFT [facility] Last Admin: 03/30/24 00:20 Dose: 3 ml Documented By: BEVERLY Tamsulosin HCl (Tamsulosin Hcl 0.4 Mg Capsule) 0.4 mg PO BEDTIME [facility] Last Admin: 03/29/24 20:23 Dose: 0.4 mg Documented By: EZIO Topiramate (Topiramate 25 Mg Tablet) 50 mg PO BID [facility] Last Admin: 03/29/24 20:23 Dose: 50 mg Documented By: EZIO Labs 03/31/24 06:27 03/31/24 06:27 Labs: Laboratory Results - last 24 hr 03/29/24 03/29/24 03/29/24 13:29 17:55 23:50 MCV MCH MCHC RDW Plt Count MPV Immature Gran % (Auto) Neut % (Auto) Lymph % (Auto) [place] % (Auto) Eos % (Auto) Baso % (Auto) Lymph # (Auto) [place] # (Auto) Eos # (Auto) Baso # (Auto) Abs Immat Gran (auto) Absolute Neuts (auto) Absolute Nucleated RBC Nucleated RBC % (auto) VBG pH VBG pCO2 VBG pO2 VBG HCO3 VBG O2 Saturation VBG Base Excess Anion Gap Estim Creat Clear Calc Estimated GFR POC Glucose 133 H 132 H 127 H Random Glucose Calcium Phosphorus Magnesium 03/30/24 03/30/24 03/30/24 05:19 05:29 05:38 MCV 101.3 H MCH 28.9 MCHC 28.5 L RDW 14.0 Plt Count 237 MPV 10.9 Immature Gran % (Auto) 0.3 Neut % (Auto) 78.1 H Lymph % (Auto) 12.6 L [place] % (Auto) 4.3 Eos % (Auto) 4.3 H Baso % (Auto) 0.4 Lymph # (Auto) 1.5 [place] # (Auto) 0.5 Eos # (Auto) 0.5 H Baso # (Auto) 0.1 Abs Immat Gran (auto) 0.04 H Absolute Neuts (auto) 9.1 H Absolute Nucleated RBC 0.000 Nucleated RBC % (auto) 0.0 VBG pH 7.39 VBG pCO2 57 VBG pO2 38 VBG HCO3 35 H VBG O2 Saturation 59.0 VBG Base Excess 8.1 Anion Gap 14 Estim Creat Clear Calc 99.2 Estimated GFR > 60 POC Glucose 136 H Random Glucose 130 H Calcium 8.9 Phosphorus 3.6 Magnesium 2.7 H Assessment and Plan (1) Aspiration into airway: Status: Acute (2) COPD (chronic obstructive pulmonary disease): Status: Acute Plan as per ICU note: 63-year-old gentleman with underlying diabetes mellitus, TBI, seizure disorder, COPD admitted on 03/15/2024 with dyspnea. found to be in hypercarbic respiratory failure, necessitating BiPAP and upgraded to ICU, subsequently downgraded to floor, re-developed hypercarbic respiratory failure and re-upgraded to ICU, intubated on 03/19, extubated on 03/25, maintained in ICU d/t c/f persistent recurrent aspiration. Acute encephalopathy possibly due to significant psych history continue lithium and topiramate . Psychiatry in icu saw patient on 03/26 : advised hiren Toribio psych follwup diet advanced -seen by speech. Acute hypoxemic respiratory failure due to aspiration pneumonia on top of underlying COPd/? aspirational component : continue nebs ,oxygen ,antibiotics please see goal of care note from icu physician . dm : dm diet fs with sliding scale coverage. Hx seizure post TBI, schizophrenia, mood d/o: on topiramate and lithium dvt prophylax: s/c lovenox. Quality Stroke Does the patient have a stroke diagnosis?: No VTE Prior VTE?: No VTE Risk Level:: Medical - moderate - high VTE Device Contraindication: N/A - Device Ordered VTE Drug Contraindication: N/A - Med Ordered
[2024-03-30] MEDS: Lithium Carbonate 300 MG TABLET 150 MG PO ×2 (09:01→20:46)
[2024-03-30] MEDS: Topiramate 25 MG TABLET 50 MG PO ×2 (09:01→20:44)
[2024-03-30] MEDS: Lithium Carbonate 300 MG CAPSULE PO ×2 (09:02→20:45)
[2024-03-30] MEDS: Insulin Glargine,Hum.rec.anlog 100 UNIT/ML 10 ML VIAL 15 UNIT SUBCUT (09:02)
[2024-03-30] MEDS: Enoxaparin Sodium 40 MG/0.4 ML SYRINGE SUBCUT (09:03)
[2024-03-30] MEDS: Aspirin Enteric Coated 81 MG TABLET.DR PO (09:03)
[2024-03-30] MEDS: Dextrose 5 % and 0.45 % NaCl 1,000 ML 50 ML IVCONT (09:10)
--- NOTE | 2024-03-30 10:31 | MHC.CM.PN ---
Per rounds, pt is not ready for DC, he was moved to IMC today from ICU, DCP is return to LTC at [facility]. CM to follow for DC needs.
--- NOTE | 2024-03-30 11:27 | MHC.CLN ---
F/U NPO SINCE 03/27, DAY 4 NPO. PER SHOVEL HANDLE ASSEMBLER 03/29, CONTINUE NPO, AND WILL CONTINUE TO FOLLOW. CONTINUE TO FOLLOW FOR DIET ADVANCEMENT AND NUTRITIONAL NEEDS.
[2024-03-30 11:52] LABS: Glucose, Whole Blood 138 mg/dL (60-115)
--- NOTE | 2024-03-30 13:46 | MHC.SL.SWA ---
Speech Pathologist Impression: Risk of Aspiration, Oropharyngeal Dysphagia Risk of Aspiration Due to: Neurological Condition History of Pneumonia Hx of Recent Extubation Reduced Cognition Dysphasia Diet Status: Start NDD2/HTL Liquid Consistency and Strategies for Safe Swallow: Liquid Intake Recommendation: Honey Thick Liquid Intake Strategies: Small Sips No Straws Liquids by Teaspoon Only Solid Food Consistency: Dietary Recommendations: Grnd/Mech Altered (NDD2) Additional Modifications to Solid Foods: Recommend START on Ground/Mechanical (NDD2) diet with HONEY THICK liquids by tsp, pills crushed in puree. Patient demonstrates high level of impulsivity, may try to chug liquids if given cup. Patient will require nasal cannula during meals AND frequent breaks on 02 mask due to rapid desaturation noted off oxygen. Supervision of these elements with assistance as needed is required for meals at this time. Oral Medication Intake: Crushed with Puree Please contact the pharmacy regarding appropriate crushable or liquid drug formulations that are available whenever modified delivery is recommended. Compensatory Strategies and Precautions to be Taken for Safe Swallow: Sitting Upright (90 deg) Double Swallow No Straw Liquids from Spoon Small Bites and Sips Alternate Liquids/Solids Rate of Ingestion Change Oral Check Avoid Specific Foods Supervision While Eating and Drinking for Safe Swallow: Total Assistance (1:1) Foods to Avoid: Mixed consistencies Swallowing Recommended Treatments: Compens. Strategy Educat. Recommendation for Speech: Inpatient Speech Therapy Frequency/Duration: M-F while inpatient. Date Range for Service Req: Timeline to reassess: Machine Filler Shredder Clinican/Clinical Fellow: No Supervisory Statement: I have reviewed and agree with the student/clinical fellow's documentation: N/A Speech Language Pathologist: Lianne Ramirez M.A., CCC-FEDERAL JUDICIAL LAW CLERK
[2024-03-30 19:19] LABS: Sodium 148 mmol/L (135-145)
[2024-03-30] MEDS: Albuterol/Iprat 2.5/0.5MG 3 ML AMPUL.NEB INHALE (19:56)
[2024-03-30] MEDS: Tamsulosin HCL 0.4 MG CAPSULE PO (20:45)
[2024-03-30] MEDS: HaloperidoL 1 MG TABLET 0.5 MG PO (20:45)
[2024-03-31] VITALS (8 sets, daily range): BP systolic 124–163; BP diastolic 61–77; PULSE 60–88; RESP 16–20; TEMP 36.2–36.9; O2SAT 90–98
[2024-03-31] MEDS: Piperacillin Sodium/Tazobactam 4.5 GM in 0.9 % Sodium Chloride 100 ML IV ×4 (00:29→17:30)
[2024-03-31] MEDS: HaloperidoL 1 MG TABLET PO (00:30)
[2024-03-31 00:39] LABS: Glucose, Whole Blood 154 mg/dL (60-115)
[2024-03-31] MEDS: Insulin Lispro 100 UNIT/ML 3 ML VIAL SUBCUT ×4 (00:44→21:00)
[2024-03-31] MEDS: 0.9 % Sodium Chloride Flush 3 ML SYRINGE IVFLUSH ×3 (00:46→16:11)
[2024-03-31 05:18] LABS: Glucose, Whole Blood 179 mg/dL (60-115)
[2024-03-31 06:37] LABS: MANUAL DIFF FLAG NO
[2024-03-31 06:39] LABS: Glucose, Whole Blood 183 mg/dL (60-115)
[2024-03-31 06:55] LABS: Anion Gap 11 (12-20); Blood Urea Nitrogen 16 mg/dL (9-16); Carbon Dioxide 30 mmol/L (22-29); Chloride 108 mmol/L (96-108); Creatinine Clr Calc Pharmacy 84.3; Estimated Glomerular Filt Rate > 60; Glucose Random 193 mg/dL (60-115); Magnesium 2.7 mg/dL (1.6-2.6); Phosphorus 3.6 mg/dL (2.7-4.5); Potassium 3.8 mmol/L (3.3-5.1); Sodium 145 mmol/L (135-145)
[2024-03-31 07:14] LABS: Basophils Absolute Auto 0.1 X10*3/uL (0.0-0.2); Basophils Percent Auto 0.5 % (0-2); Eosinophils Absolute Auto 0.5 X10*3/uL (0.0-0.4); Eosinophils Percent Auto 4.4 % (0-4); Hematocrit 47.1 % (42.0-52.0); Hemoglobin 13.4 g/dl (14.0-18.0); Imm Gran Abs Auto 0.05 X10*3/uL (0.00-0.03); Imm Gran Pct Auto 0.5 % (0.0-0.4); Lymphocytes Absolute Auto 1.3 X10*3/uL (1.2-4.9); Lymphocytes Percent Auto 11.9 % (20-40); Mean Corpuscular HGB Conc 28.5 g/dl (31.0-36.0); Mean Corpuscular Volume 101.9 fL (80.0-98.0); Monocytes Absolute Auto 0.5 X10*3/uL (0.1-1.2); Monocytes Percent Auto 4.2 % (2-11); Neutrophils Absolute Auto 8.4 x10*3/uL (2.0-8.3); Neutrophils Percent Auto 78.5 % (45-73); Platelet Count 236 X10*3/uL (160-400); Red Blood Count 4.62 X10*6/uL (4.60-5.80); Red Cell Distribution Width 14.1 % (11.0-16.0); White Blood Count 10.6 X10*3/uL (4.8-10.8)
[2024-03-31] MEDS: Enoxaparin Sodium 40 MG/0.4 ML SYRINGE SUBCUT (08:20)
[2024-03-31] MEDS: Insulin Glargine,Hum.rec.anlog 100 UNIT/ML 10 ML VIAL 15 UNIT SUBCUT (08:20)
[2024-03-31] MEDS: Lithium Carbonate 300 MG CAPSULE PO ×2 (08:20→19:26)
[2024-03-31] MEDS: Aspirin Enteric Coated 81 MG TABLET.DR PO (08:20)
[2024-03-31] MEDS: Topiramate 25 MG TABLET 50 MG PO ×2 (08:21→19:26)
[2024-03-31] MEDS: Lithium Carbonate 300 MG TABLET 150 MG PO ×2 (08:21→19:25)
[2024-03-31] MEDS: HaloperidoL 1 MG TABLET 0.5 MG PO ×2 (08:28→16:10)
[2024-03-31 11:32] LABS: Glucose, Whole Blood 204 mg/dL (60-115)
--- NOTE | 2024-03-31 12:58 | MHC.SL.SWA ---
Speech Pathologist Impression: Variable moderate oral, and moderate to significant pharyngeal dysphagia Risk of Aspiration Due to: Neurological Condition History of Pneumonia Hx of Recent Extubation Reduced Cognition Dysphasia Diet Status: Recc NDD1 with HTL, 1:1 feeding d/t impulsivity, elevated risk for airway penetration of PO given behavioral and pysiological deficits (overstuffing mouth, work of breathing s/p swallow, increased secretions with poor mucous management) Liquid Consistency and Strategies for Safe Swallow: Liquid Intake Recommendation: Honey Thick Liquid Intake Strategies: Small Sips No Straws Liquids by Teaspoon Only Solid Food Consistency: Dietary Recommendations: Pureed (NDD1) Additional Modifications to Solid Foods: Recommend NDD1 (purees) with HONEY THICK liquids by tsp, pills crushed in puree. Patient demonstrates high level of impulsivity, may try to chug liquids if given cup. Patient will require nasal cannula during meals AND frequent breaks on 02 mask due to rapid desaturation noted off oxygen. Supervision of these elements with assistance as needed is required for meals at this time. Oral Medication Intake: Crushed with Puree Please contact the pharmacy regarding appropriate crushable or liquid drug formulations that are available whenever modified delivery is recommended. Compensatory Strategies and Precautions to be Taken for Safe Swallow: Sitting Upright (90 deg) Double Swallow No Straw Liquids from Spoon Small Bites and Sips Alternate Liquids/Solids Rate of Ingestion Change Oral Check Avoid Specific Foods Supervision While Eating and Drinking for Safe Swallow: Total Assistance (1:1) Foods to Avoid: Mixed consistencies Swallowing Recommended Treatments: Compens. Strategy Educat. Recommendation for Speech: Inpatient Speech Therapy Comment: Recc NDD1 with HTL, aspiration precautions, 1:1 feeding, slow pacing, upright position to highest degree pt will tolerate, meds crushed in puree, no straws. [employer] RECREATION DIRECTOR continues to follow. Patient will require nasal cannula during meals AND frequent breaks on 02 mask due to rapid desaturation noted off oxygen. Supervision of these elements with assistance as needed is required for meals at this time. Frequency/Duration: M-F while inpatient. Date Range for Service Req: Timeline to reassess: Phone Operator Clinican/Clinical Fellow: No Supervisory Statement: I have reviewed and agree with the student/clinical fellow's documentation: N/A Speech Language Pathologist: Marybeth Phan M.S., [facility] RECREATION DIRECTOR
--- NOTE | 2024-03-31 13:36 | MHC.CM.PN ---
EMR REVIEWED, PT W/COPD/ASPIRATION PNA, PT REMAINS ON IV ABX AND NPO, PLAN CONT'S TO BE TO RETURN TO LTC AT [facility], CM WILL CONT TO FOLLOW DC NEEDS.
--- NOTE | 2024-03-31 13:46 | MHC.CLN ---
F/U PER TECHNICAL ADVISOR 03/31, PUREE CONSISTENCY WITH HONEY THICK LIQUIDS. LIBERALIZED DIET FROM DIABETIC TO REGULAR TO PROMOTE INTAKE. ADDING FORTIFIED ICE CREAM (MAGIC CUP) TID TO PROVIDE 870 KCALS, 27 G PROTEIN. RECENT NPO STATUS X 4 DAYS DUE TO TO SWALLOWING CONCERNS. SKIN WITH REDNESS TO COCCYX AND QUESTION DTI. CONTINUE TO FOLLOW FOR DIET TOLERANCE AND NUTRITIONAL NEEDS.
[2024-03-31] MEDS: Albuterol/Iprat 2.5/0.5MG 3 ML AMPUL.NEB INHALE ×2 (15:21→18:46)
[2024-03-31 15:39] LABS: Glucose, Whole Blood 133 mg/dL (60-115)
[2024-03-31 15:39] LABS: Glucose, Whole Blood 137 mg/dL (60-115)
--- NOTE | 2024-03-31 16:15 | P.PNIM_ITS ---
Subjective Subjective Date of Service: 03/31/24 Interval History: multiple issues -copd,asp pneumonitis Review of Systems sob dumont seems more comfortable seems somewhat anxious Physical Exam 2 Vital Signs: Vital Signs: Last Vital Signs Temp 97.8 F 03/31/24 15:55 Pulse 60 03/31/24 15:55 Resp 20 03/31/24 15:55 BP 163/73 H 03/31/24 15:55 Pulse Ox 98 03/31/24 15:55 O2 Del Method Room Air 03/31/24 15:55 O2 Flow Rate 2 03/31/24 11:48 FiO2 30 03/30/24 00:00 Oxygen Flow Rate 11 03/18/24 15:30 BMI result Body Mass Index 31.7 Appearance: awake. cvs: rrr, [id number] . res: air entry similar ,diminshed at bases abd: no rebound or guarding ,nt, bs present. ext pulses present , no cyanosis. neuro: nonfocal. Objective Data Active Medications Albuterol/Ipratropium (Albuterol/Iprat 2.5/0.5mg 3 Ml Ampul.Neb) 3 ml INHALE RQ6H WHILE AWAKE [facility] Last Admin: 03/31/24 15:21 Dose: 3 ml Documented By: BARNEY Aspirin (Aspirin Enteric Coated 81 Mg Tablet.) 81 mg PO DAILY [facility] Last Admin: 03/31/24 08:20 Dose: 81 mg Documented By: NORI Diphenhydramine HCl (Diphenhydramine Hcl 25 Mg Capsule) 25 mg PO Q6H PRN PRN Reason: Rash Last Admin: 03/29/24 23:48 Dose: 25 mg Documented By: BEVERLY Enoxaparin Sodium (Enoxaparin Sodium 40 Mg/0.4 Ml Syringe) 40 mg SUBCUT Q24H [facility] Last Admin: 03/31/24 08:20 Dose: 40 mg Documented By: NORI Haloperidol (Haloperidol 1 Mg Tablet) 0.5 mg PO TID [facility] Last Admin: 03/31/24 16:10 Dose: 0.5 mg Documented By: NORI Haloperidol (Haloperidol 1 Mg Tablet) 2 mg PO Q8H PRN PRN Reason: anxiety/restlessness Piperacillin Sod/Tazobactam (Sod 4.5 gm/ Sodium Chloride) 100 mls @ 200 mls/hr IV Q6H [facility] Last Infusion: 03/31/24 13:33 Dose: Infused Documented By: NORI Insulin Glargine (Insulin Glargine,Hum.Rec.Anlog 100 Unit/Ml 10 Ml Vial) 15 unit SUBCUT DAILY [facility] Last Admin: 03/31/24 08:20 Dose: 15 unit Documented By: NORI Insulin Human Lispro (Insulin Lispro 100 Unit/Ml 3 Ml Vial) 0 unit SUBCUT QIDACHS [facility]; Protocol Last Admin: 03/31/24 16:00 Dose: Not Given Documented By: NORI Non-Admin Reason: No Insulin Coverage Lactic Acid (Ammonium Lactate 12 % Cream 140 Gm Tube) 1 appl TOPICAL BID PRN; Protocol PRN Reason: Dry Skin Last Admin: 03/29/24 23:51 Dose: 1 appl Documented By: BEVERLY [place] Carbonate ([place] Carbonate 300 Mg Capsule) 300 mg PO BID [facility] Last Admin: 03/31/24 08:20 Dose: 300 mg Documented By: NORI [place] Carbonate ([place] Carbonate 300 Mg Tablet) 150 mg PO BID [facility] Last Admin: 03/31/24 08:21 Dose: 150 mg Documented By: NORI Sodium Chloride (0.9 % Sodium Chloride Flush 3 Ml Syringe) 3 ml IVFLUSH QSHIFT [facility] Last Admin: 03/31/24 16:11 Dose: 3 ml Documented By: NORI Tamsulosin HCl (Tamsulosin Hcl 0.4 Mg Capsule) 0.4 mg PO BEDTIME [facility] Last Admin: 03/30/24 20:45 Dose: 0.4 mg Documented By: KEERTHI Topiramate (Topiramate 25 Mg Tablet) 50 mg PO BID [facility] Last Admin: 03/31/24 08:21 Dose: 50 mg Documented By: NORI Labs 03/31/24 06:27 03/31/24 06:27 Labs: Laboratory Results - last 24 hr 03/31/24 03/31/24 03/31/24 00:36 05:13 06:27 MCV 101.9 H MCH 29.0 MCHC 28.5 L RDW 14.1 Plt Count 236 MPV 11.0 Immature Gran % (Auto) 0.5 H Neut % (Auto) 78.5 H Lymph % (Auto) 11.9 L [place] % (Auto) 4.2 Eos % (Auto) 4.4 H Baso % (Auto) 0.5 Lymph # (Auto) 1.3 [place] # (Auto) 0.5 Eos # (Auto) 0.5 H Baso # (Auto) 0.1 Abs Immat Gran (auto) 0.05 H Absolute Neuts (auto) 8.4 H Absolute Nucleated RBC 0.000 Nucleated RBC % (auto) 0.0 Anion Gap 11 L Estim Creat Clear Calc 84.3 Estimated GFR > 60 POC Glucose 154 H 179 H Random Glucose 193 H Calcium 9.0 Phosphorus 3.6 Magnesium 2.7 H 03/31/24 03/31/24 03/31/24 06:34 11:28 15:22 MCV MCH MCHC RDW Plt Count MPV Immature Gran % (Auto) Neut % (Auto) Lymph % (Auto) [place] % (Auto) Eos % (Auto) Baso % (Auto) Lymph # (Auto) [place] # (Auto) Eos # (Auto) Baso # (Auto) Abs Immat Gran (auto) Absolute Neuts (auto) Absolute Nucleated RBC Nucleated RBC % (auto) Anion Gap Estim Creat Clear Calc Estimated GFR POC Glucose 183 H 204 H 137 H Random Glucose Calcium Phosphorus Magnesium 03/31/24 15:29 MCV MCH MCHC RDW Plt Count MPV Immature Gran % (Auto) Neut % (Auto) Lymph % (Auto) [place] % (Auto) Eos % (Auto) Baso % (Auto) Lymph # (Auto) [place] # (Auto) Eos # (Auto) Baso # (Auto) Abs Immat Gran (auto) Absolute Neuts (auto) Absolute Nucleated RBC Nucleated RBC % (auto) Anion Gap Estim Creat Clear Calc Estimated GFR POC Glucose 133 H Random Glucose Calcium Phosphorus Magnesium Assessment and Plan (1) Aspiration into airway: Status: Acute (2) COPD (chronic obstructive pulmonary disease): Status: Acute Plan as per ICU note: 63-year-old gentleman with underlying diabetes mellitus, TBI, seizure disorder, COPD admitted on 03/15/2024 with dyspnea. found to be in hypercarbic respiratory failure, necessitating BiPAP and upgraded to ICU, subsequently downgraded to floor, re-developed hypercarbic respiratory failure and re-upgraded to ICU, intubated on 03/19, extubated on 03/25, maintained in ICU d/t c/f persistent recurrent aspiration. Acute encephalopathy possibly due to significant psych history continue lithium and topiramate . Psychiatry in icu saw patient on 03/26 : advised hiren Toribio psych follwup diet advanced -seen by speech. Acute hypoxemic respiratory failure due to aspiration pneumonia on top of underlying COPd/? aspirational component : continue nebs ,oxygen ,antibiotics please see goal of care note from icu physician . dm : dm diet fs with sliding scale coverage. Hx seizure post TBI, schizophrenia, mood d/o: on topiramate and lithium dvt prophylax: s/c lovenox. Quality Stroke Does the patient have a stroke diagnosis?: No VTE Prior VTE?: No VTE Risk Level:: Medical - moderate - high VTE Device Contraindication: N/A - Device Ordered VTE Drug Contraindication: N/A - Med Ordered
--- NOTE | 2024-03-31 17:14 | HO.HSGERICON ---
History of Present Illness Data of Consult Service Date: 03/31/24 Requesting physician: Yordy Brandon Primary Care Provider: DO AGUSTO Dueñas Reason for consult: Follow-up by Psychiatry The patient is a 63-year-old male with a past history of traumatic brain injury, pulmonary edema, COPD, acute respiratory failure was brought in admitted into the hospital after he was in respiratory failure. He was initially treated and later on transferred to ICU and intubated. The patient was admitted back on 4 to the ICU twice. Eventually, he improved and he was transferred to telemetry [facility] floor. The present consult was asked as per request of the treating physician. Apparently the patient is now much better, he does not need the VPAP and he had been more alert and oriented. On interview the patient at bedside and he could not remember that he spoke with me, he stated that he has lost time and he does not remember a lot of 10 since he was on delirium. He was much awake and alert pleasant cooperative with some dysarthria due to the TBI. We discussed the case with the primary team and I suggested to discontinue the Haldol 0.5 p.o. t.i.d. since he is not on delirium anymore. Yes keep the Haldol 2 mg p.o. q.8 hours p.r.n. agitation. Review of Systems Review of Systems: Yes all other systems are reviewed and are negative [facility] Medical History Diabetes mellitus Epilepsy Acute respiratory failure with hypoxia and hypercarbia Aspiration pneumonia Leukocytosis COPD (chronic obstructive pulmonary disease) TBI (traumatic brain injury) Functional capacity: bed bound Social History Household Members: None Housing: Assisted Living Facility Do you presently have visiting nurse or other home services: No ([facility]) Comment: 1:1 sitter Patient Tobacco Use Status: Current everyday Tobacco user Tobacco use type: Cigarette Cigarettes Per Day: 8 e-Cigarette/Vaping Use: Never Used Second Hand Smoke Exposure: No Advance Directives Date on File: 03/15/24 Meds Allergies Allergy/AdvReac Type Severity Reaction Status Date / Time vancomycin Allergy Severe Redness of Verified 03/24/24 11:27 Skin Active Medications: Current Medications Albuterol/Ipratropium (Albuterol/Iprat 2.5/0.5mg 3 Ml Ampul.Neb) 3 ml INHALE RQ6H WHILE AWAKE [facility] Last Admin: 03/31/24 15:21 Dose: 3 ml Aspirin (Aspirin Enteric Coated 81 Mg Tablet.Dr) 81 mg PO DAILY [facility] Last Admin: 03/31/24 08:20 Dose: 81 mg Diphenhydramine HCl (Diphenhydramine Hcl 25 Mg Capsule) 25 mg PO Q6H PRN PRN Reason: Rash Last Admin: 03/29/24 23:48 Dose: 25 mg Enoxaparin Sodium (Enoxaparin Sodium 40 Mg/0.4 Ml Syringe) 40 mg SUBCUT Q24H [facility] Last Admin: 03/31/24 08:20 Dose: 40 mg Haloperidol (Haloperidol 1 Mg Tablet) 2 mg PO Q8H PRN PRN Reason: anxiety/restlessness Piperacillin Sod/Tazobactam (Sod 4.5 gm/ Sodium Chloride) 100 mls @ 200 mls/hr IV Q6H [facility] Last Infusion: 03/31/24 13:33 Dose: Infused Insulin Glargine (Insulin Glargine,Hum.Rec.Anlog 100 Unit/Ml 10 Ml Vial) 15 unit SUBCUT DAILY [facility] Last Admin: 03/31/24 08:20 Dose: 15 unit Insulin Human Lispro (Insulin Lispro 100 Unit/Ml 3 Ml Vial) 0 unit SUBCUT QIDACHS [facility]; Protocol Last Admin: 03/31/24 16:00 Dose: Not Given Lactic Acid (Ammonium Lactate 12 % Cream 140 Gm Tube) 1 appl TOPICAL BID PRN; Protocol PRN Reason: Dry Skin Last Admin: 03/29/24 23:51 Dose: 1 appl [place] Carbonate ([place] Carbonate 300 Mg Capsule) 300 mg PO BID [facility] Last Admin: 03/31/24 08:20 Dose: 300 mg [place] Carbonate ([place] Carbonate 300 Mg Tablet) 150 mg PO BID [facility] Last Admin: 03/31/24 08:21 Dose: 150 mg Sodium Chloride (0.9 % Sodium Chloride Flush 3 Ml Syringe) 3 ml IVFLUSH QSHIFT [facility] Last Admin: 03/31/24 16:11 Dose: 3 ml Tamsulosin HCl (Tamsulosin Hcl 0.4 Mg Capsule) 0.4 mg PO BEDTIME [facility] Last Admin: 03/30/24 20:45 Dose: 0.4 mg Topiramate (Topiramate 25 Mg Tablet) 50 mg PO BID [facility] Last Admin: 03/31/24 08:21 Dose: 50 mg Home Medications ?Medication ?Instructions ?Recorded ?Confirmed ?Last Taken ?Type acetaminophen 325 mg tablet 650 mg PO Q6H PRN Fever Or Pain 03/15/24 03/15/24 Unknown History albuterol sulfate 90 mcg/actuation 2 puff inhalation Q6H PRN 03/15/24 03/15/24 Unknown History aerosol inhaler Bronchospasm aspirin 81 mg tablet,delayed 81 mg PO DAILY 03/15/24 03/15/24 Unknown History release atorvastatin 10 mg tablet 10 mg PO BEDTIME 03/15/24 03/15/24 Unknown History bisacodyl 10 mg rectal suppository 10 mg TN DAILY PRN constipation if 03/15/24 03/15/24 Unknown History senna ineffective fexofenadine 180 mg tablet 180 mg PO DAILY 03/15/24 03/15/24 Unknown History fluticasone furoate 100 1 inh inhalation DAILY 03/15/24 03/15/24 Unknown History mcg-vilanterol 25 mcg/dose inhalation powder (Breo Ellipta) guaifenesin 200 mg/5 mL oral liquid 400 mg PO Q4H PRN Congestion 03/15/24 03/15/24 Unknown History ibuprofen 600 mg tablet 600 mg PO Q8H PRN Pain 03/15/24 03/15/24 Unknown History insulin NPH isoph U-100 human 100 12 unit subcut BEDTIME 03/15/24 03/15/24 Unknown History unit/mL subcutaneous suspension (Humulin N NPH U-100 Insulin (isophane susp)) insulin NPH isoph U-100 human 100 18 unit subcut DAILY 03/15/24 03/15/24 Unknown History unit/mL subcutaneous suspension (Humulin N NPH U-100 Insulin (isophane susp)) lithium carbonate 150 mg capsule 150 mg PO BID 03/15/24 03/15/24 Unknown History lithium carbonate 300 mg capsule 300 mg PO BID 03/15/24 03/15/24 Unknown History lorazepam 1 mg tablet 1 mg PO BID 03/15/24 03/15/24 Unknown History melatonin 3 mg tablet 9 mg PO BEDTIME 03/15/24 03/15/24 Unknown History metformin 500 mg tablet 500 mg PO BID 03/15/24 03/15/24 Unknown History ondansetron HCl 8 mg tablet 8 mg PO Q6H PRN nausea/vomiting 03/15/24 03/15/24 Unknown History peg [id number] 1 2 drp ophthalmic (eye) Q8H PRN 03/15/24 03/15/24 Unknown History %-0.2 %-0.2 % eye drops itchy eyes (Artificial Tears ([id number])) propranolol 10 mg tablet 5 mg PO BID 03/15/24 03/15/24 Unknown History sennosides 8.6 mg-docusate sodium 1 tab-cap PO BID 03/15/24 03/15/24 Unknown History 50 mg tablet (Senna with Docusate Sodium) simethicone 80 mg tablet 80 mg PO Q6H PRN 03/15/24 03/15/24 Unknown History flatulence/bloating sodium phosphates 19 gram-7 118 ml TN DAILY PRN constipation 03/15/24 03/15/24 Unknown History gram/118 mL enema (Fleet Enema) if bisacodyl supp ineffective tamsulosin 0.4 mg capsule 0.4 mg PO BEDTIME 03/15/24 03/15/24 Unknown History tiotropium bromide 2.5 2 puff inhalation DAILY 03/15/24 03/15/24 Unknown History mcg/actuation mist for inhalation (Spiriva Respimat) topiramate 50 mg tablet 50 mg PO BID 03/15/24 03/15/24 Unknown History trazodone 50 mg tablet 75 mg PO BEDTIME 03/15/24 03/15/24 Unknown History Results Labs 03/31/24 06:27 03/31/24 06:27 Labs: Laboratory Results - last 24 hr 03/31/24 03/31/24 03/31/24 00:36 05:13 06:27 MCV 101.9 H MCH 29.0 MCHC 28.5 L RDW 14.1 Plt Count 236 MPV 11.0 Immature Gran % (Auto) 0.5 H Neut % (Auto) 78.5 H Lymph % (Auto) 11.9 L [place] % (Auto) 4.2 Eos % (Auto) 4.4 H Baso % (Auto) 0.5 Lymph # (Auto) 1.3 [place] # (Auto) 0.5 Eos # (Auto) 0.5 H Baso # (Auto) 0.1 Abs Immat Gran (auto) 0.05 H Absolute Neuts (auto) 8.4 H Absolute Nucleated RBC 0.000 Nucleated RBC % (auto) 0.0 Anion Gap 11 L Estim Creat Clear Calc 84.3 Estimated GFR > 60 POC Glucose 154 H 179 H Random Glucose 193 H Calcium 9.0 Phosphorus 3.6 Magnesium 2.7 H 03/31/24 03/31/24 03/31/24 06:34 11:28 15:22 MCV MCH MCHC RDW Plt Count MPV Immature Gran % (Auto) Neut % (Auto) Lymph % (Auto) [place] % (Auto) Eos % (Auto) Baso % (Auto) Lymph # (Auto) [place] # (Auto) Eos # (Auto) Baso # (Auto) Abs Immat Gran (auto) Absolute Neuts (auto) Absolute Nucleated RBC Nucleated RBC % (auto) Anion Gap Estim Creat Clear Calc Estimated GFR POC Glucose 183 H 204 H 137 H Random Glucose Calcium Phosphorus Magnesium 03/31/24 15:29 MCV MCH MCHC RDW Plt Count MPV Immature Gran % (Auto) Neut % (Auto) Lymph % (Auto) [place] % (Auto) Eos % (Auto) Baso % (Auto) Lymph # (Auto) [place] # (Auto) Eos # (Auto) Baso # (Auto) Abs Immat Gran (auto) Absolute Neuts (auto) Absolute Nucleated RBC Nucleated RBC % (auto) Anion Gap Estim Creat Clear Calc Estimated GFR POC Glucose 133 H Random Glucose Calcium Phosphorus Magnesium Assessment and Plan (1) Encephalopathy: Qualifiers: Encephalopathy type: unspecified encephalopathy Qualified Code(s): G93.40 - Encephalopathy, unspecified Status: Acute (2) Acute respiratory failure with hypercapnia: Status: Acute (3) TBI (traumatic brain injury): Status: Acute Plan The patient is a 63-year-old male, with a past history of traumatic brain injury, encephalopathy, COPD pulmonary edema admitted for respiratory failure that needed to be intubated the certain point. The patient has a past history of mental illness he is a very poor historian but apparently he lives in a senior care and suddenly he had respiratory symptoms and was admitted into the hospital for medical stabilization. This time, the patient looks less delirious he looks more alert and oriented his aware that he was very sick and unable to remember details when he was on delirium due to hypoxemia. At this moment he is alert and oriented, no need of Haldol 0.5 p.o. scheduled. Diagnosis 1. Delirium induced to hypoxemia in resolution 2. Traumatic brain injury 3. Mood disorder. Plan 1. Keep lithium as prescribed. Level of lithium on therapeutic range the need to adjust at this moment 2. Discontinue Haldol 0.5 p.o. t.i.d. . 3. Avoid benzodiazepines t since it can depressed his respiratory function and worsening the delirium that is in resolution at this moment. 4. Keep Haldol 2 mg p.o. t.i.d. p.r.n. agitation 5. Reassessment as demand Total time managing care of this patient today: 45 minutes. Physical Exam Vital Signs: Last Vital Signs Temp 97.8 F 03/31/24 15:55 Pulse 60 03/31/24 15:55 Resp 20 03/31/24 15:55 BP 163/73 H 03/31/24 15:55 Pulse Ox 98 03/31/24 15:55 O2 Del Method Room Air 03/31/24 15:55 O2 Flow Rate 2 03/31/24 11:48 FiO2 30 03/30/24 00:00 Oxygen Flow Rate 11 03/18/24 15:30 BMI result Body Mass Index 31.7 Neuro Cranial nerves: Yes CN's II-XII intact bilaterally Psych Appearance: disheveled Speech and movement: Other speech and movement exam findings present (Psych) (Slightly dysarthric) Affect: normal affect Attitude: cooperative Thought content: other (Poverty of content) Insight: Fair insight present (Psych) Judgement: Fair judgement present (Psych)
[2024-03-31] MEDS: Tamsulosin HCL 0.4 MG CAPSULE PO (19:25)
[2024-03-31] MEDS: HaloperidoL 1 MG TABLET 2 MG PO (19:26)
[2024-03-31 20:57] LABS: Glucose, Whole Blood 226 mg/dL (60-115)
[2024-04-01] VITALS (7 sets, daily range): BP systolic 114–152; BP diastolic 64–81; PULSE 61–81; RESP 16–20; TEMP 36.7–37.1; O2SAT 91–97
[2024-04-01] MEDS: Piperacillin Sodium/Tazobactam 4.5 GM in 0.9 % Sodium Chloride 100 ML IV ×2 (00:31→05:00)
[2024-04-01] MEDS: 0.9 % Sodium Chloride Flush 3 ML SYRINGE IVFLUSH ×4 (01:38→19:34)
[2024-04-01 07:12] LABS: Glucose, Whole Blood 130 mg/dL (60-115)
[2024-04-01] MEDS: Albuterol/Iprat 2.5/0.5MG 3 ML AMPUL.NEB INHALE ×2 (07:55→20:05)
[2024-04-01 08:09] LABS: MANUAL DIFF FLAG NO
[2024-04-01 08:13] LABS: Basophils Absolute Auto 0.1 X10*3/uL (0.0-0.2); Basophils Percent Auto 0.5 % (0-2); Eosinophils Absolute Auto 0.6 X10*3/uL (0.0-0.4); Eosinophils Percent Auto 5.6 % (0-4); Hematocrit 44.3 % (42.0-52.0); Hemoglobin 12.9 g/dl (14.0-18.0); Imm Gran Abs Auto 0.02 X10*3/uL (0.00-0.03); Imm Gran Pct Auto 0.2 % (0.0-0.4); Lymphocytes Absolute Auto 1.2 X10*3/uL (1.2-4.9); Lymphocytes Percent Auto 12.3 % (20-40); Mean Corpuscular HGB Conc 29.1 g/dl (31.0-36.0); Mean Corpuscular Hemoglobin 29.3 pg (27.0-33.0); Mean Corpuscular Volume 100.5 fL (80.0-98.0); Mean Platelet Volume 10.7 fL (9.4-12.4); Monocytes Absolute Auto 0.3 X10*3/uL (0.1-1.2); Monocytes Percent Auto 3.5 % (2-11); Neutrophils Absolute Auto 7.6 x10*3/uL (2.0-8.3); Neutrophils Percent Auto 77.9 % (45-73); Platelet Count 218 X10*3/uL (160-400); Red Blood Count 4.41 X10*6/uL (4.60-5.80); White Blood Count 9.8 X10*3/uL (4.8-10.8)
[2024-04-01 08:27] LABS: Anion Gap 10 (12-20); Blood Urea Nitrogen 14 mg/dL (9-16); Calcium 8.9 mg/dL (8.4-10.2); Carbon Dioxide 32 mmol/L (22-29); Chloride 106 mmol/L (96-108); Creatinine Clr Calc Pharmacy 96.2; Estimated Glomerular Filt Rate > 60; Glucose Random 192 mg/dL (60-115); Magnesium 2.6 mg/dL (1.6-2.6); Phosphorus 3.5 mg/dL (2.7-4.5); Potassium 3.8 mmol/L (3.3-5.1); Sodium 144 mmol/L (135-145)
[2024-04-01] MEDS: Topiramate 25 MG TABLET 50 MG PO ×2 (10:43→19:27)
[2024-04-01] MEDS: Lithium Carbonate 300 MG CAPSULE PO ×2 (10:43→19:27)
[2024-04-01] MEDS: Aspirin Enteric Coated 81 MG TABLET.DR PO (10:43)
[2024-04-01] MEDS: Lithium Carbonate 300 MG TABLET 150 MG PO ×2 (10:44→19:27)
[2024-04-01] MEDS: Insulin Glargine,Hum.rec.anlog 100 UNIT/ML 10 ML VIAL 15 UNIT SUBCUT (10:46)
[2024-04-01] MEDS: Enoxaparin Sodium 40 MG/0.4 ML SYRINGE SUBCUT (10:46)
[2024-04-01 11:06] LABS: Glucose, Whole Blood 200 mg/dL (60-115)
--- NOTE | 2024-04-01 11:50 | MHC.CM.PN ---
Addendum entered by Hali Hinkle, RN 04/02/24 10:43: PT'S DC POSTONED D/T NEEDING CHART FAX[place] TO [place], PER [facility] THEY WILL NEED AUTH IN WRITING PRIOR TO PT RETURNING. Original Note: PT MEDICALLY CLEARED FOR DC TO RETUN TO [facility] W/NEW HOME O2 2L NC AND DIET, PT'S HCP [facility] CONTACTED AT 11:45AM AND UPDATED ON PLAN, IMM 04/01/24 DELIVERED, [facility] FOR TRANSPORT AT 3PM
--- NOTE | 2024-04-01 11:52 | PM.DS ---
DS: Providers Provider Date of Service: 04/01/24 Date of admission: 03/15/24 06:38 Date of discharge: 04/01/24 Primary care physician: Hilario Blank DO Consults: 03/18/24 15:34 Consult for Sitter Routine Reason for consultation: behavior 03/24/24 07:19 Consult to Wound Care Routine Reason for consultation: coccyx Has provider been notified: No 03/30/24 08:03 Consult to Wound Care Routine Reason for consultation: Inner mouth skin integrity issues improved 03/30/24 11:03 Consult to Psychiatry Routine Consulting Provider: [facility] Psych Covering Reason for consultation: Schizophrenic, agitation Has provider been notified: No Attending physician on discharge: Yordy Brandon Discharging clinician: Yordy Brandon DS: Diagnosis Discharge Diagnosis (1) Encephalopathy: Status: Acute (2) Acute respiratory failure with hypercapnia: Status: Acute (3) TBI (traumatic brain injury): Status: Acute DS: Summary Hospital Course Hospital Course: HPi:63 years old male with PMH of TBI, seizure disorder, COPD not on O2 presented from [facility] with sudden onset SOB, dyspnea and hypoxia. The patient was unable to provide much of history. he reported feeling SOB and having (breathing problem). placed on Bipap and weaned down to high flow oxygen. The patient became obtunded and repeat blood gas showed hypercapnia and respiratory acidosis. he was placed on BiPap again and plan was to transfer him to different hospital. He improved and started to remove the bipap and asking not to be moved. his HCP was contacted by ER provider and reported not to try to bother him with BiPAP if he refuses it. the patient looks more alert at time of interview and reports feeling better but was confused about his time in ER. CXR negative for any acute findings. Negative for Covid,RSV and Flu. Has Leukocytosis, and elevated tro that trended down. Admitted for further management and treatment. Hospital course: 63-year-old gentleman with underlying diabetes mellitus, TBI, seizure disorder, COPD admitted on 03/15/2024 with dyspnea. found to be in hypercarbic respiratory failure, necessitating BiPAP and upgraded to ICU, subsequently downgraded to floor, re-developed hypercarbic respiratory failure and re-upgraded to ICU, intubated on 03/19, extubated on 03/25, maintained in ICU d/t c/f persistent recurrent aspiration. Acute hypoxemic respiratory failure due to aspiration pneumonia on top of underlying COPd/? aspirational component : continue nebs ,oxygen , IV Zosyn: Patient respiratory status improved significantly currently only on 1 L oxygen and maintaining sats in 90s, please consider tapering down oxygen in [facility] . Patient will go to rehab with Augmentin p.o. 875 mg b.i.d for 3 more days. Discussed with the Pulmonary patient consider advised to wear BiPAP at night, patient is noncompliant at baseline. Acute encephalopathy possibly due to significant psych history Psychiatry in icu saw patient on 03/26 : advised p.r.n. Haldol, and trazodone and lorazepam was on hold as per psych. Subsequently patient's mental status seems to be improved the baseline with supportive care and treating respiratory failure. Discussed with the psych patient will continue his psych medications including lithium, topiramate, advised for changing lorazepam p.r.n for for intermittent agitation versus delirium. Seen by speech and swallow and dietary: Please see discharge instruction for diet changes. Hx seizure post TBI, schizophrenia, mood d/o: on topiramate and lithium . skin: Topical Wound Care Recommendations: Bilateral Inner Upper and Lower Lip - Provide frequent oral / mouth care. plan: complete augmentin 875mg po bid -please repeat chest imaging in 3-4 weeks to see resolution of pneumonia. discussed with pulm dr jett:he is noncomplaint with bipap, we strongly suggest night time bipap use. psych -his lorazepam 1 mg po bid prn for intermittent agitation. moniter respitory closely. Assessment and plan coordination time spent 40 minute. Time Attestation Total time managing care of this patient today: 40 mintues. Discharge Coordination Time (in mins): 40 minute. Quality: Safe Use of Opioids Does Pt have an Active Cancer Diagnosis on the Problem List?: No Quality: Stroke Does the patient have a stroke diagnosis?: No Physical Exam Vital Signs: Vital Signs: Last Vital Signs Temp 98.7 F 04/01/24 11:14 Pulse 73 04/01/24 11:14 Resp 20 04/01/24 11:14 BP 145/77 H 04/01/24 11:14 Pulse Ox 92 04/01/24 11:14 O2 Del Method Nasal Cannula 04/01/24 11:14 O2 Flow Rate 1 04/01/24 11:14 FiO2 30 03/30/24 00:00 Oxygen Flow Rate 11 03/18/24 15:30 BMI result Body Mass Index 31.7 Appearance: awake. cvs: rrr, [id number] . res: air entry fair , no rales or wheezing abd: no rebound or guarding ,nt, bs present. ext pulses present , no cyanosis. neuro: nonfocal. DS: Data Data Completed and Pending Labs on day of discharge: Laboratory Results - last 24 hr 03/31/24 03/31/24 03/31/24 15:22 15:29 20:52 WBC RBC Hgb Hct MCV MCH MCHC RDW Plt Count MPV Immature Gran % (Auto) Neut % (Auto) Lymph % (Auto) Stephen[place] % (Auto) Eos % (Auto) Baso % (Auto) Lymph # (Auto) [place] # (Auto) Eos # (Auto) Baso # (Auto) Abs Immat Gran (auto) Absolute Neuts (auto) Absolute Nucleated RBC Nucleated RBC % (auto) Sodium Potassium Chloride Carbon Dioxide Anion Gap BUN Creatinine Estim Creat Clear Calc Estimated GFR POC Glucose 137 H 133 H 226 H Random Glucose Calcium Phosphorus Magnesium 04/01/24 04/01/24 04/01/24 07:04 08:02 10:59 WBC 9.8 RBC 4.41 L Hgb 12.9 L Hct 44.3 MCV 100.5 H MCH 29.3 MCHC 29.1 L RDW 14.0 Plt Count 218 MPV 10.7 Immature Gran % (Auto) 0.2 Neut % (Auto) 77.9 H Lymph % (Auto) 12.3 L [place] % (Auto) 3.5 Eos % (Auto) 5.6 H Baso % (Auto) 0.5 Lymph # (Auto) 1.2 [place] # (Auto) 0.3 Eos # (Auto) 0.6 H Baso # (Auto) 0.1 Abs Immat Gran (auto) 0.02 Absolute Neuts (auto) 7.6 Absolute Nucleated RBC 0.000 Nucleated RBC % (auto) 0.0 Sodium 144 Potassium 3.8 Chloride 106 Carbon Dioxide 32 H Anion Gap 10 L BUN 14 Creatinine 0.99 Estim Creat Clear Calc 96.2 Estimated GFR > 60 POC Glucose 130 H 200 H Random Glucose 192 H Calcium 8.9 Phosphorus 3.5 Magnesium 2.6 Imaging Chest x-ray: Radiologist's impression: ITS Impressions Chest X-Ray 03/19/24 08:45 IMPRESSION: 1. Developing/worsening nodular opacities right lower lobe, suspect worsening pneumonia. 2. Stable linear segmental opacities at left lower lobe, atelectasis versus pneumonia. 3. Cardiomegaly with vascular congestion in the hilar regions. There may be a mild component of underlying interstitial pulmonary edema. Electronically signed by: Moose Silva MD 03/19/2024 09:12 AM EST RP Chest X-Ray 03/19/24 14:40 IMPRESSION: 1. ET tube and OG tube as detailed. 2. Otherwise no change. No pneumothorax. Electronically signed by: Moose Silva MD 03/19/2024 02:57 PM EST RP Discharge Plan Discharge Anticipated Discharge Date/Time: 04/01/24 11:43 Patient Disposition: Xfer SNF Discharge Diagnosis: Acute hypoxemic respiratory failure due to aspiration pneumonia on top of underlying COPD Referrals: [facility] [Outside] - 1 Day (RESUMPTION OF LTC) Hilario Blank DO [Primary Care Provider] - 1 Week Discharge Medications: New insulin glargine [Lantus U-100 Insulin] 100 unit/mL Solution 15 unit subcut DAILY Qty: 1 0RF insulin lispro [Admelog U-100 Insulin lispro] 100 unit/mL Solution See Protocol subcut QIDACHS Qty: 1 0RF Protocol: Insulin Correction Scale Less than or equal to 110 ---- Give (units): 0 111 to 150 Give (units): 0 151 to 200 Give (units): 2 201 to 250 Give (units): 4 251 to 300 Give (units): 6 301 to 350 Give (units): 8 Greater than 350 Give (units): 10 Call MD if Blood Glucose > : 350 Continued acetaminophen 325 mg Tablet 650 mg PO Q6H PRN (Reason: Fever Or Pain) atorvastatin 10 mg Tablet 10 mg PO BEDTIME fexofenadine 180 mg Tablet 180 mg PO DAILY aspirin 81 mg Tablet,Delayed Release (Dr/Ec) 81 mg PO DAILY bisacodyl 10 mg Suppository 10 mg NC DAILY PRN (Reason: constipation if senna ineffective) Fleet Enema 19-7 gram/118 mL Enema 118 ml NC DAILY PRN (Reason: constipation if bisacodyl supp ineffective) albuterol sulfate 90 mcg/actuation Hfa Aerosol Inhaler 2 puff INHALATION Q6H PRN (Reason: Bronchospasm) Artificial Tears(no-fbty-bolo) 1-0.2-0.2 % Drops 2 drp OPHTHALMIC (EYE) Q8H PRN (Reason: itchy eyes) guaifenesin 200 mg/5 mL Liquid 400 mg PO Q4H PRN (Reason: Congestion) fluticasone furoate-vilanterol [Breo Ellipta] 100-25 mcg/dose Blister With Device 1 inh INHALATION DAILY metformin 500 mg Tablet 500 mg PO BID trazodone 50 mg Tablet 75 mg PO BEDTIME ondansetron HCl 8 mg Tablet 8 mg PO Q6H PRN (Reason: nausea/vomiting) sennosides-docusate sodium [Senna with Docusate Sodium] 8.6-50 mg Tablet 1 tab-cap PO BID lithium carbonate 150 mg Capsule 150 mg PO BID melatonin 3 mg Tablet 9 mg PO BEDTIME propranolol 10 mg Tablet 5 mg PO BID tamsulosin 0.4 mg Capsule 0.4 mg PO BEDTIME lithium carbonate 300 mg Capsule 300 mg PO BID topiramate 50 mg Tablet 50 mg PO BID simethicone 80 mg Tablet 80 mg PO Q6H PRN (Reason: flatulence/bloating) Spiriva Respimat 2.5 mcg/actuation Mist 2 puff INHALATION DAILY Changed lorazepam 1 mg Tablet 1 mg PO BID PRN (Reason: anxiety) Qty: 1 0RF Discontinued Humulin N NPH U-100 Insulin 100 unit/mL Suspension 12 unit SUBCUT BEDTIME Humulin N NPH U-100 Insulin 100 unit/mL Suspension 18 unit SUBCUT DAILY ibuprofen 600 mg Tablet 600 mg PO Q8H PRN (Reason: Pain) Discharge Orders: Discharge Order (Routine); Ordered 04/01/24 Ordered By: Yordy Brandon Diet: Advance to usual diet Activity on Discharge: As tolerated Stand Alone Forms: Patient Portal Discharge page Print Language: Luxembourgish Activity Restrictions/Additional Instructions: dietary recommendations:PER [employer]ICAL [employer]ORATORY TECHNICIAN 03/31, PUREE CONSISTENCY WITH HONEY THICK LIQUIDS. LIBERALIZED DIET FROM DIABETIC TO REGULAR TO PROMOTE INTAKE. ADDING FORTIFIED ICE CREAM (MAGIC CUP) TID TO PROVIDE 870 KCALS, 27 G PROTEIN. RECENT NPO STATUS X 4 DAYS DUE TO TO SWALLOWING CONCERNS. CONTINUE TO FOLLOW FOR DIET TOLERANCE AND NUTRITIONAL NEEDS Topical Wound Care Recommendations: Bilateral Inner Upper and Lower Lip - Provide frequent oral / mouth care. Care Plan Goals: copd excerebation aspirational pneumonia Health Concerns: as above Plan of Treatment: complete augmentin 875mg po bid -please repeat chest imaging in 3-4 weeks to see resolution of pneumonia. discussed with pulm:he is noncomplaint with bipap, we strongly suggest night time bipap use. psych -his lorazepam 1 mg po bid prn for intermittent agitation. moniter respitory closely. Assessment: as above. Patient Instructions: Pneumonia (DC)
[2024-04-01] MEDS: Amoxicillin/Potassium Clav 4,000 MG/50 ML SUSP.RECON 875 MG PO ×2 (13:12→19:28)
[2024-04-01] MEDS: Insulin Lispro 100 UNIT/ML 3 ML VIAL SUBCUT ×3 (13:12→21:37)
--- NOTE | 2024-04-01 13:34 | HO.WOUND ---
Wound Consult: Follow up 63yr old?male admitted to [facility] on 03/15/24 - See progress notes and H&P for detailed history.? Wound consult follow up for wound to lip - device related.? Patient is currently on the Med Tele Unit no longer intubated and is prepping for d/c to SNF later today. Left Upper Maxilla - resurfaced injury - intact tissue at this time. Right Upper Inner Lip - Significant improvement noted - Resolving - remains with small opening thin veil of yellow slough - continue good oral care. Right Lower Inner Lip - Significant improvement noted - Resolving - remains with small opening thin veil of yellow slough - continue good oral care. Provider requested buttock assessment - Intact pink red hyperpigmented blanchable tissue no MASD no Pressure Injury noted - Sacral foam was in place and prevenetive measure were noted. No topical interventions needed at this time - may continue preventative measures. Of note throughout the patients skin he is noted for redness and dry desquamation per direct care nurse secondary to drug reaction - assessment confirms not pressure related. Recommendations: 1. Turn and Reposition every 2 hours and as needed for patient comfort.? Use pillows or wedges to support off loading positions. 2. Off Load all bony prominences with use of pillows and heel boots if needed.? Apply Preventative foams where needed. ? 3. Monitor for incontinence and moisture control, use barrier creams when needed for prevention and treatment. 4. Provide adequate and supplemental nutrition.? 5. Order low air loss mattress. 6. When applicable maintain blood glucose levels per Providers order. 7. Bilateral Inner Upper and Lower Lip - Provide frequent oral care. Re-consult wound care Nurse for wound deterioration or wound changes.
--- NOTE | 2024-04-01 14:45 | P.PNIM_ITS ---
Subjective Subjective Date of Service: 04/01/24 Interval History: copd,asp pneumonitis Review of Systems seems more calmer sats seems fine on 1 liter oxygen no new c/o Physical Exam 2 Vital Signs: Vital Signs: Last Vital Signs Temp 98.7 F 04/01/24 11:14 Pulse 73 04/01/24 11:14 Resp 20 04/01/24 11:14 BP 145/77 H 04/01/24 11:14 Pulse Ox 92 04/01/24 11:14 O2 Del Method Nasal Cannula 04/01/24 11:14 O2 Flow Rate 1 04/01/24 11:14 FiO2 30 03/30/24 00:00 Oxygen Flow Rate 11 03/18/24 15:30 BMI result Body Mass Index 31.7 Appearance: awake. cvs: rrr, [id number] . res: air entry similar ,diminshed at bases abd: no rebound or guarding ,nt, bs present. ext pulses present , no cyanosis. neuro: nonfocal. Objective Data Active Medications Albuterol/Ipratropium (Albuterol/Iprat 2.5/0.5mg 3 Ml Ampul.Neb) 3 ml INHALE RQ6H WHILE AWAKE [facility] Last Admin: 04/01/24 07:55 Dose: 3 ml Documented By: KENZIE Amoxicillin/Clavulanate Potassium (Amoxicillin/Potassium Clav 4,000 Mg/50 Ml Susp.Recon) 875 mg PO BID [facility] Last Admin: 04/01/24 13:12 Dose: 875 mg Documented By: AMMON Aspirin (Aspirin Enteric Coated 81 Mg Tablet.) 81 mg PO DAILY [facility] Last Admin: 04/01/24 10:43 Dose: 81 mg Documented By: AMMON Enoxaparin Sodium (Enoxaparin Sodium 40 Mg/0.4 Ml Syringe) 40 mg SUBCUT Q24H [facility] Last Admin: 04/01/24 10:46 Dose: 40 mg Documented By: AMMON Haloperidol (Haloperidol 1 Mg Tablet) 2 mg PO Q8H PRN PRN Reason: anxiety/restlessness Last Admin: 03/31/24 19:26 Dose: 2 mg Documented By: KEERTHI Insulin Glargine (Insulin Glargine,Hum.Rec.Anlog 100 Unit/Ml 10 Ml Vial) 15 unit SUBCUT DAILY [facility] Last Admin: 04/01/24 10:46 Dose: 15 unit Documented By: AMMON Insulin Human Lispro (Insulin Lispro 100 Unit/Ml 3 Ml Vial) 0 unit SUBCUT QIDACHS [facility]; Protocol Last Admin: 04/01/24 13:12 Dose: 2 unit Documented By: AMMON Lactic Acid (Ammonium Lactate 12 % Cream 140 Gm Tube) 1 appl TOPICAL BID PRN; Protocol PRN Reason: Dry Skin Last Admin: 03/29/24 23:51 Dose: 1 appl Documented By: BEVERLY [place] Carbonate ([place] Carbonate 300 Mg Capsule) 300 mg PO BID [facility] Last Admin: 04/01/24 10:43 Dose: 300 mg Documented By: AMMON [place] Carbonate ([place] Carbonate 300 Mg Tablet) 150 mg PO BID [facility] Last Admin: 04/01/24 10:44 Dose: 150 mg Documented By: AMMON Sodium Chloride (0.9 % Sodium Chloride Flush 3 Ml Syringe) 3 ml IVFLUSH QSHIFT [facility] Last Admin: 04/01/24 10:46 Dose: 3 ml Documented By: AMMON Tamsulosin HCl (Tamsulosin Hcl 0.4 Mg Capsule) 0.4 mg PO BEDTIME [facility] Last Admin: 03/31/24 19:25 Dose: 0.4 mg Documented By: KEERTHI Topiramate (Topiramate 25 Mg Tablet) 50 mg PO BID [facility] Last Admin: 04/01/24 10:43 Dose: 50 mg Documented By: AMMON Labs 04/01/24 08:02 04/01/24 08:02 Labs: Laboratory Results - last 24 hr 03/31/24 03/31/24 03/31/24 15:22 15:29 20:52 MCV MCH MCHC RDW Plt Count MPV Immature Gran % (Auto) Neut % (Auto) Lymph % (Auto) [place] % (Auto) Eos % (Auto) Baso % (Auto) Lymph # (Auto) [place] # (Auto) Eos # (Auto) Baso # (Auto) Abs Immat Gran (auto) Absolute Neuts (auto) Absolute Nucleated RBC Nucleated RBC % (auto) Anion Gap Estim Creat Clear Calc Estimated GFR POC Glucose 137 H 133 H 226 H Random Glucose Calcium Phosphorus Magnesium 04/01/24 04/01/24 04/01/24 07:04 08:02 10:59 MCV 100.5 H MCH 29.3 MCHC 29.1 L RDW 14.0 Plt Count 218 MPV 10.7 Immature Gran % (Auto) 0.2 Neut % (Auto) 77.9 H Lymph % (Auto) 12.3 L [place] % (Auto) 3.5 Eos % (Auto) 5.6 H Baso % (Auto) 0.5 Lymph # (Auto) 1.2 [place] # (Auto) 0.3 Eos # (Auto) 0.6 H Baso # (Auto) 0.1 Abs Immat Gran (auto) 0.02 Absolute Neuts (auto) 7.6 Absolute Nucleated RBC 0.000 Nucleated RBC % (auto) 0.0 Anion Gap 10 L Estim Creat Clear Calc 96.2 Estimated GFR > 60 POC Glucose 130 H 200 H Random Glucose 192 H Calcium 8.9 Phosphorus 3.5 Magnesium 2.6 Assessment and Plan (1) Aspiration into airway: Status: Acute (2) COPD (chronic obstructive pulmonary disease): Status: Acute Plan as per ICU note: 63-year-old gentleman with underlying diabetes mellitus, TBI, seizure disorder, COPD admitted on 03/15/2024 with dyspnea. found to be in hypercarbic respiratory failure, necessitating BiPAP and upgraded to ICU, subsequently downgraded to floor, re-developed hypercarbic respiratory failure and re-upgraded to ICU, intubated on 03/19, extubated on 03/25, maintained in ICU d/t c/f persistent recurrent aspiration. Acute encephalopathy possibly due to significant psych history continue lithium and topiramate . Psychiatry in icu saw patient on 03/26 : advised pcasey Toribio psych follwup noted. diet advanced -seen by speech. Acute hypoxemic respiratory failure due to aspiration pneumonia on top of underlying COPd/? aspirational component : continue nebs ,oxygen ,antibiotics please see goal of care note from icu physician . dm : dm diet fs with sliding scale coverage. Hx seizure post TBI, schizophrenia, mood d/o: on topiramate and lithium dvt prophylax: s/c lovenox. Quality Stroke Does the patient have a stroke diagnosis?: No VTE Prior VTE?: No VTE Risk Level:: Medical - moderate - high VTE Device Contraindication: N/A - Device Ordered VTE Drug Contraindication: N/A - Med Ordered
--- NOTE | 2024-04-01 14:47 | MHC.SL.SWA ---
Speech Pathologist Impression: Risk of Aspiration Due to: Neurological Condition History of Pneumonia Hx of Recent Extubation Reduced Cognition Dysphasia Diet Status: Upon return to [facility], it is recommended patient continue on current diet of PUREE (NDD1) with HONEY THICK liquids, Pills crushed or whole in puree. Patient will continue to need direct supervision at meals, with cuing and interruption of impulsive behaviors and monitoring for aspiration, O2 saturation Liquid Consistency and Strategies for Safe Swallow: Liquid Intake Recommendation: Honey Thick Liquid Intake Strategies: Small Sips No Straws Solid Food Consistency: Dietary Recommendations: Pureed (NDD1) Additional Modifications to Solid Foods: Recommend NDD1 (purees) with HONEY THICK liquids by tsp, pills crushed in puree. Patient demonstrates high level of impulsivity, may try to chug liquids if given cup. Patient will require nasal cannula during meals. Full supervision with direct cuing and intervention is needed if patient becomes impulsive or exhibits clinical signs of aspiration. Oral Medication Intake: Crushed with Puree Please contact the pharmacy regarding appropriate crushable or liquid drug formulations that are available whenever modified delivery is recommended. Compensatory Strategies and Precautions to be Taken for Safe Swallow: Sitting Upright (90 deg) No Straw Liquids from Cup Liquids from Spoon Small Bites and Sips Rate of Ingestion Change Oral Check Supervision While Eating and Drinking for Safe Swallow: Total Supervision (1:1) Foods to Avoid: Mixed consistencies Swallowing Recommended Treatments: Compens. Strategy Educat. Recommendation for Speech: Inpatient Speech Therapy Comment: Patient seen at lunch, with CUT LACE MACHINE OPERATOR present in room supervising patient, however having patient feed self independently. Patient stated that the food was delicious and was scooping mixtures of the purees on his tray with spoon to mouth. Patient was cued to slow rate and reduce the amount in each bite, which at times was heaping. Patient was reactive to cuing ( don't tell me what to do! ) but did take somewhat smaller bites. While eating, patient frequently coughed, with a notably wet and rancorous cough, appeared to swallow after coughing, and continued to eat (did not appear in distress, unclear if coughing was in response to food in airway). Patient also was taking sips of HT liquid from cup (with lid), when cued to take individual sips (patient attempting to chug ), patient again became defensive, warned FILTRATION OPERATOR to stop talking. Chart indicates patient is pending discharge today. Upon return to [facility], it is recommended patient continue on current diet of PUREE (NDD1) with HONEY THICK liquids, Pills crushed or whole in puree. Patient will continue to need direct supervision at meals, with cuing and interruption of impulsive behaviors and monitoring for aspiration, O2 saturation. Given significant risk of aspiration and change from baseline diet, patient would benefit from MBSS study as outpatient to further assess swallow issues, if patient is appropriate and able to tolerate this assessment. Frequency/Duration: M-F while inpatient. Date Range for Service Req: Timeline to reassess: Dump Motorman Clinican/Clinical Fellow: No Supervisory Statement: I have reviewed and agree with the student/clinical fellow's documentation: N/A Speech Language Pathologist: Hali Barrera M.A., CCC-FILTRATION OPERATOR
[2024-04-01 16:16] LABS: Glucose, Whole Blood 163 mg/dL (60-115)
--- NOTE | 2024-04-01 18:42 | PC.NURSE ---
Patient alert and oriented to person, place and situation, knows year but not oriented to month and day, patient on 2L NC, expiratory wheezing, sat's above 92%. Requires frequent redirecting re: O2 which he keeps removing and desat's to low 80 on RA. Patient using male purewick, draining dark yellow urine. Regular diet, pureed, thicken liquids, 1:1 feed, takes pill whole in applesauce. Patient has MDRPI to lips which has been improving. Some redness to buttocks. Patient is cleared to go back to [facility] pending authorization.
[2024-04-01] MEDS: Tamsulosin HCL 0.4 MG CAPSULE PO (19:27)
[2024-04-01 21:30] LABS: Glucose, Whole Blood 201 mg/dL (60-115)
[2024-04-02] VITALS (12 sets, daily range): BP systolic 94–172; BP diastolic 59–84; PULSE 67–90; RESP 13–33; TEMP 36–37.2; O2SAT 91–97
[2024-04-02 07:08] LABS: MANUAL DIFF FLAG NO
[2024-04-02 07:24] LABS: Basophils Percent Auto 0.4 % (0-2); Eosinophils Absolute Auto 0.5 X10*3/uL (0.0-0.4); Eosinophils Percent Auto 5.3 % (0-4); Hematocrit 42.2 % (42.0-52.0); Hemoglobin 12.4 g/dl (14.0-18.0); Imm Gran Abs Auto 0.04 X10*3/uL (0.00-0.03); Imm Gran Pct Auto 0.4 % (0.0-0.4); Lymphocytes Absolute Auto 1.5 X10*3/uL (1.2-4.9); Lymphocytes Percent Auto 15.7 % (20-40); Mean Corpuscular HGB Conc 29.4 g/dl (31.0-36.0); Mean Corpuscular Volume 98.8 fL (80.0-98.0); Mean Platelet Volume 10.7 fL (9.4-12.4); Monocytes Absolute Auto 0.4 X10*3/uL (0.1-1.2); Monocytes Percent Auto 4.3 % (2-11); Neutrophils Percent Auto 73.9 % (45-73); Platelet Count 220 X10*3/uL (160-400); Red Blood Count 4.27 X10*6/uL (4.60-5.80); Red Cell Distribution Width 13.9 % (11.0-16.0); White Blood Count 9.5 X10*3/uL (4.8-10.8)
[2024-04-02 07:39] LABS: Anion Gap 9 (12-20); Blood Urea Nitrogen 13 mg/dL (9-16); Carbon Dioxide 34 mmol/L (22-29); Chloride 104 mmol/L (96-108); Creatinine Clr Calc Pharmacy 125.4; Estimated Glomerular Filt Rate > 60; Glucose Random 161 mg/dL (60-115); Magnesium 2.6 mg/dL (1.6-2.6); Potassium 3.8 mmol/L (3.3-5.1); Sodium 143 mmol/L (135-145)
[2024-04-02] MEDS: Lithium Carbonate 300 MG TABLET 150 MG PO (08:05)
[2024-04-02] MEDS: Topiramate 25 MG TABLET 50 MG PO (08:05)
[2024-04-02] MEDS: Lithium Carbonate 300 MG CAPSULE PO (08:05)
[2024-04-02 08:06] LABS: Glucose, Whole Blood 151 mg/dL (60-115)
[2024-04-02] MEDS: Insulin Glargine,Hum.rec.anlog 100 UNIT/ML 10 ML VIAL 15 UNIT SUBCUT (08:07)
[2024-04-02] MEDS: Enoxaparin Sodium 40 MG/0.4 ML SYRINGE SUBCUT (08:07)
[2024-04-02] MEDS: Aspirin Enteric Coated 81 MG TABLET.DR PO (08:07)
[2024-04-02] MEDS: 0.9 % Sodium Chloride Flush 3 ML SYRINGE IVFLUSH ×3 (08:09→23:30)
--- NOTE | 2024-04-02 10:47 | MHC.CM.PN ---
PER CM OP SPECIAL ED ASSISTANT [facility] MEDICAID AUTH STILL PENDING, ANTIC PT WILL DC BACK TO [facility] ONCE AUTH RECEIVED, CM WILL CONT TO FOLLOW.
[2024-04-02] MEDS: Amoxicillin/Potassium Clav 4,000 MG/50 ML SUSP.RECON 875 MG PO (10:55)
[2024-04-02 11:32] LABS: Glucose, Whole Blood 207 mg/dL (60-115)
--- NOTE | 2024-04-02 13:19 | MHC.CLN ---
F/U DIET=REGULAR, PUREE CONSISTENCY WITH HONEY THICK LIQUIDS. FORTIFIED ICE CREAM (MAGIC CUP) TID TO PROVIDE 870 KCALS, 27 G PROTEIN. MOST RECENT PO INTAKE 75-100%. NO PRESSURE INJURY TO COCCYX. CONTINUE TO FOLLOW FOR DIET TOLERANCE AND PO INTAKE.
--- NOTE | 2024-04-02 14:46 | P.PNIM_ITS ---
Subjective Subjective Date of Service: 04/02/24 Interval History: copd Review of Systems no new changes Physical Exam 2 Vital Signs: Vital Signs: Last Vital Signs Temp 98.0 F 04/02/24 08:00 Pulse 72 04/02/24 08:00 Resp 18 04/02/24 08:00 BP 129/68 04/02/24 08:00 Pulse Ox 97 04/02/24 08:00 O2 Del Method Nasal Cannula 04/02/24 08:00 O2 Flow Rate 3 04/02/24 08:00 FiO2 30 03/30/24 00:00 Oxygen Flow Rate 11 03/18/24 15:30 BMI result Body Mass Index 31.7 Appearance: awake. cvs: rrr, [id number] . res: air entry similar ,diminshed at bases abd: no rebound or guarding ,nt, bs present. ext pulses present , no cyanosis. neuro: nonfocal. Objective Data Active Medications Albuterol/Ipratropium (Albuterol/Iprat 2.5/0.5mg 3 Ml Ampul.Neb) 3 ml INHALE RQ6H WHILE AWAKE [facility] Last Admin: 04/02/24 13:49 Dose: Not Given Documented By: KHADAR Non-Admin Reason: pt refused, becomes agitated Amoxicillin/Clavulanate Potassium (Amoxicillin/Potassium Clav 4,000 Mg/50 Ml Susp.Recon) 875 mg PO BID [facility] Last Admin: 04/02/24 10:55 Dose: 875 mg Documented By: BRIGHT Aspirin (Aspirin Enteric Coated 81 Mg Tablet.) 81 mg PO DAILY [facility] Last Admin: 04/02/24 08:07 Dose: 81 mg Documented By: BRIGHT Enoxaparin Sodium (Enoxaparin Sodium 40 Mg/0.4 Ml Syringe) 40 mg SUBCUT Q24H [facility] Last Admin: 04/02/24 08:07 Dose: 40 mg Documented By: BRIGHT Haloperidol (Haloperidol 1 Mg Tablet) 2 mg PO Q8H PRN PRN Reason: anxiety/restlessness Last Admin: 03/31/24 19:26 Dose: 2 mg Documented By: KEERTHI Insulin Glargine (Insulin Glargine,Hum.Rec.Anlog 100 Unit/Ml 10 Ml Vial) 15 unit SUBCUT DAILY [facility] Last Admin: 04/02/24 08:07 Dose: 15 unit Documented By: BRIGHT Insulin Human Lispro (Insulin Lispro 100 Unit/Ml 3 Ml Vial) 0 unit SUBCUT QIDACHS [facility]; Protocol Last Admin: 04/02/24 08:24 Dose: Not Given Documented By: BRIGHT Non-Admin Reason: Physician Approved Lactic Acid (Ammonium Lactate 12 % Cream 140 Gm Tube) 1 appl TOPICAL BID PRN; Protocol PRN Reason: Dry Skin Last Admin: 03/29/24 23:51 Dose: 1 appl Documented By: BEVERLY [place] Carbonate ([place] Carbonate 300 Mg Capsule) 300 mg PO BID [facility] Last Admin: 04/02/24 08:05 Dose: 300 mg Documented By: BRIGHT [place] Carbonate ([place] Carbonate 300 Mg Tablet) 150 mg PO BID [facility] Last Admin: 04/02/24 08:05 Dose: 150 mg Documented By: BRIGHT Sodium Chloride (0.9 % Sodium Chloride Flush 3 Ml Syringe) 3 ml IVFLUSH QSHIFT [facility] Last Admin: 04/02/24 08:09 Dose: 3 ml Documented By: BRIGHT Tamsulosin HCl (Tamsulosin Hcl 0.4 Mg Capsule) 0.4 mg PO BEDTIME [facility] Last Admin: 04/01/24 19:27 Dose: 0.4 mg Documented By: ADRIANA Topiramate (Topiramate 25 Mg Tablet) 50 mg PO BID [facility] Last Admin: 04/02/24 08:05 Dose: 50 mg Documented By: BRIGHT Labs 04/02/24 06:53 04/02/24 06:53 Labs: Laboratory Results - last 24 hr 04/01/24 04/01/24 04/02/24 16:12 21:25 06:53 MCV 98.8 H MCH 29.0 MCHC 29.4 L RDW 13.9 Plt Count 220 MPV 10.7 Immature Gran % (Auto) 0.4 Neut % (Auto) 73.9 H Lymph % (Auto) 15.7 L [place] % (Auto) 4.3 Eos % (Auto) 5.3 H Baso % (Auto) 0.4 Lymph # (Auto) 1.5 [place] # (Auto) 0.4 Eos # (Auto) 0.5 H Baso # (Auto) 0.0 Abs Immat Gran (auto) 0.04 H Absolute Neuts (auto) 7.0 Absolute Nucleated RBC 0.000 Nucleated RBC % (auto) 0.0 Anion Gap 9 L Estim Creat Clear Calc 125.4 Estimated GFR > 60 POC Glucose 163 H 201 H Random Glucose 161 H Calcium 9.0 Phosphorus 3.0 Magnesium 2.6 04/02/24 04/02/24 08:03 11:23 MCV MCH MCHC RDW Plt Count MPV Immature Gran % (Auto) Neut % (Auto) Lymph % (Auto) [place] % (Auto) Eos % (Auto) Baso % (Auto) Lymph # (Auto) [place] # (Auto) Eos # (Auto) Baso # (Auto) Abs Immat Gran (auto) Absolute Neuts (auto) Absolute Nucleated RBC Nucleated RBC % (auto) Anion Gap Estim Creat Clear Calc Estimated GFR POC Glucose 151 H 207 H Random Glucose Calcium Phosphorus Magnesium Assessment and Plan (1) Aspiration into airway: Status: Acute Assessment and Plan: 63-year-old gentleman with underlying diabetes mellitus, TBI, seizure disorder, COPD admitted on 03/15/2024 with dyspnea. found to be in hypercarbic respiratory failure, necessitating BiPAP and upgraded to ICU, subsequently downgraded to floor, re-developed hypercarbic respiratory failure and re-upgraded to ICU, intubated on 03/19, extubated on 03/25, maintained in ICU d/t c/f persistent recurrent aspiration. Acute encephalopathy possibly due to significant psych history continue lithium and topiramate . Psychiatry in icu saw patient on 03/26 : advised pcasey Toribio psych follwup noted. diet advanced -seen by speech. Acute hypoxemic respiratory failure due to aspiration pneumonia on top of underlying COPd/? aspirational component : continue nebs ,oxygen ,antibiotics please see goal of care note from icu physician . dm : dm diet fs with sliding scale coverage. Hx seizure post TBI, schizophrenia, mood d/o: on topiramate and lithium dvt prophylax: s/c lovenox. Quality Stroke Does the patient have a stroke diagnosis?: No VTE Prior VTE?: No VTE Risk Level:: Medical - moderate - high VTE Device Contraindication: N/A - Device Ordered VTE Drug Contraindication: N/A - Med Ordered
[2024-04-02] MEDS: Insulin Lispro 100 UNIT/ML 3 ML VIAL SUBCUT ×3 (14:52→22:36)
[2024-04-02 16:30] LABS: Glucose, Whole Blood 226 mg/dL (60-115)
[2024-04-02 19:09] LABS: Glucose, Whole Blood 176 mg/dL (60-115)
[2024-04-02] MEDS: Albuterol/Iprat 2.5/0.5MG 3 ML AMPUL.NEB INHALE (19:35)
[2024-04-02 19:50] LABS: ABG Base Excess 10.2 mmol/L; ABG HCO3 39 mmol/L (22-26); ABG pCO2 74 mmHg (32-45); ABG pH 7.33 (7.35-7.45); ABG pO2 72 mmHg (83-108)
[2024-04-02 20:11] LABS: Hematocrit 44.1 % (42.0-52.0); Mean Corpuscular HGB Conc 29.5 g/dl (31.0-36.0); Mean Corpuscular Hemoglobin 29.4 pg (27.0-33.0); Mean Corpuscular Volume 99.8 fL (80.0-98.0); Mean Platelet Volume 10.8 fL (9.4-12.4); Platelet Count 229 X10*3/uL (160-400); Red Blood Count 4.42 X10*6/uL (4.60-5.80); Red Cell Distribution Width 13.9 % (11.0-16.0); White Blood Count 12.1 X10*3/uL (4.8-10.8)
[2024-04-02 20:22] LABS: Anion Gap 8 (12-20); Blood Urea Nitrogen 13 mg/dL (9-16); Calcium 9.6 mg/dL (8.4-10.2); Carbon Dioxide 36 mmol/L (22-29); Chloride 102 mmol/L (96-108); Creatinine Clr Calc Pharmacy 123.7; Estimated Glomerular Filt Rate > 60; Glucose Random 209 mg/dL (60-115); Potassium 4.3 mmol/L (3.3-5.1); Sodium 142 mmol/L (135-145)
[2024-04-02 20:29] LABS: Troponin-I High Sensitivity 4.9 ng/L (<3.5-35.0)
[2024-04-02 21:13] LABS: B Type Natriuretic Peptide 53 pg/mL (<100)
[2024-04-02 22:06] LABS: ABG Base Excess 10.5 mmol/L; ABG HCO3 40 mmol/L (22-26); ABG pCO2 78 mmHg (32-45); ABG pH 7.31 (7.35-7.45); ABG pO2 47 mmHg (83-108)
[2024-04-02 22:30] LABS: Glucose, Whole Blood 225 mg/dL (60-115)
--- NOTE | 2024-04-02 22:33 | PM.EVENT ---
Event Note Date of Service: 04/02/24 Event Note: At the beginning of the shift, the patient was placed on BiPAP for hypoxia, with oxygen saturation dropping into the 70s and increasing lethargy per RN report. An ABG was obtained, revealing CO? retention of 74. The patient was easily arousable to verbal stimuli, so BiPAP was continued. However, a repeat ABG showed worsening CO? retention, prompting transfer back to the ICU for closer monitoring, with intubation as the next step if needed. This was discussed with Dr. Cunha. Time Spent With Patient Time: Total time managing care of this patient today ____ minutes.
[2024-04-02 23:19] LABS: ABG Refer to POC result
[2024-04-02 23:20] LABS: ABG Refer to POC result
[2024-04-02] MEDS: dexmedeTOMIDidine HCL/NS 400 MCG/100 ML INFUS..BTL 27.23 MCG IVCONT (23:30)
--- NOTE | 2024-04-02 23:32 | PM.EVENT ---
Documented by User: Marylu Garcia NP 04/02/24 23:35 Event Note Date of Service: 04/02/24 Event Note: Patient arrived on the unit oriented to person and place. Answering questions appropriately. Cooperative. BiPAP in place. Patient's sister Tran provided with an update. No change to code status. Time Spent With Patient Time: Total time managing care of this patient today ____ minutes. Documented by User: Jyothi Cunha MD 04/03/24 07:53 Event Note Date of Service: 04/03/24
[2024-04-03] VITALS (25 sets, daily range): BP systolic 89–155; BP diastolic 47–84; PULSE 52–87; RESP 11–30; TEMP 36.1–37.1; O2SAT 88–94
[2024-04-03] MEDS: dexmedeTOMIDidine HCL/NS 400 MCG/100 ML INFUS..BTL 16.34 MCG IVCONT (03:17)
[2024-04-03 05:18] LABS: VBG Base Excess 10.3 mmol/L; VBG HCO3 38 mmol/L (22-26); VBG pCO2 67 mmHg; VBG pH 7.36 (7.32-7.43); VBG pO2 51 mmHg
[2024-04-03 05:45] LABS: Venous Blood Gas Refer to POC result
[2024-04-03 05:49] LABS: Basophils Percent Auto 0.3 % (0-2); Eosinophils Absolute Auto 0.4 X10*3/uL (0.0-0.4); Eosinophils Percent Auto 4.8 % (0-4); Hematocrit 42.7 % (42.0-52.0); Hemoglobin 12.3 g/dl (14.0-18.0); Imm Gran Abs Auto 0.04 X10*3/uL (0.00-0.03); Imm Gran Pct Auto 0.4 % (0.0-0.4); Lymphocytes Absolute Auto 1.7 X10*3/uL (1.2-4.9); Lymphocytes Percent Auto 19.2 % (20-40); MANUAL DIFF FLAG NO; Mean Corpuscular HGB Conc 28.8 g/dl (31.0-36.0); Mean Corpuscular Hemoglobin 28.7 pg (27.0-33.0); Mean Corpuscular Volume 99.8 fL (80.0-98.0); Mean Platelet Volume 11.1 fL (9.4-12.4); Monocytes Absolute Auto 0.3 X10*3/uL (0.1-1.2); Monocytes Percent Auto 3.8 % (2-11); Neutrophils Absolute Auto 6.5 x10*3/uL (2.0-8.3); Neutrophils Percent Auto 71.5 % (45-73); Platelet Count 221 X10*3/uL (160-400); Red Blood Count 4.28 X10*6/uL (4.60-5.80)
[2024-04-03 06:05] LABS: Albumin Level 3.1 g/dL (3.5-5.0); Anion Gap 11 (12-20); Blood Urea Nitrogen 17 mg/dL (9-16); Calcium 9.6 mg/dL (8.4-10.2); Carbon Dioxide 32 mmol/L (22-29); Chloride 104 mmol/L (96-108); Creatinine Clr Calc Pharmacy 119.1; Estimated Glomerular Filt Rate > 60; Glucose Random 179 mg/dL (60-115); Magnesium 2.6 mg/dL (1.6-2.6); Phosphorus 3.2 mg/dL (2.7-4.5); Potassium 4.3 mmol/L (3.3-5.1); Sodium 143 mmol/L (135-145)
--- NOTE | 2024-04-03 06:31 | PC.NURSE ---
Patient at beginning of shift was on 4LNC desatted to 70s, back up to 80s and sustaining. Patient lethargic but arousable to voice. Vitals taken and charted, blood sugar taken for 225. Patient placed on bipap. MD notified. ABG ordered and obtained. Chest x-ray ordered and obtained. Patient transferred to ICU approximately 22:00.
[2024-04-03] MEDS: Albuterol/Iprat 2.5/0.5MG 3 ML AMPUL.NEB INHALE ×2 (07:41→19:57)
--- NOTE | 2024-04-03 07:53 | PC.NURSE ---
Patient remained on Bipap until 354 when he ripped the mask off of his face and said I'm all done with this. Patient was encouraged to allow staff to place him back on bipap and he refused. Patient was place on 1LNC, and intermittently would remove the cannula. Patient encouraged by multiple staff members to try the bipap and he continued to decline. Marylu Garcia, ILANA aware and at bedside multiple times.
[2024-04-03 08:16] LABS: Glucose, Whole Blood 154 mg/dL (60-115)
--- NOTE | 2024-04-03 08:30 | P.PNCC_ITS ---
Subjective Subjective Date of Service: 04/03/24 Interval History: re-admitted ICU d/t recurrent hypercarbic respiratory failure, placed on BiPAP, improved Critical Care Time (minutes): 60 Physical Exam 2 Vital Signs: Vital Signs: Last Vital Signs Temp 97.0 F 04/03/24 08:00 Pulse 65 04/03/24 08:00 Resp 16 04/03/24 08:00 BP 125/72 04/03/24 08:00 Pulse Ox 91 L 04/03/24 08:00 O2 Del Method Nasal Cannula 04/03/24 08:00 O2 Flow Rate 1 04/03/24 08:00 FiO2 22 04/03/24 03:42 Oxygen Flow Rate 11 03/18/24 15:30 BMI result Body Mass Index 30.0 Const: Other: of note, uncooperative with physical exam General: healthy appearing, comfortable, no acute distress, well developed, alert, awake and Physically active Orientation/consciousness: oriented to person HEENT: Head: Yes normal to inspection, Yes No palpable skull fracture present, Yes normocephalic and Yes atraumatic Eyes: General: appearance normal, both eyes and all related structures Neck: Neck: Yes normal visual inspection, Yes full ROM and Yes supple Chest: Chest palpation & inspection: normal inspection of the chest Resp: Effort & Inspection: normal respiratory effort, able to speak in complete sentences and no respiratory distress GI: Inspection: Yes normal to inspection Skin: General skin exam: no rashes or lesions noted Neuro: General: oriented to person, tone normal, moves all extremities and no focal motor deficits Extrem: General: Yes normal to inspection and Yes full ROM Psych: Other: appreciable agitation, intermittently verbally re-directable Objective Data Labs 04/03/24 05:06 04/03/24 05:06 Labs: Laboratory Results - last 24 hr 04/02/24 04/02/24 04/02/24 11:23 16:26 19:05 WBC RBC Hgb Hct MCV MCH MCHC RDW Plt Count MPV Immature Gran % (Auto) Neut % (Auto) Lymph % (Auto) [place] % (Auto) Eos % (Auto) Baso % (Auto) Lymph # (Auto) [place] # (Auto) Eos # (Auto) Baso # (Auto) Abs Immat Gran (auto) Absolute Neuts (auto) Absolute Nucleated RBC Nucleated RBC % (auto) O2 Saturation ABG pH at Pt Temp ABG pCO2 at Pt Temp ABG pO2 at Pt Temp ABG HCO3 ABG Base Excess (Actual) VBG pH VBG pCO2 VBG pO2 VBG HCO3 VBG O2 Saturation VBG Base Excess Sodium Potassium Chloride Carbon Dioxide Anion Gap BUN Creatinine Estim Creat Clear Calc Estimated GFR POC Glucose 207 H 226 H 176 H Random Glucose Calcium Phosphorus Magnesium Troponin I High Sens B-Natriuretic Peptide Albumin 04/02/24 04/02/24 04/02/24 19:45 19:55 22:02 WBC 12.1 H RBC 4.42 L Hgb 13.0 L Hct 44.1 MCV 99.8 H MCH 29.4 MCHC 29.5 L RDW 13.9 Plt Count 229 MPV 10.8 Immature Gran % (Auto) Neut % (Auto) Lymph % (Auto) [place] % (Auto) Eos % (Auto) Baso % (Auto) Lymph # (Auto) [place] # (Auto) Eos # (Auto) Baso # (Auto) Abs Immat Gran (auto) Absolute Neuts (auto) Absolute Nucleated RBC 0.000 Nucleated RBC % (auto) 0.0 O2 Saturation 94.0 73.0 ABG pH at Pt Temp 7.33 L 7.31 L ABG pCO2 at Pt Temp 74 H* 78 H* ABG pO2 at Pt Temp 72 L 47 L* ABG HCO3 39 H 40 H ABG Base Excess (Actual) 10.2 10.5 VBG pH VBG pCO2 VBG pO2 VBG HCO3 VBG O2 Saturation VBG Base Excess Sodium 142 Potassium 4.3 Chloride 102 Carbon Dioxide 36 H Anion Gap 8 L BUN 13 Creatinine 0.77 Estim Creat Clear Calc 123.7 Estimated GFR > 60 POC Glucose Random Glucose 209 H Calcium 9.6 D Phosphorus Magnesium Troponin I High Sens 4.9 D B-Natriuretic Peptide 53 Albumin 04/02/24 04/03/24 04/03/24 22:26 05:06 05:13 WBC 9.0 RBC 4.28 L Hgb 12.3 L Hct 42.7 MCV 99.8 H MCH 28.7 MCHC 28.8 L RDW 14.0 Plt Count 221 MPV 11.1 Immature Gran % (Auto) 0.4 Neut % (Auto) 71.5 Lymph % (Auto) 19.2 L [place] % (Auto) 3.8 Eos % (Auto) 4.8 H Baso % (Auto) 0.3 Lymph # (Auto) 1.7 [place] # (Auto) 0.3 Eos # (Auto) 0.4 Baso # (Auto) 0.0 Abs Immat Gran (auto) 0.04 H Absolute Neuts (auto) 6.5 Absolute Nucleated RBC 0.000 Nucleated RBC % (auto) 0.0 O2 Saturation ABG pH at Pt Temp ABG pCO2 at Pt Temp ABG pO2 at Pt Temp ABG HCO3 ABG Base Excess (Actual) VBG pH 7.36 VBG pCO2 67 VBG pO2 51 VBG HCO3 38 H VBG O2 Saturation 80.0 VBG Base Excess 10.3 Sodium 143 Potassium 4.3 Chloride 104 Carbon Dioxide 32 H Anion Gap 11 L BUN 17 H Creatinine 0.78 Estim Creat Clear Calc 119.1 Estimated GFR > 60 POC Glucose 225 H Random Glucose 179 H Calcium 9.6 Phosphorus 3.2 Magnesium 2.6 Troponin I High Sens B-Natriuretic Peptide Albumin 3.1 L 04/03/24 08:00 WBC RBC Hgb Hct MCV MCH MCHC RDW Plt Count MPV Immature Gran % (Auto) Neut % (Auto) Lymph % (Auto) [place] % (Auto) Eos % (Auto) Baso % (Auto) Lymph # (Auto) [place] # (Auto) Eos # (Auto) Baso # (Auto) Abs Immat Gran (auto) Absolute Neuts (auto) Absolute Nucleated RBC Nucleated RBC % (auto) O2 Saturation ABG pH at Pt Temp ABG pCO2 at Pt Temp ABG pO2 at Pt Temp ABG HCO3 ABG Base Excess (Actual) VBG pH VBG pCO2 VBG pO2 VBG HCO3 VBG O2 Saturation VBG Base Excess Sodium Potassium Chloride Carbon Dioxide Anion Gap BUN Creatinine Estim Creat Clear Calc Estimated GFR POC Glucose 154 H Random Glucose Calcium Phosphorus Magnesium Troponin I High Sens B-Natriuretic Peptide Albumin Microbiology Microbiology Results: Microbiology 03/24/24 14:50 Sputum - Suctioned Gram Stain - Final 03/24/24 14:50 Sputum - Suctioned Sputum Culture - Final Esthela dubliniensis 03/14/24 17:45 Blood - Venous Blood Culture - Final No growth after 5 days. 03/14/24 17:45 Blood - Venous Blood Culture - Final No growth after 5 days. Progress Note: A&P Assessment and plan (1) Respiratory failure with hypoxia and hypercapnia: Status: Acute (2) COPD (chronic obstructive pulmonary disease): Status: Acute (3) Aspiration into airway: Status: Acute (4) TBI (traumatic brain injury): Status: Acute Plan Patient is a 63 Y M w/ diabetes mellitus, TBI c/b epilepsy, COPD presenting initially to emergency department on 03/15 w/ dyspea, found to be in hypercarbic respiratory failure, necessitating BiPAP and upgraded to ICU, subsequently downgraded to floor, re-developed hypercarbic respiratory failure and re- upgraded to ICU, intubated on 03/19, extubated on 03/25, maintained in ICU d/t c/f persistent recurrent aspiration N: alert, though oriented to person only CV: no acute issues R: acute on chronic mixed respiratory failure, likely multi-factorial, d/t COPD, recurrent aspiration; BiPAP for naps, PM, and as needed GI: NPO while on BiPAP; otherwise modified diet : no acute issues; to closely monitor renal indices, electrolytes H: no acute issues ID: no overt stigmata of infection; to closely monitor E: diabetes mellitus; insulin regimen S: ongoing [id number] discussions, specifically re: intubation Quality Stroke Does the patient have a stroke diagnosis?: No VTE Prior VTE?: No VTE Risk Level:: Medical - moderate - high VTE Device Contraindication: N/A - Device Ordered VTE Drug Contraindication: N/A - Med Ordered
[2024-04-03] MEDS: 0.9 % Sodium Chloride Flush 3 ML SYRINGE IVFLUSH ×3 (09:28→20:47)
[2024-04-03] MEDS: Enoxaparin Sodium 40 MG/0.4 ML SYRINGE SUBCUT (09:47)
[2024-04-03] MEDS: Insulin Lispro 100 UNIT/ML 3 ML VIAL SUBCUT ×4 (09:47→20:13)
[2024-04-03] MEDS: Topiramate 25 MG TABLET 50 MG PO ×2 (09:58→20:15)
[2024-04-03] MEDS: Lithium Carbonate 300 MG CAPSULE PO ×2 (09:58→20:15)
[2024-04-03] MEDS: Lithium Carbonate 300 MG TABLET 150 MG PO ×2 (09:58→20:15)
[2024-04-03] MEDS: Aspirin Enteric Coated 81 MG TABLET.DR PO (09:59)
[2024-04-03] MEDS: Insulin Glargine,Hum.rec.anlog 100 UNIT/ML 10 ML VIAL 15 UNIT SUBCUT (09:59)
--- NOTE | 2024-04-03 10:56 | MHC.SL.SWA ---
Speech Pathologist Impression: Moderate pharyngeal dysphagia characterized by delay in timing, weakness Risk of Aspiration Due to: Neurological Condition History of Pneumonia Hx of Recent Extubation Reduced Cognition Dysphasia Diet Status: Upon return to [facility], it is recommended patient continue on current diet of PUREE (NDD1) with HONEY THICK liquids, Pills crushed or whole in puree. Patient will continue to need direct supervision at meals, with cuing and interruption of impulsive behaviors and monitoring for aspiration, O2 saturation Liquid Consistency and Strategies for Safe Swallow: Liquid Intake Recommendation: Honey Thick Liquid Intake Strategies: Small Sips No Straws Solid Food Consistency: Dietary Recommendations: Pureed (NDD1) Additional Modifications to Solid Foods: Recommend NDD1 (purees) with HONEY THICK liquids by tsp, pills crushed in puree. Patient demonstrates high level of impulsivity, may try to chug liquids if given cup. Patient will require nasal cannula during meals AND frequent breaks on 02 mask due to rapid desaturation noted off oxygen. Supervision of these elements with assistance as needed is required for meals at this time. Oral Medication Intake: Crushed with Puree Please contact the pharmacy regarding appropriate crushable or liquid drug formulations that are available whenever modified delivery is recommended. Compensatory Strategies and Precautions to be Taken for Safe Swallow: Sitting Upright (90 deg) No Straw Liquids from Cup Liquids from Spoon Small Bites and Sips Rate of Ingestion Change Oral Check Supervision While Eating and Drinking for Safe Swallow: Total Supervision (1:1) Foods to Avoid: Mixed consistencies Swallowing Recommended Treatments: Compens. Strategy Educat. Recommendation for Speech: Inpatient Speech Therapy Comment: Pt seen in ICU, improved oral phase of swallow observed with purees and HTL by tsp or cup sips. Pt fed himself, needs consistent reminders to slow his pace, take small bites. Notably more attentive today, speaking at length. RN consulted, notified via secure [place] Text, recc NDD1 with HTL, aspiration precautions, 1:1 supervision, cueing for safety. BIOLOGICAL SCIENCE TECHNICIAN continues to follow. Frequency/Duration: M-F while inpatient. Date Range for Service Req: Timeline to reassess: Senior Examiner Clinican/Clinical Fellow: No Supervisory Statement: I have reviewed and agree with the student/clinical fellow's documentation: N/A Speech Language Pathologist: Marybeth Phan M.S., CCC-BIOLOGICAL SCIENCE TECHNICIAN
[2024-04-03 11:39] LABS: Glucose, Whole Blood 267 mg/dL (60-115)
[2024-04-03 15:54] LABS: Glucose, Whole Blood 202 mg/dL (60-115)
[2024-04-03] MEDS: LORazepam 2 MG/ML VIAL 1 MG IVPUSH (17:02)
--- NOTE | 2024-04-03 19:00 | PC.NURSE ---
Late Entry: assumed care of patient 04/03/24 at 0700. patient in no acute distress at initial assessment, see shift assessment. medications given per MAR patient resistive to care on multiple occasions, most pertinent issue being refusal bipap for sleep. requires frequent deescalation and reorientation. Sitter at the bedside, continuous camera monitoring in place.
[2024-04-03 20:04] LABS: Glucose, Whole Blood 220 mg/dL (60-115)
[2024-04-03] MEDS: Tamsulosin HCL 0.4 MG CAPSULE PO (20:15)
[2024-04-03] MEDS: Atorvastatin Calcium 10 MG TABLET PO (20:15)
[2024-04-03] MEDS: Amoxicillin/Potassium Clav 4,000 MG/50 ML SUSP.RECON 875 MG PO (20:46)
[2024-04-03 21:18] LABS: Glucose, Whole Blood 259 mg/dL (60-115)
[2024-04-04] VITALS (26 sets, daily range): BP systolic 99–158; BP diastolic 44–85; PULSE 67–90; RESP 13–29; TEMP 36–37.1; O2SAT 88–99
[2024-04-04 04:39] LABS: VBG HCO3 40 mmol/L (22-26); VBG pCO2 65 mmHg; VBG pO2 35 mmHg
[2024-04-04 04:57] LABS: MANUAL DIFF FLAG NO
[2024-04-04 05:01] LABS: Basophils Percent Auto 0.4 % (0-2); Eosinophils Absolute Auto 0.4 X10*3/uL (0.0-0.4); Hematocrit 40.8 % (42.0-52.0); Hemoglobin 12.6 g/dl (14.0-18.0); Imm Gran Abs Auto 0.04 X10*3/uL (0.00-0.03); Imm Gran Pct Auto 0.4 % (0.0-0.4); Lymphocytes Absolute Auto 1.9 X10*3/uL (1.2-4.9); Lymphocytes Percent Auto 17.1 % (20-40); Mean Corpuscular HGB Conc 30.9 g/dl (31.0-36.0); Mean Corpuscular Hemoglobin 29.4 pg (27.0-33.0); Mean Corpuscular Volume 95.3 fL (80.0-98.0); Mean Platelet Volume 10.9 fL (9.4-12.4); Monocytes Absolute Auto 0.4 X10*3/uL (0.1-1.2); Neutrophils Absolute Auto 8.2 x10*3/uL (2.0-8.3); Neutrophils Percent Auto 74.1 % (45-73); Platelet Count 223 X10*3/uL (160-400); Red Blood Count 4.28 X10*6/uL (4.60-5.80); Red Cell Distribution Width 13.9 % (11.0-16.0); White Blood Count 11.1 X10*3/uL (4.8-10.8)
[2024-04-04 05:13] LABS: Albumin Level 3.3 g/dL (3.5-5.0); Anion Gap 11 (12-20); Blood Urea Nitrogen 18 mg/dL (9-16); Calcium 9.7 mg/dL (8.4-10.2); Carbon Dioxide 35 mmol/L (22-29); Chloride 100 mmol/L (96-108); Creatinine Clr Calc Pharmacy 123.9; Estimated Glomerular Filt Rate > 60; Glucose Random 184 mg/dL (60-115); Magnesium 2.3 mg/dL (1.6-2.6); Phosphorus 2.8 mg/dL (2.7-4.5); Potassium 4.1 mmol/L (3.3-5.1); Sodium 142 mmol/L (135-145)
[2024-04-04 05:17] LABS: Venous Blood Gas Refer to POC result
[2024-04-04 07:20] LABS: Glucose, Whole Blood 176 mg/dL (60-115)
[2024-04-04] MEDS: Albuterol/Iprat 2.5/0.5MG 3 ML AMPUL.NEB INHALE ×2 (07:57→19:19)
[2024-04-04] MEDS: 0.9 % Sodium Chloride Flush 3 ML SYRINGE IVFLUSH ×3 (08:24→21:59)
[2024-04-04] MEDS: Insulin Lispro 100 UNIT/ML 3 ML VIAL SUBCUT ×4 (08:25→21:00)
[2024-04-04] MEDS: Lithium Carbonate 300 MG TABLET 150 MG PO ×2 (08:26→21:47)
[2024-04-04] MEDS: Insulin Glargine,Hum.rec.anlog 100 UNIT/ML 10 ML VIAL 15 UNIT SUBCUT (08:26)
[2024-04-04] MEDS: Lithium Carbonate 300 MG CAPSULE PO ×2 (08:26→21:47)
[2024-04-04] MEDS: Topiramate 25 MG TABLET 50 MG PO ×2 (08:28→21:47)
[2024-04-04] MEDS: Aspirin Enteric Coated 81 MG TABLET.DR PO (08:28)
[2024-04-04] MEDS: Amoxicillin/Potassium Clav 4,000 MG/50 ML SUSP.RECON 875 MG PO ×2 (08:31→21:47)
[2024-04-04] MEDS: Enoxaparin Sodium 40 MG/0.4 ML SYRINGE SUBCUT (08:32)
--- NOTE | 2024-04-04 09:52 | PM.CCPN ---
Subjective Subjective Date of Service: 04/04/24 Interval History: non-compliant w/ BiPAP overnight Critical Care Time (minutes): 0 Physical Exam Vital Signs: Vital Signs: Last Vital Signs Temp 98.7 F 04/04/24 08:00 Pulse 69 04/04/24 09:00 Resp 22 H 04/04/24 09:00 BP 146/71 H 04/04/24 09:00 Pulse Ox 90 L 04/04/24 09:00 O2 Del Method Nasal Cannula 04/04/24 09:00 O2 Flow Rate 1 04/04/24 09:00 FiO2 22 04/03/24 03:42 Oxygen Flow Rate 11 03/18/24 15:30 BMI result Body Mass Index 30.0 Const: Other: fatigued, though arousable w/ verbal stimulus General: no acute distress and well developed Orientation/consciousness: oriented to person HEENT: Head: Yes normal to inspection, Yes normocephalic and Yes atraumatic Eyes: General: appearance normal, both eyes and all related structures Neck: Neck: Yes normal visual inspection, Yes full ROM, Yes no meningeal signs, Yes trachea midline and Yes supple Chest: Chest palpation & inspection: normal inspection of the chest Resp: Other: diminished breath sounds throughout; no overt rales, rhonchi, wheezing Effort & Inspection: normal respiratory effort Cardio: Rate: regular rate Rhythm: regular rhythm GI: Inspection: Yes normal to inspection, No Abdominal wall edema and No distended Palpation (GI): Soft to palpation, not firm, nontender, no guarding and not rigid Skin: General skin exam: no rashes or lesions noted Neuro: General: oriented to person, tone normal, moves all extremities, no meningeal signs and no focal motor deficits Extrem: General: Yes normal to inspection, Yes full ROM, Yes capillary refill normal and Yes no clubbing, cyanosis or edema Psych: Other: appreciable intermittent agitation Appearance: grossly normal Objective Data Labs 04/04/24 04:31 04/04/24 04:31 Labs: Laboratory Results - last 24 hr 04/03/24 04/03/24 04/03/24 11:32 15:49 19:58 WBC RBC Hgb Hct MCV MCH MCHC RDW Plt Count MPV Immature Gran % (Auto) Neut % (Auto) Lymph % (Auto) [place] % (Auto) Eos % (Auto) Baso % (Auto) Lymph # (Auto) [place] # (Auto) Eos # (Auto) Baso # (Auto) Abs Immat Gran (auto) Absolute Neuts (auto) Absolute Nucleated RBC Nucleated RBC % (auto) VBG pH VBG pCO2 VBG pO2 VBG HCO3 VBG O2 Saturation VBG Base Excess Sodium Potassium Chloride Carbon Dioxide Anion Gap BUN Creatinine Estim Creat Clear Calc Estimated GFR POC Glucose 267 H 202 H 220 H Random Glucose Calcium Phosphorus Magnesium Albumin 04/03/24 04/04/24 04/04/24 21:15 04:31 04:33 WBC 11.1 H RBC 4.28 L Hgb 12.6 L Hct 40.8 L MCV 95.3 MCH 29.4 MCHC 30.9 L RDW 13.9 Plt Count 223 MPV 10.9 Immature Gran % (Auto) 0.4 Neut % (Auto) 74.1 H Lymph % (Auto) 17.1 L [place] % (Auto) 4.0 Eos % (Auto) 4.0 Baso % (Auto) 0.4 Lymph # (Auto) 1.9 [place] # (Auto) 0.4 Eos # (Auto) 0.4 Baso # (Auto) 0.0 Abs Immat Gran (auto) 0.04 H Absolute Neuts (auto) 8.2 Absolute Nucleated RBC 0.000 Nucleated RBC % (auto) 0.0 VBG pH 7.40 VBG pCO2 65 VBG pO2 35 VBG HCO3 40 H VBG O2 Saturation 52.0 VBG Base Excess 13.0 Sodium 142 Potassium 4.1 Chloride 100 Carbon Dioxide 35 H Anion Gap 11 L BUN 18 H Creatinine 0.75 Estim Creat Clear Calc 123.9 Estimated GFR > 60 POC Glucose 259 H Random Glucose 184 H Calcium 9.7 Phosphorus 2.8 Magnesium 2.3 Albumin 3.3 L 04/04/24 07:17 WBC RBC Hgb Hct MCV MCH MCHC RDW Plt Count MPV Immature Gran % (Auto) Neut % (Auto) Lymph % (Auto) [place] % (Auto) Eos % (Auto) Baso % (Auto) Lymph # (Auto) [place] # (Auto) Eos # (Auto) Baso # (Auto) Abs Immat Gran (auto) Absolute Neuts (auto) Absolute Nucleated RBC Nucleated RBC % (auto) VBG pH VBG pCO2 VBG pO2 VBG HCO3 VBG O2 Saturation VBG Base Excess Sodium Potassium Chloride Carbon Dioxide Anion Gap BUN Creatinine Estim Creat Clear Calc Estimated GFR POC Glucose 176 H Random Glucose Calcium Phosphorus Magnesium Albumin Microbiology Microbiology Results: Microbiology 03/24/24 14:50 Sputum - Suctioned Gram Stain - Final 03/24/24 14:50 Sputum - Suctioned Sputum Culture - Final Esthela dubliniensis 03/14/24 17:45 Blood - Venous Blood Culture - Final No growth after 5 days. 03/14/24 17:45 Blood - Venous Blood Culture - Final No growth after 5 days. Progress Note: A&P Assessment and plan (1) Acute exacerbation of chronic obstructive pulmonary disease (COPD): Status: Acute (2) Respiratory failure with hypoxia and hypercapnia: Status: Acute (3) Aspiration into airway: Status: Acute Plan Patient is a 63 Y M w/ diabetes mellitus, TBI c/b epilepsy, COPD presenting initially to emergency department on 03/15 w/ dyspea, found to be in hypercarbic respiratory failure, necessitating BiPAP and upgraded to ICU, subsequently downgraded to floor, re-developed hypercarbic respiratory failure and re-upgraded to ICU, intubated on 03/19, extubated on 03/25, maintained in ICU d/t c/f persistent recurrent aspiration N: alert, though oriented to person only CV: no acute issues R: acute on chronic mixed respiratory failure, likely multi-factorial, d/t COPD, recurrent aspiration; BiPAP for naps and PM, though non-compliant GI: aspiration; modified diet : no acute issues; to closely monitor renal indices, electrolytes H: no acute issues ID: no overt stigmata of infection; to closely monitor E: diabetes mellitus; insulin regimen S: ongoing [id number] discussions w/ sister/healthcare proxy Quality Stroke Does the patient have a stroke diagnosis?: No VTE Prior VTE?: No VTE Risk Level:: Medical - moderate - high VTE Device Contraindication: N/A - Device Ordered VTE Drug Contraindication: N/A - Med Ordered
[2024-04-04 11:38] LABS: Glucose, Whole Blood 280 mg/dL (60-115)
--- NOTE | 2024-04-04 15:10 | PC.NURSE ---
Addendum entered by Yusef Oakes RN 04/04/24 15:11: patient threw water across room, threatens violence frequently. Original Note: assumed care of patient 04/04/24 at 0700. patient in no acute distress at initial assessment, see shift assessment. medications given per MAR patient resistive to care on multiple occasions, most pertinent issue being refusal of bipap for sleep. requires frequent deescalation and reorientation. , continuous camera monitoring in place.
[2024-04-04 16:15] LABS: Glucose, Whole Blood 222 mg/dL (60-115)
[2024-04-04 20:39] LABS: Glucose, Whole Blood 229 mg/dL (60-115)
[2024-04-04] MEDS: Tamsulosin HCL 0.4 MG CAPSULE PO (21:47)
[2024-04-04] MEDS: Atorvastatin Calcium 10 MG TABLET PO (21:47)
[2024-04-05] VITALS (18 sets, daily range): BP systolic 89–145; BP diastolic 55–92; PULSE 68–95; RESP 12–26; TEMP 36.1–36.6; O2SAT 83–97
[2024-04-05 04:20] LABS: VBG Base Excess 11.5 mmol/L; VBG HCO3 38 mmol/L (22-26); VBG pCO2 61 mmHg; VBG pO2 40 mmHg
[2024-04-05 05:06] LABS: MANUAL DIFF FLAG NO
[2024-04-05 05:14] LABS: Basophils Absolute Auto 0.1 X10*3/uL (0.0-0.2); Basophils Percent Auto 0.6 % (0-2); Eosinophils Absolute Auto 0.5 X10*3/uL (0.0-0.4); Eosinophils Percent Auto 5.2 % (0-4); Imm Gran Abs Auto 0.04 X10*3/uL (0.00-0.03); Imm Gran Pct Auto 0.5 % (0.0-0.4); Lymphocytes Absolute Auto 1.9 X10*3/uL (1.2-4.9); Lymphocytes Percent Auto 21.8 % (20-40); Mean Corpuscular Hemoglobin 29.5 pg (27.0-33.0); Mean Corpuscular Volume 95.2 fL (80.0-98.0); Mean Platelet Volume 11.1 fL (9.4-12.4); Monocytes Absolute Auto 0.5 X10*3/uL (0.1-1.2); Monocytes Percent Auto 5.6 % (2-11); Neutrophils Absolute Auto 5.7 x10*3/uL (2.0-8.3); Neutrophils Percent Auto 66.3 % (45-73); Platelet Count 227 X10*3/uL (160-400); Red Blood Count 4.41 X10*6/uL (4.60-5.80); Red Cell Distribution Width 14.2 % (11.0-16.0); White Blood Count 8.6 X10*3/uL (4.8-10.8)
[2024-04-05 05:29] LABS: Albumin Level 3.3 g/dL (3.5-5.0); Anion Gap 12 (12-20); Blood Urea Nitrogen 17 mg/dL (9-16); Calcium 9.8 mg/dL (8.4-10.2); Carbon Dioxide 34 mmol/L (22-29); Chloride 100 mmol/L (96-108); Creatinine Clr Calc Pharmacy 116.1; Estimated Glomerular Filt Rate > 60; Glucose Random 200 mg/dL (60-115); Magnesium 2.4 mg/dL (1.6-2.6); Phosphorus 3.4 mg/dL (2.7-4.5); Potassium 4.4 mmol/L (3.3-5.1); Sodium 142 mmol/L (135-145)
--- NOTE | 2024-04-05 07:14 | PC.NURSE ---
Assumed care of the patient at 1900. Patient intermittently taking off nasal cannula, educated on benefits of keeping oxygen on and encouraged to wear the Bipap. Patient declined Bipap at 2130. Patient again asked by the RN and Respiratory therapist to utilize?bipap overnight, the patient refused. At 0300, the patient is?refusing to allow a blood pressure cuff and oxygen sensor probe to be placed, making threatening statements to staff. After a short nap the patient became more engaging and cooperative.
[2024-04-05 07:20] LABS: Glucose, Whole Blood 221 mg/dL (60-115)
[2024-04-05] MEDS: Insulin Lispro 100 UNIT/ML 3 ML VIAL SUBCUT ×4 (07:45→21:38)
[2024-04-05] MEDS: Insulin Glargine,Hum.rec.anlog 100 UNIT/ML 10 ML VIAL 15 UNIT SUBCUT (07:45)
[2024-04-05] MEDS: 0.9 % Sodium Chloride Flush 3 ML SYRINGE IVFLUSH ×3 (07:46→21:38)
[2024-04-05 08:30] LABS: Venous Blood Gas Refer to POC result
[2024-04-05] MEDS: Topiramate 25 MG TABLET 50 MG PO ×2 (09:34→21:37)
[2024-04-05] MEDS: Lithium Carbonate 300 MG TABLET 150 MG PO ×2 (09:34→21:37)
[2024-04-05] MEDS: Aspirin Enteric Coated 81 MG TABLET.DR PO (09:34)
[2024-04-05] MEDS: Lithium Carbonate 300 MG CAPSULE PO ×2 (09:35→21:37)
[2024-04-05] MEDS: Enoxaparin Sodium 40 MG/0.4 ML SYRINGE SUBCUT (09:36)
[2024-04-05] MEDS: Amoxicillin/Potassium Clav 4,000 MG/50 ML SUSP.RECON 875 MG PO (10:36)
--- NOTE | 2024-04-05 10:58 | MHC.CLN ---
F/U PO INTAKE VARIABLE CONSUMING 25/100/25/100% CONSECUTIVELY DIET RX:PUREE CONSISTENCY WITH HONEY THICK LIQUIDS PT RECEIVING FORTIFIED ICE CREAM (MAGIC CUP) TID PROVIDES 870 KCALS, 27 G PROTEIN CONTINUE TO MONITOR PO INTAKE AND ENCOURAGE SUPPLEMENTS RD TO FOLLOW WEEKLY
--- NOTE | 2024-04-05 11:36 | P.PNCC_ITS ---
Subjective Subjective Date of Service: 04/05/24 Interval History: 63-year-old gentleman with underlying diabetes mellitus, TBI, seizure disorder, COPD admitted on 03/15/2024 with dyspnea. Patient initially noted to be in respiratory acidosis that improved with application of BiPAP. Patient was titrated to nasal cannula, however he started to retain CO2 again and was admitted to intensive care unit for close monitoring. His respiratory viral panel was negative. CT angio chest showed evidence of pulmonary emboli, but some pulmonary edema. He was treated with diuretic with improvement in his blood gases and downgraded to telemetry [place]. Patient continued with intermittent CO2 retention and noncompliance with nocturnal BiPAP therapy resulting worsening CO2 retention requiring daytime BiPAP application. However, patient was not compliant with daytime BiPAP requiring intubation and ventilatory support on 03/19/2024, extubated on 03/25/2024, downgraded to telemetry to [id number]. However, patient continued with suboptimal compliant with nocturnal BiPAP resulting in recurrence of hypercapnic respiratory failure requiring transfer to intensive care unit and re-initiation of daytime BiPAP support on 04/03/2024, now titrated off daytime BiPAP. May also have a component of aspiration. No events overnight. Critical Care Time (minutes): 0 Physical Exam 2 Vital Signs: Vital Signs: Last Vital Signs Temp 97.2 F 04/05/24 08:00 Pulse 82 04/05/24 10:00 Resp 26 H 04/05/24 10:00 BP 122/61 04/05/24 10:00 Pulse Ox 83 L 04/05/24 10:00 O2 Del Method Room Air 04/05/24 10:00 O2 Flow Rate 1 04/05/24 08:00 FiO2 22 04/03/24 03:42 Oxygen Flow Rate 11 03/18/24 15:30 BMI result Body Mass Index 30.0 Const: General: no acute distress, alert and awake Nutritional Appearance: obese Eyes: Sclerae: sclerae normal EOM: EOMs intact bilaterally Neck: Neck: Yes no lymphadenopathy, Yes trachea midline and Yes supple Resp: Effort & Inspection: normal respiratory effort and no respiratory distress Auscultation: clear to auscultation bilaterally Cardio: Rate: regular rate Rhythm: regular rhythm Heart sounds: no gallops, no murmurs and no rubs GI: Palpation (GI): Soft to palpation and Other GI palpation findings present ( Nontender) Auscultation: normal bowel sounds Extrem: General: No clubbing, No cyanosis and Yes edema (Trace bilateral) Objective Data Labs 04/05/24 04:13 04/05/24 04:13 Labs: Laboratory Results - last 24 hr 04/04/24 04/04/24 04/04/24 11:34 16:03 20:32 WBC RBC Hgb Hct MCV MCH MCHC RDW Plt Count MPV Immature Gran % (Auto) Neut % (Auto) Lymph % (Auto) [place] % (Auto) Eos % (Auto) Baso % (Auto) Lymph # (Auto) [place] # (Auto) Eos # (Auto) Baso # (Auto) Abs Immat Gran (auto) Absolute Neuts (auto) Absolute Nucleated RBC Nucleated RBC % (auto) VBG pH VBG pCO2 VBG pO2 VBG HCO3 VBG O2 Saturation VBG Base Excess Sodium Potassium Chloride Carbon Dioxide Anion Gap BUN Creatinine Estim Creat Clear Calc Estimated GFR POC Glucose 280 H 222 H 229 H Random Glucose Calcium Phosphorus Magnesium Albumin 04/05/24 04/05/24 04/05/24 04:13 04:17 07:14 WBC 8.6 RBC 4.41 L Hgb 13.0 L Hct 42.0 MCV 95.2 MCH 29.5 MCHC 31.0 RDW 14.2 Plt Count 227 MPV 11.1 Immature Gran % (Auto) 0.5 H Neut % (Auto) 66.3 Lymph % (Auto) 21.8 [place] % (Auto) 5.6 Eos % (Auto) 5.2 H Baso % (Auto) 0.6 Lymph # (Auto) 1.9 [place] # (Auto) 0.5 Eos # (Auto) 0.5 H Baso # (Auto) 0.1 Abs Immat Gran (auto) 0.04 H Absolute Neuts (auto) 5.7 Absolute Nucleated RBC 0.000 Nucleated RBC % (auto) 0.0 VBG pH 7.40 VBG pCO2 61 VBG pO2 40 VBG HCO3 38 H VBG O2 Saturation 63.0 VBG Base Excess 11.5 Sodium 142 Potassium 4.4 Chloride 100 Carbon Dioxide 34 H Anion Gap 12 BUN 17 H Creatinine 0.80 Estim Creat Clear Calc 116.1 Estimated GFR > 60 POC Glucose 221 H Random Glucose 200 H Calcium 9.8 Phosphorus 3.4 Magnesium 2.4 Albumin 3.3 L Microbiology Microbiology Results: Microbiology 03/24/24 14:50 Sputum - Suctioned Gram Stain - Final 03/24/24 14:50 Sputum - Suctioned Sputum Culture - Final Sethela dubliniensis 03/14/24 17:45 Blood - Venous Blood Culture - Final No growth after 5 days. 03/14/24 17:45 Blood - Venous Blood Culture - Final No growth after 5 days. Progress Note: A&P Assessment and plan (1) TBI (traumatic brain injury): Status: Acute (2) Respiratory failure with hypoxia and hypercapnia: Status: Acute (3) COPD (chronic obstructive pulmonary disease): Status: Acute (4) Aspiration into airway: Status: Acute Plan Assessment: 63-year-old gentleman with acute on chronic hypercapnic respiratory failure requiring ventilatory support, extubated 03/25/2024, however with poor compliance with BiPAP support requiring readmission to ICU on 04/03 for daytime BiPAP support, now titrated off daytime BiPAP support Plan: Neuro: No acute issues. Underlying TBI. Continue lithium and topiramate. Cardiac: No acute issues. Pulmonary: Acute recurrent hypercapnic respiratory failure titrated off daytime BiPAP. Continue nocturnal BiPAP. Underlying COPD with CO2 retention. Continue with supplemental oxygen with O2 saturation goal of 89-92%. Recurrent pulmonary aspirations, continues on modified diet. Renal: No acute issues. Endo: No acute issues. Underlying diabetes mellitus more continue subcutaneous insulin. GI: No acute issues. ID: No acute issues. Heme/Onc: No acute issues. Psych: No acute issues. Miscellaneous: No acute issues. Prophylaxis: Heparin, famotidine Diet: Diabetic Quality Stroke Does the patient have a stroke diagnosis?: No VTE Prior VTE?: No VTE Risk Level:: Medical - moderate - high VTE Device Contraindication: N/A - Device Ordered VTE Drug Contraindication: N/A - Med Ordered
[2024-04-05 11:39] LABS: Glucose, Whole Blood 208 mg/dL (60-115)
[2024-04-05] MEDS: Albuterol/Iprat 2.5/0.5MG 3 ML AMPUL.NEB INHALE (13:32)
--- NOTE | 2024-04-05 14:08 | MHC.CM.PN ---
Pt continues care in ICU: BiPAP at [facility]: pt is alert and verbal: d/c plan is for a return to [facility] w/payor debi once he is medicall stable. Clinical updates sent to facility. CM to follow
--- NOTE | 2024-04-05 14:39 | MHC.SL.SWA ---
Speech Pathologist Impression: Mild to moderate oral and moderate pharyngeal dysphagia persists, impulsivity results in reduced efficiency of pharyngeal closure and clearance, no changes to diet at this time, HOME AID continues to follow closely Risk of Aspiration Due to: Neurological Condition History of Pneumonia Hx of Recent Extubation Reduced Cognition Dysphasia Diet Status: Upon return to [facility], it is recommended patient continue on current diet of PUREE (NDD1) with HONEY THICK liquids, Pills crushed or whole in puree. Patient will continue to need direct supervision at meals, with cuing and interruption of impulsive behaviors and monitoring for aspiration, O2 saturation Liquid Consistency and Strategies for Safe Swallow: Liquid Intake Recommendation: Honey Thick Liquid Intake Strategies: Small Sips Solid Food Consistency: Dietary Recommendations: Pureed (NDD1) Additional Modifications to Solid Foods: Recommend NDD1 (purees) with HONEY THICK liquids by tsp, pills crushed in puree. Patient demonstrates high level of impulsivity, may try to chug liquids if given cup. Patient will require nasal cannula during meals AND frequent breaks on 02 mask due to rapid desaturation noted off oxygen. Supervision of these elements with assistance as needed is required for meals at this time. Oral Medication Intake: Crushed with Puree Please contact the pharmacy regarding appropriate crushable or liquid drug formulations that are available whenever modified delivery is recommended. Compensatory Strategies and Precautions to be Taken for Safe Swallow: Sitting Upright (90 deg) Small Bites and Sips Rate of Ingestion Change Supervision While Eating and Drinking for Safe Swallow: Total Supervision (1:1) Foods to Avoid: Mixed consistencies Swallowing Recommended Treatments: Compens. Strategy Educat. Recommendation for Speech: Inpatient Speech Therapy Comment: Patient seen in ICU, RN consulted. Pt requesting regular food. Pt tolerated HTL by cup sips with good results, no overt s/s of aspiration, no O2 desaturation. Pt trialed with NTL, similar good results, though pt was more impulsive and took consecutive sips without pausing. HOME AID explained, in simple terms, reason for downgraded diet. Pt expressed his disagreement. RN reported pt being transferred to med floor. HOME AID will continue to follow. Pt needs direct supervision at meals, with cuing and interruption of impulsive behaviors and monitoring for aspiration, O2 saturation. Frequency/Duration: M-F while inpatient. Date Range for Service Req: Timeline to reassess: Metal Wire Technician Clinican/Clinical Fellow: No Supervisory Statement: I have reviewed and agree with the student/clinical fellow's documentation: N/A Speech Language Pathologist: Marybeth Phan M.S., [facility]-HOME [facility]
--- NOTE | 2024-04-05 15:24 | HO.WOUND ---
Wound Consult: Follow up 63yr old?male admitted to [facility] on 03/15/24 - See progress notes and H&P for detailed history.? Wound consult follow up for wound to lip - device related.? Patient is currently in the ICU - awake and conversing. Left Upper Maxilla - resurfaced - intact tissue at this time. Right Upper Inner Lip - Resolved - continue protection / preventions and good oral care. Right Lower Inner Lip - Resolved - continue protection / preventions and good oral care. Resurfaced no topical interventions needed at side from protection prevention and oral mouth care per protocol. Recommendations: 1. Turn and Reposition every 2 hours and as needed for patient comfort.? Use pillows or wedges to support off loading positions. 2. Off Load all bony prominences with use of pillows and heel boots if needed.? Apply Preventative foams where needed. ? 3. Monitor for incontinence and moisture control, use barrier creams when needed for prevention and treatment. 4. Provide adequate and supplemental nutrition.? 5. Order low air loss mattress. 6. When applicable maintain blood glucose levels per Providers order. 7. Bilateral Inner Upper and Lower Lip - Provide frequent oral care. Re-consult wound care Nurse for wound deterioration or wound changes.
[2024-04-05 16:32] LABS: Glucose, Whole Blood 323 mg/dL (60-115)
--- NOTE | 2024-04-05 19:56 | PM.EVENT ---
Event Note Date of Service: 04/06/24 Event Note: patient seen and examined seems improvins sats above 97% physical exam and asssessment and plan as per icu note. Time Spent With Patient Time: Total time managing care of this patient today ____ minutes.
[2024-04-05 20:55] LABS: Glucose, Whole Blood 173 mg/dL (60-115)
[2024-04-05] MEDS: HaloperidoL 1 MG TABLET 2 MG PO (21:37)
[2024-04-05] MEDS: Atorvastatin Calcium 10 MG TABLET PO (21:37)
[2024-04-05] MEDS: Tamsulosin HCL 0.4 MG CAPSULE PO (21:37)
[2024-04-06] VITALS (10 sets, daily range): BP systolic 117–136; BP diastolic 61–84; PULSE 72–95; RESP 18–22; TEMP 36.6–37.4; O2SAT 88–95
[2024-04-06] MEDS: Haloperidol Lactate 5 MG/ML VIAL 2.5 MG IVPUSH (02:53)
[2024-04-06 07:04] LABS: MANUAL DIFF FLAG NO
[2024-04-06 07:06] LABS: Basophils Percent Auto 0.4 % (0-2); Eosinophils Absolute Auto 0.4 X10*3/uL (0.0-0.4); Eosinophils Percent Auto 5.3 % (0-4); Hematocrit 41.7 % (42.0-52.0); Hemoglobin 12.8 g/dl (14.0-18.0); Imm Gran Abs Auto 0.04 X10*3/uL (0.00-0.03); Imm Gran Pct Auto 0.5 % (0.0-0.4); Lymphocytes Absolute Auto 1.6 X10*3/uL (1.2-4.9); Lymphocytes Percent Auto 18.6 % (20-40); Mean Corpuscular HGB Conc 30.7 g/dl (31.0-36.0); Mean Corpuscular Hemoglobin 29.4 pg (27.0-33.0); Mean Corpuscular Volume 95.6 fL (80.0-98.0); Mean Platelet Volume 10.8 fL (9.4-12.4); Monocytes Absolute Auto 0.6 X10*3/uL (0.1-1.2); Monocytes Percent Auto 6.6 % (2-11); Neutrophils Absolute Auto 5.7 x10*3/uL (2.0-8.3); Neutrophils Percent Auto 68.6 % (45-73); Platelet Count 201 X10*3/uL (160-400); Red Blood Count 4.36 X10*6/uL (4.60-5.80); Red Cell Distribution Width 14.2 % (11.0-16.0); White Blood Count 8.3 X10*3/uL (4.8-10.8)
[2024-04-06 07:09] LABS: VBG Base Excess 9.6 mmol/L; VBG HCO3 37 mmol/L (22-26); VBG pCO2 62 mmHg; VBG pH 7.38 (7.32-7.43); VBG pO2 57 mmHg
[2024-04-06 07:13] LABS: Venous Blood Gas Refer to POC result
[2024-04-06 07:22] LABS: Albumin Level 3.2 g/dL (3.5-5.0); Anion Gap 11 (12-20); Blood Urea Nitrogen 14 mg/dL (9-16); Calcium 9.3 mg/dL (8.4-10.2); Carbon Dioxide 32 mmol/L (22-29); Chloride 98 mmol/L (96-108); Estimated Glomerular Filt Rate > 60; Glucose Random 205 mg/dL (60-115); Magnesium 2.3 mg/dL (1.6-2.6); Phosphorus 3.9 mg/dL (2.7-4.5); Potassium 4.2 mmol/L (3.3-5.1); Sodium 137 mmol/L (135-145)
[2024-04-06 07:28] LABS: Glucose, Whole Blood 192 mg/dL (60-115)
--- NOTE | 2024-04-06 08:40 | HO.PM.IMPN ---
Subjective Subjective Date of Service: 04/06/24 Interval History: copd Review of Systems sob seems improving sats also improving Physical Exam Vital Signs: Vital Signs: Last Vital Signs Temp 98.0 F 04/06/24 07:27 Pulse 85 04/06/24 07:27 Resp 18 04/06/24 07:27 BP 117/75 04/06/24 07:27 Pulse Ox 88 L 04/06/24 07:35 O2 Del Method Nasal Cannula 04/06/24 07:35 O2 Flow Rate 0.5 04/06/24 07:35 FiO2 22 04/03/24 03:42 Oxygen Flow Rate 11 03/18/24 15:30 BMI result Body Mass Index 30.0 Appearance: awake. cvs: rrr, [id number] . res: air entry similar as yesterday(please see icu note) abd: no rebound or guarding ,nt, bs present. ext pulses present , no cyanosis. neuro: nonfocal. Objective Data Active Medications Albuterol/Ipratropium (Albuterol/Iprat 2.5/0.5mg 3 Ml Ampul.Neb) 3 ml INHALE RQ6H WHILE AWAKE [facility] Last Admin: 04/06/24 08:09 Dose: Not Given Documented By: BARNEY Non-Admin Reason: Patient Refused Aspirin (Aspirin Enteric Coated 81 Mg Tablet.) 81 mg PO DAILY [facility] Last Admin: 04/05/24 09:34 Dose: 81 mg Documented By: ELVIN Atorvastatin Calcium (Atorvastatin Calcium 10 Mg Tablet) 10 mg PO BEDTIME [facility] Last Admin: 04/05/24 21:37 Dose: 10 mg Documented By: MARKUS Enoxaparin Sodium (Enoxaparin Sodium 40 Mg/0.4 Ml Syringe) 40 mg SUBCUT Q24H [facility] Last Admin: 04/05/24 09:36 Dose: 40 mg Documented By: ELVIN Haloperidol (Haloperidol 1 Mg Tablet) 2 mg PO Q8H PRN PRN Reason: anxiety/restlessness Last Admin: 04/05/24 21:37 Dose: 2 mg Documented By: MARKUS Haloperidol Lactate (Haloperidol Lactate 5 Mg/Ml Vial) 2.5 mg IVPUSH Q4H PRN PRN Reason: Agitation Last Admin: 04/06/24 02:53 Dose: 2.5 mg Documented By: MARKUS Insulin Glargine (Insulin Glargine,Hum.Rec.Anlog 100 Unit/Ml 10 Ml Vial) 15 unit SUBCUT DAILY [facility] Last Admin: 04/05/24 07:45 Dose: 15 unit Documented By: ELVIN Insulin Human Lispro (Insulin Lispro 100 Unit/Ml 3 Ml Vial) 0 unit SUBCUT QIDACHS [facility]; Protocol Last Admin: 04/05/24 21:38 Dose: 2 unit Documented By: MARKUS Lactic Acid (Ammonium Lactate 12 % Cream 140 Gm Tube) 1 appl TOPICAL BID PRN; Protocol PRN Reason: Dry Skin Last Admin: 03/29/24 23:51 Dose: 1 appl Documented By: BEVERLY [place] Carbonate ([place] Carbonate 300 Mg Capsule) 300 mg PO BID [facility] Last Admin: 04/05/24 21:37 Dose: 300 mg Documented By: MARKUS [place] Carbonate ([place] Carbonate 300 Mg Tablet) 150 mg PO BID [facility] Last Admin: 04/05/24 21:37 Dose: 150 mg Documented By: MARKUS Lorazepam (Lorazepam 2 Mg/Ml Vial) 1 mg IVPUSH Q4H PRN PRN Reason: Agitation Last Admin: 04/03/24 17:02 Dose: 1 mg Documented By: CECILIO Sodium Chloride (0.9 % Sodium Chloride Flush 3 Ml Syringe) 3 ml IVFLUSH QSHIFT [facility] Last Admin: 04/05/24 21:38 Dose: 3 ml Documented By: MARKUS Tamsulosin HCl (Tamsulosin Hcl 0.4 Mg Capsule) 0.4 mg PO BEDTIME [facility] Last Admin: 04/05/24 21:37 Dose: 0.4 mg Documented By: MARKUS Topiramate (Topiramate 25 Mg Tablet) 50 mg PO BID [facility] Last Admin: 04/05/24 21:37 Dose: 50 mg Documented By: MARKUS Labs 04/06/24 06:59 04/06/24 06:59 Labs: Laboratory Results - last 24 hr 04/05/24 04/05/24 04/05/24 11:34 16:28 20:47 MCV MCH MCHC RDW Plt Count MPV Immature Gran % (Auto) Neut % (Auto) Lymph % (Auto) [place] % (Auto) Eos % (Auto) Baso % (Auto) Lymph # (Auto) [place] # (Auto) Eos # (Auto) Baso # (Auto) Abs Immat Gran (auto) Absolute Neuts (auto) Absolute Nucleated RBC Nucleated RBC % (auto) VBG pH VBG pCO2 VBG pO2 VBG HCO3 VBG O2 Saturation VBG Base Excess Anion Gap Estim Creat Clear Calc Estimated GFR POC Glucose 208 H 323 H 173 H Random Glucose Calcium Phosphorus Magnesium Albumin 04/06/24 04/06/24 04/06/24 06:59 07:05 07:22 MCV 95.6 MCH 29.4 MCHC 30.7 L RDW 14.2 Plt Count 201 MPV 10.8 Immature Gran % (Auto) 0.5 H Neut % (Auto) 68.6 Lymph % (Auto) 18.6 L [place] % (Auto) 6.6 Eos % (Auto) 5.3 H Baso % (Auto) 0.4 Lymph # (Auto) 1.6 [place] # (Auto) 0.6 Eos # (Auto) 0.4 Baso # (Auto) 0.0 Abs Immat Gran (auto) 0.04 H Absolute Neuts (auto) 5.7 Absolute Nucleated RBC 0.000 Nucleated RBC % (auto) 0.0 VBG pH 7.38 VBG pCO2 62 VBG pO2 57 VBG HCO3 37 H VBG O2 Saturation 86.0 VBG Base Excess 9.6 Anion Gap 11 L Estim Creat Clear Calc 129.0 Estimated GFR > 60 POC Glucose 192 H Random Glucose 205 H Calcium 9.3 Phosphorus 3.9 Magnesium 2.3 Albumin 3.2 L Assessment and Plan (1) Aspiration into airway: Status: Acute Assessment and Plan: 63-year-old gentleman with acute on chronic hypercapnic respiratory failure requiring ventilatory support, extubated 03/25/2024, however with poor compliance with BiPAP support requiring readmission to ICU on 04/03 for daytime BiPAP support, now titrated off daytime BiPAP support. acute on chronic hypercapnic respiratory failure secto copd continue nebs ,bipap,wean oxygen( goal sats -no greater than 90%, preferably 89-90%) aspirtion precaution -diet as modified(pureed/honey thick). dm : dm diet moniter fs ,continue insulin Hx seizure post TBI, schizophrenia, mood d/o: on topiramate and lithium ,also on prn halodol dvt porphylax: s/c lovenox Quality Stroke Does the patient have a stroke diagnosis?: No VTE Prior VTE?: No VTE Risk Level:: Medical - moderate - high VTE Device Contraindication: N/A - Device Ordered VTE Drug Contraindication: N/A - Med Ordered
[2024-04-06] MEDS: Enoxaparin Sodium 40 MG/0.4 ML SYRINGE SUBCUT (09:05)
[2024-04-06] MEDS: Insulin Glargine,Hum.rec.anlog 100 UNIT/ML 10 ML VIAL 15 UNIT SUBCUT (09:05)
[2024-04-06] MEDS: Insulin Lispro 100 UNIT/ML 3 ML VIAL SUBCUT ×2 (09:05→16:58)
[2024-04-06] MEDS: Lithium Carbonate 300 MG CAPSULE PO ×2 (09:05→19:39)
[2024-04-06] MEDS: Aspirin Enteric Coated 81 MG TABLET.DR PO (09:05)
[2024-04-06] MEDS: Topiramate 25 MG TABLET 50 MG PO ×2 (09:06→19:38)
[2024-04-06] MEDS: 0.9 % Sodium Chloride Flush 3 ML SYRINGE IVFLUSH ×3 (09:06→19:39)
[2024-04-06] MEDS: HaloperidoL 1 MG TABLET 2 MG PO ×2 (09:06→19:38)
[2024-04-06] MEDS: Lithium Carbonate 300 MG TABLET 150 MG PO ×2 (09:06→19:38)
--- NOTE | 2024-04-06 11:29 | MHC.SLORD ---
Addendum entered and electronically signed by Lianne Ramirez MA, CCC-ROUTE DELIVERY MANAGER 04/06/24 15:56: Checked in with RN. Per RN, patient has not been coughing with his meals. ROUTE DELIVERY MANAGER to f/u tomorrow. Original Note: Addendum entered and electronically signed by Lianne Ramirez MA, CCC-ROUTE DELIVERY MANAGER 04/06/24 15:05: ROUTE DELIVERY MANAGER attempted again to see patient for dysphagia treatment. Patient was sleeping with open mouth posture. He awoke to sternal rub, still drowsy, refusing all PO offered to him. MD and RN were notified. Original Note: Speech Language Pathology Order Status: ROUTE DELIVERY MANAGER offered several different foods to patient, which patient declined, stating that he wants to wait for lunch. ROUTE DELIVERY MANAGER to return at lunch time if schedule allows.
[2024-04-06 16:20] LABS: Glucose, Whole Blood 230 mg/dL (60-115)
[2024-04-06] MEDS: Tamsulosin HCL 0.4 MG CAPSULE PO (19:38)
[2024-04-06] MEDS: Atorvastatin Calcium 10 MG TABLET PO (19:38)
[2024-04-06 21:09] LABS: Glucose, Whole Blood 265 mg/dL (60-115)
[2024-04-07 03:46] VITALS: BP 137/60; PULSE 82; RESP 18; TEMP 36.4; O2SAT 92
[2024-04-07 07:24] LABS: Glucose, Whole Blood 279 mg/dL (60-115)
[2024-04-07 07:34] VITALS: BP 140/90; PULSE 80; RESP 18; TEMP 36.6; O2SAT 92
[2024-04-07] MEDS: Insulin Lispro 100 UNIT/ML 3 ML VIAL SUBCUT ×3 (09:14→22:00)
[2024-04-07] MEDS: Enoxaparin Sodium 40 MG/0.4 ML SYRINGE SUBCUT (09:14)
[2024-04-07] MEDS: Insulin Glargine,Hum.rec.anlog 100 UNIT/ML 10 ML VIAL 15 UNIT SUBCUT (09:14)
[2024-04-07] MEDS: 0.9 % Sodium Chloride Flush 3 ML SYRINGE IVFLUSH ×2 (09:15→22:00)
[2024-04-07] MEDS: HaloperidoL 1 MG TABLET 2 MG PO (09:16)
[2024-04-07] MEDS: Lithium Carbonate 300 MG TABLET 150 MG PO ×2 (09:16→21:59)
[2024-04-07] MEDS: Lithium Carbonate 300 MG CAPSULE PO ×2 (09:16→21:59)
[2024-04-07] MEDS: Aspirin Enteric Coated 81 MG TABLET.DR PO (09:16)
[2024-04-07] MEDS: Topiramate 25 MG TABLET 50 MG PO ×2 (09:16→21:59)
--- NOTE | 2024-04-07 11:19 | P.PNIM_ITS ---
Subjective Subjective Date of Service: 04/07/24 Interval History: copd Review of Systems sob seems improving sats also improving Physical Exam 2 Vital Signs: Vital Signs: Last Vital Signs Temp 97.8 F 04/07/24 07:34 Pulse 80 04/07/24 07:34 Resp 18 04/07/24 07:34 BP 140/90 H 04/07/24 07:34 Pulse Ox 92 04/07/24 07:34 O2 Del Method Room Air 04/07/24 07:34 O2 Flow Rate 0.5 04/07/24 03:46 FiO2 22 04/03/24 03:42 Oxygen Flow Rate 11 03/18/24 15:30 BMI result Body Mass Index 30.0 alert, agitated, poor insight, lungs diminished Objective Data Active Medications Albuterol/Ipratropium (Albuterol/Iprat 2.5/0.5mg 3 Ml Ampul.Neb) 3 ml INHALE RQ6H WHILE AWAKE [facility] Last Admin: 04/07/24 08:14 Dose: Not Given Documented By: BARNEY Non-Admin Reason: Patient Refused Aspirin (Aspirin Enteric Coated 81 Mg Tablet.) 81 mg PO DAILY [facility] Last Admin: 04/07/24 09:16 Dose: 81 mg Documented By: RETA Atorvastatin Calcium (Atorvastatin Calcium 10 Mg Tablet) 10 mg PO BEDTIME [facility] Last Admin: 04/06/24 19:38 Dose: 10 mg Documented By: MARKUS Enoxaparin Sodium (Enoxaparin Sodium 40 Mg/0.4 Ml Syringe) 40 mg SUBCUT Q24H [facility] Last Admin: 04/07/24 09:14 Dose: 40 mg Documented By: RETA Haloperidol (Haloperidol 1 Mg Tablet) 2 mg PO Q8H PRN PRN Reason: anxiety/restlessness Last Admin: 04/07/24 09:16 Dose: 2 mg Documented By: RETA Haloperidol Lactate (Haloperidol Lactate 5 Mg/Ml Vial) 2.5 mg IVPUSH Q4H PRN PRN Reason: Agitation Last Admin: 04/06/24 02:53 Dose: 2.5 mg Documented By: MARKUS Insulin Glargine (Insulin Glargine,Hum.Rec.Anlog 100 Unit/Ml 10 Ml Vial) 15 unit SUBCUT DAILY [facility] Last Admin: 04/07/24 09:14 Dose: 15 unit Documented By: REAT Insulin Human Lispro (Insulin Lispro 100 Unit/Ml 3 Ml Vial) 0 unit SUBCUT QIDACHS [facility]; Protocol Last Admin: 04/07/24 09:14 Dose: 6 unit Documented By: RETA Lactic Acid (Ammonium Lactate 12 % Cream 140 Gm Tube) 1 appl TOPICAL BID PRN; Protocol PRN Reason: Dry Skin Last Admin: 03/29/24 23:51 Dose: 1 appl Documented By: BEVERLY [place] Carbonate ([place] Carbonate 300 Mg Capsule) 300 mg PO BID [facility] Last Admin: 04/07/24 09:16 Dose: 300 mg Documented By: RETA [place] Carbonate ([place] Carbonate 300 Mg Tablet) 150 mg PO BID [facility] Last Admin: 04/07/24 09:16 Dose: 150 mg Documented By: RETA Lorazepam (Lorazepam 2 Mg/Ml Vial) 1 mg IVPUSH Q4H PRN PRN Reason: Agitation Last Admin: 04/03/24 17:02 Dose: 1 mg Documented By: CECILIO Sodium Chloride (0.9 % Sodium Chloride Flush 3 Ml [facility]) [facility] Admin: 04/07/24 09:15 Dose: 3 ml Documented By: RETA Tamsulosin HCl (Tamsulosin Hcl 0.4 Mg Capsule) 0.4 mg PO BEDTIME [facility] Last Admin: 04/06/24 19:38 Dose: 0.4 mg Documented By: MARKUS Topiramate (Topiramate 25 Mg Tablet) 50 mg PO BID [facility] Last Admin: 04/07/24 09:16 Dose: 50 mg Documented By: RETA Trazodone HCl (Trazodone Hcl 25 Mg Halftab) 75 mg PO BEDTIME [facility] Last Admin: 04/06/24 23:00 Dose: Not Given Documented By: MARKUS Non-Admin Reason: Patient Refused Labs 04/06/24 06:59 04/06/24 06:59 Labs: Laboratory Results - last 24 hr 04/06/24 04/06/24 04/07/24 16:16 21:05 07:17 POC Glucose 230 H 265 H 279 H Assessment and Plan (1) Aspiration into airway: Status: Acute Assessment and Plan: 63M PMH TBI, seizure disorder, COPD not on O2 presented from long term with sudden onset SOB has had a prolonged course complicated by acute on chronic hypercapnic respiratory failure requiring multiple transfers to ICU, ventilatory support, extubated 03/25/2024, however with poor compliance with BiPAP support requiring readmission to ICU on 04/03 for daytime BiPAP support, now titrated off daytime BiPAP support. acute on chronic hypercapnic respiratory failure secondary to copd continue nebs ,bipap,wean oxygen( goal sats -no greater than 90%, preferably 89- 90%) aspiration precaution -diet as modified(pureed/honey thick). dm dm diet moniter fs ,continue insulin Hx seizure post TBI, schizophrenia, mood d/o: on topiramate and lithium ,also on prn halodol dvt porphylax: s/c lovenox full code reason for continued hospitalization:monitoring resp status Quality Stroke Does the patient have a stroke diagnosis?: No VTE Prior VTE?: No VTE Risk Level:: Medical - moderate - high VTE Device Contraindication: N/A - Device Ordered VTE Drug Contraindication: N/A - Med Ordered
[2024-04-07 11:51] LABS: Glucose, Whole Blood 289 mg/dL (60-115)
[2024-04-07 12:00] VITALS: BP 138/60; PULSE 80; RESP 18; TEMP 37.2; O2SAT 93
--- NOTE | 2024-04-07 12:56 | MHC.SL.SWA ---
Speech Pathologist Impression: Moderate dysphagia, variable risk for aspiration d/t PMH and respiratory status Risk of Aspiration Due to: Neurological Condition History of Pneumonia Hx of Recent Extubation Reduced Cognition Dysphasia Diet Status: Upon return to [facility], it is recommended patient continue on current diet of PUREE (NDD1) with HONEY THICK liquids, Pills crushed or whole in puree. Patient will continue to need direct supervision at meals, with cuing and interruption of impulsive behaviors and monitoring for aspiration, O2 saturation Liquid Consistency and Strategies for Safe Swallow: Liquid Intake Recommendation: Honey Thick Liquid Intake Strategies: Small Sips Solid Food Consistency: Dietary Recommendations: Pureed (NDD1) Additional Modifications to Solid Foods: Recommend NDD1 (purees) with HONEY THICK liquids by tsp, pills crushed in puree. Patient demonstrates high level of impulsivity, may try to chug liquids if given cup. Patient will require nasal cannula during meals AND frequent breaks on 02 mask due to rapid desaturation noted off oxygen. Supervision of these elements with assistance as needed is required for meals at this time. Oral Medication Intake: Crushed with Puree Please contact the pharmacy regarding appropriate crushable or liquid drug formulations that are available whenever modified delivery is recommended. Compensatory Strategies and Precautions to be Taken for Safe Swallow: Sitting Upright (90 deg) Small Bites and Sips Alternate Liquids/Solids Rate of Ingestion Change Supervision While Eating and Drinking for Safe Swallow: Total Supervision (1:1) Foods to Avoid: Mixed consistencies Swallowing Recommended Treatments: Compens. Strategy Educat. Recommendation for Speech: Inpatient Speech Therapy Comment: Pt remains on restrictive diet of PUREE with HONEY THICK Liquids, pills whole (if they cannot be crushed) or crushed in puree. Frequency/Duration: M-F while inpatient. Date Range for Service Req: Timeline to reassess: [employer] Clinican/Clinical Fellow: No Supervisory Statement: I have reviewed and agree with the student/clinical fellow's documentation: N/A Speech Language Pathologist: Marybeth Phan M.S., CCC-PACU RN
--- NOTE | 2024-04-07 13:11 | MHC.CM.PN ---
Per rounds, pt is not ready to DC, DCP is for him to return to [facility] when ready. CM to follow for DC needs.
[2024-04-07 15:28] VITALS: BP 160/82; PULSE 89; RESP 18; TEMP 36.6; O2SAT 93
[2024-04-07 15:46] LABS: Glucose, Whole Blood 134 mg/dL (60-115)
[2024-04-07 19:43] VITALS: BP 136/72; PULSE 82; RESP 20; TEMP 36.6; O2SAT 89
[2024-04-07 21:01] LABS: Glucose, Whole Blood 227 mg/dL (60-115)
[2024-04-07] MEDS: Tamsulosin HCL 0.4 MG CAPSULE PO (21:59)
[2024-04-07] MEDS: Atorvastatin Calcium 10 MG TABLET PO (21:59)
[2024-04-07] MEDS: traZODone HCL 25 MG HALFTAB 75 MG PO (22:00)
[2024-04-08] VITALS (7 sets, daily range): BP systolic 109–143; BP diastolic 53–76; PULSE 82–98; RESP 18–20; TEMP 36.4–36.8; O2SAT 88–93
[2024-04-08 07:44] LABS: Glucose, Whole Blood 247 mg/dL (60-115)
--- NOTE | 2024-04-08 09:05 | MHC.SL.SWA ---
Speech Pathologist Impression: Risk of Aspiration, Oropharyngeal Dysphagia Risk of Aspiration Due to: Neurological Condition History of Pneumonia Hx of Recent Extubation Reduced Cognition Dysphasia Diet Status: No Change Liquid Consistency and Strategies for Safe Swallow: Liquid Intake Recommendation: Honey Thick Liquid Intake Strategies: Small Sips No Straws Solid Food Consistency: Dietary Recommendations: Pureed (NDD1) Additional Modifications to Solid Foods: Recommend NDD1 (purees) with HONEY THICK liquids by tsp, pills crushed in puree. Patient demonstrates high level of impulsivity, may try to chug liquids if given cup. Patient will require nasal cannula during meals AND frequent breaks on 02 mask due to rapid desaturation noted off oxygen. Supervision of these elements with assistance as needed is required for meals at this time. Oral Medication Intake: Crushed with Puree Please contact the pharmacy regarding appropriate crushable or liquid drug formulations that are available whenever modified delivery is recommended. Compensatory Strategies and Precautions to be Taken for Safe Swallow: Sitting Upright (90 deg) No Straw Liquids from Cup Liquids from [place] Small Bites and Sips Rate of Ingestion Change Supervision While Eating and Drinking for Safe Swallow: Total Supervision (1:1) Foods to Avoid: Mixed consistencies Swallowing Recommended Treatments: Compens. Strategy Educat. Recommendation for Speech: Inpatient Speech Therapy Comment: Per [facility], Patient prior to this admission was on Regular Diet with Thin Liquids. During the course of this stay, patient has evidenced a moderate to severe oral pharyngeal dysphagia, high risk for aspiration, poor insight and highly impulsive behaviors which exacerbate the risk. Patient has been placed on conservative, restrictive diet of PUREE with HONEY THICK Liquids, pills whole (if they cannot be crushed) or crushed in puree. Frequency/Duration: M-F while inpatient. Date Range for Service Req: Timeline to reassess: Delivery Associate Clinican/Clinical Fellow: No Supervisory Statement: I have reviewed and agree with the student/clinical fellow's documentation: N/A Speech Language Pathologist: Lianne Ramirez M.A., CCC-WIND SITE MANAGER
[2024-04-08] MEDS: Insulin Glargine,Hum.rec.anlog 100 UNIT/ML 10 ML VIAL 15 UNIT SUBCUT (09:33)
[2024-04-08] MEDS: Topiramate 25 MG TABLET 50 MG PO ×2 (09:34→20:47)
[2024-04-08] MEDS: Insulin Lispro 100 UNIT/ML 3 ML VIAL SUBCUT ×4 (09:34→20:45)
[2024-04-08] MEDS: Aspirin Enteric Coated 81 MG TABLET.DR PO (09:34)
[2024-04-08] MEDS: Lithium Carbonate 300 MG CAPSULE PO ×2 (09:34→20:47)
[2024-04-08] MEDS: HaloperidoL 1 MG TABLET 2 MG PO (09:35)
[2024-04-08] MEDS: Lithium Carbonate 300 MG TABLET 150 MG PO ×2 (09:35→20:48)
[2024-04-08] MEDS: Enoxaparin Sodium 40 MG/0.4 ML SYRINGE SUBCUT (09:36)
[2024-04-08] MEDS: 0.9 % Sodium Chloride Flush 3 ML SYRINGE IVFLUSH ×3 (09:37→20:48)
[2024-04-08 11:06] LABS: Glucose, Whole Blood 276 mg/dL (60-115)
--- NOTE | 2024-04-08 11:16 | P.DS_ITS ---
DS: Providers Provider Date of Service: 04/12/24 Date of admission: 03/15/24 06:38 Date of discharge: 04/12/24 Primary care physician: Hilario Blank DO Consults: 03/30/24 08:03 Consult to Wound Care Routine Reason for consultation: Inner mouth skin integrity issues improved 03/30/24 11:03 Consult to Psychiatry Routine Consulting Provider: [facility] [place] [facility] Reason for consultation: Schizophrenic, agitation Has provider been notified: No DS: Diagnosis Discharge Diagnosis (1) Aspiration into airway: Status: Acute DS: Summary Hospital Course Hospital Course: HPi:63 years old male with PMH of TBI, seizure disorder, COPD not on O2 presented from [facility] with sudden onset SOB, dyspnea and hypoxia. The patient was unable to provide much of history. he reported feeling SOB and having (breathing problem). placed on Bipap and weaned down to high flow oxygen. The patient became obtunded and repeat blood gas showed hypercapnia and respiratory acidosis. he was placed on BiPap again and plan was to transfer him to different hospital. He improved and started to remove the bipap and asking not to be moved. his HCP was contacted by ER provider and reported not to try to bother him with BiPAP if he refuses it. the patient looks more alert at time of interview and reports feeling better but was confused about his time in ER. CXR negative for any acute findings. Negative for Covid,RSV and Flu. Has Leukocytosis, and elevated tro that trended down. Admitted for further management and treatment. Hospital course: Patient had a prolonged course please see medical record for full summary. He was admitted for sudden onset shortness of breath complicated by acute on chronic hypercapnic and hypoxic respiratory failure likely due to poor compliance to BiPAP. Acquired multiple transfers to the intensive care unit throughout hospitalization requiring BiPAP support and then due to continued refusal of BiPAP eventually was intubated and extubated 03/25/2024, continued to have poor compliance with BiPAP and required readmission to the ICU on 04/03/2024, now titrated off BiPAP. However, BiPAP at night is still strongly encouraged the patient will continue to have events if he was noncompliant. For dysphagia was seen by speech therapy recommended. Solids and honey thick liquids. For diabetes was continued on insulin. For history of seizure status post TBI, schizophrenia mood disorder was continued on antiepileptics and mood stabilizers. Patient is currently medically stable will be discharged back to long-term care. Time Attestation Discharge Coordination Time (in mins): 33 Quality: Safe Use of Opioids Does Pt have an Active Cancer Diagnosis on the Problem List?: No Quality: Stroke Does the patient have a stroke diagnosis?: No Physical Exam Vital Signs: Vital Signs: Last Vital Signs Temp 97.6 F 04/08/24 07:02 Pulse 84 04/08/24 07:02 Resp 18 04/08/24 07:02 BP 138/73 04/08/24 07:02 Pulse Ox 90 L 04/08/24 07:02 O2 Del Method Room Air 04/08/24 07:02 O2 Flow Rate 0.5 04/07/24 03:46 FiO2 22 04/03/24 03:42 Oxygen Flow Rate 11 03/18/24 15:30 BMI result Body Mass Index 30.0 alert, poor insight, lungs diminished DS: Data Data Completed and Pending Labs on day of discharge: Laboratory Results - last 24 hr 04/07/24 04/07/24 04/07/24 11:47 15:37 20:57 POC Glucose 289 H 134 H 227 H 04/08/24 04/08/24 07:36 11:03 POC Glucose 247 H 276 H Discharge Plan Discharge Anticipated Discharge Date/Time: 04/01/24 11:43 Patient Disposition: Xfer SNF Discharge Diagnosis: Acute hypoxemic respiratory failure due to aspiration pneumonia on top of underlying COPD Referrals: [facility] [Outside] - 1 Day (RESUMPTION OF LTC) Hilario Blank DO [Primary Care Provider] - 1 Week Discharge Medications: New insulin glargine [Lantus U-100 Insulin] 100 unit/mL Solution 15 unit subcut DAILY Qty: 1 0RF insulin lispro [Admelog U-100 Insulin lispro] 100 unit/mL Solution See Protocol subcut QIDACHS Qty: 1 0RF Protocol: Insulin Correction Scale Less than or equal to 110 ---- Give (units): 0 111 to 150 Give (units): 0 151 to 200 Give (units): 2 201 to 250 Give (units): 4 251 to 300 Give (units): 6 301 to 350 Give (units): 8 Greater than 350 Give (units): 10 Call MD if Blood Glucose > : 350 Continued acetaminophen 325 mg Tablet 650 mg PO Q6H PRN (Reason: Fever Or Pain) atorvastatin 10 mg Tablet 10 mg PO BEDTIME fexofenadine 180 mg Tablet 180 mg PO DAILY aspirin 81 mg Tablet,Delayed Release (Dr/Ec) 81 mg PO DAILY bisacodyl 10 mg Suppository 10 mg MT DAILY PRN (Reason: constipation if senna ineffective) Fleet Enema 19-7 gram/118 mL Enema 118 ml MT DAILY PRN (Reason: constipation if bisacodyl supp ineffective) albuterol sulfate 90 mcg/actuation Hfa Aerosol Inhaler 2 puff INHALATION Q6H PRN (Reason: Bronchospasm) Artificial Tears([id number]) 1-0.2-0.2 % Drops 2 drp OPHTHALMIC (EYE) Q8H PRN (Reason: itchy eyes) guaifenesin 200 mg/5 mL Liquid 400 mg PO Q4H PRN (Reason: Congestion) fluticasone furoate-vilanterol [Breo Ellipta] 100-25 mcg/dose Blister With D evice 1 inh INHALATION DAILY metformin 500 mg Tablet 500 mg PO BID trazodone 50 mg Tablet 75 mg PO BEDTIME ondansetron HCl 8 mg Tablet 8 mg PO Q6H PRN (Reason: nausea/vomiting) sennosides-docusate sodium [Senna with Docusate Sodium] 8.6-50 mg Tablet 1 tab-cap PO BID lithium carbonate 150 mg Capsule 150 mg PO BID melatonin 3 mg Tablet 9 mg PO BEDTIME propranolol 10 mg Tablet 5 mg PO BID tamsulosin 0.4 mg Capsule 0.4 mg PO BEDTIME lithium carbonate 300 mg Capsule 300 mg PO BID topiramate 50 mg Tablet 50 mg PO BID simethicone 80 mg Tablet 80 mg PO Q6H PRN (Reason: flatulence/bloating) Spiriva Respimat 2.5 mcg/actuation Mist 2 puff INHALATION DAILY Changed lorazepam 1 mg Tablet 1 mg PO BID PRN (Reason: anxiety) Qty: 1 0RF Discontinued Humulin N NPH U-100 Insulin 100 unit/mL Suspension 12 unit SUBCUT BEDTIME Humulin N NPH U-100 Insulin 100 unit/mL Suspension 18 unit SUBCUT DAILY ibuprofen 600 mg Tablet 600 mg PO Q8H PRN (Reason: Pain) Discharge Orders: Discharge Order (Routine); Ordered 04/08/24 Ordered By: Cipriano Sanz Diet: Advance to usual diet Activity on Discharge: As tolerated Stand Alone Forms: Patient Portal Discharge page Print Language: Tunisian Activity Restrictions/Additional Instructions: dietary recommendations:PER [employer]ODUCT SUPPORT SALES REPRESENTATIVE 03/31, PUREE CONSISTENCY WITH HONEY THICK LIQUIDS. LIBERALIZED DIET FROM DIABETIC TO REGULAR TO PROMOTE INTAKE. ADDING FORTIFIED ICE CREAM (MAGIC CUP) TID TO PROVIDE 870 KCALS, 27 G PROTEIN. RECENT NPO STATUS X 4 DAYS DUE TO TO SWALLOWING CONCERNS. CONTINUE TO FOLLOW FOR DIET TOLERANCE AND NUTRITIONAL NEEDS Topical Wound Care Recommendations: Bilateral Inner Upper and Lower Lip - Provide frequent oral / mouth care. Care Plan Goals: copd excerebation aspirational pneumonia Health Concerns: as above Plan of Treatment: please repeat chest imaging in 3-4 weeks to see resolution of pneumonia. discussed with pulm:he is noncomplaint with bipap, we strongly suggest night time bipap use. psych -his lorazepam 1 mg po bid prn for intermittent agitation. moniter respitory closely. Assessment: as above. Patient Instructions: Pneumonia (DC)
--- NOTE | 2024-04-08 15:40 | HO.PM.IMPN ---
Subjective Subjective Date of Service: 04/08/24 Interval History: copd Review of Systems sob seems improving sats also improving Physical Exam Vital Signs: Vital Signs: Last Vital Signs Temp 97.9 F 04/08/24 11:42 Pulse 87 04/08/24 11:42 Resp 18 04/08/24 11:42 BP 143/76 H 04/08/24 11:42 Pulse Ox 93 04/08/24 11:42 O2 Del Method Room Air 04/08/24 11:42 O2 Flow Rate 0.5 04/07/24 03:46 FiO2 22 04/03/24 03:42 Oxygen Flow Rate 11 03/18/24 15:30 BMI result Body Mass Index 30.0 alert, poor insight, lungs diminished Objective Data Active Medications Albuterol/Ipratropium (Albuterol/Iprat 2.5/0.5mg 3 Ml Ampul.Neb) 3 ml INHALE RQ6H WHILE AWAKE [facility] Last Admin: 04/08/24 15:22 Dose: Not Given Documented By: URIEL Non-Admin Reason: Patient Refused Aspirin (Aspirin Enteric Coated 81 Mg Tablet.) 81 mg PO DAILY [facility] Last Admin: 04/08/24 09:34 Dose: 81 mg Documented By: JAILYN Atorvastatin Calcium (Atorvastatin Calcium 10 Mg Tablet) 10 mg PO BEDTIME [facility] Last Admin: 04/07/24 21:59 Dose: 10 mg Documented By: LOLIS Enoxaparin Sodium (Enoxaparin Sodium 40 Mg/0.4 Ml Syringe) 40 mg SUBCUT Q24H [facility] Last Admin: 04/08/24 09:36 Dose: 40 mg Documented By: JAILYN Haloperidol (Haloperidol 1 Mg Tablet) 2 mg PO Q8H PRN PRN Reason: anxiety/restlessness Last Admin: 04/08/24 09:35 Dose: 2 mg Documented By: JAILYN Haloperidol Lactate (Haloperidol Lactate 5 Mg/Ml Vial) 2.5 mg IVPUSH Q4H PRN PRN Reason: Agitation Last Admin: 04/06/24 02:53 Dose: 2.5 mg Documented By: MARKUS Insulin Glargine (Insulin Glargine,Hum.Rec.Anlog 100 Unit/Ml 10 Ml Vial) 15 unit SUBCUT DAILY [facility] Last Admin: 04/08/24 09:33 Dose: 15 unit Documented By: JAILYN Insulin Human Lispro (Insulin Lispro 100 Unit/Ml 3 Ml Vial) 0 unit SUBCUT QIDACHS [facility]; Protocol Last Admin: 04/08/24 11:56 Dose: 6 unit Documented By: JONATHON Lactic Acid (Ammonium Lactate 12 % Cream 140 Gm Tube) 1 appl TOPICAL BID PRN; Protocol PRN Reason: Dry Skin Last Admin: 03/29/24 23:51 Dose: 1 appl Documented By: BEVERLY [place] Carbonate ([place] Carbonate 300 Mg Capsule) 300 mg PO BID [facility] Last Admin: 04/08/24 09:34 Dose: 300 mg Documented By: JAILYN [place] Carbonate ([place] Carbonate 300 Mg Tablet) 150 mg PO BID [facility] Last Admin: 04/08/24 09:35 Dose: 150 mg Documented By: JAILYN Sodium Chloride (0.9 % Sodium Chloride Flush 3 Ml Syringe) 3 ml IVFLUSH QSHIFT [facility] Last Admin: 04/08/24 09:37 Dose: 3 ml Documented By: JAILYN Tamsulosin HCl (Tamsulosin Hcl 0.4 Mg Capsule) 0.4 mg PO BEDTIME [facility] Last Admin: 04/07/24 21:59 Dose: 0.4 mg Documented By: LOLIS Topiramate (Topiramate 25 Mg Tablet) 50 mg PO BID [facility] Last Admin: 04/08/24 09:34 Dose: 50 mg Documented By: JAILYN Trazodone HCl (Trazodone Hcl 25 Mg Halftab) 75 mg PO BEDTIME [facility] Last Admin: 04/07/24 22:00 Dose: 75 mg Documented By: LOLIS Labs 04/06/24 06:59 04/06/24 06:59 Labs: Laboratory Results - last 24 hr 04/07/24 04/07/24 04/08/24 15:37 20:57 07:36 POC Glucose 134 H 227 H 247 H 04/08/24 11:03 POC Glucose 276 H Assessment and Plan (1) Aspiration into airway: Status: Acute Assessment and Plan: 63M PMH TBI, seizure disorder, COPD not on O2 presented from skilled nursing with sudden onset SOB has had a prolonged course complicated by acute on chronic hypercapnic respiratory failure requiring multiple transfers to ICU, ventilatory support, extubated 03/25/2024, however with poor compliance with BiPAP support requiring readmission to ICU on 04/03 for daytime BiPAP support, now titrated off daytime BiPAP support. acute on chronic hypercapnic respiratory failure secondary to copd continue nebs ,bipap,wean oxygen( goal sats -no greater than 90%, preferably 89-90%) aspiration precaution -diet as modified(pureed/honey thick). dm dm diet moniter fs ,continue insulin Hx seizure post TBI, schizophrenia, mood d/o: on topiramate and lithium ,also on prn halodol dvt porphylax: s/c lovenox full code reason for continued hospitalization:awaiting rehab Quality Stroke Does the patient have a stroke diagnosis?: No VTE Prior VTE?: No VTE Risk Level:: Medical - moderate - high VTE Device Contraindication: N/A - Device Ordered VTE Drug Contraindication: N/A - Med Ordered
[2024-04-08 16:24] LABS: Glucose, Whole Blood 225 mg/dL (60-115)
[2024-04-08 20:47] LABS: Glucose, Whole Blood 177 mg/dL (60-115)
[2024-04-08] MEDS: traZODone HCL 25 MG HALFTAB 75 MG PO (20:47)
[2024-04-08] MEDS: Atorvastatin Calcium 10 MG TABLET PO (20:47)
[2024-04-08] MEDS: Tamsulosin HCL 0.4 MG CAPSULE PO (20:48)
[2024-04-09] VITALS (7 sets, daily range): BP systolic 105–142; BP diastolic 57–89; PULSE 80–98; RESP 18–23; TEMP 36.4–36.9; O2SAT 89–94
[2024-04-09 00:03] LABS: Glucose, Whole Blood 146 mg/dL (60-115)
[2024-04-09 07:39] LABS: Glucose, Whole Blood 167 mg/dL (60-115)
[2024-04-09] MEDS: Topiramate 25 MG TABLET 50 MG PO ×2 (08:19→20:53)
[2024-04-09] MEDS: Lithium Carbonate 300 MG TABLET 150 MG PO ×2 (08:19→20:53)
[2024-04-09] MEDS: Lithium Carbonate 300 MG CAPSULE PO ×2 (08:20→20:53)
[2024-04-09] MEDS: Enoxaparin Sodium 40 MG/0.4 ML SYRINGE SUBCUT (08:20)
[2024-04-09] MEDS: Insulin Glargine,Hum.rec.anlog 100 UNIT/ML 10 ML VIAL 15 UNIT SUBCUT (08:21)
[2024-04-09] MEDS: Insulin Lispro 100 UNIT/ML 3 ML VIAL SUBCUT ×4 (08:21→20:54)
[2024-04-09] MEDS: Aspirin Enteric Coated 81 MG TABLET.DR PO (08:21)
[2024-04-09] MEDS: 0.9 % Sodium Chloride Flush 3 ML SYRINGE IVFLUSH ×3 (08:23→20:57)
--- NOTE | 2024-04-09 10:21 | P.PNIM_ITS ---
Subjective Subjective Date of Service: 04/09/24 Interval History: copd Review of Systems sob seems improving sats also improving Physical Exam 2 Vital Signs: Vital Signs: Last Vital Signs Temp 97.8 F 04/09/24 07:08 Pulse 82 04/09/24 07:08 Resp 18 04/09/24 07:08 BP 130/78 04/09/24 07:08 Pulse Ox 94 04/09/24 07:08 O2 Del Method Room Air 04/09/24 07:08 O2 Flow Rate 3 04/08/24 23:46 FiO2 22 04/03/24 03:42 Oxygen Flow Rate 11 03/18/24 15:30 BMI result Body Mass Index 30.0 alert, poor insight, lungs diminished Objective Data Active Medications Albuterol/Ipratropium (Albuterol/Iprat 2.5/0.5mg 3 Ml Ampul.Neb) 3 ml INHALE RQ6H WHILE AWAKE [facility] Last Admin: 04/09/24 07:50 Dose: Not Given Documented By: URIEL Non-Admin Reason: Patient Refused Aspirin (Aspirin Enteric Coated 81 Mg Tablet.) 81 mg PO DAILY [facility] Last Admin: 04/09/24 08:21 Dose: 81 mg Documented By: CARA Atorvastatin Calcium (Atorvastatin Calcium 10 Mg Tablet) 10 mg PO BEDTIME [facility] Last Admin: 04/08/24 20:47 Dose: 10 mg Documented By: FREDA Enoxaparin Sodium (Enoxaparin Sodium 40 Mg/0.4 Ml Syringe) 40 mg SUBCUT Q24H [facility] Last Admin: 04/09/24 08:20 Dose: 40 mg Documented By: CARA Haloperidol (Haloperidol 1 Mg Tablet) 2 mg PO Q8H PRN PRN Reason: anxiety/restlessness Last Admin: 04/08/24 09:35 Dose: 2 mg Documented By: JAILYN Haloperidol Lactate (Haloperidol Lactate 5 Mg/Ml Vial) 2.5 mg IVPUSH Q4H PRN PRN Reason: Agitation Last Admin: 04/06/24 02:53 Dose: 2.5 mg Documented By: MARKUS Insulin Glargine (Insulin Glargine,Hum.Rec.Anlog 100 Unit/Ml 10 Ml Vial) 15 unit SUBCUT DAILY [facility] Last Admin: 04/09/24 08:21 Dose: 15 unit Documented By: CARA Insulin Human Lispro (Insulin Lispro 100 Unit/Ml 3 Ml Vial) 0 unit SUBCUT QIDACHS [facility]; Protocol Last Admin: 04/09/24 08:21 Dose: 2 unit Documented By: CARA Lactic Acid (Ammonium Lactate 12 % Cream 140 Gm Tube) 1 appl TOPICAL BID PRN; Protocol PRN Reason: Dry Skin Last Admin: 03/29/24 23:51 Dose: 1 appl Documented By: BEVERLY [place] Carbonate ([place] Carbonate 300 Mg Capsule) 300 mg PO BID [facility] Last Admin: 04/09/24 08:20 Dose: 300 mg Documented By: CARA [place] Carbonate ([place] Carbonate 300 Mg Tablet) 150 mg PO BID [facility] Last Admin: 04/09/24 08:19 Dose: 150 mg Documented By: CARA Sodium Chloride (0.9 % Sodium Chloride Flush 3 Ml Syringe) 3 ml IVFLUSH QSHIFT [facility] Last Admin: 04/09/24 08:23 Dose: 3 ml Documented By: CARA Tamsulosin HCl (Tamsulosin Hcl 0.4 Mg Capsule) 0.4 mg PO BEDTIME [facility] Last Admin: 04/08/24 20:48 Dose: 0.4 mg Documented By: FREDA Topiramate (Topiramate 25 Mg Tablet) 50 mg PO BID [facility] Last Admin: 04/09/24 08:19 Dose: 50 mg Documented By: CARA Trazodone HCl (Trazodone Hcl 25 Mg Halftab) 75 mg PO BEDTIME [facility] Last Admin: 04/08/24 20:47 Dose: 75 mg Documented By: FREDA Labs 04/06/24 06:59 04/06/24 06:59 Labs: Laboratory Results - last 24 hr 04/08/24 04/08/24 04/08/24 11:03 16:19 20:41 POC Glucose 276 H 225 H 177 H 04/08/24 04/09/24 23:45 07:35 POC Glucose 146 H 167 H Assessment and Plan (1) Aspiration into airway: Status: Acute Assessment and Plan: 63M PMH TBI, seizure disorder, COPD not on O2 [facility] with [facility] onset SOB has had a prolonged course complicated by acute on chronic hypercapnic respiratory failure requiring multiple transfers to ICU, ventilatory support, extubated 03/25/2024, however with poor compliance with BiPAP support requiring readmission to ICU on 04/03 for daytime BiPAP support, now titrated off daytime BiPAP support. acute on chronic hypercapnic respiratory failure secondary to copd continue nebs ,bipap,wean oxygen( goal sats -no greater than 90%, preferably 89- 90%) aspiration precaution -diet as modified(pureed/honey thick). dm dm diet moniter fs ,continue insulin Hx seizure post TBI, schizophrenia, mood d/o: on topiramate and lithium ,also on prn halodol dvt porphylax: s/c lovenox full code reason for continued hospitalization:awaiting rehab Quality Stroke Does the patient have a stroke diagnosis?: No VTE Prior VTE?: No VTE Risk Level:: Medical - moderate - high VTE Device Contraindication: N/A - Device Ordered VTE Drug Contraindication: N/A - Med Ordered
[2024-04-09 11:17] LABS: Glucose, Whole Blood 195 mg/dL (60-115)
--- NOTE | 2024-04-09 11:25 | MHC.SL.SWA ---
Speech Pathologist Impression: Risk of Aspiration Due to: Neurological Condition History of Pneumonia Hx of Recent Extubation Reduced Cognition Dysphasia Diet Status: Recommend continue on Current Diet of PUREE (NDD1) with HONEY THICK liquids, pills crushed in puree at next level of care. Liquid Consistency and Strategies for Safe Swallow: Liquid Intake Recommendation: Honey Thick Liquid Intake Strategies: Small Sips No Straws Solid Food Consistency: Dietary Recommendations: Pureed (NDD1) Additional Modifications to Solid Foods: Recommend NDD1 (purees) with HONEY THICK liquids by tsp, pills crushed in puree. Patient demonstrates high level of impulsivity, may try to chug liquids if given cup, take too large bites of food, and talk while eating (all aspiration risks). Supervision is required at all meals. Oral Medication Intake: Crushed with Puree Please contact the pharmacy regarding appropriate crushable or liquid drug formulations that are available whenever modified delivery is recommended. Compensatory Strategies and Precautions to be Taken for Safe Swallow: Sitting Upright (90 deg) No Straw Liquids from Cup Liquids from Spoon Small Bites and Sips Rate of Ingestion Change Supervision While Eating and Drinking for Safe Swallow: Total Supervision (1:1) Foods to Avoid: Mixed consistencies Swallowing Recommended Treatments: Compens. Strategy Educat. Recommendation for Speech: Inpatient Speech Therapy Comment: Patient seen during breakfast this morning. Patient is now without any supplemental O2, presented as quite animated and cheerful, and very garrulous, with talking continuing during meal, requiring frequent cuing to stop while eating (which patient snapped back at). Patient noted to have wet voice after swallow on these events, indicating residual in pharynx after swallow, which was noted to clear when patient sipped from liquid or re-swallowed. Patient fed self, frequently taking large bites of the food, expressing annoyance at any cuing to reduce the amount. However overall patient ate well, expressed enjoyment of the food, did not evidence aspiration or increased SOB throughout. Plan is to DC later today back to [facility] as notified by MD. Recommend continue on Current Diet of PUREE (NDD1) with HONEY THICK liquids, pills crushed in puree at next level of care. Frequency/Duration: M-F while inpatient. Date Range for Service Req: Timeline to reassess: Racking Technician Clinican/Clinical Fellow: No Supervisory Statement: I have reviewed and agree with the student/clinical fellow's documentation: N/A Speech Language Pathologist: Hali Barrera M.A., [facility] ANALYST
--- NOTE | 2024-04-09 12:17 | MHC.CM.PN ---
Second IMM sent to family / HCP. Pt has been medically DC'd, we are waiting for ins. auth for him to be cleared to go back to [facility].
[2024-04-09 16:32] LABS: Glucose, Whole Blood 176 mg/dL (60-115)
[2024-04-09 20:25] LABS: Glucose, Whole Blood 250 mg/dL (60-115)
[2024-04-09] MEDS: traZODone HCL 25 MG HALFTAB 75 MG PO (20:53)
[2024-04-09] MEDS: Tamsulosin HCL 0.4 MG CAPSULE PO (20:53)
[2024-04-09] MEDS: Atorvastatin Calcium 10 MG TABLET PO (20:53)
[2024-04-10 02:55] VITALS: BP 159/68; PULSE 81; RESP 16; TEMP 36.5; O2SAT 92
[2024-04-10 07:05] VITALS: BP 113/78; PULSE 75; RESP 18; TEMP 36.4; O2SAT 94
[2024-04-10 07:14] LABS: Glucose, Whole Blood 165 mg/dL (60-115)
[2024-04-10] MEDS: Aspirin Enteric Coated 81 MG TABLET.DR PO (08:19)
[2024-04-10] MEDS: Lithium Carbonate 300 MG TABLET 150 MG PO ×2 (08:19→21:29)
[2024-04-10] MEDS: Topiramate 25 MG TABLET 50 MG PO ×2 (08:19→21:29)
[2024-04-10] MEDS: Lithium Carbonate 300 MG CAPSULE PO ×2 (08:19→21:30)
[2024-04-10] MEDS: Insulin Lispro 100 UNIT/ML 3 ML VIAL SUBCUT ×4 (08:21→21:30)
[2024-04-10] MEDS: Insulin Glargine,Hum.rec.anlog 100 UNIT/ML 10 ML VIAL 15 UNIT SUBCUT (08:22)
[2024-04-10] MEDS: 0.9 % Sodium Chloride Flush 3 ML SYRINGE IVFLUSH ×2 (08:22→17:28)
[2024-04-10] MEDS: Enoxaparin Sodium 40 MG/0.4 ML SYRINGE SUBCUT (08:22)
[2024-04-10 11:17] LABS: Glucose, Whole Blood 253 mg/dL (60-115)
--- NOTE | 2024-04-10 11:40 | HO.PM.IMPN ---
Subjective Subjective Date of Service: 04/10/24 Interval History: copd Review of Systems sob seems improving sats also improving Physical Exam Vital Signs: Vital Signs: Last Vital Signs Temp 97.6 F 04/10/24 07:05 Pulse 75 04/10/24 07:05 Resp 18 04/10/24 07:05 BP 113/78 04/10/24 07:05 Pulse Ox 94 04/10/24 07:05 O2 Del Method Room Air 04/10/24 07:05 O2 Flow Rate 3 04/08/24 23:46 FiO2 22 04/03/24 03:42 Oxygen Flow Rate 11 03/18/24 15:30 BMI result Body Mass Index 30.0 alert, poor insight, lungs diminished Objective Data Active Medications Albuterol/Ipratropium (Albuterol/Iprat 2.5/0.5mg 3 Ml Ampul.Neb) 3 ml INHALE RQ6H WHILE AWAKE [facility] Last Admin: 04/10/24 07:23 Dose: Not Given Documented By: KHADAR Non-Admin Reason: Patient Refused Aspirin (Aspirin Enteric Coated 81 Mg Tablet.) 81 mg PO DAILY [facility] Last Admin: 04/10/24 08:19 Dose: 81 mg Documented By: ASHLI Atorvastatin Calcium (Atorvastatin Calcium 10 Mg Tablet) 10 mg PO BEDTIME [facility] Last Admin: 04/09/24 20:53 Dose: 10 mg Documented By: GARRETT Enoxaparin Sodium (Enoxaparin Sodium 40 Mg/0.4 Ml Syringe) 40 mg SUBCUT Q24H [facility] Last Admin: 04/10/24 08:22 Dose: 40 mg Documented By: ASHLI Haloperidol (Haloperidol 1 Mg Tablet) 2 mg PO Q8H PRN PRN Reason: anxiety/restlessness Last Admin: 04/08/24 09:35 Dose: 2 mg Documented By: JAILYN Haloperidol Lactate (Haloperidol Lactate 5 Mg/Ml Vial) 2.5 mg IVPUSH Q4H PRN PRN Reason: Agitation Last Admin: 04/06/24 02:53 Dose: 2.5 mg Documented By: MARKUS Insulin Glargine (Insulin Glargine,Hum.Rec.Anlog 100 Unit/Ml 10 Ml Vial) 15 unit SUBCUT DAILY [facility] Last Admin: 04/10/24 08:22 Dose: 15 unit Documented By: ASHLI Insulin Human Lispro (Insulin Lispro 100 Unit/Ml 3 Ml Vial) 0 unit SUBCUT QIDACHS [facility]; Protocol Last Admin: 04/10/24 08:21 Dose: 2 unit Documented By: ASHLI Lactic Acid (Ammonium Lactate 12 % Cream 140 Gm Tube) 1 appl TOPICAL BID PRN; Protocol PRN Reason: Dry Skin Last Admin: 03/29/24 23:51 Dose: 1 appl Documented By: BEVERLY [place] Carbonate ([place] Carbonate 300 Mg Capsule) 300 mg PO BID [facility] Last Admin: 04/10/24 08:19 Dose: 300 mg Documented By: ASHLI [place] Carbonate ([place] Carbonate 300 Mg Tablet) 150 mg PO BID [facility] Last Admin: 04/10/24 08:19 Dose: 150 mg Documented By: ASHLI Sodium Chloride (0.9 % Sodium Chloride Flush 3 Ml Syringe) 3 ml IVFLUSH QSHIFT [facility] Last Admin: 04/10/24 08:22 Dose: 3 ml Documented By: ASHLI Tamsulosin HCl (Tamsulosin Hcl 0.4 Mg Capsule) 0.4 mg PO BEDTIME [facility] Last Admin: 04/09/24 20:53 Dose: 0.4 mg Documented By: GARRETT Topiramate (Topiramate 25 Mg Tablet) 50 mg PO BID [facility] Last Admin: 04/10/24 08:19 Dose: 50 mg Documented By: ASHLI Trazodone HCl (Trazodone Hcl 25 Mg Halftab) 75 mg PO BEDTIME [facility] Last Admin: 04/09/24 20:53 Dose: 75 mg Documented By: GARRETT Labs 04/06/24 06:59 04/06/24 06:59 Labs: Laboratory Results - last 24 hr 04/09/24 04/09/24 04/10/24 16:26 20:22 07:07 POC Glucose 176 H 250 H 165 H 04/10/24 11:11 POC Glucose 253 H Assessment and Plan (1) Aspiration into airway: Status: Acute Assessment and Plan: 63M PMH TBI, seizure disorder, COPD not on O2 presented from jail with sudden onset SOB has had a prolonged course complicated by acute on chronic hypercapnic respiratory failure requiring multiple transfers to ICU, ventilatory support, extubated 03/25/2024, however with poor compliance with BiPAP support requiring readmission to ICU on 04/03 for daytime BiPAP support, now titrated off daytime BiPAP support. acute on chronic hypercapnic respiratory failure secondary to copd continue nebs ,bipap,wean oxygen( goal sats -no greater than 90%, preferably 89-90%) aspiration precaution -diet as modified(pureed/honey thick). dm dm diet moniter fs ,continue insulin Hx seizure post TBI, schizophrenia, mood d/o: on topiramate and lithium ,also on prn halodol dvt porphylax: s/c lovenox full code reason for continued hospitalization:awaiting rehab Quality Stroke Does the patient have a stroke diagnosis?: No VTE Prior VTE?: No VTE Risk Level:: Medical - moderate - high VTE Device Contraindication: N/A - Device Ordered VTE Drug Contraindication: N/A - Med Ordered
[2024-04-10 11:54] VITALS: BP 131/78; PULSE 80; RESP 20; TEMP 36.4; O2SAT 92
--- NOTE | 2024-04-10 12:58 | MHC.CM.PN ---
Per MD patient is ready to discharge today. Insurance authorization has been obtained. The facility is declining to accept the patient today. The DON plans to order a BIPAP. The patient refuses BIPAP here @ [facility] [place]. The SNF requires the BIPAP to be available to the patient at discharge.
[2024-04-10 15:20] VITALS: BP 124/61; PULSE 80; RESP 18; TEMP 36.7; O2SAT 92
[2024-04-10 16:25] LABS: Glucose, Whole Blood 198 mg/dL (60-115)
[2024-04-10 20:00] VITALS: BP 127/78; PULSE 83; RESP 18; TEMP 36.4; O2SAT 90
[2024-04-10 20:38] LABS: Glucose, Whole Blood 214 mg/dL (60-115)
[2024-04-10] MEDS: traZODone HCL 25 MG HALFTAB 75 MG PO (21:28)
[2024-04-10] MEDS: Tamsulosin HCL 0.4 MG CAPSULE PO (21:29)
[2024-04-10] MEDS: Atorvastatin Calcium 10 MG TABLET PO (21:30)
[2024-04-11] VITALS (7 sets, daily range): BP systolic 112–154; BP diastolic 51–90; PULSE 70–83; RESP 18; TEMP 36.3–36.8; O2SAT 90–95
[2024-04-11 08:32] LABS: Glucose, Whole Blood 147 mg/dL (60-115)
[2024-04-11] MEDS: Topiramate 25 MG TABLET 50 MG PO ×2 (09:03→21:58)
[2024-04-11] MEDS: Enoxaparin Sodium 40 MG/0.4 ML SYRINGE SUBCUT (09:03)
[2024-04-11] MEDS: Aspirin Enteric Coated 81 MG TABLET.DR PO (09:03)
[2024-04-11] MEDS: Lithium Carbonate 300 MG CAPSULE PO ×2 (09:04→21:56)
[2024-04-11] MEDS: Lithium Carbonate 300 MG TABLET 150 MG PO ×2 (09:04→22:03)
[2024-04-11] MEDS: Insulin Glargine,Hum.rec.anlog 100 UNIT/ML 10 ML VIAL 15 UNIT SUBCUT (09:05)
[2024-04-11] MEDS: 0.9 % Sodium Chloride Flush 3 ML SYRINGE IVFLUSH ×2 (09:06→17:42)
[2024-04-11 11:46] LABS: Glucose, Whole Blood 256 mg/dL (60-115)
[2024-04-11] MEDS: Insulin Lispro 100 UNIT/ML 3 ML VIAL SUBCUT ×2 (12:54→17:40)
--- NOTE | 2024-04-11 16:07 | MHC.CM.PN ---
Settings for BIPAP sent via [facility] to [facility]. KENNA will order BIPAP Friday04/12/24.
[2024-04-11 16:33] LABS: Glucose, Whole Blood 176 mg/dL (60-115)
[2024-04-11 21:41] LABS: Glucose, Whole Blood 227 mg/dL (60-115)
[2024-04-11] MEDS: traZODone HCL 25 MG HALFTAB 75 MG PO (21:57)
[2024-04-11] MEDS: HaloperidoL 1 MG TABLET 2 MG PO (21:57)
[2024-04-11] MEDS: Tamsulosin HCL 0.4 MG CAPSULE PO (21:57)
[2024-04-11] MEDS: Atorvastatin Calcium 10 MG TABLET PO (21:58)
[2024-04-12 04:00] VITALS: BP 116/57; PULSE 79; RESP 18; TEMP 36.6; O2SAT 92
[2024-04-12 07:58] LABS: Glucose, Whole Blood 192 mg/dL (60-115)
[2024-04-12 08:00] VITALS: BP 130/69; PULSE 76; RESP 20; TEMP 36.6; O2SAT 92
--- NOTE | 2024-04-12 09:57 | HO.PM.IMPN ---
Subjective Subjective Date of Service: 04/12/24 Interval History: copd Review of Systems sob seems improving sats also improving Physical Exam Vital Signs: Vital Signs: Last Vital Signs Temp 97.9 F 04/12/24 08:00 Pulse 76 04/12/24 08:00 Resp 20 04/12/24 08:00 BP 130/69 04/12/24 08:00 Pulse Ox 92 04/12/24 08:00 O2 Del Method Room Air 04/12/24 08:00 O2 Flow Rate 3 04/08/24 23:46 FiO2 22 04/03/24 03:42 Oxygen Flow Rate 11 03/18/24 15:30 BMI result Body Mass Index 30.0 alert, poor insight, lungs diminished Objective Data Active Medications Aspirin (Aspirin Enteric Coated 81 Mg Tablet.) 81 mg PO DAILY [facility] Last Admin: 04/11/24 09:03 Dose: 81 mg Documented By: ASHLI Atorvastatin Calcium (Atorvastatin Calcium 10 Mg Tablet) 10 mg PO BEDTIME [facility] Last Admin: 04/11/24 21:58 Dose: 10 mg Documented By: MARKUS Enoxaparin Sodium (Enoxaparin Sodium 40 Mg/0.4 Ml Syringe) 40 mg SUBCUT Q24H [facility] Last Admin: 04/11/24 09:03 Dose: 40 mg Documented By: ASHLI Haloperidol (Haloperidol 1 Mg Tablet) 2 mg PO Q8H PRN PRN Reason: anxiety/restlessness Last Admin: 04/11/24 21:57 Dose: 2 mg Documented By: MARKUS Haloperidol Lactate (Haloperidol Lactate 5 Mg/Ml Vial) 2.5 mg IVPUSH Q4H PRN PRN Reason: Agitation Last Admin: 04/06/24 02:53 Dose: 2.5 mg Documented By: MARKUS Insulin Glargine (Insulin Glargine,Hum.Rec.Anlog 100 Unit/Ml 10 Ml Vial) 15 unit SUBCUT DAILY [facility] Last Admin: 04/11/24 09:05 Dose: 15 unit Documented By: ASHLI Insulin Human Lispro (Insulin Lispro 100 Unit/Ml 3 Ml Vial) 0 unit SUBCUT QIDACHS [facility]; Protocol Last Admin: 04/11/24 21:58 Dose: Not Given Documented By: MARKUS Non-Admin Reason: No Insulin Coverage Lactic Acid (Ammonium Lactate 12 % Cream 140 Gm Tube) 1 appl TOPICAL BID PRN; Protocol PRN Reason: Dry Skin Last Admin: 03/29/24 23:51 Dose: 1 appl Documented By: BEVERLY Mequon Carbonate (Mequon Carbonate 300 Mg Capsule) 300 mg PO BID [facility] Last Admin: 04/11/24 21:56 Dose: 300 mg Documented By: MARKUS Mequon Carbonate ([place]on Carbonate 300 Mg Tablet) 150 mg PO BID [facility] Last Admin: 04/11/24 22:03 Dose: 150 mg Documented By: MARKUS Sodium Chloride (0.9 % Sodium Chloride Flush 3 Ml Syringe) 3 ml IVFLUSH QSHIFT [facility] Last Admin: 04/11/24 22:06 Dose: Not Given Documented By: MARKUS Non-Admin Reason: Patient Refused Tamsulosin HCl (Tamsulosin Hcl 0.4 Mg Capsule) 0.4 mg PO BEDTIME [facility] Last Admin: 04/11/24 21:57 Dose: 0.4 mg Documented By: MARKUS Topiramate (Topiramate 25 Mg Tablet) 50 mg PO BID [facility] Last Admin: 04/11/24 21:58 Dose: 50 mg Documented By: MARKUS Trazodone HCl (Trazodone Hcl 25 Mg Halftab) 75 mg PO BEDTIME [facility] Last Admin: 04/11/24 21:57 Dose: 75 mg Documented By: MARKUS Labs 04/06/24 06:59 04/06/24 06:59 Labs: Laboratory Results - last 24 hr 04/11/24 04/11/24 04/11/24 11:43 16:26 21:29 POC Glucose 256 H 176 H 227 H 04/12/24 07:52 POC Glucose 192 H Assessment and Plan (1) Aspiration into airway: Status: Acute Assessment and Plan: 63M PMH TBI, seizure disorder, COPD not on O2 presented [facility] [place] [facility] with sudden onset SOB has had a prolonged course complicated by acute on chronic hypercapnic respiratory failure requiring multiple transfers to ICU, ventilatory support, extubated 03/25/2024, however with poor compliance with BiPAP support requiring readmission to ICU on 04/03 for daytime BiPAP support, now titrated off daytime BiPAP support. acute on chronic hypercapnic respiratory failure secondary to copd continue nebs ,bipap,wean oxygen( goal sats -no greater than 90%, preferably 89-90%) aspiration precaution -diet as modified(pureed/honey thick). dm dm diet moniter fs ,continue insulin Hx seizure post TBI, schizophrenia, mood d/o: on topiramate and lithium ,also on prn halodol dvt porphylax: s/c lovenox full code reason for continued hospitalization:awaiting rehab Quality Stroke Does the patient have a stroke diagnosis?: No VTE Prior VTE?: No VTE Risk Level:: Medical - moderate - high VTE Device Contraindication: N/A - Device Ordered VTE Drug Contraindication: N/A - Med Ordered
[2024-04-12] MEDS: Insulin Glargine,Hum.rec.anlog 100 UNIT/ML 10 ML VIAL 15 UNIT SUBCUT (10:11)
[2024-04-12] MEDS: Lithium Carbonate 300 MG CAPSULE PO (10:12)
[2024-04-12] MEDS: 0.9 % Sodium Chloride Flush 3 ML SYRINGE IVFLUSH (10:12)
[2024-04-12] MEDS: Aspirin Enteric Coated 81 MG TABLET.DR PO (10:12)
[2024-04-12] MEDS: Topiramate 25 MG TABLET 50 MG PO (10:13)
[2024-04-12] MEDS: Lithium Carbonate 300 MG TABLET 150 MG PO (10:13)
[2024-04-12] MEDS: Enoxaparin Sodium 40 MG/0.4 ML SYRINGE SUBCUT (10:13)
[2024-04-12 10:57] LABS: Glucose, Whole Blood 230 mg/dL (60-115)
--- NOTE | 2024-04-12 11:01 | MHC.CM.PN ---
Addendum entered by Loreta Seals 04/12/24 12:32: Pt.'s guardian, Tran, was notified of pt.'s transfer back to [facility] this afternoon, she was happy to hear this. Original Note: Pt has been medically cleared, and ins. auth obtained for him to return to [facility] today via BLS.
[2024-04-12 12:00] VITALS: BP 146/76; PULSE 82; RESP 20; TEMP 36.6; O2SAT 90
--- NOTE | 2024-04-12 12:58 | MHC.SL.SWA ---
Speech Pathologist Impression: Moderate dysphagia d/t impulsivity, considered at elevated risk for aspiration. Pt needs 1:1 supervision during all instances of PO, continue with downgraded diet recc for NDD1 and HTL Risk of Aspiration Due to: Neurological Condition History of Pneumonia Reduced Cognition Hx of intubation Dysphasia Diet Status: Recommend continue on Current Diet of PUREE (NDD1) with HONEY THICK liquids, pills crushed in puree and 1:1 supervision/cueing at next level of care. Liquid Consistency and Strategies for Safe Swallow: Liquid Intake Recommendation: Honey Thick Liquid Intake Strategies: Small Sips No Straws Solid Food Consistency: Dietary Recommendations: Pureed (NDD1) Additional Modifications to Solid Foods: Recommend NDD1 (purees) with HONEY THICK liquids by tsp, pills crushed in puree. Patient demonstrates high level of impulsivity, may try to chug liquids if given cup, take too large bites of food, and talk while eating (all aspiration risks). Supervision is required at all meals. Oral Medication Intake: Crushed with Puree Please contact the pharmacy regarding appropriate crushable or liquid drug formulations that are available whenever modified delivery is recommended. Compensatory Strategies and Precautions to be Taken for Safe Swallow: Sitting Upright (90 deg) No Straw Liquids from Cup Small Bites and Sips Rate of Ingestion Change Supervision While Eating and Drinking for Safe Swallow: Total Supervision (1:1) Foods to Avoid: Mixed consistencies Swallowing Recommended Treatments: Compens. Strategy Educat. Recommendation for Speech: Inpatient Speech Therapy Comment: Pt is unable to comprehend the reason for recommended diet downgrade, it is unclear if pt recalls having been in the ICU or on oxygen. Pt continues to tolerate modified diet of pureed solids and HTL. Pt is unable to self-monitor to reduce risk for aspiration; impulsivity and poor awareness negatively influence efficiency of pt oropharyngeal coordination. D/c to SNF planned for this afternoon, pt will need continued LUMP INSPECTOR intervention d/t nature and severity of dysphagia. Per [facility], Patient prior to this admission was on Regular Diet with Thin Liquids. During the course of this stay, patient has evidenced a moderate to severe oral pharyngeal dysphagia, high risk for aspiration, poor insight and highly impulsive behaviors which exacerbate the risk. Patient has been placed on conservative, restrictive diet of PUREE with HONEY THICK Liquids, pills whole (if they cannot be crushed) or crushed in puree. Frequency/Duration: M-F while inpatient. Date Range for Service Req: Timeline to reassess: Rustic Fence Builder Clinican/Clinical Fellow: No Supervisory Statement: I have reviewed and agree with the student/clinical fellow's documentation: N/A Speech Language Pathologist: Marybeth Phan M.S., [facility]
== END 2024-04-12 15:28 | disposition skilled nursing facility (03) | DRG 207 ==
LOC: HO.ED 21:49 → HO.EDOVER 03-15 06:41 → HO.IMC 03-15 08:58 → HO.ICU 03-15 11:58 → HO.IMC 03-16 08:55 → HO.ICU 03-19 12:23 → HO.IMC 03-30 07:51 → HO.ICU 04-02 22:58 → HO.IMC 04-05 15:41
PROVIDERS: Emergency Medicine; Family Medicine; Internal Medicine; Internal Medicine Critical Care Medicine; Internal Medicine Pulmonary Disease; Nurse Practitioner Family; Physician Assistant Medical; Student in an Organized Health Care Education/Training Program; Admitting Provider Student in an Organized Health Care Education/Training Program; Emergency Provider Emergency Medicine Emergency Medical Services; PCP Hospitalist; Visit Provider Internal Medicine
DX: J44.1 Chronic obstructive pulmonary disease with (acute) exacerbation (principal); G93.41 Metabolic encephalopathy; J18.9 Pneumonia, unspecified organism; R57.8 Other shock; J69.0 Pneumonitis due to inhalation of food and vomit; J96.21 Acute and chronic respiratory failure with hypoxia; J96.22 Acute and chronic respiratory failure with hypercapnia; F05 Delirium due to known physiological condition; F17.210 Nicotine dependence, cigarettes, uncomplicated; Z66 Do not resuscitate; E11.65 Type 2 diabetes mellitus with hyperglycemia; J44.0 Chronic obstructive pulmonary disease with (acute) lower respiratory infection; G47.33 Obstructive sleep apnea (adult) (pediatric); E78.5 Hyperlipidemia, unspecified; L27.0 Generalized skin eruption due to drugs and medicaments taken internally; T36.0X5A Adverse effect of penicillins, initial encounter; N40.0 Benign prostatic hyperplasia without lower urinary tract symptoms; S06.9XAS Unspecified intracranial injury with loss of consciousness status unknown, sequela; X58.XXXS Exposure to other specified factors, sequela; F20.9 Schizophrenia, unspecified; G40.909 Epilepsy, unspecified, not intractable, without status epilepticus; Z20.822 Contact with and (suspected) exposure to COVID-19; D64.9 Anemia, unspecified; Z75.1 Person awaiting admission to adequate facility elsewhere; Z91.199 Patient's noncompliance with other medical treatment and regimen due to unspecified reason; Z71.6 Tobacco abuse counseling; Z79.4 Long term (current) use of insulin; Z79.51 Long term (current) use of inhaled steroids; Z79.82 Long term (current) use of aspirin; Z79.85 Long-term (current) use of injectable non-insulin antidiabetic drugs; Z79.899 Other long term (current) drug therapy
CPT/HCPCS: 0241U; 36415; 36600; 70450; 71045; 71275; 74177; 80048; 80053; 80178; 81001; 81003; 82040; 82803; 82947; 83605; 83690; 83735; 83880; 84100; 84145; 84295; 84484; 85007; 85025; 85027; 87040; 87070; 87077; 87205; 87389; 87449; 87640; 87641; 87899; 92526; 92610; 93005; 93306; 94002; 94003; 94640; 94660; 94799; 97162; 99285; C1758; J0131; J0456; J0696; J1120; J1200; J1630; J1650; J1940; J1956; J2060; J2543; J2704; J2919; J3010; Q9957; Q9967

== ENCOUNTER → 2024-03-14 17:32 | Outpatient (BNV) | payer OTHER, SELFPAY | PROVIDERS: Emergency Provider Emergency Medicine; Visit Provider Specialist | DX: R14.0 Abdominal distension (gaseous) (principal); R09.02 Hypoxemia; R06.00 Dyspnea, unspecified; R41.82 Altered mental status, unspecified; R91.8 Other nonspecific abnormal finding of lung field | CPT/HCPCS: 70450; 71045; 71275; 74177 ==

== ENCOUNTER 2024-03-15 06:38 | Outpatient (BNV) | payer MEDICARE, SELFPAY | END 2024-03-16 07:00 | PROVIDERS: Admitting Provider Student in an Organized Health Care Education/Training Program; Emergency Provider Emergency Medicine Emergency Medical Services; PCP Hospitalist; Visit Provider Internal Medicine Cardiovascular Disease | DX: I51.89 Other ill-defined heart diseases (principal) | CPT/HCPCS: 93306 ==

== ENCOUNTER 2024-03-15 06:38 | Outpatient (BNV) | payer MEDICARE, SELFPAY | END 2024-03-19 08:45 | PROVIDERS: Admitting Provider Student in an Organized Health Care Education/Training Program; Emergency Provider Emergency Medicine Emergency Medical Services; PCP Hospitalist; Visit Provider Radiology Diagnostic Radiology | DX: J18.9 Pneumonia, unspecified organism (principal); Z93.4 Other artificial openings of gastrointestinal tract status | CPT/HCPCS: 71045 ==

== ENCOUNTER 2024-03-15 06:38 | Outpatient (BNV) | payer MEDICARE, SELFPAY | END 2024-04-02 19:50 | PROVIDERS: Admitting Provider Student in an Organized Health Care Education/Training Program; Emergency Provider Emergency Medicine Emergency Medical Services; PCP Hospitalist; Visit Provider Radiology Diagnostic Radiology | DX: J44.1 Chronic obstructive pulmonary disease with (acute) exacerbation (principal) | CPT/HCPCS: 71045 ==

== ENCOUNTER → 2024-03-15 06:38 | Outpatient (BNV) | payer MEDICARE, SELFPAY | PROVIDERS: Admitting Provider Student in an Organized Health Care Education/Training Program; Emergency Provider Emergency Medicine Emergency Medical Services; Visit Provider Internal Medicine | DX: G93.40 Encephalopathy, unspecified (principal); J96.01 Acute respiratory failure with hypoxia; J96.02 Acute respiratory failure with hypercapnia; J44.1 Chronic obstructive pulmonary disease with (acute) exacerbation; J18.9 Pneumonia, unspecified organism | CPT/HCPCS: 99223; 99232; 99499 ==

== ENCOUNTER → 2024-03-15 06:38 | Outpatient (BNV) | payer MEDICARE, SELFPAY | PROVIDERS: Admitting Provider Student in an Organized Health Care Education/Training Program; Emergency Provider Emergency Medicine Emergency Medical Services; PCP Hospitalist; Visit Provider Internal Medicine Critical Care Medicine | DX: J44.1 Chronic obstructive pulmonary disease with (acute) exacerbation (principal); I21.4 Non-ST elevation (NSTEMI) myocardial infarction; D72.829 Elevated white blood cell count, unspecified; G93.40 Encephalopathy, unspecified; J96.01 Acute respiratory failure with hypoxia; J96.02 Acute respiratory failure with hypercapnia; J18.9 Pneumonia, unspecified organism; J44.9 Chronic obstructive pulmonary disease, unspecified; J81.1 Chronic pulmonary edema | CPT/HCPCS: 99291 ==

== ENCOUNTER → 2024-03-15 06:38 | Outpatient (BNV) | payer OTHER, SELFPAY | PROVIDERS: Admitting Provider Student in an Organized Health Care Education/Training Program; Emergency Provider Emergency Medicine Emergency Medical Services; PCP Hospitalist; Visit Provider Psychiatry & Neurology Psychiatry | DX: G93.40 Encephalopathy, unspecified (principal); J96.02 Acute respiratory failure with hypercapnia; S06.9XAA Unspecified intracranial injury with loss of consciousness status unknown, initial encounter | CPT/HCPCS: 99222; 99232 ==

== ENCOUNTER 2024-07-08 13:15 | Inpatient (IN) | payer MEDICARE, SELFPAY ==
[2024-07-08] VITALS (32 sets, daily range): BP systolic 78–136; BP diastolic 40–85; PULSE 48–82; RESP 16–26; TEMP 31.9–38.4; O2SAT 40–100; BMI 43.8
--- NOTE | ~2024-07-08 | XR_ITS ---
CLINICAL HISTORY: intubated 1 view chest x-ray Comparison: CR/SR - XR CHEST 1V - 07/08/24 14:37 EDT Findings: Evaluation limited based on technique and overlying devices. The endotracheal tube tip projects approximately 2 cm above the krystyna. Enteric tube projects off the image. Left-sided airspace consolidation and probable left effusion. Diffuse interstitial prominence. No acute fracture. IMPRESSION: The endotracheal tube tip projects approximately 2 cm above the krystyna. Evaluation is limited. Left-sided airspace opacity and probable effusion. This document has been electronically signed by: Juan Pablo Mora MD on 07/11/2024 09:26:15
--- NOTE | ~2024-07-08 | CT_ITS ---
EXAMINATION: CT HEAD WITHOUT CONTRAST CLINICAL INFORMATION: Altered mental status, intubated. COMPARISON: 03/14/2024. TECHNIQUE: Contiguous axial imaging was performed from the skull base to vertex without intravenous administration of contrast. This CT examination was performed using dose optimization techniques as appropriate, variously including the following: *Automated exposure control *Adjustment of mA and/or kV according to patient size (this includes techniques or standardized protocols for targeted exams where dose is matched to indication/reason for exam; i.e. extremities or head) *Use of iterative reconstruction technique FINDINGS: Exam is mild to moderately motion degraded. This limits the sensitivity for detection of subtle findings. There is no evidence of intracranial hemorrhage or extra-axial fluid collection. There is no mass effect, or edema. No CT evidence of acute territorial infarct. Bifrontal cystic encephalomalacia and anterior temporal cystic encephalomalacia, appearance likely from old trauma. Ex vacuo dilatation of the anterior horns of the lateral ventricles. Ventricles, sulci, and cisterns are otherwise normal in size and configuration for patient age. No hydrocephalus. No midline shift. Negative hyperdense MCA sign. Negative insular ribbon sign. Patchy periventricular and deep white matter hypoattenuation is consistent with mild to moderate small vessel ischemic changes. Normal pituitary. Globes and orbital contents image normally. Extracranial soft tissues demonstrate endotracheal tube in orogastric tube in the oropharynx. Moderate mucosal thickening in the sphenoid sinuses, ethmoid sinuses, and left greater than right maxillary sinuses, nonspecific in the setting of intubation. There is fluid in the posterior nasopharynx. No suspicious bony abnormalities. There are no acute fractures evident. CT/CT head/brain wo IV con IMPRESSION: 1. Mildly motion degraded examination. 2. No acute intracranial abnormality. No intracranial hemorrhage or mass effect. No CT evidence of edematous territory infarct. 3. Bifrontal and anterior right temporal cystic encephalomalacia, likely from old trauma. 4. Patient is intubated. Paranasal sinus disease and fluid in the posterior nasopharynx is nonspecific this regard. Electronically signed by: Moose Silva MD 07/08/2024 03:43 PM EDT
--- NOTE | ~2024-07-08 | XR_ITS ---
EXAMINATION: XR CHEST CLINICAL INFORMATION: SOB COMPARISON: 04/02/2024, 03/19/2024. TECHNIQUE: Frontal view of the chest was obtained. FINDINGS: Injection is apical lordotic. There is cardiomegaly. Mediastinal contours are normal. There is vascular congestion in both hilar regions. Lungs demonstrate increased opacity in the retrocardiac region, as well as increased hazy interstitial markings throughout both lungs suggestive of interstitial edema. No focal osseous or soft tissue abnormality. XR/XR chest 1V IMPRESSION: 1. Projection is apical lordotic. 2. Cardiomegaly. 3. Suspect interstitial pulmonary edema. 4. Left basilar opacity is present, atelectasis versus pneumonia. Electronically signed by: Moose Silva MD 07/08/2024 01:46 PM EDT
--- NOTE | ~2024-07-08 | XR_ITS ---
EXAMINATION: XR CHEST 1 VIEW HISTORY: post intubation COMPARISON: Comparison is made with the prior examination performed earlier in the day 1:31 PM. FINDINGS: Two AP portable views of the chest performed at 2:38 PM are submitted. There is been interval placement of an endotracheal tube with its tip approximately 3.5 cm above the krystyna. An orogastric tube terminates below the diaphragm. There is patchy airspace opacity at the left lung base, compatible with pneumonia. There is a probable small amount of fluid in the right minor fissure. There is no pneumothorax or pulmonary vascular congestion. The heart is enlarged. There is degenerative disc disease of the spine. XR/XR chest 1V IMPRESSION: Lines and tubes in place as described. Left lower lobe atelectasis versus pneumonia. Electronically signed by: Rick Bellamy MD 07/08/2024 03:02 PM EDT
--- NOTE | ~2024-07-08 | CT_ITS ---
EXAMINATION: CT CHEST WITHOUT CONTRAST CLINICAL INFORMATION: Shortness of breath. COMPARISON: March 14, 2024. Correlated to x-ray dated July 08, 2024 TECHNIQUE: Multidetector volumetric CT imaging of the chest was done. Axial MIP volume rendering provided. Sagittal and coronal reformatted images were obtained. This CT examination was performed using dose optimization techniques as appropriate, variously including the following: *Automated exposure control *Adjustment of mA and/or kV according to patient size (this includes techniques or standardized protocols for targeted exams where dose is matched to indication/reason for exam; i.e. extremities or head) *Use of iterative reconstruction technique. DLP: 704 mGy centimeter. FINDINGS: MATHEMATICS INSTRUCTOR: Cardiomediastinal structures overlapping the left hemithorax with the complete volume loss/opacification. There is an NG tube below the diaphragm. There is an IVC filter. LUNGS: There is a confluent attenuation involving the left lung with collapsed appearance of the left lower lung lobe. Probable peribronchial septal thickening and intraluminal secretions. Small patchy pulmonary groundglass, right lung. Confluent attenuation right lung base. MEDIASTINUM: Endotracheal tube ends 3 cm above krystyna. There is an NG tube in the esophagus into the stomach. There is pericardial effusion, small to moderate volume. No pneumomediastinum. Prominent mediastinal lymph nodes. Calcified plaque thoracic aorta without aneurysm. Calcified plaque in the coronary arteries. The heart is enlarged. CORONARY ARTERY CALCIFICATION: Ossified plaques. PLEURA: Calcified pleural plaques. No pneumothorax. Prominent fat in the extrapleural intrathoracic compartment. AXILLA: No lymphadenopathy. UPPER ABDOMEN: Desiccation's, gallbladder lumen. 4 cm exophytic cyst, upper pole left kidney. NG tube ending at the gastric antrum. OSSEOUS STRUCTURES: Multiple old healed rib fractures bilaterally. Multilevel syndesmophyte formation and marginal osteophyte formation throughout the axial skeleton and multilevel superior endplate compression deformities likely old. No acute cortical disruption or gross malalignment. Patient's large body habitus. CT/CT chest wo IV con IMPRESSION: Post obstructing pneumonia with atelectatic component, left lung. Concerning asbestos exposure. Mesothelioma cannot be entirely excluded. Acute airspace disease, right lower lung lobe. Pericardial effusion, small to moderate volume. Coronary artery disease and atherosclerosis disease. Cholelithiasis. Fleischner guidelines were followed. Electronically signed by: Wenceslao Jacobson MD 07/08/2024 03:36 PM EDT
--- NOTE | 2024-07-08 13:24 | ECG_ITS ---
Test Reason : ALTER MENTAL Blood Pressure : */* mmHG Vent. Rate : 55 BPM Atrial Rate : 55 BPM P-R Int : 196 ms QRS Dur : 162 ms QT Int : 474 ms P-R-T Axes : 77 -81 18 degrees QTcB Int : 453 ms Sinus bradycardia with Sinus Arrhythmia Right bundle branch block Left anterior fascicular block Bifascicular block Abnormal ECG When compared with ECG of 14-Mar-2024 17:37, Vent. rate has decreased by 55 bpm Borderline criteria for Lateral infarct are no longer Present T wave inversion now evident in Inferior leads Referred By: Yana Toledo Electronically Signed By: JUSTINE ORTEGA MD
--- NOTE | 2024-07-08 13:38 | ED_ITS ---
HPI - Altered Mental Status General Chief Complaint: Dyspnea Stated Complaint: ? sepsis alert, increased lethargy Time Seen by Provider: 07/08/24 13:33 Source: family and EMS Mode of arrival: EMS Limitations: altered mental status History of Present Illness ED Provider: HPI narrative: 63-year-old male with history of COPD, traumatic brain injury, presenting from a nursing facility, reports of hypoxia he is supposed to be on oxygen and was found that his oxygen tank has been empty, it was reported that it was just noted today but patient was found to be obtunded by EMS, some response to painful stimulus with bluish lips. We got in touch with the patient's healthcare proxy Tran his sister and stated that patient used to be DNR DNI at this time he actually wants to be full code this is a back and forth with him. Patient is otherwise limited historian due to his presentation. Related Data Home Medications ?Medication ?Instructions ?Recorded ?Confirmed acetaminophen 325 mg tablet 650 mg PO Q6H PRN Fever Or Pain 03/15/24 03/15/24 albuterol sulfate 90 mcg/actuation 2 puff inhalation Q6H PRN 03/15/24 03/15/24 aerosol inhaler Bronchospasm aspirin 81 mg tablet,delayed 81 mg PO DAILY 03/15/24 03/15/24 release atorvastatin 10 mg tablet 10 mg PO BEDTIME 03/15/24 03/15/24 bisacodyl 10 mg rectal suppository 10 mg MS DAILY PRN constipation if 03/15/24 03/15/24 senna ineffective fexofenadine 180 mg tablet 180 mg PO DAILY 03/15/24 03/15/24 fluticasone furoate 100 1 inh inhalation DAILY 03/15/24 03/15/24 mcg-vilanterol 25 mcg/dose inhalation powder (Breo Ellipta) guaifenesin 200 mg/5 mL oral liquid 400 mg PO Q4H PRN Congestion 03/15/24 03/15/24 lithium carbonate 150 mg capsule 150 mg PO BID 03/15/24 03/15/24 lithium carbonate 300 mg capsule 300 mg PO BID 03/15/24 03/15/24 melatonin 3 mg tablet 9 mg PO BEDTIME 03/15/24 03/15/24 metformin 500 mg tablet 500 mg PO BID 03/15/24 03/15/24 ondansetron HCl 8 mg tablet 8 mg PO Q6H PRN nausea/vomiting 03/15/24 03/15/24 peg [id number] 1 2 drp ophthalmic (eye) Q8H PRN 03/15/24 03/15/24 %-0.2 %-0.2 % eye drops itchy eyes (Artificial Tears ([id number])) propranolol 10 mg tablet 5 mg PO BID 03/15/24 03/15/24 sennosides 8.6 mg-docusate sodium 1 tab-cap PO BID 03/15/24 03/15/24 50 mg tablet (Senna with Docusate Sodium) simethicone 80 mg tablet 80 mg PO Q6H PRN 03/15/24 03/15/24 flatulence/bloating sodium phosphates 19 gram-7 118 ml MS DAILY PRN constipation 03/15/24 03/15/24 gram/118 mL enema (Fleet Enema) if bisacodyl supp ineffective tamsulosin 0.4 mg capsule 0.4 mg PO BEDTIME 03/15/24 03/15/24 tiotropium bromide 2.5 2 puff inhalation DAILY 03/15/24 03/15/24 mcg/actuation mist for inhalation (Spiriva Respimat) topiramate 50 mg tablet 50 mg PO BID 03/15/24 03/15/24 trazodone 50 mg tablet 75 mg PO BEDTIME 03/15/24 03/15/24 Previous Rx's ?Medication ?Instructions ?Recorded insulin glargine 100 unit/mL 15 unit (0.15 mL) subcut DAILY #1 04/01/24 subcutaneous solution (Lantus mL U-100 Insulin) insulin lispro 100 unit/mL See Protocol subcut QIDACHS #1 mL 04/01/24 subcutaneous solution (Admelog U-100 Insulin lispro) lorazepam 1 mg tablet 1 mg PO BID PRN anxiety #1 tab 04/01/24 Allergies Allergy/AdvReac Type Severity Reaction Status Date / Time vancomycin Allergy Severe Redness of Verified 07/08/24 13:42 Skin Review of Systems 2 Review of Systems: Yes Unobtainable due to mental condition PMFSH Past Medical History Medical History (Updated 07/08/24 @ 14:17 by Edilson Vatrenko, DO) Pulmonary edema Encephalopathy Non-ST elevation [place] (NSTEMI) Diabetes mellitus Epilepsy Acute respiratory failure with hypoxia and hypercarbia Aspiration pneumonia Leukocytosis COPD (chronic obstructive pulmonary disease) TBI (traumatic brain injury) Social History Social History Household Members: None Housing: Assisted Living Facility Do you presently have visiting nurse or other home services: No ([facility]ident) Comment: sitter Patient Tobacco Use Status: Current everyday Tobacco user Tobacco use type: Cigarette Cigarettes Per Day: 8 e-Cigarette/Vaping Use: Never Used Second Hand Smoke Exposure: No Advance Directives Date on File: 03/15/24 Do you have a plan to hurt others: No Plan Physical Exam ED Vital Signs: Vital Signs - 24 hr 07/08/24 13:38 07/08/24 13:50 07/08/24 13:56 Temperature 96.8 F Pulse Rate 60 56 59 Respiratory Rate 16 26 H Blood Pressure 126/84 133/71 112/70 Pulse Oximetry 95 93 93 Oxygen Delivery Method Nasal Cannula Nasal Cannula Mechanical Ventilation Oxygen Flow Rate 5 Fraction of Inspired Oxygen 07/08/24 14:24 Temperature Pulse Rate Respiratory Rate Blood Pressure Pulse Oximetry Oxygen Delivery Method Oxygen Flow Rate Fraction of Inspired Oxygen 100 BMI result Body Mass Index 43.8 Const Other: * Gen: ?Appears older than stated age, patient is obtunded * HEENT: 3 mm reactive bilaterally, no blown pupils, was able to track my fingers * Neck: Supple, no LAD * CV: RRR, no obvious murmurs appreciated * Resp: ?Decreased breath sounds throughout * Abd: ?Obese with bowel sounds present no rebound or rigidity * Skin: Warm, dry, intact, * Neuro: Patient is lethargic, followed some commands was able to open his eyes to painful stimulus Medications Administered Generic Name Dose Route Start Last Admin Trade Name Freq PRN Reason Stop Dose Admin Sodium Chloride 1,000 mls @ 999 mls/hr 07/08/24 14:15 07/08/24 14:25 Ns IV 07/08/24 15:15 999 mls/hr .Q1H1M JENNIFER Administration Medical Decision Making Medical Decision Making MDM Narrative: 13:41 patient presented with significant lethargy, has been hypoxic and known amount of time really when his oxygen tank became empty, reviewed his prior ER visit at that point he was not able to tolerate a BiPAP, we spoke to patient's sister who stated that patient is currently full code prior to that he was DNR DNI and so we obtained verbal consent over the phone for intubation, patient is not really able to contribute to his presentation due to significant lethargy. Considerations for his altered mental status as below. We will be admitting to ICU after he is intubated. 14:09 patient is intubated, we will be contacting ICU. We will also cover with cefepime he is allergic to vancomycin as chest x-ray suspicious for pneumonia, there may be some increased vascular congestion so we will give gentle fluids instead of 30 cc/kilo 240pm: X-ray with good positioning of the ET tube and NG tube Differential Diagnosis Differential Diagnoses: The differential diagnosis associated with the presentation includes CO2 narcosis, pneumonia, pneumothorax, CHF, ACS, dehydration, over medication, intracranial bleed Admission/Observation Consideration of admission/observation: Escalation of care including admission/observation considered Lab Data MDM Lab Attestation statement: I reviewed the patient's lab results. 07/08/24 13:44 07/08/24 13:44 Labs: Lab Results 07/08/24 07/08/24 07/08/24 Range/Units 13:44 13:49 14:07 WBC 17.0 H (4.8-10.8) X10*3/uL RBC 5.05 (4.60-5.80) X10*6/uL Hgb 15.0 (14.0-18.0) g/dl Hct 51.0 D (42.0-52.0) % MCV 101.0 H (80.0-98.0) fL MCH 29.7 (27.0-33.0) pg MCHC 29.4 L (31.0-36.0) g/dl RDW 15.6 (11.0-16.0) % Plt Count 215 (160-400) X10*3/uL MPV 10.5 (9.4-12.4) fL Immature Gran % (Auto) 0.5 H (0.0-0.4) % Neut % (Auto) 83.1 H (45-73) % Lymph % (Auto) 9.7 L (20-40) % [place] % (Auto) 6.0 (2-11) % Eos % (Auto) 0.5 (0-4) % Baso % (Auto) 0.2 (0-2) % Lymph # (Auto) 1.7 (1.2-4.9) X10*3/uL [place] # (Auto) 1.0 (0.1-1.2) X10*3/uL Eos # (Auto) 0.1 (0.0-0.4) X10*3/uL Baso # (Auto) 0.0 (0.0-0.2) X10*3/uL Abs Immat Gran (auto) 0.08 H (0.00-0.03) X10*3/uL Absolute Neuts (auto) 14.2 H (2.0-8.3) x10*3/uL Absolute Nucleated RBC 0.000 (0.0-0.012) X10*3/uL Nucleated RBC % (auto) 0.0 (0.0-0.2) /100WBC PT 12.3 (10.9-12.4) SEC INR 1.1 (0.9-1.1) VBG pH 7.23 L (7.32-7.43) VBG pCO2 79 mmHg VBG pO2 69 mmHg VBG HCO3 34 H (22-26) mmol/L VBG O2 Saturation 89.0 % VBG Base Excess 3.4 mmol/L Sodium 140 (135-145) mmol/L Potassium 5.4 H D (3.3-5.1) mmol/L Chloride 103 (96-108) mmol/L Carbon Dioxide 32 H (22-29) mmol/L Anion Gap 10 L (12-20) BUN 30 H (9-16) mg/dL Creatinine 1.34 (0.5-1.4) mg/dL Estim Creat Clear Calc 68.0 Estimated GFR 53 Random Glucose 105 (60-115) mg/dL Lactic Acid 0.9 (0.5-2.0) mmol/L Calcium 8.9 (8.4-10.2) mg/dL Magnesium 2.6 (1.6-2.6) mg/dL Total Bilirubin 0.4 (0.0-1.0) mg/dL AST 27 (5-37) U/L ALT 34 (0-40) U/L Alkaline Phosphatase 156 H (39-117) U/L Troponin I High Sens 47.7 H D (<3.5-35.0) ng/L Total Protein 7.7 (6.5-8.0) g/dL Albumin 3.7 (3.5-5.0) g/dL Influenza Type A (PCR) NEGATIVE (Negative) Influenza Type B (PCR) NEGATIVE (Negative) RSV RNA Qual (PCR) NEGATIVE (Negative) SARS-CoV-2 RNA (RT-PCR) NEGATIVE (Negative) ABG Data Attestation ABG: I personally reviewed and interpreted this ABG as follows: (VBG results mild acidosis) Independent Interpretation I performed an independent interpretation of an: EKG (55, sinus bradycardia, left anterior fascicular block, likely partial right bundle-branch block, no QTC prolongation, no dysrhythmia my independent interpretation) and Plain X-Ray (Cardiomegaly, increased vascular congestion, consolidations in the left) Radiology Impression Discussion of test interpretation with radiology: I have reviewed the radiologist's reading. Independent Historian Clinical information obtained from an independent historian. History obtained from or confirmed by: Other (We spoke to Tran his healthcare proxy and sister who told us that patient is full code) External Record Review External record reviewed: Outside ED record Procedures Intubation Intubation Type:: Endotracheal Tube Insertion Intubation Date:: 07/08/24 Intubation Time:: 13:40 Time out performed: Yes sedative: Etomidate Mg Given: 20 paralytic: Rocuronium Mg Given: 100 Laryngoscope: fiber optic video scope ET Tube Size: 8 ET Tube Uncuffed: No Tube Secured Depth (cm): 22 Tube Secured Location: lips Tube Placement Confirmation: visualized tube passing through cords, equal breath sounds bilaterally and confirmation by capnometry Patient Tolerated Procedure: no complications Intubation Complications: none Critical Care Time Critical Care Time Total Critical Care Time: 60 Attestation: Time is exclusive of separately billable procedures. Time includes: direct patient care, patient reassessment, coordination of patient care, interpretation of data (laboratory data, pulse oximetry, arterial blood gases and chest xrays), review of patient's medical records, medical consultation and documentation of patient care. Procedures excluded from critical care time: central intravenous line placement and electrocardiography. Discharge Plan Discharge Clinical Impression: Respiratory failure, Pneumonia, COPD (chronic obstructive pulmonary disease) Prescriptions: No Action acetaminophen 325 mg Tablet 650 mg PO Q6H PRN (Reason: Fever Or Pain) atorvastatin 10 mg Tablet 10 mg PO BEDTIME fexofenadine 180 mg Tablet 180 mg PO DAILY aspirin 81 mg Tablet,Delayed Release (Dr/Ec) 81 mg PO DAILY bisacodyl 10 mg Suppository 10 mg MS DAILY PRN (Reason: constipation if senna ineffective) Fleet Enema 19-7 gram/118 mL Enema 118 ml MS DAILY PRN (Reason: constipation if bisacodyl supp ineffective) albuterol sulfate 90 mcg/actuation Hfa Aerosol Inhaler 2 puff INHALATION Q6H PRN (Reason: Bronchospasm) Artificial Tears([id number]) 1-0.2-0.2 % Drops 2 drp OPHTHALMIC (EYE) Q8H PRN (Reason: itchy eyes) guaifenesin 200 mg/5 mL Liquid 400 mg PO Q4H PRN (Reason: Congestion) fluticasone furoate-vilanterol [Breo Ellipta] 100-25 mcg/dose Blister With Device 1 inh INHALATION DAILY metformin 500 mg Tablet 500 mg PO BID trazodone 50 mg Tablet 75 mg PO BEDTIME ondansetron HCl 8 mg Tablet 8 mg PO Q6H PRN (Reason: nausea/vomiting) sennosides-docusate sodium [Senna with Docusate Sodium] 8.6-50 mg Tablet 1 tab-cap PO BID lithium carbonate 150 mg Capsule 150 mg PO BID melatonin 3 mg Tablet 9 mg PO BEDTIME propranolol 10 mg Tablet 5 mg PO BID tamsulosin 0.4 mg Capsule 0.4 mg PO BEDTIME lithium carbonate 300 mg Capsule 300 mg PO BID topiramate 50 mg Tablet 50 mg PO BID simethicone 80 mg Tablet 80 mg PO Q6H PRN (Reason: flatulence/bloating) Spiriva Respimat 2.5 mcg/actuation Mist 2 puff INHALATION DAILY insulin glargine [Lantus U-100 Insulin] 100 unit/mL Solution 15 unit subcut DAILY Qty: 1 0RF insulin lispro [Admelog U-100 Insulin lispro] 100 unit/mL Solution See Protocol subcut QIDACHS Qty: 1 0RF Protocol: Insulin Correction Scale Less than or equal to 110 ---- Give (units): 0 111 to 150 Give (units): 0 151 to 200 Give (units): 2 201 to 250 Give (units): 4 251 to 300 Give (units): 6 301 to 350 Give (units): 8 Greater than 350 Give (units): 10 Call if Blood Glucose > : 350 lorazepam 1 mg Tablet 1 mg PO BID PRN (Reason: anxiety) Qty: 1 0RF Print Language: Unable To Collect
[2024-07-08 13:49] LABS: MANUAL DIFF FLAG NO
[2024-07-08 13:51] LABS: Basophils Percent Auto 0.2 % (0-2); Eosinophils Absolute Auto 0.1 X10*3/uL (0.0-0.4); Eosinophils Percent Auto 0.5 % (0-4); Imm Gran Abs Auto 0.08 X10*3/uL (0.00-0.03); Imm Gran Pct Auto 0.5 % (0.0-0.4); Lymphocytes Absolute Auto 1.7 X10*3/uL (1.2-4.9); Lymphocytes Percent Auto 9.7 % (20-40); Mean Corpuscular HGB Conc 29.4 g/dl (31.0-36.0); Mean Corpuscular Hemoglobin 29.7 pg (27.0-33.0); Mean Platelet Volume 10.5 fL (9.4-12.4); Neutrophils Absolute Auto 14.2 x10*3/uL (2.0-8.3); Neutrophils Percent Auto 83.1 % (45-73); Platelet Count 215 X10*3/uL (160-400); Red Blood Count 5.05 X10*6/uL (4.60-5.80); Red Cell Distribution Width 15.6 % (11.0-16.0)
[2024-07-08] MEDS: Etomidate 20 MG/10 ML VIAL IVPUSH (13:52)
[2024-07-08] MEDS: Rocuronium Bromide 50 MG/5 ML VIAL 100 MG IVPUSH (13:52)
[2024-07-08 13:53] LABS: VBG Base Excess 3.4 mmol/L; VBG HCO3 34 mmol/L (22-26); VBG pCO2 79 mmHg; VBG pH 7.23 (7.32-7.43); VBG pO2 69 mmHg
[2024-07-08 13:55] LABS: INTERNATIONAL NORM RATIO 1.1 (0.9-1.1); Prothrombin Time 12.3 SEC (10.9-12.4); Venous Blood Gas Refer to POC result
[2024-07-08] MEDS: propofoL 1,000 MG/100 ML VIAL 14.78 MG IVCONT ×2 (13:58→17:59)
[2024-07-08 14:24] LABS: Troponin-I High Sensitivity 47.7 ng/L (<3.5-35.0)
[2024-07-08] MEDS: 0.9 % Sodium Chloride 1,000 ML 999 ML IV (14:25)
[2024-07-08 14:29] LABS: Lactic Acid 0.9 mmol/L (0.5-2.0)
[2024-07-08 14:30] LABS: Alanine Aminotransferase 34 U/L (0-40); Albumin Level 3.7 g/dL (3.5-5.0); Alkaline Phosphatase 156 U/L (39-117); Anion Gap 10 (12-20); Aspartate Amino Transferase 27 U/L (5-37); Bilirubin Total 0.4 mg/dL (0.0-1.0); Blood Urea Nitrogen 30 mg/dL (9-16); Calcium 8.9 mg/dL (8.4-10.2); Carbon Dioxide 32 mmol/L (22-29); Chloride 103 mmol/L (96-108); Estimated Glomerular Filt Rate 53; Glucose Random 105 mg/dL (60-115); Influenza A PCR NEGATIVE (Negative); Influenza B PCR NEGATIVE (Negative); Magnesium 2.6 mg/dL (1.6-2.6); Potassium 5.4 mmol/L (3.3-5.1); Resp Syncy Virus RNA Qual PCR NEGATIVE (Negative); SARS COV2 PCR INHOUSE NEGATIVE (Negative); Sodium 140 mmol/L (135-145); Total Protein 7.7 g/dL (6.5-8.0)
[2024-07-08] MEDS: cefEPime HCl/D5W 2 GM/50 ML PIGGYBACK IV ×2 (14:46→23:19)
--- NOTE | 2024-07-08 14:52 | PM.CCHP ---
History of Present Illness Date of Service: 07/08/24 Chief Complaint: Shortness of breaths 63-year-old male with past medical history of chronic hypoxic respiratory failure secondary to COPD , TBI living in a halfway was found hypoxic turn blue this morning so was brought into the ED. the onset was acute, exacerbated by loss of oxygen in the tag, his oxygen tank vent empty, no relieving factors, associated with shortness of breath and dyspnea. In the ED he was found to be hypoxic, ABG showed combined hypercapnic and hypoxic respiratory failure so he was intubated and placed on ventilator support MICU is consulted for admission. of note, previously patient has been DNI DNR but he recently said his sister to revert. Review of Systems Review of Systems: unable to obtain as patient is unresponsive PMF Past Medical History Medical History (Updated 07/08/24 @ 14:17 by Edilson Ellison DO) Pulmonary edema Encephalopathy Non-ST elevation NM (NSTEMI) Diabetes mellitus Epilepsy Acute respiratory failure with hypoxia and hypercarbia Aspiration pneumonia Leukocytosis COPD (chronic obstructive pulmonary disease) TBI (traumatic brain injury) Social History Social History Household Members: None Housing: Assisted Living Facility Do you presently have visiting nurse or other home services: No ([facility]) Comment: sitter Patient Tobacco Use Status: Current everyday Tobacco user Tobacco use type: Cigarette Cigarettes Per Day: 8 e-Cigarette/Vaping Use: Never Used Second Hand Smoke Exposure: No Advance Directives Date on File: 03/15/24 Meds Allergies Allergy/AdvReac Type Severity Reaction Status Date / Time vancomycin Allergy Severe Redness of Verified 07/08/24 13:42 Skin Active Medications: Current Medications Chlorhexidine Gluconate (Chlorhexidine Gluc Oral Rinse 15 Ml Mouthwash) 15 ml BUCCAL Q8H JENNIFER Enoxaparin Sodium (Enoxaparin Sodium 40 Mg/0.4 Ml Syringe) 40 mg SUBCUT Q24H JENNIFER Sodium Chloride (Ns) 1,000 mls @ 999 mls/hr IV .Q1H1M JENNIFER Stop: 07/08/24 15:15 Last Infusion: 07/08/24 14:42 Dose: Infused Propofol (Diprivan) 1,000 mg in 100 mls @ 0 mls/hr IVCONT .Q0M JENNIFER; Protocol Fentanyl (Sublimaze/Ns) 1,000 mcg in 100 mls @ 5 mls/hr IVCONT .Q20H JENNIFER; Protocol Naloxone HCl (Naloxone Hcl 0.4 Mg/Ml Vial) 0.2 mg IVPUSH Q2M PRN PRN Reason: Excessive sedation or RR < 8 Pantoprazole Sodium (Pantoprazole Sodium 40 Mg/10 Ml Vial) 40 mg IVPUSH DAILY@0630 [facility] Home Medications ?Medication ?Instructions ?Recorded ?Confirmed ?Last Taken ?Type acetaminophen 325 mg tablet 650 mg PO Q6H PRN Fever Or Pain 03/15/24 03/15/24 Unknown History albuterol sulfate 90 mcg/actuation 2 puff inhalation Q6H PRN 03/15/24 03/15/24 Unknown History aerosol inhaler Bronchospasm aspirin 81 mg tablet,delayed 81 mg PO DAILY 03/15/24 03/15/24 Unknown History release atorvastatin 10 mg tablet 10 mg PO BEDTIME 03/15/24 03/15/24 Unknown History bisacodyl 10 mg rectal suppository 10 mg DE DAILY PRN constipation if 03/15/24 03/15/24 Unknown History senna ineffective fexofenadine 180 mg tablet 180 mg PO DAILY 03/15/24 03/15/24 Unknown History fluticasone furoate 100 1 inh inhalation DAILY 03/15/24 03/15/24 Unknown History mcg-vilanterol 25 mcg/dose inhalation powder (Breo Ellipta) guaifenesin 200 mg/5 mL oral liquid 400 mg PO Q4H PRN Congestion 03/15/24 03/15/24 Unknown History lithium carbonate 150 mg capsule 150 mg PO BID 03/15/24 03/15/24 Unknown History lithium carbonate 300 mg capsule 300 mg PO BID 03/15/24 03/15/24 Unknown History melatonin 3 mg tablet 9 mg PO BEDTIME 03/15/24 03/15/24 Unknown History metformin 500 mg tablet 500 mg PO BID 03/15/24 03/15/24 Unknown History ondansetron HCl 8 mg tablet 8 mg PO Q6H PRN nausea/vomiting 03/15/24 03/15/24 Unknown History peg [id number] 1 2 drp ophthalmic (eye) Q8H PRN 03/15/24 03/15/24 Unknown History %-0.2 %-0.2 % eye drops itchy eyes (Artificial Tears ([id number])) propranolol 10 mg tablet 5 mg PO BID 03/15/24 03/15/24 Unknown History sennosides 8.6 mg-docusate sodium 1 tab-cap PO BID 03/15/24 03/15/24 Unknown History 50 mg tablet (Senna with Docusate Sodium) simethicone 80 mg tablet 80 mg PO Q6H PRN 03/15/24 03/15/24 Unknown History flatulence/bloating sodium phosphates 19 gram-7 118 ml DE DAILY PRN constipation 03/15/24 03/15/24 Unknown History gram/118 mL enema (Fleet Enema) if bisacodyl supp ineffective tamsulosin 0.4 mg capsule 0.4 mg PO BEDTIME 03/15/24 03/15/24 Unknown History tiotropium bromide 2.5 2 puff inhalation DAILY 03/15/24 03/15/24 Unknown History mcg/actuation mist for inhalation (Spiriva Respimat) topiramate 50 mg tablet 50 mg PO BID 03/15/24 03/15/24 Unknown History trazodone 50 mg tablet 75 mg PO BEDTIME 03/15/24 03/15/24 Unknown History Physical Exam Vital Signs: Vital Signs: Last Vital Signs Temp 97.2 F 07/08/24 14:30 Pulse 54 07/08/24 14:30 Resp 20 07/08/24 14:30 BP 131/84 07/08/24 14:30 Pulse Ox 100 07/08/24 14:30 O2 Del Method Mechanical Ventil ation 07/08/24 14:30 O2 Flow Rate 5 07/08/24 13:50 FiO2 100 07/08/24 14:24 BMI result Body Mass Index 43.8 General: elderly male in severeacute distress, chronically ill appearing and tired appearing Nutritional Appearance: well nourished and overweight Eyes: appearance normal, both eyes and all related structures; Alignment and Position: alignment normal and position normal Neck: No lymphadenopathy, no thyromegaly Resp: bilateral air entry equal, bilateral air entry okay, wheezes heard Cardio: Regular rate, regular rhythm; Heart sounds: S1 normal heart sound present and S2 normal heart sound present GI: soft, nontender, no guarding, no hepatosplenomegaly : bladder normal to inspection, bladder normal to palpation, no renal angle tenderness Skin: no rashes or lesions noted and elasticity normal Neuro: currently paralyzed for intubation Results Labs 07/08/24 13:44 07/08/24 13:44 Labs: Laboratory Results - last 24 hr 07/08/24 07/08/24 07/08/24 13:44 13:49 14:07 MCV 101.0 H MCH 29.7 MCHC 29.4 L RDW 15.6 Plt Count 215 MPV 10.5 Immature Gran % (Auto) 0.5 H Neut % (Auto) 83.1 H Lymph % (Auto) 9.7 L [place] % (Auto) 6.0 Eos % (Auto) 0.5 Baso % (Auto) 0.2 Lymph # (Auto) 1.7 [place] # (Auto) 1.0 Eos # (Auto) 0.1 Baso # (Auto) 0.0 Abs Immat Gran (auto) 0.08 H Absolute Neuts (auto) 14.2 H Absolute Nucleated RBC 0.000 Nucleated RBC % (auto) 0.0 PT 12.3 INR 1.1 VBG pH 7.23 L VBG pCO2 79 VBG pO2 69 VBG HCO3 34 H VBG O2 Saturation 89.0 VBG Base Excess 3.4 Anion Gap 10 L Estim Creat Clear Calc 68.0 Estimated GFR 53 Random Glucose 105 Lactic Acid 0.9 Calcium 8.9 Magnesium 2.6 Total Bilirubin 0.4 AST 27 ALT 34 Alkaline Phosphatase 156 H Troponin I High Sens 47.7 H D Total Protein 7.7 Albumin 3.7 Influenza Type A (PCR) NEGATIVE Influenza Type B (PCR) NEGATIVE RSV RNA Qual (PCR) NEGATIVE SARS-CoV-2 RNA (RT-PCR) NEGATIVE Imaging Radiologist's Impressions: Impressions Chest X-Ray 07/08/24 13:23 IMPRESSION: 1. Projection is apical lordotic. 2. Cardiomegaly. 3. Suspect interstitial pulmonary edema. 4. Left basilar opacity is present, atelectasis versus pneumonia. Electronically signed by: Moose Silva MD 07/08/2024 01:46 PM EDT Assessment and Plan (1) TBI (traumatic brain injury): Status: Acute (2) Acute exacerbation of chronic obstructive pulmonary disease (COPD): Status: Acute (3) Respiratory failure with hypoxia and hypercapnia: Qualifiers: Chronicity: acute Qualified Code(s): J96.01 - Acute respiratory failure with hypoxia; J96.02 - Acute respiratory failure with hypercapnia Status: Acute (4) COPD (chronic obstructive pulmonary disease): Status: Acute (5) Acute respiratory failure with hypercapnia: Status: Acute Plan Neuro: Acute encephalopathy possibly due to metabolic encephalopathy On propofol for sedation, we will add fentanyl for analgesia Close neurological status monitoring in the ICU every hour Cardiac: blood pressure stable Respiratory: Acute hypoxemic respiratory failure as the patient ran out of oxygen in his oxygen tank, has underlying COPD we will treat as a COPD exacerbation Currently on ventilator support On PRVC mode FiO2 100%, we will titrate down as tolerated PEEP 5, TV 400, RR 20 Peak pressures and plateau pressures are under the curve Ventilator management bundle with head end elevation, aspiration precaution, chlorhexidine mouthwash, daily awakening trials, daily spontaneous breathing trials bronchodilators [id number], we will add steroids for COPD exacerbation GI: We will start on tube feeds Renal: renal function normal We will closely monitor I's and O's Avoid nephrotoxic medications Heme: Chronic anemia, closely monitor H&H, transfuse for hemoglobin less than 7 grams/deciliter Endocrine: Blood sugars under control Sliding scale insulin as needed Infectious disease: We will send pancultures empiric antibiotics has been started Musculoskeletal: Decubitus ulcer prevention protocol Lines: peripheral Prophylaxis: Lovenox, pantoprazole total critical care time spent is about 45 minutes on evaluation and admission of this critically ill patient to the medical ICU, formulating critical care plan and management, sedation management, point post intubation care, ventilator management, close hemodynamic monitoring at this time is excluding any procedural time
--- OUTSIDE RECORDS SUMMARY | 2024-07-08 14:58 | XMS_ITS | Clinical Summary ---
Author Organization [address] Address [address] [place] [address] Phone Care Team Providers Care Trailer Body Assembler Name Role Phone Hilario Blank MD Primary Care Provider [phone] Encounters Date Type Department Care Team Description 06/21/[address] 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 [address] [place] [address] Hilario Blank MD Polydipsia; Type 2 diabetes mellitus without complications (CMS/HCC V24, CMS/HCC V28) from Last 3 Months Social History Tobacco Use Types Packs/Day Years Used Date Smoking Tobacco: Never Assessed Sex and Gender Information Value Date Recorded Sex Assigned at Not on file Legal Sex Male 7:31 AM EST Gender Identity Not on file Sexual Orientation Not on file Plan of Treatment Health Maintenance Due Date Last Done Comments Diabetes: Annual Foot Exam 1968 Diabetes: Annual Retina Eye Exam 1968 DTaP,Tdap,and Td Vaccines (1 - Tdap) 1977 Pneumococcal Vaccine: 50+ Years (1 of 2 - PCV) 1977 Pneumococcal Vaccine: Pediatrics (0 to 5 Years) and At-Risk Patients (6 to 64 Years) (1 of 2 - PCV) 1977 Zoster Vaccines (1 of 2) 2008 COVID-19 Vaccine (2023-2 5 season) 2023 Abdominal Aortic Aneurysm (AAA) Screen 02/10/2024 Colorectal Cancer Screening: Colonoscopy 02/10/2024 Depression Screening 02/10/2024 Falls Risk Assessment 02/10/2024 Hepatitis C Screening 02/10/2024 Medicare Annual Wellness Visit 02/10/2024 Social Influencers of Health Screening 02/10/2024 Diabetes: Annual Urine Albumin-Creatinine Ratio (uACR) 05/13/2024 Influenza Vaccine (Season Ended) 2024 Diabetes: Blood Sugar Contro l Test (HGBA1C) 12/22/2024 06/21/2024, 05/13/2024, 02/10/2024 Diabetes: Annual GFR (Glomerular Filtration Rate) 06/21/2025 06/21/2024, 05/13/2024, 02/10/2024 Cholesterol Screening (Lipid Panel) 02/09/2029 02/10/2024 RSV Immunization Adult Patients (1 - 1-dose 75+ series) 2033 HIB Vaccines Aged Out No longer eligi ble based on patient's age to complete this topic HPV Vaccines Aged Out No longer eligi ble based on patient's age to complete this topic Hepatitis A Vaccines Aged Out No long er eligible based on patient's age to complete this topic Hepatitis B Vaccines Aged Out No long er eligible based on patient's age to complete this topic IPV Vaccines Aged Out No longer eligi ble based on patient's age to complete this topic MMR Vaccines Aged Out No longer eligi ble based on patient's age to complete this topic Meningococcal ACWY Vaccine Aged Out N o longer eligible based on patient's age to complete this topic Meningococcal B Vaccine Aged Out No l onger eligible based on patient's age to complete this topic RSV Immunization Patients Under 20 months Aged Out No longer eligible b ased on patient's age to complete this topic Varicella Vaccines Aged Out No longer eligible based on patient's age to complete this topic Procedures Procedure Name Priority Date/Time Associated Diagnosis Comments CBC WITH AUTO DIFFERENTIAL Routine 06/21/2024 6:15 AM EDT Type 2 diabetes mellitus without complications (CMS/HCC V24, CMS/HCC V28) 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 V24, [facility] V28) Other assisted (current) drug therapy Encounter for therapeutic drug level monitoring HEMOGLOBIN A1C Routine 06/21/2024 6:15 AM EDT Type 2 diabetes mellitus without complications ([facility] V24, [facility] V28) Other assisted (current) drug therapy Encounter for therapeutic drug level monitoring CBC AND DIFFERENTIAL Routine 06/21/2024 6:15 AM EDT Type 2 diabetes mellitus without complications ([facility] V24, [facility] V28) Other assisted (current) drug therapy Encounter for therapeutic drug level monitoring COMPREHENSIVE METABOLIC PANEL Routine 06/21/2024 6:15 AM EDT Type 2 diabetes mellitus without complications ([facility] V24, 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 from Last 3 Months or Most Recently Relevant to Health Maintenance Results * (ABNORMAL) CBC auto differential (06/21/2024 6:15 AM EDT) [facility] WBC 11.7(H) 4.8 - 10.8 K/[facility] LAB HEMETOLOGY METHOD 06/21/2024 7:18 AM EDT [facility] RBC 4.40(L) 4.50 - 5.50 M/[facility] LAB HEMETOLOGY METHOD 06/21/2024 7:18 AM [facility] Hemoglobin 12.9(L) 13.5 - 17.5 g/dL LAB HEMETOLOGY METHOD 06/21/2024 7:18 AM [facility] Hematocrit 42.4 42.0 - 54.0 % LAB HEMETOLOGY METHOD 06/21/2024 7:18 AM [facility] MCV 97.0 79.0 - 98.0 FL LAB HEMETOLOGY METHOD 06/21/2024 7:18 AM [facility] MCH 29.5 27.0 - 32.0 pcg LAB HEMETOLOGY METHOD 06/21/2024 7:18 AM [facility] MCHC 30.4(L) 32.0 - 37.0 g/dL LAB HEMETOLOGY METHOD 06/21/2024 7:18 AM [facility] RDW 14.6 11.0 - 15.0 % LAB HEMETOLOGY METHOD 06/21/2024 7:18 AM [facility] Platelets 185 130 - 400 K/mcL LAB HEMETOLOGY METHOD 06/21/2024 7:18 AM [facility] MPV 10.4 7.0 - 11.0 FL LAB HEMETOLOGY METHOD 06/21/2024 7:18 AM [facility] NRBC 0.0 <1.0 % LAB HEMETOLOGY METHOD 06/21/2024 7:18 AM [facility] NRBC Absolute 0.00 <0.10 K/mcL LAB HEMETOLOGY METHOD 06/21/2024 7:18 AM [facility] Neutrophils Relative 73.1 % LAB HEMETOLOGY METHOD 06/21/2024 7:18 AM [facility] Lymphocytes Relative 15.9 % LAB HEMETOLOGY METHOD 06/21/2024 7:18 AM EDT [facility] Monocytes Relative 7.2 % LAB HEMETOLOGY METHOD 06/21/2024 7:18 AM EDT [facility] Eosinophils Relative 3.0 % LAB HEMETOLOGY METHOD 06/21/2024 7:18 AM [facility] Basophils Relative 0.3 % LAB HEMETOLOGY METHOD 06/21/2024 7:18 AM EDT [facility] Immature Granulocytes Relative 0.5 % LAB HEMETOLOGY METHOD 06/21/2024 7:18 AM EDT [facility] Neutrophils Absolute 8.59(H) 1.50 - 7.00 K/mcL LAB HEMETOLOGY METHOD 06/21/2024 7:18 AM [facility] Lymphocytes Absolute 1.86 1.00 - 5.00 K/mcL LAB HEMETOLOGY METHOD 06/21/2024 7:18 AM [facility] Monocytes Absolute 0.84 0.20 - 1.00 K/mcL LAB HEMETOLOGY METHOD 06/21/2024 7:18 AM [facility] Eosinophils Absolute 0.35 0.00 - 0.50 K/mcL LAB HEMETOLOGY METHOD 06/21/2024 7:18 AM [facility] Basophils Absolute 0.03 0.00 - 0.20 K/mcL LAB HEMETOLOGY METHOD 06/21/2024 7:18 AM [facility] Immature Granulocytes Absolute 0.06(H) 0.00 - 0.03 K/mcL LAB HEMETOLOGY METHOD 06/21/2024 7:18 AM [facility] Blood Venous blood specimen / Unknown 06/21/2024 6:15 AM EDT 06/21/2024 7:13 AM EDT us Hilario Blank MD LAB BLOOD ORDERABLES Final Resul t [facility] [address] [place] [address], [place] [phone] * Thyroid stimulating hormone (06/21/2024 6:15 AM EDT) TSH 1.74 0.40 - 4.00 mcIU/mL LAB CHEMISTRY METHOD 06/21/2024 10:17 AM EDT [facility] Blood Venous blood specimen / Unknown 06/21/2024 6:15 AM EDT 06/21/2024 7:13 AM EDT us Hilario Blank MD LAB BLOOD ORDERABLES Final Resul t Performing Organization Address City/[facility]/ZIP Co de Phone Number [facility] [address] [place] [address], [place] [phone] * (ABNORMAL) Hemoglobin A1c (06/21/2024 6:15 AM EDT) Only the most recent of2 resultswithin the time period is included. Hemoglobin A1C 7.6(H) <6.5 % LAB CHEMISTRY METHOD 06/21/2024 12:40 PM EDT [facility] Mean Bld Glu Estim. 171 mg/dL LAB CHEMISTRY METHOD 06/21/2024 12:40 PM EDT [facility] Blood Venous blood specimen / Unknown 06/21/2024 6:15 AM EDT 06/21/2024 7:13 AM EDT us Hilario Blank MD LAB BLOOD ORDERABLES Final Resul t [facility] [address] [place] [address], [place] [phone] * [place] level (06/21/2024 6:15 AM EDT) [place] Level 0.8 0.6 - 1.2 mEq/L LAB CHEMISTRY METHOD 06/21/2024 8:01 AM [facility] Blood Venous blood specimen / Unknown 06/21/2024 6:15 AM EDT 06/21/2024 7:13 AM EDT us Hilario Blank MD LAB BLOOD ORDERABLES Final Resul t [facility] [address] [place] [address], * (ABNORMAL) Comprehensive metabolic panel (06/21/2024 6:15 AM EDT) Only the most recent of2 resultswithin the time period is included. Sodium 134 133 - 145 mmol/L LAB CHEMISTRY METHOD 06/21/2024 8:06 AM [facility] Potassium 4.2 3.5 - 5.5 mmol/L LAB CHEMISTRY METHOD 06/21/2024 8:06 AM [facility] Chloride 97 96 - 110 mmol/L LAB CHEMISTRY METHOD 06/21/2024 8:06 AM [facility] CO2 32 21 - 32 mmol/L LAB CHEMISTRY METHOD 06/21/2024 8:06 AM [facility] Anion Gap 5 3 - 11 LAB CHEMISTRY METHOD 06/21/2024 8:06 AM [facility] Glucose 179(H) 70 - 100 mg/dL LAB CHEMISTRY METHOD 06/21/2024 8:06 AM [facility] BUN 14 5 - 25 mg/dL LAB CHEMISTRY METHOD 06/21/2024 8:06 AM [facility] Creatinine 0.94 0.70 - 1.30 mg/dL LAB CHEMISTRY METHOD 06/21/2024 8:06 AM [facility] eGFR 90 >=60 mL/min/1. 73m2 LAB CHEMISTRY METHOD 06/21/2024 8:06 AM [facility] Comment:Calculation based on the Chronic Kidney Disease Epidemiology Collaboration (CKD-EPI) equation refit without adjustment for race. BUN/Creatinine Ratio 14.9 LAB CHEMISTRY METHOD 06/21/2024 8:06 AM [facility] Calcium 8.6 8.5 - 10.5 mg/dL LAB CHEMISTRY METHOD 06/21/2024 8:06 AM [facility] AST (SGOT) 13 10 - 42 unit/L LAB CHEMISTRY METHOD 06/21/2024 8:06 AM [facility] ALT (SGPT) 22 10 - 60 unit/L LAB CHEMISTRY METHOD 06/21/2024 8:06 AM [facility] Alkaline Phosphatase 101 42 - 121 unit/L LAB CHEMISTRY METHOD 06/21/2024 8:06 AM [facility] Total Protein 6.8 6.0 - 8.0 g/dL LAB CHEMISTRY METHOD 06/21/2024 8:06 AM [facility] Albumin 3.0(L) 3.2 - 5.0 g/dL LAB CHEMISTRY METHOD 06/21/2024 8:06 AM [facility] Total Bilirubin 0.3 0.0 - 1.4 mg/dL LAB CHEMISTRY METHOD 06/21/2024 8:06 AM [facility] Blood Venous blood specimen / Unknown 06/21/2024 6:15 AM EDT 06/21/2024 7:13 AM EDT us Hilario Blank MD LAB BLOOD ORDERABLES Final Resul t [facility] [address] [place] [address], * Lipid panel with reflex to direct LDL (02/10/2024 6:10 AM EST) Cholesterol 138 0 - 200 mg/dL LAB CHEMISTRY METHOD 02/10/2024 8:23 AM EST [facility] Triglycerides 119 0 - 150 mg/dL LAB CHEMISTRY METHOD 02/10/2024 8:23 AM EST [facility] HDL 42 >=40 mg/dL LAB CHEMISTRY METHOD 02/10/2024 8:23 AM EST [facility] LDL Calculated 72 0 - 100 mg/dL LAB CHEMISTRY METHOD 02/10/2024 8:23 AM [facility] VLDL Cholesterol Rafael 23.8 mg/dL LAB CHEMISTRY METHOD 02/10/2024 8:23 AM [facility] Non HDL Chol. (LDL+VLDL) 96 <145 mg/dL LAB CHEMISTRY METHOD 02/10/2024 8:23 AM [facility] Chol/HDL Ratio 3.3 0.0 - 4.4 LAB CHEMISTRY METHOD 02/10/2024 8:23 AM [facility] Blood Venous blood specimen / Unknown 02/10/2024 6:10 AM EST 02/10/2024 7:38 AM EST us Hilario Blank MD LAB BLOOD ORDERABLES Final Resul t [facility] [address] [place] [address], from Last 3 Months or Most Recently Relevant to Health Maintenance Insurance [facility] MEDICARE Care Teams Trailer Body Assembler Relationship Specialty Start Date End Date Hilario Blank MD [address] [place] [address] [address] DARYL Mcdaniel PCP - General Internal Medicine 05/13/24
[2024-07-08 14:59] LABS: Appearance Urine Clear; Color Urine Yellow; Glucose Urine UA Negative (Negative); Leukocyte Esterase Urine Trace (Negative); Nitrite Urine Negative (Negative); PH 5.5 (5.0-9.0); Specific Gravity - Urine 1.015 (1.005-1.025); UMIC TRIGGER UACC YES; Urine Blood Negative (Negative); Urine Ketones Negative (Negative); Urine Protein 100 (2+) mg/dL (Neg-Trace)
--- NOTE | 2024-07-08 14:59 | PC.NURSE ---
Pt arrived to ED via EMS coming from [facility] with c/o SOB and AMS Per EMS o2 Sats in the 70's on arrival and Pt is not responding to verbal commands. On arrival, Pt is ubtunded with sats in the 70's on RA. VSS Pt intubated at 1356: size 8 and 24 at the lip. OG tube placed Xray to bedside for imaging. Temp sensing samuels cath placed @ 1420. NS stopped per verbal request of Pharmacoepidemiologist. RN to RN report completed with JAIRON Cordero in ICU Consuelo given the opportunity for questions and all questions answered to satisfaction. Pt brought to CT by this RN, potato peeler and RT. Pt then transported to ICU by this RN, potato peeler and RT. Care of Pt relenquished to COMMERCIAL REAL ESTATE APPRAISERJAIRON Fuchs and Consuelo.
--- NOTE | 2024-07-08 15:00 | PM.SEPBOLA4 ---
Sepsis Bolus Exclusion Sepsis Bolus Exclusion CHF/Renal Failure Date of Occurrence: 07/08/24 Time of Occurrence:: 14:30 This patient met severe sepsis criteria due to the following condition(s):: Documentation of septic shock In my clinical judgement the administration of 30 ml/kg of crystalloid would be detrimental to this patient due to the patient's following conditions:: Concern for fluid overload Other (must be specific):: hypoxic respiratory failure in the setting of COPD possible heart failure Replace the 30 mls/kg with (Zero amount not acceptable and all fluids for severe sepsis must be given at GREATER than 125 mls/hr) *Note: One of the coffey must be documented
[2024-07-08 15:01] LABS: ABG Base Excess 4.3 mmol/L; ABG HCO3 30 mmol/L (22-26); ABG pCO2 48 mmHg (32-45); ABG pH 7.39 (7.35-7.45); ABG pO2 356 mmHg (83-108)
[2024-07-08 15:22] LABS: Phosphorus 4.6 mg/dL (2.7-4.5)
[2024-07-08 15:45] LABS: Bacteria Urine None Seen (None Seen); RBC Urine 0-2 /HPF (0-2); Squamous Epithelial Cell Urine 0-2 /HPF (0-2); UACC Culture Trigger YES
[2024-07-08] MEDS: fentaNYL citrate/NS 1,000 MCG/100 ML PLAST..BAG 5 MCG IVCONT (15:48)
[2024-07-08] MEDS: methylPREDNISolone Sod Succ 40 MG/ML VIAL IVPUSH (15:49)
[2024-07-08] MEDS: Chlorhexidine Gluc Oral Rinse 15 ML MOUTHWASH BUCCAL ×2 (15:49→23:18)
[2024-07-08] MEDS: Enoxaparin Sodium 40 MG/0.4 ML SYRINGE SUBCUT (15:49)
[2024-07-08] MEDS: Pantoprazole Sodium 40 MG/10 ML VIAL IVPUSH (15:50)
--- NOTE | 2024-07-08 16:10 | PHA.MEDREC ---
Addendum entered by Chloe Baxter [facility] 07/08/24 16:15: REVIEWED Original Note: Pharmacy Consult ? Medication Reconciliation Pharmacy has completed the medication reconciliation. Utilized list from [facility].
[2024-07-08] MEDS: Norepinephrine Bitartrate/D5W 8 MG/250 ML PLAST..BAG 11.55 MG IVCONT (17:00)
[2024-07-08] MEDS: Ketamine HCl 500 MG in 0.9 % Sodium Chloride 250 ML 18.85 MG IVCONT (17:14)
[2024-07-08 18:01] LABS: MRSA Nasal PCR POSITIVE (Negative); SA Nasal PCR POSITIVE (Negative)
--- NOTE | 2024-07-08 18:39 | PC.NURSE ---
Assumed care at approx 1530. Pt arrived from ED intubated and with propofol drip running at 20 mcg/kg/hr. Pt moving limbs, coughing, dyssynchronous with vent. Sedation adjusted. At approx 1645, pt?s blood pressures noted to be low. MD made aware. Levophed drip started. At approx 1700, pt?s HR low. MD made aware. Propofol titrated and ketamine drip started. BPs and HR improved. See MAR and assessments for details. Pt repositioned q2hr as tolerated. Bed locked and in lowest position. Alarm on.
--- NOTE | 2024-07-08 19:12 | HO.SKINPHOTO ---
Location: Category: Stage: Length: Width: Depth: cm Location: Category: Stage: Length: Width: Depth: cm Location: Category: Stage: Length: Width: Depth: cm Location: Category: Stage: Length: Width: Depth: cm Location: Category: Stage: Length: Width: Depth: cm Location: Category: Stage: Length: Width: Depth: cm
[2024-07-08 21:42] LABS: VBG Base Excess 2.6 mmol/L; VBG HCO3 26 mmol/L (22-26); VBG pCO2 35 mmHg; VBG pH 7.46 (7.32-7.43); VBG pO2 172 mmHg
[2024-07-08 21:44] LABS: Anion Gap 12 (12-20); Blood Urea Nitrogen 33 mg/dL (9-16); Calcium 8.5 mg/dL (8.4-10.2); Carbon Dioxide 27 mmol/L (22-29); Chloride 104 mmol/L (96-108); Creatinine Clr Calc Pharmacy 70.1; Estimated Glomerular Filt Rate 55; Glucose Random 137 mg/dL (60-115); Magnesium 2.3 mg/dL (1.6-2.6); Phosphorus 2.6 mg/dL (2.7-4.5); Potassium 5.4 mmol/L (3.3-5.1); Sodium 138 mmol/L (135-145)
[2024-07-08] MEDS: propofoL 1,000 MG/100 ML VIAL 22.18 MG IVCONT (21:49)
[2024-07-08 22:06] LABS: Venous Blood Gas Refer to POC result
[2024-07-08] MEDS: Furosemide 20 MG/2 ML VIAL IVPUSH (22:24)
[2024-07-08] MEDS: fentaNYL citrate/NS 1,000 MCG/100 ML PLAST..BAG 15 MCG IVCONT (23:12)
[2024-07-09] VITALS (40 sets, daily range): BP systolic 91–148; BP diastolic 26–65; PULSE 42–76; RESP 16–20; TEMP 34.8–39.6; O2SAT 91–99; BMI 44.3
[2024-07-09] MEDS: Linezolid/D5W 600 MG/300 ML PIGGYBACK 300 MG IV ×2 (01:39→12:27)
[2024-07-09] MEDS: propofoL 1,000 MG/100 ML VIAL 7.39 MG IVCONT (03:12)
[2024-07-09] MEDS: Ketamine HCl 500 MG in 0.9 % Sodium Chloride 250 ML 18.85 MG IVCONT ×2 (03:29→16:22)
[2024-07-09 04:52] LABS: VBG Base Excess 8.1 mmol/L; VBG HCO3 34 mmol/L (22-26); VBG pCO2 51 mmHg; VBG pH 7.42 (7.32-7.43); VBG pO2 53 mmHg
[2024-07-09] MEDS: fentaNYL citrate/NS 1,000 MCG/100 ML PLAST..BAG 15 MCG IVCONT ×3 (05:22→18:41)
[2024-07-09 05:41] LABS: Alanine Aminotransferase 25 U/L (0-40); Albumin Level 3.2 g/dL (3.5-5.0); Alkaline Phosphatase 135 U/L (39-117); Anion Gap 14 (12-20); Aspartate Amino Transferase 44 U/L (5-37); Bilirubin Total 1.1 mg/dL (0.0-1.0); Blood Urea Nitrogen 31 mg/dL (9-16); Calcium 8.7 mg/dL (8.4-10.2); Carbon Dioxide 28 mmol/L (22-29); Chloride 102 mmol/L (96-108); Creatinine Clr Calc Pharmacy 68.4; Estimated Glomerular Filt Rate 53; Glucose Random 131 mg/dL (60-115); Magnesium 2.3 mg/dL (1.6-2.6); Phosphorus 3.3 mg/dL (2.7-4.5); Potassium 5.7 mmol/L (3.3-5.1); Sodium 138 mmol/L (135-145); Total Protein 7.3 g/dL (6.5-8.0)
[2024-07-09] MEDS: Pantoprazole Sodium 40 MG/10 ML VIAL IVPUSH (05:48)
[2024-07-09] MEDS: Sodium Zirconium Cyclosilicate 10 GM POWD.PACK PO (06:07)
[2024-07-09 06:18] LABS: Basophils Absolute Auto 0.1 X10*3/uL (0.0-0.2); Basophils Percent Auto 0.2 % (0-2); Eosinophils Absolute Auto 0.1 X10*3/uL (0.0-0.4); Eosinophils Percent Auto 0.2 % (0-4); Hematocrit 47.8 % (42.0-52.0); Hemoglobin 14.6 g/dl (14.0-18.0); Imm Gran Pct Auto 0.8 % (0.0-0.4); Lymphocytes Absolute Auto 1.3 X10*3/uL (1.2-4.9); Lymphocytes Percent Auto 5.2 % (20-40); MANUAL DIFF FLAG SCAN; Mean Corpuscular HGB Conc 30.5 g/dl (31.0-36.0); Mean Corpuscular Hemoglobin 29.6 pg (27.0-33.0); Mean Platelet Volume 10.5 fL (9.4-12.4); Monocytes Absolute Auto 1.2 X10*3/uL (0.1-1.2); Monocytes Percent Auto 4.7 % (2-11); Neutrophils Percent Auto 88.9 % (45-73); Platelet Count 254 X10*3/uL (160-400); Red Blood Count 4.93 X10*6/uL (4.60-5.80); Red Cell Distribution Width 15.5 % (11.0-16.0); SCAN SMEAR FLAG 1; White Blood Count 24.8 X10*3/uL (4.8-10.8)
[2024-07-09 06:21] LABS: Venous Blood Gas Refer to POC result
--- NOTE | 2024-07-09 07:00 | CA_ITS ---
Transthoracic Echocardiogram Patient (Last, First, Middle): Orlando Gilbert, Gender: Male Date of : 1960 Age: 63 Procedure Date: 07/09/2024 Procedure Type: Transthoracic Echocardiogram Location: ICU Height: 167.64 cm Weight: 124.29 kg BSA: 2.29 m2 Heart Rate: bpm BP: 117 / 52 mmHg Director Financial Systems: TO Referring MD: Lindsay Ortez NP Symptoms: pericardial effusion Study Quality: Technically Difficult/Contrast Conclusions: - 1. Normal LV ejection fraction of 60 65% with pseudonormal filling pattern 2. Dilated right ventricle with preserved systolic function by TAPSE 3. Mild biatrial enlargement 4. RV systolic pressure appears to be elevated although can not be accurately estimated due to indeterminate right atrial pressures as patient is on positive pressure ventilation 5. Small to moderate pericardial effusion more prominent near the left ventricle without clear evidence of cardiac tamponade Findings Procedure Information Contrast agent, definity, is being given per protocol without apparent complications. Left Ventricle Normal left ventricular size, thickness, and systolic function. The visually estimated ejection fraction is between 60-65%. Spectral Doppler is indicative of a pseudonormal filling pattern. Right Ventricle Moderately increased right ventricular cavity size. There is normal right ventricular systolic function. Atria The left atrium is mildly dilated. Interatrial shunt cannot be excluded. The right atrium is mildly dilated. Aortic Valve The aortic valve was not well visualized. There is no aortic valve stenosis. There is no aortic valve regurgitation. Mitral Valve There is mild anterior mitral leaflet thickening. There is mild mitral annular calcification. There is trace mitral valve regurgitation. There is no mitral valve stenosis. Pulmonic Valve The pulmonic valve was not well visualized. Tricuspid Valve Likely normal tricuspid valve structure and function. There is mild tricuspid valve regurgitation. The right ventricular systolic pressure is not calculated. Indeterminate right atrial pressure. Great Vessels The pulmonary artery was not well visualized. There is no dilatation of the ascending aorta measuring 3.30 cm. Venous The inferior vena cava is moderately dilated and does not collapse with inspiration. patient on positive mechanical ventilation unclear right atrial pressures, these could be elevated Pericardium/Pleural [id number] pericardial effusion, more prominent near the left ventricle. No clear evidence of cardiac tamponade Prior Study Comparison Changes noted compared to prior study dated: 03/16/2024. [id number] pericardial effusion in his noted on this study Measurements 2D Linear Measurements IVSd: 0.94 0.6-0.9/0.6-1.0 cm LVIDd: 4.75 3.9-5.3/4.2-5.9 cm LVIDd Index: 2.07 2.4-3.2/2.2-3.1 cm/m2 LVIDs: 3.07 2.0-3.6 cm LVPWd: 0.95 0.7-1.1 cm LV Mass: 192.46 67-162/88-224 g LV Mass Index: 84.04 43-95/49-115 g/m2 LVOT Diam: 2.50 3.0+(-)1.3 cm 2D Systolic Function EF 4C: 66.10 >55% Mitral Valve MV Pk E: 0.60 MV PK A: 0.27 MV Decel Time: 278.00 E/A: 2.20 E'Lateral: 8.38 E'Medial: 4.57 E/E' Med: 13.00 E/E' Lat: 7.10 PHT: 81.00 MVA PHT: 2.72 Decel Sierra: 2.14 Aortic Valve AoV Pk Aki: 1.24 AoV Mn Aki: 0.87 AoV VTI: 0.26 AoV Pk Grad: 6.00 Aov Mn Grad: 3.00 TANIKA Cont.VTI: 4.00 LVOT LVOT Pk Aki: 0.88 LVOT Mn Aki: 0.61 LVOT VTI: 0.21 LVOT Pk Grad: 3.00 LVOT Mn Grad: 2.00 LVOT Diam: 2.50 LVOT Area: 4.91 Diastolic Function MV Pk E: 0.60 MV Pk A: 0.27 E/A: 2.20 E'Medial: 4.57 E/E' Med: 13.00 E' Laterial: 8.38 E/E' Lat: 7.10 Right Ventricle TAPSE (mm): 24.40 TVS' Aki: 13.10 Tricuspid Valve TR Pk Aki: 3.22 TR Pk Grad: 41.00 RA Press: 15.00 Great Vessels Aorta Sinus of Valsalva: 3.37 2.0-3.[address] Ridge: 2.66 1.7-3.4 cm Ao Asc: 3.30 2.1-3.4 cm Updated in Other Vendor System with Status of Final Shawn Haji MD electronically signed on 07/09/2024 11:15:27 AM with status of Final
[2024-07-09 07:21] LABS: SLIDE REVIEW VERIFIED
[2024-07-09] MEDS: cefEPime HCl/D5W 2 GM/50 ML PIGGYBACK IV ×3 (07:38→22:56)
[2024-07-09] MEDS: Chlorhexidine Gluc Oral Rinse 15 ML MOUTHWASH BUCCAL ×3 (07:38→22:55)
--- NOTE | 2024-07-09 08:29 | P.CDIM_ITS ---
PROVIDER RESPONSE TEXT: To clarify, the appropriate diagnosis supported by the clinical indicators: Other (explain): not sure QUERY TEXT: PHYSICIAN'S DOCUMENTATION REQUEST Date of Query: 07/09/2024 07:04 AM EDT Patient Name: Orlando Gilbert Admit Date: 07/08/2024 Dear Emmett Comer MD, A review of the medical record indicates additional documentation may be needed. Please review below and update the documentation accordingly. Clinical Indicators: no PMH CHF CXR: fluid in the right minor fissure CT chest: heart is enlarged short of breath, respiratory rate 26, intubated and on vent bolus exclusion for sepsis due to CHF Lasix IVP 20 mg once Please provide further specificity regarding the most likely type and acuity of CHF you are evaluatin g, treating, or monitoring. Acute Systolic Acute Diastolic Acute Combined Systolic/Diastolic Other (explain) Clinically unable to determine (explain) Thank you, Francisca Infante RN Use of terms such as suspected, likely, concern for, or probable (associated with a specific diagnosi s that is being evaluated, monitored, or treated as if it exists) are acceptable and can be coded in the inpatient se tting, when documented at the time of discharge. Please use your independent medical judgment in providing your response. THIS QUERY IS PART OF THE PERMANENT MEDICAL RECORD
--- NOTE | 2024-07-09 08:29 | P.CDIM_ITS ---
PROVIDER RESPONSE TEXT: To clarify, the appropriate diagnosis supported by the clinical indicators: Obesity Due to excess calories QUERY TEXT: PHYSICIAN'S DOCUMENTATION REQUEST Date of Query: 07/09/2024 07:08 AM EDT Patient Name: Orlando Gilbert Admit Date: 07/08/2024 Dear Emmett Comer MD, A review of the medical record indicates additional documentation may be needed. Please review below and update the documentation accordingly. Clinical Indicators: Height: ( ) 5'6 Weight: ( ) 124.4 kg BMI: ( ) 44.3 Other Clinical Notes Supporting Significance of the BMI: No Nutritional Assessment by RD noted If possible, please provide an associated diagnosis related to the abnormal BMI, such as: Overweight Obesity Due to excess calories Obesity Drug induced Obesity Due to other cause Specify the other cause Severe or Morbid Obesity With alveolar hypoventilation Severe or Morbid Obesity Without alveolar hypoventilation BMI is not significant Other (explain) Clinically unable to determine (explain) Thank you, Francisca Infante RN Use of terms such as suspected, likely, concern for, or probable (associated with a specific diagnosi s that is being evaluated, monitored, or treated as if it exists) are acceptable and can be coded in the inpatient se tting, when documented at the time of discharge. Please use your independent medical judgment in providing your response. THIS QUERY IS PART OF THE PERMANENT MEDICAL RECORD
--- NOTE | 2024-07-09 08:56 | P.PNCC_ITS ---
Subjective Subjective Date of Service: 07/09/24 Interval History: Remains on ventilator support this morning On ketamine and fentanyl for analgesia and sedation Critical Care Time (minutes): 35 Physical Exam 2 Vital Signs: Vital Signs: Last Vital Signs Temp 101.8 F H 07/09/24 08:00 Pulse 55 07/09/24 08:00 Resp 18 07/09/24 08:00 BP 112/62 07/09/24 08:00 Pulse Ox 95 07/09/24 08:00 O2 Del Method Mechanical Ventil ation 07/09/24 08:00 O2 Flow Rate 5 07/08/24 13:50 FiO2 40 07/09/24 08:00 BMI result Body Mass Index 44.3 General: Elderly male in acute distress, chronically ill appearing and tired appearing Nutritional Appearance: well nourished and overweight Eyes: appearance normal, both eyes and all related structures; Alignment and Position: alignment normal and position normal Neck: No lymphadenopathy, no thyromegaly Resp: bilateral air entry equal, crackles heard in the left lung Cardio: Regular rate, regular rhythm; Heart sounds: S1 normal heart sound present and S2 normal heart sound present GI: soft, nontender, no guarding, no hepatosplenomegaly : bladder normal to inspection, bladder normal to palpation, no renal angle tenderness Skin: no rashes or lesions noted and elasticity normal Neuro: Neurological examination are possible as patient is sedated Objective Data Labs 07/09/24 05:52 07/09/24 04:46 Labs: Laboratory Results - last 24 hr 07/08/24 07/08/24 07/08/24 13:44 13:49 14:07 WBC 17.0 H RBC 5.05 Hgb 15.0 Hct 51.0 D MCV 101.0 H MCH 29.7 MCHC 29.4 L RDW 15.6 Plt Count 215 MPV 10.5 Immature Gran % (Auto) 0.5 H Neut % (Auto) 83.1 H Lymph % (Auto) 9.7 L [place] % (Auto) 6.0 Eos % (Auto) 0.5 Baso % (Auto) 0.2 Lymph # (Auto) 1.7 [place] # (Auto) 1.0 Eos # (Auto) 0.1 Baso # (Auto) 0.0 Abs Immat Gran (auto) 0.08 H Absolute Neuts (auto) 14.2 H Absolute Nucleated RBC 0.000 Nucleated RBC % (auto) 0.0 Smear Tech's Comments PT 12.3 INR 1.1 O2 Saturation ABG pH at Pt Temp ABG pCO2 at Pt Temp ABG pO2 at Pt Temp ABG HCO3 ABG Base Excess (Actual) VBG pH 7.23 L VBG pCO2 79 VBG pO2 69 VBG HCO3 34 H VBG O2 Saturation 89.0 VBG Base Excess 3.4 Sodium 140 Potassium 5.4 H D Chloride 103 Carbon Dioxide 32 H Anion Gap 10 L BUN 30 H Creatinine 1.34 Estim Creat Clear Calc 68.0 Estimated GFR 53 Random Glucose 105 Lactic Acid 0.9 Calcium 8.9 Phosphorus 4.6 H Magnesium 2.6 Total Bilirubin 0.4 AST 27 ALT 34 Alkaline Phosphatase 156 H Troponin I High Sens 47.7 H D Total Protein 7.7 Albumin 3.7 Urine Color Urine Appearance Urine pH Ur Specific [place] Urine Protein Urine Glucose (UA) Urine Ketones Urine Blood Urine Nitrite Ur Leukocyte Esterase Urine RBC Urine WBC Ur Squamous Epith Cells Urine Bacteria Hyaline Casts Nasal Screen MRSA (PCR) Nasal S. aureus Screen Nasal MRSA/S.aureus Interp Influenza Type A (PCR) NEGATIVE Influenza Type B (PCR) NEGATIVE RSV RNA Qual (PCR) NEGATIVE SARS-CoV-2 RNA (RT-PCR) NEGATIVE 07/08/24 07/08/24 07/08/24 14:48 14:58 16:31 WBC RBC Hgb Hct MCV MCH MCHC RDW Plt Count MPV Immature Gran % (Auto) Neut % (Auto) Lymph % (Auto) [place] % (Auto) Eos % (Auto) Baso % (Auto) Lymph # (Auto) [place] # (Auto) Eos # (Auto) Baso # (Auto) Abs Immat Gran (auto) Absolute Neuts (auto) Absolute Nucleated RBC Nucleated RBC % (auto) Smear Tech's Comments PT INR O2 Saturation 100.0 ABG pH at Pt Temp 7.39 ABG pCO2 at Pt Temp 48 H ABG pO2 at Pt Temp 356 H ABG HCO3 30 H ABG Base Excess (Actual) 4.3 VBG pH VBG pCO2 VBG pO2 VBG HCO3 VBG O2 Saturation VBG Base Excess Sodium Potassium Chloride Carbon Dioxide Anion Gap BUN Creatinine Estim Creat Clear Calc Estimated GFR Random Glucose Lactic Acid Calcium Phosphorus Magnesium Total Bilirubin AST ALT Alkaline Phosphatase Troponin I High Sens Total Protein Albumin Urine Color Yellow Urine Appearance Clear Urine pH 5.5 Ur Specific [place] 1.015 Urine Protein 100 (2+) H Urine Glucose (UA) Negative Urine Ketones Negative Urine Blood Negative Urine Nitrite Negative Ur Leukocyte Esterase Trace H Urine RBC 0-2 Urine WBC 6-10 Ur Squamous Epith Cells 0-2 Urine Bacteria None Seen Hyaline Casts 6-10 Nasal Screen MRSA (PCR) POSITIVE A Nasal S. aureus Screen POSITIVE A Nasal MRSA/S.aureus Interp SEE NOTE Influenza Type A (PCR) Influenza Type B (PCR) RSV RNA Qual (PCR) SARS-CoV-2 RNA (RT-PCR) 07/08/24 07/08/24 07/09/24 21:20 21:28 04:46 WBC RBC Hgb Hct MCV MCH MCHC RDW Plt Count MPV Immature Gran % (Auto) Neut % (Auto) Lymph % (Auto) [place] % (Auto) Eos % (Auto) Baso % (Auto) Lymph # (Auto) [place] # (Auto) Eos # (Auto) Baso # (Auto) Abs Immat Gran (auto) Absolute Neuts (auto) Absolute Nucleated RBC Nucleated RBC % (auto) Smear Tech's Comments PT INR O2 Saturation ABG pH at Pt Temp ABG pCO2 at Pt Temp ABG pO2 at Pt Temp ABG HCO3 ABG Base Excess (Actual) VBG pH 7.46 H VBG pCO2 35 VBG pO2 172 VBG HCO3 26 VBG O2 Saturation 99.0 VBG Base Excess 2.6 Sodium 138 138 Potassium 5.4 H 5.7 H Chloride 104 102 Carbon Dioxide 27 28 Anion Gap 12 14 BUN 33 H 31 H Creatinine 1.30 1.34 Estim Creat Clear Calc 70.1 68.4 Estimated GFR 55 53 Random Glucose 137 H 131 H Lactic Acid Calcium 8.5 8.7 Phosphorus 2.6 L 3.3 Magnesium 2.3 2.3 Total Bilirubin 1.1 H AST 44 H ALT 25 Alkaline Phosphatase 135 H Troponin I High Sens Total Protein 7.3 Albumin 3.2 L Urine Color Urine Appearance Urine pH Ur Specific [place] Urine Protein Urine Glucose (UA) Urine Ketones Urine Blood Urine Nitrite Ur Leukocyte Esterase Urine RBC Urine WBC Ur Squamous Epith Cells Urine Bacteria Hyaline Casts Nasal Screen MRSA (PCR) Nasal S. aureus Screen Nasal MRSA/S.aureus Interp Influenza Type A (PCR) Influenza Type B (PCR) RSV RNA Qual (PCR) SARS-CoV-2 RNA (RT-PCR) 07/09/24 07/09/24 04:48 05:52 WBC 24.8 H RBC 4.93 Hgb 14.6 Hct 47.8 MCV 97.0 MCH 29.6 MCHC 30.5 L RDW 15.5 Plt Count 254 MPV 10.5 Immature Gran % (Auto) 0.8 H Neut % (Auto) 88.9 H Lymph % (Auto) 5.2 L [place] % (Auto) 4.7 Eos % (Auto) 0.2 Baso % (Auto) 0.2 Lymph # (Auto) 1.3 [place] # (Auto) 1.2 Eos # (Auto) 0.1 Baso # (Auto) 0.1 Abs Immat Gran (auto) 0.20 H Absolute Neuts (auto) 22.0 H Absolute Nucleated RBC 0.000 Nucleated RBC % (auto) 0.0 Smear Tech's Comments VERIFIED PT INR O2 Saturation ABG pH at Pt Temp ABG pCO2 at Pt Temp ABG pO2 at Pt Temp ABG HCO3 ABG Base Excess (Actual) VBG pH 7.42 VBG pCO2 51 VBG pO2 53 VBG HCO3 34 H VBG O2 Saturation 87.0 VBG Base Excess 8.1 Sodium Potassium Chloride Carbon Dioxide Anion Gap BUN Creatinine Estim Creat Clear Calc Estimated GFR Random Glucose Lactic Acid Calcium Phosphorus Magnesium Total Bilirubin AST ALT Alkaline Phosphatase Troponin I High Sens Total Protein Albumin Urine Color Urine Appearance Urine pH Ur Specific [place] Urine Protein Urine Glucose (UA) Urine Ketones Urine Blood Urine Nitrite Ur Leukocyte Esterase Urine RBC Urine WBC Ur Squamous Epith Cells Urine Bacteria Hyaline Casts Nasal Screen MRSA (PCR) Nasal S. aureus Screen Nasal MRSA/S.aureus Interp Influenza Type A (PCR) Influenza Type B (PCR) RSV RNA Qual (PCR) SARS-CoV-2 RNA (RT-PCR) Microbiology Microbiology Results: Microbiology 07/08/24 14:07 Blood - Venous Blood Culture - Preliminary Prelim: GPC Gram Stain only Progress Note: A&P Assessment and plan (1) TBI (traumatic brain injury): Status: Acute (2) Acute exacerbation of chronic obstructive pulmonary disease (COPD): Status: Acute (3) Respiratory failure with hypoxia and hypercapnia: Status: Acute (4) COPD (chronic obstructive pulmonary disease): Status: Acute (5) Acute respiratory failure with hypercapnia: Status: Acute Plan Neuro: Acute encephalopathy possibly due to metabolic encephalopathy On ketamine for sedation, fentanyl for analgesia- we will wean sedation and analgesia for possible weaning from ventilator Close neurological status monitoring in the ICU every hour Cardiac: Cardiogenic shock: secondary to postive pressure vent, on levophed support will get TTE Respiratory: Acute hypoxemic respiratory failure as the patient ran out of oxygen in his oxygen tank, has underlying COPD we will treat as a COPD exacerbation Currently on ventilator support On PRVC mode FiO2 40%, PEEP 5, TV 400, RR 20; we will do a bronchoscopy on him to look at the cause for left lung collapse at if possible get biopsies. Peak pressures and plateau pressures are under the curve Ventilator management bundle with head end elevation, aspiration precaution, chlorhexidine mouthwash, daily awakening trials, daily spontaneous breathing trials bronchodilators [id number], we will add steroids for COPD exacerbation GI: We will start on tube feeds Renal: renal function normal We will closely monitor I's and O's Avoid nephrotoxic medications Heme: Chronic anemia, closely monitor H&H, transfuse for hemoglobin less than 7 grams/deciliter Endocrine: Blood sugars under control Sliding scale insulin as needed Infectious disease: MRSA nares positive, blood culture positive for Gram-positive cocci x1 On cefepime and linezolid Musculoskeletal: Decubitus ulcer prevention protocol Lines: peripheral Prophylaxis: Lovenox, pantoprazole Patient is critically ill with multiple organ failures including acute encephalopathy, cardiogenic shock on vasopressor, respiratory failure on ventilator support; critical care time spent is about 60 minutes on ventilator management, sedation management, vasopressor management, close hemodynamic monitoring and this time is excluding any procedural time. Quality Stroke Does the patient have a stroke diagnosis?: No VTE Prior VTE?: No VTE Risk Level:: Medical - moderate - high VTE Device Contraindication: N/A - Device Ordered VTE Drug Contraindication: N/A - Med Ordered
--- NOTE | 2024-07-09 09:49 | MHC.CM.PN ---
IMM DELIVERED TO SISTER/[facility]hl[facility], WHITE COPY TO BE MAILED. PT IS CURRENTLY ON VENTILATORY/PRESSOR SUPPORT IN ICU. DP: PT WILL RETURN TO [facility] VIA BLS. CM WILL CONTINUE TO FOLLOW FOR ANY CHANGE IN NEEDS/PLAN.
[2024-07-09 09:57] LABS: ABG Refer to POC result
[2024-07-09 11:28] LABS: Adenovirus PCR Not Detected (Not Detect.); Bordetella parapertussis PCR Not Detected (Not Detect.); Bordetella pertussis PCR Not Detected (Not Detect.); Chlamydia pneumoniae PCR Not Detected (Not Detect.); Coronavirus 229E PCR Not Detected (Not Detect.); Coronavirus HKU1 PCR Not Detected (Not Detect.); Coronavirus NL63 PCR Not Detected (Not Detect.); Coronavirus OC43 PCR Not Detected (Not Detect.); Human metapneumovirus PCR Not Detected (Not Detect.); Influenza A PCR Not Detected (Not Detect.); Influenza B PCR Not Detected (Not Detect.); Mycoplasma pneumoniae PCR Not Detected (Not Detect.); Parainfluenza 1 PCR Not Detected (Not Detect.); Parainfluenza 2 PCR Not Detected (Not Detect.); Parainfluenza 3 PCR Not Detected (Not Detect.); Parainfluenza 4 PCR Not Detected (Not Detect.); RSV PCR Not Detected (Not Detect.); Rhino/Enterovirus PCR Detected (Not Detect.)
[2024-07-09 11:54] LABS: Influenza A H1 PCR Not Detected (Not Detect.); Influenza A H1-2009 PCR Not Detected (Not Detect.); Influenza A H3 PCR Not Detected (Not Detect.); SARS-CoV-2 PCR Not Detected (Not Detect.)
--- NOTE | 2024-07-09 11:54 | MHC.CLN ---
CONSULT PT REQUIRES TF FOR NUTRITION SUPPORT R/T PROLONGED NPO STATUS PT IS INTUBATED AND SEDATED DISCUSSED AT ROUNDS WITH MD RUBALCAVA TO START RECOMMEND GLUCERNA AT MAX GOAL RATE 65ML/HR WITH 240ML FREE WATER FLUSHES Q 8 HRS TO PROVIDE 1560KCALS (24KCALS/KG BASED ON IBW), 65G PROTEIN (1.0G/KG), 2050ML TOTAL FREE WATER FROM FORMULA AND FLUSHES (31.5ML/KG) MONITOR TOLERANCE AND LYTES SEE ALSO CLINICAL NUTRITION ASSESSMENT
[2024-07-09] MEDS: Midazolam HCl 2 MG/2 ML VIAL 4 MG IVPUSH (12:11)
[2024-07-09] MEDS: Norepinephrine Bitartrate/D5W 8 MG/250 ML PLAST..BAG 16.17 MG IVCONT (12:20)
--- NOTE | 2024-07-09 13:07 | PC.RT ---
RT assist MD with bedside bronchoscopy. Pt was pre oxygenated @ 100% 30 mins prior. RR, HR, Spo2 and BP were monitored throughout the procedure with no issues to report. 40cc BAL was done for RLL and the LLL as was forceps biopsy in the LLL x 3. The biopsied tissue was placed in formalin and all samples were given to the nurse for citrus picker. Pt vishal prcedure well, fio2 was eaned back to his original setting of 40%.
[2024-07-09] MEDS: Enoxaparin Sodium 40 MG/0.4 ML SYRINGE SUBCUT (16:26)
--- NOTE | 2024-07-09 16:38 | W.PM.CCHP ---
Procedures Date of Service Date of Service: 07/09/24 Bronchoscopy Consent for Procedure: Emergent-no informed consent obtained Indication: atelectasis Route: endotracheal tube Monitor: EKG and pulse oximetry Findings: erythematous mucosal lesions noted in right lung, left main had external obstruction possibly and intraluminal masses were found in left lower lobe bronchus which was biopsied and sent to the lab for path Complications: none
[2024-07-09 20:47] LABS: Anion Gap 11 (12-20); Blood Urea Nitrogen 26 mg/dL (9-16); Calcium 8.3 mg/dL (8.4-10.2); Carbon Dioxide 31 mmol/L (22-29); Chloride 102 mmol/L (96-108); Creatinine Clr Calc Pharmacy 68.4; Estimated Glomerular Filt Rate 53; Glucose Random 140 mg/dL (60-115); Magnesium 2.1 mg/dL (1.6-2.6); Phosphorus 2.2 mg/dL (2.7-4.5); Potassium 4.2 mmol/L (3.3-5.1); Sodium 140 mmol/L (135-145)
[2024-07-09] MEDS: Sodium,Potassium Phosphates POWD.PACK 2 PACKET PO (21:25)
[2024-07-10] VITALS (41 sets, daily range): BP systolic 90–145; BP diastolic 38–70; PULSE 51–63; RESP 12–30; TEMP 35–39.2; O2SAT 90–98; BMI 40.0
[2024-07-10] MEDS: Linezolid/D5W 600 MG/300 ML PIGGYBACK 300 MG IV ×2 (00:42→12:45)
[2024-07-10] MEDS: fentaNYL citrate/NS 1,000 MCG/100 ML PLAST..BAG 15 MCG IVCONT ×2 (01:20→08:39)
[2024-07-10] MEDS: Norepinephrine Bitartrate/D5W 8 MG/250 ML PLAST..BAG 16.17 MG IVCONT ×2 (01:22→15:45)
[2024-07-10 05:00] LABS: VBG Base Excess 10.1 mmol/L; VBG HCO3 35 mmol/L (22-26); VBG pCO2 47 mmHg; VBG pH 7.47 (7.32-7.43); VBG pO2 72 mmHg
[2024-07-10 05:18] LABS: MANUAL DIFF FLAG NO
[2024-07-10 05:21] LABS: Basophils Percent Auto 0.1 % (0-2); Eosinophils Absolute Auto 0.4 X10*3/uL (0.0-0.4); Eosinophils Percent Auto 1.9 % (0-4); Hemoglobin 13.1 g/dl (14.0-18.0); Imm Gran Abs Auto 0.14 X10*3/uL (0.00-0.03); Imm Gran Pct Auto 0.6 % (0.0-0.4); Lymphocytes Absolute Auto 1.1 X10*3/uL (1.2-4.9); Mean Corpuscular HGB Conc 29.8 g/dl (31.0-36.0); Mean Corpuscular Hemoglobin 28.8 pg (27.0-33.0); Mean Corpuscular Volume 96.7 fL (80.0-98.0); Mean Platelet Volume 10.6 fL (9.4-12.4); Monocytes Absolute Auto 1.3 X10*3/uL (0.1-1.2); Monocytes Percent Auto 5.6 % (2-11); Neutrophils Absolute Auto 19.6 x10*3/uL (2.0-8.3); Neutrophils Percent Auto 86.8 % (45-73); Platelet Count 220 X10*3/uL (160-400); Red Blood Count 4.55 X10*6/uL (4.60-5.80); Red Cell Distribution Width 15.6 % (11.0-16.0); White Blood Count 22.6 X10*3/uL (4.8-10.8)
[2024-07-10 05:36] LABS: Alanine Aminotransferase 16 U/L (0-40); Albumin Level 2.9 g/dL (3.5-5.0); Alkaline Phosphatase 111 U/L (39-117); Anion Gap 10 (12-20); Aspartate Amino Transferase 17 U/L (5-37); Bilirubin Total 1.2 mg/dL (0.0-1.0); Blood Urea Nitrogen 23 mg/dL (9-16); Calcium 8.1 mg/dL (8.4-10.2); Carbon Dioxide 30 mmol/L (22-29); Chloride 101 mmol/L (96-108); Creatinine Clr Calc Pharmacy 66.2; Estimated Glomerular Filt Rate 55; Glucose Random 178 mg/dL (60-115); Magnesium 2.2 mg/dL (1.6-2.6); Phosphorus 2.5 mg/dL (2.7-4.5); Potassium 4.1 mmol/L (3.3-5.1); Sodium 137 mmol/L (135-145); Total Protein 6.4 g/dL (6.5-8.0)
[2024-07-10] MEDS: Ketamine HCl 500 MG in 0.9 % Sodium Chloride 250 ML 18.85 MG IVCONT (05:50)
[2024-07-10] MEDS: Pantoprazole Sodium 40 MG/10 ML VIAL IVPUSH (05:52)
[2024-07-10 06:10] LABS: Venous Blood Gas Refer to POC result
[2024-07-10] MEDS: cefEPime HCl/D5W 2 GM/50 ML PIGGYBACK IV ×3 (06:35→23:01)
[2024-07-10] MEDS: Albumin Human 25 % 100 ML IV ×2 (08:01→15:42)
[2024-07-10] MEDS: Potassium Phosphate/NS 15 MMOL/250 ML PLAST..BAG 62.5 MMOL IV ×2 (08:02→21:19)
[2024-07-10] MEDS: Chlorhexidine Gluc Oral Rinse 15 ML MOUTHWASH BUCCAL ×3 (08:02→23:01)
--- NOTE | 2024-07-10 11:26 | P.PNCC_ITS ---
Subjective Subjective Date of Service: 07/10/24 Interval History: Remains on ventilator support, no new events On ketamine for sedation, fentanyl for analgesia Critical Care Time (minutes): 35 Physical Exam 2 Vital Signs: Vital Signs: Last Vital Signs Temp 102.4 F H 07/10/24 11:00 Pulse 56 07/10/24 11:00 Resp 16 07/10/24 11:00 BP 141/70 H 07/10/24 11:00 Pulse Ox 92 07/10/24 11:00 O2 Del Method Mechanical Ventil ation 07/10/24 11:00 O2 Flow Rate 5 07/08/24 13:50 FiO2 40 07/10/24 11:00 BMI result Body Mass Index 40.0 General: Elderly male in acute distress, ill appearing and tired appearing Nutritional Appearance: well nourished and overweight Eyes: appearance normal, both eyes and all related structures; Alignment and Position: alignment normal and position normal Neck: No lymphadenopathy, no thyromegaly Resp: bilateral air entry equal, bilateral wheeze Cardio: Regular rate, regular rhythm; Heart sounds: S1 normal heart sound present and S2 normal heart sound present GI: soft, nontender, no guarding, no hepatosplenomegaly : bladder normal to inspection, bladder normal to palpation, no renal angle tenderness Skin: no rashes or lesions noted and elasticity normal Neuro: Sedated, can not do a neurological examination Objective Data Labs 07/10/24 05:00 07/10/24 05:00 Labs: Laboratory Results - last 24 hr 07/08/24 07/09/24 07/10/24 16:31 20:06 04:55 WBC RBC Hgb Hct MCV MCH MCHC RDW Plt Count MPV Immature Gran % (Auto) Neut % (Auto) Lymph % (Auto) [place] % (Auto) Eos % (Auto) Baso % (Auto) Lymph # (Auto) [place] # (Auto) Eos # (Auto) Baso # (Auto) Abs Immat Gran (auto) Absolute Neuts (auto) Absolute Nucleated RBC Nucleated RBC % (auto) VBG pH 7.47 H VBG pCO2 47 VBG pO2 72 VBG HCO3 35 H VBG O2 Saturation 97.0 VBG Base Excess 10.1 Sodium 140 Potassium 4.2 D Chloride 102 Carbon Dioxide 31 H Anion Gap 11 L BUN 26 H Creatinine 1.34 Estim Creat Clear Calc 68.4 Estimated GFR 53 Random Glucose 140 H Calcium 8.3 L Phosphorus 2.2 L Magnesium 2.1 Total Bilirubin AST ALT Alkaline Phosphatase Total Protein Albumin Respiratory Panel Harris See Note Adenovirus (Rapid PCR) Not Detected B.pert (TEM-PCR) Not Detected B.parapertussis DNA PCR Not Detected C. pneumoniae DNA (PCR) Not Detected Coronavirus OC43 (PCR) Not Detected Coronavirus HKU1 (PCR) Not Detected Coronavirus 229E (PCR) Not Detected Coronavirus NL63 (PCR) Not Detected Human Metapneumovir PCR Not Detected Influenza A (RT-PCR) Not Detected Influenza A (H1) PCR Not Detected Influ A (H1/09) PCR Not Detected Influenza A (H3) PCR Not Detected Influenza B (RT-PCR) Not Detected M. pneumoniae (PCR) Not Detected Parainfluenza 1 (PCR) Not Detected Parainfluenza 2 (PCR) Not Detected Parainfluenza 3 (PCR) Not Detected Parainfluenza 4 (PCR) Not Detected RSV (PCR) Not Detected Entero/Rhino (PCR) Detected A SARS-CoV-2 RNA (RT-PCR) Not Detected 07/10/24 05:00 WBC 22.6 H RBC 4.55 L Hgb 13.1 L Hct 44.0 MCV 96.7 MCH 28.8 MCHC 29.8 L RDW 15.6 Plt Count 220 MPV 10.6 Immature Gran % (Auto) 0.6 H Neut % (Auto) 86.8 H Lymph % (Auto) 5.0 L [place] % (Auto) 5.6 Eos % (Auto) 1.9 Baso % (Auto) 0.1 Lymph # (Auto) 1.1 L [place] # (Auto) 1.3 H Eos # (Auto) 0.4 Baso # (Auto) 0.0 Abs Immat Gran (auto) 0.14 H Absolute Neuts (auto) 19.6 H Absolute Nucleated RBC 0.000 Nucleated RBC % (auto) 0.0 VBG pH VBG pCO2 VBG pO2 VBG HCO3 VBG O2 Saturation VBG Base Excess Sodium 137 Potassium 4.1 Chloride 101 Carbon Dioxide 30 H Anion Gap 10 L BUN 23 H Creatinine 1.31 Estim Creat Clear Calc 66.2 Estimated GFR 55 Random Glucose 178 H Calcium 8.1 L Phosphorus 2.5 L Magnesium 2.2 Total Bilirubin 1.2 H AST 17 ALT 16 Alkaline Phosphatase 111 Total Protein 6.4 L Albumin 2.9 L Respiratory Panel [place] Adenovirus (Rapid PCR) B.pert (TEM-PCR) B.parapertussis DNA PCR C. pneumoniae DNA (PCR) Coronavirus OC43 (PCR) Coronavirus HKU1 (PCR) Coronavirus 229E (PCR) Coronavirus NL63 (PCR) Human Metapneumovir PCR Influenza A (RT-PCR) Influenza A (H1) PCR Influ A (H1) PCR Influenza A (H3) PCR Influenza B (RT-PCR) M. pneumoniae (PCR) Parainfluenza 1 (PCR) Parainfluenza 2 (PCR) Parainfluenza 3 (PCR) Parainfluenza 4 (PCR) RSV (PCR) Entero/Rhino (PCR) SARS-CoV-2 RNA (RT-PCR) Microbiology Microbiology Results: Microbiology 07/08/24 16:36 Urine clean catch - Clean Catch Midstream Urine Culture - Final No growth. 07/08/24 16:31 Trachea Gram Stain - Final 07/08/24 16:31 Trachea Sputum Culture - Preliminary Streptococcus pneumoniae 07/09/24 14:15 Bronch Rll Gram Stain - Final 07/09/24 14:15 Bronch Rll - Preliminary No growth to date. 07/09/24 14:15 Bronch Lll Gram Stain - Final 07/09/24 14:15 Bronch Lll - Preliminary No growth to date. 07/08/24 14:07 Blood - Venous Blood Culture - Preliminary Enterococcus/Streptococcus sp 07/08/24 14:07 Blood - Venous Blood Culture - Preliminary No growth after 24 hours. Progress Note: A&P Assessment and plan (1) Acute exacerbation of chronic obstructive pulmonary disease (COPD): Status: Acute (2) Respiratory failure with hypoxia and hypercapnia: Status: Acute (3) Pneumonia: Status: Acute (4) COPD (chronic obstructive pulmonary disease): Status: Acute (5) Acute respiratory failure with hypercapnia: Status: Acute Plan Neuro: Acute encephalopathy possibly due to metabolic encephalopathy On ketamine for sedation, fentanyl for analgesia- we will wean sedation and analgesia for possible weaning from ventilator today, we will do another fentanyl 1st and then we will titrate ketamine down as tolerated Close neurological status monitoring in the ICU every hour Cardiac: Cardiogenic shock: secondary to postive pressure vent, on levophed support TTE showed normal LV systolic and diastolic function, cor pulmonale, [id number] pericardial effusion with no tamponade Respiratory: Acute hypoxemic respiratory failure as the patient ran out of oxygen in his oxygen tank, has underlying COPD we will treat as a COPD exacerbation Currently on ventilator support On PRVC mode FiO2 40%, PEEP 5, TV 400, RR 20; we will place the patient on pressor support for weaning trials did bronchoscopy yesterday which showed possible external compression and also some intraluminal growth which was biopsied and sent for path review Peak pressures and plateau pressures are under the curve Ventilator management bundle with head end elevation, aspiration precaution, chlorhexidine mouthwash, daily awakening trials, daily spontaneous breathing trials bronchodilators [id number], continue steroids for COPD exacerbation GI: Continue tube feeds Renal: renal function normal We will closely monitor I's and O's Avoid nephrotoxic medications Heme: Chronic anemia, closely monitor H&H, transfuse for hemoglobin less than 7 grams/deciliter Endocrine: Blood sugars under control Sliding scale insulin as needed Infectious disease: MRSA nares positive, blood culture positive for Enterococcus and pneumococcus, sputum cultures positive for strep pneumonia. On cefepime and linezolid; we will repeat blood cultures to see if Enterococcus was contaminant Musculoskeletal: Decubitus ulcer prevention protocol Lines: peripheral Prophylaxis: Lovenox, pantoprazole Quality Stroke Does the patient have a stroke diagnosis?: No VTE Prior VTE?: No VTE Risk Level:: Medical - moderate - high VTE Device Contraindication: N/A - Device Ordered VTE Drug Contraindication: N/A - Med Ordered
[2024-07-10] MEDS: methylPREDNISolone Sod Succ 40 MG/ML VIAL IVPUSH (12:45)
--- NOTE | 2024-07-10 15:25 | MHC.CM.PN ---
Pt continues on ventilatory support in ICU : pt is a resident of [facility] and will return via BLS when medically cleared.
[2024-07-10] MEDS: Enoxaparin Sodium 40 MG/0.4 ML SYRINGE SUBCUT (15:42)
[2024-07-10 18:09] LABS: Glucose, Whole Blood 258 mg/dL (60-115)
[2024-07-10] MEDS: Insulin Lispro 100 UNIT/ML 3 ML VIAL SUBCUT ×2 (18:32→23:46)
--- NOTE | 2024-07-10 19:24 | PC.NURSE ---
Assumed care of patient at 0700, Neuro: Patient sedated Rass -3,Fentanyl paused this shift and Ketamine decreased as ordered per MD, opens eyes and tracks at times, able to wiggle toes, doesn?t squeeze hand. Resp: lungs Dim, placed on PSV for 5-10minutes, resp increased and tidal volumes decreased, placed back on ACVC+ see vent assessment for full details?? Cardiac: SB to SR this shift, no edema noted? GI/: tube feeds at ordered rated water flushes Q8HR, see tube feed assessment for full details. Martins draining clear yellow urine.? Integumentary/Musculoskeletal: [place] foam in place on Coccyx for small noted scab and preventative.?
[2024-07-10 20:34] LABS: Albumin Level 3.6 g/dL (3.5-5.0); Anion Gap 10 (12-20); Blood Urea Nitrogen 19 mg/dL (9-16); Calcium 8.4 mg/dL (8.4-10.2); Carbon Dioxide 30 mmol/L (22-29); Chloride 100 mmol/L (96-108); Creatinine Clr Calc Pharmacy 79.5; Estimated Glomerular Filt Rate > 60; Glucose Random 261 mg/dL (60-115); Magnesium 2.5 mg/dL (1.6-2.6); Phosphorus 2.3 mg/dL (2.7-4.5); Potassium 4.2 mmol/L (3.3-5.1); Sodium 136 mmol/L (135-145)
[2024-07-10 23:23] LABS: Glucose, Whole Blood 220 mg/dL (60-115)
[2024-07-10] MEDS: Ketamine HCl 500 MG in 0.9 % Sodium Chloride 250 ML 6.28 MG IVCONT (23:51)
[2024-07-11] VITALS (35 sets, daily range): BP systolic 101–136; BP diastolic 41–75; PULSE 44–69; RESP 16–24; TEMP 34.1–38.1; O2SAT 90–96; BMI 39.5
[2024-07-11] MEDS: Linezolid/D5W 600 MG/300 ML PIGGYBACK 300 MG IV ×2 (00:38→13:05)
[2024-07-11 05:33] LABS: VBG Base Excess 8.9 mmol/L; VBG HCO3 32 mmol/L (22-26); VBG pCO2 40 mmHg; VBG pH 7.51 (7.32-7.43); VBG pO2 59 mmHg
[2024-07-11 05:34] LABS: Venous Blood Gas Refer to POC result
[2024-07-11 05:53] LABS: Glucose, Whole Blood 151 mg/dL (60-115)
[2024-07-11 05:54] LABS: MANUAL DIFF FLAG NO
[2024-07-11] MEDS: Pantoprazole Sodium 40 MG/10 ML VIAL IVPUSH (05:57)
[2024-07-11 05:58] LABS: Basophils Percent Auto 0.1 % (0-2); Eosinophils Absolute Auto 0.2 X10*3/uL (0.0-0.4); Eosinophils Percent Auto 1.3 % (0-4); Hematocrit 39.5 % (42.0-52.0); Imm Gran Abs Auto 0.08 X10*3/uL (0.00-0.03); Imm Gran Pct Auto 0.6 % (0.0-0.4); Lymphocytes Absolute Auto 0.8 X10*3/uL (1.2-4.9); Lymphocytes Percent Auto 5.8 % (20-40); Mean Corpuscular HGB Conc 30.4 g/dl (31.0-36.0); Mean Corpuscular Hemoglobin 29.4 pg (27.0-33.0); Mean Corpuscular Volume 96.8 fL (80.0-98.0); Mean Platelet Volume 10.5 fL (9.4-12.4); Monocytes Absolute Auto 0.8 X10*3/uL (0.1-1.2); Monocytes Percent Auto 5.2 % (2-11); Neutrophils Absolute Auto 12.5 x10*3/uL (2.0-8.3); Platelet Count 154 X10*3/uL (160-400); Red Blood Count 4.08 X10*6/uL (4.60-5.80); Red Cell Distribution Width 15.1 % (11.0-16.0); White Blood Count 14.4 X10*3/uL (4.8-10.8)
[2024-07-11 06:21] LABS: Alanine Aminotransferase 14 U/L (0-40); Albumin Level 3.2 g/dL (3.5-5.0); Alkaline Phosphatase 97 U/L (39-117); Anion Gap 11 (12-20); Aspartate Amino Transferase 24 U/L (5-37); Bilirubin Total 0.6 mg/dL (0.0-1.0); Blood Urea Nitrogen 20 mg/dL (9-16); Calcium 8.1 mg/dL (8.4-10.2); Carbon Dioxide 29 mmol/L (22-29); Chloride 101 mmol/L (96-108); Estimated Glomerular Filt Rate > 60; Glucose Random 160 mg/dL (60-115); Magnesium 2.6 mg/dL (1.6-2.6); Phosphorus 2.8 mg/dL (2.7-4.5); Potassium 4.3 mmol/L (3.3-5.1); Sodium 137 mmol/L (135-145); Total Protein 6.2 g/dL (6.5-8.0)
[2024-07-11] MEDS: cefEPime HCl/D5W 2 GM/50 ML PIGGYBACK IV ×2 (06:29→15:58)
[2024-07-11] MEDS: Chlorhexidine Gluc Oral Rinse 15 ML MOUTHWASH BUCCAL ×3 (07:58→23:58)
[2024-07-11] MEDS: Albumin Human 25 % 100 ML IV ×2 (07:59→13:06)
--- NOTE | 2024-07-11 08:13 | P.PNCC_ITS ---
Subjective Subjective Date of Service: 07/11/24 Interval History: Continues to be on ventilator support Off of fentanyl, on ketamine 0.1 Place the patient on pressure support this morning Critical Care Time (minutes): 35 Physical Exam 2 Vital Signs: Vital Signs: Last Vital Signs Temp 99.5 F 07/11/24 07:00 Pulse 57 07/11/24 07:00 Resp 19 07/11/24 07:00 BP 125/57 L 07/11/24 07:00 Pulse Ox 93 07/11/24 08:00 O2 Del Method Mechanical Ventil ation 07/11/24 07:00 O2 Flow Rate 5 07/08/24 13:50 FiO2 40 07/11/24 08:00 BMI result Body Mass Index 39.5 General: Elderly male acute distress, ill appearing and tired appearing Nutritional Appearance: well nourished and overweight Eyes: appearance normal, both eyes and all related structures; Alignment and Position: alignment normal and position normal Neck: No lymphadenopathy, no thyromegaly Resp: bilateral air entry equal, crackles heard in the left lung base Cardio: Regular rate, regular rhythm; Heart sounds: S1 normal heart sound present and S2 normal heart sound present GI: soft, nontender, no guarding, no hepatosplenomegaly : bladder normal to inspection, bladder normal to palpation, no renal angle tenderness Skin: no rashes or lesions noted and elasticity normal Neuro: No focal deficits, moves all extremities Objective Data Labs 07/11/24 05:28 07/11/24 05:28 Labs: Laboratory Results - last 24 hr 07/10/24 07/10/24 07/10/24 18:05 20:00 23:18 WBC RBC Hgb Hct MCV MCH MCHC RDW Plt Count MPV Immature Gran % (Auto) Neut % (Auto) Lymph % (Auto) [place] % (Auto) Eos % (Auto) Baso % (Auto) Lymph # (Auto) [place] # (Auto) Eos # (Auto) Baso # (Auto) Abs Immat Gran (auto) Absolute Neuts (auto) Absolute Nucleated RBC Nucleated RBC % (auto) VBG pH VBG pCO2 VBG pO2 VBG HCO3 VBG O2 Saturation VBG Base Excess Sodium 136 Potassium 4.2 Chloride 100 Carbon Dioxide 30 H Anion Gap 10 L BUN 19 H Creatinine 1.09 Estim Creat Clear Calc 79.5 Estimated GFR > 60 POC Glucose 258 H 220 H Random Glucose 261 H Calcium 8.4 Phosphorus 2.3 L Magnesium 2.5 Total Bilirubin AST ALT Alkaline Phosphatase Total Protein Albumin 3.6 07/11/24 07/11/24 07/11/24 05:28 05:30 05:42 WBC 14.4 H RBC 4.08 L Hgb 12.0 L Hct 39.5 L MCV 96.8 MCH 29.4 MCHC 30.4 L RDW 15.1 Plt Count 154 L D MPV 10.5 Immature Gran % (Auto) 0.6 H Neut % (Auto) 87.0 H Lymph % (Auto) 5.8 L [place] % (Auto) 5.2 Eos % (Auto) 1.3 Baso % (Auto) 0.1 Lymph # (Auto) 0.8 L [place] # (Auto) 0.8 Eos # (Auto) 0.2 Baso # (Auto) 0.0 Abs Immat Gran (auto) 0.08 H Absolute Neuts (auto) 12.5 H Absolute Nucleated RBC 0.000 Nucleated RBC % (auto) 0.0 VBG pH 7.51 H VBG pCO2 40 VBG pO2 59 VBG HCO3 32 H VBG O2 Saturation 93.0 VBG Base Excess 8.9 Sodium 137 Potassium 4.3 Chloride 101 Carbon Dioxide 29 Anion Gap 11 L BUN 20 H Creatinine 1.00 Estim Creat Clear Calc 86.0 Estimated GFR > 60 POC Glucose 151 H Random Glucose 160 H Calcium 8.1 L Phosphorus 2.8 Magnesium 2.6 Total Bilirubin 0.6 AST 24 ALT 14 Alkaline Phosphatase 97 Total Protein 6.2 L Albumin 3.2 L Microbiology Microbiology Results: Microbiology 07/08/24 16:31 Trachea Gram Stain - Final 07/08/24 16:31 Trachea Sputum Culture - Final Streptococcus pneumoniae 07/08/24 14:07 Blood - Venous Blood Culture - Preliminary No growth after 48 hours. 07/08/24 16:36 Urine clean catch - Clean Catch Midstream Urine Culture - Final No growth. 07/09/24 14:15 Bronch Rll Gram Stain - Final 07/09/24 14:15 Bronch Rll - Preliminary No growth to date. 07/09/24 14:15 Bronch Lll Gram Stain - Final 07/09/24 14:15 Bronch Lll - Preliminary No growth to date. 07/08/24 14:07 Blood - Venous Blood Culture - Preliminary Enterococcus/Streptococcus sp Progress Note: A&P Assessment and plan (1) TBI (traumatic brain injury): Status: Acute (2) Acute exacerbation of chronic obstructive pulmonary disease (COPD): Status: Acute (3) Respiratory failure with hypoxia and hypercapnia: Status: Acute (4) Pneumonia: Status: Acute Plan Neuro: Acute encephalopathy possibly due to metabolic encephalopathy On ketamine for sedation weaned down 0.1 to assist with weaning from ventilator We will do fentanyl pushes as needed Close neurological status monitoring in the ICU every hour Cardiac: Cardiogenic shock: secondary to postive pressure vent, on levophed support TTE showed normal LV systolic and diastolic function, cor pulmonale, [id number] pericardial effusion with no tamponade Respiratory: Acute hypoxemic respiratory failure as the patient ran out of oxygen in his oxygen tank, has underlying COPD we will treat as a COPD exacerbation Currently on ventilator support On PRVC mode FiO2 40%, PEEP 5, TV 400, RR 20; failed weaning trials yesterday due to poor volumes, we will place the patient back on pressure support trials this morning for weaning from ventilator did bronchoscopy which showed possible external compression and also some intraluminal growth which was biopsied and sent for path review Peak pressures and plateau pressures are under the curve Ventilator management bundle with head end elevation, aspiration precaution, chlorhexidine mouthwash, daily awakening trials, daily spontaneous breathing trials bronchodilators [id number], continue steroids for COPD exacerbation Sputum cultures growing strep pneumonia, viral panel positive for rhino virus, MRSA nares positive repeat chest xray from today, doesnt show any improvement from the initial X ray. We will look for weaning parameters. GI: Continue tube feeds Renal: renal function normal We will closely monitor I's and O's Avoid nephrotoxic medications Heme: Chronic anemia, closely monitor H&H, transfuse for hemoglobin less than 7 grams/deciliter Endocrine: Blood sugars under control Sliding scale insulin as needed Infectious disease: MRSA nares positive, blood culture positive for Enterococcus and pneumococcus, sputum cultures positive for strep pneumonia. On cefepime and linezolid; repeat blood cultures were sent to see if Enterococcus was contaminant, negative at 24 hours Musculoskeletal: Decubitus ulcer prevention protocol Lines: peripheral Prophylaxis: Lovenox, pantoprazole Quality Stroke Does the patient have a stroke diagnosis?: No VTE Prior VTE?: No VTE Risk Level:: Medical - moderate - high VTE Device Contraindication: N/A - Device Ordered VTE Drug Contraindication: N/A - Med Ordered
[2024-07-11] MEDS: fentaNYL citrate/NS 1,000 MCG/100 ML PLAST..BAG 5 MCG IVCONT (09:12)
[2024-07-11 12:30] LABS: Glucose, Whole Blood 127 mg/dL (60-115)
--- NOTE | 2024-07-11 12:54 | MHC.CM.PN ---
Pt remains intubated: LTC resident of [facility] [place] and will return when medically stable.
[2024-07-11] MEDS: methylPREDNISolone Sod Succ 40 MG/ML VIAL IVPUSH (13:05)
[2024-07-11] MEDS: Ketamine HCl 500 MG in 0.9 % Sodium Chloride 250 ML 18.85 MG IVCONT (15:55)
[2024-07-11] MEDS: Enoxaparin Sodium 40 MG/0.4 ML SYRINGE SUBCUT (15:56)
[2024-07-11] MEDS: fentaNYL citrate/NS 1,000 MCG/100 ML PLAST..BAG 10 MCG IVCONT (15:57)
--- NOTE | 2024-07-11 17:27 | HO.SKINPHOTO ---
Location: Back Category:Rash Stage: Length: Width: Depth: cm
[2024-07-11 18:09] LABS: Glucose, Whole Blood 236 mg/dL (60-115)
[2024-07-11] MEDS: Insulin Lispro 100 UNIT/ML 3 ML VIAL SUBCUT (18:40)
--- NOTE | 2024-07-11 19:44 | PC.NURSE ---
Assumed care of patient at 0700, Neuro: Patient sedated Rass -2, attempted PSV this morning on patient, tolerated for about 2hours, chest xray completed, patient became agitated, resedated and placed on ACVC+ per MD, opens eyes and tracks at times, able to wiggle toes, follows commands and nods responses. Resp: lungs Dim, placed on PSV for about 2 hours, patient agitated, placed back on ACVC+ per MD, see vent assessment for full details?? Cardiac: SB to SR, 1st degree HB, this shift, no edema noted? GI/: tube feeds at ordered rated water flushes Q8HR, see tube feed assessment for full details. Martins drained clear yellow urine.? Integumentary/Musculoskeletal: [place] foam in place on Coccyx for small noted scab and preventative, beefy red rash noted to back, picture placed in chart, MD made aware to discontinue Cefepime.?
[2024-07-11 19:57] LABS: Albumin Level 3.5 g/dL (3.5-5.0); Anion Gap 13 (12-20); Blood Urea Nitrogen 24 mg/dL (9-16); Calcium 8.2 mg/dL (8.4-10.2); Carbon Dioxide 26 mmol/L (22-29); Chloride 101 mmol/L (96-108); Creatinine Clr Calc Pharmacy 78.2; Estimated Glomerular Filt Rate > 60; Glucose Random 252 mg/dL (60-115); Magnesium 2.5 mg/dL (1.6-2.6); Potassium 4.7 mmol/L (3.3-5.1); Sodium 135 mmol/L (135-145)
[2024-07-11] MEDS: Calcium Chloride 1 GM/10 ML SYRINGE IVPUSH (20:34)
[2024-07-11] MEDS: Furosemide 40 MG/4 ML VIAL IVPUSH (20:34)
[2024-07-12] VITALS (33 sets, daily range): BP systolic 90–147; BP diastolic 49–79; PULSE 43–93; RESP 14–30; TEMP 34.5–37.5; O2SAT 89–97; BMI 39.6
[2024-07-12 00:21] LABS: Glucose, Whole Blood 215 mg/dL (60-115)
[2024-07-12] MEDS: Insulin Lispro 100 UNIT/ML 3 ML VIAL SUBCUT ×2 (00:22→06:11)
[2024-07-12] MEDS: Linezolid/D5W 600 MG/300 ML PIGGYBACK 300 MG IV (00:30)
[2024-07-12] MEDS: Ketamine HCl 500 MG in 0.9 % Sodium Chloride 250 ML 18.85 MG IVCONT (04:21)
[2024-07-12 05:25] LABS: VBG Base Excess 7.6 mmol/L; VBG HCO3 33 mmol/L (22-26); VBG pCO2 48 mmHg; VBG pH 7.44 (7.32-7.43); VBG pO2 60 mmHg
[2024-07-12 05:28] LABS: Venous Blood Gas Refer to POC result
[2024-07-12 05:36] LABS: MANUAL DIFF FLAG NO
[2024-07-12 05:38] LABS: Basophils Percent Auto 0.1 % (0-2); Eosinophils Absolute Auto 0.5 X10*3/uL (0.0-0.4); Eosinophils Percent Auto 3.2 % (0-4); Hematocrit 41.9 % (42.0-52.0); Hemoglobin 12.2 g/dl (14.0-18.0); Imm Gran Abs Auto 0.07 X10*3/uL (0.00-0.03); Imm Gran Pct Auto 0.5 % (0.0-0.4); Lymphocytes Absolute Auto 1.2 X10*3/uL (1.2-4.9); Lymphocytes Percent Auto 8.1 % (20-40); Mean Corpuscular HGB Conc 29.1 g/dl (31.0-36.0); Mean Corpuscular Hemoglobin 28.9 pg (27.0-33.0); Mean Corpuscular Volume 99.3 fL (80.0-98.0); Mean Platelet Volume 11.2 fL (9.4-12.4); Monocytes Absolute Auto 0.7 X10*3/uL (0.1-1.2); Monocytes Percent Auto 4.9 % (2-11); Neutrophils Absolute Auto 11.9 x10*3/uL (2.0-8.3); Neutrophils Percent Auto 83.2 % (45-73); Platelet Count 167 X10*3/uL (160-400); Red Blood Count 4.22 X10*6/uL (4.60-5.80); Red Cell Distribution Width 14.6 % (11.0-16.0); White Blood Count 14.3 X10*3/uL (4.8-10.8)
[2024-07-12 05:57] LABS: Alanine Aminotransferase 30 U/L (0-40); Albumin Level 3.5 g/dL (3.5-5.0); Anion Gap 12 (12-20); Aspartate Amino Transferase 45 U/L (5-37); Bilirubin Total 0.4 mg/dL (0.0-1.0); Blood Urea Nitrogen 27 mg/dL (9-16); Calcium 8.9 mg/dL (8.4-10.2); Carbon Dioxide 31 mmol/L (22-29); Chloride 100 mmol/L (96-108); Creatinine Clr Calc Pharmacy 77.5; Estimated Glomerular Filt Rate > 60; Glucose Random 173 mg/dL (60-115); Magnesium 2.7 mg/dL (1.6-2.6); Phosphorus 3.2 mg/dL (2.7-4.5); Potassium 4.7 mmol/L (3.3-5.1); Sodium 138 mmol/L (135-145); Total Protein 6.4 g/dL (6.5-8.0)
[2024-07-12] MEDS: fentaNYL citrate/NS 1,000 MCG/100 ML PLAST..BAG 5 MCG IVCONT (06:03)
[2024-07-12 06:13] LABS: Alkaline Phosphatase 82 U/L (39-117)
[2024-07-12 06:22] LABS: T4 Thyroxine 4.2 ug/dL (4.5-12.0); Thyroid Stimulating Hormone 1.81 uIU/mL (0.32-4.0)
[2024-07-12] MEDS: Chlorhexidine Gluc Oral Rinse 15 ML MOUTHWASH BUCCAL (08:04)
--- NOTE | 2024-07-12 10:16 | MHC.CLN ---
F/U PT REMAINS INTUBATED AND SEDATED DISCUSSED AT ROUNDS WITH MD-PLAN FOR EXTUBATION TODAY PT RECEIVING GLUCERNA AT MAX GOAL RATE 65ML/HR WITH 240ML FREE WATER FLUSHES Q 8 HRS PROVIDES 1560KCALS (24KCALS/KG BASED ON IBW), 65G PROTEIN (1.0G/KG), 2050ML TOTAL FREE WATER FROM FORMULA AND FLUSHES (31.5ML/KG) MONITOR TOLERANCE AND LYTES NOTED SCAB TO R BUTT-WOUND CONSULT PENDING FOLLOWING WITH TEAM
--- NOTE | 2024-07-12 10:30 | P.PNCC_ITS ---
Subjective Subjective Date of Service: 07/12/24 Interval History: 63-year-old gentleman with underlying TBI, seizure disorder, diabetes mellitus, COPD admitted on 07/08/2024 with acute hypoxic and hypercapnic respiratory failure requiring intubation and ventilatory support likely secondary to pulmonary aspiration. Hospital course also significant for bacteremia. No events overnight. Critical Care Time (minutes): 60 Physical Exam 2 Vital Signs: Vital Signs: Last Vital Signs Temp 99.0 F 07/12/24 10:00 Pulse 56 07/12/24 10:00 Resp 18 07/12/24 10:00 BP 109/55 L 07/12/24 10:00 Pulse Ox 92 07/12/24 10:00 O2 Del Method Mechanical Ventil ation 07/12/24 10:00 O2 Flow Rate 5 07/08/24 13:50 FiO2 40 07/12/24 10:00 BMI result Body Mass Index 39.6 Const: General: no acute distress and other (Sedated on ventilatory support) Nutritional Appearance: obese Eyes: Sclerae: sclerae normal EOM: EOMs intact bilaterally Neck: Neck: Yes no lymphadenopathy, Yes trachea midline and Yes supple Resp: Auscultation: clear to auscultation bilaterally Cardio: Rate: regular rate Rhythm: regular rhythm Heart sounds: no gallops, no murmurs and no rubs GI: Palpation (GI): Soft to palpation and Other GI palpation findings present ( Nontender) Auscultation: normal bowel sounds Extrem: General: No clubbing, No cyanosis and Yes edema (1+ bilateral) Objective Data Labs 07/12/24 05:14 07/12/24 05:14 Labs: Laboratory Results - last 24 hr 07/11/24 07/11/24 07/11/24 12:19 18:00 19:33 WBC RBC Hgb Hct MCV MCH MCHC RDW Plt Count MPV Immature Gran % (Auto) Neut % (Auto) Lymph % (Auto) [place] % (Auto) Eos % (Auto) Baso % (Auto) Lymph # (Auto) [place] # (Auto) Eos # (Auto) Baso # (Auto) Abs Immat Gran (auto) Absolute Neuts (auto) Absolute Nucleated RBC Nucleated RBC % (auto) VBG pH VBG pCO2 VBG pO2 VBG HCO3 VBG O2 Saturation VBG Base Excess Sodium 135 Potassium 4.7 Chloride 101 Carbon Dioxide 26 Anion Gap 13 BUN 24 H Creatinine 1.10 Estim Creat Clear Calc 78.2 Estimated GFR > 60 POC Glucose 127 H 236 H Random Glucose 252 H Calcium 8.2 L Phosphorus 3.0 Magnesium 2.5 Total Bilirubin AST ALT Alkaline Phosphatase Total Protein Albumin 3.5 TSH Thyroxine (T4) 07/12/24 07/12/24 07/12/24 00:12 05:14 05:22 WBC 14.3 H RBC 4.22 L Hgb 12.2 L Hct 41.9 L MCV 99.3 H MCH 28.9 MCHC 29.1 L RDW 14.6 Plt Count 167 MPV 11.2 Immature Gran % (Auto) 0.5 H Neut % (Auto) 83.2 H Lymph % (Auto) 8.1 L [place] % (Auto) 4.9 Eos % (Auto) 3.2 Baso % (Auto) 0.1 Lymph # (Auto) 1.2 [place] # (Auto) 0.7 Eos # (Auto) 0.5 H Baso # (Auto) 0.0 Abs Immat Gran (auto) 0.07 H Absolute Neuts (auto) 11.9 H Absolute Nucleated RBC 0.000 Nucleated RBC % (auto) 0.0 VBG pH 7.44 H VBG pCO2 48 VBG pO2 60 VBG HCO3 33 H VBG O2 Saturation 91.0 VBG Base Excess 7.6 Sodium 138 Potassium 4.7 Chloride 100 Carbon Dioxide 31 H Anion Gap 12 BUN 27 H Creatinine 1.11 Estim Creat Clear Calc 77.5 Estimated GFR > 60 POC Glucose 215 H Random Glucose 173 H Calcium 8.9 D Phosphorus 3.2 Magnesium 2.7 H Total Bilirubin 0.4 AST 45 H ALT 30 Alkaline Phosphatase 82 Total Protein 6.4 L Albumin 3.5 TSH 1.81 Thyroxine (T4) 4.2 L Microbiology Microbiology Results: Microbiology 07/08/24 14:07 Blood - Venous Blood Culture - Final Enterococcus faecalis Aerococcus species 07/10/24 12:42 Blood - Venous Blood Culture - Preliminary No growth after 24 hours. 07/10/24 11:54 Blood - Venous Blood Culture - Preliminary No growth after 24 hours. 07/09/24 14:15 Bronch Rll Gram Stain - Final 07/09/24 14:15 Bronch Rll - Final No growth after 2 days 07/09/24 14:15 Bronch Lll Gram Stain - Final 07/09/24 14:15 Bronch Lll - Final No growth after 2 days 07/08/24 16:31 Trachea Gram Stain - Final 07/08/24 16:31 Trachea Sputum Culture - Final Streptococcus pneumoniae 07/08/24 14:07 Blood - Venous Blood Culture - Preliminary No growth after 48 hours. 07/08/24 16:36 Urine clean catch - Clean Catch Midstream Urine Culture - Final No growth. Progress Note: A&P Assessment and plan (1) TBI (traumatic brain injury): Status: Acute (2) COPD (chronic obstructive pulmonary disease): Status: Acute (3) Aspiration into airway: Status: Acute (4) Respiratory failure with hypoxia and hypercapnia: Status: Acute (5) Epilepsy: Status: Acute (6) Diabetes mellitus: Status: Acute Plan Assessment: 63-year-old gentleman with underlying TBI, seizure disorder, COPD admitted 07/08/2024 with acute hypoxic and hypercapnic respiratory failure likely secondary to pulmonary aspiration requiring intubation and ventilatory support Plan: Neuro: No acute issues. Underlying TBI and seizure disorder. Continue lithium and topiramate. Cardiac: No acute issues. Pulmonary: Acute hypoxic and hypercapnic respiratory failure requiring ventilatory support, likely secondary to pulmonary aspiration. Continue to titrate off ventilatory support as tolerated. Underlying COPD. Renal: No acute issues. Endo: No acute issues. Underlying diabetes mellitus. GI: No acute issues. ID: Polymicrobial bacteremia, will switch linezolid to Unasyn. Repeat blood cultures pending. Heme/Onc: No acute issues. Psych: No acute issues. Miscellaneous: No acute issues. Prophylaxis: Heparin, famotidine Diet: Tube feeds Critical care time spent: 60 minutes Quality Stroke Does the patient have a stroke diagnosis?: No VTE Prior VTE?: No VTE Risk Level:: Medical - moderate - high VTE Device Contraindication: N/A - Device Ordered VTE Drug Contraindication: N/A - Med Ordered
[2024-07-12 12:22] LABS: Glucose, Whole Blood 139 mg/dL (60-115)
[2024-07-12] MEDS: Ampicillin Sodium/Sulbactam Na 3 GM in 0.9 % Sodium Chloride 100 ML IV ×3 (12:54→23:06)
--- NOTE | 2024-07-12 12:54 | PC.RT ---
Addendum entered by Marleni Puga, RT 07/12/24 12:56: Pt had positive cuff leak pre-extubation. Original Note: Pt trialed on PSV at approx 0830. Pt vishal well and was titrated down to 8/5 35%. Pt control extubated by RT per MD order at 1245. No stridor noted post extubation. Pt on 6L NC.
[2024-07-12] MEDS: Enoxaparin Sodium 40 MG/0.4 ML SYRINGE SUBCUT (14:19)
--- NOTE | 2024-07-12 14:55 | MHC.CM.PN ---
PT REMAINS IN ICU ON VENTILATORY SUPPORT. PER MD ROUNDS, PT MAY BE EXTUBATED TODAY. CLINICAL UPDATES PROVIDED TO MARIELY WHYTE VIA [employer]. CM WILL CONTINUE TO FOLLOW FOR ANY CHANGE TO DC PLAN/NEEDS.
--- NOTE | 2024-07-12 15:07 | HO.WOUND ---
Wound Consult: Initial 63yr old male admitted [place] [facility] - See progress notes and H&P for detailed history.? Wound consult placed for Left Buttock.? Patient note able to be repositioned at the time of my arrival to ICU. Photo reviewed and discussed with direct care nurse. SHIMON pump in place for bed along with Q2hr turns and repositions. Left buttock Etiology: Abrasion ??Present on Admission Measurements: 0.2cm x 0.2cm Wound Bed: dry stable black scab Drainage / Odor: None Edges: ? attached Sarai wound: ?red hyperpigmentation noted Goals of Treatment: Off load and protect from friction triad for topical care? Recommendations: 1. Turn and Reposition every 2 hours and as needed for patient comfort.? Use pillows or wedges to support off loading positions. 2. Off Load all bony prominences with use of pillows and heel boots if needed.? Apply Preventative foams where needed. ? 3. Monitor for incontinence and moisture control, use barrier creams when needed for prevention and treatment. 4. Provide adequate and supplemental nutrition.? 5. Continue low air loss mattress. 6. When applicable maintain blood glucose levels per Providers order. Left Buttock - Off Load Pressure with Q2 hr turns and use of pillows - Cleanse with PH balance spray or wipes, pat dry. ?Apply thin layer of Triad to wound bed - only pat and dab no scrub and rub when soiling occurs. Reapply thin layer PRN after each episode of incontinence. Re-consult wound care Nurse for wound deterioration or wound changes.
[2024-07-13] VITALS (14 sets, daily range): BP systolic 129–162; BP diastolic 67–82; PULSE 61–85; RESP 12–30; TEMP 37–37.9; O2SAT 88–98; BMI 39.8
[2024-07-13] MEDS: Ketamine HCl 500 MG in 0.9 % Sodium Chloride 250 ML 12.57 MG IVCONT (03:10)
[2024-07-13] MEDS: Ampicillin Sodium/Sulbactam Na 3 GM in 0.9 % Sodium Chloride 100 ML IV ×4 (05:11→22:00)
[2024-07-13 05:41] LABS: VBG Base Excess 10.2 mmol/L; VBG HCO3 37 mmol/L (22-26); VBG pCO2 59 mmHg; VBG pH 7.41 (7.32-7.43); VBG pO2 38 mmHg
[2024-07-13 06:20] LABS: MANUAL DIFF FLAG NO
[2024-07-13 06:22] LABS: Basophils Percent Auto 0.3 % (0-2); Eosinophils Absolute Auto 0.7 X10*3/uL (0.0-0.4); Eosinophils Percent Auto 6.4 % (0-4); Hematocrit 48.6 % (42.0-52.0); Imm Gran Abs Auto 0.05 X10*3/uL (0.00-0.03); Imm Gran Pct Auto 0.4 % (0.0-0.4); Lymphocytes Absolute Auto 0.9 X10*3/uL (1.2-4.9); Lymphocytes Percent Auto 8.1 % (20-40); Mean Corpuscular HGB Conc 28.8 g/dl (31.0-36.0); Mean Corpuscular Hemoglobin 28.9 pg (27.0-33.0); Mean Corpuscular Volume 100.4 fL (80.0-98.0); Monocytes Absolute Auto 0.7 X10*3/uL (0.1-1.2); Monocytes Percent Auto 5.9 % (2-11); Neutrophils Absolute Auto 8.8 x10*3/uL (2.0-8.3); Neutrophils Percent Auto 78.9 % (45-73); Platelet Count 172 X10*3/uL (160-400); Red Blood Count 4.84 X10*6/uL (4.60-5.80); Red Cell Distribution Width 14.6 % (11.0-16.0); White Blood Count 11.2 X10*3/uL (4.8-10.8)
[2024-07-13 06:39] LABS: Albumin Level 3.7 g/dL (3.5-5.0); Anion Gap 12 (12-20); Blood Urea Nitrogen 19 mg/dL (9-16); Calcium 8.8 mg/dL (8.4-10.2); Carbon Dioxide 32 mmol/L (22-29); Chloride 104 mmol/L (96-108); Creatinine Clr Calc Pharmacy 105.4; Estimated Glomerular Filt Rate > 60; Glucose Random 122 mg/dL (60-115); Magnesium 2.4 mg/dL (1.6-2.6); Phosphorus 3.5 mg/dL (2.7-4.5); Potassium 3.9 mmol/L (3.3-5.1); Sodium 144 mmol/L (135-145)
[2024-07-13 08:29] LABS: Venous Blood Gas Refer to POC result
[2024-07-13] MEDS: Topiramate 25 MG TABLET 50 MG PO ×2 (08:54→20:00)
[2024-07-13] MEDS: QUEtiapine Fumarate 100 MG TABLET PO ×2 (09:47→20:00)
--- NOTE | 2024-07-13 10:03 | PM.CCPN ---
Subjective Subjective Date of Service: 07/13/24 Interval History: 63-year-old gentleman with underlying TBI, seizure disorder, diabetes mellitus, COPD admitted on 07/08/2024 with acute hypoxic and hypercapnic respiratory failure requiring intubation and ventilatory support likely secondary to pulmonary aspiration. Hospital course also significant for polymicrobial bacteremia. Extubated uneventfully on 07/12/2024. No events overnight. Critical Care Time (minutes): 0 Physical Exam Vital Signs: Vital Signs: Last Vital Signs Temp 99.1 F 07/13/24 08:00 Pulse 72 07/13/24 09:00 Resp 20 07/13/24 09:00 BP 152/81 H 07/13/24 09:00 Pulse Ox 91 L 07/13/24 09:00 O2 Del Method Nasal Cannula 07/13/24 09:00 O2 Flow Rate 6 07/13/24 09:00 FiO2 30 07/12/24 12:00 BMI result Body Mass Index 39.8 Const: General: no acute distress, alert, awake and other (Intermittently agitated) Nutritional Appearance: obese Eyes: Sclerae: sclerae normal EOM: EOMs intact bilaterally Neck: Neck: Yes no lymphadenopathy, Yes trachea midline and Yes supple Resp: Effort & Inspection: normal respiratory effort and no respiratory distress Auscultation: clear to auscultation bilaterally Cardio: Rate: regular rate Rhythm: regular rhythm Heart sounds: no gallops, no murmurs and no rubs GI: Palpation (GI): Soft to palpation and Other GI palpation findings present ( Nontender) Auscultation: normal bowel sounds Extrem: General: Yes no pedal edema, No clubbing and No cyanosis Objective Data Labs 07/13/24 05:38 07/13/24 05:38 Labs: Laboratory Results - last 24 hr 07/12/24 07/13/24 12:15 05:38 WBC 11.2 H RBC 4.84 Hgb 14.0 Hct 48.6 MCV 100.4 H MCH 28.9 MCHC 28.8 L RDW 14.6 Plt Count 172 MPV 11.0 Immature Gran % (Auto) 0.4 Neut % (Auto) 78.9 H Lymph % (Auto) 8.1 L [place] % (Auto) 5.9 Eos % (Auto) 6.4 H Baso % (Auto) 0.3 Lymph # (Auto) 0.9 L [place] # (Auto) 0.7 Eos # (Auto) 0.7 H Baso # (Auto) 0.0 Abs Immat Gran (auto) 0.05 H Absolute Neuts (auto) 8.8 H Absolute Nucleated RBC 0.000 Nucleated RBC % (auto) 0.0 VBG pH 7.41 VBG pCO2 59 VBG pO2 38 VBG HCO3 37 H VBG O2 Saturation 66.0 VBG Base Excess 10.2 Sodium 144 Potassium 3.9 Chloride 104 Carbon Dioxide 32 H Anion Gap 12 BUN 19 H Creatinine 0.82 Estim Creat Clear Calc 105.4 Estimated GFR > 60 POC Glucose 139 H Random Glucose 122 H Calcium 8.8 Phosphorus 3.5 Magnesium 2.4 Albumin 3.7 Microbiology Microbiology Results: Microbiology 07/10/24 12:42 Blood - Venous Blood Culture - Preliminary No growth after 48 hours. 07/10/24 11:54 Blood - Venous Blood Culture - Preliminary No growth after 48 hours. 07/08/24 14:07 Blood - Venous Blood Culture - Final Enterococcus faecalis Aerococcus species 07/09/24 14:15 Bronch Rll Gram Stain - Final 07/09/24 14:15 Bronch Rll - Final No growth after 2 days 07/09/24 14:15 Bronch Lll Gram Stain - Final 07/09/24 14:15 Bronch Lll - Final No growth after 2 days 07/08/24 16:31 Trachea Gram Stain - Final 07/08/24 16:31 Trachea Sputum Culture - Final Streptococcus pneumoniae 07/08/24 14:07 Blood - Venous Blood Culture - Preliminary No growth after 48 hours. 07/08/24 16:36 Urine clean catch - Clean Catch Midstream Urine Culture - Final No growth. Progress Note: A&P Assessment and plan (1) Diabetes mellitus: Status: Acute (2) Bacteremia: Status: Acute (3) TBI (traumatic brain injury): Status: Acute (4) Epilepsy: Status: Acute (5) COPD (chronic obstructive pulmonary disease): Status: Acute (6) Aspiration into airway: Status: Acute Plan Assessment: 63-year-old gentleman with underlying TBI, seizure disorder, COPD admitted 07/08/2024 with acute hypoxic and hypercapnic respiratory failure likely secondary to pulmonary aspiration requiring intubation and ventilatory support Plan: Neuro: No acute issues. Underlying TBI and seizure disorder. Continue lithium and topiramate. Seroquel added for agitation. Cardiac: No acute issues. Pulmonary: Acute hypoxic and hypercapnic respiratory failure requiring ventilatory support, likely secondary to pulmonary aspiration, resolved. Extubated uneventfully on 07/12/2024. Underlying COPD. Renal: No acute issues. Endo: No acute issues. Underlying diabetes mellitus. GI: No acute issues. ID: Polymicrobial bacteremia, continue Unasyn. Repeat blood cultures negative to date. Heme/Onc: No acute issues. Psych: No acute issues. Miscellaneous: No acute issues. Prophylaxis: Heparin Diet: Chopped/honey thick Quality Stroke Does the patient have a stroke diagnosis?: No VTE Prior VTE?: No VTE Risk Level:: Medical - moderate - high VTE Device Contraindication: N/A - Device Ordered VTE Drug Contraindication: N/A - Med Ordered
--- NOTE | 2024-07-13 11:13 | PM.EVENT ---
Event Note Date of Service: 07/13/24 Event Note: ICU transfer, discussed with ICU attending. Patient from care [facility] [place] Acute hypoxic and hypercapnic respiratory failure requiring intubation and ventilatory support secondary to aspiration pneumonia, acute on chronic extubated on 07/12/24 On Unasyn Continue supplemental oxygen to keep oxygen saturation greater than 90% Diabetes mellitus type 2 Sliding scale, Lantus History of TBI, seizures Continue lithium, Topamax, Seroquel COPD No exacerbation Albuterol as needed DVT Lovenox Time Spent With Patient Time: Total time managing care of this patient today ____ minutes.
[2024-07-13 13:55] LABS: Glucose, Whole Blood 118 mg/dL (60-115)
[2024-07-13] MEDS: Enoxaparin Sodium 40 MG/0.4 ML SYRINGE SUBCUT (15:03)
[2024-07-13 15:43] LABS: Glucose, Whole Blood 107 mg/dL (60-115)
[2024-07-13] MEDS: Atorvastatin Calcium 10 MG TABLET PO (20:00)
[2024-07-13] MEDS: Lithium Carbonate 300 MG TABLET 450 MG PO (20:00)
[2024-07-13 20:26] LABS: Glucose, Whole Blood 191 mg/dL (60-115)
[2024-07-13] MEDS: Insulin Lispro 100 UNIT/ML 3 ML VIAL SUBCUT (21:21)
[2024-07-13] MEDS: diphenhydrAMINE HCL 25 MG CAPSULE PO (22:14)
[2024-07-14] VITALS: BP 140/75; PULSE 59; RESP 20; TEMP 36.7; O2SAT 95
[2024-07-14 03:32] VITALS: BP 135/69; PULSE 66; RESP 24; TEMP 36.9; O2SAT 96
[2024-07-14 06:00] VITALS: BMI 39.4
[2024-07-14 06:34] LABS: Venous Blood Gas Refer to POC result
[2024-07-14 06:36] LABS: VBG Base Excess 12.7 mmol/L; VBG HCO3 40 mmol/L (22-26); VBG pCO2 64 mmHg; VBG pO2 48 mmHg
[2024-07-14] MEDS: Ampicillin Sodium/Sulbactam Na 3 GM in 0.9 % Sodium Chloride 100 ML IV ×4 (06:36→23:08)
[2024-07-14 07:01] LABS: MANUAL DIFF FLAG NO
[2024-07-14 07:08] LABS: Basophils Percent Auto 0.3 % (0-2); Eosinophils Absolute Auto 0.5 X10*3/uL (0.0-0.4); Eosinophils Percent Auto 4.9 % (0-4); Hematocrit 47.7 % (42.0-52.0); Hemoglobin 13.8 g/dl (14.0-18.0); Imm Gran Abs Auto 0.04 X10*3/uL (0.00-0.03); Imm Gran Pct Auto 0.4 % (0.0-0.4); Lymphocytes Absolute Auto 1.1 X10*3/uL (1.2-4.9); Lymphocytes Percent Auto 11.1 % (20-40); Mean Corpuscular HGB Conc 28.9 g/dl (31.0-36.0); Mean Corpuscular Hemoglobin 28.8 pg (27.0-33.0); Mean Corpuscular Volume 99.6 fL (80.0-98.0); Monocytes Absolute Auto 0.6 X10*3/uL (0.1-1.2); Neutrophils Absolute Auto 7.4 x10*3/uL (2.0-8.3); Neutrophils Percent Auto 77.3 % (45-73); Platelet Count 179 X10*3/uL (160-400); Red Blood Count 4.79 X10*6/uL (4.60-5.80); Red Cell Distribution Width 14.4 % (11.0-16.0); White Blood Count 9.6 X10*3/uL (4.8-10.8)
[2024-07-14 07:11] VITALS: BP 167/81; PULSE 62; RESP 19; TEMP 36.7; O2SAT 94
[2024-07-14 07:25] LABS: Albumin Level 3.5 g/dL (3.5-5.0); Anion Gap 12 (12-20); Blood Urea Nitrogen 16 mg/dL (9-16); Calcium 8.8 mg/dL (8.4-10.2); Carbon Dioxide 36 mmol/L (22-29); Chloride 101 mmol/L (96-108); Creatinine Clr Calc Pharmacy 126.4; Estimated Glomerular Filt Rate > 60; Glucose Random 208 mg/dL (60-115); Magnesium 2.3 mg/dL (1.6-2.6); Phosphorus 3.3 mg/dL (2.7-4.5); Potassium 3.7 mmol/L (3.3-5.1); Sodium 145 mmol/L (135-145)
[2024-07-14 07:41] LABS: Glucose, Whole Blood 180 mg/dL (60-115)
[2024-07-14] MEDS: Lithium Carbonate 300 MG TABLET 450 MG PO ×2 (09:40→21:02)
[2024-07-14] MEDS: Topiramate 25 MG TABLET 50 MG PO ×2 (09:41→21:01)
[2024-07-14] MEDS: Insulin Glargine,Hum.rec.anlog 100 UNIT/ML 10 ML VIAL 15 UNIT SUBCUT (09:41)
[2024-07-14] MEDS: Insulin Lispro 100 UNIT/ML 3 ML VIAL SUBCUT ×2 (09:41→21:01)
[2024-07-14] MEDS: Aspirin Enteric Coated 81 MG TABLET.DR PO (09:41)
[2024-07-14] MEDS: QUEtiapine Fumarate 100 MG TABLET PO ×2 (09:41→21:02)
--- NOTE | 2024-07-14 10:07 | MHC.SL.SWA ---
Speech Pathologist Impression: Oropharyngeal dysphagia, longstanding hx of dysphagia secondary to cognition/behavior (impulsive, poor self-awareness, press of speech, resistance to cues) Risk of Aspiration Due to: Hx of dysphagia Hx of aspiration PNAs Recent extubation (07/12/24) Poor ability to self monitor for safety of PO intake Dysphasia Diet Status: Recommend continue on Current Diet of PUREE (NDD1) with HONEY THICK liquids, pills crushed in puree and 1:1 supervision/cueing at next level of care. Liquid Consistency and Strategies for Safe Swallow: Liquid Intake Recommendation: [place] Thick Liquid Intake Strategies: Solid Food Consistency: Dietary Recommendations: Chopped/Advanced (NDD3) Additional Modifications to Solid Foods: Recommend NDD3(chopped/advanced) with NECTAR THICK liquids, pills crushed in puree. Patient demonstrates high level of impulsivity, may try to chug liquids if given cup, take too large bites of food, and talk while eating (all aspiration risks). Supervision is required at all meals. Oral Medication Intake: Crushed with Puree Please contact the pharmacy regarding appropriate crushable or liquid drug formulations that are available whenever modified delivery is recommended. Compensatory Strategies and Precautions to be Taken for Safe Swallow: Supervision While Eating and Drinking for Safe Swallow: Direct Supervision (1:1) Foods to Avoid: Mixed consistencies, thick pieces of solids Swallowing Recommended Treatments: Recommendation for Speech: Comment: Pt presents with behavioral challenges that compromise his overall safety with PO intake. Of note, pt cognitive status notably improved during this evaluation (pt is known to DEBT AND BUDGET COUNSELOR). Pt repositioned himself more upright as DEBT AND BUDGET COUNSELOR raised HOB. Pt was resistant to assist initially; RN and sitter successfully repositioned pt so HOB could be at 80degrees elevation. Pt exhibited overt s/s of aspiration with thins as he gulped consecutive large sips by cup. Pt would not allow DEBT AND BUDGET COUNSELOR to assist and did not follow verbal cues to slow pace. Pt tolerated sips of NTL and HTL with adequate oropharyngeal coordination; though anterior loss occurred when pt tipped cup too quickly. Pt tolerated tsps of puree with efficient timing and coordination. Pt able to formulate bolus for solid consistencies; though he overstuffed his mouth. Pt followed nonverbal cues to alternate consistencies (DEBT AND BUDGET COUNSELOR handed pt cup of thickened liquids to moisten bolus and clear residuals). Pt voicing clear upon speaking loudly to RN, sitter and DEBT AND BUDGET COUNSELOR at end of evaluation. RN consulted, notified via secure text: recc NDD3 with NTL, aspiration precautions, meds in puree, 1:1 supervision, meal set up to encourage slow pacing (small amounts of food/liquid presented in increments with breaks as needed if pt is showing more impulsivity or press of speech). DEBT AND BUDGET COUNSELOR following. Frequency/Duration: Daily M-F Date Range for Service Req: Timeline to reassess: Director Of Food And Nutrition Services Clinican/Clinical Fellow: No Supervisory Statement: I have reviewed and agree with the student/clinical fellow's documentation: N/A Speech Language Pathologist: Marybeth Phan M.S., CCC-DEBT AND BUDGET COUNSELOR
--- NOTE | 2024-07-14 10:36 | PM.DS ---
DS: Providers Provider Date of Service: 07/14/24 Date of admission: 07/08/24 14:53 Date of discharge: 07/14/24 Primary care physician: Hilario Blank DO Consults: 07/09/24 12:30 Consult to Wound Care Routine Reason for consultation: healing PI to coccyx on admission Has provider been notified: Yes DS: Diagnosis Discharge Diagnosis (1) Diabetes mellitus: Status: Acute (2) Bacteremia: Status: Acute (3) TBI (traumatic brain injury): Status: Acute (4) Epilepsy: Status: Acute (5) COPD (chronic obstructive pulmonary disease): Status: Acute (6) Aspiration into airway: Status: Acute (7) Acute on chronic respiratory failure with hypoxia and hypercapnia: Status: Acute (8) Pneumonia: Status: Acute Physical Exam Vital Signs: Vital Signs: Last Vital Signs Temp 98.1 F 07/14/24 07:11 Pulse 62 07/14/24 07:11 Resp 19 07/14/24 07:11 BP 167/81 H 07/14/24 07:11 Pulse Ox 94 07/14/24 07:11 O2 Del Method Nasal Cannula 07/14/24 07:11 O2 Flow Rate 2 07/14/24 07:11 FiO2 30 07/12/24 12:00 BMI result Body Mass Index 39.4 DS: Data Data Completed and Pending Completed studies during hospitalization [Text1]: Pending at discharge 07/09/24 14:08 Surgical Path [Surgical] [PTH] Routine Procedures Assistance with Respiratory Ventilation, Less than 24 Consecutive Hours, Continuous Positive Airway Pressure (03/15/24) Insertion of Endotracheal Airway into Trachea, Via Natural or Artificial Opening (03/15/24) Introduction of Vasopressor into Peripheral Vein, Percutaneous Approach (03/15/24) Respiratory Ventilation, Greater than 96 Consecutive Hours (03/15/24) Labs on day of discharge: Laboratory Results - last 24 hr 07/13/24 07/13/24 07/13/24 13:52 15:40 20:11 WBC RBC Hgb Hct MCV MCH MCHC RDW Plt Count MPV Immature Gran % (Auto) Neut % (Auto) Lymph % (Auto) [place] % (Auto) Eos % (Auto) Baso % (Auto) Lymph # (Auto) [place] # (Auto) Eos # (Auto) Baso # (Auto) Abs Immat Gran (auto) Absolute Neuts (auto) Absolute Nucleated RBC Nucleated RBC % (auto) VBG pH VBG pCO2 VBG pO2 VBG HCO3 VBG O2 Saturation VBG Base Excess Sodium Potassium Chloride Carbon Dioxide Anion Gap BUN Creatinine Estim Creat Clear Calc Estimated GFR POC Glucose 118 H 107 191 H Random Glucose Calcium Phosphorus Magnesium Albumin 07/14/24 07/14/24 07/14/24 06:27 06:31 07:37 WBC 9.6 RBC 4.79 Hgb 13.8 L Hct 47.7 MCV 99.6 H MCH 28.8 MCHC 28.9 L RDW 14.4 Plt Count 179 MPV 11.0 Immature Gran % (Auto) 0.4 Neut % (Auto) 77.3 H Lymph % (Auto) 11.1 L [place] % (Auto) 6.0 Eos % (Auto) 4.9 H Baso % (Auto) 0.3 Lymph # (Auto) 1.1 L [place] # (Auto) 0.6 Eos # (Auto) 0.5 H Baso # (Auto) 0.0 Abs Immat Gran (auto) 0.04 H Absolute Neuts (auto) 7.4 Absolute Nucleated RBC 0.000 Nucleated RBC % (auto) 0.0 VBG pH 7.40 VBG pCO2 64 VBG pO2 48 VBG HCO3 40 H VBG O2 Saturation 73.0 VBG Base Excess 12.7 Sodium 145 Potassium 3.7 Chloride 101 Carbon Dioxide 36 H Anion Gap 12 BUN 16 Creatinine 0.68 Estim Creat Clear Calc 126.4 Estimated GFR > 60 POC Glucose 180 H Random Glucose 208 H Calcium 8.8 Phosphorus 3.3 Magnesium 2.3 Albumin 3.5 Preliminary micro results at discharge 07/10/24 12:42 Blood Culture - Preliminary Blood - Venous No growth after 48 hours. 07/10/24 11:54 Blood Culture - Preliminary Blood - Venous No growth after 48 hours. Discharge Plan Discharge Referrals: Hilario Blank DO [Primary Care Provider] - 1 Week Discharge Medications: No Action acetaminophen 325 mg Tablet 650 mg PO Q6H PRN (Reason: Fever Or Pain) atorvastatin 10 mg Tablet 10 mg PO BEDTIME fexofenadine 180 mg Tablet 180 mg PO DAILY aspirin 81 mg Tablet,Delayed Release (Dr/Ec) 81 mg PO DAILY Rx Instructions: TAKE WITH A FULL GLASS OF WATER bisacodyl 10 mg Suppository 10 mg NV DAILY PRN (Reason: constipation if senna ineffective) Fleet Enema 19-7 gram/118 mL Enema 118 ml [place] DAILY PRN (Reason: constipation if bisacodyl supp ineffective) albuterol sulfate 90 mcg/actuation Hfa Aerosol Inhaler 2 puff INHALATION Q6H PRN (Reason: Bronchospasm/SOB) Artificial Tears([id number]) 1-0.2-0.2 % Drops 2 drp OPHTHALMIC (EYE) Q8H PRN (Reason: itchy eyes) guaifenesin 200 mg/5 mL Liquid 400 mg PO Q4H PRN (Reason: Congestion) fluticasone furoate-vilanterol [Breo Ellipta] 100-25 mcg/dose Blister With Device 1 inh INHALATION DAILY trazodone 50 mg Tablet 50 mg PO BEDTIME ondansetron HCl 8 mg Tablet 8 mg PO Q6H PRN (Reason: nausea/vomiting) sennosides-docusate sodium [Senna with Docusate Sodium] 8.6-50 mg Tablet 1 tab-cap PO BID lithium carbonate 150 mg Capsule 150 mg PO BID melatonin 3 mg Tablet 9 mg PO BEDTIME propranolol 10 mg Tablet 5 mg PO BID tamsulosin 0.4 mg Capsule 0.4 mg PO BEDTIME lithium carbonate 300 mg Capsule 300 mg PO BID topiramate 50 mg Tablet 50 mg PO BID simethicone 80 mg Tablet 80 mg PO Q6H PRN (Reason: flatulence/bloating) Spiriva Respimat 2.5 mcg/actuation Mist 2 puff INHALATION DAILY insulin glargine [Lantus U-100 Insulin] 100 unit/mL Solution 15 unit subcut DAILY Qty: 1 0RF sennosides [senna] 8.6 mg Tablet 8.6 mg PO DAILY PRN (Reason: Constipation) doxycycline hyclate 100 mg Capsule 100 mg PO BID metformin 1,000 mg Tablet 1,000 mg PO BIDWM insulin lispro [Humalog U-100 Insulin] 100 unit/mL Solution 2 - 8 sliding scale dose SUBCUT QIDACHS Protocol: Insulin Correction Scale Less than or equal to 110 ---- Give (units): 0 111 to 150 Give (units): 0 151 to 200 Give (units): 2 201 to 250 Give (units): 4 251 to 300 Give (units): 6 301 to 350 Give (units): 8 Greater than 350 Give (units): 10 Call MD if Blood Glucose > : 350 glucagon 1 mg Recon Soln 1 mg SUBCUT Q15M PRN (Reason: Diabeted) Rx Instructions: until target blood sugar attained fluoride (sodium) [PreviDent] 1.1 % Gel 1 appl DENTAL DAILY lorazepam 1 mg tablet 1 mg PO Q12H PRN (Reason: anxiety) Print Language: Unable To Collect
--- NOTE | 2024-07-14 10:43 | P.PNIM_ITS ---
Subjective Subjective Date of Service: 07/14/24 Interval History: denies dyspnea, O2 requirement down to 2L, history limited by TBI, blood cultures cleared Review of Systems Review of Systems: Yes all other systems are reviewed and are negative Physical Exam 2 Vital Signs: Vital Signs: Last Vital Signs Temp 98.1 F 07/14/24 07:11 Pulse 62 07/14/24 07:11 Resp 19 07/14/24 07:11 BP 167/81 H 07/14/24 07:11 Pulse Ox 94 07/14/24 07:11 O2 Del Method Nasal Cannula 07/14/24 07:11 O2 Flow Rate 2 07/14/24 07:11 FiO2 30 07/12/24 12:00 BMI result Body Mass Index 39.4 Gen: in no acute distress HEENT: sclera anicteric, moist mucus membranes Neck: supple Lungs: diminished L base Heart: regular rate and rhythm, no murmurs Abd: soft, non-tender, non-distended Ext: no edema Skin: warm/well-perfused Neuro: alert, disoriented Psych: impaired insight Objective Data Active Medications Albuterol Sulfate (Albuterol Sulfate 90 Mcg 8 Gm Inhaler) 2 puff INHALE Q6H PRN PRN Reason: Bronchospasm/SOB Amoxicillin/Clavulanate Potassium (Amoxicillin/Potassium Clav 875 Mg Tablet) 875 mg PO BID [facility] Aspirin (Aspirin Enteric Coated 81 Mg Tablet.) 81 mg PO DAILY [facility] Last Admin: 07/14/24 09:41 Dose: 81 mg Documented By: JORGE LUIS Atorvastatin Calcium (Atorvastatin Calcium 10 Mg Tablet) 10 mg PO BEDTIME [facility] Last Admin: 07/13/24 20:00 Dose: 10 mg Documented By: OLGA Enoxaparin Sodium (Enoxaparin Sodium 40 Mg/0.4 Ml Syringe) 40 mg SUBCUT Q24H [facility] Last Admin: 07/13/24 15:03 Dose: 40 mg Documented By: BRIGHT Insulin Glargine (Insulin Glargine,Hum.Rec.Anlog 100 Unit/Ml 10 Ml Vial) 15 unit SUBCUT DAILY [facility] Last Admin: 07/14/24 09:41 Dose: 15 unit Documented By: JORGE LUIS Insulin Human Lispro (Insulin Lispro 100 Unit/Ml 3 Ml Vial) 0 unit SUBCUT QIDACHS [facility]; Protocol Last Admin: 07/14/24 09:41 Dose: 2 unit Documented By: JORGE LUIS [place] Carbonate ([place] Carbonate 300 Mg Tablet) 450 mg PO BID [facility] Last Admin: 07/14/24 09:40 Dose: 450 mg Documented By: JORGE LUIS Quetiapine Fumarate (Quetiapine Fumarate 100 Mg Tablet) 100 mg PO BID [facility] Last Admin: 07/14/24 09:41 Dose: 100 mg Documented By: JORGE LUIS Topiramate (Topiramate 25 Mg Tablet) 50 mg PO BID [facility] Last Admin: 07/14/24 09:41 Dose: 50 mg Documented By: JORGE LUIS Labs 07/14/24 06:27 07/14/24 06:27 Labs: Laboratory Results - last 24 hr 07/13/24 07/13/24 07/13/24 13:52 15:40 20:11 MCV MCH MCHC RDW Plt Count MPV Immature Gran % (Auto) Neut % (Auto) Lymph % (Auto) [place] % (Auto) Eos % (Auto) Baso % (Auto) Lymph # (Auto) [place] # (Auto) Eos # (Auto) Baso # (Auto) Abs Immat Gran (auto) Absolute Neuts (auto) Absolute Nucleated RBC Nucleated RBC % (auto) VBG pH VBG pCO2 VBG pO2 VBG HCO3 VBG O2 Saturation VBG Base Excess Anion Gap Estim Creat Clear Calc Estimated GFR POC Glucose 118 H 107 191 H Random Glucose Calcium Phosphorus Magnesium Albumin 07/14/24 07/14/24 07/14/24 06:27 06:31 07:37 MCV 99.6 H MCH 28.8 MCHC 28.9 L RDW 14.4 Plt Count 179 MPV 11.0 Immature Gran % (Auto) 0.4 Neut % (Auto) 77.3 H Lymph % (Auto) 11.1 L [place] % (Auto) 6.0 Eos % (Auto) 4.9 H Baso % (Auto) 0.3 Lymph # (Auto) 1.1 L [place] # (Auto) 0.6 Eos # (Auto) 0.5 H Baso # (Auto) 0.0 Abs Immat Gran (auto) 0.04 H Absolute Neuts (auto) 7.4 Absolute Nucleated RBC 0.000 Nucleated RBC % (auto) 0.0 VBG pH 7.40 VBG pCO2 64 VBG pO2 48 VBG HCO3 40 H VBG O2 Saturation 73.0 VBG Base Excess 12.7 Anion Gap 12 Estim Creat Clear Calc 126.4 Estimated GFR > 60 POC Glucose 180 H Random Glucose 208 H Calcium 8.8 Phosphorus 3.3 Magnesium 2.3 Albumin 3.5 Microbiology Microbiology Results: Microbiology 07/08/24 14:07 Blood Culture - Final Blood - Venous No growth after 5 days. Assessment and Plan (1) Bacteremia: Status: Acute Plan d7 for 63yo LTC resident at [facility] admitted to ICU and intubated for acute/chronic hypoxic/hypercarbic respiratory failure due to aspiration pneumonia, underwent bronchoscopy 07/09 which showed intraluminal obstruction and possibly extraluminal obstruction in the left main and left lower lobe bronchus; extubated 07/12/24 and stepped down to telemetry unit acute/chronic hypoxic/hypercarbic respiratory failure due to aspiration pneumonia - treated with cefepime + linezolid 07/07-07/12, ampicillin-sulbactam 07/12- - sputum culture positive for PCN-sensitive Strep pneumoniae - pathology from bronchoscopy 07/09: Lung, left lower lobe, endobronchial biopsy: Predominantly blood, fibrin and and rare fragments of inflamed bronchial tissue; negative for malignancy (see comment). COMMENT: The quantity of tissue present may not be patient admitting representative of the targeted lesion. Clinical and imaging correlation advised - currently on 2L Enterococcus + Aerococcus bacteremia - cleared, continue ampicillin-sulbactam and consult ID pericardial effusion - TTE 07/09: 1. Normal LV ejection fraction of 60 65% with pseudonormal filling pattern 2. Dilated right ventricle with preserved systolic function by TAPSE 3. Mild biatrial enlargement 4. RV systolic pressure appears to be elevated although can not be accurately estimated due to indeterminate right atrial pressures as patient is on positive pressure ventilation 5. Small to moderate pericardial effusion more prominent near the left ventricle without clear evidence of cardiac tamponade - will consult Cardiology DM2 - basal-bolus insulin HLD - atorvastatin TBI - continue lithium, topiramate, quetiapine COPD without acute exacerbation - prn albuterol VTE ppx - enoxaparin dispo - return to [facility] Total time managing care of this patient today: 50 minutes. Quality Stroke Does the patient have a stroke diagnosis?: No VTE Prior VTE?: No VTE Risk Level:: Medical - moderate - high VTE Device Contraindication: N/A - Device Ordered VTE Drug Contraindication: N/A - Med Ordered
[2024-07-14 12:00] VITALS: BP 167/84; PULSE 73; RESP 18; TEMP 36.7; O2SAT 92
[2024-07-14 12:13] LABS: Glucose, Whole Blood 142 mg/dL (60-115)
--- NOTE | 2024-07-14 14:55 | W.PM.IDCN ---
History of Present Illness Data of Consult Service Date: 07/14/24 Requesting physician: Pauline Sepulveda Primary Care Provider: Hilario Blank DO HPI Reason for consult: bacteremia,enterococcus faecalis and aerococcus,1/2 He presents with being found blue and came to ER . He was hypoxic and then became more alert. He has one of two blood cultures on 07/08 enterococcus faecalis and aerococcus. He has negative TTE. Review of Systems Review of Systems: Yes all other systems are reviewed and are negative [facility] Past Medical History Medical History Pulmonary edema Encephalopathy Non-ST elevation [place] (NSTEMI) Diabetes mellitus Epilepsy Acute respiratory failure with hypoxia and hypercarbia Aspiration pneumonia Leukocytosis COPD (chronic obstructive pulmonary disease) TBI (traumatic brain injury) Family History Family history: reviewed and not pertinent Social History Social History Household Members: Unknown / Unable to assess Housing: Unknown / Unable to assess Do you presently have visiting nurse or other home services: No ([facility]ident) Comment: 1:[address] at this time Patient Tobacco Use Status: Tobacco use Unknown Tobacco use type: Cigarette Cigarettes Per Day: 8 e-Cigarette/Vaping Use: Never Used Second Hand Smoke Exposure: No Advance Directives Date on File: 03/15/24 service: No Meds Allergies Allergy/AdvReac Type Severity Reaction Status Date / Time vancomycin Allergy Severe Redness of Verified 07/08/24 13:42 Skin Active Medications: Current Medications Albuterol Sulfate (Albuterol Sulfate 90 Mcg 8 Gm Inhaler) 2 puff INHALE Q6H PRN PRN Reason: Bronchospasm/SOB Aspirin (Aspirin Enteric Coated 81 Mg Tablet.) 81 mg PO DAILY [facility] Last Admin: 07/14/24 09:41 Dose: 81 mg Atorvastatin Calcium (Atorvastatin Calcium 10 Mg Tablet) 10 mg PO BEDTIME [facility] Last Admin: 07/13/24 20:00 Dose: 10 mg Enoxaparin Sodium (Enoxaparin Sodium 40 Mg/0.4 Ml Syringe) 40 mg SUBCUT Q24H [facility] Last Admin: 07/13/24 15:03 Dose: 40 mg Ampicillin Sodium/Sulbactam (Sodium 3 gm/ Sodium Chloride) 100 mls @ 200 mls/hr IV Q6H [facility] Insulin Glargine (Insulin Glargine,Hum.Rec.Anlog 100 Unit/Ml 10 Ml Vial) 15 unit SUBCUT DAILY [facility] Last Admin: 07/14/24 09:41 Dose: 15 unit Insulin Human Lispro (Insulin Lispro 100 Unit/Ml 3 Ml Vial) 0 unit SUBCUT QIDACHS [facility]; Protocol Last Admin: 07/14/24 12:13 Dose: Not Given [place] Carbonate ([place] Carbonate 300 Mg Tablet) 450 mg PO BID [facility] Last Admin: 07/14/24 09:40 Dose: 450 mg Quetiapine Fumarate (Quetiapine Fumarate 100 Mg Tablet) 100 mg PO BID [facility] Last Admin: 07/14/24 09:41 Dose: 100 mg Topiramate (Topiramate 25 Mg Tablet) 50 mg PO BID [facility] Last Admin: 07/14/24 09:41 Dose: 50 mg Home Medications ?Medication ?Instructions ?Recorded ?Confirmed ?Last Taken ?Type acetaminophen 325 mg tablet 650 mg PO Q6H PRN Fever Or Pain 03/15/24 07/08/24 Unknown History albuterol sulfate 90 mcg/actuation 2 puff inhalation Q6H PRN 03/15/24 07/08/24 Unknown History aerosol inhaler Bronchospasm/SOB aspirin 81 mg tablet,delayed 81 mg PO DAILY 03/15/24 07/08/24 Unknown History release atorvastatin 10 mg tablet 10 mg PO BEDTIME 03/15/24 07/08/24 Unknown History bisacodyl 10 mg rectal suppository 10 mg [place] DAILY PRN constipation if 03/15/24 07/08/24 Unknown History senna ineffective fexofenadine 180 mg tablet 180 mg PO DAILY 03/15/24 07/08/24 Unknown History fluticasone furoate 100 1 inh inhalation DAILY 03/15/24 07/08/24 Unknown History mcg-vilanterol 25 mcg/dose inhalation powder (Breo Ellipta) guaifenesin 200 mg/5 mL oral liquid 400 mg PO Q4H PRN Congestion 03/15/24 07/08/24 Unknown History lithium carbonate 150 mg capsule 150 mg PO BID 03/15/24 07/08/24 Unknown History lithium carbonate 300 mg capsule 300 mg PO BID 03/15/24 07/08/24 Unknown History melatonin 3 mg tablet 9 mg PO BEDTIME 03/15/24 07/08/24 Unknown History ondansetron HCl 8 mg tablet 8 mg PO Q6H PRN nausea/vomiting 03/15/24 07/08/24 Unknown History peg [id number] 1 2 drp ophthalmic (eye) Q8H PRN 03/15/24 07/08/24 Unknown History %-0.2 %-0.2 % eye drops itchy eyes (Artificial Tears ([id number])) propranolol 10 mg tablet 5 mg PO BID 03/15/24 07/08/24 Unknown History sennosides 8.6 mg-docusate sodium 1 tab-cap PO BID 03/15/24 07/08/24 Unknown History 50 mg tablet (Senna with Docusate Sodium) simethicone 80 mg tablet 80 mg PO Q6H PRN 03/15/24 07/08/24 Unknown History flatulence/bloating sodium phosphates 19 gram-7 118 ml [place] DAILY PRN constipation 03/15/24 07/08/24 Unknown History gram/118 mL enema (Fleet Enema) if bisacodyl supp ineffective tamsulosin 0.4 mg capsule 0.4 mg PO BEDTIME 03/15/24 07/08/24 Unknown History tiotropium bromide 2.5 2 puff inhalation DAILY 03/15/24 07/08/24 Unknown History mcg/actuation mist for inhalation (Spiriva Respimat) topiramate 50 mg tablet 50 mg PO BID 03/15/24 07/08/24 Unknown History trazodone 50 mg tablet 50 mg PO BEDTIME 03/15/24 07/08/24 Unknown History doxycycline hyclate 100 mg capsule 100 mg PO BID 07/08/24 07/08/24 Unknown History fluoride (sodium) 1.1 % dental gel 1 appl dental DAILY 07/08/24 07/08/24 Unknown History (PreviDent) glucagon 1 mg solution for 1 mg subcut Q15M PRN Diabeted 07/08/24 07/08/24 Unknown History injection insulin lispro 100 unit/mL 2 - 8 sliding scale dose subcut 07/08/24 07/08/24 Unknown History subcutaneous solution (Humalog QIDACHS U-100 Insulin) lorazepam 1 mg tablet 1 mg PO Q12H PRN anxiety 07/08/24 07/08/24 Unknown History metformin 1,000 mg tablet 1,000 mg PO BIDWM 07/08/24 07/08/24 Unknown History sennosides 8.6 mg tablet (senna) 8.6 mg PO DAILY PRN Constipation 07/08/24 07/08/24 Unknown History Physical Exam Vital Signs: Vital Signs: Last Vital Signs Temp 98.1 F 07/14/24 12:00 Pulse 73 07/14/24 12:00 Resp 18 07/14/24 12:00 BP 167/84 H 07/14/24 12:00 Pulse Ox 92 07/14/24 12:00 O2 Del Method Nasal Cannula 07/14/24 12:00 O2 Flow Rate 2 07/14/24 12:00 FiO2 30 07/12/24 12:00 BMI result Body Mass Index 39.4 Const: General: cooperative HEENT: Head: Yes normal to inspection Face and sinus: Yes normal facial exam Mouth: Normal oral and palatal mucosa present Teeth and gingiva: dentition normal Eyes: General: appearance normal, both eyes and all related structures Pupils: Equal, round and reactive pupils present Resp: Effort & Inspection: normal respiratory effort Cardio: Rate: regular rate Rhythm: regular rhythm GI: Palpation (GI): Soft to palpation and nontender : General: Yes no CVA tenderness Back/Spine/Pelvis: Back: no CVA tenderness Skin: General skin exam: no rashes or lesions noted Neuro: General: moves all extremities Cranial nerves: Yes Equal, round and reactive pupils present Extrem: General: Yes normal to inspection Psych: Appearance: grossly normal Results Labs 07/14/24 06:27 07/14/24 06:27 Labs: Short CBC 07/14/24 Range/Units 06:27 WBC 9.6 (4.8-10.8) X10*3/uL Hgb 13.8 L (14.0-18.0) g/dl Hct 47.7 (42.0-52.0) % Plt Count 179 (160-400) X10*3/uL BMP 07/14/24 06:27 Sodium 145 Potassium 3.7 Chloride 101 Carbon Dioxide 36 H BUN 16 Creatinine 0.68 Calcium 8.8 Liver Function 07/14/24 Range/Units 06:27 Albumin 3.5 (3.5-5.0) g/dL Microbiology Microbiology Results: Microbiology 07/08/24 14:07 Blood - Venous Blood Culture - Final No growth after 5 days. 07/10/24 12:42 Blood - Venous Blood Culture - Preliminary No growth after 48 hours. 07/10/24 11:54 Blood - Venous Blood Culture - Preliminary No growth after 48 hours. 07/08/24 14:07 Blood - Venous Blood Culture - Final Enterococcus faecalis Aerococcus species 07/09/24 14:15 Bronch Rll Gram Stain - Final 07/09/24 14:15 Bronch Rll - Final No growth after 2 days 07/09/24 14:15 Bronch Lll Gram Stain - Final 07/09/24 14:15 Bronch Lll - Final No growth after 2 days 07/08/24 16:31 Trachea Gram Stain - Final 07/08/24 16:31 Trachea Sputum Culture - Final Streptococcus pneumoniae 07/08/24 16:36 Urine clean catch - Clean Catch Midstream Urine Culture - Final No growth. Assessment and Plan (1) Acute on chronic respiratory failure with hypoxia and hypercapnia: Status: Acute (2) Bacteremia: Status: Acute Plan Possible contaminant 1/2 enterococcus along with aerococcus. He has negative TTE and cleared organisms Can continue Unasyn for now and then 14 days Augmentin on discharge and check blood culture one week after discharge and two weeks after.
[2024-07-14 15:57] VITALS: BP 132/54; PULSE 67; RESP 19; TEMP 36.7; O2SAT 95
[2024-07-14 16:11] LABS: Glucose, Whole Blood 150 mg/dL (60-115)
[2024-07-14] MEDS: Enoxaparin Sodium 40 MG/0.4 ML SYRINGE SUBCUT (16:19)
--- NOTE | 2024-07-14 16:24 | MHC.CM.PN ---
Patient is not medically clear to discharge. ID consult ordered for Bacteremia. DP return to [facility] via BLS Once medically cleared.
--- NOTE | 2024-07-14 17:55 | PC.NURSE ---
At 1730 pt been bladder scanned for 517; Pt retaining and already had two straight caths; Per Dr. Sepulveda, samuels cath to be placed; Samuels cath placed by this RN and removed 800 ml of urine; Pt tolerated well and to be monitored; Bed in the lowest position and call bautista within reach.
[2024-07-14 19:47] VITALS: BP 170/78; PULSE 63; RESP 18; TEMP 36.9; O2SAT 92
[2024-07-14 20:15] LABS: Glucose, Whole Blood 167 mg/dL (60-115)
[2024-07-14] MEDS: Atorvastatin Calcium 10 MG TABLET PO (21:02)
[2024-07-15] VITALS: BP 153/86; PULSE 67; RESP 20; TEMP 36.7; O2SAT 92
[2024-07-15 04:00] VITALS: BP 162/83; PULSE 66; RESP 20; TEMP 36.6; O2SAT 92
[2024-07-15 05:13] VITALS: BMI 41.4
[2024-07-15] MEDS: Ampicillin Sodium/Sulbactam Na 3 GM in 0.9 % Sodium Chloride 100 ML IV ×2 (06:06→11:53)
[2024-07-15 07:24] VITALS: BP 145/79; PULSE 60; RESP 18; TEMP 36.9; O2SAT 100
[2024-07-15 07:28] LABS: Glucose, Whole Blood 130 mg/dL (60-115)
[2024-07-15] MEDS: Insulin Glargine,Hum.rec.anlog 100 UNIT/ML 10 ML VIAL 15 UNIT SUBCUT (09:06)
[2024-07-15] MEDS: Topiramate 25 MG TABLET 50 MG PO (09:06)
[2024-07-15] MEDS: Lithium Carbonate 300 MG TABLET 450 MG PO (09:07)
[2024-07-15] MEDS: Aspirin Enteric Coated 81 MG TABLET.DR PO (09:08)
[2024-07-15] MEDS: QUEtiapine Fumarate 100 MG TABLET PO (09:08)
[2024-07-15 11:38] VITALS: BP 140/80; PULSE 82; RESP 16; TEMP 36.7; O2SAT 98
--- NOTE | 2024-07-15 11:38 | PM.DS ---
DS: Providers Provider Date of Service: 07/15/24 Date of admission: 07/08/24 14:53 Date of discharge: 07/15/24 Primary care physician: Hilario Blank DO Consults: 07/09/24 12:30 Consult to Wound Care Routine Reason for consultation: healing PI to coccyx on admission Has provider been notified: Yes 07/14/24 10:40 Consult to Infectious Diseases Routine Consulting Provider: [facility] Reason for consultation: Enterococcus faecalis bacteremia, cleared 07/14/24 10:54 Consult to Cardiology Routine Consulting Provider: [facility] Reason for consultation: pericardial efusion DS: Diagnosis Discharge Diagnosis (1) Acute on chronic respiratory failure with hypoxia and hypercapnia: Status: Acute (2) Bacteremia: Status: Acute (3) Pneumonia: Status: Acute (4) Aspiration into airway: Status: Acute (5) Pericardial effusion: Status: Acute (6) Urinary retention: Status: Acute DS: Summary Hospital Course Hospital Course: From the history and physical by the admitting on air director, 07/08/24, Emmett Comer MD: 63-year-old male with past medical history of chronic hypoxic respiratory failure secondary to COPD , TBI living in a senior living was found hypoxic turn blue this morning so was brought into the ED. the onset was acute, exacerbated by loss of oxygen in the tag, his oxygen tank vent empty, no relieving factors, associated with shortness of breath and dyspnea. In the ED he was found to be hypoxic, ABG showed combined hypercapnic and hypoxic respiratory failure so he was intubated and placed on ventilator support MICU is consulted for admission. of note, previously patient has been DNI DNR but he recently said his sister to revert. 63yo LT resident at [facility] admitted to ICU and intubated for acute/chronic hypoxic/hypercarbic respiratory failure due to aspiration pneumonia, underwent bronchoscopy 07/09 which showed intraluminal obstruction and possibly extraluminal obstruction in the left main and left lower lobe bronchus; extubated 07/12/24 and stepped down to telemetry unit. Hospital course by problem: acute/chronic hypoxic/hypercarbic respiratory failure due to aspiration pneumonia - treated with cefepime + linezolid 07/07-07/12, ampicillin-sulbactam 07/12-07/15 - sputum culture positive for PCN-sensitive Strep pneumoniae - pathology from bronchoscopy 07/09: Lung, left lower lobe, endobronchial biopsy: Predominantly blood, fibrin and and rare fragments of inflamed bronchial tissue; negative for malignancy (see comment). COMMENT: The quantity of tissue present may not be help desk representative of the targeted lesion. Clinical and imaging correlation advised - currently on 2L o2 via nasal cannula - 1 of 2 blood cultures with Enterococcus faecalis+ Aerococcus bacteremia. Per Infectious Disease professional services consultant likely contaminant. Discharged on 14 days of amoxicillin-clavulanate and should repeat blood culture in 1 and 2 eeks. aspiration - COOLER MAN following, advance diet to NDD3 with NTL enterovirus/rhinovirus infection - droplet precautions discontinued after 7 days incidental pericardial effusion - TTE 07/09: 1. Normal LV ejection fraction of 60 65% with pseudonormal filling pattern 2. Dilated right ventricle with preserved systolic function by TAPSE 3. Mild biatrial enlargement 4. RV systolic pressure appears to be elevated although can not be accurately estimated due to indeterminate right atrial pressures as patient is on positive pressure ventilation 5. Small to moderate pericardial effusion more prominent near the left ventricle without clear evidence of cardiac tamponade - discussed with Cardiology; outpatient consultation urinary retention - Martins placed for urinary retention. Voiding trial after 2-3 days. He was discharged back to [facility]. Time Attestation Discharge Coordination Time (in mins): 40 Quality: Safe Use of Opioids Does Pt have an Active Cancer Diagnosis on the Problem List?: No Quality: Stroke Does the patient have a stroke diagnosis?: No Physical Exam Vital Signs: Vital Signs: Last Vital Signs Temp 98.4 F 07/15/24 07:24 Pulse 60 07/15/24 07:24 Resp 18 07/15/24 07:24 BP 145/79 H 07/15/24 07:24 Pulse Ox 100 07/15/24 07:24 O2 Del Method Nasal Cannula 07/15/24 07:24 O2 Flow Rate 6 07/15/24 07:24 FiO2 30 07/12/24 12:00 BMI result Body Mass Index 41.4 Gen: in no acute distress HEENT: sclera anicteric, moist mucus membranes Neck: supple Lungs: diminished L base Heart: regular rate and rhythm, no murmurs Abd: soft, non-tender, non-distended Ext: no edema Skin: warm/well-perfused Neuro: alert, disoriented Psych: impaired insight DS: Data Data Completed and Pending Completed studies during hospitalization [Text1]: Laboratory Results WBC 9.6 X10*3/uL (4.8-10.8) 07/14/24 06:27 RBC 4.79 X10*6/uL (4.60-5.80) 07/14/24 06:27 Hgb 13.8 g/dl (14.0-18.0) L 07/14/24 06:27 Hct 47.7 % (42.0-52.0) 07/14/24 06:27 MCV 99.6 fL (80.0-98.0) H 07/14/24 06:27 MCH 28.8 pg (27.0-33.0) 07/14/24 06: MCHC 28.9 g/dl (31.0-36.0) L 07/14/24 06:27 RDW 14.4 % (11.0-16.0) 07/14/24 06:27 Plt Count 179 X10*3/uL (160-400) 07/14/24 06:27 MPV 11.0 fL (9.4-12.4) 07/14/24 06:27 Immature Gran % (Auto) 0.4 % (0.0-0.4) 07/14/24 06:27 Neut % (Auto) 77.3 % (45-73) H 07/14/24 06:27 Lymph % (Auto) 11.1 % (20-40) L 07/14/24 06:27 [place] % (Auto) 6.0 % (2-11) 07/14/24 06:27 Eos % (Auto) 4.9 % (0-4) H 07/14/24 06:27 Baso % (Auto) 0.3 % (0-2) 07/14/24 06:27 Lymph # (Auto) 1.1 X10*3/uL (1.2-4.9) L 07/14/24 06:27 [place] # (Auto) 0.6 X10*3/uL (0.1-1.2) 07/14/24 06:27 Eos # (Auto) 0.5 X10*3/uL (0.0-0.4) H 07/14/24 06:27 Baso # (Auto) 0.0 X10*3/uL (0.0-0.2) 07/14/24 06:27 Abs Immat Gran (auto) 0.04 X10*3/uL (0.00-0.03) H 07/14/24 06:27 Absolute Neuts (auto) 7.4 x10*3/uL (2.0-8.3) 07/14/24 06:27 Absolute Nucleated RBC 0.000 X10*3/uL (0.0-0.012) 07/14/24 06:27 Nucleated RBC % (auto) 0.0 /100WBC (0.0-0.2) 07/14/24 06:27 Smear Tech's Comments VERIFIED 07/09/24 05:52 PT 12.3 SEC (10.9-12.4) 07/08/24 13:44 INR 1.1 (0.9-1.1) 07/08/24 13:44 O2 Saturation 100.0 % 07/08/24 14:58 ABG pH at Pt Temp 7.39 (7.35-7.45) 07/08/24 14:58 ABG pCO2 at Pt Temp 48 mmHg (32-45) H 07/08/24 14:58 ABG pO2 at Pt Temp 356 mmHg (83-108) H 07/08/24 14:58 ABG HCO3 30 mmol/L (22-26) H 07/08/24 14:58 ABG Base Excess (Actual) 4.3 mmol/L 07/08/24 14:58 VBG pH 7.40 (7.32-7.43) 07/14/24 06:31 VBG pCO2 64 mmHg 07/14/24 06:31 VBG pO2 48 mmHg 07/14/24 06:31 VBG HCO3 40 mmol/L (22-26) H 07/14/24 06:31 VBG O2 Saturation 73.0 % 07/14/24 06:31 VBG Base Excess 12.7 mmol/L 07/14/24 06:31 Sodium 145 mmol/L (135-145) 07/14/24 06:27 Potassium 3.7 mmol/L (3.3-5.1) 07/14/24 06:27 Chloride 101 mmol/L (96-108) 07/14/24 06:27 Carbon Dioxide 36 mmol/L (22-29) H 07/14/24 06:27 Anion Gap 12 (12-20) 07/14/24 06:27 BUN 16 mg/dL (9-16) 07/14/24 06:27 Creatinine 0.68 mg/dL (0.5-1.4) 07/14/24 06:27 Estim Creat Clear Calc 126.4 07/14/24 06:27 Estimated GFR > 60 07/14/24 06:27 POC Glucose 204 mg/dL (60-115) H 07/15/24 11:36 Random Glucose 208 mg/dL (60-115) H 07/14/24 06:27 Lactic Acid 0.9 mmol/L (0.5-2.0) 07/08/24 14:07 Calcium 8.8 mg/dL (8.4-10.2) 07/14/24 06:27 Phosphorus 3.3 mg/dL (2.7-4.5) 07/14/24 06:27 Magnesium 2.3 mg/dL (1.6-2.6) 07/14/24 06:27 Total Bilirubin 0.4 mg/dL (0.0-1.0) 07/12/24 05:14 AST 45 U/L (5-37) H 07/12/24 05:14 ALT 30 U/L (0-40) 07/12/24 05:14 Alkaline Phosphatase 82 U/L (39-117) 07/12/24 05:14 Troponin I High Sens 47.7 ng/L (<3.5-35.0) H D 07/08/24 13:44 Total Protein 6.4 g/dL (6.5-8.0) L 07/12/24 05:14 Albumin 3.5 g/dL (3.5-5.0) 07/14/24 06:27 TSH 1.81 uIU/mL (0.32-4.0) 07/12/24 05:14 Thyroxine (T4) 4.2 ug/dL (4.5-12.0) L 07/12/24 05:14 Urine Color Yellow 07/08/24 14:48 Urine Appearance Clear 07/08/24 14:48 Urine pH 5.5 (5.0-9.0) 07/08/24 14:48 Ur Specific [place] 1.015 (1.005-1.025) 07/08/24 14:48 Urine Protein 100 (2+) mg/dL (Neg-Trace) H 07/08/24 14:48 Urine Glucose (UA) Negative mg/dL (Negative) 07/08/24 14:48 Urine Ketones Negative mg/dL (Negative) 07/08/24 14:48 Urine Blood Negative (Negative) 07/08/24 14:48 Urine Nitrite Negative (Negative) 07/08/24 14:48 Ur Leukocyte Esterase Trace (Negative) H 07/08/24 14:48 Urine RBC 0-2 /HPF (0-2) 07/08/24 14:48 Urine WBC 6-10 /HPF (0-5) 07/08/24 14:48 Ur Squamous Epith Cells 0-2 /HPF (0-2) 07/08/24 14:48 Urine Bacteria None Seen (None Seen) 07/08/24 14:48 Hyaline Casts 6-10 /LPF (0-2) 07/08/24 14:48 Nasal Screen MRSA (PCR) POSITIVE (Negative) A 07/08/24 16:31 Nasal S. aureus Screen POSITIVE (Negative) A 07/08/24 16:31 Nasal MRSA/S.aureus Interp SEE NOTE 07/08/24 16:31 Respiratory Panel Harris See Note 07/08/24 16:31 Adenovirus (Rapid PCR) Not Detected (Not Detect.) 07/08/24 16:31 B.pert (TEM-PCR) Not Detected (Not Detect.) 07/08/24 16:31 B.parapertussis DNA PCR Not Detected (Not Detect.) 07/08/24 16:31 C. pneumoniae DNA (PCR) Not Detected (Not Detect.) 07/08/24 16:31 Coronavirus OC43 (PCR) Not Detected (Not Detect.) 07/08/24 16:31 Coronavirus HKU1 (PCR) Not Detected (Not Detect.) 07/08/24 16:31 Coronavirus 229E (PCR) Not Detected (Not Detect.) 07/08/24 16:31 Coronavirus NL63 (PCR) Not Detected (Not Detect.) 07/08/24 16:31 Human Metapneumovir PCR Not Detected (Not Detect.) 07/08/24 16:31 Influenza A (RT-PCR) Not Detected (Not Detect.) 07/08/24 16:31 Influenza A (H1) PCR Not Detected (Not Detect.) 07/08/24 16:31 Influ A (H1/09) PCR Not Detected (Not Detect.) 07/08/24 16:31 Influenza A (H3) PCR Not Detected (Not Detect.) 07/08/24 16:31 Influenza Type A (PCR) NEGATIVE (Negative) 07/08/24 13:44 Influenza B (RT-PCR) Not Detected (Not Detect.) 07/08/24 16:31 Influenza Type B (PCR) NEGATIVE (Negative) 07/08/24 13:44 M. pneumoniae (PCR) Not Detected (Not Detect.) 07/08/24 16:31 Parainfluenza 1 (PCR) Not Detected (Not Detect.) 07/08/24 16:31 Parainfluenza 2 (PCR) Not Detected (Not Detect.) 07/08/24 16:31 Parainfluenza 3 (PCR) Not Detected (Not Detect.) 07/08/24 16:31 Parainfluenza 4 (PCR) Not Detected (Not Detect.) 07/08/24 16:31 RSV (PCR) Not Detected (Not Detect.) 07/08/24 16:31 RSV RNA Qual (PCR) NEGATIVE (Negative) 07/08/24 13:44 Entero/Rhino (PCR) Detected (Not Detect.) A 07/08/24 16:31 SARS-CoV-2 RNA (RT-PCR) Not Detected (Not Detect.) 07/08/24 16:[address] 07/08/24 15:15 IMPRESSION: Post obstructing pneumonia with atelectatic component, left lung. Concerning asbestos exposure. Mesothelioma cannot be entirely excluded. Acute airspace disease, right lower lung lobe. Pericardial effusion, small to moderate volume. Coronary artery disease and atherosclerosis disease. Cholelithiasis. Fleischner guidelines were followed. Electronically signed by: Wenceslao Jacobson MD 07/08/2024 03:[address] 07/08/24 15:26 IMPRESSION: 1. Mildly motion degraded examination. 2. No acute intracranial abnormality. No intracranial hemorrhage or mass effect. No CT evidence of edematous territory infarct. 3. Bifrontal and anterior right temporal cystic encephalomalacia, likely from old trauma. 4. Patient is intubated. Paranasal sinus disease and fluid in the posterior nasopharynx is nonspecific this regard. Electronically signed by: Moose Silva MD 07/08/2024 03:43 PM EDT Discharge Plan Discharge Anticipated Discharge Date/Time: 07/15/24 11:30 Patient Disposition: Xfer [facility] Discharge Diagnosis: respiratory failure pneumonia aspiration possible bacteremia pericardial effusion, incidental urinary retention Referrals: [facility] [Outside] - 1 Week Hilario Blank DO [Primary Care Provider] - 1 Week Yogi Marinelli MD [Physician] - 1 Month Discharge Medications: New amoxicillin-pot clavulanate 875-125 mg tablet 1 tab PO BID Qty: 28 0RF Continued acetaminophen 325 mg Tablet 650 mg PO Q6H PRN (Reason: Fever Or Pain) atorvastatin 10 mg Tablet 10 mg PO BEDTIME fexofenadine 180 mg Tablet 180 mg PO DAILY aspirin 81 mg Tablet,Delayed Release (Dr/Ec) 81 mg PO DAILY Rx Instructions: TAKE WITH A FULL GLASS OF WATER bisacodyl 10 mg Suppository 10 mg AZ DAILY PRN (Reason: constipation if senna ineffective) Fleet Enema 19-7 gram/118 mL Enema 118 ml AZ DAILY PRN (Reason: constipation if bisacodyl supp ineffective) albuterol sulfate 90 mcg/actuation Hfa Aerosol Inhaler 2 puff INHALATION Q6H PRN (Reason: Bronchospasm/SOB) Artificial Tears(sp-lanw-mjyl) 1-0.2-0.2 % Drops 2 drp OPHTHALMIC (EYE) Q8H PRN (Reason: itchy eyes) guaifenesin 200 mg/5 mL Liquid 400 mg PO Q4H PRN (Reason: Congestion) fluticasone furoate-vilanterol [Breo Ellipta] 100-25 mcg/dose Blister With Device 1 inh INHALATION DAILY trazodone 50 mg Tablet 50 mg PO BEDTIME ondansetron HCl 8 mg Tablet 8 mg PO Q6H PRN (Reason: nausea/vomiting) sennosides-docusate sodium [Senna with Docusate Sodium] 8.6-50 mg Tablet 1 tab-cap PO BID lithium carbonate 150 mg Capsule 150 mg PO BID melatonin 3 mg Tablet 9 mg PO BEDTIME propranolol 10 mg Tablet 5 mg PO BID tamsulosin 0.4 mg Capsule 0.4 mg PO BEDTIME lithium carbonate 300 mg Capsule 300 mg PO BID topiramate 50 mg Tablet 50 mg PO BID simethicone 80 mg Tablet 80 mg PO Q6H PRN (Reason: flatulence/bloating) Spiriva Respimat 2.5 mcg/actuation Mist 2 puff INHALATION DAILY insulin glargine [Lantus U-100 Insulin] 100 unit/mL Solution 15 unit subcut DAILY Qty: 1 0RF sennosides [senna] 8.6 mg Tablet 8.6 mg PO DAILY PRN (Reason: Constipation) metformin 1,000 mg Tablet 1,000 mg PO BIDWM insulin lispro [Humalog U-100 Insulin] 100 unit/mL Solution 2 - 8 sliding scale dose SUBCUT QIDACHS Protocol: Insulin Correction Scale Less than or equal to 110 ---- Give (units): 0 111 to 150 Give (units): 0 151 to 200 Give (units): 2 201 to 250 Give (units): 4 251 to 300 Give (units): 6 301 to 350 Give (units): 8 Greater than 350 Give (units): 10 Call MD if Blood Glucose > : 350 glucagon 1 mg Recon Soln 1 mg SUBCUT Q15M PRN (Reason: Diabeted) Rx Instructions: until target blood sugar attained fluoride (sodium) [PreviDent] 1.1 % Gel 1 appl DENTAL DAILY lorazepam 1 mg tablet 1 mg PO Q12H PRN (Reason: anxiety) Discontinued doxycycline hyclate 100 mg Capsule 100 mg PO BID Discharge Orders: Discharge Order (Routine); Ordered 07/15/24 Ordered By: Pauline Sepulveda Diet: NDD3 solids/nectar liquid Activity on Discharge: As tolerated Stand Alone Forms: Patient Portal Discharge page Print Language: Unable To Collect Other Ambulatory Orders: Blood Culture X1 (Routine) Timeframe: 1 Week Facility: [facility] - Location: Laboratory Ordered By: Pauline Sepulveda Care Plan Goals: recovery from pneumonia Health Concerns: respiratory failure - wean oxygen as tolerated pneumonia - take amoxicillin-clavulanate twice daily for 14 days aspiration - NDD3(chopped/advanced) with NECTAR THICK liquids, pills crushed in puree. Patient demonstrates high level of impulsivity, may try to chug liquids if given cup, take too large bites of food, and talk while eating (all aspiration risks) possible bacteremia - repeat blood culture in 1 week and again in 2 weeks pericardial effusion, incidental - outpatient Cardiology referral in 1 month urinary retention - Martins in place, voiding trial in 2-3 days Plan of Treatment: see above Assessment: See Discharge Summary.
--- NOTE | 2024-07-15 11:38 | MHC.CM.PN ---
IMM 07/15/24 Patient is discharged today. He will return to [facility] via BLS. Patient's sister, Tran has been notified of discharge. She is in agreement with the discharge today. Transportation is booked, 1pm clam picker is scheduled. Gina PIERSON has approved the patient to return today. Transport time 1pm reported to KENNA.
[2024-07-15 11:41] LABS: Glucose, Whole Blood 204 mg/dL (60-115)
== END 2024-07-15 13:38 | disposition skilled nursing facility (03) | DRG 871 ==
LOC: HO.ED 14:53 → HO.EDOVER 14:54 → HO.ICU 14:58 → HO.IMC 07-13 13:09
PROVIDERS: Internal Medicine Pulmonary Disease; Nurse Practitioner Acute Care; Physician Assistant Medical; Registered Nurse Community Health; Admitting Provider Internal Medicine Critical Care Medicine; Emergency Provider Emergency Medicine; PCP Hospitalist; Visit Provider Family Medicine
DX: A41.9 Sepsis, unspecified organism (principal); G93.41 Metabolic encephalopathy; R65.21 Severe sepsis with septic shock; J96.21 Acute and chronic respiratory failure with hypoxia; R57.0 Cardiogenic shock; J96.22 Acute and chronic respiratory failure with hypercapnia; J69.0 Pneumonitis due to inhalation of food and vomit; J98.11 Atelectasis; Z68.41 Body mass index [BMI] 40.0-44.9, adult; J44.1 Chronic obstructive pulmonary disease with (acute) exacerbation; I27.81 Cor pulmonale (chronic); D64.9 Anemia, unspecified; E11.9 Type 2 diabetes mellitus without complications; G40.909 Epilepsy, unspecified, not intractable, without status epilepticus; B95.3 Streptococcus pneumoniae as the cause of diseases classified elsewhere; B97.89 Other viral agents as the cause of diseases classified elsewhere; R33.9 Retention of urine, unspecified; B97.10 Unspecified enterovirus as the cause of diseases classified elsewhere; B95.2 Enterococcus as the cause of diseases classified elsewhere; E66.09 Other obesity due to excess calories; Z91.199 Patient's noncompliance with other medical treatment and regimen due to unspecified reason; Z20.822 Contact with and (suspected) exposure to COVID-19; Z22.322 Carrier or suspected carrier of Methicillin resistant Staphylococcus aureus; Z87.820 Personal history of traumatic brain injury; Z79.4 Long term (current) use of insulin; Z79.51 Long term (current) use of inhaled steroids; Z79.82 Long term (current) use of aspirin; Z79.84 Long term (current) use of oral hypoglycemic drugs; Z79.899 Other long term (current) drug therapy
CPT/HCPCS: 0241U; 36415; 36600; 70450; 71045; 71250; 80048; 80053; 81001; 82040; 82803; 82947; 83605; 83735; 84100; 84436; 84443; 84484; 85025; 85610; 87040; 87070; 87071; 87077; 87086; 87186; 87205; 87633; 87640; 87641; 88305; 92610; 93005; 93306; 94002; 94003; 94799; 99284; J0295; J0692; J1650; J1938; J2020; J2250; J2470; J2704; J2919; J3010; P9047; Q9957

== ENCOUNTER → 2024-07-08 13:23 | Outpatient (BNV) | payer MEDICARE, SELFPAY | PROVIDERS: Emergency Provider Emergency Medicine; Visit Provider Radiology Diagnostic Radiology | DX: J18.9 Pneumonia, unspecified organism (principal); J98.4 Other disorders of lung; I31.39 Other pericardial effusion (noninflammatory); I25.10 Atherosclerotic heart disease of native coronary artery without angina pectoris; K80.00 Calculus of gallbladder with acute cholecystitis without obstruction; J34.89 Other specified disorders of nose and nasal sinuses; Z99.11 Dependence on respirator [ventilator] status; I51.7 Cardiomegaly; R91.8 Other nonspecific abnormal finding of lung field; G93.89 Other specified disorders of brain | CPT/HCPCS: 70450; 71045; 71250 ==

== ENCOUNTER → 2024-07-08 13:24 | Outpatient (BNV) | payer MEDICARE, SELFPAY | PROVIDERS: Admitting Provider Internal Medicine Critical Care Medicine; Emergency Provider Emergency Medicine; Visit Provider Internal Medicine Cardiovascular Disease | DX: I45.2 Bifascicular block (principal); I49.9 Cardiac arrhythmia, unspecified; R00.1 Bradycardia, unspecified | CPT/HCPCS: 93010 ==

== ENCOUNTER 2024-07-08 14:53 | Outpatient (BNV) | payer MEDICARE, SELFPAY | END 2024-07-09 07:00 | PROVIDERS: Admitting Provider Internal Medicine Critical Care Medicine; Emergency Provider Emergency Medicine; Visit Provider Internal Medicine Cardiovascular Disease | DX: I31.39 Other pericardial effusion (noninflammatory) (principal); I51.89 Other ill-defined heart diseases; I51.7 Cardiomegaly; I34.81 Nonrheumatic mitral (valve) annulus calcification; I36.1 Nonrheumatic tricuspid (valve) insufficiency | CPT/HCPCS: 93306 ==

== ENCOUNTER 2024-07-08 14:53 | Outpatient (BNV) | payer MEDICARE, SELFPAY | END 2024-07-11 08:26 | PROVIDERS: Admitting Provider Internal Medicine Critical Care Medicine; Emergency Provider Emergency Medicine; Visit Provider Radiology Vascular & Interventional Radiology | DX: Z93.0 Tracheostomy status (principal) | CPT/HCPCS: 71045 ==

== ENCOUNTER → 2024-07-08 14:53 | Outpatient (BNV) | payer MEDICARE, SELFPAY | PROVIDERS: Admitting Provider Internal Medicine Critical Care Medicine; Emergency Provider Emergency Medicine; PCP Hospitalist; Visit Provider Nurse Practitioner Acute Care | DX: J96.21 Acute and chronic respiratory failure with hypoxia (principal); J96.22 Acute and chronic respiratory failure with hypercapnia; R78.81 Bacteremia; J18.9 Pneumonia, unspecified organism; T17.908A Unspecified foreign body in respiratory tract, part unspecified causing other injury, initial encounter; I31.39 Other pericardial effusion (noninflammatory); R33.9 Retention of urine, unspecified | CPT/HCPCS: 99233; 99239; 99499 ==

== ENCOUNTER → 2024-07-08 14:53 | Outpatient (BNV) | payer MEDICARE, SELFPAY | PROVIDERS: Admitting Provider Internal Medicine Critical Care Medicine; Emergency Provider Emergency Medicine; Visit Provider Internal Medicine Critical Care Medicine | DX: J44.1 Chronic obstructive pulmonary disease with (acute) exacerbation (principal); J96.01 Acute respiratory failure with hypoxia; J96.02 Acute respiratory failure with hypercapnia; Z87.820 Personal history of traumatic brain injury; J18.9 Pneumonia, unspecified organism | CPT/HCPCS: 99232; 99291 ==

== ENCOUNTER → 2024-07-08 14:53 | Outpatient (BNV) | payer MEDICARE, SELFPAY | PROVIDERS: Admitting Provider Internal Medicine Critical Care Medicine; Emergency Provider Emergency Medicine; PCP Hospitalist; Visit Provider Internal Medicine Pulmonary Disease | DX: S06.9XAA Unspecified intracranial injury with loss of consciousness status unknown, initial encounter (principal); J44.9 Chronic obstructive pulmonary disease, unspecified; J96.01 Acute respiratory failure with hypoxia; T17.908A Unspecified foreign body in respiratory tract, part unspecified causing other injury, initial encounter; J96.02 Acute respiratory failure with hypercapnia; G40.909 Epilepsy, unspecified, not intractable, without status epilepticus; E11.9 Type 2 diabetes mellitus without complications | CPT/HCPCS: 99291 ==

== ENCOUNTER → 2024-07-08 14:53 | Outpatient (BNV) | payer MEDICARE, SELFPAY | PROVIDERS: Admitting Provider Internal Medicine Critical Care Medicine; Emergency Provider Emergency Medicine; PCP Hospitalist; Visit Provider Internal Medicine | DX: J96.21 Acute and chronic respiratory failure with hypoxia (principal); J96.22 Acute and chronic respiratory failure with hypercapnia; R78.81 Bacteremia; B95.2 Enterococcus as the cause of diseases classified elsewhere | CPT/HCPCS: 99222 ==

== ENCOUNTER 2024-07-21 17:12 | Inpatient (IN) | payer MEDICARE, SELFPAY ==
[2024-07-21] VITALS (26 sets, daily range): BP systolic 65–160; BP diastolic 28–82; PULSE 51–100; RESP 16–20; TEMP 31–38.5; O2SAT 89–98; BMI 36.4
--- NOTE | ~2024-07-21 | CT_ITS ---
CLINICAL HISTORY: bacteremia CT abdomen and pelvis without contrast Comparison: CT/GA/SR - CT CHEST WO IV CON - 07/08/24 15:[address]/SR - CT ABDOMEN PELVIS W IV CON - 03/14/24 19:26 EST Findings: Motion degraded exam Patchy consolidation in the eksw-[id number]-right lung base improved compared with the patient's prior CT chest in late June. Unremarkable gallbladder and solid organs. Bilateral perinephric stranding, nonspecific. Mild dilation of the right-sided collecting system similar to the prior exam. Nonobstructing right-sided stones. Benign-appearing upper pole left renal cyst. No bowel obstruction, pneumoperitoneum, or pneumatosis. Gas within the bladder, possibly related to recent catheterization. Correlation is recommended. Unremarkable prostate. No pelvic fluid collections. No abdominopelvic adenopathy or vascular dilation. IVC filter in place. No acute fracture. Evidence of prior trauma to the pelvis and chest with multiple healed fractures. No acute osseous findings. IMPRESSION: Motion degraded exam. Patchy left greater than right pulmonary parenchymal consolidation improved compared with the prior chest CT. Nonobstructing right renal stones. No ureteral or bladder stones. Mild dilation of the right renal collecting system is unchanged compared with the prior CT in March. Gas within the bladder. Correlate for recent catheterization. This document has been electronically signed by: Jyothi Cast MD on 07/29/2024 09:00:08
--- NOTE | ~2024-07-21 | XR_ITS ---
CLINICAL HISTORY: sob 1 view chest x-ray Comparison: Chest x-ray from 07/11/2024 Findings: The endotracheal tube terminates in the midthoracic trachea. Enteric tube courses below the diaphragm and below the field of view. Improved aeration of the left lung. Mild worsening pulmonary opacities and airspace disease including right upper lobe. Now moderate to severe bilateral pulmonary opacities. Small left pleural effusion persists with mild indeterminate improvement. No pneumothorax in the supine image. Imaged mediastinum with mild cardiomegaly and imaged osseous structures appear unchanged. IMPRESSION: 1. Worsening airspace disease in the right upper lobe may reflect pneumonitis or pulmonary edema. 2. Bilateral moderate to severe pulmonary opacities persists, with mild improved aeration of the left lung compared to 07/11/2024. 3. The endotracheal tube terminates in the midthoracic trachea. This document has been electronically signed by: Tono Courtney MD on 07/21/2024 19:23:09
--- NOTE | 2024-07-21 17:30 | ECG_ITS ---
Test Reason : ams Blood Pressure : */* mmHG Vent. Rate : 96 BPM Atrial Rate : 96 BPM P-R Int : 178 ms QRS Dur : 160 ms QT Int : 390 ms P-R-T Axes : 80 267 61 degrees QTcB Int : 492 ms Normal sinus rhythm Right bundle branch block , plus right ventricular hypertrophy Possible Lateral infarct , age undetermined Abnormal ECG When compared with ECG of 08-Jul-2024 14:33, Premature atrial complexes are no longer Present Vent. rate has increased by 41 bpm Borderline criteria for Lateral infarct are now Present T wave inversion no longer evident in Inferior leads Referred By: Taniya Dean Electronically Signed By: JUSTINE ORTEGA MD
[2024-07-21 17:59] LABS: ABG HCO3 42 mmol/L (22-26); ABG pCO2 100 mmHg (32-45); ABG pH 7.23 (7.35-7.45); ABG pO2 84 mmHg (83-108)
--- NOTE | 2024-07-21 18:08 | ED.URI ---
HPI - URI/Sore Throat General Chief Complaint: Upper Respiratory Symptoms Stated Complaint: sob , ams 15L , recent resp infection Time Seen by Provider: 07/21/24 17:30 History of Present Illness HPI Narrative: Patient is a 63-year-old male with a history of COPD with chronic CO2 retention was intubated in the past. Was on p.o. antibiotics just left the hospital was in the intensive care unit. Presented today with having increasing shortness of breath generalized malaise. Change in mental status. Patient sent in for further evaluation. He is unable to give detailed history secondary to his condition Related Data Home Medications ?Medication ?Instructions ?Recorded ?Confirmed acetaminophen 325 mg tablet 650 mg PO Q6H PRN Fever Or Pain 03/15/24 07/21/24 albuterol sulfate 90 mcg/actuation 2 puff inhalation Q6H PRN 03/15/24 07/21/24 aerosol inhaler Bronchospasm/SOB aspirin 81 mg tablet,delayed 81 mg PO DAILY 03/15/24 07/21/24 release atorvastatin 10 mg tablet 10 mg PO BEDTIME 03/15/24 07/21/24 bisacodyl 10 mg rectal suppository 10 mg PA DAILY PRN constipation 03/15/24 07/21/24 fexofenadine 180 mg tablet 180 mg PO DAILY 03/15/24 07/21/24 fluticasone furoate 100 1 inh inhalation DAILY 03/15/24 07/21/24 mcg-vilanterol 25 mcg/dose inhalation powder (Breo Ellipta) guaifenesin 200 mg/5 mL oral liquid 400 mg PO Q4H PRN Congestion 03/15/24 07/21/24 lithium carbonate 150 mg capsule 150 mg PO BID 03/15/24 07/21/24 lithium carbonate 300 mg capsule 300 mg PO BID 03/15/24 07/21/24 melatonin 3 mg tablet 9 mg PO BEDTIME 03/15/24 07/21/24 propranolol 10 mg tablet 5 mg PO BID 03/15/24 07/21/24 sennosides 8.6 mg-docusate sodium 2 tab-cap PO BID 03/15/24 07/21/24 50 mg tablet (Senna with Docusate Sodium) sodium phosphates 19 gram-7 118 ml PA DAILY PRN constipation 03/15/24 07/21/24 gram/118 mL enema (Fleet Enema) tamsulosin 0.4 mg capsule 0.4 mg PO BEDTIME 03/15/24 07/21/24 tiotropium bromide 2.5 2 puff inhalation DAILY 03/15/24 07/21/24 mcg/actuation mist for inhalation (Spiriva Respimat) topiramate 50 mg tablet 50 mg PO BID 03/15/24 07/21/24 trazodone 50 mg tablet 50 mg PO BEDTIME 03/15/24 07/21/24 fluoride (sodium) 1.1 % dental gel 1 appl dental DAILY 07/08/24 07/21/24 (PreviDent) glucagon 1 mg solution for 1 mg subcut Q15M PRN Diabeted 07/08/24 07/21/24 injection insulin lispro 100 unit/mL 2 - 8 sliding scale dose subcut 07/08/24 07/21/24 subcutaneous solution (Humalog QIDACHS U-100 Insulin) metformin 1,000 mg tablet 1,000 mg PO BIDWM 07/08/24 07/21/24 sennosides 8.6 mg tablet (senna) 8.6 mg PO DAILY PRN Constipation 07/08/24 07/21/24 simethicone 80 mg chewable tablet 80 mg PO Q6H PRN 07/21/24 07/21/24 flatulence/bloating Previous Rx's ?Medication ?Instructions ?Recorded insulin glargine 100 unit/mL 15 unit (0.15 mL) subcut DAILY #1 04/01/24 subcutaneous solution (Lantus mL U-100 Insulin) amoxicillin 875 mg-potassium 1 tab PO BID #28 tabs 07/15/24 clavulanate 125 mg tablet Allergies Allergy/AdvReac Type Severity Reaction Status Date / Time vancomycin Allergy Severe Redness of Verified 07/21/24 17:30 Skin Review of Systems Review of Systems: Unable to obtain review of systems secondary to patient's condition [facility] Past Medical History Attestation statement: The following information was validated with the patient. Medical History Pulmonary edema Encephalopathy Non-ST elevation [place] (NSTEMI) Diabetes mellitus Epilepsy Acute respiratory failure with hypoxia and hypercarbia Aspiration pneumonia Leukocytosis COPD (chronic obstructive pulmonary disease) TBI (traumatic brain injury) Social History Social History Household Members: Unknown / Unable to assess Housing: Unknown / Unable to assess Do you presently have visiting nurse or other home services: No ([facility]ident) Comment: Sitter Patient Tobacco Use Status: Tobacco use Unknown Tobacco use type: Cigarette Cigarettes Per Day: 8 e-Cigarette/Vaping Use: Never Used Second Hand Smoke Exposure: No Advance Directives: Yes Advance Directives on File: Yes Advance Directives Date on File: 03/15/24 service: No Physical Exam Vital Signs: Vital Signs: Last Vital Signs Temp 100.2 F 07/21/24 19:48 Pulse 59 07/21/24 20:08 Resp 20 07/21/24 19:48 BP 117/82 07/21/24 20:08 Pulse Ox 97 07/21/24 19:48 O2 Del Method Room Air 07/21/24 19:48 O2 Flow Rate 6 07/21/24 18:17 FiO2 50 07/21/24 18:28 BMI result Body Mass Index 36.4 Appearance: Lethargic grimace only to painful stimuli Eyes: Pupils equal, round and reactive to light. ENT: Pharynx normal. Neck: Normal inspection. Neck supple. No lymph nodes noted. No crepitus CVS: Normal heart rate and rhythm. Pulses normal. Normal S1 and S2 Respiratory: Diminished breath sounds bilaterally Abdomen: Soft and nontender. No rigidity. No distention. good BS x4 Skin: Skin warm and dry. Normal skin color. Normal skin turgor. Extremities: No lower extremity edema. Neurovascular intact to all extremities. No Lacerations. No Rash Neuro: Lethargic grimace to painful stimuli Medications Administered Generic Name Dose Route Start Last Admin Trade Name Freq PRN Reason Stop Dose Admin Propofol 1,000 mg in 100 mls @ 0 mls/hr 07/21/24 18:45 07/21/24 20:08 Diprivan IVCONT 40 mcg/kg/min .Q0M JENNIFER 27.6 mls/hr Titration Protocol Per Protocol Dexmedetomidine HCl 400 mcg in 100 mls @ 0 mls/hr 07/21/24 18:45 07/21/24 19:37 Precedex IVCONT 1.5 mcg/kg/hr .Q0M JENNIFER 43.13 mls/hr Titration Protocol Per Protocol Phenylephrine HCl 20 mg/ 252 mls @ 0 mls/hr 07/21/24 19:30 07/21/24 19:51 Sodium Chloride IVCONT 0.5 mcg/kg/min .Q0M JENNIFER 43.47 mls/hr Titration Protocol Per Protocol Discontinued Medications Generic Name Dose Route Start Last Admin Trade Name Freq PRN Reason Stop Dose Admin Etomidate 20 mg 07/21/24 18:07 07/21/24 18:17 Etomidate 20 Mg/10 Ml Vial IVPUSH 07/21/24 18:08 20 mg ONCE ONE Administration Cefepime HCl 2 gm in 50 mls @ 100 mls/hr 07/21/24 17:39 07/21/24 19:27 Maxipime IV 07/21/24 18:08 Infused ONCE ONE Infusion Magnesium Sulfate 2 gm in 50 mls @ 25 mls/hr 07/21/24 17:41 07/21/24 19:37 Magnesium Sulfate/H2o IV 07/21/24 19:40 Infused ONCE ONE Infusion Sodium Chloride 1,000 mls @ 999 mls/hr 07/21/24 19:30 07/21/24 19:25 Ns IV 07/21/24 20:30 999 mls/hr .Q1H1M JENNIFER Administration Methylprednisolone Sodium Succinate 125 mg 07/21/24 17:41 07/21/24 19:24 Methylprednisolone Sod Succ 125 Mg Vial IVPUSH 07/21/24 17:42 125 mg ONCE ONE Administration Midazolam HCl 4 mg 07/21/24 18:34 07/21/24 18:57 Midazolam Hcl 2 Mg/2 Ml Vial IVPUSH 07/21/24 18:35 4 mg ONCE ONE Administration Propofol 50 mg 07/21/24 18:34 07/21/24 19:37 Propofol 200 Mg/20 Ml Vial IVPUSH 07/21/24 18:35 Not Given ONCE ONE Succinylcholine Chloride 100 mg 07/21/24 18:07 07/21/24 18:17 Succinylcholine Chloride 200 Mg/10 Ml Vial IVPUSH 07/21/24 18:08 100 mg ONCE ONE Administration Medical Decision Making Medical Decision Making MDM Narrative: Grossly mental status is altered. Only grimaces to painful stimuli we obtain a blood gas patient has a pH of 7.23 with a pCO2 of 99.7 consistent with acute on chronic CO2 retention. Considering patient's condition patient's mental status elected to intubate patient as patient has severe change in mental status. RSI technique was used please see procedure note. Patient was given additional neb treatment antibiotics. I reviewed patient's previous notes. Including ICU notes. 63-year-old gentleman with underlying TBI, seizure disorder, diabetes mellitus, COPD admitted on 07/08/2024 with acute hypoxic and hypercapnic respiratory failure requiring intubation and ventilatory support likely secondary to pulmonary aspiration. Hospital course also significant for polymicrobial bacteremia. Extubated uneventfully on 07/12/2024. Based on patient's blood gas his mental status. We elected to intubate patient. Please see procedure note. Place patient on the ventilator. My interpretation of patient's chest x-ray post intubation showed a ET tube in place. OG tube in place. The mortgage banker was notified. Patient will be going to the ICU. Antibiotic was started. Steroid given for COPD. Respiratory rate increased to breathe down the CO2. Currently awaiting admission. Eight hundred thirty p.m. Patient given Precedex and propofol for sedation. Will be going to the ICU. ICU team down to evaluate patient. Patient's repeat focal exam seems to be more calm. On the respirator. Differential Diagnosis Differential Diagnoses: The differential diagnosis associated with the presentation includes CO2 narcosis respiratory acidosis acute and chronic Admission/Observation Consideration of admission/observation: Escalation of care including admission/observation considered Consult Healthcare Provider Management of the patient was discussed with: Integration Project Manager (Pulmonary mortgage banker) Lab Data MDM Lab Attestation statement: I reviewed the patient's lab results. 07/21/24 18:11 07/21/24 18:11 Labs: Lab Results 07/21/24 07/21/24 Range/Units 17:55 18:11 WBC 16.6 H (4.8-10.8) X10*3/uL RBC 5.06 (4.60-5.80) X10*6/uL Hgb 14.7 (14.0-18.0) g/dl Hct 51.0 (42.0-52.0) % MCV 100.8 H (80.0-98.0) fL MCH 29.1 (27.0-33.0) pg MCHC 28.8 L (31.0-36.0) g/dl RDW 15.6 (11.0-16.0) % Plt Count 275 D (160-400) X10*3/uL MPV 11.1 (9.4-12.4) fL Immature Gran % (Auto) 0.5 H (0.0-0.4) % Neut % (Auto) 83.7 H (45-73) % Lymph % (Auto) 10.5 L (20-40) % Ripley % (Auto) 4.4 (2-11) % Eos % (Auto) 0.7 (0-4) % Baso % (Auto) 0.2 (0-2) % Lymph # (Auto) 1.8 (1.2-4.9) X10*3/uL [place]y # (Auto) 0.7 (0.1-1.2) X10*3/uL Eos # (Auto) 0.1 (0.0-0.4) X10*3/uL Baso # (Auto) 0.0 (0.0-0.2) X10*3/uL Abs Immat Gran (auto) 0.08 H (0.00-0.03) X10*3/uL Absolute Neuts (auto) 13.9 H (2.0-8.3) x10*3/uL Absolute Nucleated RBC 0.000 (0.0-0.012) X10*3/uL Nucleated RBC % (auto) 0.0 (0.0-0.2) /100WBC Hold Purple Top SEE NOTE O2 Saturation 93.0 % ABG pH at Pt Temp 7.23 L (7.35-7.45) ABG pCO2 at Pt Temp 100 H* (32-45) mmHg ABG pO2 at Pt Temp 84 (83-108) mmHg ABG HCO3 42 H (22-26) mmol/L ABG Base Excess (Actual) 10.0 mmol/L Sodium 137 (135-145) mmol/L Potassium 4.5 D (3.3-5.1) mmol/L Chloride 94 L (96-108) mmol/L Carbon Dioxide 37 H (22-29) mmol/L Anion Gap 11 L (12-20) BUN 16 (9-16) mg/dL Creatinine 0.81 (0.5-1.4) mg/dL Estim Creat Clear Calc 115.4 Estimated GFR > 60 Random Glucose 112 (60-115) mg/dL Lactic Acid 0.7 (0.5-2.0) mmol/L Calcium 9.3 (8.4-10.2) mg/dL Magnesium 2.3 (1.6-2.6) mg/dL Total Bilirubin 0.3 (0.0-1.0) mg/dL Direct Bilirubin 0.2 (0.0-0.5) mg/dL AST 30 (5-37) U/L ALT 30 (0-40) U/L Alkaline Phosphatase 95 (39-117) U/L Total Protein 7.7 (6.5-8.0) g/dL Albumin 4.1 (3.5-5.0) g/dL ABG Data Attestation ABG: I personally reviewed and interpreted this ABG as follows: Interpretation: Acute on chronic CO2 retention respiratory acidosis Independent Interpretation I performed an independent interpretation of an: EKG (My interpretation of patient's EKG showed a sinus rhythm heart rate is 100 with a significant right bundle branch block there is no acute ST segment elevation noted.) and Rhythm Strip (Sinus with a right bundle-branch block heart rate is about 100 PA is prolonged secondary to the right bundle branch block QTC is 490. ) Procedures Intubation Intubation Type:: Endotracheal Tube Insertion Intubation Date:: 07/21/24 Intubation Time:: 18:00 Time out performed: Yes sedative: Etomidate Mg Given: 20 paralytic: Succinylcholine Mg Given: 100 Laryngoscope: fiber optic video scope Assist Device Used: fiber optic device ET Tube Size: 7.5 ET Tube Uncuffed: No Tube Secured Depth (cm): 23 Tube Secured Location: lips Tube Placement Confirmation: visualized tube passing through cords Patient Tolerated Procedure: well Intubation Complications: none Critical Care Time Critical Care Time Critical Care Time: Yes Total Critical Care Time: 90 Attestation: I have personally provided 90 minutes of critical care time exclusive of time spent on separately billable procedures. ?Time includes review of lab data, radiology results, discussion with consultants, and monitoring for potential decompensation. ?Interventions were performed as documented above Discharge Plan Discharge Clinical Impression: Acute exacerbation of chronic obstructive pulmonary disease (COPD), Respiratory failure Patient Disposition: Admitted As Inpatient Prescriptions: No Action acetaminophen 325 mg Tablet 650 mg PO Q6H PRN (Reason: Fever Or Pain) atorvastatin 10 mg Tablet 10 mg PO BEDTIME fexofenadine 180 mg Tablet 180 mg PO DAILY aspirin 81 mg Tablet,Delayed Release (Dr/Ec) 81 mg PO DAILY Rx Instructions: TAKE WITH A FULL GLASS OF WATER bisacodyl 10 mg Suppository 10 mg PA DAILY PRN (Reason: constipation ) Rx Instructions: If Senna is ineffective Fleet Enema 19-7 gram/118 mL Enema 118 ml PA DAILY PRN (Reason: constipation ) Rx Instructions: If Bisacodyl supp ineffective albuterol sulfate 90 mcg/actuation Hfa Aerosol Inhaler 2 puff INHALATION Q6H PRN (Reason: Bronchospasm/SOB) guaifenesin 200 mg/5 mL Liquid 400 mg PO Q4H PRN (Reason: Congestion) fluticasone furoate-vilanterol [Breo Ellipta] 100-25 mcg/dose Blister With Device 1 inh INHALATION DAILY Rx Instructions: 5 min apart from Spiriva , rinse mouth after use trazodone 50 mg Tablet 50 mg PO BEDTIME sennosides-docusate sodium [Senna with Docusate Sodium] 8.6-50 mg Tablet 2 tab-cap PO BID lithium carbonate 150 mg Capsule 150 mg PO BID melatonin 3 mg Tablet 9 mg PO BEDTIME propranolol 10 mg Tablet 5 mg PO BID tamsulosin 0.4 mg Capsule 0.4 mg PO BEDTIME lithium carbonate 300 mg Capsule 300 mg PO BID topiramate 50 mg Tablet 50 mg PO BID Spiriva Respimat 2.5 mcg/actuation Mist 2 puff INHALATION DAILY Rx Instructions: 5 min apart from brio insulin glargine [Lantus U-100 Insulin] 100 unit/mL Solution 15 unit subcut DAILY Qty: 1 0RF simethicone [Simethicone-80] 80 mg Tablet,Chewable 80 mg PO Q6H PRN (Reason: flatulence/bloating) sennosides [senna] 8.6 mg Tablet 8.6 mg PO DAILY PRN (Reason: Constipation) metformin 1,000 mg Tablet 1,000 mg PO BIDWM insulin lispro [Humalog U-100 Insulin] 100 unit/mL Solution 2 - 8 sliding scale dose SUBCUT QIDACHS Protocol: Insulin Correction Scale Less than or equal to 110 ---- Give (units): 0 111 to 150 Give (units): 0 151 to 200 Give (units): 2 201 to 250 Give (units): 4 251 to 300 Give (units): 6 301 to 350 Give (units): 8 Greater than 350 Give (units): 10 Call MD if Blood Glucose > : 350 glucagon 1 mg Recon Soln 1 mg SUBCUT Q15M PRN (Reason: Diabeted) Rx Instructions: until target blood sugar attained fluoride (sodium) [PreviDent] 1.1 % Gel 1 appl DENTAL DAILY amoxicillin-pot clavulanate 875-125 mg tablet 1 tab PO BID Qty: 28 0RF Rx Instructions: End date 07/29/24 Print Language: Chinese
--- NOTE | 2024-07-21 18:14 | PC.NURSE ---
1816 20 of etomidate ivp and 100 odf succs intubated 7.5 tube and 23 at the lip with + color change b/l ls
[2024-07-21] MEDS: Succinylcholine Chloride 200 MG/10 ML VIAL 100 MG IVPUSH (18:17)
[2024-07-21] MEDS: Etomidate 20 MG/10 ML VIAL IVPUSH (18:17)
[2024-07-21 18:18] LABS: MANUAL DIFF FLAG NO
--- OUTSIDE RECORDS SUMMARY | 2024-07-21 18:27 | XMS_ITS | Clinical Summary ---
Author Organization [address] Address [address] [place] [address] Phone Care Team Providers Care Product Safety Specialist Name Role Phone Hilario Blank MD Primary Care Provider [phone] Encounters Date Type Department Care Team Description 06/21/2024 Lab Requisition [facility] Lab [address] [place] [address] Hilario Blank MD Type 2 diabetes mellitus without complications (CMS/HCC V24, CMS/HCC V28); [facility] [place] [facility] (current[place] drug therapy; Encounter for therapeutic drug level monitoring 05/13/2024 Lab Requisition [facility] Lab [address] [place] [address] Hilario Blank MD Polydipsia; Type [...] without complications (CMS/HCC V24, CMS/HCC V28) Other safety representative (current) drug therapy Encounter for therapeutic drug level monitoring THYROID STIMULATING HORMONE Routine 06/21/2024 6:15 AM EDT Type 2 diabetes mellitus without complications (CMS/HCC V24, CMS/HCC V28) Other safety representative (current) drug therapy Encounter for therapeutic drug level monitoring LITHIUM LEVEL Routine 06/21/2024 6:15 AM EDT Type 2 diabetes mellitus without complications ([facility] V24, [facility] V28) Other [place] [facility] (current) drug therapy Encounter for therapeutic drug level monitoring HEMOGLOBIN A1C Routine 06/21/2024 6:15 AM EDT Type 2 diabetes mellitus without complications ([facility] V24, [facility] V28) Other [place] [facility] (current[place] drug therapy Encounter for therapeutic drug level monitoring CBC AND DIFFERENTIAL Routine 06/21/2024 6:15 AM EDT Type 2 diabetes mellitus without complications ([facility] V24, [facility] V28) Other [place] [facility] (current) drug therapy Encounter for therapeutic drug level monitoring COMPREHENSIVE METABOLIC PANEL Routine 06/21/2024 6:15 AM EDT Type 2 diabetes mellitus without complications ([facility] V24, [facility] V28) Other [place] [facility] (current) drug therapy Encounter for therapeutic drug level monitoring HEMOGLOBIN A1C Routine 05/13/2024 6:43 AM EDT Polydipsia Type 2 diabetes mellitus without complications COMPREHENSIVE METABOLIC PANEL Routine 05/13/2024 6:43 AM EDT [place]ipsia Type 2 diabetes mellitus without complications LIPID PANEL WITH REFLEX TO DIRECT LDL Routine 02/10/2024 6:10 AM EST Other safety representative (current) drug therapy from Last 3 Months or Most Recently Relevant to Health Maintenance Results * (ABNORMAL) CBC auto differential (06/21/2024 6:15 AM EDT) [facility] WBC 11.7(H) 4.8 - 10.8 K/[facility] LAB HEMETOLOGY METHOD 06/21/2024 7:18 AM EDT [facility] RBC 4.40(L) 4.50 - 5.50 M/[facility] LAB HEMETOLOGY METHOD 06/21/2024 7:18 AM [facility] Hemoglobin 12.9(L) 13.5 - 17.5 g/dL LAB HEMETOLOGY METHOD 06/21/2024 7:18 AM [facility] LAB Hematocrit 42.4 42.0 - 54.0 % LAB HEMETOLOGY METHOD 06/21/2024 7:18 AM [facility] MCV 97.0 79.0 - 98.0 FL LAB HEMETOLOGY METHOD 06/21/2024 7:18 AM [facility] LAB MCH 29.5 27.0 - 32.0 pcg LAB HEMETOLOGY METHOD 06/21/2024 7:18 AM [facility] LAB MCHC 30.4(L) 32.0 - 37.0 g/dL LAB HEMETOLOGY METHOD 06/21/2024 7:18 AM [facility] RDW 14.6 11.0 - 15.0 % LAB HEMETOLOGY METHOD 06/21/2024 7:18 AM [facility] Platelets 185 130 - 400 K/mcL LAB HEMETOLOGY METHOD 06/21/2024 7:18 AM [facility] LAB MPV 10.4 7.0 - 11.0 FL LAB HEMETOLOGY METHOD 06/21/2024 7:18 AM [facility] NRBC 0.0 <1.0 % LAB HEMETOLOGY METHOD 06/21/2024 7:18 AM [facility] LAB NRBC Absolute 0.00 <0.10 K/mcL LAB HEMETOLOGY METHOD 06/21/2024 7:18 AM [facility] Neutrophils Relative 73.1 % LAB HEMETOLOGY METHOD 06/21/2024 7:18 AM [facility] Lymphocytes Relative 15.9 % LAB HEMETOLOGY METHOD 06/21/2024 7:18 AM EDT [facility] Monocytes Relative 7.2 % LAB HEMETOLOGY METHOD 06/21/2024 7:18 AM EDT [facility] Eosinophils Relative 3.0 % LAB HEMETOLOGY METHOD 06/21/2024 7:18 AM [facility] Basophils Relative 0.3 % LAB HEMETOLOGY METHOD 06/21/2024 7:18 AM EDT [facility] Immature Granulocytes Relative 0.5 % LAB HEMETOLOGY METHOD 06/21/2024 7:18 AM EDT [facility] Neutrophils Absolute 8.59(H) 1.50 - 7.00 K/mcL LAB HEMETOLOGY METHOD 06/21/2024 7:18 AM [facility] Lymphocytes Absolute 1.86 1.00 - 5.00 K/mcL LAB HEMETOLOGY METHOD 06/21/2024 7:18 AM [facility] Monocytes Absolute 0.84 0.20 - 1.00 K/mcL LAB HEMETOLOGY METHOD 06/21/2024 7:18 AM [facility] Eosinophils Absolute 0.35 0.00 - 0.50 K/mcL LAB HEMETOLOGY METHOD 06/21/2024 7:18 AM [facility] Basophils Absolute 0.03 0.00 - 0.20 K/mcL LAB HEMETOLOGY METHOD 06/21/2024 7:18 AM [facility] Immature Granulocytes Absolute 0.06(H) 0.00 - 0.03 K/mcL LAB HEMETOLOGY METHOD 06/21/2024 7:18 AM [facility] Blood Venous blood specimen / Unknown 06/21/2024 6:15 AM EDT 06/21/2024 7:13 AM EDT us Hilario Blank MD LAB BLOOD ORDERABLES Final Resul t [facility] [address] [place] [address], [place] [phone] * Thyroid stimulating hormone (06/21/2024 6:15 AM EDT) TSH 1.74 0.40 - 4.00 mcIU/mL LAB CHEMISTRY METHOD 06/21/2024 10:17 AM EDT [facility] Blood Venous blood specimen / Unknown 06/21/2024 6:15 AM EDT 06/21/2024 7:13 AM EDT us Hilario Blank MD LAB BLOOD ORDERABLES Final Resul t Performing Organization Address City/[facility]/ZIP Co de Phone Number [facility] [address] [place] [address], [place] [phone] * (ABNORMAL) Hemoglobin A1c (06/21/2024 6:15 AM EDT) Only the most recent of2 resultswithin the time period is included. Hemoglobin A1C 7.6(H) <6.5 % LAB CHEMISTRY METHOD 06/21/2024 12:40 PM EDT [facility] Mean Bld Glu Estim. 171 mg/dL LAB CHEMISTRY METHOD 06/21/2024 12:40 PM EDT [facility] Blood Venous blood specimen / Unknown 06/21/2024 6:15 AM EDT 06/21/2024 7:13 AM EDT us Hilario Blank MD LAB BLOOD ORDERABLES Final Resul t [facility] [address] [place] [address], [place] [phone] * [place] level (06/21/2024 6:15 AM EDT) [place] Level 0.8 0.6 - 1.2 mEq/L LAB CHEMISTRY METHOD 06/21/2024 8:01 AM [facility] Blood Venous blood specimen / Unknown 06/21/2024 6:15 AM EDT 06/21/2024 7:13 AM EDT us Hilario Blank MD LAB BLOOD ORDERABLES Final Resul t [facility] [address] [place] [address], * (ABNORMAL) Comprehensive metabolic panel (06/21/2024 6:15 AM EDT) Only the most recent of2 resultswithin the time period is included. Sodium 134 133 - 145 mmol/L LAB CHEMISTRY METHOD 06/21/2024 8:06 AM [facility] Potassium 4.2 3.5 - 5.5 mmol/L LAB CHEMISTRY METHOD 06/21/2024 8:06 AM [facility] Chloride 97 96 - 110 mmol/L LAB CHEMISTRY METHOD 06/21/2024 8:06 AM [facility] CO2 32 21 - 32 mmol/L LAB CHEMISTRY METHOD 06/21/2024 8:06 AM [facility] Anion Gap 5 3 - 11 LAB CHEMISTRY METHOD 06/21/2024 8:06 AM [facility] Glucose 179(H) 70 - 100 mg/dL LAB CHEMISTRY METHOD 06/21/2024 8:06 AM [facility] BUN 14 5 - 25 mg/dL LAB CHEMISTRY METHOD 06/21/2024 8:06 AM [facility] Creatinine 0.94 0.70 - 1.30 mg/dL LAB CHEMISTRY METHOD 06/21/2024 8:06 AM [facility] eGFR 90 >=60 mL/min/1. 73m2 LAB CHEMISTRY METHOD 06/21/2024 8:06 AM [facility] Comment:Calculation based on the Chronic Kidney Disease Epidemiology Collaboration (CKD-EPI) equation refit without adjustment for race. BUN/Creatinine Ratio 14.9 LAB CHEMISTRY METHOD 06/21/2024 8:06 AM [facility] Calcium 8.6 8.5 - 10.5 mg/dL LAB CHEMISTRY METHOD 06/21/2024 8:06 AM [facility] AST (SGOT) 13 10 - 42 unit/L LAB CHEMISTRY METHOD 06/21/2024 8:06 AM [facility] ALT (SGPT) 22 10 - 60 unit/L LAB CHEMISTRY METHOD 06/21/2024 8:06 AM [facility] Alkaline Phosphatase 101 42 - 121 unit/L LAB CHEMISTRY METHOD 06/21/2024 8:06 AM [facility] Total Protein 6.8 6.0 - 8.0 g/dL LAB CHEMISTRY METHOD 06/21/2024 8:06 AM [facility] Albumin 3.0(L) 3.2 - 5.0 g/dL LAB CHEMISTRY METHOD 06/21/2024 8:06 AM [facility] Total Bilirubin 0.3 0.0 - 1.4 mg/dL LAB CHEMISTRY METHOD 06/21/2024 8:06 AM [facility] Blood Venous blood specimen / Unknown 06/21/2024 6:15 AM EDT 06/21/2024 7:13 AM EDT us Hilario Blank MD LAB BLOOD ORDERABLES Final Resul t [facility] [address] [place] [address], * Lipid panel with reflex to direct LDL (02/10/2024 6:10 AM EST) Cholesterol 138 0 - 200 mg/dL LAB CHEMISTRY METHOD 02/10/2024 8:23 AM EST [facility] Triglycerides 119 0 - 150 mg/dL LAB CHEMISTRY METHOD 02/10/2024 8:23 AM EST [facility] HDL 42 >=40 mg/dL LAB CHEMISTRY METHOD 02/10/2024 8:23 AM EST [facility] LDL Calculated 72 0 - 100 mg/dL LAB CHEMISTRY METHOD 02/10/2024 8:23 AM [facility] VLDL Cholesterol Rafael 23.8 mg/dL LAB CHEMISTRY METHOD 02/10/2024 8:23 AM [facility] Non HDL Chol. (LDL+VLDL) 96 <145 mg/dL LAB CHEMISTRY METHOD 02/10/2024 8:23 AM [facility] Chol/HDL Ratio 3.3 0.0 - 4.4 LAB CHEMISTRY METHOD 02/10/2024 8:23 AM [facility] Blood Venous blood specimen / Unknown 02/10/2024 6:10 AM EST 02/10/2024 7:38 AM EST us Hilario Blank MD LAB BLOOD ORDERABLES Final Resul t [facility] [address] [place] [address], from Last 3 Months or Most Recently Relevant to Health Maintenance Insurance [facility] MEDICARE Care Teams Product Safety Specialist Relationship Specialty Start Date End Date Hilario Blank MD [address] [place] [address] [address] DARYL Mcdaniel PCP - General Internal Medicine 05/13/24
[2024-07-21] MEDS: propofoL 1,000 MG/100 ML VIAL 34.5 MG IVCONT ×2 (18:30→21:46)
[2024-07-21 18:31] LABS: Basophils Percent Auto 0.2 % (0-2); Eosinophils Absolute Auto 0.1 X10*3/uL (0.0-0.4); Eosinophils Percent Auto 0.7 % (0-4); Hemoglobin 14.7 g/dl (14.0-18.0); Imm Gran Abs Auto 0.08 X10*3/uL (0.00-0.03); Imm Gran Pct Auto 0.5 % (0.0-0.4); Lymphocytes Absolute Auto 1.8 X10*3/uL (1.2-4.9); Lymphocytes Percent Auto 10.5 % (20-40); Mean Corpuscular HGB Conc 28.8 g/dl (31.0-36.0); Mean Corpuscular Hemoglobin 29.1 pg (27.0-33.0); Mean Corpuscular Volume 100.8 fL (80.0-98.0); Mean Platelet Volume 11.1 fL (9.4-12.4); Monocytes Absolute Auto 0.7 X10*3/uL (0.1-1.2); Monocytes Percent Auto 4.4 % (2-11); Neutrophils Absolute Auto 13.9 x10*3/uL (2.0-8.3); Neutrophils Percent Auto 83.7 % (45-73); Platelet Count 275 X10*3/uL (160-400); Red Blood Count 5.06 X10*6/uL (4.60-5.80); Red Cell Distribution Width 15.6 % (11.0-16.0); White Blood Count 16.6 X10*3/uL (4.8-10.8)
[2024-07-21 18:33] LABS: Lactic Acid 0.7 mmol/L (0.5-2.0)
[2024-07-21 18:34] LABS: Alanine Aminotransferase 30 U/L (0-40); Albumin Level 4.1 g/dL (3.5-5.0); Alkaline Phosphatase 95 U/L (39-117); Anion Gap 11 (12-20); Aspartate Amino Transferase 30 U/L (5-37); Bilirubin Direct 0.2 mg/dL (0.0-0.5); Bilirubin Total 0.3 mg/dL (0.0-1.0); Blood Urea Nitrogen 16 mg/dL (9-16); Calcium 9.3 mg/dL (8.4-10.2); Carbon Dioxide 37 mmol/L (22-29); Chloride 94 mmol/L (96-108); Creatinine Clr Calc Pharmacy 115.4; Estimated Glomerular Filt Rate > 60; Glucose Random 112 mg/dL (60-115); Magnesium 2.3 mg/dL (1.6-2.6); Potassium 4.5 mmol/L (3.3-5.1); Sodium 137 mmol/L (135-145); Total Protein 7.7 g/dL (6.5-8.0)
--- NOTE | 2024-07-21 18:35 | PC.NURSE ---
bedside report to JAIRON Hart; pt to be intubated; care by this RN relinquished
[2024-07-21] MEDS: dexmedeTOMIDine HCL/NS 400 MCG/100 ML PLAST..BAG 28.75 MCG IVCONT (18:40)
[2024-07-21] MEDS: cefEPime HCl/D5W 2 GM/50 ML PIGGYBACK IV (18:57)
[2024-07-21] MEDS: Midazolam HCl 2 MG/2 ML VIAL 4 MG IVPUSH (18:57)
[2024-07-21] MEDS: Magnesium Sulfate/H2O 2 GM/50 ML PIGGYBACK IV (19:24)
[2024-07-21] MEDS: 0.9 % Sodium Chloride 1,000 ML 999 ML IV (19:25)
[2024-07-21] MEDS: Phenylephrine HCL 20 MG in 0.9 % Sodium Chloride 250 ML 43.47 MG IVCONT (19:32)
--- NOTE | 2024-07-21 20:16 | PHA.MEDREC ---
Addendum entered by Chloe Baxter RPh 07/21/24 20:29: reviewed Original Note: Pharmacy Consult ? Medication Reconciliation Pharmacy has completed the medication reconciliation. Utilized list from [facility] to confirm med list.
--- NOTE | 2024-07-21 20:23 | ECG_ITS ---
Test Reason : BRADYCARDIA Blood Pressure : */* mmHG Vent. Rate : 50 BPM Atrial Rate : 50 BPM P-R Int : 202 ms QRS Dur : 140 ms QT Int : 470 ms P-R-T Axes : 79 -80 1 degrees QTcB Int : 428 ms Sinus bradycardia Right bundle branch block Left anterior fascicular block Bifascicular block Possible Lateral infarct (cited on or before 21-Jul-2024) Cannot rule out Inferior infarct (masked by fascicular block?) , age undetermined Abnormal ECG When compared with ECG of 21-Jul-2024 17:29, Vent. rate has decreased by 46 bpm T wave inversion now evident in Inferior leads QT has shortened Referred By: Daniel Blanton Electronically Signed By: JUSTINE ORTEGA MD
[2024-07-21] MEDS: dexmedeTOMIDine HCL/NS 400 MCG/100 ML PLAST..BAG 43.13 MCG IVCONT (21:17)
--- NOTE | 2024-07-21 21:24 | PM.CCHP ---
History of Present Illness Date of Service: 07/21/24 Attending physician on admission: Daniel Blanton Chief Complaint: SOB The patient is a 63-year-old male with a past medical history of COPD, TBI, seizure disorders, diabetes mellitus with recent admission 07/08/24 to 07/15/24? with acute hypoxic hypercapnic respiratory failure which required ventilatory support for 4 days due to pulmonary aspiration, bacteremia and? enterovirus/rhinovirus infection. Discharged on 14 days of amoxicillin-clavulanate.? ?Today patient represents to the emergency department with worsening shortness of breath and generalized malaise.? ?Laboratory data significant for blood gas showing significant hypercapnia, 7.23/100/84/42.? WBC elevated to 16.6.? ?Patient required? emergent intubation in the? emergency department? for airway protection due to severe hypercapnia.? IMAGING:? Chest Xray: ? my interpretation, chest x-ray consistent? aspiration with worsening airspace disease in the right upper lobe,? also mild degree of pulmonary edema ED COURSE:? ?Patient received? 1 L bolus, cefepime 2 g and Solu-Medrol 125 mg Review of Systems Review of Systems: Yes unobtainable due to endotracheal tube PMFSH Past Medical History Medical History Pulmonary edema Encephalopathy Non-ST elevation ME (NSTEMI) Diabetes mellitus Epilepsy Acute respiratory failure with hypoxia and hypercarbia Aspiration pneumonia Leukocytosis COPD (chronic obstructive pulmonary disease) TBI (traumatic brain injury) Social History Social History Household Members: None Housing: Long-Term Do you presently have visiting nurse or other home services: No Comment: agricultural extension officer with 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 to ICU Patient Tobacco Use Status: Tobacco use Unknown Tobacco use type: Cigarette Cigarettes Per Day: 8 e-Cigarette/Vaping Use: Never Used Second Hand Smoke Exposure: No Currently Displaying Signs/Symptoms of Drug Intoxication Withdrawal: No Advance Directives: Yes Advance Directives on File: Yes Advance Directives Date on File: 03/15/24 service: No Meds Allergies Allergy/AdvReac Type Severity Reaction Status Date / Time vancomycin Allergy Severe Redness of Verified 07/21/24 17:30 Skin Active Medications: Current Medications Chlorhexidine Gluconate (Chlorhexidine Gluc Oral Rinse 15 Ml Mouthwash) 15 ml BUCCAL TID [facility] Enoxaparin Sodium (Enoxaparin Sodium 40 Mg/0.4 Ml Syringe) 40 mg SUBCUT Q24H [facility] Famotidine (Famotidine/Pf 20 Mg/2 Ml Vial) 20 mg IVPUSH DAILY [facility] Propofol (Diprivan) 1,000 mg in 100 mls @ 0 mls/hr IVCONT .Q0M [facility]; Protocol Last Titration: 07/21/24 20:35 Dose: 50 mcg/kg/min, 34.5 mls/hr Dexmedetomidine HCl (Precedex) 400 mcg in 100 mls @ 0 mls/hr IVCONT .Q0M JENNIFER; Protocol Last Titration: 07/21/24 21:23 Dose: 1.3 mcg/kg/hr, 37.38 mls/hr Phenylephrine HCl 20 mg/ (Sodium Chloride) 252 mls @ 0 mls/hr IVCONT .Q0M [facility]; Protocol Last Titration: 07/21/24 21:22 Dose: 0 mcg/kg/min, 0 mls/hr Ampicillin Sodium/Sulbactam (Sodium 3 gm/ Sodium Chloride) 100 mls @ 200 mls/hr IV Q8H [facility] Insulin Human Lispro (Insulin Lispro 100 Unit/Ml 3 Ml Vial) 0 unit SUBCUT QIDACHS [facility]; Protocol [place] Carbonate ([place] Carbonate 300 Mg Tablet) 150 mg PO BID [facility] [place] Carbonate ([place] Carbonate 300 Mg Capsule) 300 mg PO BID [facility] Topiramate (Topiramate 25 Mg Tablet) 50 mg PO BID [facility] Home Medications ?Medication ?Instructions ?Recorded ?Confirmed ?Last Taken ?Type acetaminophen 325 mg tablet 650 mg PO Q6H PRN Fever Or Pain 03/15/24 07/21/24 Unknown History albuterol sulfate 90 mcg/actuation 2 puff inhalation Q6H PRN 03/15/24 07/21/24 Unknown History aerosol inhaler Bronchospasm/SOB aspirin 81 mg tablet,delayed 81 mg PO DAILY 03/15/24 07/21/24 Unknown History release atorvastatin 10 mg tablet 10 mg PO BEDTIME 03/15/24 07/21/24 Unknown History bisacodyl 10 mg rectal suppository 10 mg [place] DAILY PRN constipation 03/15/24 07/21/24 Unknown History fexofenadine 180 mg tablet 180 mg PO DAILY 03/15/24 07/21/24 Unknown History fluticasone furoate 100 1 inh inhalation DAILY 03/15/24 07/21/24 Unknown History mcg-vilanterol 25 mcg/dose inhalation powder (Breo Ellipta) guaifenesin 200 mg/5 mL oral liquid 400 mg PO Q4H PRN Congestion 03/15/24 07/21/24 Unknown History lithium carbonate 150 mg capsule 150 mg PO BID 03/15/24 07/21/24 Unknown History lithium carbonate 300 mg capsule 300 mg PO BID 03/15/24 07/21/24 Unknown History melatonin 3 mg tablet 9 mg PO BEDTIME 03/15/24 07/21/24 Unknown History propranolol 10 mg tablet 5 mg PO BID 03/15/24 07/21/24 Unknown History sennosides 8.6 mg-docusate sodium 2 tab-cap PO BID 03/15/24 07/21/24 Unknown History 50 mg tablet (Senna with Docusate Sodium) sodium phosphates 19 gram-7 118 ml [place] DAILY PRN constipation 03/15/24 07/21/24 Unknown History gram/118 mL enema (Fleet Enema) tamsulosin 0.4 mg capsule 0.4 mg PO BEDTIME 03/15/24 07/21/24 Unknown History tiotropium bromide 2.5 2 puff inhalation DAILY 03/15/24 07/21/24 Unknown History mcg/actuation mist for inhalation (Spiriva Respimat) topiramate 50 mg tablet 50 mg PO BID 03/15/24 07/21/24 Unknown History trazodone 50 mg tablet 50 mg PO BEDTIME 03/15/24 07/21/24 Unknown History fluoride (sodium) 1.1 % dental gel 1 appl dental DAILY 07/08/24 07/21/24 Unknown History (PreviDent) glucagon 1 mg solution for 1 mg subcut Q15M PRN Diabeted 07/08/24 07/21/24 Unknown History injection insulin lispro 100 unit/mL 2 - 8 sliding scale dose subcut 07/08/24 07/21/24 Unknown History subcutaneous solution (Humalog QIDACHS U-100 Insulin) metformin 1,000 mg tablet 1,000 mg PO BIDWM 07/08/24 07/21/24 Unknown History sennosides 8.6 mg tablet (senna) 8.6 mg PO DAILY PRN Constipation 07/08/24 07/21/24 Unknown History simethicone 80 mg chewable tablet 80 mg PO Q6H PRN 07/21/24 07/21/24 Unknown History flatulence/bloating Physical Exam Vital Signs: Vital Signs: Last Vital Signs Temp 100.2 F 07/21/24 19:48 Pulse 55 07/21/24 21:23 Resp 20 07/21/24 19:48 BP 123/67 07/21/24 21:22 Pulse Ox 97 07/21/24 19:48 O2 Del Method Room Air 07/21/24 19:48 O2 Flow Rate 6 07/21/24 18:17 FiO2 50 07/21/24 18:28 BMI result Body Mass Index 36.4 ?General:?Intubated ?HEENT:? Head is normocephalic, atraumatic, pupils equal round reactive to light accommodation bilaterally.? Buccal mucosa is dry, Neck is supple ?Cardiac:? Sinus dmitry to Normal sinus rhythm. Clear S1-S2, no murmurs rubs or gallops. BLE trace edema ?Pulmonary:Diminished at bases.?No wheezes, rales or rhonchi. ?Abdomen:? ?Abdomen soft, non-tender, non-distended. Normal bowel sounds. No pulsatile mass. No hepatosplenomegaly. ?Musculoskeletal:? Moving all 4 extremities randmly.? The strength is 5/5 bilaterally and throughout all 4 extremities.? Gait not assessed at this point. ?Neurologic:? cranial nerves 2-12 are grossly intact.? No focal deficits noted.Motor strength as above.?? ?Skin:? Intact, no lesionn Vascular:? 2+ pulses upper and lower extremities distally.? Results Labs 07/22/24 08:42 07/22/24 08:42 Labs: Laboratory Results - last 24 hr 07/21/24 07/21/24 17:55 18:11 MCV 100.8 H MCH 29.1 MCHC 28.8 L RDW 15.6 Plt Count 275 D MPV 11.1 Immature Gran % (Auto) 0.5 H Neut % (Auto) 83.7 H Lymph % (Auto) 10.5 L [place] % (Auto) 4.4 Eos % (Auto) 0.7 Baso % (Auto) 0.2 Lymph # (Auto) 1.8 [place] # (Auto) 0.7 Eos # (Auto) 0.1 Baso # (Auto) 0.0 Abs Immat Gran (auto) 0.08 H Absolute Neuts (auto) 13.9 H Absolute Nucleated RBC 0.000 Nucleated RBC % (auto) 0.0 Hold Purple Top SEE NOTE O2 Saturation 93.0 ABG pH at Pt Temp 7.23 L ABG pCO2 at Pt Temp 100 H* ABG pO2 at Pt Temp 84 ABG HCO3 42 H ABG Base Excess (Actual) 10.0 Anion Gap 11 L Estim Creat Clear Calc 115.4 Estimated GFR > 60 Random Glucose 112 Lactic Acid 0.7 Calcium 9.3 Magnesium 2.3 Total Bilirubin 0.3 Direct Bilirubin 0.2 AST 30 ALT 30 Alkaline Phosphatase 95 Total Protein 7.7 Albumin 4.1 Assessment and Plan (1) Acute respiratory failure with hypercapnia: Status: Acute (2) Aspiration into airway: Status: Acute (3) Leukocytosis: Status: Acute (4) COPD (chronic obstructive pulmonary disease): Status: Acute (5) Hypotension: Status: Acute Plan 63-year-old male with a past medical history of COPD, TBI, seizure disorders, diabetes mellitus? admitted to ICU for management of? acute hypercapnic respiratory failure requiring ventilatory support? Neuro:? Underlying TBI and seizure disorder.? Continue lithium and topiramate. Cardiac:? ??Pulmonary edema:? chest x-ray consistent with some degree of pulmonary edema.? Echo from 07/09/24 showed normal LV systolic and diastolic function, cor pulmonale, [id number] pericardial effusion with no tamponade,? was to follow up with Cardiology outpatient. ? No evidence of cardiac tamponade at this time. Will diurese with Lasix.? ?Hypotension:? related to sedation,? no evidence of severe septic shock.? Lactic is negative.? Pulmonary:?? Acute hypercapnic respiratory failure requiring ventilatory support, likely secondary to pulmonary aspiration.? We will cover with Unasyn.? Underlying hx of COPD, do not believe his COPD exacerbation at this time,? will not cont steroids. maintain o2 sats 88-93%. Continue to titrate off ventilatory support as tolerated.?? Renal:? No acute issues.? Endo:?? ?Underlying diabetes mellitus.? Continue with lispro GI:? No acute issues. ID:?? ?Aspiration:? patient was supposed to? finish a 14 day course of amoxicillin-clavulanate.? Received ceftriaxone in the ED.? Will switch to Unasyn.? Blood cultures obtained in the ED and pending.? Heme/Onc:? No acute issues. Psych:? No acute issues. Miscellaneous:? No acute issues. Prophylaxis:? Lovenox, GI:? famotidine CODE STATUS:? FULL CODE, previously patient has been DNI DNR but he recently revert to full code by family? Critical care time spent:? 60 minutes
[2024-07-21 21:25] LABS: VBG Base Excess 11.5 mmol/L; VBG HCO3 32 mmol/L (22-26); VBG pCO2 30 mmHg; VBG pH 7.63 (7.32-7.43); VBG pO2 72 mmHg
[2024-07-21 21:34] LABS: Glucose, Whole Blood 157 mg/dL (60-115)
[2024-07-21] MEDS: Ampicillin Sodium/Sulbactam Na 3 GM in 0.9 % Sodium Chloride 100 ML IV (21:37)
[2024-07-21 21:38] LABS: Ammonia 150 umol/L (13-55)
[2024-07-21 21:49] LABS: Venous Blood Gas Refer to POC result
[2024-07-21] MEDS: Furosemide 20 MG/2 ML VIAL IVPUSH (21:52)
[2024-07-21] MEDS: Topiramate 25 MG TABLET 50 MG PO (21:53)
[2024-07-21] MEDS: Lithium Carbonate 300 MG CAPSULE PO (21:53)
[2024-07-21] MEDS: Enoxaparin Sodium 40 MG/0.4 ML SYRINGE SUBCUT (21:53)
[2024-07-21] MEDS: Chlorhexidine Gluc Oral Rinse 15 ML MOUTHWASH BUCCAL (21:54)
[2024-07-21] MEDS: Lithium Carbonate 300 MG TABLET 150 MG PO (22:50)
[2024-07-21] MEDS: Lactulose 20 GM/30 ML SOLUTION 30 GM PO (22:51)
[2024-07-21] MEDS: dexmedeTOMIDine HCL/NS 400 MCG/100 ML PLAST..BAG 31.63 MCG IVCONT (22:56)
[2024-07-21 22:58] LABS: Influenza A PCR NEGATIVE (Negative); Influenza B PCR NEGATIVE (Negative); Resp Syncy Virus RNA Qual PCR NEGATIVE (Negative); SARS COV2 PCR INHOUSE NEGATIVE (Negative)
[2024-07-21 23:15] LABS: Appearance Urine Clear; Color Urine Yellow; Glucose Urine UA Negative (Negative); Leukocyte Esterase Urine Negative (Negative); Nitrite Urine Negative (Negative); PH 7.5 (5.0-9.0); Specific Gravity - Urine <= 1.005 (1.005-1.025); UMIC TRIGGER UACC YES; Urine Blood Trace (Negative); Urine Ketones Negative (Negative); Urine Protein Negative (Neg-Trace)
[2024-07-21 23:18] LABS: Bacteria Urine None Seen (None Seen); Hyaline Casts Urine 0-2 /LPF (0-2); Squamous Epithelial Cell Urine 0-2 /HPF (0-2); WBC Urine 0-5 /HPF (0-5)
[2024-07-22] VITALS (61 sets, daily range): BP systolic 78–164; BP diastolic 37–69; PULSE 36–67; RESP 16–22; TEMP 31–39.1; O2SAT 89–100; BMI 37.8
--- NOTE | 2024-07-22 | ECG_ITS ---
Test Reason : bradycardia Blood Pressure : */* mmHG Vent. Rate : 51 BPM Atrial Rate : 51 BPM P-R Int : 198 ms QRS Dur : 140 ms QT Int : 518 ms P-R-T Axes : 84 265 188 degrees QTcB Int : 477 ms Sinus bradycardia Right bundle branch block T wave abnormality, consider inferolateral ischemia Abnormal ECG When compared with ECG of 21-Jul-2024 20:23, T wave inversion now evident in Anterolateral leads Referred By: Daniel Blanton Electronically Signed By: JUSTINE ORTEGA MD
[2024-07-22] MEDS: propofoL 1,000 MG/100 ML VIAL 34.5 MG IVCONT ×5 (00:20→22:08)
[2024-07-22] MEDS: dexmedeTOMIDine HCL/NS 400 MCG/100 ML PLAST..BAG 25.88 MCG IVCONT ×2 (01:42→04:43)
[2024-07-22] MEDS: Ampicillin Sodium/Sulbactam Na 3 GM in 0.9 % Sodium Chloride 100 ML IV ×2 (04:12→10:26)
[2024-07-22] MEDS: Acetaminophen Oral Liquid 650 MG/20.3 ML SOLUTION PO ×2 (05:10→13:23)
[2024-07-22] MEDS: diphenhydrAMINE HCL 50 MG/ML VIAL 25 MG IVPUSH (05:11)
[2024-07-22 05:43] LABS: ABG Base Excess 8.9 mmol/L; ABG HCO3 32 mmol/L (22-26); ABG pCO2 40 mmHg (32-45); ABG pH 7.51 (7.35-7.45); ABG pO2 67 mmHg (83-108)
[2024-07-22 06:47] LABS: ABG Refer to POC result
[2024-07-22] MEDS: propofoL 1,000 MG/100 ML VIAL 20.7 MG IVCONT (08:25)
[2024-07-22 08:41] LABS: Glucose, Whole Blood 149 mg/dL (60-115)
[2024-07-22] MEDS: Lithium Carbonate 300 MG TABLET 150 MG PO ×2 (08:50→20:34)
[2024-07-22] MEDS: Topiramate 25 MG TABLET 50 MG PO ×2 (08:50→20:34)
[2024-07-22] MEDS: Lithium Carbonate 300 MG CAPSULE PO ×2 (08:51→20:35)
[2024-07-22] MEDS: Famotidine/PF 20 MG/2 ML VIAL IVPUSH (08:51)
[2024-07-22] MEDS: Chlorhexidine Gluc Oral Rinse 15 ML MOUTHWASH BUCCAL ×3 (08:54→22:00)
[2024-07-22 08:59] LABS: Basophils Absolute Auto 0.1 X10*3/uL (0.0-0.2); Basophils Percent Auto 0.3 % (0-2); Eosinophils Percent Auto 0.1 % (0-4); Hematocrit 49.1 % (42.0-52.0); Hemoglobin 15.1 g/dl (14.0-18.0); Imm Gran Abs Auto 0.12 X10*3/uL (0.00-0.03); Imm Gran Pct Auto 0.6 % (0.0-0.4); Lymphocytes Absolute Auto 0.9 X10*3/uL (1.2-4.9); Lymphocytes Percent Auto 4.5 % (20-40); MANUAL DIFF FLAG SCAN; Mean Corpuscular HGB Conc 30.8 g/dl (31.0-36.0); Mean Corpuscular Hemoglobin 29.5 pg (27.0-33.0); Mean Corpuscular Volume 95.9 fL (80.0-98.0); Monocytes Absolute Auto 0.5 X10*3/uL (0.1-1.2); Monocytes Percent Auto 2.7 % (2-11); Neutrophils Absolute Auto 17.8 x10*3/uL (2.0-8.3); Neutrophils Percent Auto 91.8 % (45-73); Platelet Count 261 X10*3/uL (160-400); Red Blood Count 5.12 X10*6/uL (4.60-5.80); Red Cell Distribution Width 15.6 % (11.0-16.0); SCAN SMEAR FLAG 1; White Blood Count 19.4 X10*3/uL (4.8-10.8)
[2024-07-22 09:01] LABS: Ammonia 41 umol/L (13-55)
[2024-07-22 09:17] LABS: Albumin Level 3.3 g/dL (3.5-5.0); Anion Gap 12 (12-20); Blood Urea Nitrogen 20 mg/dL (9-16); Calcium 8.4 mg/dL (8.4-10.2); Carbon Dioxide 30 mmol/L (22-29); Chloride 100 mmol/L (96-108); Creatinine Clr Calc Pharmacy 89.1; Estimated Glomerular Filt Rate > 60; Glucose Random 143 mg/dL (60-115); Magnesium 2.3 mg/dL (1.6-2.6); Phosphorus 2.3 mg/dL (2.7-4.5); Potassium 5.2 mmol/L (3.3-5.1); Sodium 137 mmol/L (135-145)
[2024-07-22 09:23] LABS: SLIDE REVIEW VERIFIED
--- NOTE | 2024-07-22 09:54 | PM.CCPN ---
Subjective Subjective Date of Service: 07/22/24 Interval History: 63-year-old gentleman with underlying TBI, seizure disorder, diabetes mellitus, COPD admitted on 07/21/2024 with acute hypoxic and hypercapnic respiratory failure requiring intubation and ventilatory support likely secondary to pulmonary aspiration. Hospital course also significant for what appears to be streptococcal bacteremia. No events overnight. Critical Care Time (minutes): 60 Physical Exam Vital Signs: Vital Signs: Last Vital Signs Temp 102.2 F H 07/22/24 09:00 Pulse 52 07/22/24 09:40 Resp 18 07/22/24 09:00 BP 78/41 L 07/22/24 09:40 Pulse Ox 100 07/22/24 09:00 O2 Del Method Mechanical Ventil ation 07/22/24 09:00 O2 Flow Rate 6 07/21/24 18:17 FiO2 50 07/22/24 09:00 BMI result Body Mass Index 37.8 Const: General: no acute distress Nutritional Appearance: obese Eyes: Sclerae: sclerae normal Neck: Neck: Yes no lymphadenopathy, Yes trachea midline and Yes supple Resp: Auscultation: crackles (Mild bibasilar) Cardio: Rate: bradycardic Rhythm: regular rhythm Heart sounds: no gallops, no murmurs and no rubs GI: Palpation (GI): Soft to palpation and Other GI palpation findings present ( Nontender) Auscultation: normal bowel sounds Extrem: General: No clubbing and No cyanosis Objective Data Labs 07/22/24 08:42 07/22/24 08:42 Labs: Laboratory Results - last 24 hr 07/21/24 07/21/24 07/21/24 17:55 18:11 21:21 WBC 16.6 H RBC 5.06 Hgb 14.7 Hct 51.0 MCV 100.8 H MCH 29.1 MCHC 28.8 L RDW 15.6 Plt Count 275 D MPV 11.1 Immature Gran % (Auto) 0.5 H Neut % (Auto) 83.7 H Lymph % (Auto) 10.5 L [place] % (Auto) 4.4 Eos % (Auto) 0.7 Baso % (Auto) 0.2 Lymph # (Auto) 1.8 [place] # (Auto) 0.7 Eos # (Auto) 0.1 Baso # (Auto) 0.0 Abs Immat Gran (auto) 0.08 H Absolute Neuts (auto) 13.9 H Absolute Nucleated RBC 0.000 Nucleated RBC % (auto) 0.0 Smear Tech's Comments Hold Purple Top SEE NOTE Hold Blue Top O2 Saturation 93.0 ABG pH at Pt Temp 7.23 L ABG pCO2 at Pt Temp 100 H* ABG pO2 at Pt Temp 84 ABG HCO3 42 H ABG Base Excess (Actual) 10.0 VBG pH 7.63 H* VBG pCO2 30 VBG pO2 72 VBG HCO3 32 H VBG O2 Saturation 97.0 VBG Base Excess 11.5 Sodium 137 Potassium 4.5 D Chloride 94 L Carbon Dioxide 37 H Anion Gap 11 L BUN 16 Creatinine 0.81 Estim Creat Clear Calc 115.4 Estimated GFR > 60 POC Glucose Random Glucose 112 Lactic Acid 0.7 Calcium 9.3 Phosphorus Magnesium 2.3 Total Bilirubin 0.3 Direct Bilirubin 0.2 AST 30 ALT 30 Alkaline Phosphatase 95 Ammonia 150 H Total Protein 7.7 Albumin 4.1 Hold Red Top Hold Yellow Top Urine Color Urine Appearance Urine pH Ur Specific [place] Urine Protein Urine Glucose (UA) Urine Ketones Urine Blood Urine Nitrite Ur Leukocyte Esterase Urine RBC Urine WBC Ur Squamous Epith Cells Urine Bacteria Hyaline Casts Influenza Type A (PCR) Influenza Type B (PCR) RSV RNA Qual (PCR) SARS-CoV-2 RNA (RT-PCR) 07/21/24 07/21/24 07/21/24 21:30 22:10 22:46 WBC RBC Hgb Hct MCV MCH MCHC RDW Plt Count MPV Immature Gran % (Auto) Neut % (Auto) Lymph % (Auto) [place] % (Auto) Eos % (Auto) Baso % (Auto) Lymph # (Auto) [place] # (Auto) Eos # (Auto) Baso # (Auto) Abs Immat Gran (auto) Absolute Neuts (auto) Absolute Nucleated RBC Nucleated RBC % (auto) Smear Tech's Comments Hold Purple Top Hold Blue Top O2 Saturation ABG pH at Pt Temp ABG pCO2 at Pt Temp ABG pO2 at Pt Temp ABG HCO3 ABG Base Excess (Actual) VBG pH VBG pCO2 VBG pO2 VBG HCO3 VBG O2 Saturation VBG Base Excess Sodium Potassium Chloride Carbon Dioxide Anion Gap BUN Creatinine Estim Creat Clear Calc Estimated GFR POC Glucose 157 H Random Glucose Lactic Acid Calcium Phosphorus Magnesium Total Bilirubin Direct Bilirubin AST ALT Alkaline Phosphatase Ammonia Total Protein Albumin Hold Red Top Hold Yellow Top Urine Color Yellow Urine Appearance Clear Urine pH 7.5 Ur Specific [place] <= 1.005 Urine Protein Negative Urine Glucose (UA) Negative Urine Ketones Negative Urine Blood Trace H Urine Nitrite Negative Ur Leukocyte Esterase Negative Urine RBC 3-5 H Urine WBC 0-5 Ur Squamous Epith Cells 0-2 Urine Bacteria None Seen Hyaline Casts 0-2 Influenza Type A (PCR) NEGATIVE Influenza Type B (PCR) NEGATIVE RSV RNA Qual (PCR) NEGATIVE SARS-CoV-2 RNA (RT-PCR) NEGATIVE 07/22/24 07/22/24 07/22/24 05:40 08:12 08:42 WBC 19.4 H RBC 5.12 Hgb 15.1 Hct 49.1 MCV 95.9 MCH 29.5 MCHC 30.8 L RDW 15.6 Plt Count 261 MPV 11.0 Immature Gran % (Auto) 0.6 H Neut % (Auto) 91.8 H Lymph % (Auto) 4.5 L [place] % (Auto) 2.7 Eos % (Auto) 0.1 Baso % (Auto) 0.3 Lymph # (Auto) 0.9 L [place] # (Auto) 0.5 Eos # (Auto) 0.0 Baso # (Auto) 0.1 Abs Immat Gran (auto) 0.12 H Absolute Neuts (auto) 17.8 H Absolute Nucleated RBC 0.000 Nucleated RBC % (auto) 0.0 Smear Tech's Comments VERIFIED Hold Purple Top Hold Blue Top SEE NOTE O2 Saturation 92.0 ABG pH at Pt Temp 7.51 H ABG pCO2 at Pt Temp 40 ABG pO2 at Pt Temp 67 L ABG HCO3 32 H ABG Base Excess (Actual) 8.9 VBG pH VBG pCO2 VBG pO2 VBG HCO3 VBG O2 Saturation VBG Base Excess Sodium 137 Potassium 5.2 H Chloride 100 Carbon Dioxide 30 H Anion Gap 12 BUN 20 H Creatinine 1.07 Estim Creat Clear Calc 89.1 Estimated GFR > 60 POC Glucose 149 H Random Glucose 143 H Lactic Acid Calcium 8.4 D Phosphorus 2.3 L Magnesium 2.3 Total Bilirubin Direct Bilirubin AST ALT Alkaline Phosphatase Ammonia 41 Total Protein Albumin 3.3 L Hold Red Top See Note Hold Yellow Top See Note Urine Color Urine Appearance Urine pH Ur Specific [place] Urine Protein Urine Glucose (UA) Urine Ketones Urine Blood Urine Nitrite Ur Leukocyte Esterase Urine RBC Urine WBC Ur Squamous Epith Cells Urine Bacteria Hyaline Casts Influenza Type A (PCR) Influenza Type B (PCR) RSV RNA Qual (PCR) SARS-CoV-2 RNA (RT-PCR) Microbiology Microbiology Results: Microbiology 07/21/24 18:11 Blood - Venous Blood Culture - Preliminary Prelim: GPC Gram Stain only Progress Note: A&P Assessment and plan (1) Diabetes mellitus: Status: Acute (2) Urinary retention: Status: Acute (3) Bacteremia: Status: Acute (4) TBI (traumatic brain injury): Status: Acute (5) Epilepsy: Status: Acute (6) Aspiration into airway: Status: Acute (7) Acute on chronic respiratory failure with hypoxia and hypercapnia: Status: Acute Plan Assessment: 63-year-old gentleman with underlying TBI, seizure disorder, COPD admitted 07/08/2024 with acute hypoxic and hypercapnic respiratory failure likely secondary to pulmonary aspiration requiring intubation and ventilatory support Plan: Neuro: No acute issues. Underlying TBI and seizure disorder. Continue lithium and topiramate. Cardiac: No acute issues. Pulmonary: Acute hypoxic and hypercapnic respiratory failure requiring ventilatory support, likely secondary to pulmonary aspiration. Underlying COPD. Renal: No acute issues. Endo: No acute issues. Underlying diabetes mellitus. GI: No acute issues. ID: Preliminary streptococcal bacteremia, continue Unasyn. R Heme/Onc: No acute issues. Psych: No acute issues. Miscellaneous: No acute issues. Prophylaxis: Lovenox, famotidine Diet: NPO Critical care time spent: 60 minutes Quality Stroke Does the patient have a stroke diagnosis?: No VTE Prior VTE?: No VTE Risk Level:: Medical - moderate - high VTE Device Contraindication: N/A - Device Ordered VTE Drug Contraindication: N/A - Med Ordered
--- NOTE | 2024-07-22 10:04 | MHC.CLN ---
PT MAY REQUIRE TF FOR NUTRITION SUPPORT R/T PROLONGED NPO STATUS PT IS INTUBATED AND SEDATED IF TF NEEDED; RECOMMEND GLUCERNA AT MAX GOAL RATE 65ML/HR WITH 240ML FREE WATER FLUSHES Q 8 HRS TO PROVIDE 1560KCALS (1742KCALS WITH SEDATION; 23KCALS/KG BASED ON IBW), 65G PROTEIN, 2050ML TOTAL FREE WATER FROM FORMULA AND FLUSHES (31.5ML/KG) MONITOR TOLERANCE AND LYTES FULL ASSESSMENT TO FOLLOW
[2024-07-22] MEDS: Albumin Human 25 % 100 ML IV ×3 (11:13→22:17)
--- NOTE | 2024-07-22 11:24 | P.CDIM_ITS ---
PROVIDER RESPONSE TEXT: To clarify, the appropriate diagnosis supported by the clinical indicators: Other (explain): Too early to determine with any degree of specificity QUERY TEXT: PHYSICIAN'S DOCUMENTATION REQUEST Date of Query: 07/22/2024 11:07 AM EDT Patient Name: Orlando Gilbert Admit Date: 07/22/2024 Dear Daniel Blanton MD, A review of the medical record indicates additional documentation may be needed. Please review below and update the documentation accordingly. Clinical Indicators: ED 07/21 - PMH Aspiration Pneumonia. Intubated for protection, short of breath, diminished breath sounds bilaterally. ICU H&P 07/21/24 - Chest X-ray - Impression: Consistent aspiration with worsening airspace disease in the right upper lobe may reflect pneumonitis or degree of pulmonary edema. Acute hypercapnic respiratory failure requiring ventilatory support, likely secondary to pulmonary as piration. Unasyn. Based on the above, could you clarify in the Progress Notes further specificity regarding the most li che type of pulmonary aspiration: Aspiration Pneumonia Please indicate substance such as food or vomitus, oils, or other solids or liquids Aspiration Pneumonitis Please indicate if vomitus, bronchitis, mucus, or other specified Other specified Other (explain) Clinically unable to determine (explain) Thank you, Jacqui Mckeon, CCS, CDIS Use of terms such as suspected, likely, concern for, or probable (associated with a specific diagnosi s that is being evaluated, monitored, or treated as if it exists) are acceptable and can be coded in the inpatient se tting, when documented at the time of discharge. Please use your independent medical judgment in providing your response. THIS QUERY IS PART OF THE PERMANENT MEDICAL RECORD
[2024-07-22 11:50] LABS: Glucose, Whole Blood 99 mg/dL (60-115)
[2024-07-22] MEDS: Potassium Phosphate/NS 15 MMOL/250 ML PLAST..BAG 62.5 MMOL IV (12:12)
[2024-07-22] MEDS: cefTRIAXone sodium 1 GM VIAL IVPUSH (13:21)
--- NOTE | 2024-07-22 13:27 | MHC.CM.PN ---
Pt is a L[facility] resident of [facility]: he is intubated and unable to participate in CM assessment. Information obtained from prior admissions and discussion w/pt's sister/HCP, Tran. Pt is w/c bound and requires physical assistance for all ADL's. Pt has a longstanding hx of medication and treatment non compliance with frequent readmissions for respiratory failure requiring intubation. He also has behavioral outbursts r/t brain injury/schizophrenia. Per Tran, during pt's past 2 admissions, she asked him about continued resuscitative efforts to which pt requested everything Tran will be in to visit this weekend and will ask pt about DNI status. HCP on file, IMM in chart. Pt will return to [facility] via BLS when medically able. CM to follow.
[2024-07-22] MEDS: Phenylephrine HCL 20 MG in 0.9 % Sodium Chloride 250 ML 43.47 MG IVCONT ×2 (13:50→19:07)
[2024-07-22] MEDS: DOPamine HCL/D5W 400 MG/250 ML PLAST..BAG 22.39 MG IVCONT (14:22)
--- NOTE | 2024-07-22 14:27 | PC.NURSE ---
7-3 shift review p: alteration in cardiac funtion i: per nursing care plan e: at beginning of shift patient noted be bradycardic down to mid 30s. MD made aware. all sedation held at this time to prevent further bradycardia. a 12 lead ekg was completed. BPs soft, oscar started. titrated between 0.5 and 1 mg throughout the day. pt had multiple, brief episodes of vtach runs. copy of cardiac rhythm strip given to MD. at approximately 1400, pt sustaining in the mid 30s for heart rate. Pt was switched from oscar to dopamine per MD. HR increased to the 60s. p: alteration in immunologic i: per nursing care plan e: febrile up to 102.4 tmax today. cooling blanket initiated. tylenol given. found to have positive blood cultures. MD aware. of note, pt developed a red, warm, diffuse rash following unasyn administration. MD aware and DCed unasyn and replaced with ceftriaxone. p: alteration in respiratory funtion i: per nursing care plan e: tolerating vent settings at ACVC+ 16/470/5/30%. patient was turned and repositioned Q2. preventative foam is present to coccyx.
[2024-07-22] MEDS: propofoL 1,000 MG/100 ML VIAL 13.8 MG IVCONT (14:49)
[2024-07-22] MEDS: Phenylephrine HCL 20 MG in 0.9 % Sodium Chloride 250 ML 86.94 MG IVCONT (16:42)
[2024-07-22] MEDS: Insulin Lispro 100 UNIT/ML 3 ML VIAL SUBCUT (18:31)
--- NOTE | 2024-07-22 18:34 | PC.NURSE ---
Assumed care at 1500. Pt intubated with sedative and cardiac drips. Pt on cooling blanket. Pt sporadically breaks through sedation. Does not track or follow commands. See MAR and assessments for further details. Pt repositioned q2hr as tolerated.
[2024-07-22] MEDS: Midazolam HCl 2 MG/2 ML VIAL 4 MG IVPUSH (19:35)
[2024-07-22] MEDS: fentaNYL citrate/PF 100 MCG/2 ML VIAL IVPUSH (19:44)
[2024-07-22 19:56] LABS: Glucose, Whole Blood 236 mg/dL (60-115)
[2024-07-22 19:56] LABS: Glucose, Whole Blood 227 mg/dL (60-115)
[2024-07-22] MEDS: Enoxaparin Sodium 40 MG/0.4 ML SYRINGE SUBCUT (20:33)
--- NOTE | 2024-07-22 23:26 | HE.ICUCC ---
ICU Critical Care Nursing Note/ Late entry ICU Day #:1 Vent Day #:1 Neuro: Cardiac: Resp: GI/: Endocrine: Integumentary/Musculoskeletal: Psychosocial (family etc.): Infectious Disease: Central Lines:
--- NOTE | 2024-07-22 23:36 | PC.NURSE ---
Late Entry: Assumed care of patient 07/22/24 at 1930 Patient emergently intubated in ED for airway protection and admitted to ICU. Neuros intact /PERRLA. Ventilator on ACVC+ settings 16/520/5/30% , LS clear /dim. Sinus dmitry/BBB on telemetry. HR in the 50's. See MAR for sedation medications. Patient receiving Unasyn for antibiotics. + BSx4, abdomen soft . Martins catheter in place draining CYU Temp of 101.7 noted. Tylenol administered with minimal effect. BP stable, phenylephrine paused prior to arrival to ICU.
[2024-07-23] VITALS (37 sets, daily range): BP systolic 97–173; BP diastolic 51–77; PULSE 50–72; RESP 14–29; TEMP 35–37.8; O2SAT 90–100; BMI 37.8
[2024-07-23] MEDS: DOPamine HCL/D5W 400 MG/250 ML PLAST..BAG 22.39 MG IVCONT ×2 (00:18→11:25)
[2024-07-23 00:29] LABS: Glucose, Whole Blood 200 mg/dL (60-115)
[2024-07-23] MEDS: Insulin Lispro 100 UNIT/ML 3 ML VIAL SUBCUT (00:34)
[2024-07-23] MEDS: propofoL 1,000 MG/100 ML VIAL 34.5 MG IVCONT ×4 (01:06→08:56)
[2024-07-23] MEDS: Albumin Human 25 % 100 ML IV (03:47)
[2024-07-23 05:31] LABS: VBG Base Excess 10.1 mmol/L; VBG HCO3 35 mmol/L (22-26); VBG pCO2 46 mmHg; VBG pH 7.48 (7.32-7.43); VBG pO2 58 mmHg
[2024-07-23 05:48] LABS: Venous Blood Gas Refer to POC result
[2024-07-23 06:10] LABS: MANUAL DIFF FLAG NO
[2024-07-23 06:12] LABS: Basophils Percent Auto 0.1 % (0-2); Eosinophils Percent Auto 0.1 % (0-4); Hematocrit 41.5 % (42.0-52.0); Hemoglobin 12.9 g/dl (14.0-18.0); Imm Gran Abs Auto 0.05 X10*3/uL (0.00-0.03); Imm Gran Pct Auto 0.4 % (0.0-0.4); Lymphocytes Absolute Auto 0.8 X10*3/uL (1.2-4.9); Lymphocytes Percent Auto 6.4 % (20-40); Mean Corpuscular HGB Conc 31.1 g/dl (31.0-36.0); Mean Corpuscular Hemoglobin 29.6 pg (27.0-33.0); Mean Corpuscular Volume 95.2 fL (80.0-98.0); Monocytes Absolute Auto 0.5 X10*3/uL (0.1-1.2); Monocytes Percent Auto 3.9 % (2-11); Neutrophils Absolute Auto 10.8 x10*3/uL (2.0-8.3); Neutrophils Percent Auto 89.1 % (45-73); Platelet Count 210 X10*3/uL (160-400); Red Blood Count 4.36 X10*6/uL (4.60-5.80); Red Cell Distribution Width 15.5 % (11.0-16.0); White Blood Count 12.1 X10*3/uL (4.8-10.8)
[2024-07-23 06:22] LABS: Glucose, Whole Blood 137 mg/dL (60-115)
[2024-07-23 06:32] LABS: Albumin Level 4.5 g/dL (3.5-5.0); Anion Gap 13 (12-20); Blood Urea Nitrogen 17 mg/dL (9-16); Calcium 8.7 mg/dL (8.4-10.2); Carbon Dioxide 31 mmol/L (22-29); Chloride 101 mmol/L (96-108); Creatinine Clr Calc Pharmacy 108.3; Estimated Glomerular Filt Rate > 60; Glucose Random 145 mg/dL (60-115); Magnesium 2.5 mg/dL (1.6-2.6); Phosphorus 2.3 mg/dL (2.7-4.5); Potassium 3.7 mmol/L (3.3-5.1); Sodium 141 mmol/L (135-145)
[2024-07-23] MEDS: Potassium Phosphate/NS 15 MMOL/250 ML PLAST..BAG 62.5 MMOL IV (07:22)
[2024-07-23] MEDS: Lithium Carbonate 300 MG TABLET 150 MG PO ×2 (08:00→21:08)
[2024-07-23] MEDS: Lithium Carbonate 300 MG CAPSULE PO ×2 (08:00→21:08)
[2024-07-23] MEDS: Chlorhexidine Gluc Oral Rinse 15 ML MOUTHWASH BUCCAL (08:01)
[2024-07-23] MEDS: Topiramate 25 MG TABLET 50 MG PO ×2 (08:01→21:08)
[2024-07-23] MEDS: Famotidine/PF 20 MG/2 ML VIAL IVPUSH (08:01)
--- NOTE | 2024-07-23 08:45 | MHC.CLN ---
PT MAY REQUIRE TF FOR NUTRITION SUPPORT R/T PROLONGED NPO STATUS PT IS INTUBATED AND SEDATED IF TF NEEDED; RECOMMEND GLUCERNA AT MAX GOAL RATE 50ML/HR WITH 300ML FREE WATER FLUSHES Q 6 HRS TO PROVIDE 1200KCALS (2110KCALS WITH SEDATION; 28KCALS/KG BASED ON IBW), 50G PROTEIN, 2224ML TOTAL FREE WATER FROM FORMULA AND FLUSHES (30ML/KG) MONITOR TOLERANCE AND LYTES MONITOR FOR DIET ADVANCEMENT SEE ALSO FULL CLINICAL NUTRITION ASSESSMENT
--- NOTE | 2024-07-23 11:03 | P.PNCC_ITS ---
Subjective Subjective Date of Service: 07/23/24 Interval History: 63-year-old gentleman with underlying TBI, seizure disorder, diabetes mellitus, COPD admitted on 07/21/2024 with acute hypoxic and hypercapnic respiratory failure requiring intubation and ventilatory support likely secondary to pulmonary aspiration. Hospital course significant for streptococcal/Enterococcus bacteremia. No events overnight. Critical Care Time (minutes): 60 Physical Exam 2 Vital Signs: Vital Signs: Last Vital Signs Temp 100.0 F 07/23/24 09:00 Pulse 54 07/23/24 10:00 Resp 16 07/23/24 10:00 BP 144/71 H 07/23/24 10:00 Pulse Ox 93 07/23/24 10:00 O2 Del Method Mechanical Ventil ation 07/23/24 10:00 O2 Flow Rate 3 07/22/24 12:00 FiO2 30 07/23/24 10:00 BMI result Body Mass Index 37.8 Const: General: no acute distress and other (Sedated on ventilatory support) Nutritional Appearance: obese Eyes: Sclerae: sclerae normal EOM: EOMs intact bilaterally Neck: Neck: Yes no lymphadenopathy, Yes trachea midline and Yes supple Resp: Auscultation: clear to auscultation bilaterally Cardio: Rate: regular rate Rhythm: regular rhythm Heart sounds: no gallops, no murmurs and no rubs GI: Palpation (GI): Soft to palpation and Other GI palpation findings present ( Nontender) Auscultation: normal bowel sounds Extrem: General: No clubbing, No cyanosis and Yes edema (Trace bilateral) Objective Data Labs 07/23/24 05:25 07/23/24 05:25 Labs: Laboratory Results - last 24 hr 07/22/24 07/22/24 07/22/24 11:45 18:29 19:51 WBC RBC Hgb Hct MCV MCH MCHC RDW Plt Count MPV Immature Gran % (Auto) Neut % (Auto) Lymph % (Auto) [place] % (Auto) Eos % (Auto) Baso % (Auto) Lymph # (Auto) [place] # (Auto) Eos # (Auto) Baso # (Auto) Abs Immat Gran (auto) Absolute Neuts (auto) Absolute Nucleated RBC Nucleated RBC % (auto) VBG pH VBG pCO2 VBG pO2 VBG HCO3 VBG O2 Saturation VBG Base Excess Sodium Potassium Chloride Carbon Dioxide Anion Gap BUN Creatinine Estim Creat Clear Calc Estimated GFR POC Glucose 99 227 H 236 H Random Glucose Calcium Phosphorus Magnesium Albumin 07/23/24 07/23/24 07/23/24 00:21 05:25 05:27 WBC 12.1 H RBC 4.36 L Hgb 12.9 L Hct 41.5 L MCV 95.2 MCH 29.6 MCHC 31.1 RDW 15.5 Plt Count 210 MPV 11.0 Immature Gran % (Auto) 0.4 Neut % (Auto) 89.1 H Lymph % (Auto) 6.4 L [place] % (Auto) 3.9 Eos % (Auto) 0.1 Baso % (Auto) 0.1 Lymph # (Auto) 0.8 L [place] # (Auto) 0.5 Eos # (Auto) 0.0 Baso # (Auto) 0.0 Abs Immat Gran (auto) 0.05 H Absolute Neuts (auto) 10.8 H Absolute Nucleated RBC 0.000 Nucleated RBC % (auto) 0.0 VBG pH 7.48 H VBG pCO2 46 VBG pO2 58 VBG HCO3 35 H VBG O2 Saturation 84.0 VBG Base Excess 10.1 Sodium 141 Potassium 3.7 D Chloride 101 Carbon Dioxide 31 H Anion Gap 13 BUN 17 H Creatinine 0.88 Estim Creat Clear Calc 108.3 Estimated GFR > 60 POC Glucose 200 H Random Glucose 145 H Calcium 8.7 Phosphorus 2.3 L Magnesium 2.5 Albumin 4.5 07/23/24 06:19 WBC RBC Hgb Hct MCV MCH MCHC RDW Plt Count MPV Immature Gran % (Auto) Neut % (Auto) Lymph % (Auto) [place] % (Auto) Eos % (Auto) Baso % (Auto) Lymph # (Auto) [place] # (Auto) Eos # (Auto) Baso # (Auto) Abs Immat Gran (auto) Absolute Neuts (auto) Absolute Nucleated RBC Nucleated RBC % (auto) VBG pH VBG pCO2 VBG pO2 VBG HCO3 VBG O2 Saturation VBG Base Excess Sodium Potassium Chloride Carbon Dioxide Anion Gap BUN Creatinine Estim Creat Clear Calc Estimated GFR POC Glucose 137 H Random Glucose Calcium Phosphorus Magnesium Albumin Microbiology Microbiology Results: Microbiology 07/21/24 18:11 Blood - Venous Blood Culture - Preliminary Enterococcus/Streptococcus sp 07/21/24 18:11 Blood - Venous Blood Culture - Preliminary No growth after 24 hours. Progress Note: A&P Assessment and plan (1) Bacteremia due to Enterococcus: Status: Acute (2) Streptococcal bacteremia: Status: Acute (3) Aspiration into airway: Status: Acute (4) Diabetes mellitus: Status: Acute (5) Acute respiratory failure with hypoxia and hypercarbia: Status: Acute Plan Assessment: 63-year-old gentleman with underlying TBI, seizure disorder, COPD admitted 07/08/2024 with acute hypoxic and hypercapnic respiratory failure likely secondary to pulmonary aspiration requiring intubation and ventilatory support Plan: Neuro: No acute issues. Underlying TBI and seizure disorder. Continue lithium and topiramate. Cardiac: No acute issues. Pulmonary: Acute hypoxic and hypercapnic respiratory failure requiring ventilatory support, likely secondary to pulmonary aspiration. Underlying COPD. Continue to titrate off ventilatory support as tolerated. Renal: No acute issues. Endo: No acute issues. Underlying diabetes mellitus. GI: No acute issues. ID: Streptococcal/Enterococcus bacteremia. Allergic reaction previously to ampicillin and vancomycin. Add linezolid, continue ceftriaxone. Heme/Onc: No acute issues. Psych: No acute issues. Miscellaneous: No acute issues. Prophylaxis: Lovenox, famotidine Diet: NPO Critical care time spent: 60 minutes Quality Stroke Does the patient have a stroke diagnosis?: No VTE Prior VTE?: No VTE Risk Level:: Medical - moderate - high VTE Device Contraindication: N/A - Device Ordered VTE Drug Contraindication: N/A - Med Ordered
[2024-07-23] MEDS: Linezolid/D5W 600 MG/300 ML PIGGYBACK 300 MG IV ×2 (11:53→23:21)
[2024-07-23] MEDS: propofoL 1,000 MG/100 ML VIAL 13.8 MG IVCONT (11:58)
[2024-07-23 12:04] LABS: Glucose, Whole Blood 141 mg/dL (60-115)
[2024-07-23] MEDS: cefTRIAXone sodium 1 GM VIAL IVPUSH (13:35)
--- NOTE | 2024-07-23 17:16 | PC.NURSE ---
Assumed care at 0700. Pt remains intubated on sedative and cardiac drips. Pt restless, especially with care. Pt had 14 beat run of vtach at 0817. MD made aware. Pt arrived on unit with samuels but no order. Order placed. Samuels removed and replaced with male purewick. Pt is due to void by 1630. Sedation decreased starting at 1145. At 1220, pt placed on PSV by RT. Settings were 18/5 with fio2 of 30%. Per MD request to get as close to 5/5 as possible, pt placed lisa 14/5 after an unsuccessful attempt at 10/5. MD ordered extubation. RT at bedside. Pt uneventfully extubated at 1325. Oral suction provided. Pt placed on 2L via nasal cannula. Pt able to speak. Family at bedside. Pt restless, camera placed in room. Pt did not pass nursing bedside swallow evaluation. Pt voided at 1630. See MAR and assessments for further details. Pt repositioned q2hr as tolerated.
--- NOTE | 2024-07-23 17:28 | MHC.SLORD ---
Speech Language Pathology Order Status: Received order for bedside swallow evaluation- Patient was extubated at 13:25 per RN note, reportedly failed his RN swallow screening. Patient is familiar to [employer] TE[employer] service- seen 03/26-04/12, again on 07/14. Patient has significant dysphagia, was recommended pureed diet/honey thick liquids prior to intubation. Given significant difficulties prior to ICU stay, which may likely be further exacerbated by intubation/extubation, [employer] TE[employer] eval deferred at least 24 hours post extubation. Patient will benefit from further assessment w/ MBSS if/when appropriate. Discussed w/ Dr. Blanton via [employer]. Advised Dr. Blanton that [employer]ULIN[employer] TEACHER is public relations account supervisor over the weekend if needed through [employer].
[2024-07-23 18:26] LABS: Glucose, Whole Blood 115 mg/dL (60-115)
[2024-07-23] MEDS: Enoxaparin Sodium 40 MG/0.4 ML SYRINGE SUBCUT (21:08)
[2024-07-23 23:17] LABS: Glucose, Whole Blood 114 mg/dL (60-115)
[2024-07-24] VITALS (17 sets, daily range): BP systolic 90–141; BP diastolic 50–76; PULSE 50–82; RESP 12–24; TEMP 36.1–37.1; O2SAT 93–98; BMI 32.4; BMI 37.2
[2024-07-24 05:31] LABS: VBG Base Excess 9.4 mmol/L; VBG HCO3 38 mmol/L (22-26); VBG pCO2 73 mmHg; VBG pH 7.32 (7.32-7.43); VBG pO2 40 mmHg
[2024-07-24 05:33] LABS: Basophils Percent Auto 0.2 % (0-2); Eosinophils Percent Auto 7.8 % (0-4); Hemoglobin 12.9 g/dl (14.0-18.0); Imm Gran Abs Auto 0.04 X10*3/uL (0.00-0.03); Imm Gran Pct Auto 0.3 % (0.0-0.4); Lymphocytes Absolute Auto 0.9 X10*3/uL (1.2-4.9); Lymphocytes Percent Auto 7.6 % (20-40); MANUAL DIFF FLAG NO; Mean Corpuscular HGB Conc 29.3 g/dl (31.0-36.0); Mean Corpuscular Hemoglobin 29.3 pg (27.0-33.0); Mean Platelet Volume 10.4 fL (9.4-12.4); Monocytes Absolute Auto 0.6 X10*3/uL (0.1-1.2); Monocytes Percent Auto 4.9 % (2-11); Neutrophils Absolute Auto 9.7 x10*3/uL (2.0-8.3); Neutrophils Percent Auto 79.2 % (45-73); Platelet Count 173 X10*3/uL (160-400); Red Cell Distribution Width 15.6 % (11.0-16.0); White Blood Count 12.2 X10*3/uL (4.8-10.8)
[2024-07-24 05:58] LABS: Alanine Aminotransferase 14 U/L (0-40); Albumin Level 4.2 g/dL (3.5-5.0); Alkaline Phosphatase 61 U/L (39-117); Anion Gap 11 (12-20); Aspartate Amino Transferase 17 U/L (5-37); Bilirubin Total 0.7 mg/dL (0.0-1.0); Blood Urea Nitrogen 16 mg/dL (9-16); Calcium 8.8 mg/dL (8.4-10.2); Carbon Dioxide 34 mmol/L (22-29); Chloride 102 mmol/L (96-108); Creatinine Clr Calc Pharmacy 107.1; Estimated Glomerular Filt Rate > 60; Glucose Random 103 mg/dL (60-115); Magnesium 2.5 mg/dL (1.6-2.6); Phosphorus 4.2 mg/dL (2.7-4.5); Potassium 4.5 mmol/L (3.3-5.1); Sodium 142 mmol/L (135-145); Total Protein 6.9 g/dL (6.5-8.0)
[2024-07-24] MEDS: Famotidine/PF 20 MG/2 ML VIAL IVPUSH (09:01)
--- NOTE | 2024-07-24 09:47 | PC.NURSE ---
Assumed care @ 0700 Neuro: Alert & oriented x2 Respiratory: On 1L NC, Sp02 low 90s, Coarse breath sounds bilaterally bases, Expiratory wheezing Cardiac: Sinus Rhythm? GI:? unknown LBM, +bowel sounds, NPO, awaiting speech eval : External catheter in place Skin: Generalized rash? Infectious: IV antibiotics Lines: Peripheral IVs Plan: Transfer to Medicine. No longer requiring ICU-level care.
--- NOTE | 2024-07-24 09:51 | P.PNCC_ITS ---
Subjective Subjective Date of Service: 07/24/24 Interval History: 63-year-old gentleman with underlying TBI, seizure disorder, diabetes mellitus, COPD admitted on 07/21/2024 with acute hypoxic and hypercapnic respiratory failure requiring intubation and ventilatory support likely secondary to pulmonary aspiration. Hospital course significant for streptococcal/Enterococcus bacteremia. Extubated 07/23/2024. No events overnight. Critical Care Time (minutes): 0 Physical Exam 2 Vital Signs: Vital Signs: Last Vital Signs Temp 98.3 F 07/24/24 08:00 Pulse 54 07/24/24 09:00 Resp 15 07/24/24 09:00 BP 104/62 07/24/24 09:00 Pulse Ox 95 07/24/24 09:00 O2 Del Method Nasal Cannula 07/24/24 09:00 O2 Flow Rate 2 07/24/24 09:00 FiO2 30 07/23/24 13:00 BMI result Body Mass Index 32.4 Const: General: no acute distress, alert and awake Eyes: Sclerae: sclerae normal EOM: EOMs intact bilaterally Neck: Neck: Yes no lymphadenopathy, Yes trachea midline and Yes supple Resp: Effort & Inspection: normal respiratory effort and no respiratory distress Auscultation: clear to auscultation bilaterally Cardio: Rate: regular rate Rhythm: regular rhythm Heart sounds: no gallops, no murmurs and no rubs GI: Palpation (GI): Soft to palpation and Other GI palpation findings present ( Nontender) Auscultation: normal bowel sounds Extrem: General: No clubbing, No cyanosis and Yes edema (Trace bilateral) Objective Data Labs 07/24/24 05:24 07/24/24 05:24 Labs: Laboratory Results - last 24 hr 07/23/24 07/23/24 07/23/24 12:01 18:22 23:13 WBC RBC Hgb Hct MCV MCH MCHC RDW Plt Count MPV Immature Gran % (Auto) Neut % (Auto) Lymph % (Auto) [place] % (Auto) Eos % (Auto) Baso % (Auto) Lymph # (Auto) [place] # (Auto) Eos # (Auto) Baso # (Auto) Abs Immat Gran (auto) Absolute Neuts (auto) Absolute Nucleated RBC Nucleated RBC % (auto) VBG pH VBG pCO2 VBG pO2 VBG HCO3 VBG O2 Saturation VBG Base Excess Sodium Potassium Chloride Carbon Dioxide Anion Gap BUN Creatinine Estim Creat Clear Calc Estimated GFR POC Glucose 141 H 115 114 Random Glucose Calcium Phosphorus Magnesium Total Bilirubin AST ALT Alkaline Phosphatase Total Protein Albumin 07/24/24 07/24/24 05:24 05:26 WBC 12.2 H RBC 4.40 L Hgb 12.9 L Hct 44.0 MCV 100.0 H MCH 29.3 MCHC 29.3 L RDW 15.6 Plt Count 173 MPV 10.4 Immature Gran % (Auto) 0.3 Neut % (Auto) 79.2 H Lymph % (Auto) 7.6 L [place] % (Auto) 4.9 Eos % (Auto) 7.8 H Baso % (Auto) 0.2 Lymph # (Auto) 0.9 L [place] # (Auto) 0.6 Eos # (Auto) 1.0 H Baso # (Auto) 0.0 Abs Immat Gran (auto) 0.04 H Absolute Neuts (auto) 9.7 H Absolute Nucleated RBC 0.000 Nucleated RBC % (auto) 0.0 VBG pH 7.32 VBG pCO2 73 VBG pO2 40 VBG HCO3 38 H VBG O2 Saturation 50.0 VBG Base Excess 9.4 Sodium 142 Potassium 4.5 D Chloride 102 Carbon Dioxide 34 H Anion Gap 11 L BUN 16 Creatinine 0.89 Estim Creat Clear Calc 107.1 Estimated GFR > 60 POC Glucose Random Glucose 103 Calcium 8.8 Phosphorus 4.2 Magnesium 2.5 Total Bilirubin 0.7 AST 17 ALT 14 Alkaline Phosphatase 61 Total Protein 6.9 Albumin 4.2 Microbiology Microbiology Results: Microbiology 07/21/24 18:11 Blood - Venous Blood Culture - Final Enterococcus faecalis 07/21/24 18:11 Blood - Venous Blood Culture - Preliminary No growth after 48 hours. Progress Note: A&P Assessment and plan (1) Bacteremia due to Enterococcus: Status: Acute (2) Streptococcal bacteremia: Status: Acute (3) Aspiration into airway: Status: Acute (4) Acute respiratory failure with hypoxia and hypercarbia: Status: Acute Plan Assessment: 63-year-old gentleman with underlying TBI, seizure disorder, COPD admitted 07/08/2024 with acute hypoxic and hypercapnic respiratory failure likely secondary to pulmonary aspiration requiring intubation and ventilatory support Plan: Neuro: No acute issues. Underlying TBI and seizure disorder. Continue lithium and topiramate. Cardiac: No acute issues. Pulmonary: Acute hypoxic and hypercapnic respiratory failure requiring ventilatory support, likely secondary to pulmonary aspiration. Underlying COPD. Extubated 07/23/2024. Continue nocturnal BiPAP. Renal: No acute issues. Endo: No acute issues. Underlying diabetes mellitus. GI: No acute issues. ID: Streptococcal/Enterococcus bacteremia. Allergic reaction previously to ampicillin and vancomycin. Continue linezolid. Heme/Onc: No acute issues. Psych: No acute issues. Miscellaneous: No acute issues. Prophylaxis: Lovenox Diet: Pureed/honey thick Quality Stroke Does the patient have a stroke diagnosis?: No VTE Prior VTE?: No VTE Risk Level:: Medical - moderate - high VTE Device Contraindication: N/A - Device Ordered VTE Drug Contraindication: N/A - Med Ordered
[2024-07-24] MEDS: Lithium Carbonate 300 MG CAPSULE PO ×2 (11:14→21:26)
[2024-07-24] MEDS: Topiramate 25 MG TABLET 50 MG PO ×2 (11:14→21:27)
[2024-07-24] MEDS: Lithium Carbonate 300 MG TABLET 150 MG PO ×2 (11:14→21:26)
[2024-07-24] MEDS: Linezolid/D5W 600 MG/300 ML PIGGYBACK 300 MG IV ×2 (11:17→23:29)
[2024-07-24 11:53] LABS: Glucose, Whole Blood 187 mg/dL (60-115)
[2024-07-24] MEDS: Insulin Lispro 100 UNIT/ML 3 ML VIAL SUBCUT (12:30)
[2024-07-24 14:09] LABS: Venous Blood Gas Refer to POC result
--- NOTE | 2024-07-24 15:26 | MHC.SL.SWA ---
Risk of Aspiration Due to: recent extubation hx aspiration PNA weak cough Dysphasia Diet Status: Liquid Consistency and Strategies for Safe Swallow: Liquid Intake Recommendation: thin via tsp ONLY *hospitalist to make call on thickened liquids via self-administration; see note below Solid Food Consistency: Dietary Recommendations: Pureed (NDD1) Additional Modifications to Solid Foods: Recommend NDD1 (purees) with HONEY THICK liquids by tsp, pills crushed in puree. Patient demonstrates high level of impulsivity, may try to chug liquids if given cup, take too large bites of food, and talk while eating (all aspiration risks). Supervision is required at all meals. Oral Medication Intake: Crushed with Puree Please contact the pharmacy regarding appropriate crushable or liquid drug formulations that are available whenever modified delivery is recommended. Compensatory Strategies and Precautions to be Taken for Safe Swallow: Supervision While Eating and Drinking for Safe Swallow: Total Assistance (1:1) w/ liquids, 1-1 supervision w/ solids Swallowing Recommended Treatments: sitting upright during and after PO for 30 min small bites and sips slow rate Recommendation for Speech: Inpatient Speech Therapy Comment: Recommend PUREE solids and pills crushed in puree. Ice chips w/ supervision ok. Thin water via teaspoon w/ 1-1 assist by nursing staff ok. Pt declined all trials of thickened liquids w/ GEODETIC ADVISOR. He was most recently recommended nectar thick by GEODETIC ADVISOR here prior to d/c last week which was continued at [facility]. D/t impulsivity thin water via cup/self-administration NOT recommended. Hospitalists and nursing notified of GEODETIC ADVISOR recommendations. Considering limited trials w/ PO, risk of dehydration, past GEODETIC ADVISOR recommendations, and concern for aspiration PNA, hospitalist may make call RE: thickened liquids for him to self-administer. GEODETIC ADVISOR to continue to follow. MBSS may be warranted d/t repeated concern for pulmonary aspiration to rule in/out silent aspiration. Lobby Porter Clinican/Clinical Fellow: No Supervisory Statement: I have reviewed and agree with the student/clinical fellow's documentation: N/A Speech Language Pathologist: Claire Corbett M.A., CCC-GEODETIC ADVISOR
[2024-07-24 16:09] LABS: Glucose, Whole Blood 132 mg/dL (60-115)
[2024-07-24 20:51] LABS: Glucose, Whole Blood 105 mg/dL (60-115)
[2024-07-24] MEDS: QUEtiapine Fumarate 50 MG TABLET PO (21:26)
[2024-07-24] MEDS: Enoxaparin Sodium 40 MG/0.4 ML SYRINGE SUBCUT (21:27)
[2024-07-25 03:47] VITALS: BP 108/55; PULSE 60; RESP 22; TEMP 36.3; O2SAT 98
[2024-07-25 07:06] LABS: Venous Blood Gas Refer to POC result
[2024-07-25 07:06] LABS: VBG HCO3 41 mmol/L (22-26); VBG pCO2 79 mmHg; VBG pH 7.33 (7.32-7.43); VBG pO2 45 mmHg
[2024-07-25 07:35] LABS: Albumin Level 3.8 g/dL (3.5-5.0); Anion Gap 11 (12-20); Blood Urea Nitrogen 17 mg/dL (9-16); Carbon Dioxide 35 mmol/L (22-29); Chloride 101 mmol/L (96-108); Creatinine Clr Calc Pharmacy 118.3; Estimated Glomerular Filt Rate > 60; Glucose Random 115 mg/dL (60-115); Magnesium 2.5 mg/dL (1.6-2.6); Phosphorus 3.4 mg/dL (2.7-4.5); Potassium 4.5 mmol/L (3.3-5.1); Sodium 142 mmol/L (135-145)
[2024-07-25 07:46] LABS: MANUAL DIFF FLAG NO
[2024-07-25 07:52] LABS: Basophils Percent Auto 0.2 % (0-2); Eosinophils Absolute Auto 0.9 X10*3/uL (0.0-0.4); Eosinophils Percent Auto 8.9 % (0-4); Hematocrit 45.8 % (42.0-52.0); Hemoglobin 13.2 g/dl (14.0-18.0); Imm Gran Abs Auto 0.05 X10*3/uL (0.00-0.03); Imm Gran Pct Auto 0.5 % (0.0-0.4); Lymphocytes Absolute Auto 0.6 X10*3/uL (1.2-4.9); Lymphocytes Percent Auto 6.3 % (20-40); Mean Corpuscular HGB Conc 28.8 g/dl (31.0-36.0); Mean Corpuscular Hemoglobin 29.3 pg (27.0-33.0); Mean Corpuscular Volume 101.8 fL (80.0-98.0); Mean Platelet Volume 11.1 fL (9.4-12.4); Monocytes Absolute Auto 0.5 X10*3/uL (0.1-1.2); Monocytes Percent Auto 5.3 % (2-11); Neutrophils Percent Auto 78.8 % (45-73); Platelet Count 146 X10*3/uL (160-400); Red Cell Distribution Width 15.2 % (11.0-16.0); White Blood Count 10.1 X10*3/uL (4.8-10.8)
[2024-07-25 08:00] VITALS: BP 115/58; PULSE 66; RESP 20; TEMP 37; O2SAT 99
[2024-07-25 08:22] LABS: Glucose, Whole Blood 138 mg/dL (60-115)
[2024-07-25] MEDS: Lithium Carbonate 300 MG CAPSULE PO ×2 (08:59→20:51)
[2024-07-25] MEDS: Topiramate 25 MG TABLET 50 MG PO ×2 (08:59→20:50)
[2024-07-25] MEDS: QUEtiapine Fumarate 50 MG TABLET PO ×2 (08:59→20:51)
[2024-07-25] MEDS: Lithium Carbonate 300 MG TABLET 150 MG PO ×2 (08:59→20:50)
[2024-07-25] MEDS: Linezolid/D5W 600 MG/300 ML PIGGYBACK 300 MG IV ×2 (11:33→23:36)
[2024-07-25 12:00] VITALS: BP 129/64; PULSE 78; RESP 20; TEMP 36.9; O2SAT 97
[2024-07-25 13:01] LABS: Glucose, Whole Blood 205 mg/dL (60-115)
--- NOTE | 2024-07-25 15:07 | HO.PM.IMPN ---
Subjective Subjective Date of Service: 07/25/24 Interval History: No acute issues overnight remains pleasantly confused Review of Systems Unable to obtain clearly secondary confusion Physical Exam Vital Signs: Vital Signs: Last Vital Signs Temp 98.5 F 07/25/24 12:00 Pulse 78 07/25/24 12:00 Resp 20 07/25/24 12:00 BP 129/64 07/25/24 12:00 Pulse Ox 97 07/25/24 12:00 O2 Del Method Nasal Cannula 07/25/24 12:00 O2 Flow Rate 4 07/25/24 12:00 FiO2 30 07/23/24 13:00 BMI result Body Mass Index 37.2 Const: Other: Somnolent but arousable Resp: Other: Clear to auscultation no rales rhonchi or wheezes Cardio: Other: No S4; positive S1-S2; no S3 murmurs rubs or gallops GI: Other: Soft nontender nondistended normoactive bowel sounds Extrem: Other: No edema bilaterally Objective Data Active Medications Acetaminophen (Acetaminophen Oral Liquid 650 Mg/20.3 Ml Solution) 650 mg PO Q6H PRN PRN Reason: Fever >101 Last Admin: 07/22/24 13:23 Dose: 650 mg Documented By: EVONNE Enoxaparin Sodium (Enoxaparin Sodium 40 Mg/0.4 Ml Syringe) 40 mg SUBCUT Q24H [facility] Last Admin: 07/24/24 21:27 Dose: 40 mg Documented By: VANNESSA Linezolid (Zyvox/D5w) 600 mg in 300 mls @ 300 mls/hr IV Q12H [facility] Last Infusion: 07/25/24 13:43 Dose: Infused Documented By: GABY Insulin Human Lispro (Insulin Lispro 100 Unit/Ml 3 Ml Vial) 0 unit SUBCUT QIDACHS [facility]; Protocol Last Admin: 07/25/24 13:34 Dose: Not Given Documented By: GABY Non-Admin Reason: Patient Refused [place] Carbonate ([place] Carbonate 300 Mg Tablet) 150 mg PO BID [facility] Last Admin: 07/25/24 08:59 Dose: 150 mg Documented By: GABY [place] Carbonate ([place] Carbonate 300 Mg Capsule) 300 mg PO BID [facility] Last Admin: 07/25/24 08:59 Dose: 300 mg Documented By: GABY Quetiapine Fumarate (Quetiapine Fumarate 50 Mg Tablet) 50 mg PO BID [facility] Last Admin: 07/25/24 08:59 Dose: 50 mg Documented By: GABY Topiramate (Topiramate 25 Mg Tablet) 50 mg PO BID [facility] Last Admin: 07/25/24 08:59 Dose: 50 mg Documented By: GABY Labs 07/25/24 06:53 07/25/24 06:53 Labs: Laboratory Results - last 24 hr 07/24/24 07/24/24 07/25/24 16:05 20:38 06:53 MCV 101.8 H MCH 29.3 MCHC 28.8 L RDW 15.2 Plt Count 146 L MPV 11.1 Immature Gran % (Auto) 0.5 H Neut % (Auto) 78.8 H Lymph % (Auto) 6.3 L [place] % (Auto) 5.3 Eos % (Auto) 8.9 H Baso % (Auto) 0.2 Lymph # (Auto) 0.6 L [place] # (Auto) 0.5 Eos # (Auto) 0.9 H Baso # (Auto) 0.0 Abs Immat Gran (auto) 0.05 H Absolute Neuts (auto) 8.0 Absolute Nucleated RBC 0.000 Nucleated RBC % (auto) 0.0 VBG pH VBG pCO2 VBG pO2 VBG HCO3 VBG O2 Saturation VBG Base Excess Anion Gap 11 L Estim Creat Clear Calc 118.3 Estimated GFR > 60 POC Glucose 132 H 105 Random Glucose 115 Calcium 9.0 Phosphorus 3.4 Magnesium 2.5 Albumin 3.8 07/25/24 07/25/24 07/25/24 07:02 07:43 12:55 MCV MCH MCHC RDW Plt Count MPV Immature Gran % (Auto) Neut % (Auto) Lymph % (Auto) [place] % (Auto) Eos % (Auto) Baso % (Auto) Lymph # (Auto) [place] # (Auto) Eos # (Auto) Baso # (Auto) Abs Immat Gran (auto) Absolute Neuts (auto) Absolute Nucleated RBC Nucleated RBC % (auto) VBG pH 7.33 VBG pCO2 79 VBG pO2 45 VBG HCO3 41 H VBG O2 Saturation 63.0 VBG Base Excess 12.0 Anion Gap Estim Creat Clear Calc Estimated GFR POC Glucose 138 H 205 H Random Glucose Calcium Phosphorus Magnesium Albumin Assessment and Plan (1) Acute respiratory failure with hypoxia and hypercarbia: Status: Acute (2) Bacteremia due to Enterococcus: Status: Acute (3) Diabetes mellitus: Status: Acute Plan Assessment: 63-year-old gentleman with underlying TBI, seizure disorder, COPD admitted 07/08/2024 with acute hypoxic and hypercapnic respiratory failure likely secondary to pulmonary aspiration requiring intubation and ventilatory support likely secondary to pulmonary aspiration. Blood cultures with Enterococcus bacteremia 1. Aspiration pneumonia with Enterococcus bacteremia -linezolid (1) -ID consult in a.m. -repeat blood cultures in a.m. 2. Acute hypoxic/hypercapnic respiratory failure likely secondary to aspiration -extremely noncompliant with therapies -aspiration treatment as per 1. -titrate O2 to maintain sats greater than or equal to 92% 3. Schizoaffective disorder/bipolar type -stable and well compensated at this time -continue Clozaril/lithium at current dosing 4. Diabetes type 2 requiring insulin -acceptable control on current therapies -adjust as indicated Lovenox DNR DNI Patient will require ongoing hospitalization for IV antibiotics to treat E coli bacteremia . Quality Stroke Does the patient have a stroke diagnosis?: No VTE Prior VTE?: No VTE Risk Level:: Medical - moderate - high VTE Device Contraindication: N/A - Device Ordered VTE Drug Contraindication: N/A - Med Ordered
[2024-07-25 16:51] VITALS: BP 134/73; PULSE 75; RESP 18; TEMP 36.3; O2SAT 99
[2024-07-25 16:52] LABS: Glucose, Whole Blood 116 mg/dL (60-115)
[2024-07-25 19:53] VITALS: BP 143/69; PULSE 78; RESP 24; TEMP 36.4; O2SAT 93
[2024-07-25] MEDS: Enoxaparin Sodium 40 MG/0.4 ML SYRINGE SUBCUT (20:51)
[2024-07-25 21:17] LABS: Glucose, Whole Blood 124 mg/dL (60-115)
[2024-07-25 23:52] VITALS: BP 126/58; PULSE 78; RESP 22; TEMP 36.5; O2SAT 96
[2024-07-26 03:40] VITALS: BP 136/77; PULSE 82; RESP 20; TEMP 36.6; O2SAT 93
[2024-07-26 07:21] LABS: Glucose, Whole Blood 130 mg/dL (60-115)
[2024-07-26 07:26] VITALS: BP 124/64; PULSE 74; RESP 20; TEMP 36.6; O2SAT 94
[2024-07-26] MEDS: Lithium Carbonate 300 MG TABLET 150 MG PO ×2 (07:57→22:10)
[2024-07-26] MEDS: Topiramate 25 MG TABLET 50 MG PO ×2 (07:58→22:11)
[2024-07-26] MEDS: Lithium Carbonate 300 MG CAPSULE PO ×2 (07:58→22:11)
[2024-07-26] MEDS: QUEtiapine Fumarate 50 MG TABLET PO ×2 (07:58→22:11)
--- NOTE | 2024-07-26 09:48 | P.CDIM_ITS ---
PROVIDER RESPONSE TEXT: To clarify, the appropriate diagnosis supported by the clinical indicators: Acute non-cardiac pulmonary edema QUERY TEXT: PHYSICIAN'S DOCUMENTATION REQUEST Date of Query: 07/26/2024 08:09 AM EDT Patient Name: Orlando Glibert Admit Date: 07/22/2024 Dear Hilario Blank DO, A review of the medical record indicates additional documentation may be needed. Please review below and update the documentation accordingly. Clinical Indicators: H&P 07/21/24 - Chest X-ray consistent with aspiration with worsening airspace disease in the right upp er lobe also mild degree of pulmonary edema. Arrived today with worsening shortness of breath and generalized malaise. Echo from 07/09/24 showed normal LV systolic and diastolic function. Will diurese with Lasix Based on the above, could you please provide, in the Progress Notes, further specificity regarding th e acuity and etiology of the pulmonary edema? Acute non-cardiac pulmonary edema Acute non-cardiac pulmonary edema due to other cause Please specify other cause Acute pulmonary edema due to heart failure Please further specify the type and acuity Chronic pulmonary edema due to non-cardiac etiology Please specify cause Other (explain) Clinically unable to determine (explain) Thank you, Jacqui Mckeon, CCS, CDIS Use of terms such as suspected, likely, concern for, or probable (associated with a specific diagnosi s that is being evaluated, monitored, or treated as if it exists) are acceptable and can be coded in the inpatient se tting, when documented at the time of discharge. Please use your independent medical judgment in providing your response. THIS QUERY IS PART OF THE PERMANENT MEDICAL RECORD
--- NOTE | 2024-07-26 11:03 | MHC.CM.PN ---
Per ROUNDS discussion, Patient is not yet medically cleared for dc (still on 4LO2, checking cultures); returning to LTC is the goal and MD is invoking the HCP. CM will continue to follow.
[2024-07-26 11:28] LABS: Glucose, Whole Blood 153 mg/dL (60-115)
[2024-07-26] MEDS: Insulin Lispro 100 UNIT/ML 3 ML VIAL SUBCUT ×2 (11:34→22:24)
[2024-07-26] MEDS: Linezolid/D5W 600 MG/300 ML PIGGYBACK 300 MG IV ×2 (11:34→22:11)
[2024-07-26 11:43] VITALS: BP 154/72; PULSE 71; RESP 22; TEMP 36.5; O2SAT 97
--- NOTE | 2024-07-26 12:16 | MHC.CLN ---
F/U PT TRANSFERRED TO MEDICAL FLOOR FROM ICU DIET ADVANCED TO REGULAR PUREED WITH HT LIQ PO 100% X3 MEALS FRAGILE SKIN NOTED RD TO FOLLOW WEEKLY
[2024-07-26 12:28] LABS: Venous Blood Gas Refer to POC result
[2024-07-26 12:31] LABS: VBG Base Excess 12.5 mmol/L; VBG HCO3 41 mmol/L (22-26); VBG pCO2 74 mmHg; VBG pH 7.35 (7.32-7.43); VBG pO2 112 mmHg
--- NOTE | 2024-07-26 15:13 | HO.PM.IMPN ---
Subjective Subjective Date of Service: 07/26/24 Interval History: No acute issues overnight. More lethargic. VBG CO2 stable at 70s Review of Systems Unable to obtain clearly secondary confusion Physical Exam Vital Signs: Vital Signs: Last Vital Signs Temp 97.7 F 07/26/24 11:43 Pulse 71 07/26/24 11:43 Resp 22 H 07/26/24 11:43 BP 154/72 H 07/26/24 11:43 Pulse Ox 97 07/26/24 11:43 O2 Del Method Nasal Cannula 07/26/24 11:43 O2 Flow Rate 4 07/26/24 11:43 FiO2 30 07/23/24 13:00 BMI result Body Mass Index 37.2 Const: Other: Somnolent but arousable Resp: Other: Clear to auscultation no rales rhonchi or wheezes Cardio: Other: No S4; positive S1-S2; no S3 murmurs rubs or gallops GI: Other: Soft nontender nondistended normoactive bowel sounds Extrem: Other: No edema bilaterally Objective Data Active Medications Acetaminophen (Acetaminophen Oral Liquid 650 Mg/20.3 Ml Solution) 650 mg PO Q6H PRN PRN Reason: Fever >101 Last Admin: 07/22/24 13:23 Dose: 650 mg Documented By: EVONNE Enoxaparin Sodium (Enoxaparin Sodium 40 Mg/0.4 Ml Syringe) 40 mg SUBCUT Q24H [facility] Last Admin: 07/25/24 20:51 Dose: 40 mg Documented By: VANNESSA Linezolid (Zyvox/D5w) 600 mg in 300 mls @ 300 mls/hr IV Q12H [facility] Last Infusion: 07/26/24 12:54 Dose: Infused Documented By: LYDIA Insulin Human Lispro (Insulin Lispro 100 Unit/Ml 3 Ml Vial) 0 unit SUBCUT QIDACHS [facility]; Protocol Last Admin: 07/26/24 11:34 Dose: 2 unit Documented By: LYDIA Spray Carbonate (Spray Carbonate 300 Mg Tablet) 150 mg PO BID [facility] Last Admin: 07/26/24 07:57 Dose: 150 mg Documented By: LYDIA Spray Carbonate (Spray Carbonate 300 Mg Capsule) 300 mg PO BID [facility] Last Admin: 07/26/24 07:58 Dose: 300 mg Documented By: LYDIA Quetiapine Fumarate (Quetiapine Fumarate 50 Mg Tablet) 50 mg PO BID [facility] Last Admin: 07/26/24 07:58 Dose: 50 mg Documented By: LYDIA Topiramate (Topiramate 25 Mg Tablet) 50 mg PO BID [facility] Last Admin: 07/26/24 07:58 Dose: 50 mg Documented By: LYDIA Labs 07/25/24 06:53 07/25/24 06:53 Labs: Laboratory Results - last 24 hr 07/25/24 07/25/24 07/26/24 16:46 21:05 07:14 VBG pH VBG pCO2 VBG pO2 VBG HCO3 VBG O2 Saturation VBG Base Excess POC Glucose 116 H 124 H 130 H 07/26/24 07/26/24 11:24 12:27 VBG pH 7.35 VBG pCO2 74 VBG pO2 112 VBG HCO3 41 H VBG O2 Saturation 99.0 VBG Base Excess 12.5 POC Glucose 153 H Assessment and Plan (1) Acute respiratory failure with hypoxia and hypercarbia: Status: Acute (2) Streptococcal bacteremia: Status: Acute Plan Assessment: 63-year-old gentleman with underlying TBI, seizure disorder, COPD admitted 07/08/2024 with acute hypoxic and hypercapnic respiratory failure likely secondary to pulmonary aspiration requiring intubation and ventilatory support likely secondary to pulmonary aspiration. Blood cultures with Enterococcus bacteremia 1. Aspiration pneumonia with Enterococcus bacteremia -linezolid (2) -ID consult in a.m. -repeat blood cultures in a.m. 2. Acute hypoxic/hypercapnic respiratory failure likely secondary to aspiration -extremely noncompliant with therapies.. Attempt BiPAP at HS -aspiration treatment as per 1. -titrate O2 to maintain sats greater than or equal to 92% 3. Schizoaffective disorder/bipolar type -stable and well compensated at this time -continue Clozaril/lithium at current dosing 4. Diabetes type 2 requiring insulin -acceptable control on current therapies -adjust as indicated Lovenox DNR DNI Patient will require ongoing hospitalization for IV antibiotics to treat E coli bacteremia . Quality Stroke Does the patient have a stroke diagnosis?: No VTE Prior VTE?: No VTE Risk Level:: Medical - moderate - high VTE Device Contraindication: N/A - Device Ordered VTE Drug Contraindication: N/A - Med Ordered
[2024-07-26 15:28] VITALS: BP 118/58; PULSE 68; RESP 18; TEMP 36.6; O2SAT 96
--- NOTE | 2024-07-26 15:38 | MHC.SLORD ---
Speech Language Pathology Order Status: SENIOR MECHANICAL PROJECT ENGINEER attempted dysphagia treatment today, pt very fatigued. O2 sats 96 per RESIDENTIAL PROGRAM WORKER report. RN and MD consulted. Recc diet as ordered, ice chips ok, aspiration precautions inpatient. SENIOR MECHANICAL PROJECT ENGINEER tx upon d/c indicated, though pt has hx of non-compliance and thus recurrent aspiration PNA.
[2024-07-26 16:08] LABS: Glucose, Whole Blood 126 mg/dL (60-115)
[2024-07-26 19:33] VITALS: BP 130/63; PULSE 73; RESP 18; TEMP 36.8; O2SAT 98
[2024-07-26 21:01] LABS: Glucose, Whole Blood 179 mg/dL (60-115)
[2024-07-26] MEDS: Enoxaparin Sodium 40 MG/0.4 ML SYRINGE SUBCUT (22:11)
[2024-07-26 23:36] VITALS: BP 136/71; PULSE 93; RESP 18; TEMP 36.7; O2SAT 96
[2024-07-27 03:58] VITALS: BP 130/61; PULSE 80; RESP 18; TEMP 36.9; O2SAT 95
[2024-07-27 06:33] LABS: MANUAL DIFF FLAG NO
[2024-07-27 06:43] LABS: Venous Blood Gas Refer to POC result
[2024-07-27 06:46] LABS: VBG Base Excess 13.5 mmol/L; VBG HCO3 44 mmol/L (22-26); VBG pCO2 88 mmHg; VBG pO2 74 mmHg
[2024-07-27 06:51] LABS: Basophils Percent Auto 0.2 % (0-2); Eosinophils Absolute Auto 0.5 X10*3/uL (0.0-0.4); Eosinophils Percent Auto 5.4 % (0-4); Hematocrit 47.5 % (42.0-52.0); Hemoglobin 13.5 g/dl (14.0-18.0); Imm Gran Abs Auto 0.03 X10*3/uL (0.00-0.03); Imm Gran Pct Auto 0.3 % (0.0-0.4); Lymphocytes Percent Auto 10.7 % (20-40); Mean Corpuscular HGB Conc 28.4 g/dl (31.0-36.0); Mean Corpuscular Hemoglobin 29.5 pg (27.0-33.0); Mean Corpuscular Volume 103.7 fL (80.0-98.0); Mean Platelet Volume 10.9 fL (9.4-12.4); Monocytes Absolute Auto 0.5 X10*3/uL (0.1-1.2); Monocytes Percent Auto 5.4 % (2-11); Neutrophils Absolute Auto 7.1 x10*3/uL (2.0-8.3); Platelet Count 137 X10*3/uL (160-400); Red Blood Count 4.58 X10*6/uL (4.60-5.80); Red Cell Distribution Width 14.9 % (11.0-16.0); White Blood Count 9.1 X10*3/uL (4.8-10.8)
[2024-07-27 07:14] LABS: Alanine Aminotransferase 14 U/L (0-40); Albumin Level 3.8 g/dL (3.5-5.0); Alkaline Phosphatase 67 U/L (39-117); Aspartate Amino Transferase 17 U/L (5-37); Bilirubin Total 0.6 mg/dL (0.0-1.0); Blood Urea Nitrogen 13 mg/dL (9-16); Creatinine Clr Calc Pharmacy 135.2; Estimated Glomerular Filt Rate > 60; Glucose Fasting 143 mg/dL (60-99); Total Protein 6.9 g/dL (6.5-8.0)
[2024-07-27 07:21] LABS: Anion Gap 11 (12-20); Carbon Dioxide 38 mmol/L (22-29); Chloride 99 mmol/L (96-108); Potassium 4.8 mmol/L (3.3-5.1); Sodium 143 mmol/L (135-145)
[2024-07-27 07:25] LABS: Glucose, Whole Blood 139 mg/dL (60-115)
[2024-07-27 08:00] VITALS: BP 126/54; PULSE 76; RESP 18; TEMP 36.3; O2SAT 92
--- NOTE | 2024-07-27 08:15 | PC.RT ---
pt refuses yo wear cpap and rips it off when it is applied. He also does this with a nasal cannula. Will dc the cpap as it has been more than 3 days without wearing t per policy.
[2024-07-27] MEDS: QUEtiapine Fumarate 50 MG TABLET PO ×2 (09:25→20:32)
[2024-07-27] MEDS: Topiramate 25 MG TABLET 50 MG PO ×2 (09:26→20:32)
[2024-07-27] MEDS: Lithium Carbonate 300 MG CAPSULE PO ×2 (09:26→20:32)
[2024-07-27] MEDS: Lithium Carbonate 300 MG TABLET 150 MG PO ×2 (09:27→20:32)
--- NOTE | 2024-07-27 10:50 | MHC.CM.PN ---
Addendum entered by Sherri Ace 07/27/24 12:10: Per MD, Patient is now NOT medically cleared for dc. PT Eval was done. CM will follow further, once medically cleared for dc. Original Note: Per ROUNDS discussion, Patient is now medically cleared for dc. CM will need to attempt [facility] auth and has ordered PT Eval toward obtaining auth. CM awaits PT Eval and will then begin auth process. CM will follow.
--- NOTE | 2024-07-27 10:55 | MHC.SL.SWA ---
Addendum entered and electronically signed by BRYAN Gonzales 07/27/24 14:33: DEFLECTOR OPERATOR checked in w/ RN in afternoon. Per RN, pt's status did not change and continuous to be not appropriate for PO. Continue NPO recommended w/ re-eval by DEFLECTOR OPERATOR tmw AM. Original Note: Risk of Aspiration Due to: lethargic state/mental status Dysphasia Diet Status: NPO Liquid Consistency and Strategies for Safe Swallow: Liquid Intake Recommendation: NPO Solid Food Consistency: Dietary Recommendations: NPO Oral Medication Intake: NPO Please contact the pharmacy regarding appropriate crushable or liquid drug formulations that are available whenever modified delivery is recommended. Supervision While Eating and Drinking for Safe Swallow: PO with DEFLECTOR OPERATOR Recommendation for Speech: Inpatient Speech Therapy Comment: Recommend NPO. Pt seen w/ nursing and DEFLECTOR OPERATOR this morning; given one small bite of pudding that required maximum cueing and multiple swallows to clear. Nursing reports pt sounded like he was drowning when taking pills in puree this morning. Recommend NPO and re-evaluation w/ DEFLECTOR OPERATOR. MD notified by RN. RN to [place] DEFLECTOR OPERATOR when/if pt becomes appropriate for re-assessment later in day. DEFLECTOR OPERATOR to continue to follow. MBSS may be warranted d/t repeated concern for pulmonary aspiration to rule in/out silent aspiration. Frequency/Duration: daily M-F Poker Room Manager Clinican/Clinical Fellow: No Supervisory Statement: I have reviewed and agree with the student/clinical fellow's documentation: N/A Speech Language Pathologist: Claire Corbett M.A., CCC-DEFLECTOR OPERATOR
[2024-07-27 11:33] LABS: Venous Blood Gas Refer to POC result
[2024-07-27 11:34] LABS: VBG Base Excess 15.3 mmol/L; VBG HCO3 45 mmol/L (22-26); VBG pCO2 78 mmHg; VBG pH 7.36 (7.32-7.43); VBG pO2 57 mmHg
[2024-07-27 12:00] VITALS: BP 130/59; PULSE 80; RESP 18; TEMP 36.8; O2SAT 94
[2024-07-27 12:17] LABS: Glucose, Whole Blood 139 mg/dL (60-115)
[2024-07-27] MEDS: Linezolid/D5W 600 MG/300 ML PIGGYBACK 300 MG IV (12:24)
--- NOTE | 2024-07-27 14:51 | P.CNID_ITS ---
History of Present Illness Data of Consult Service Date: 07/27/24 Requesting physician: Hilario Blank Primary Care Provider: Hilario Blank DO HPI Reason for consult: recurrent enterococcus faecalis bacteremia He presents shortness of breath [facility]. I had seen him earlier in month and had enterococcus as well as strep pneumonia and aerococcus bactermia on 07/08. He cleared bacteremia and was discharged on po Augmentin for 14 days on 07/15. He represents and has enterococcus bacteremia again on 07/21. Review of Systems 2 Review of Systems: Yes Unobtainable due to mental status PMFSH Past Medical History Medical History Diabetes mellitus Bacteremia COPD (chronic obstructive pulmonary disease) Pneumonia Respiratory failure with hypoxia and hypercapnia Acute exacerbation of chronic obstructive pulmonary disease (COPD) Pulmonary edema Encephalopathy Non-ST elevation [place] (NSTEMI) Epilepsy Acute respiratory failure with hypoxia and hypercarbia Aspiration pneumonia Leukocytosis COPD (chronic obstructive pulmonary disease) TBI (traumatic brain injury) Family History Family history: reviewed and not pertinent Social History Social History Household Members: None Housing: Senior Living Do you presently have visiting nurse or other home services: No Comment: horticulturalist with patient to ICU Patient Tobacco Use Status: Tobacco use Unknown Tobacco use type: Cigarette Cigarettes Per Day: 8 e-Cigarette/Vaping Use: Never Used Second Hand Smoke Exposure: No Currently Displaying Signs/Symptoms of Drug Intoxication Withdrawal: No Advance Directives: Yes Advance Directives on File: Yes Advance Directives Date on File: 03/15/24 service: No Meds Allergies Allergy/AdvReac Type Severity Reaction Status Date / Time vancomycin Allergy Severe Redness of Verified 07/21/24 17:30 Skin ampicillin [From Unasyn] AdvReac Intermediate Rash Verified 07/22/24 12:29 sulbactam [From Unasyn] AdvReac Intermediate Rash Verified 07/22/24 12:29 Active Medications: Current Medications Acetaminophen (Acetaminophen Oral Liquid 650 Mg/20.3 Ml Solution) 650 mg PO Q6H PRN PRN Reason: Fever >101 Last Admin: 07/22/24 13:23 Dose: 650 mg Enoxaparin Sodium (Enoxaparin Sodium 40 Mg/0.4 Ml Syringe) 40 mg SUBCUT Q24H [facility] Last Admin: 07/26/24 22:11 Dose: 40 mg Linezolid (Zyvox/D5w) 600 mg in 300 mls @ 300 mls/hr IV Q12H [facility] Last Admin: 07/27/24 12:24 Dose: 300 mls/hr Insulin Human Lispro (Insulin Lispro 100 Unit/Ml 3 Ml Vial) 0 unit SUBCUT QIDACHS [facility]; Protocol Last Admin: 07/27/24 12:19 Dose: Not Given Pickrell Carbonate (Pickrell Carbonate 300 Mg Tablet) 150 mg PO BID [facility] Last Admin: 07/27/24 09:27 Dose: 150 mg Pickrell Carbonate (Pickrell Carbonate 300 Mg Capsule) 300 mg PO BID [facility] Last Admin: 07/27/24 09:26 Dose: 300 mg Quetiapine Fumarate (Quetiapine Fumarate 50 Mg Tablet) 50 mg PO BID [facility] Last Admin: 07/27/24 09:25 Dose: 50 mg Topiramate (Topiramate 25 Mg Tablet) 50 mg PO BID [facility] Last Admin: 07/27/24 09:26 Dose: 50 mg Home Medications ?Medication ?Instructions ?Recorded ?Confirmed ?Last Taken ?Type acetaminophen 325 mg tablet 650 mg PO Q6H PRN Fever Or Pain 03/15/24 07/21/24 Unknown History albuterol sulfate 90 mcg/actuation 2 puff inhalation Q6H PRN 03/15/24 07/21/24 Unknown History aerosol inhaler Bronchospasm/SOB aspirin 81 mg tablet,delayed 81 mg PO DAILY 03/15/24 07/21/24 Unknown History release atorvastatin 10 mg tablet 10 mg PO BEDTIME 03/15/24 07/21/24 Unknown History bisacodyl 10 mg rectal suppository 10 mg [place] DAILY PRN constipation 03/15/24 07/21/24 Unknown History fexofenadine 180 mg tablet 180 mg PO DAILY 03/15/24 07/21/24 Unknown History fluticasone furoate 100 1 inh inhalation DAILY 03/15/24 07/21/24 Unknown History mcg-vilanterol 25 mcg/dose inhalation powder (Breo Ellipta) guaifenesin 200 mg/5 mL oral liquid 400 mg PO Q4H PRN Congestion 03/15/24 07/21/24 Unknown History lithium carbonate 150 mg capsule 150 mg PO BID 03/15/24 07/21/24 Unknown History lithium carbonate 300 mg capsule 300 mg PO BID 03/15/24 07/21/24 Unknown History melatonin 3 mg tablet 9 mg PO BEDTIME 03/15/24 07/21/24 Unknown History propranolol 10 mg tablet 5 mg PO BID 03/15/24 07/21/24 Unknown History sennosides 8.6 mg-docusate sodium 2 tab-cap PO BID 03/15/24 07/21/24 Unknown History 50 mg tablet (Senna with Docusate Sodium) sodium phosphates 19 gram-7 118 ml [place] DAILY PRN constipation 03/15/24 07/21/24 Unknown History gram/118 mL enema (Fleet Enema) tamsulosin 0.4 mg capsule 0.4 mg PO BEDTIME 03/15/24 07/21/24 Unknown History tiotropium bromide 2.5 2 puff inhalation DAILY 03/15/24 07/21/24 Unknown History mcg/actuation mist for inhalation (Spiriva Respimat) topiramate 50 mg tablet 50 mg PO BID 03/15/24 07/21/24 Unknown History trazodone 50 mg tablet 50 mg PO BEDTIME 03/15/24 07/21/24 Unknown History fluoride (sodium) 1.1 % dental gel 1 appl dental DAILY 07/08/24 07/21/24 Unknown History (PreviDent) glucagon 1 mg solution for 1 mg subcut Q15M PRN Diabeted 07/08/24 07/21/24 Unknown History injection insulin lispro 100 unit/mL 2 - 8 sliding scale dose subcut 07/08/24 07/21/24 Unknown History subcutaneous solution (Humalog QIDACHS U-100 Insulin) metformin 1,000 mg tablet 1,000 mg PO BIDWM 07/08/24 07/21/24 Unknown History sennosides 8.6 mg tablet (senna) 8.6 mg PO DAILY PRN Constipation 07/08/24 07/21/24 Unknown History simethicone 80 mg chewable tablet 80 mg PO Q6H PRN 07/21/24 07/21/24 Unknown History flatulence/bloating Physical Exam 2 Vital Signs: Vital Signs: Last Vital Signs Temp 98.3 F 07/27/24 12:00 Pulse 80 07/27/24 12:00 Resp 18 07/27/24 12:00 BP 130/59 L 07/27/24 12:00 Pulse Ox 94 06/17/25 12:00 O2 Del Method Nasal Cannula 07/27/24 12:00 O2 Flow Rate 4 07/27/24 12:00 FiO2 30 07/23/24 13:00 BMI result Body Mass Index 37.2 Const: General: cooperative HEENT: Head: Yes normal to inspection Face and sinus: Yes normal facial exam Mouth: Normal oral and palatal mucosa present Teeth and gingiva: d entition normal Eyes: General: appearance normal, both eyes and all related structures P upils: Equal, round and reactive pupils present Resp: Effort & Inspection: normal respiratory effort Cardio: Rate: regular rate Rhythm: regular rhythm GI: Palpation (GI): Soft to palpation and nontender : General: Yes no CVA tenderness Back/Spine/Pelvis: Back: no CVA tenderness Skin: General skin exam: no rashes or lesions noted Neuro: General: moves all extremities Cranial nerves: Yes Equal, round and reactive pupils present Extrem: General: Yes normal to inspection Psych: Other: somnolent Results Labs 07/27/24 06:29 07/27/24 06:29 Labs: Short CBC 07/27/24 Range/Units 06:29 WBC 9.1 (4.8-10.8) X10*3/uL Hgb 13.5 L (14.0-18.0) g/dl Hct 47.5 (42.0-52.0) % Plt Count 137 L (160-400) X10*3/uL BMP 07/27/24 06:29 Sodium 143 Potassium 4.8 Chloride 99 Carbon Dioxide 38 H BUN 13 Creatinine 0.70 Calcium 9.0 Liver Function 07/27/24 Range/Units 06:29 Total Bilirubin 0.6 (0.0-1.0) mg/dL AST 17 (5-37) U/L ALT 14 (0-40) U/L Alkaline Phosphatase 67 (39-117) U/L Albumin 3.8 (3.5-5.0) g/dL Microbiology Microbiology Results: Microbiology 07/21/24 18:11 Blood - Venous Blood Culture - Final No growth after 5 days. 07/21/24 18:11 Blood - Venous Blood Culture - Final Enterococcus faecalis Assessment and Plan (1) Acute respiratory failure with hypoxia and hypercarbia: Status: Acute (2) Bacteremia due to Enterococcus: Status: Acute (3) Urinary retention: Status: Acute Plan Source not clear as no urine culture positive and patient generally only respiratory complaints and TTE negative on 07/09. Would change to IV Daptomycin as linezolid can be bacteriostatic and check abdominal and pelvic CT check decubitus and bowel pathology possible or urinary obstruction. Check LUANA if able.
--- NOTE | 2024-07-27 15:05 | PM.EVENT ---
Event Note Date of Service: 07/27/24 Event Note: add Ceftriaxone to Daptomycin ?synergy Time Spent With Patient Time: Total time managing care of this patient today ____ minutes.
[2024-07-27 15:37] LABS: Glucose, Whole Blood 128 mg/dL (60-115)
--- NOTE | 2024-07-27 15:37 | HO.PM.IMPN ---
Subjective Subjective Date of Service: 07/27/24 Interval History: Somnolent but arousable. VBG essentially unchanged Review of Systems Unable to obtain clearly secondary confusion Physical Exam Vital Signs: Vital Signs: Last Vital Signs Temp 98.3 F 07/27/24 12:00 Pulse 80 07/27/24 12:00 Resp 18 07/27/24 12:00 BP 130/59 L 07/27/24 12:00 Pulse Ox 94 07/27/24 12:00 O2 Del Method Nasal Cannula 07/27/24 12:00 O2 Flow Rate 4 07/27/24 12:00 FiO2 30 07/23/24 13:00 BMI result Body Mass Index 37.2 Const: Other: Somnolent but arousable Resp: Other: Clear to auscultation no rales rhonchi or wheezes Cardio: Other: No S4; positive S1-S2; no S3 murmurs rubs or gallops GI: Other: Soft nontender nondistended normoactive bowel sounds Extrem: Other: No edema bilaterally Objective Data Active Medications Acetaminophen (Acetaminophen Oral Liquid 650 Mg/20.3 Ml Solution) 650 mg PO Q6H PRN PRN Reason: Fever >101 Last Admin: 07/22/24 13:23 Dose: 650 mg Documented By: EVONNE Ceftriaxone Sodium (Ceftriaxone Sodium 2 Gm Vial) 2 gm IVPUSH Q24H [facility] Enoxaparin Sodium (Enoxaparin Sodium 40 Mg/0.4 Ml Syringe) 40 mg SUBCUT Q24H [facility] Last Admin: 07/26/24 22:11 Dose: 40 mg Documented By: BRANDON Daptomycin 720 mg/ Sodium (Chloride) 64.4 mls @ 93.559 mls/hr IV Q24H [facility] Insulin Human Lispro (Insulin Lispro 100 Unit/Ml 3 Ml Vial) 0 unit SUBCUT QIDACHS [facility]; Protocol Last Admin: 07/27/24 12:19 Dose: Not Given Documented By: CECILIO Non-Admin Reason: No Insulin Coverage Oronoque Carbonate (Oronoque Carbonate 300 Mg Tablet) 150 mg PO BID [facility] Last Admin: 07/27/24 09:27 Dose: 150 mg Documented By: CECILIO Oronoque Carbonate (Oronoque Carbonate 300 Mg Capsule) 300 mg PO BID [facility] Last Admin: 07/27/24 09:26 Dose: 300 mg Documented By: CECILIO Quetiapine Fumarate (Quetiapine Fumarate 50 Mg Tablet) 50 mg PO BID [facility] Last Admin: 07/27/24 09:25 Dose: 50 mg Documented By: CECILIO Topiramate (Topiramate 25 Mg Tablet) 50 mg PO BID [facility] Last Admin: 07/27/24 09:26 Dose: 50 mg Documented By: CECILIO Labs 07/27/24 06:29 07/27/24 06:29 Labs: Laboratory Results - last 24 hr 07/26/24 07/26/24 07/27/24 16:04 20:55 06:29 MCV 103.7 H MCH 29.5 MCHC 28.4 L RDW 14.9 Plt Count 137 L MPV 10.9 Immature Gran % (Auto) 0.3 Neut % (Auto) 78.0 H Lymph % (Auto) 10.7 L [place] % (Auto) 5.4 Eos % (Auto) 5.4 H Baso % (Auto) 0.2 Lymph # (Auto) 1.0 L [place] # (Auto) 0.5 Eos # (Auto) 0.5 H Baso # (Auto) 0.0 Abs Immat Gran (auto) 0.03 Absolute Neuts (auto) 7.1 Absolute Nucleated RBC 0.000 Nucleated RBC % (auto) 0.0 VBG pH VBG pCO2 VBG pO2 VBG HCO3 VBG O2 Saturation VBG Base Excess Anion Gap 11 L Estim Creat Clear Calc 135.2 Estimated GFR > 60 POC Glucose 126 H 179 H Fasting Glucose 143 H Calcium 9.0 Total Bilirubin 0.6 AST 17 ALT 14 Alkaline Phosphatase 67 Total Protein 6.9 Albumin 3.8 07/27/24 07/27/24 07/27/24 06:42 07:02 11:31 MCV MCH MCHC RDW Plt Count MPV Immature Gran % (Auto) Neut % (Auto) Lymph % (Auto) [place] % (Auto) Eos % (Auto) Baso % (Auto) Lymph # (Auto) [place] # (Auto) Eos # (Auto) Baso # (Auto) Abs Immat Gran (auto) Absolute Neuts (auto) Absolute Nucleated RBC Nucleated RBC % (auto) VBG pH 7.30 L 7.36 VBG pCO2 88 78 VBG pO2 74 57 VBG HCO3 44 H 45 H VBG O2 Saturation 92.0 87.0 VBG Base Excess 13.5 15.3 Anion Gap Estim Creat Clear Calc Estimated GFR POC Glucose 139 H Fasting Glucose Calcium Total Bilirubin AST ALT Alkaline Phosphatase Total Protein Albumin 07/27/24 12:12 MCV MCH MCHC RDW Plt Count MPV Immature Gran % (Auto) Neut % (Auto) Lymph % (Auto) [place] % (Auto) Eos % (Auto) Baso % (Auto) Lymph # (Auto) [place] # (Auto) Eos # (Auto) Baso # (Auto) Abs Immat Gran (auto) Absolute Neuts (auto) Absolute Nucleated RBC Nucleated RBC % (auto) VBG pH VBG pCO2 VBG pO2 VBG HCO3 VBG O2 Saturation VBG Base Excess Anion Gap Estim Creat Clear Calc Estimated GFR POC Glucose 139 H Fasting Glucose Calcium Total Bilirubin AST ALT Alkaline Phosphatase Total Protein Albumin Microbiology Microbiology Results: Microbiology 07/21/24 18:11 Blood Culture - Final Blood - Venous No growth after 5 days. Assessment and Plan (1) Bacteremia due to Enterococcus: Status: Acute (2) Acute respiratory failure with hypoxia and hypercarbia: Status: Acute (3) Diabetes mellitus: Status: Acute Plan Assessment: 63-year-old gentleman with underlying TBI, seizure disorder, COPD admitted 07/08/2024 with acute hypoxic and hypercapnic respiratory failure likely secondary to pulmonary aspiration requiring intubation and ventilatory support likely secondary to pulmonary aspiration. Blood cultures with Enterococcus bacteremia 1.Enterococcus bacteremia -DC linezolid (2) ; start daptomycin/ceftriaxone (1) -ID recommendations implemented as above -repeat blood cultures in a.m. 2. Acute hypoxic/hypercapnic respiratory failure likely secondary to aspiration -extremely noncompliant with therapies.. Attempt BiPAP at HS.. Continue encouragement -aspiration treatment as per 1. -titrate O2 to maintain sats greater than or equal to 92% 3. Schizoaffective disorder/bipolar type -stable and well compensated at this time -continue Clozaril/lithium at current dosing 4. Diabetes type 2 requiring insulin -acceptable control on current therapies -adjust as indicated Lovenox DNR DNI Discussed with daughter. At this time this typewriter ribbon winder believes patient is not cognitively competent to make decisions regarding his health and well-being. Given such healthcare proxy we will be invoked. Daughter in agreement. Also discussed superintendent terminal treatment. We will update in the a.m. Patient will require ongoing hospitalization for IV antibiotics to treat E coli bacteremia . Quality Stroke Does the patient have a stroke diagnosis?: No VTE Prior VTE?: No VTE Risk Level:: Medical - moderate - high VTE Device Contraindication: N/A - Device Ordered VTE Drug Contraindication: N/A - Med Ordered
[2024-07-27 15:44] VITALS: BP 130/59; PULSE 80; RESP 18; TEMP 36.7; O2SAT 94
[2024-07-27] MEDS: cefTRIAXone sodium 2 GM VIAL IVPUSH (17:06)
[2024-07-27 20:00] VITALS: BP 139/65; PULSE 73; RESP 16; TEMP 36.3; O2SAT 98
[2024-07-27 20:23] LABS: Glucose, Whole Blood 109 mg/dL (60-115)
[2024-07-27] MEDS: Enoxaparin Sodium 40 MG/0.4 ML SYRINGE SUBCUT (20:32)
[2024-07-27 23:51] VITALS: BP 127/60; PULSE 82; RESP 16; TEMP 37.3; O2SAT 98
[2024-07-28 02:02] VITALS: O2SAT 98
[2024-07-28 02:55] VITALS: BP 150/65; PULSE 81; RESP 17; TEMP 36.8; O2SAT 97
[2024-07-28] MEDS: OLANZapine 10 MG VIAL 5 MG IM (05:30)
--- NOTE | 2024-07-28 06:06 | PC.NURSE ---
Pt removing all methods for supplemental O2, restless, physically pushing staff away when trying to reapply supplemental oxygen. Dr. Mcneal at bedside to assess. IM Imeldayprexa ordered and given x1. Able to redirect patient at this time to keep on supplemental O2. Oxymizer mask applied at 5L, O2 sat WNL.
[2024-07-28 07:30] LABS: Glucose, Whole Blood 130 mg/dL (60-115)
[2024-07-28 08:00] VITALS: BP 125/60; PULSE 82; RESP 17; TEMP 36.9; O2SAT 94
--- NOTE | 2024-07-28 11:39 | MHC.SLORD ---
Speech Language Pathology Order Status: Pt NPO d/t lethargy, reports indicate pt was agitated. LEAD SOFTWARE TESTER following closely; prognosis for safe resumption of PO guarded given hx of significant pharyngeal dysphagia with recurrent aspiration PNA.
[2024-07-28 11:42] LABS: Glucose, Whole Blood 115 mg/dL (60-115)
[2024-07-28 12:00] VITALS: BP 140/71; PULSE 87; RESP 18; TEMP 36.7; O2SAT 93
[2024-07-28 15:01] VITALS: BP 156/72; PULSE 80; RESP 20; TEMP 36.8; O2SAT 95
[2024-07-28 15:13] LABS: Glucose, Whole Blood 116 mg/dL (60-115)
--- NOTE | 2024-07-28 16:58 | HO.PM.IMPN ---
Subjective Subjective Date of Service: 07/29/24 Interval History: More alert today. CTA abdomen and pelvis taken without issue Review of Systems Unable to obtain clearly secondary confusion Physical Exam Vital Signs: Vital Signs: Last Vital Signs Temp 98.2 F 07/28/24 15:01 Pulse 80 07/28/24 15:01 Resp 20 07/28/24 15:01 BP 156/72 H 07/28/24 15:01 Pulse Ox 95 07/28/24 15:01 O2 Del Method Nasal Cannula 07/28/24 15:01 O2 Flow Rate 3 07/28/24 15:01 FiO2 30 07/23/24 13:00 BMI result Body Mass Index 37.2 Const: Other: Somnolent but arousable Resp: Other: Clear to auscultation no rales rhonchi or wheezes Cardio: Other: No S4; positive S1-S2; no S3 murmurs rubs or gallops GI: Other: Soft nontender nondistended normoactive bowel sounds Extrem: Other: No edema bilaterally Objective Data Active Medications Acetaminophen (Acetaminophen Oral Liquid 650 Mg/20.3 Ml Solution) 650 mg PO Q6H PRN PRN Reason: Fever >101 Last Admin: 07/22/24 13:23 Dose: 650 mg Documented By: EVONNE Ceftriaxone Sodium (Ceftriaxone Sodium 2 Gm Vial) 2 gm IVPUSH Q24H [facility] Last Admin: 07/27/24 17:06 Dose: 2 gm Documented By: CECILIO Enoxaparin Sodium (Enoxaparin Sodium 40 Mg/0.4 Ml Syringe) 40 mg SUBCUT Q24H [facility] Last Admin: 07/27/24 20:32 Dose: 40 mg Documented By: BRANDON Daptomycin 720 mg/ Sodium (Chloride) 64.4 mls @ 93.559 mls/hr IV Q24H [facility] Last Infusion: 07/27/24 18:23 Dose: Infused Documented By: CECILIO Insulin Human Lispro (Insulin Lispro 100 Unit/Ml 3 Ml Vial) 0 unit SUBCUT QIDACHS [facility]; Protocol Last Admin: 07/28/24 16:08 Dose: Not Given Documented By: CECILIO Non-Admin Reason: No Insulin Coverage Leggett Carbonate (Leggett Carbonate 300 Mg Tablet) 150 mg PO BID [facility] Last Admin: 06/18/25 08:31 Dose: Not Given Documented By: CECILIO Non-Admin Reason: NPO [place]gett Carbonate (Leggett Carbonate 300 Mg Capsule) 300 mg PO BID [facility] Last Admin: 07/28/24 08:31 Dose: Not Given Documented By: CECILIO Non-Admin Reason: NPO Quetiapine Fumarate (Quetiapine Fumarate 50 Mg Tablet) 50 mg PO BID [facility] Last Admin: 07/28/24 08:31 Dose: Not Given Documented By: CECILIO Non-Admin Reason: NPO Topiramate (Topiramate 25 Mg Tablet) 50 mg PO BID [facility] Last Admin: 07/28/24 08:31 Dose: Not Given Documented By: CECILIO Non-Admin Reason: NPO Labs 07/27/24 06:29 07/27/24 06:29 Labs: Laboratory Results - last 24 hr 07/27/24 07/28/24 07/28/24 20:15 07:17 11:38 POC Glucose 109 130 H 115 07/28/24 15:03 POC Glucose 116 H Assessment and Plan (1) Bacteremia due to Enterococcus: Status: Acute (2) Diabetes mellitus: Status: Acute Plan Assessment: 63-year-old gentleman with underlying TBI, seizure disorder, COPD admitted 07/08/2024 with acute hypoxic and hypercapnic respiratory failure likely secondary to pulmonary aspiration requiring intubation and ventilatory support likely secondary to pulmonary aspiration. Blood cultures with Enterococcus bacteremia 1.Enterococcus bacteremia -daptomycin/ceftriaxone (2).. Clinically improved -repeat blood cultures in a.m. 2. Acute hypoxic/hypercapnic respiratory failure likely secondary to aspiration -extremely noncompliant with therapies.. Attempt BiPAP at HS.. More alert this a.m. -aspiration treatment as per 1. -titrate O2 to maintain sats greater than or equal to 92% -check VBG in a.m. to assess CO2 response to therapies (when compliant) 3. Schizoaffective disorder/bipolar type -stable and well compensated at this time -continue Clozaril/lithium at current dosing 4. Diabetes type 2 requiring insulin -acceptable control on current therapies -adjust as indicated Lovenox DNR DNI Discussed with daughter. At this time this technical writer believes patient is not cognitively competent to make decisions regarding his health and well-being. Given such healthcare proxy we will be invoked. Daughter in agreement. Also discussed ad terminal makeup operator treatment. We will update in the a.m. Patient will require ongoing hospitalization for IV antibiotics to treat E coli bacteremia . Quality Stroke Does the patient have a stroke diagnosis?: No VTE Prior VTE?: No VTE Risk Level:: Medical - moderate - high VTE Device Contraindication: N/A - Device Ordered VTE Drug Contraindication: N/A - Med Ordered
[2024-07-28] MEDS: cefTRIAXone sodium 2 GM VIAL IVPUSH (17:10)
[2024-07-28 20:00] VITALS: BP 138/81; PULSE 82; RESP 16; TEMP 37.1; O2SAT 96
[2024-07-28 21:00] LABS: Glucose, Whole Blood 139 mg/dL (60-115)
[2024-07-29] VITALS (7 sets, daily range): BP systolic 127–161; BP diastolic 60–83; PULSE 83–99; RESP 18–22; TEMP 36.2–37.3; O2SAT 93–100
[2024-07-29] MEDS: Haloperidol Lactate 5 MG/ML VIAL IM (01:49)
[2024-07-29] MEDS: diazePAM 10 MG/2 ML CARTRIDGE IVPUSH ×2 (02:05→05:52)
--- NOTE | 2024-07-29 02:51 | PM.EVENT ---
Event Note Date of Service: 07/29/24 Event Note: 1:18 AM - Contacted by nursing to notify that the patient has been combative with staff, constantly pulling at oxygen tubing and taking it off. Upon doing this is oxygen saturation dropped to the 50s. Haldol 5 mg IM. 1:57 AM - contacted by nursing to notify patient is threatening, kicking and spitting and acutely in his oxygen on. Valium 10 mg IV x1 ordered. Time Spent With Patient Time: Total time managing care of this patient today ____ minutes.
[2024-07-29 07:40] LABS: Glucose, Whole Blood 124 mg/dL (60-115)
[2024-07-29] MEDS: Topiramate 25 MG TABLET 50 MG PO ×2 (07:41→21:19)
[2024-07-29] MEDS: Lithium Carbonate 300 MG CAPSULE PO ×2 (07:41→21:21)
[2024-07-29] MEDS: QUEtiapine Fumarate 50 MG TABLET PO ×2 (07:41→21:21)
[2024-07-29] MEDS: Lithium Carbonate 300 MG TABLET 150 MG PO ×2 (07:50→21:18)
[2024-07-29 10:01] LABS: MANUAL DIFF FLAG NO
[2024-07-29 10:06] LABS: Venous Blood Gas Refer to POC result
[2024-07-29 10:07] LABS: Basophils Percent Auto 0.3 % (0-2); Eosinophils Absolute Auto 0.4 X10*3/uL (0.0-0.4); Eosinophils Percent Auto 3.3 % (0-4); Hematocrit 50.7 % (42.0-52.0); Hemoglobin 14.7 g/dl (14.0-18.0); Imm Gran Abs Auto 0.04 X10*3/uL (0.00-0.03); Imm Gran Pct Auto 0.4 % (0.0-0.4); Lymphocytes Absolute Auto 0.9 X10*3/uL (1.2-4.9); Lymphocytes Percent Auto 8.1 % (20-40); Mean Corpuscular Hemoglobin 29.6 pg (27.0-33.0); Mean Platelet Volume 10.7 fL (9.4-12.4); Monocytes Absolute Auto 0.6 X10*3/uL (0.1-1.2); Monocytes Percent Auto 5.2 % (2-11); Neutrophils Absolute Auto 8.8 x10*3/uL (2.0-8.3); Neutrophils Percent Auto 82.7 % (45-73); Platelet Count 137 X10*3/uL (160-400); Red Blood Count 4.97 X10*6/uL (4.60-5.80); Red Cell Distribution Width 14.7 % (11.0-16.0); White Blood Count 10.7 X10*3/uL (4.8-10.8)
[2024-07-29 10:07] LABS: VBG Base Excess 12.7 mmol/L; VBG HCO3 44 mmol/L (22-26); VBG pCO2 87 mmHg; VBG pH 7.31 (7.32-7.43); VBG pO2 89 mmHg
[2024-07-29 10:29] LABS: Alanine Aminotransferase 19 U/L (0-40); Albumin Level 4.1 g/dL (3.5-5.0); Alkaline Phosphatase 75 U/L (39-117); Anion Gap 9 (12-20); Aspartate Amino Transferase 21 U/L (5-37); Bilirubin Total 0.4 mg/dL (0.0-1.0); Blood Urea Nitrogen 19 mg/dL (9-16); Calcium 9.8 mg/dL (8.4-10.2); Carbon Dioxide 40 mmol/L (22-29); Chloride 101 mmol/L (96-108); Creatinine Clr Calc Pharmacy 133.3; Estimated Glomerular Filt Rate > 60; Glucose Fasting 147 mg/dL (60-99); Potassium 4.4 mmol/L (3.3-5.1); Sodium 146 mmol/L (135-145); Total Protein 7.9 g/dL (6.5-8.0)
--- NOTE | 2024-07-29 10:59 | MHC.SL.SWA ---
Speech Pathologist Impression: Risk of Aspiration Due to: Moderate oral pharyngeal dysphagia, history of non compliance with dietary consistency recommendations, impulsivity/behavorial issues. Dysphasia Diet Status: Puree, Honey Thick liquids, pills crushed in puree, all by tsp only, 1-1 feed. Liquid Consistency and Strategies for Safe Swallow: Liquid Intake Recommendation: Honey Thick Liquid Intake Strategies: by tsp. Solid Food Consistency: Dietary Recommendations: Puree (NDD1) Additional Modifications to Solid Foods: Recommend NDD1 (purees) with HONEY THICK liquids by tsp, pills crushed in puree. Patient demonstrates high level of impulsivity, may try to chug liquids if given cup, take too large bites of food, and talk while eating (all aspiration risks). Oral Medication Intake: Crushed in puree Please contact the pharmacy regarding appropriate crushable or liquid drug formulations that are available whenever modified delivery is recommended. Compensatory Strategies and Precautions to be Taken for Safe Swallow: Sitting upright (head of bed at 90 degrees) 1-1 feeding, liquids by TSP, alternate liquids and solids, small bites and sips, check for swallow before presenting more food. Supervision While Eating and Drinking for Safe Swallow: 1-1 assistance Foods to Avoid: Swallowing Recommended Treatments: Compensatory strategies Recommendation for Speech: Inpatient Speech Therapy Comment: Patient this morning had been NPO > 48hrs/ w/o nutrition source. Patient, per sitter had been medicated, had not slept previous evening, appeared to be heavily asleep. None the less, RN, when approached with request that PIPE MANUFACTURE SUPERVISOR be paged when patient awake, recommended staff work to wake him so that his swallow could be re-assessed. RN and sitter repositioned patient, sat him upright in bed, with oxymask in place. Patient verbally responding minimally, continued with eyes closed. PIPE MANUFACTURE SUPERVISOR presented tsp of honey thick liquid, with patient stripping spoon, orally manipulating, producing swallow after moderate delay with laryngeal transit on swallow palpated as reduced. Patient's voice/airway remained clear after swallow. Patient given second trial with similar response. RN reported giving meds in puree this morning with no difficulty. Recommend RESTART diet of PUREE (NDD1) with HONEY THICK liquids, all by tsp only, pills crushed in puree. Patient will continue to need 1-1 feeding. DO NOT ATTEMPT IF PATIENT IS NOT ADEQUATELY AWAKE/LETHARGIC. PIPE MANUFACTURE SUPERVISOR will continue to follow closely, re-assess as indicated. MD notified of recommendation by secure text, RN in person. Frequency/Duration: Date Range for Service Req: Timeline to reassess: Shooting Gallery Operator Clinican/Clinical Fellow: No Supervisory Statement: I have reviewed and agree with the student/clinical fellow's documentation: N/A Speech Language Pathologist: Claire Corbett M.A., CCC-PIPE MANUFACTURE SUPERVISOR
[2024-07-29 11:34] LABS: Glucose, Whole Blood 147 mg/dL (60-115)
[2024-07-29 15:50] LABS: Glucose, Whole Blood 106 mg/dL (60-115)
--- NOTE | 2024-07-29 16:34 | HO.PM.IMPN ---
Subjective Subjective Date of Service: 07/29/24 Interval History: Pt was agitated and combative last night, constantly pulling off oxygen, kicking, and spitting Desatting to 50s after pulling off oxygen Required Haldol 5 mg IM and then Valium 10 mg IV Currently somnolent but arousable, though falling back asleep during interview and exam Reports he is tired, but denies any other acute medical complaints VBG showing pH 7.31, pCO2 87, bicarb 44 Physical Exam Vital Signs: Vital Signs: Last Vital Signs Temp 97.8 F 07/29/24 15:33 Pulse 87 07/29/24 15:33 Resp 18 07/29/24 15:33 BP 132/60 07/29/24 15:33 Pulse Ox 98 07/29/24 15:33 O2 Del Method Nasal Cannula 07/29/24 15:33 O2 Flow Rate 5 07/29/24 15:33 FiO2 30 07/23/24 13:00 BMI result Body Mass Index 37.2 General: Somnolent but arousable, answering appropriately, falling back asleep during interview and exam. Alert and oriented to person and time, not too specific place. In no acute distress Resp: CTA bilaterally CVS: S1, S2, RRR GI: +BS, NT, no distention Skin: Warm, dry Neuro: Cranial nerves II-XII grossly intact bilaterally. Motor grossly intact bilaterally Extremities: No edema Objective Data Active Medications Acetaminophen (Acetaminophen Oral Liquid 650 Mg/20.3 Ml Solution) 650 mg PO Q6H PRN PRN Reason: Fever >101 Last Admin: 07/22/24 13:23 Dose: 650 mg Documented By: EVONNE Ceftriaxone Sodium (Ceftriaxone Sodium 2 Gm Vial) 2 gm IVPUSH Q24H [facility] Last Admin: 07/28/24 17:10 Dose: 2 gm Documented By: MARGIETEKAlan Enoxaparin Sodium (Enoxaparin Sodium 40 Mg/0.4 Ml Syringe) 40 mg SUBCUT Q24H [facility] Last Admin: 07/28/24 21:20 Dose: Not Given Documented By: LOLIS Non-Admin Reason: pt combative, refusing Daptomycin 720 mg/ Sodium (Chloride) 64.4 mls @ 93.559 mls/hr IV Q24H [facility] Last Infusion: 07/28/24 18:29 Dose: Infused Documented By: CECILIO Insulin Human Lispro (Insulin Lispro 100 Unit/Ml 3 Ml Vial) 0 unit SUBCUT QIDACHS [facility]; Protocol Last Admin: 07/29/24 12:31 Dose: Not Given Documented By: BERNARDO Non-Admin Reason: No Insulin Coverage [place] Carbonate ([place] Carbonate 300 Mg Tablet) 150 mg PO BID [facility] Last Admin: 07/29/24 07:50 Dose: 150 mg Documented By: BERNARDO [place] Carbonate ([place] Carbonate 300 Mg Capsule) 300 mg PO BID [facility] Last Admin: 07/29/24 07:41 Dose: 300 mg Documented By: BERNARDO Quetiapine Fumarate (Quetiapine Fumarate 50 Mg Tablet) 50 mg PO BID [facility] Last Admin: 07/29/24 07:41 Dose: 50 mg Documented By: BERNARDO Topiramate (Topiramate 25 Mg Tablet) 50 mg PO BID [facility] Last Admin: 07/29/24 07:41 Dose: 50 mg Documented By: BERNARDO Labs 07/29/24 09:55 07/29/24 09:55 Labs: Laboratory Results - last 24 hr 07/28/24 07/29/24 07/29/24 20:56 07:06 09:55 MCV 102.0 H MCH 29.6 MCHC 29.0 L RDW 14.7 Plt Count 137 L MPV 10.7 Immature Gran % (Auto) 0.4 Neut % (Auto) 82.7 H Lymph % (Auto) 8.1 L [place] % (Auto) 5.2 Eos % (Auto) 3.3 Baso % (Auto) 0.3 Lymph # (Auto) 0.9 L [place] # (Auto) 0.6 Eos # (Auto) 0.4 Baso # (Auto) 0.0 Abs Immat Gran (auto) 0.04 H Absolute Neuts (auto) 8.8 H Absolute Nucleated RBC 0.000 Nucleated RBC % (auto) 0.0 VBG pH VBG pCO2 VBG pO2 VBG HCO3 VBG O2 Saturation VBG Base Excess Anion Gap 9 L Estim Creat Clear Calc 133.3 Estimated GFR > 60 POC Glucose 139 H 124 H Fasting Glucose 147 H Calcium 9.8 D Total Bilirubin 0.4 AST 21 ALT 19 Alkaline Phosphatase 75 Total Protein 7.9 Albumin 4.1 07/29/24 07/29/24 07/29/24 10:04 11:26 15:37 MCV MCH MCHC RDW Plt Count MPV Immature Gran % (Auto) Neut % (Auto) Lymph % (Auto) Pike % (Auto) Eos % (Auto) Baso % (Auto) Lymph # (Auto) [place] # (Auto) Eos # (Auto) Baso # (Auto) Abs Immat Gran (auto) Absolute Neuts (auto) Absolute Nucleated RBC Nucleated RBC % (auto) VBG pH 7.31 L VBG pCO2 87 VBG pO2 89 VBG HCO3 44 H VBG O2 Saturation 97.0 VBG Base Excess 12.7 Anion Gap Estim Creat Clear Calc Estimated GFR POC Glucose 147 H 106 Fasting Glucose Calcium Total Bilirubin AST ALT Alkaline Phosphatase Total Protein Albumin Assessment and Plan (1) Bacteremia due to Enterococcus: Status: Acute Plan 63-year-old gentleman resident of [facility] with underlying TBI, seizure disorder, COPD admitted 07/08/2024 with acute hypoxic and hypercapnic respiratory failure likely secondary to pulmonary aspiration requiring intubation and ventilatory support likely secondary to pulmonary aspiration. Blood cultures with Enterococcus bacteremia. Enterococcus bacteremia Daptomycin/ceftriaxone as per ID (3) Somnolent, though more alert and clinically improved ID consult Repeat blood cultures pending Acute hypoxic/hypercapnic respiratory failure likely secondary to aspiration Extremely noncompliant with therapies VB pH 7.31, pCO2 87, and bicarb 44 Being covered with antibiotics as above Titrate O2 to maintain sats greater than or equal to 92% Diet Seen and evaluated by speech Recommended resumption of pureed diet with honey thick liquids Schizoaffective disorder/bipolar type Stable and well compensated at this time Continue Clozaril/lithium at current dosing Insulin-dependent type [address] sliding scale insulin Hold metformin BPH Continue tamsulosin Lovenox DNR DNI Previously provider discussed with daughter. Pt was deemed not cognitively competent to make decisions regarding his health and well-being and healthcare proxy was invoked. Pt requires continued hospitalization due to need for continued IV antibiotic administration. Quality Stroke Does the patient have a stroke diagnosis?: No VTE Prior VTE?: No VTE Risk Level:: Medical - moderate - high VTE Device Contraindication: N/A - Device Ordered VTE Drug Contraindication: N/A - Med Ordered
[2024-07-29] MEDS: cefTRIAXone sodium 2 GM VIAL IVPUSH (17:43)
[2024-07-29 20:28] LABS: Glucose, Whole Blood 169 mg/dL (60-115)
[2024-07-29] MEDS: Propranolol HCL 10 MG TABLET 5 MG PO (21:18)
[2024-07-29] MEDS: traZODone HCL 50 MG TABLET PO (21:19)
[2024-07-29] MEDS: Atorvastatin Calcium 10 MG TABLET PO (21:20)
[2024-07-29] MEDS: Enoxaparin Sodium 40 MG/0.4 ML SYRINGE SUBCUT (21:21)
[2024-07-30 03:28] VITALS: BP 145/70; PULSE 95; RESP 20; TEMP 36.8; O2SAT 92
--- NOTE | 2024-07-30 03:52 | PC.NURSE ---
Patient frequently removed o2 during the night. Oxygen as low as 50 with blue lips when on RA. Patient quickly recovers when oxygen replaced. Currently on 4L via Oxymask for mouth breathing sating at 92
[2024-07-30] MEDS: diazePAM 10 MG/2 ML CARTRIDGE 7.5 MG IVPUSH (05:22)
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
[2024-07-30 07:31] LABS: Glucose, Whole Blood 144 mg/dL (60-115)
--- NOTE | 2024-07-30 07:38 | HO.PM.IMPN ---
Subjective Subjective Date of Service: 07/30/24 Interval History: Pt again restless and agitated last night, requiring Valium IV Appeared somnolent, but arousable when seen this morning Had no acute complaints, kept falling asleep during interview and exam Has been refusing p.o. intake Later in the afternoon pt noted by nursing to be desatting into the 70s, increased work of breathing, and new wet sounding cough Pt initially satting at 90% on 15 L OxyMask, required multiple rounds of suctioning Contacted both sister/HCP and provider at [facility]; HCP had been invoked prior to admission Decision was made by [facility] to make pt MINING MANAGER Review of Systems Review of Systems: Yes Unobtainable due to mental status Physical Exam Vital Signs: Vital Signs: Last Vital Signs Temp 98.3 F 07/30/24 03:28 Pulse 95 07/30/24 03:28 Resp 20 07/30/24 03:28 BP 145/70 H 07/30/24 03:28 Pulse Ox 92 07/30/24 03:28 O2 Del Method Oxymask 07/30/24 03:28 O2 Flow Rate 4 07/30/24 03:28 FiO2 30 07/23/24 13:00 BMI result Body Mass Index 37.2 General: Somnolent but arousable, alert and oriented to self only Resp: Right-sided rhonchi CVS: S1, S2, RRR GI: +BS, NT, no distention Skin: Warm, dry Neuro: Motor grossly intact bilaterally. Generalized weakness Extremities: No edema Psych: Confused, somnolent Objective Data Active Medications Acetaminophen (Acetaminophen Oral Liquid 650 Mg/20.3 Ml Solution) 650 mg PO Q6H PRN PRN Reason: Fever >101 Last Admin: 07/22/24 13:23 Dose: 650 mg Documented By: EVONNE Albuterol Sulfate (Albuterol Sulfate 90 Mcg 8 Gm Inhaler) 2 puff INHALE Q6H PRN PRN Reason: Bronchospasm/SOB Aspirin (Aspirin Enteric Coated 81 Mg Tablet.) 81 mg PO DAILY JENNIFER Atorvastatin Calcium (Atorvastatin Calcium 10 Mg Tablet) 10 mg PO BEDTIME JENNIFER Last Admin: 07/29/24 21:20 Dose: 10 mg Documented By: RYAN Bisacodyl (Bisacodyl 10 Mg Supp.Rect) 10 mg [place] DAILY PRN PRN Reason: constipation Ceftriaxone Sodium (Ceftriaxone Sodium 2 Gm Vial) 2 gm IVPUSH Q24H [facility] Last Admin: 07/29/24 17:43 Dose: 2 gm Documented By: BERNARDO Enoxaparin Sodium (Enoxaparin Sodium 40 Mg/0.4 Ml Syringe) 40 mg SUBCUT Q24H [facility] Last Admin: 07/29/24 21:21 Dose: 40 mg Documented By: RYAN Fluticasone/Vilanterol (Fluticasone/Vilanterol 100/25 Blst.W.Dev) 1 puff INHALE RDAILY [facility] Daptomycin 720 mg/ Sodium (Chloride) 64.4 mls @ 93.559 mls/hr IV Q24H [facility] Last Infusion: 07/29/24 19:06 Dose: Infused Documented By: BERNARDO Insulin Human Lispro (Insulin Lispro 100 Unit/Ml 3 Ml Vial) 0 unit SUBCUT QIDACHS [facility]; Protocol Last Admin: 07/29/24 21:10 Dose: Not Given Documented By: RYAN Non-Admin Reason: No Insulin Coverage [place] Carbonate ([place] Carbonate 300 Mg Tablet) 150 mg PO BID [facility] Last Admin: 07/29/24 21:18 Dose: 150 mg Documented By: RYAN [place] Carbonate ([place] Carbonate 300 Mg Capsule) 300 mg PO BID [facility] Last Admin: 07/29/24 21:21 Dose: 300 mg Documented By: RYAN Propranolol HCl (Propranolol Hcl 10 Mg Tablet) 5 mg PO BID [facility]; Protocol Last Admin: 07/29/24 21:18 Dose: 5 mg Documented By: RYAN Quetiapine Fumarate (Quetiapine Fumarate 50 Mg Tablet) 50 mg PO BID [facility] Last Admin: 07/29/24 21:21 Dose: 50 mg Documented By: RYAN Senna (Sennosides 8.6 Mg Tablet) 8.6 mg PO DAILY PRN PRN Reason: Constipation Senna/Docusate Sodium (Sennosides/Docusate Sodium Tablet) 2 tab PO BID [facility] Last Admin: 07/29/24 21:26 Dose: Not Given Documented By: RYAN Non-Admin Reason: Unable to Scan Barcode Simethicone (Simethicone 80 Mg Tab.Chew) 80 mg PO Q6H PRN PRN Reason: flatulence/bloating Sodium Biphosphate/Sodium Phosphate (Sodium Phosphate,Letcher-Dibasic 133 Ml Enema) 118 ml [place] DAILY PRN PRN Reason: constipation Tamsulosin HCl (Tamsulosin Hcl 0.4 Mg Capsule) 0.4 mg PO BEDTIME [facility] Last Admin: 07/29/24 21:26 Dose: Not Given Documented By: RYAN Non-Admin Reason: pt unable to take Tiotropium Pound (Tiotropium Pound 2.5 Mcg 1 Puff/2.5 Mcg Mist.Inhal) 2 puff INHALE RDAILY [facility] Topiramate (Topiramate 25 Mg Tablet) 50 mg PO BID [facility] Last Admin: 07/29/24 21:19 Dose: 50 mg Documented By: RYAN Trazodone HCl (Trazodone Hcl 50 Mg Tablet) 50 mg PO BEDTIME [facility] Last Admin: 07/29/24 21:19 Dose: 50 mg Documented By: RYAN Labs 07/29/24 09:55 07/29/24 09:55 Labs: Laboratory Results - last 24 hr 07/29/24 07/29/24 07/29/24 07:06 09:55 10:04 MCV 102.0 H MCH 29.6 MCHC 29.0 L RDW 14.7 Plt Count 137 L MPV 10.7 Immature Gran % (Auto) 0.4 Neut % (Auto) 82.7 H Lymph % (Auto) 8.1 L [place] % (Auto) 5.2 Eos % (Auto) 3.3 Baso % (Auto) 0.3 Lymph # (Auto) 0.9 L [place] # (Auto) 0.6 Eos # (Auto) 0.4 Baso # (Auto) 0.0 Abs Immat Gran (auto) 0.04 H Absolute Neuts (auto) 8.8 H Absolute Nucleated RBC 0.000 Nucleated RBC % (auto) 0.0 VBG pH 7.31 L VBG pCO2 87 VBG pO2 89 VBG HCO3 44 H VBG O2 Saturation 97.0 VBG Base Excess 12.7 Anion Gap 9 L Estim Creat Clear Calc 133.3 Estimated GFR > 60 POC Glucose 124 H Fasting Glucose 147 H Calcium 9.8 D Total Bilirubin 0.4 AST 21 ALT 19 Alkaline Phosphatase 75 Total Protein 7.9 Albumin 4.1 07/29/24 07/29/24 07/29/24 11:26 15:37 20:25 MCV MCH MCHC RDW Plt Count MPV Immature Gran % (Auto) Neut % (Auto) Lymph % (Auto) [place] % (Auto) Eos % (Auto) Baso % (Auto) Lymph # (Auto) [place]cher # (Auto) Eos # (Auto) Baso # (Auto) Abs Immat Gran (auto) Absolute Neuts (auto) Absolute Nucleated RBC Nucleated RBC % (auto) VBG pH VBG pCO2 VBG pO2 VBG HCO3 VBG O2 Saturation VBG Base Excess Anion Gap Estim Creat Clear Calc Estimated GFR POC Glucose 147 H 106 169 H Fasting Glucose Calcium Total Bilirubin AST ALT Alkaline Phosphatase Total Protein Albumin 07/30/24 07:17 MCV MCH MCHC RDW Plt Count MPV Immature Gran % (Auto) Neut % (Auto) Lymph % (Auto) [place] % (Auto) Eos % (Auto) Baso % (Auto) Lymph # (Auto) [place] # (Auto) Eos # (Auto) Baso # (Auto) Abs Immat Gran (auto) Absolute Neuts (auto) Absolute Nucleated RBC Nucleated RBC % (auto) VBG pH VBG pCO2 VBG pO2 VBG HCO3 VBG O2 Saturation VBG Base Excess Anion Gap Estim Creat Clear Calc Estimated GFR POC Glucose 144 H Fasting Glucose Calcium Total Bilirubin AST ALT Alkaline Phosphatase Total Protein Albumin Microbiology Microbiology Results: Microbiology 07/28/24 17:24 Blood Culture - Preliminary Blood - Venous No growth after 24 hours. 07/28/24 17:29 Blood Culture - Preliminary Blood - Venous No growth after 24 hours. Assessment and Plan (1) Streptococcal bacteremia: Status: Acute Plan 63-year-old gentleman resident of [facility] with underlying TBI, seizure disorder, COPD admitted 07/08/2024 with acute hypoxic and hypercapnic respiratory failure likely secondary to pulmonary aspiration requiring intubation and ventilatory support likely secondary to pulmonary aspiration. Blood cultures with Enterococcus bacteremia. Pt eventually extubated and transitioned to the medical floor where he was treated for Enterococcus bacteremia with daptomycin and ceftriaxone. Pt is noted to be somnolent, generalized weak, and overall not responding well to therapies. Has been agitated and restless at night requiring IV Valium. Pt continued to aspirate during stay, requiring increased supplemental oxygen and suctioning, and with increased work of breathing. Contacted patient's HCP/sister as well as provider at [facility]. Decision was made to make pt MINING MANAGER. MINING MANAGER Morphine, Valium, scopolamine patch Diet Seen and evaluated by speech Continued pureed diet with honey thick liquids Lovenox DNR DNI Pt will require continue hospital stay while MINING MANAGER and awaiting possible transfer back to [facility]. Quality Stroke Does the patient have a stroke diagnosis?: No VTE Prior VTE?: No VTE Risk Level:: Medical - moderate - high VTE Device Contraindication: N/A - Device Ordered VTE Drug Contraindication: N/A - Med Ordered
[2024-07-30 07:41] VITALS: BP 126/64; PULSE 103; RESP 18; TEMP 37.2
--- NOTE | 2024-07-30 11:02 | MHC.CM.PN ---
Per PA, Patient is medically cleared for dc to return to LTC @ [facility]. CM has faxed requested clinicals to [employer] @ [phone] for possible auth/denial from [facility]. If denied, Patient can return to [facility] under his [place] Medicaid. CM awaits word on auth/denial.
[2024-07-30 11:44] LABS: Glucose, Whole Blood 164 mg/dL (60-115)
[2024-07-30 11:45] VITALS: BP 146/67; PULSE 96; RESP 18; TEMP 36.2; O2SAT 92
[2024-07-30 15:35] LABS: Glucose, Whole Blood 128 mg/dL (60-115)
--- NOTE | 2024-07-30 15:37 | MHC.CM.PN ---
JOSE spoke with Shae from [employer] @ [phone], EXT [phone] and the case has gone to MD review. JOSE will continue to follow.
[2024-07-30 15:49] VITALS: BP 127/61; PULSE 92; RESP 19; TEMP 36.8; O2SAT 4
[2024-07-30 16:47] VITALS: RESP 40
[2024-07-30] MEDS: Morphine Sulfate 2 MG/ML CARTRIDGE IVPUSH (16:47)
[2024-07-30] MEDS: Scopolamine 1.5 MG PATCH.TD.3 EAR-BEHIND (16:50)
--- NOTE | 2024-07-30 17:40 | PC.NURSE ---
pt has 1:1 sitter and camera in place. constantly removing oxymask/ NC throughout shift, usually able to reapply o2 with pts cooperation. unable to give moring medications safely d/t lethargy. Jj LINDSEY aware. 1330 pts o2 has dropped to low 70s, increased WOB, abd breathing, tachypnea and cyanotic lips. o2 increased to 15L oxymask with slow recovery to low 90s. Jj LINDSEY notified and at bedside. Stated will talk with Dr. Blank and family regarding goals of care. 1730 pt weaned to 4L NC, status changed to PATROL JUDGE. medicated per APR. pt appears comfortable at this time
[2024-07-30 20:00] VITALS: RESP 17
[2024-07-31] VITALS (13 sets, daily range): RESP 20–52; TEMP 37.7–38
[2024-07-31] MEDS: Morphine Sulfate 2 MG/ML CARTRIDGE IVPUSH ×5 (12:20→18:38)
[2024-07-31] MEDS: diazePAM 10 MG/2 ML CARTRIDGE 5 MG IVPUSH ×2 (14:56→19:44)
[2024-07-31] MEDS: Acetaminophen Supp 650 MG SUPP.RECT PR (14:56)
--- NOTE | 2024-07-31 19:23 | P.PNIM_ITS ---
Subjective Subjective Date of Service: 07/31/24 Interval History: Pt REMOTELY OPERATED VEHICLE Obtunded, resting comfortably in bed Review of Systems Review of Systems: Yes Unobtainable due to mental status Physical Exam 2 Vital Signs: Vital Signs: Last Vital Signs Temp 99.8 F 07/31/24 16:06 Pulse 92 07/30/24 15:49 Resp 52 H 07/31/24 18:38 BP 127/61 07/30/24 15:49 Pulse Ox 4 L 07/30/24 15:49 O2 Del Method Oxymask 07/30/24 15:49 O2 Flow Rate 2 07/30/24 11:45 FiO2 30 07/23/24 13:00 BMI result Body Mass Index 37.2 Pt obtunded, resting comfortably in bed Is currently REMOTELY OPERATED VEHICLE Objective Data Active Medications Acetaminophen (Acetaminophen Supp 650 Mg Supp.Rect) 650 mg HI Q4H PRN PRN Reason: Pain, Mild 1-3,fever,headache Last Admin: 07/31/24 14:56 Dose: 650 mg Documented By: LEANDER Diazepam (Diazepam 10 Mg/2 Ml Cartridge) 5 mg IVPUSH Q4H PRN PRN Reason: anxiety/restlessness Last Admin: 07/31/24 14:56 Dose: 5 mg Documented By: LEANDER Morphine Sulfate (Morphine Sulfate 2 Mg/Ml Cartridge) 3 mg IVPUSH Q1H PRN; Protocol PRN Reason: anxiety/restlessness Scopolamine (Scopolamine 1.5 Mg Patch.Td.3) 1.5 mg EAR-BEHIND Q72H JENNIFER Last Admin: 07/30/24 16:50 Dose: 1.5 mg Documented By: LEANDER Labs 07/29/24 09:55 07/29/24 09:55 Microbiology Microbiology Results: Microbiology 07/28/24 17:24 Blood Culture - Preliminary Blood - Venous No growth after 48 hours. 07/28/24 17:29 Blood Culture - Preliminary Blood - Venous No growth after 48 hours. Assessment and Plan (1) Bacteremia due to Enterococcus: Status: Acute (2) Acute respiratory failure with hypoxia and hypercarbia: Status: Acute Plan 63-year-old gentleman resident of [facility] with underlying TBI, seizure disorder, COPD admitted 07/08/2024 with acute hypoxic and hypercapnic respiratory failure likely secondary to pulmonary aspiration requiring intubation and ventilatory support likely secondary to pulmonary aspiration. Blood cultures with Enterococcus bacteremia. Pt eventually extubated and transitioned to the medical floor where he was treated for Enterococcus bacteremia with daptomycin and ceftriaxone. Pt is noted to be somnolent, generalized weak, and overall not responding well to therapies. Has been agitated and restless at night requiring IV Valium. Pt continued to aspirate during stay, requiring increased supplemental oxygen and suctioning, and with increased work of breathing. Contacted patient's HCP/sister as well as provider at [facility]. Decision was made to make pt REMOTELY OPERATED VEHICLE. REMOTELY OPERATED VEHICLE Morphine, Valium, scopolamine patch Pt will require continue hospital stay while REMOTELY OPERATED VEHICLE and awaiting possible transfer back to [facility]. Quality Stroke Does the patient have a stroke diagnosis?: No VTE Prior VTE?: No VTE Risk Level:: Medical - moderate - high VTE Device Contraindication: N/A - Device Ordered VTE Drug Contraindication: N/A - Med Ordered
--- NOTE | 2024-07-31 21:54 | PM.DDS ---
Discharge Sum: Prov Provider Primary care physician: Hilario Blank DO Discharge Sum: Diag Contributing Factors (1) Bacteremia due to Enterococcus: Contributing factors: Acute respiratory failure (2) Acute respiratory failure with hypoxia and hypercarbia: Contributing factors: Aspiration pneumonia Discharge Sum: Summary Date and Time Date of admission: 07/21/24 20:37 Summary Details: 63-year-old gentleman resident of [facility] with underlying TBI, seizure disorder, COPD admitted 07/08/2024 with acute hypoxic and hypercapnic respiratory failure likely secondary to pulmonary aspiration requiring intubation and ventilatory support likely secondary to pulmonary aspiration. Blood cultures with Enterococcus bacteremia. Pt eventually extubated and transitioned to the medical floor where he was treated for Enterococcus bacteremia with daptomycin and ceftriaxone. Pt is noted to be somnolent, generalized weak, and overall not responding well to therapies. Has been agitated and restless at night requiring IV Valium. Pt continued to aspirate during stay, requiring increased supplemental oxygen and suctioning, and with increased work of breathing. Contacted patient's HCP/sister as well as provider at [facility]. 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 DAIRY PRODUCTS MAKER Morphine, Valium, scopolamine patch note: Around 21:45 RN mentioned that patient appears to have passed. I went and examined the patient. Patient has no respirations, not responding to verbal stimuli tactile stimuli, no corneal reflex, pupils are fixed and dilated. Patient pronounced at 21:50 on 07/31/2024. Additional Data Attending physician: CÉSAR Edmonds
--- NOTE | 2024-07-31 23:07 | PC.NURSE ---
[id number] Family came to this RN with concerns of patient breathing. This RN went to room to assess patient. MD notified with concerns as no respirations were observed and no pulse felt. Physician came to bedside and pronounced patient. EOL care provided. Family was at bedside and confirmed home and wishes for patient.
--- NOTE | 2024-08-01 14:35 | P.DN_ITS ---
Discharge Sum: Prov Provider Primary care physician: Hilario Blank DO Discharge Sum: Diag Contributing Factors (1) Bacteremia due to Enterococcus: (2) Acute respiratory failure with hypoxia and hypercarbia: Discharge Sum: Summary Date and Time Date of admission: 07/21/24 20:37 Summary Details: From admitting HPI: Date of Service: 07/21/24 Attending physician on admission: Daniel Blanton Chief Complaint: SOB The patient is a 63-year-old male with a past medical history of COPD, TBI, seizure disorders, diabetes mellitus with recent admission 07/08/24 to 07/15/24? with acute hypoxic hypercapnic respiratory failure which required ventilatory support for 4 days due to pulmonary aspiration, bacteremia and? enterovirus/rhinovirus infection. Discharged on 14 days of amoxicillin- clavulanate.? ?Today patient represents to the emergency department with worsening shortness of breath and generalized malaise.? ?Laboratory data significant for blood gas showing significant hypercapnia, 7.23/100/84/42.? WBC elevated to 16.6.? ?Patient required? emergent intubation in the? emergency department? for airway protection due to severe hypercapnia.? IMAGING:? Chest Xray: ? my interpretation, chest x-ray consistent? aspiration with worsening airspace disease in the right upper lobe,? also mild degree of pulmonary edema ED COURSE:? ?Patient received? 1 L bolus, cefepime 2 g and Solu-Medrol 125 mg Hospital course: 63-year-old gentleman resident of [facility] with underlying TBI, seizure disorder, COPD initially admitted on 07/08/2024 to the ICU with acute hypoxic and hypercapnic respiratory failure likely secondary to pulmonary aspiration requiring intubation and ventilatory support likely secondary to pulmonary aspiration. Blood cultures with Enterococcus bacteremia. Pt eventually extubated and transitioned to the medical floor where he was treated for Entero coccus bacteremia with daptomycin and ceftriaxone. Hospital course was complicated by overall poor response to cord therapies. Pt appeared to be continually aspirating despite preventative measures. Pt soon became somnolent, generalized weak, and increasingly confused. Pt was agitated and restless at night requiring IV Valium. Pt continued to aspirate during stay, requiring increased supplemental oxygen and suctioning, and with increased work of breathing. Contacted patient's HCP/sister as well as provider at [facility] and decision was made to make pt [employer]. Around 21:45 on 07/31/2024 RN notified graphic design manager that patient appears to have passed. Patient was examined and had no respirations, not responding to verbal stimuli tactile stimuli, no corneal reflex, pupils are fixed and dilated. Was pronounced at 21:50 on 07/31/2024. Family was at bedside. Additional Data Confirmation of as documented by pronouncing clinician: no pulse, no respirations, no heart sounds and pupils fixed and dilated Family: at bedside Attending physician: CÉSAR Edmonds
== END 2024-07-31 21:50 | disposition expired | DRG 208 ==
LOC: HO.ED 20:36 → HO.EDOVER 20:48 → HO.ICU 21:02 → HO.IMC 07-24 14:25
PROVIDERS: Internal Medicine Pulmonary Disease; Admitting Provider Registered Nurse Community Health; Emergency Provider Emergency Medicine Emergency Medical Services; PCP Hospitalist; Visit Provider Student in an Organized Health Care Education/Training Program
DX: J69.0 Pneumonitis due to inhalation of food and vomit (principal); J96.02 Acute respiratory failure with hypercapnia; J96.01 Acute respiratory failure with hypoxia; R78.81 Bacteremia; G40.909 Epilepsy, unspecified, not intractable, without status epilepticus; E11.9 Type 2 diabetes mellitus without complications; F17.210 Nicotine dependence, cigarettes, uncomplicated; Z71.6 Tobacco abuse counseling; B95.2 Enterococcus as the cause of diseases classified elsewhere; F25.0 Schizoaffective disorder, bipolar type; N40.1 Benign prostatic hyperplasia with lower urinary tract symptoms; R33.8 Other retention of urine; Z66 Do not resuscitate; Z51.5 Encounter for palliative care; Z20.822 Contact with and (suspected) exposure to COVID-19; Z87.820 Personal history of traumatic brain injury; Z91.199 Patient's noncompliance with other medical treatment and regimen due to unspecified reason; Z79.4 Long term (current) use of insulin; Z79.51 Long term (current) use of inhaled steroids; Z79.82 Long term (current) use of aspirin; Z79.84 Long term (current) use of oral hypoglycemic drugs; Z79.899 Other long term (current) drug therapy
CPT/HCPCS: 0241U; 36415; 36600; 71045; 74176; 80048; 80053; 80076; 81001; 82040; 82140; 82803; 82947; 83605; 83735; 84100; 85025; 87040; 87077; 87186; 87205; 92526; 92610; 93005; 94002; 94003; 99285; J0295; J0330; J0692; J0696; J0878; J1200; J1265; J1308; J1630; J1650; J1938; J2020; J2250; J2270; J2359; J2371; J2704; J2919; J3010; J3360; J3475; P9047

== ENCOUNTER → 2024-07-21 17:30 | Outpatient (BNV) | payer MEDICARE, SELFPAY | PROVIDERS: Admitting Provider Registered Nurse Community Health; Emergency Provider Emergency Medicine Emergency Medical Services; PCP Hospitalist; Visit Provider Internal Medicine Cardiovascular Disease | DX: I45.2 Bifascicular block (principal); R00.1 Bradycardia, unspecified; I45.10 Unspecified right bundle-branch block; I51.7 Cardiomegaly | CPT/HCPCS: 93010 ==

== ENCOUNTER → 2024-07-21 17:37 | Outpatient (BNV) | payer MEDICARE, SELFPAY | PROVIDERS: Emergency Provider Emergency Medicine Emergency Medical Services; Visit Provider Radiology Neuroradiology | DX: J84.89 Other specified interstitial pulmonary diseases (principal); Z93.0 Tracheostomy status | CPT/HCPCS: 71045 ==

== ENCOUNTER 2024-07-21 20:37 | Outpatient (BNV) | payer MEDICARE, SELFPAY | END 2024-07-28 08:00 | PROVIDERS: Admitting Provider Registered Nurse Community Health; Emergency Provider Emergency Medicine Emergency Medical Services; PCP Hospitalist; Visit Provider Radiology Diagnostic Radiology | DX: N20.0 Calculus of kidney (principal) | CPT/HCPCS: 74176 ==

== ENCOUNTER 2024-07-21 20:37 | Outpatient (BNV) | payer MEDICARE, SELFPAY | END 2024-07-22 08:42 | PROVIDERS: Admitting Provider Registered Nurse Community Health; Emergency Provider Emergency Medicine Emergency Medical Services; PCP Hospitalist; Visit Provider Internal Medicine Cardiovascular Disease | DX: I45.10 Unspecified right bundle-branch block (principal); R00.1 Bradycardia, unspecified | CPT/HCPCS: 93010 ==

== ENCOUNTER → 2024-07-21 20:37 | Outpatient (BNV) | payer MEDICARE, SELFPAY | PROVIDERS: Admitting Provider Registered Nurse Community Health; Emergency Provider Emergency Medicine Emergency Medical Services; PCP Hospitalist; Visit Provider Hospitalist | DX: J96.01 Acute respiratory failure with hypoxia (principal); J96.02 Acute respiratory failure with hypercapnia; R78.81 Bacteremia; B95.2 Enterococcus as the cause of diseases classified elsewhere; E11.9 Type 2 diabetes mellitus without complications | CPT/HCPCS: 99232 ==

== ENCOUNTER → 2024-07-21 20:37 | Outpatient (BNV) | payer MEDICARE, SELFPAY | PROVIDERS: Admitting Provider Registered Nurse Community Health; Emergency Provider Emergency Medicine Emergency Medical Services; PCP Hospitalist; Visit Provider Internal Medicine | DX: J96.01 Acute respiratory failure with hypoxia (principal); J96.02 Acute respiratory failure with hypercapnia; R78.81 Bacteremia; B95.2 Enterococcus as the cause of diseases classified elsewhere; R33.9 Retention of urine, unspecified | CPT/HCPCS: 99232; 99499 ==

== ENCOUNTER → 2024-07-21 20:37 | Outpatient (BNV) | payer MEDICARE, SELFPAY | PROVIDERS: Admitting Provider Registered Nurse Community Health; Emergency Provider Emergency Medicine Emergency Medical Services; PCP Hospitalist; Visit Provider Registered Nurse Community Health | DX: J44.9 Chronic obstructive pulmonary disease, unspecified (principal); J96.02 Acute respiratory failure with hypercapnia; T17.908A Unspecified foreign body in respiratory tract, part unspecified causing other injury, initial encounter; D72.829 Elevated white blood cell count, unspecified; I95.9 Hypotension, unspecified | CPT/HCPCS: 99291 ==

== ENCOUNTER → 2024-07-21 20:37 | Outpatient (BNV) | payer MEDICARE, SELFPAY | PROVIDERS: Admitting Provider Registered Nurse Community Health; Emergency Provider Emergency Medicine Emergency Medical Services; PCP Hospitalist; Visit Provider Internal Medicine Pulmonary Disease | DX: R78.81 Bacteremia (principal); B95.2 Enterococcus as the cause of diseases classified elsewhere; B95.5 Unspecified streptococcus as the cause of diseases classified elsewhere; T17.908A Unspecified foreign body in respiratory tract, part unspecified causing other injury, initial encounter; E11.9 Type 2 diabetes mellitus without complications; J96.01 Acute respiratory failure with hypoxia; J96.02 Acute respiratory failure with hypercapnia | CPT/HCPCS: 99291 ==